=== PATIENT | male | born 1940 | race Caucasian/White ===

== ENCOUNTER 2021-06-12 11:58 | Emergency (ER) | payer MEDICARE, SELFPAY ==
--- NOTE | ~2021-06-12 | XR_ITS ---
EXAMINATION: XR chest 2V DATE: 06/12/2021 12:35 INDICATION: Cough and congestion TECHNIQUE: PA and lateral views of the chest are obtained. COMPARISON: None available FINDINGS: The lungs are free of acute opacities. There is no pleural effusion or pneumothorax. The ca rdiomediastinal silhouette is normal. There is mild thoracic spondylosis. IMPRESSION: 1. No acute cardiopulmonary abnormality. Reviewed, dictated and finalized at location A.
--- NOTE | 2021-06-12 12:07 | ED.URI ---
HPI - URI/Sore Throat General Chief Complaint: Upper Respiratory Infection Stated Complaint: Congestion, Coughing Time Seen by Provider: 06/12/21 12:20 Source: patient and RN notes reviewed Mode of arrival: ambulatory Limitations: no limitations History of Present Illness HPI Narrative: 80-year-old male presents with concern for cough, coughing fits, shortness of breath for approximately 1 week. He denies any nasal congestion, sore throat, body aches, chills, fever. Reports after a coughing fit he will sneeze and have rhinorrhea. He denies any [id number] intervention. Reports he has been vaccinated for Covid. MD elicited complaint: cough Related Data Home Medications Medication Instructions Recorded Confirmed amlodipine 5 mg PO DAILY 06/12/21 06/12/21 fluticasone propionate [Flonase 1 spray INTRANASAL DAILY 06/12/21 06/12/21 Allergy Relief] [id number]-[id number] 1 inh INHALATION DAILY 06/12/21 06/12/21 [Trelegy Ellipta] irbesartan-hydrochlorothiazide 1 tablet PO DAILY 06/12/21 06/12/21 Allergies Allergy/AdvReac Type Severity Reaction Status Date / Time pain medicine AdvReac Nausea and Uncoded 06/12/21 12:18 Vomiting Review of Systems Review of Systems: CONSTITUTIONAL: Denies malaise, chills, sweats, or fever. EYES: Denies visual changes, redness, or discharge. ENT: Reports rhinorrhea. Denies congestion, sinus pain, otalgia and sore throat. CARDIOVASCULAR: Denies chest pain, palpitations, or edema. RESPIRATORY: Reports cough, dyspnea. GASTROINTESTINAL: Denies abdominal pain, nausea, vomiting, diarrhea SKIN: Denies rash or itching. MUSCULOSKELETAL: Denies myalgia. NEUROLOGIC: Denies headache. All systems reviewed & are unremarkable except as noted in HPI and below PMFSH Comments At time of signature, agree with nursing past medical, surgical, social and family history. There is no relevant family history pertinent to the presenting complaint Exam Narrative: GENERAL: Well-appearing, well-nourished, and in no acute distress. HEAD: Normocephalic EYES: PERRLA, conjunctivae clear ENT: Nares clear. Mucous membranes moist. TM pearly negrete with dull light reflex bilaterally; no tragal tenderness. Oropharynx erythematous without lesions. Tonsils enlarged and without exudate, no drooling, no hoarseness, no trismus, uvula midline. NECK: Supple. No lymphadenopathy CHEST: Scattered inspiratory and expiratory wheeze, otherwise clear to auscultation, lower lobe slightly diminished otherwise breath sounds equal. No rhonchi, rales, or stridor. No respiratory distress, speaks in full sentences. HEART: Regular rate and rhythm. No murmur heard. SKIN: Warm, dry, no rash. NEURO: Alert and oriented x3. PSYCH: Normal mood and affect Course Course Emergency Course: Patient is aware of diagnosis, understands and agrees to treatment plan. Anticipatory guidance given. Patient agrees to follow-up as directed and is aware of reasons to seek care at the emergency department. Portions of this record may have been created with voice recognition software Vital Signs Vital signs: Reviewed. MDM - URI/Sore Throat MDM Narrative Medical decision making narrative: Differential diagnosis considered: [place] virus, strep pharyngitis, allergic rhinitis, upper respiratory tract infection, sinusitis, rhinosinusitis, nasopharyngitis. viral pharyngitis, otitis media, otitis externa, pneumonia, bronchitis, viral cough syndrome, viral syndrome, and influenza. Exam findings show no acute concerns or changes; patient is non-toxic appearing and is in no distress. Patient is appropriate for outpatient treatment and follow-up. Imaging Data My impression: Images reviewed, interpreted by radiologist, agree, see report. Radiologist's impression: EXAMINATION: XR chest 2V DATE: 06/12/2021 12:35 INDICATION: Cough and congestion TECHNIQUE: PA and lateral views of the chest are obtained. COMPARISON: None available FINDINGS: The lungs are f
[2021-06-12 12:08] VITALS: BP 106/81; PULSE 92; RESP 20; TEMP 37.3; O2SAT 100
== END 2021-06-12 13:02 | disposition home or self-care (01) ==
PROVIDERS: Emergency Provider Nurse Practitioner; PCP Internal Medicine
DX: J44.1 Chronic obstructive pulmonary disease with (acute) exacerbation (principal); E78.00 Pure hypercholesterolemia, unspecified; I10 Essential (primary) hypertension; Z85.46 Personal history of malignant neoplasm of prostate
CPT/HCPCS: 71046; 99203; G0463

== ENCOUNTER 2021-07-08 11:33 | Emergency (ER) | payer MEDICARE, SELFPAY ==
--- NOTE | ~2021-07-08 | XR_ITS ---
EXAMINATION: XR chest 2V EXAM DATE: 07/08/2021 12:06 INDICATION: Shortness of breath, frequent cough, symptoms 2 days. TECHNIQUE: Frontal and lateral projections of the chest obtained and reviewed. Comparison is made to prior examination from 06/12/2021. FINDINGS: Biapical capping. The lungs are hyperinflated which can be seen with chronic obstructive p ulmonary disease (a clinical diagnosis of functional impairment), but is not diagnostic of it. No con fluent consolidation, pneumothorax or pleural effusion suspected. There are mild bony degenerative ch anges. IMPRESSION: 1. No acute cardiopulmonary findings. Reviewed, dictated and finalized at location B.
[2021-07-08 11:40] VITALS: BP 144/77; PULSE 102; RESP 20; TEMP 36.8; O2SAT 96
--- NOTE | 2021-07-08 11:40 | ED.URI ---
HPI - URI/Sore Throat General Chief Complaint: Upper Respiratory Infection Stated Complaint: Shortness of breath, coughing Time Seen by Provider: 07/08/21 11:41 Source: patient and RN notes reviewed History of Present Illness HPI Narrative: Patient is a 80-year-old male who presents the urgent care with complaints of chronic cough and shortness of breath. Patient was seen on 12 June with a negative chest x-ray and given prednisone. Patient was then seen at his primary care office on 21 June and given prednisone and doxycycline. Patient states that his symptoms greatly improve with steroids however they have returned over the weekend. Patient states he is increased shortness of breath with exertion. States that he cannot sleep at night due to the persistent cough. Denies of any fevers. Denies of any contact or exposure with Covid. 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 No other acute complaints. No acute distress noted. Patient aware the plan of care. Some parts of this dictation were generated by voice recognition software and may contain typographical and/or grammatical inaccuracies. Related Data Home Medications Medication Instructions Recorded Confirmed amlodipine 5 mg PO DAILY 06/12/21 07/08/21 fluticasone propionate [Flonase 1 spray INTRANASAL DAILY 06/12/21 07/08/21 Allergy Relief] irbesartan-hydrochlorothiazide 1 tablet PO DAILY 06/12/21 07/08/21 budesonide-formoterol [Symbicort] See Rx Instructions .ROUTE .COMPLEX 07/08/21 07/08/21 [id number]-qknpxdprz-ahjmieyu See Rx Instructions .ROUTE .COMPLEX 07/08/21 07/08/21 [Trelegy Ellipta] montelukast 10 mg PO DAILY 07/08/21 07/08/21 simvastatin 40 mg PO DAILY 07/08/21 07/08/21 tamsulosin mg PO 07/08/21 Allergies Allergy/AdvReac Type Severity Reaction Status Date / Time pain medicine AdvReac Nausea and Uncoded 07/08/21 11:35 Vomiting Review of Systems Review of Systems: CONSTITUTIONAL: Denies fever, chills, or sweats. EYES: Denies visual changes, redness, or discharge. ENT: Denies rhinorrhea, congestion, sore throat, or otalgia. CARDIOVASCULAR: Denies chest pain, palpitations, or edema. RESPIRATORY: Reports of nonproductive cough and intermittent dyspnea GASTROINTESTINAL: Denies abdominal pain, nausea, vomiting, or diarrhea. GENITOURINARY: Denies dysuria or hematuria. SKIN: Denies rash or itching. MUSCULOSKELETAL: Denies back pain, joint pain, or myalgia. NEUROLOGIC: Denies headache, numbness, or weakness. All other systems reviewed are negative, except as documented in HPI. PMFSH Comments At the time of my signature, I reviewed and agree with the nursing past medical, surgical, social, and family history. There is no relevant family history pertinent to the patient complaint. Exam Narrative: GENERAL: This is a well-nourished, well-developed patient, in no apparent distress. HEAD: normocephalic, atraumatic. EYES: PERRL. Sclera clear/white. Vision is grossly intact. EARS: External ears normal NOSE: External nose normal with no obvious nasal discharge, nares without redness, no rhinorrhea. THROAT: Mucous membranes moist NECK: Neck supple CARDIOVASCULAR: Regular rate and rhythm without murmurs, gallops, or rubs. RESPIRATORY: Expiratory wheezes with crackles/coarseness throughout SKIN: warm, intact with no suspicious lesions or rash, good texture and turgor. NEURO: awake, alert, and oriented to person, place and time. There were no obvious focal neurologic abnormalities. EXTREMITIES: No clubbing, cyanosis, or edema. Course Vital Signs Vital signs: Vital Signs Temperature 98.3 F 07/08/21 11:40 Pulse Rate 102 H 07/08/21 11:40 Respiratory Rate 20 07/08/21 11:40 Blood Pressure 144/77 H 07/08/21 11:40 Pulse Oximetry 96 07/08/21 11:40 Temperature 98.3 F 07/08/21 11:56 Pulse Rate 102 H 07/08/21 11:56 Respiratory Ra
[2021-07-08 11:56] VITALS: BP 144/77; PULSE 102; RESP 20; TEMP 36.8; O2SAT 96
== END 2021-07-08 12:32 | disposition home or self-care (01) ==
PROVIDERS: Emergency Provider Nurse Practitioner Family; PCP Internal Medicine
DX: J44.9 Chronic obstructive pulmonary disease, unspecified (principal); E78.00 Pure hypercholesterolemia, unspecified; I10 Essential (primary) hypertension; Z85.46 Personal history of malignant neoplasm of prostate
CPT/HCPCS: 71046; 99213; G0463

== ENCOUNTER 2022-03-28 16:59 | Emergency (ER) | payer MEDICARE, SELFPAY ==
--- NOTE | ~2022-03-28 | XR_ITS ---
XR chest 2V 03/28/2022 17:20 Indication: Cough and congestion Procedure: 2 view chest Comparison: Comparison to multiple prior studies sequentially, with oldest reviewed study dated 02/2021. Findings: There is biapical pleural thickening/nodularity which is slightly more prominent than on pr ior studies. There is developing patchy bilateral airspace disease. No significant pleural effusion. The lungs are hyperinflated which is consistent with, but not diagnostic of chronic obstructive pulmo nary disease. Heart size is normal. There is atherosclerosis of the aorta. Impression: 1: Developing patchy bilateral airspace disease, compatible with pneumonia. 2: Progression of nodular pleural pleural thickening at the lung apices. Correlation with CT chest re commended for further assessment. Reviewed, dictated and finalized at location B. Impression: 1: Developing patchy bilateral airspace disease, compatible with pneumonia. 2: Progression of nodular pleural pleural thickening at the lung apices. Correl ation with CT chest recommended for further assessment.
--- NOTE | 2022-03-28 17:00 | ED.URI ---
HPI - URI/Sore Throat General Chief Complaint: Upper Respiratory Infection Stated Complaint: Chest congestion cough Time Seen by Provider: 03/28/22 17:00 Source: patient Mode of arrival: ambulatory Limitations: no limitations History of Present Illness HPI Narrative: Mr. Clarke is a an 81-year-old male patient presenting to the clinic today with complaints of cough and chest congestion x 1 week. Reports that he is having a productive cough with yellow phlegm. He denies any known fever. Reports that he is short of breath and rates his shortness of breath a 9 out of 10 currently. History of COPD MD elicited complaint: sore throat and nasal congestion Related Data Home Medications Medication Instructions Recorded Confirmed amlodipine 5 mg PO DAILY 06/12/21 03/28/22 fluticasone propionate [Flonase 1 spray INTRANASAL DAILY 06/12/21 03/28/22 Allergy Relief] irbesartan-hydrochlorothiazide 1 tablet PO DAILY 06/12/21 03/28/22 budesonide-formoterol [Symbicort] See Rx Instructions .ROUTE .COMPLEX 07/08/21 03/28/22 [id number]-[id number] See Rx Instructions .ROUTE .COMPLEX 07/08/21 03/28/22 [Trelegy Ellipta] montelukast 10 mg PO DAILY 07/08/21 03/28/22 simvastatin 40 mg PO DAILY 07/08/21 03/28/22 tamsulosin 0.4 mg PO DAILY 07/08/21 03/28/22 Allergies Allergy/AdvReac Type Severity Reaction Status Date / Time pain medicine AdvReac Nausea and Uncoded 03/28/22 17:03 Vomiting Review of Systems Review of Systems: Pertinent positives per HPI. Patient denies any fever, chills, rash, headache, visual changes, dizziness, cough, shortness of breath, chest pain, palpitations, nausea, vomiting, diarrhea, constipation, abdominal pain, or any urinary issues. PMFSH Comments At the time of my signature, I reviewed and agree with the nursing past medical, surgical, social, and family history. There is no relevant family history pertinent to the patient complaint. Exam Narrative: General: Well-developed, well nourished, in mild respiratory distress Head: Normocephalic, atraumatic Eyes: Pupils equally round and reactive to light bilaterally, EOM intact, sclera and conjunctive clear, no discharge, lids normal Ears: TMs intact and clear, ear canals clear, no drainage, grossly hearing normal. Nose: Nares patent, clear nasal discharge, clear nasal inflammation, no sinus tenderness. Mouth: Oral pharynx without lesions or masses, good dentition, MMM. Neck: Supple, trachea midline, no enlargement of anterior or posterior cervical nodes, no thyroid masses or goiter palpable. Cardio: Regular rate and rhythm, s1 and s2 normal, no murmur appreciated. Resp: Mild retractions, expiratory wheezing with rhonchi throughout, no rales or rubs Course Course Emergency Course: Portions of this record may have been created with voice recognition software. Level of Care: Express Care Visit Vital Signs Vital signs: Vital Signs Temperature 37.9 C H 03/28/22 17:05 Pulse Rate 107 H 03/28/22 17:05 Respiratory Rate 24 H 03/28/22 17:05 Blood Pressure 130/59 L 03/28/22 17:05 Pulse Oximetry 90 03/28/22 17:05 Temperature 37.9 C H 03/28/22 17:05 Pulse Rate 107 H 03/28/22 17:05 Respiratory Rate 24 H 03/28/22 17:05 Blood Pressure 130/59 L 03/28/22 17:05 Pulse Oximetry 90 03/28/22 17:05 Vital signs reviewed MDM - URI/Sore Throat MDM Narrative Medical decision making narrative: At the time of visit patient was resting comfortably on the exam table. X-ray shows probable pneumonia. Will treat with a course of azithromycin and Augmentin DuoNeb was given in the clinic and this improved his breathing. Discharge instructions were reviewed with the patient he voiced understanding Differential Diagnosis Differential diagnosis: Likely upper respiratory infection, sinusitis, viral infection, bronchitis, influenza and pharyngitis Lab Data Labs: Lab Results 03/28/22 Range/Units Unknown POC SARS CoV-2 Ag Negative (Ne
[2022-03-28 17:05] VITALS: BP 130/59; PULSE 107; RESP 24; TEMP 37.9; O2SAT 90
[2022-03-28] MEDS: IPRATROPIUM BR 0.02% INH SOLN 0.5 MG/2.5 ML VIAL INHALATION (17:40)
[2022-03-28] MEDS: ALBUTEROL SULFATE NEB 2.5 MG/3 ML INH INHALATION (17:40)
== END 2022-03-28 18:09 | disposition home or self-care (01) ==
LOC: EXPBETH 17:02
PROVIDERS: Emergency Provider Nurse Practitioner Family; PCP Internal Medicine
DX: J22 Unspecified acute lower respiratory infection (principal); Z20.822 Contact with and (suspected) exposure to COVID-19; J44.9 Chronic obstructive pulmonary disease, unspecified
CPT/HCPCS: 71046; 87426; 94640; 99213; C9803; G0463

== ENCOUNTER 2022-12-25 09:32 | Emergency (ER) | payer MEDICARE, SELFPAY ==
--- NOTE | ~2022-12-25 | XR_ITS ---
EXAMINATION: XR humerus RT DATE: 12/25/2022 10:51 INDICATION: Right upper arm injury. TECHNIQUE: 2 views of right humerus on 3 radiographs were obtained. COMPARISON: None. FINDINGS: Bone alignment is normal. No fracture. There is mild osteoarthritis of glenohumeral joint a nd severe osteoarthritis of acromioclavicular joint. IMPRESSION: 1. Polyarticular osteoarthritis. Reviewed, dictated and finalized at location A. ERS INSPECTOR
--- NOTE | ~2022-12-25 | XR_ITS ---
EXAMINATION: XR shoulder RT min 2V INDICATION: Right shoulder pain TECHNIQUE: Four views of the right shoulder are submitted. COMPARISON: None FINDINGS: Normal alignment. No fracture. There is advanced osteoarthritis at the acromioclavicular fernandez int and mild osteoarthritis of the glenohumeral joint. Soft tissues are unremarkable. IMPRESSION: 1. Osteoarthritis without acute osseous abnormality. Reviewed, dictated and finalized at location L. ING ROOM MACHINE OPERATOR
[2022-12-25 09:54] VITALS: BP 109/77; PULSE 84; RESP 20; TEMP 36.8; O2SAT 97
--- NOTE | 2022-12-25 10:26 | ED.EXTPRO ---
HPI - Extremity Problem General Chief complaint: Extremity Problem,Nontraumatic Stated complaint: Right shoulder injury Source: patient and RN notes reviewed History of Present Illness HPI Narrative: 82 yo M presents to urgent care with complaints of right upper arm pain. Pt states 3 weeks ago he was playing with his grandson when he attempted to catch his grandson running at him with his right arm. Patient states his right arm was taken back more than he was expecting and has been having pain ever since. Patient reports worsening pain when he attempts to lift his right arm. Denies any shoulder pain, numbness, tingling, neck pain, chest pain, shortness of breath. Patient has been taking Advil with moderate relief. Some parts of this dictation were generated by voice recognition software and may contain typographical and/or grammatical inaccuracies. Related Data Home Medications Medication Instructions Recorded Confirmed amlodipine 5 mg tablet 5 mg PO DAILY 06/12/21 03/28/22 fluticasone propionate 50 1 spray intranasal DAILY 06/12/21 03/28/22 mcg/actuation nasal spray,suspension (Flonase Allergy Relief) irbesartan 150 1 tablet PO DAILY 06/12/21 03/28/22 mg-hydrochlorothiazide 12.5 mg tablet budesonide-formoterol HFA 160 See Rx Instructions .Route .COMPLEX 07/08/21 03/28/22 mcg-4.5 mcg/actuation aerosol inhaler (Symbicort) fluticasone fur. 100 mcg-umeclid See Rx Instructions .Route .COMPLEX 07/08/21 03/28/22 62.5 mcg-vilant 25 mcg inhalat.powder (Trelegy Ellipta) simvastatin 40 mg tablet 40 mg PO DAILY 07/08/21 03/28/22 tamsulosin 0.4 mg capsule 0.4 mg PO DAILY 07/08/21 03/28/22 Allergies Allergy/AdvReac Type Severity Reaction Status Date / Time pain medicine AdvReac Nausea and Uncoded 03/28/22 17:03 Vomiting Review of Systems Review of Systems: CONSTITUTIONAL: Denies fever, chills, or sweats. EYES: Denies visual changes, redness, or discharge. ENT: Denies otalgia and sore throat CARDIOVASCULAR: Denies chest pain, palpitations, or edema. RESPIRATORY: Denies cough or dyspnea. GASTROINTESTINAL: Denies abdominal pain, nausea, vomiting, or diarrhea. GENITOURINARY: Denies dysuria or hematuria. SKIN: Denies rash or itching. MUSCULOSKELETAL: Right upper arm pain NEUROLOGIC: Denies headache, numbness, or weakness. PMFSH Comments At the time of my signature, I reviewed and agree with the nursing past medical, surgical, social, and family history. There is no relevant family history pertinent to the patient complaint. Exam Narrative: GENERAL: This is a well-nourished, well-developed patient, in no apparent distress. HEAD: normocephalic, atraumatic. EYES: Sclera clear/white. Vision is grossly intact. EARS: External ears normal NECK: Neck supple, non-tender without lymphadenopathy, masses or thyromegaly. CARDIOVASCULAR: Regular rate and rhythm without murmurs, gallops, or rubs. RESPIRATORY: Clear to auscultation. Breath sounds equal bilaterally. No wheezes, rales, or rhonchi. GASTROINTESTINAL: Abdomen soft, non-tender, nondistended. Bowel sounds are active. No hepato-splenomegaly, or palpable masses. No guarding. SKIN: warm, intact with no suspicious lesions or rash, good texture and turgor. NEURO: awake, alert, and oriented to person, place and time. There were no obvious focal neurologic abnormalities. EXTREMITIES: Tenderness to right mid humerus. Limited range of motion due to pain. Course Course Level of Care: Express Care Visit Vital Signs Vital signs: Vital Signs Temperature 98.2 F 12/25/22 09:54 Pulse Rate 84 12/25/22 09:54 Respiratory Rate 20 12/25/22 09:54 Blood Pressure 109/77 12/25/22 09:54 Pulse Oximetry 97 12/25/22 09:54 Oxygen Delivery Room Air 12/25/22 09:54 Temperature 98.2 F 12/25/22 09:54 Pulse Rate 84 12/25/22 09:54 Respiratory Rate 20 12/25/22 09:54 Blood Pressure 109/77 12/25/22 09:54 Pulse Oximetry 97 12/25/22 09:
== END 2022-12-25 11:22 | disposition home or self-care (01) ==
PROVIDERS: Emergency Provider Nurse Practitioner Family; PCP Internal Medicine
DX: S46.911A Strain of unspecified muscle, fascia and tendon at shoulder and upper arm level, right arm, initial encounter (principal); X50.0XXA Overexertion from strenuous movement or load, initial encounter; E78.00 Pure hypercholesterolemia, unspecified; I10 Essential (primary) hypertension; J44.9 Chronic obstructive pulmonary disease, unspecified; Z85.46 Personal history of malignant neoplasm of prostate
CPT/HCPCS: 73030; 73060; 99213; G0463

== ENCOUNTER 2023-01-10 08:51 | Emergency (ER) | payer MEDICARE, SELFPAY ==
--- NOTE | ~2023-01-10 | XR_ITS ---
EXAMINATION: XR chest 2V DATE: 01/10/2023 09:09 INDICATION: Cough and shortness of breath. Rhonchi. TECHNIQUE: Frontal and lateral views of the chest were obtained. COMPARISON: Chest 2 views 03/28/2022, 07/08/21 FINDINGS: There is chronic scarring at the lung apices. A 1.6 cm nodule overlies the heart on the lat eral view. No pleural effusion or pneumothorax. The heart size is normal. IMPRESSION: 1. 1.6 cm pulmonary nodule suspicious for infection or malignancy. Noncontrast chest CT is recommende d. 2. Stable scarring at the lung apices. Reviewed, dictated and finalized at location A. T PILE HAMMER OPERATOR IMPRESSION: 1. 1.6 cm pulmonary nodule suspicious for infection or malignancy. Noncontrast chest CT is recommended. 2. Stable scarring at the lung apices.
[2023-01-10 08:55] VITALS: BP 146/51; PULSE 92; RESP 26; TEMP 37.3; O2SAT 100
--- NOTE | 2023-01-10 08:59 | ED.SOB ---
HPI - SOB/Dyspnea General Chief Complaint: Upper Respiratory Infection Stated Complaint: Shortness Of Breath Source: patient and RN notes reviewed History of Present Illness HPI Narrative: 82-year-old male with history of COPD, presents to urgent care with complaints of shortness of breath. Patient states he has had intermittent shortness of breath for last 2 weeks but yesterday it got worse. Patient is unable to lay flat. Denies any chest pain or fevers. Does report some coughing. Patient states he took a COVID test at home which was negative. Patient states he has contacted his primary care physician and completed a course of steroids and antibiotics with no relief. Some parts of this dictation were generated by voice recognition software and may contain typographical and/or grammatical inaccuracies. Related Data Home Medications Medication Instructions Recorded Confirmed amlodipine 5 mg tablet 5 mg PO DAILY 06/12/21 03/28/22 fluticasone propionate 50 1 spray intranasal DAILY 06/12/21 03/28/22 mcg/actuation nasal spray,suspension (Flonase Allergy Relief) irbesartan 150 1 tablet PO DAILY 06/12/21 03/28/22 mg-hydrochlorothiazide 12.5 mg tablet budesonide-formoterol HFA 160 See Rx Instructions .Route .COMPLEX 07/08/21 03/28/22 mcg-4.5 mcg/actuation aerosol inhaler (Symbicort) fluticasone fur. 100 mcg-umeclid See Rx Instructions .Route .COMPLEX 07/08/21 03/28/22 62.5 mcg-vilant 25 mcg inhalat.powder (Trelegy Ellipta) simvastatin 40 mg tablet 40 mg PO DAILY 07/08/21 03/28/22 tamsulosin 0.4 mg capsule 0.4 mg PO DAILY 07/08/21 03/28/22 Allergies Allergy/AdvReac Type Severity Reaction Status Date / Time pain medicine AdvReac Nausea and Uncoded 01/10/23 09:25 Vomiting Review of Systems Review of Systems: CONSTITUTIONAL: Denies fever, chills, or sweats. EYES: Denies visual changes, redness, or discharge. ENT: Denies otalgia and sore throat CARDIOVASCULAR: Denies chest pain, palpitations, or edema. RESPIRATORY: Dyspnea and cough GASTROINTESTINAL: Denies abdominal pain, nausea, vomiting, or diarrhea. GENITOURINARY: Denies dysuria or hematuria. SKIN: Denies rash or itching. MUSCULOSKELETAL: Denies back pain, joint pain, or myalgia. NEUROLOGIC: Denies headache, numbness, or weakness. PMFSH Comments At the time of my signature, I reviewed and agree with the nursing past medical, surgical, social, and family history. There is no relevant family history pertinent to the patient complaint. Exam Narrative: GENERAL: This is a well-nourished, well-developed patient, in no apparent distress. HEAD: normocephalic, atraumatic. EYES: PERRL. Sclera clear/white. Vision is grossly intact. NECK: Neck supple, non-tender without lymphadenopathy, masses or thyromegaly. CARDIOVASCULAR: Regular rate and rhythm without murmurs, gallops, or rubs. RESPIRATORY: Rhonchi throughout on auscultation. Patient is speaking in full sentences, however, appears to be breathing heavily. GASTROINTESTINAL: Abdomen soft, non-tender, nondistended. Bowel sounds are active. No hepato-splenomegaly, or palpable masses. No guarding. SKIN: warm, intact with no suspicious lesions or rash, good texture and turgor. NEURO: awake, alert, and oriented to person, place and time. There were no obvious focal neurologic abnormalities. EXTREMITIES: No clubbing, cyanosis, or edema. No joint tenderness, effusion, or edema noted. BACK: Nontender without deformity or crepitance. No flank tenderness. Course Course Level of Care: Express Care Visit Vital Signs Vital signs: Vital Signs Temperature 99.2 F 01/10/23 08:55 Pulse Rate 92 01/10/23 08:55 Respiratory Rate 26 H 01/10/23 08:55 Blood Pressure 146/51 H 01/10/23 08:55 Pulse Oximetry 100 01/10/23 08:55 Oxygen Delivery Room Air 01/10/23 08:55 Temperature 99.2 F 01/10/23 08:55 Pulse Rate 92 01/10/23 08:55 Respiratory Rate 26 H 01/10/23 08:55 Blood Pressure 146
--- NOTE | 2023-01-10 09:13 | ECG_ITS ---
Measurements Intervals [place] Rate: 112 P: 70 DC: 155 QRS: -24 QRSD: 85 T: 77 QT: 299 QTc: 409 Interpretive Statements SINUS TACHYCARDIA VENTRICULAR PREMATURE COMPLEX DELAYED PRECORDIAL R/S TRANSITION BORDERLINE T WAVE ABNORMALITY- HIGH LATERAL LEADS BASELINE ARTIFACT- I, II, III, AVR, AVL, AVF, V4-V6 ABNORMAL ECG NO PREVIOUS ECG AVAILABLE FOR COMPARISON Electronically Signed On 01-10-2023 14:33:01 [employer] by Akbar Lisa D.O.
== END 2023-01-10 09:34 | disposition short-term general hospital (02) ==
PROVIDERS: Emergency Provider Nurse Practitioner Family
DX: R06.02 Shortness of breath (principal); R94.31 Abnormal electrocardiogram [ECG] [EKG]
CPT/HCPCS: 71046; 93005; 99215; G0463

== ENCOUNTER 2023-10-05 10:29 | Emergency (ER) | payer MEDICARE, SELFPAY ==
[2023-10-05 10:36] VITALS: BP 113/45; PULSE 77; RESP 20; TEMP 36.2; O2SAT 90
--- NOTE | 2023-10-05 10:39 | ED.URI ---
HPI - URI/Sore Throat General Chief Complaint: Upper Respiratory Infection Stated Complaint: Cough/Chest Congestion Time Seen by Provider: 10/05/23 10:42 Source: patient and RN notes reviewed Mode of arrival: ambulatory Limitations: no limitations History of Present Illness HPI Narrative: 82-year-old male presents with concern for one-week history of cough, chest congestion. He has history of COPD. Reports he was using leftover cough medicine but he is out. He reports at the beginning of his symptoms he had body aches which have resolved. He denies fever, chills, sweats. Denies known sick contacts. Reports he has not used his albuterol inhaler is he has not felt short of breath. MD elicited complaint: cough Related Data Home Medications Medication Instructions Recorded Confirmed amlodipine 5 mg tablet 5 mg PO DAILY 06/12/21 01/10/23 fluticasone propionate 50 1 spray intranasal DAILY 06/12/21 01/10/23 mcg/actuation nasal spray,suspension (Flonase Allergy Relief) irbesartan 150 1 tablet PO DAILY 06/12/21 01/10/23 mg-hydrochlorothiazide 12.5 mg tablet budesonide-formoterol HFA 160 See Rx Instructions .Route .COMPLEX 07/08/21 01/10/23 mcg-4.5 mcg/actuation aerosol inhaler (Symbicort) fluticasone fur. 100 mcg-umeclid See Rx Instructions .Route .COMPLEX 07/08/21 01/10/23 62.5 mcg-vilant 25 mcg inhalat.powder (Trelegy Ellipta) simvastatin 40 mg tablet 40 mg PO DAILY 07/08/21 01/10/23 tamsulosin 0.4 mg capsule 0.4 mg PO DAILY 07/08/21 01/10/23 Allergies Allergy/AdvReac Type Severity Reaction Status Date / Time pain medicine AdvReac Nausea and Uncoded 01/10/23 09:25 Vomiting Review of Systems Review of Systems: CONSTITUTIONAL: Denies malaise, chills, sweats, or fever. EYES: Denies visual changes, redness, or discharge. ENT: Denies rhinorrhea, congestion, sinus pain, otalgia and sore throat. CARDIOVASCULAR: Denies chest pain, palpitations, or edema. RESPIRATORY: Reports cough and chest congestion. Denies dyspnea. GASTROINTESTINAL: Denies abdominal pain, nausea, vomiting, diarrhea SKIN: Denies rash or itching. MUSCULOSKELETAL: Denies myalgia. NEUROLOGIC: Denies headache. All systems reviewed & are unremarkable except as noted in HPI and below PMFSH Comments At time of signature, agree with nursing past medical, surgical, social and family history. There is no relevant family history pertinent to the presenting complaint Exam Narrative: GENERAL: Well-appearing, well-nourished, and in no acute distress. HEAD: Normocephalic EYES: PERRLA, conjunctivae clear ENT: Nares clear. Mucous membranes moist. TM pearly negrete with dull light reflex bilaterally; no tragal tenderness. Oropharynx not erythematous without lesions. Tonsils not enlarged and without exudate, no drooling, no hoarseness, no trismus, uvula midline. NECK: Supple. No lymphadenopathy CHEST: Inspiratory and expiratory wheeze noted throughout, aeration fair. Breath sounds equal. No rales or stridor. No respiratory distress, speaks in full sentences. HEART: Regular rate and rhythm. No murmur heard. SKIN: Warm, dry, no rash. NEURO: Alert and oriented x3. PSYCH: Normal mood and affect Course Course Emergency Course: Patient is aware of diagnosis, understands and agrees to treatment plan. Anticipatory guidance given. Patient agrees to follow-up as directed and is aware of reasons to seek care at the emergency department. Portions of this record may have been created with voice recognition software Level of Care: Express Care Visit Reevaluation(s) Reevaluation #1: Aeration improved, wheezing improve. There is still some scattered wheeze. Patient reports improvement in symptoms. Date: 10/05/23 Time: 11:18 Vital Signs Vital signs: Reviewed. MDM - URI/Sore Throat MDM Narrative Medical decision making narrative: Differential diagnosis considered: [place] virus, strep pharyngitis, allergic rhinitis, upper respiratory
[2023-10-05] MEDS: IPRATROPIUM BR 0.02% INH SOLN 0.5 MG/2.5 ML VIAL INHALATION (10:54)
[2023-10-05] MEDS: ALBUTEROL SULFATE NEB 2.5 MG/3 ML INH INHALATION (10:54)
[2023-10-05 11:15] VITALS: PULSE 76; RESP 16; O2SAT 92
== END 2023-10-05 11:28 | disposition home or self-care (01) ==
PROVIDERS: Emergency Provider Nurse Practitioner; PCP Internal Medicine
DX: J44.1 Chronic obstructive pulmonary disease with (acute) exacerbation (principal)
CPT/HCPCS: 94640; 99213; G0463

== ENCOUNTER 2023-12-29 09:34 | Emergency (ER) | payer MEDICARE, SELFPAY ==
[2023-12-29 09:46] VITALS: BP 136/72; PULSE 99; RESP 20; TEMP 36.9; O2SAT 96
--- NOTE | 2023-12-29 10:03 | ED.URI ---
HPI - URI/Sore Throat General Chief Complaint: Upper Respiratory Infection Stated Complaint: cough Time Seen by Provider: 12/29/23 10:03 Source: patient, RN notes reviewed and old records reviewed Mode of arrival: ambulatory Limitations: no limitations History of Present Illness HPI Narrative: 83 year old male presents to the [facility] with complaints of cough for over 1 month duration and has seen his PCP and received medication with no resolutions in his symptoms.Patient does report that he has history of COPD and takes Trelegy inhaler daily and he has also been using nebulizer treatments.Patient was treated with Doxycycline on 12/03/2023 and Prednisone also at that time. Patient reports that cough is worse at night and he has not been resting well for several weeks. Patient reports that he has been taking OTC cough medication without relief. MD elicited complaint: cough Pertinent past history: pneumonia, COPD and other (a fib) Onset (ago): month(s) Consistency: constant Able to tolerate fluids by mouth: Yes Treatments prior to arrival: other (OTC cough medication, completed antibiotic and Prednisone) Related Data Home Medications Medication Instructions Recorded Confirmed amlodipine 5 mg tablet 5 mg PO DAILY 06/12/21 12/29/23 fluticasone propionate 50 1 spray intranasal DAILY 06/12/21 12/29/23 mcg/actuation nasal spray,suspension (Flonase Allergy Relief) irbesartan 150 1 tablet PO DAILY 06/12/21 12/29/23 mg-hydrochlorothiazide 12.5 mg tablet budesonide-formoterol HFA 160 See Rx Instructions .Route .COMPLEX 07/08/21 12/29/23 mcg-4.5 mcg/actuation aerosol inhaler (Symbicort) fluticasone fur. 100 mcg-umeclid See Rx Instructions .Route .COMPLEX 07/08/21 12/29/23 62.5 mcg-vilant 25 mcg inhalat.powder (Trelegy Ellipta) simvastatin 40 mg tablet 40 mg PO DAILY 07/08/21 12/29/23 tamsulosin 0.4 mg capsule 0.4 mg PO DAILY 07/08/21 12/29/23 Allergies Allergy/AdvReac Type Severity Reaction Status Date / Time No Known Allergies Allergy Verified 12/29/23 10:11 Review of Systems Review of Systems: CONSTITUTIONAL: Reports malaise,no chills, sweats, or fever. EYES: Denies visual changes, redness, or discharge. ENT: Reports rhinorrhea, congestion, no sinus pain, no otalgia and no sore throat. CARDIOVASCULAR: Denies chest pain, palpitations, or edema. RESPIRATORY: Reports cough.? Reports some dyspnea with exertion at times GASTROINTESTINAL: Denies abdominal pain, nausea, vomiting, diarrhea SKIN: Denies rash or itching. MUSCULOSKELETAL: Denies myalgia. NEUROLOGIC: Denies headache. All systems reviewed & are unremarkable except as noted in HPI and below PMFSH Past Medical History Medical History (Updated 12/30/23 @ 11:33 by Mallory Power NP) Atrial fibrillation Chronic obstructive pulmonary disease (COPD) Hyperlipidemia Hypertension Pneumonia Surgical History Surgical History (Updated 12/30/23 @ 11:36 by Mallory Power NP) H/O inguinal hernia repair History of lumbosacral spine surgery Social History Social History (Updated 12/30/23 @ 11:34 by Mallory Power NP) Smoking status: Former smoker Alcohol intake: current Alcohol use details: social Substance use type: does not use Living arrangements: with family Occupation/Education: retired Gender identity (if verbalized by the patient): Male Comments At time of signature, agree with nursing past medical, surgical, social and family history. There is no relevant family history pertinent to the presenting complaint Exam Narrative: GENERAL: Well-appearing, well-nourished, and in no acute distress. HEAD: Normocephalic EYES: PERRLA, conjunctivae clear ENT: Nares clear, turbinates edematous and erythematous, clear discharge. Mucous membranes moist. TM pearly negrete with dull light reflex bilaterally; no tragal tenderness. Oropharynx erythematous without lesions. Tonsils not enlarged and withou
== END 2023-12-29 10:30 | disposition home or self-care (01) ==
PROVIDERS: Emergency Provider Registered Nurse; PCP Internal Medicine
DX: R05.9 Cough, unspecified (principal); J40 Bronchitis, not specified as acute or chronic; Z87.891 Personal history of nicotine dependence; I48.91 Unspecified atrial fibrillation; J44.9 Chronic obstructive pulmonary disease, unspecified; E78.5 Hyperlipidemia, unspecified; I10 Essential (primary) hypertension
CPT/HCPCS: 99213; G0463

== ENCOUNTER 2024-01-19 11:02 | Emergency (ER) | payer MEDICARE, SELFPAY ==
[2024-01-19 11:07] VITALS: BP 132/84; PULSE 83; RESP 20; TEMP 36.1; O2SAT 95
--- NOTE | 2024-01-19 11:19 | ECG_ITS ---
Measurements Intervals [place] Rate: 76 P: 1 [place]: 154 QRS: -11 QRSD: 105 T: 77 QT: 362 QTc: 408 Interpretive Statements SINUS RHYTHM VENTRICULAR PREMATURE COMPLEX BORDERLINE ECG COMPARED TO ECG 01/10/2023 09:13:13 SINUS RHYTHM NOW PRESENT Electronically Signed On 01-19-2024 11:25:03 CDT by Akbar Lisa D.O.
--- NOTE | 2024-01-19 11:53 | ED.GENADULT ---
HPI - General Adult General Chief complaint: Syncope Stated complaint: Feeling of Passing Out Source: patient Mode of arrival: ambulatory Limitations: no limitations History of Present Illness HPI narrative: Patient presents for evaluation of near syncope. He indicates he has had ten episodes today where he felt like he was going to pass out. No history of similar symptoms in the past. Denies any chest pain or shortness of breath. He has experienced a cough for the past few weeks. He has an underlying history of COPD and continues to smoke. He indicates he has a newer diagnosis of atrial fibrillation is currently anticoagulated with Eliquis. He has a pulse oximeter at home and it sounds like his heart rate today has been alternating between the 70s and 110's. Related Data Home Medications Medication Instructions Recorded Confirmed amlodipine 5 mg tablet 5 mg PO DAILY 06/12/21 12/29/23 irbesartan 150 1 tablet PO DAILY 06/12/21 12/29/23 mg-hydrochlorothiazide 12.5 mg tablet budesonide-formoterol HFA 160 See Rx Instructions .Route .COMPLEX 07/08/21 12/29/23 mcg-4.5 mcg/actuation aerosol inhaler (Symbicort) fluticasone fur. 100 mcg-umeclid See Rx Instructions .Route .COMPLEX 07/08/21 12/29/23 62.5 mcg-vilant 25 mcg inhalat.powder (Trelegy Ellipta) simvastatin 40 mg tablet 40 mg PO DAILY 07/08/21 12/29/23 tamsulosin 0.4 mg capsule 0.4 mg PO DAILY 07/08/21 12/29/23 apixaban 5 mg tablet (Eliquis) mg 01/19/24 metoprolol tartrate 25 mg tablet mg 01/19/24 Allergies Allergy/AdvReac Type Severity Reaction Status Date / Time No Known Allergies Allergy Verified 12/29/23 10:11 Review of Systems Review of Systems: CONSTITUTIONAL: Denies fever, chills, or sweats. EYES: Denies visual changes, redness, or discharge. ENT: Denies rhinorrhea, congestion, sore throat, or otalgia. CARDIOVASCULAR: Denies chest pain, palpitations, or edema. RESPIRATORY: Reports cough. Denies shortness of breath. GASTROINTESTINAL: Denies abdominal pain, nausea, vomiting, or diarrhea. GENITOURINARY: Denies dysuria or hematuria. SKIN: Denies rash or itching. MUSCULOSKELETAL: Denies back pain, joint pain, or myalgia. NEUROLOGIC: Reports several episodes today where he felt like he was going to pass out. Denies headache or numbness PMFSH Past Medical History Medical History Atrial fibrillation Chronic obstructive pulmonary disease (COPD) Hyperlipidemia Hypertension Pneumonia Surgical History Surgical History H/O inguinal hernia repair History of lumbosacral spine surgery Family History Family History Mother Family history unknown Social History Social History (Updated 01/19/24 @ 11:57 by EMILIE Polo, ) Smoking status: Current some day smoker Tobacco type: cigarettes Alcohol intake: current Alcohol use details: social Substance use type: does not use Living arrangements: with family Occupation/Education: retired Gender identity (if verbalized by the patient): Male Sexual Orientation (if Verbalized by the Patient): Straight or Heterosexual Exam Narrative: GENERAL: Well-appearing, well-nourished, and in no acute distress. HEAD: Normocephalic, atraumatic. EYES: PERRLA and EOMI. ENT: Nares clear, no rhinorrhea or epistaxis. Mucous membranes moist. Oropharynx without tonsillar hypertrophy exudate or other lesions. Bilateral TMs pearly negrete nonbulging NECK: Supple. No adenopathy or masses. No carotid bruits or JVD CHEST: Wheezing and rales noted in bilateral lung carl anteriorly HEART: Regular rate and rhythm. No murmur heard. Normal peripheral pulses. ABDOMEN: Soft, nontender, nondistended, normal active bowel sounds. EXTREMITIES: Normal range of motion. No edema. SKIN: Warm, dry, no rash. NEURO: No
== END 2024-01-19 12:04 | disposition short-term general hospital (02) ==
PROVIDERS: Emergency Provider Nurse Practitioner; PCP Internal Medicine
DX: R55 Syncope and collapse (principal); I48.91 Unspecified atrial fibrillation; J44.9 Chronic obstructive pulmonary disease, unspecified; E78.5 Hyperlipidemia, unspecified; I10 Essential (primary) hypertension; F17.210 Nicotine dependence, cigarettes, uncomplicated; Z79.899 Other long term (current) drug therapy; Z79.01 Long term (current) use of anticoagulants
CPT/HCPCS: 93005; 99213; G0463

== ENCOUNTER 2024-04-11 09:14 | Outpatient (CLI) | payer MEDICARE, SELFPAY ==
--- NOTE | ~2024-04-11 | US_ITS ---
US retroperitoneal comp 04/11/2024 10:05 Procedure: Realtime transabdominal ultrasound of the kidneys and bladder. Indication: Renal mass Comparison: No prior studies for comparison. Findings: Renal echotexture is normal bilaterally without hydronephrosis, contour deforming mass or r enal calculus. There are multiple bilateral renal cysts, largest on the right measuring 1.[address] left renal cyst measures 5.1 cm. The right kidney measures 9.8 cm and left kidney measures 11.4 cm . Bladder within normal limits. Prostate gland is enlarged. Impression: 1: Bilateral renal cysts. 2: Enlarged prostate gland. Reviewed, dictated and finalized at location B. Impression: 1: Bilateral renal cysts. 2: Enlarged prostate gland.
== END 2024-04-11 09:15 | disposition home or self-care (01) ==
PROVIDERS: PCP Internal Medicine; Visit Provider Urology
DX: N28.89 Other specified disorders of kidney and ureter (principal); N28.1 Cyst of kidney, acquired; N40.0 Benign prostatic hyperplasia without lower urinary tract symptoms
CPT/HCPCS: 76770

== ENCOUNTER 2024-10-16 09:27 | Emergency (ER) | payer MEDICARE, SELFPAY ==
--- NOTE | ~2024-10-16 | XR_ITS ---
EXAMINATION: XR chest 2V DATE: 10/16/2024 10:15 INDICATION: Cough. TECHNIQUE: Frontal and lateral views of the chest were obtained. COMPARISON: Chest 2 views 01/10/2023 FINDINGS: There is scarring at the lung apices. There are reticulonodular opacities in the lower lung zones. No pleural effusion or pneumothorax. The heart size is normal. IMPRESSION: 1. Stable scarring at the lung apices. 2. Reticulonodular opacities in the lower lung zones, consistent with pulmonary edema versus pneumoni a versus atelectasis. Reviewed, dictated and finalized at location A. K BROKER SUPERVISOR IMPRESSION: 1. Stable scarring at the lung apices. 2. Reticulonodular opacities in the lower lung zones, consistent with pulmonary edema versus pneumonia versus atelectasis.
[2024-10-16 09:42] VITALS: BP 124/59; PULSE 91; RESP 20; TEMP 36.3; O2SAT 94
--- NOTE | 2024-10-16 10:06 | ED.GENADULT ---
HPI - General Adult General Chief complaint: Upper Respiratory Infection Stated complaint: Chest Congestion/Cough/Shortness of Breath Source: patient Mode of arrival: ambulatory Limitations: no limitations History of Present Illness HPI narrative: Patient presents for evaluation of respiratory symptoms for the last 2 days. Symptoms include hot flashes, chills, cough, shortness of breath, and pleuritic chest pain. No nausea, vomiting, diarrhea, sore throat. His great grandchild currently has a cough. Pt has an underlying history of COPD. He smokes about 5 cigarettes per week. Related Data Home Medications Medication Instructions Recorded Confirmed amlodipine 5 mg tablet 5 mg PO DAILY 06/12/21 10/16/24 irbesartan 150 1 tablet PO DAILY 06/12/21 10/16/24 mg-hydrochlorothiazide 12.5 mg tablet budesonide-formoterol HFA 160 See Rx Instructions .Route .COMPLEX 07/08/21 10/16/24 mcg-4.5 mcg/actuation aerosol inhaler (Symbicort) fluticasone fur. 100 mcg-umeclid See Rx Instructions .Route .COMPLEX 07/08/21 10/16/24 62.5 mcg-vilant 25 mcg inhalat.powder (Trelegy Ellipta) simvastatin 40 mg tablet 40 mg PO DAILY 07/08/21 10/16/24 tamsulosin 0.4 mg capsule 0.4 mg PO DAILY 07/08/21 10/16/24 apixaban 5 mg tablet (Eliquis) 5 mg PO DAILY 01/19/24 10/16/24 metoprolol tartrate 25 mg tablet 25 mg PO DAILY 01/19/24 10/16/24 Allergies Allergy/AdvReac Type Severity Reaction Status Date / Time No Known Allergies Allergy Verified 10/16/24 09:48 Review of Systems Review of Systems: CONSTITUTIONAL: reports hot flashes and chills. EYES: Denies visual changes, redness, or discharge. ENT: Denies rhinorrhea, congestion, sore throat, or otalgia. CARDIOVASCULAR: Denies palpitations, or edema. RESPIRATORY: Reports cough and shortness of breath GASTROINTESTINAL: Denies abdominal pain, nausea, vomiting, or diarrhea. GENITOURINARY: Denies dysuria or hematuria. SKIN: Denies rash or itching. MUSCULOSKELETAL: Denies back pain, joint pain, or myalgia. NEUROLOGIC: Denies headache, numbness, dizziness, or weakness. PSYCHIATRIC: Denies anxiety or depression. [facility] Past Medical History Medical History Atrial fibrillation Chronic obstructive pulmonary disease (COPD) Hyperlipidemia Hypertension Pneumonia Surgical History Surgical History H/O inguinal hernia repair History of lumbosacral spine surgery Family History Family History Mother Family history unknown Social History Social History Smoking status: Current some day smoker Tobacco type: cigarettes Alcohol intake: current Alcohol use details: social Substance use type: does not use Living arrangements: with family Occupation/Education: retired Gender identity (if verbalized by the patient): Male Sexual Orientation (if Verbalized by the Patient): Straight or Heterosexual Exam Narrative: GENERAL: Well-appearing, well-nourished, and in no acute distress. HEAD: Normocephalic, atraumatic. EYES: PERRLA and EOMI. ENT: Nares clear, no rhinorrhea or epistaxis. Mucous membranes moist. Oropharynx without tonsillar hypertrophy exudate or other lesions. Bilateral TMs pearly negrete nonbulging NECK: Supple. No adenopathy or masses. No carotid bruits or JVD CHEST: Wheezing and rales noted in bilateral lung carl HEART: Regular rate and rhythm. No murmur heard. Normal peripheral pulses. ABDOMEN: Soft, nontender, nondistended, normal active bowel sounds. EXTREMITIES: Normal range of motion. No edema. SKIN: Warm, dry, no rash. NEURO: No focal deficits. Alert and oriented x3. PSYCH: Normal mood and affect. Course Course Emergency Course: this is an 83-year-old male who presented for evaluation of respiratory symptoms. Chest x-ray consistent with pneumonia. He was given nebulizer treatment and steroids while here. He will be discharge with Augmentin, azithromycin, prednisone, albuterol. He is advised not to smoke. He should follow-up with his primary provider tomorrow and go to the ER for worsening symptoms. Saturations here are normal. Patient is in agreement with plan of care. Level of Care: Express Care Visit Vital Signs Vital signs: Vital Signs Temperature 36.3 C L 10/16/24 09:42 Pulse Rate 91 10/16/24 09:42 Respiratory Rate 20 10/16/24 09:42 Blood Pressure 124/59 L 10/16/24 09:42 Pulse Oximetry 94 10/16/24 09:42 Temperature 36.3 C L 10/16/24 09:42 Pulse Rate 91 10/16/24 09:42 Respiratory Rate 20 10/16/24 09:42 Blood Pressure 124/59 L 10/16/24 09:42 Pulse Oximetry 94 10/16/24 09:42 Medical Decision Making Vital Signs Vital Signs: Vital Signs Temperature 36.3 C L 10/16/24 09:42 Pulse Rate 91 10/16/24 09:42 Respiratory Rate 20 10/16/24 09:42 Blood Pressure 124/59 L 10/16/24 09:42 Pulse Oximetry 94 10/16/24 09:42 Temperature 36.3 C L 10/16/24 09:42 Pulse Rate 91 10/16/24 09:42 Respiratory Rate 20 10/16/24 09:42 Blood Pressure 124/59 L 10/16/24 09:42 Pulse Oximetry 94 10/16/24 09:42 Imaging Data Radiologist's impression: EXAMINATION: XR chest 2V DATE: 10/16/2024 10:15 INDICATION: Cough. TECHNIQUE: Frontal and lateral views of the chest were obtained. COMPARISON: Chest 2 views 01/10/2023 FINDINGS: There is scarring at the lung apices. There are reticulonodular opacities in the lower lung zones. No pleural effusion or pneumothorax. The heart size is normal. IMPRESSION: 1. Stable scarring at the lung apices. 2. Reticulonodular opacities in the lower lung zones, consistent with pulmonary edema versus pneumonia versus atelectasis. Discharge Plan Discharge Clinical Impression: Community acquired pneumonia, COPD exacerbation Patient Disposition: Home, Self-Care Condition: Stable Instructions: Antibiotic Form, How to Stop Smoking (ED), COPD (Chronic Obstructive Pulmonary Disease) (ED), Pneumonia (ED) Additional Instructions: PLEASE DO NOT SMOKE CALL YOUR PRIMARY PROVIDER TOMORROW FOR A FOLLOW UP APPOINTMENT FOR WORSENING SYMPTOMS, PLEASE GO TO THE ER Patient Language: [place] Prescriptions: New prednisone 50 mg tablet 50 mg PO DAILY Qty: 5 0RF azithromycin 250 mg tablet See Rx Instructions .ROUTE .COMPLEX Qty: 6 0RF Rx Instructions: For 250 mg dose pack: take 500 mg today (day 1), then 250 mg for 4 days (days 2-5) amoxicillin-pot clavulanate 875-125 mg tablet 1 tablet PO Q12H Qty: 20 0RF albuterol sulfate 90 mcg/actuation HFA aerosol inhaler 2 puff inhalation QID PRN (Reason: shortness of breath or wheezing) Qty: 8.5 0RF No Action irbesartan-hydrochlorothiazide 150-12.5 mg Tablet 1 tablet PO DAILY amlodipine 5 mg Tablet 5 mg PO DAILY albuterol sulfate 90 mcg/actuation HFA aerosol inhaler 2 puff INHALATION QID PRN (Reason: shortness of breath or wheezing) Qty: 8.5 0RF metoprolol tartrate 25 mg tablet 25 mg PO DAILY Eliquis 5 mg tablet 5 mg PO DAILY Trelegy Ellipta 100-62.5-25 mcg blister with device See Rx Instructions .ROUTE .COMPLEX Rx Instructions: as prescribed tamsulosin 0.4 mg capsule 0.4 mg PO DAILY budesonide-formoterol [Symbicort] 160-4.5 mcg/actuation HFA aerosol inhaler See Rx Instructions .ROUTE .COMPLEX Rx Instructions: as prescribed simvastatin 40 mg tablet 40 mg PO DAILY codeine-guaifenesin 10-100 mg/5 mL liquid 5 ml PO Q6H PRN (Reason: cough) Qty: 120 0RF Rx Instructions: take at night can not drive while taking this medication Follow-up/Referrals: Surya,Tanmay Bettencourt MD [Primary Care Provider] - Time of Disposition: 10:45
[2024-10-16] MEDS: methylPREDNISolone SOD SUCC 125 MG VIAL IM (10:17)
[2024-10-16] MEDS: IPRATROPIUM 0.5 MG/ALBUTEROL SULFATE 2.5 MG AMPUL.NEB 3 ML INHALATION (10:18)
== END 2024-10-16 10:50 | disposition home or self-care (01) ==
PROVIDERS: Emergency Provider Nurse Practitioner; PCP Internal Medicine
DX: J18.9 Pneumonia, unspecified organism (principal); J44.1 Chronic obstructive pulmonary disease with (acute) exacerbation; F17.210 Nicotine dependence, cigarettes, uncomplicated; I48.91 Unspecified atrial fibrillation; I10 Essential (primary) hypertension; E78.5 Hyperlipidemia, unspecified
CPT/HCPCS: 71046; 96372; 99213; G0463; J2919

== ENCOUNTER 2024-10-22 09:12 | Emergency (ER) | payer MEDICARE, SELFPAY ==
--- NOTE | ~2024-10-22 | XR_ITS ---
EXAMINATION: XR chest 2V DATE: 10/22/2024 09:39 INDICATION: Continued cough TECHNIQUE: frontal and lateral views of the chest were obtained. COMPARISON: Chest radiograph dated 10/16/2024 FINDINGS: Again seen is prominent pleural parenchymal scarring at the bilateral apices of lungs. Unchanged mild streaky atelectasis/scarring at the anterior lung bases. No pulmonary edema, pleural effusion or pne umothorax. The cardiomediastinal silhouette is normal. Mild to moderate thoracic spondylosis. IMPRESSION: 1. 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 Reviewed, dictated and finalized at location [facility]. [facility] IMPRESSION: 1. Chronic pleural parenchymal scarring at the apices and mild streaky bibasila r atelectasis.
[2024-10-22 09:22] VITALS: BP 150/84; PULSE 76; RESP 16; TEMP 36.1; O2SAT 97
--- NOTE | 2024-10-22 09:40 | ED_ITS ---
HPI - URI/Sore Throat General Chief Complaint: Upper Respiratory Infection Stated Complaint: Chest congestion/tight/headache History of Present Illness HPI Narrative: Patient complaining of continued cough and wheezing at times. No fever no body aches no shortness of breath no chest pain. Patient states he was here and treated for pneumonia but continues to have a cough. Patient has a home nebulizer but has not been using it but has been using home inhalers as prescribed. Patient denies any shortness of breath no chest pain. Related Data Home Medications ?Medication ?Instructions ?Recorded ?Confirmed ?Last Taken ?Type amlodipine 5 mg tablet 5 mg PO DAILY 06/12/21 10/22/24 Unknown History irbesartan 150 1 tablet PO DAILY 06/12/21 10/22/24 Unknown History mg-hydrochlorothiazide 12.5 mg tablet budesonide-formoterol HFA 160 See Rx Instructions .Route .COMPLEX 07/08/21 10/22/24 Unknown History mcg-4.5 mcg/actuation aerosol inhaler (Symbicort) fluticasone fur. 100 mcg-umeclid See Rx Instructions .Route .COMPLEX 07/08/21 10/22/24 Unknown History 62.5 mcg-vilant 25 mcg inhalat.powder (Trelegy Ellipta) simvastatin 40 mg tablet 40 mg PO DAILY 07/08/21 10/22/24 Unknown History tamsulosin 0.4 mg capsule 0.4 mg PO DAILY 07/08/21 10/22/24 Unknown History apixaban 5 mg tablet (Eliquis) 5 mg PO DAILY 01/19/24 10/22/24 Unknown History metoprolol tartrate 25 mg tablet 25 mg PO DAILY 01/19/24 10/22/24 Unknown History Allergies Allergy/AdvReac Type Severity Reaction Status Date / Time No Known Allergies Allergy Verified 10/16/24 09:48 Review of Systems Review of Systems: CONSTITUTIONAL: Denies chills, or sweats. Reports fever and generalized body aches EYES: Denies visual changes, redness, or discharge. ENT: Denies otalgia. Reports nasal congestion runny nose and sore throat CARDIOVASCULAR: Denies chest pain, palpitations, or edema. RESPIRATORY: Denies dyspnea. Reports occasional cough GASTROINTESTINAL: Denies abdominal pain, nausea, vomiting, or diarrhea. GENITOURINARY: Denies dysuria or hematuria. SKIN: Denies rash or itching. MUSCULOSKELETAL: Denies back pain, joint pain, or myalgia. Reports generalized body aches NEUROLOGIC: Denies headache, numbness, or weakness. PSYCHIATRIC: Denies anxiety or depression. [facility] Past Medical History Medical History Atrial fibrillation Chronic obstructive pulmonary disease (COPD) Hyperlipidemia Hypertension Pneumonia Surgical History Surgical History H/O inguinal hernia repair History of lumbosacral spine surgery Family History Family History Mother Family history unknown Social History Social History Smoking status: Current some day smoker Tobacco type: cigarettes Alcohol intake: current Alcohol use details: social Substance use type: does not use Living arrangements: with family Occupation/Education: retired Gender identity (if verbalized by the patient): Male Sexual Orientation (if Verbalized by the Patient): Straight or Heterosexual Comments At time of signature, agree with nursing past medical, surgical, social and family history. There is no relevant family history pertinent to the presenting complaint Exam Narrative: The patient is a well-developed, well-nourished in no acute distress. SKIN: Skin is warm and dry without erythema, swelling or exudate. There is good turgor. No tenting. HEAD: Atraumatic. Normocephalic. No temporal or scalp tenderness. EYES: Moist and bright. Sclera and conjunctivae normal. No discharge. PERRLA. Extraocular motions intact. Gross visual acuity intact. EARS: Pinna is normal shape and contour. Clear external auditory canals. TM pearly caruso with good cone of light, no erythema or suppuration. Bilateral ceru men noted no gross hearing deficit. NOSE: pink, moist mucosa with good air movement. Clear rhinorrhea without nasal flaring. Septum midline. Mouth: moist mucous membranes. THROAT; mild erythema noted to posterior oropharynx with moderate postnasal drainage. Without exudate or ulceration.. Uvula midline. Normal movement of soft palate. NECK: Supple and nontender with full range of motion without discomfort. No meningeal signs. LUNGS: Equal and bilateral breath sounds with wheezes, without rales or rhonchi. CHEST: The chest wall is without retractions or use of accessory muscles. HEART: Has a regular rate and rhythm without murmur, gallops, click or rub. ABDOMEN: Soft, nontender with positive active bowel sounds. No rebound tenderness. EXTREMITIES: Without cyanosis, clubbing or edema. Equal 2+ distal pulses and 2 second capillary refill noted. NEUROLOGIC: alert, active, . The patient moves all extremities with normal muscle strength. Normal muscle tone is noted. Normal coordination is noted. NO focal neurological findings noted. Course Course Level of Care: Express Care Visit Vital Signs Vital signs: Vital Signs Temperature 36.1 C L 10/22/24 09:22 Pulse Rate 76 10/22/24 09:22 Respiratory Rate 16 10/22/24 09:22 Blood Pressure 150/84 H 10/22/24 09:22 Pulse Oximetry 97 10/22/24 09:22 Oxygen Delivery Room Air 10/22/24 09:22 Temperature 36.1 C L 10/22/24 09:22 Pulse Rate 76 10/22/24 09:22 Respiratory Rate 16 10/22/24 09:22 Blood Pressure 150/84 H 10/22/24 09:22 Pulse Oximetry 97 10/22/24 09:22 Oxygen Delivery Room Air 10/22/24 09:22 Patient declines emergency room transfer states he would like to start back on his home nebulizer treatments since nebulizer treatments here in the Urgent Care improve his breathing immensely. Patient states he feels much bath after after nebulizer treatment and is ready go home. Patient does request a steroid injection states that help some as well. Discussed with patient need to follow up with primary care provider in 1-2 days to call Thursday for office appointment for follow-up. Patient does have a animal rehabilitator and has an appointment to follow up with him in the near future. Patient states he had a recent CT scan of his chest with and without contrast but does not aware of the results. Discussed pain with patient importance if any recurrence of symptoms or any worsening of present symptoms must go the emergency room for further evaluation treatment. Patient verbalized understanding of care. wheezes resolved after nebulizer treatment pulse ox 98% room air MDM - URI/Sore Throat Imaging Data Radiologist's impression: [facility] [address] [place] [address] XRay Report Signed Patient: Xavier Clarke : 1940 MR#: [id number] Age: 83 Acct:[id number] Loc: EXP ADM Date: 10/22/24Attending Dr: Ordering Physician: Rosario Escobar APRN Date of Service: 10/22/24 Procedure(s): XR chest 2V Accession Number(s): [id number] cc: Surya, Cassius Bettencourt MD; Rosario Escobar APRN~ EXAMINATION: XR chest 2V DATE: 10/22/2024 09:39 INDICATION: Continued cough TECHNIQUE: frontal and lateral views of the chest were obtained. COMPARISON: Chest radiograph dated 10/16/2024 FINDINGS: Again seen is prominent pleural parenchymal scarring at the bilateral apices of lungs. Unchanged mild streaky atelectasis/scarring at the anterior lung bases. No pulmonary edema, pleural effusion or pneumothorax. The cardiomediastinal silhouette is normal. Mild to moderate thoracic spondylosis. IMPRESSION: 1. 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 Discharge Plan Discharge Clinical Impression: COPD (chronic obstructive pulmonary disease), COPD exacerbation Patient Disposition: Home, Self-Care Condition: Stable Additional Instructions: Use home nebulizer machine 3 times a day as prescribed by primary care provider Finish all medications as prescribed from today's and previous visit. Follow-up with animal rehabilitator as planned Call primary care provider's office Thursday morning for follow-up appointment in 1-2 days If any new or worsening symptoms go the emergency room immediately further evaluation treatment Patient Language: Iranian Prescriptions: New albuterol sulfate 2.5 mg /3 mL (0.083 %) solution for nebulization 2.5 mg INHALATION Q4H PRN (Reason: shortness of breath or wheezing) 10 Days Qty: 250 0RF prednisone 20 mg tablet 40 mg PO DAILY 5 Days Qty: 10 0RF No Action irbesartan-hydrochlorothiazide 150-12.5 mg Tablet 1 tablet PO DAILY amlodipine 5 mg Tablet 5 mg PO DAILY albuterol sulfate 90 mcg/actuation HFA aerosol inhaler 2 puff INHALATION QID PRN (Reason: shortness of breath or wheezing) Qty: 8.5 0RF metoprolol tartrate 25 mg tablet 25 mg PO DAILY Eliquis 5 mg tablet 5 mg PO DAILY Trelegy Ellipta 100-62.5-25 mcg blister with device See Rx Instructions .ROUTE .COMPLEX Rx Instructions: as prescribed tamsulosin 0.4 mg capsule 0.4 mg PO DAILY budesonide-formoterol [Symbicort] 160-4.5 mcg/actuation HFA aerosol inhaler See Rx Instructions .ROUTE .COMPLEX Rx Instructions: as prescribed simvastatin 40 mg tablet 40 mg PO DAILY codeine-guaifenesin 10-100 mg/5 mL liquid 5 ml PO Q6H PRN (Reason: cough) Qty: 120 0RF Rx Instructions: take at night can not drive while taking this medication prednisone 50 mg tablet 50 mg PO DAILY Qty: 5 0RF azithromycin 250 mg tablet See Rx Instructions .ROUTE .COMPLEX Qty: 6 0RF Rx Instructions: For 250 mg dose pack: take 500 mg today (day 1), then 250 mg for 4 days (days 2-5) amoxicillin-pot clavulanate 875-125 mg tablet 1 tablet PO Q12H Qty: 20 0RF albuterol sulfate 90 mcg/actuation HFA aerosol inhaler 2 puff inhalation QID PRN (Reason: shortness of breath or wheezing) Qty: 8.5 0RF Follow-up/Referrals: Surya,Tanmay Bettencourt MD [Primary Care Provider] -
[2024-10-22] MEDS: ALBUTEROL SULFATE NEB 2.5 MG/3 ML INH INHALATION (09:57)
[2024-10-22] MEDS: IPRATROPIUM BR 0.02% INH SOLN 0.5 MG/2.5 ML VIAL INHALATION (09:57)
[2024-10-22] MEDS: methylPREDNISolone SOD SUCC 125 MG VIAL IM (10:31)
--- OUTSIDE RECORDS SUMMARY | 2024-10-26 01:14 | XMS_ITS ---
Laboratory report Created on: July 22, 2024 CLARITA JUAN : 1940 Sex: Male Author Name VAN WHITING [facility] Unknown PROBLEMS Problems List Code Description C61 RESULTS Laboratory Orders Date Order Code Test 2023-09-23 [id number] PROSTATE-SPECIFI C AG Laboratory Results Date LOINC Test Value Unit Reference Range Interpre tation 2023-09-23 2857-1 PROSTATE SPECIFIC AG 3.1 NG/ML 0.0-4.0
--- OUTSIDE RECORDS SUMMARY | 2024-10-26 01:14 | XMS_ITS | Encounter Summary ---
Author Organization [facility] Address [address] [place] [address] Phone Care Team Providers Care Business Quality Assurance Analyst Name Role Phone Cassius London MD Primary Care Provider [phone] [phone] Reason for Referral * Radiology Services (Urgent) - Closed Specialty Diagnoses / Procedures Referred By It[place] t Referred To Contact Radiology Diagnoses Lower abdominal pain Diarrhea, unspecified type Chronic kidney disease, stage II (mild) Procedures CT ABDOMEN PELVIS W/ CONTRAST Cassius London MD Phone: tel: fax: Referral ID Status Reason Start Date Expiration Date Visits Re quested Visits Authorized [id number] Closed 04/24/2020 1 2 Reason for Visit * Radiology Services (Urgent) - Closed Specialty Diagnoses / Procedures Referred By Contac t Referred To Contact Radiology Diagnoses Lower abdominal pain Diarrhea, unspecified type Chronic kidney disease, stage II (mild) Procedures CT ABDOMEN PELVIS W/ CONTRAST Cassius London MD Phone: tel: fax: Referral ID Status Reason Start Date Expiration Date Visits Re quested Visits Authorized [id number] Closed 04/24/2020 1 2 Encounter Details Date Type Department Care Team (Late st Contact Info) Description 04/25/2020 7:15 AM CDT - 04/25/2020 11:59 PM CDT Hospital Encounter [facility] CT [address] [place] [address] Cassius London MD 6 [facility] [address] [place] [address] Discharge Disposition: Discharged to home or Selfcare Social History Tobacco Use Types Packs/Day Years Used Date Smoking Tobacco: Never Assessed Sex and Gender Information Value Date Recorded Sex Assigned at Not on file Legal Sex Male 11:10 PM CDT Gender Identity Not on file Sexual Orientation Not on file COVID-19 Exposure Response Date Recorded In the last month, have you been in contact with someone who was confirmed or suspected to have Coronavirus / COVID-19? No / Unsure 04/25/2020 7:01 AM CDT documented as of this encounter Plan of Treatment Not on file documented as of this encounter Procedures Procedure Name Priority Date/Time Associated Diagnosis Comments CT ABDOMEN PELVIS W/ CONTRAST CARLOS 04/25/2020 8:19 AM CDT Lower abdominal pain Diarrhea, unspecified type Chronic kidney disease, stage II (mild) POCT CREATININE Routine 04/25/2020 8:06 AM CDT documented in this encounter Results * CT ABDOMEN PELVIS W/ CONTRAST (04/25/2020 8:19 AM CDT) Anatomical Region Laterality Modality Abdomen N/A Computed Tomogra phy 04/25/2020 9:42 AM CDT Addenda Addendum by Ko Zaldivar MD on 04/25/2020 2:07 PM CDT ADDENDUM: ??This addendum report supersedes the original report dated 04/25/2020 Findings were discussed with Arlette medical service technician at Dr. London's office on 04/25/2020 at 2:04 p.m. THIS IS AN ELECTRONICALLY VERIFIED FINAL REPORT 04/25/2020 2:04 PM - Electronically signed by Ko Zaldivar M.D. LEX: LEX D: ??04/25/2020 2:04 PM T: ??04/25/2020 2:04 PM Report ID: [id number] Reading Location: ??[id number] EXAM DESCRIPTION: ?? CT ABDOMEN PELVIS W/ CONTRAST REASON FOR STUDY: ?? Lower abdominal pain and diarrhea for 2 weeks. TECHNIQUE: ??CT scan of the abdomen and pelvis performed with intravenous and ??with oral contrast using helical scanning technique with dynamic intravenous contrast injection. Reconstructed coronal and sagittal MPR images reviewed. All images stored on PACS. Automated exposure control was used as a dose optimization technique for this examination. CONTRAST TYPE/DOSE: ?? 100 mL Isovue 370 injected via ??right antecubital COMPARISON: ?? None FINDINGS: ??LOWER CHEST: ??Subpleural right basilar infiltrate versus scarring and atelectasis. ??No pleural effusion. LIVER: ??Hypoattenuation along the falciform ligament as seen with a perfusional anomaly or focal fat GALLBLADDER: ??No stones identified. No wall thickening or inflammatory changes. BILE DUCTS: ??Minimal prominence of the central intrahepatic and extrahepatic biliary duct which is likely physiologic. SPLEEN: ??Calcified granulomas. PANCREAS: ??No peripancreatic fat stranding. ??No pancreatic ductal dilatation. ADRENALS: ??Normal. KIDNEYS/URINARY TRACT: ??There is an exophytic enhancing 2.0 x 1.7 x 1.7 cm renal mass arising off the posterolateral aspect of the left lower kidney. ??There is in 1.8 cm enhancing or high attenuation lesion along the upper pole of the left kidney on axial image 52. ?? There are bilateral low-attenuation lesions involving the kidneys which likely relate to cysts. ??There is a 5 cm lesion within the upper pole of the left kidney which measures above simple fluid attenuation on axial image 57. ??There is no renal collecting system dilatation. ??No urinary tract calculi. ??There is an exophytic lesion within the bladder along the base of the prostate gland on the sagittal image 64 measuring approximately 1.9 cm. GI: ??There is mild colonic wall thickening with hyperenhancement. ?? No evidence of small-bowel obstruction. ??Colonic diverticulosis. ?? The appendix is normal. PERITONEUM: ??No ascites or free air. RETROPERITONEUM: ??Prominent but nonenlarged retroperitoneal lymph nodes which are likely reactive. REPRODUCTIVE: ??Enlarged heterogeneous prostate gland. VASCULATURE: ??Severe atherosclerotic disease of the abdominal aorta. MUSCULOSKELETAL: ??No acute fracture or destructive osseous lesion. ?? Bilateral hip osteoarthritis. ??Advanced multilevel lumbar spondylosis. ??Small fat containing left inguinal hernia. IMPRESSION: ?? 1. ??Mild diffuse colonic wall thickening with mild hyperenhancement. Findings are suspicious for mild infectious or inflammatory colitis. 2. ??2 cm enhancing renal mass along the posterolateral aspect of the left kidney suspicious for renal cell carcinoma. ??Urology consultation is recommended. 3. ??1.8 cm enhancing or high attenuation lesion along the upper pole the left kidney is indeterminate. ??Bilateral renal cysts. ??5 cm lesion within the upper pole the left kidney which measures above simple fluid attenuation which is indeterminate. ??Recommend further evaluation with renal mass protocol MRI. 4. ??Enlarged heterogeneous prostate gland. ??A 1.9 cm exophytic lesion within the bladder along the base of the prostate gland may relate to prostate gland enlargement/BPH, however a bladder neoplasm is not entirely excluded. ??Recommend correlation with cystoscopy. 5. ??Right basilar subpleural infiltrate versus atelectasis or scarring. Findings were called to Dr. Cassius London's office at approximately 8:50 a.m. and 9:35 a.m. but the physician was unavailable, a voice mail was provided with a call-back number. ?? There was no call back after 1 hour so no verbal communication of results was provided to Dr. London. ??However, the report will be available electronically. THIS IS AN ELECTRONICALLY VERIFIED FINAL REPORT 04/25/2020 9:42 AM - Electronically signed by Ko Zaldivar M.D. LEX: LEX D: ??04/25/2020 9:42 AM T: ??04/25/2020 9:42 AM Report ID: [id number] Reading Location: ??[id number] Impressions 04/25/2020 9:45 AM CDT IMPRESSION: ?? 1. ??Mild diffuse colonic wall thickening with mild hyperenhancement. Findings are suspicious for mild infectious or inflammatory colitis. 2. ??2 cm enhancing renal mass along the posterolateral aspect of the left kidney suspicious for renal cell carcinoma. ??Urology consultation is recommended. 3. ??1.8 cm enhancing or high attenuation lesion along the upper pole the left kidney is indeterminate. ??Bilateral renal cysts. ??5 cm lesion within the upper pole the left kidney which measures above simple fluid attenuation which is indeterminate. ??Recommend further evaluation with renal mass protocol MRI. 4. ??Enlarged heterogeneous prostate gland. ??A 1.9 cm exophytic lesion within the bladder along the base of the prostate gland may relate to prostate gland enlargement/BPH, however a bladder neoplasm is not entirely excluded. ??Recommend correlation with cystoscopy. 5. ??Right basilar subpleural infiltrate versus atelectasis or scarring. Findings were called to Dr. Cassius London's office at approximately 8:50 a.m. and 9:35 a.m. but the physician was unavailable, a voice mail was provided with a call-back number. ?? There was no call back after 1 hour so no verbal communication of results was provided to Dr. London. ??However, the report will be available electronically. Narrative 04/25/2020 9:45 AM CDT EXAM DESCRIPTION: ?? CT ABDOMEN PELVIS W/ CONTRAST REASON FOR STUDY: ?? Lower abdominal pain and diarrhea for 2 weeks. TECHNIQUE: ??CT scan of the abdomen and pelvis performed with intravenous and ??with oral contrast using helical scanning technique with dynamic intravenous contrast injection. Reconstructed coronal and sagittal MPR images reviewed. All images stored on PACS. Automated exposure control was used as a dose optimization technique for this examination. CONTRAST TYPE/DOSE: ?? 100 mL Isovue 370 injected via ??right antecubital COMPARISON: ?? None FINDINGS: ??LOWER CHEST: ??Subpleural right basilar infiltrate versus scarring and atelectasis. ??No pleural effusion. LIVER: ??Hypoattenuation along the falciform ligament as seen with a perfusional anomaly or focal fat GALLBLADDER: ??No stones identified. No wall thickening or inflammatory changes. BILE DUCTS: ??Minimal prominence of the central intrahepatic and extrahepatic biliary duct which is likely physiologic. SPLEEN: ??Calcified granulomas. PANCREAS: ??No peripancreatic fat stranding. ??No pancreatic ductal dilatation. ADRENALS: ??Normal. KIDNEYS/URINARY TRACT: ??There is an exophytic enhancing 2.0 x 1.7 x 1.7 cm renal mass arising off the posterolateral aspect of the left lower kidney. ??There is in 1.8 cm enhancing or high attenuation lesion along the upper pole of the left kidney on axial image 52. ?? There are bilateral low-attenuation lesions involving the kidneys which likely relate to cysts. ??There is a 5 cm lesion within the upper pole of the left kidney which measures above simple fluid attenuation on axial image 57. ??There is no renal collecting system dilatation. ??No urinary tract calculi. ??There is an exophytic lesion within the bladder along the base of the prostate gland on the sagittal image 64 measuring approximately 1.9 cm. GI: ??There is mild colonic wall thickening with hyperenhancement. ?? No evidence of small-bowel obstruction. ??Colonic diverticulosis. ?? The appendix is normal. PERITONEUM: ??No ascites or free air. RETROPERITONEUM: ??Prominent but nonenlarged retroperitoneal lymph nodes which are likely reactive. REPRODUCTIVE: ??Enlarged heterogeneous prostate gland. VASCULATURE: ??Severe atherosclerotic disease of the abdominal aorta. MUSCULOSKELETAL: ??No acute fracture or destructive osseous lesion. ?? Bilateral hip osteoarthritis. ??Advanced multilevel lumbar spondylosis. ??Small fat containing left inguinal hernia. THIS IS AN ELECTRONICALLY VERIFIED FINAL REPORT 04/25/2020 9:42 AM - Electronically signed by Ko Zaldivar M.D. LEX: LEX D: ??04/25/2020 9:42 AM T: ??04/25/2020 9:42 AM Report ID: [id number] Reading Location: ??[id number] Procedure Note Ko Zaldivar MD - 04/25/2020 EXAM DESCRIPTION: CT ABDOMEN PELVIS W/ CONTRAST REASON FOR STUDY: Lower abdominal pain and diarrhea for 2 weeks. TECHNIQUE: CT scan of the abdomen and pelvis performed with intravenous and with oral contrast using helical scanning technique with dynamic intravenous contrast injection. Reconstructed coronal and sagittal MPR images reviewed. All images stored on PACS. Automated exposure control was used as a dose optimization technique for this examination. CONTRAST TYPE/DOSE: 100 mL Isovue 370 injected via right antecubital COMPARISON: None FINDINGS: LOWER CHEST: Subpleural right basilar infiltrate versus scarring and atelectasis. No pleural effusion. LIVER: Hypoattenuation along the falciform ligament as seen with a perfusional anomaly or focal fat GALLBLADDER: No stones identified. No wall thickening or inflammatory changes. BILE DUCTS: Minimal prominence of the central intrahepatic and extrahepatic biliary duct which is likely physiologic. SPLEEN: Calcified granulomas. PANCREAS: No peripancreatic fat stranding. No pancreatic ductal dilatation. ADRENALS: Normal. KIDNEYS/URINARY TRACT: There is an exophytic enhancing 2.0 x 1.7 x 1.7 cm renal mass arising off the posterolateral aspect of the left lower kidney. There is in 1.8 cm enhancing or high attenuation lesion along the upper pole of the left kidney on axial image 52. There are bilateral low-attenuation lesions involving the kidneys which likely relate to cysts. There is a 5 cm lesion within the upper pole of the left kidney which measures above simple fluid attenuation on axial image 57. There is no renal collecting system dilatation. No urinary tract calculi. There is an exophytic lesion within the bladder along the base of the prostate gland on the sagittal image 64 measuring approximately 1.9 cm. GI: There is mild colonic wall thickening with hyperenhancement. No evidence of small-bowel obstruction. Colonic diverticulosis. The appendix is normal. PERITONEUM: No ascites or free air. RETROPERITONEUM: Prominent but nonenlarged retroperitoneal lymph nodes which are likely reactive. REPRODUCTIVE: Enlarged heterogeneous prostate gland. VASCULATURE: Severe atherosclerotic disease of the abdominal aorta. MUSCULOSKELETAL: No acute fracture or destructive osseous lesion. Bilateral hip osteoarthritis. Advanced multilevel lumbar spondylosis. Small fat containing left inguinal hernia. THIS IS AN ELECTRONICALLY VERIFIED FINAL REPORT 04/25/2020 9:42 AM - Electronically signed by Ko Zaldivar M.D. LEX: LEX Report ID: [id number] Reading Location: [place] [address] IMPRESSION: 1. Mild diffuse colonic wall thickening with mild hyperenhancement. Findings are suspicious for mild infectious or inflammatory colitis. 2. 2 cm enhancing renal mass along the posterolateral aspect of the left kidney suspicious for renal cell carcinoma. Urology consultation is recommended. 3. 1.8 cm enhancing or high attenuation lesion along the upper pole the left kidney is indeterminate. Bilateral renal cysts. 5 cm lesion within the upper pole the left kidney which measures above simple fluid attenuation which is indeterminate. Recommend further evaluation with renal mass protocol MRI. 4. Enlarged heterogeneous prostate gland. A 1.9 cm exophytic lesion within the bladder along the base of the prostate gland may relate to prostate gland enlargement/BPH, however a bladder neoplasm is not entirely excluded. Recommend correlation with cystoscopy. 5. Right basilar subpleural infiltrate versus atelectasis or scarring. Findings were called to Dr. Cassius London's office at approximately 8:50 a.m. and 9:35 a.m. but the physician was unavailable, a voice mail was provided with a call-back number. There was no call back after 1 hour so no verbal communication of results was provided to Dr. London. However, the report will be available electronically. Cassius London MD IMG CT ORDERABLES Edited Result - Final * (ABNORMAL) POCT Creatinine (04/25/2020 8:06 AM CDT) CREATININE - POCT 1.4(H) 0.6 - 1.3 mg/dL 04/25/2020 8:08 AM CDT [facility] Blood 04/25/2020 8:06 AM CDT 04/25/2020 8:08 AM CDT Cassius London MD POINT OF CARE TESTING Fin al Result Performing Organization Address City/State/[facility] Co de Phone Number [facility] [address] [place] [address] documented in this encounter Visit Diagnoses Diagnosis Lower abdominal pain Abdominal pain, other specified site Diarrhea, unspecified type Chronic kidney disease, stage II (mild) Chronic kidney disease, Stage II (mild) documented in this encounter Administered Medications Inactive Administered Medications - up to 3 most recent administrations Medication Order MAR Action Action Date Dose Rate Site diatrizoate meglumine-sodium (GASTROGRAFIN) 66-10 % solution 15 mL 15 mL, Oral, ONCE, 1 dose, On Thu04/25/20 at 0800 Given 04/25/2020 7:27 AM CDT 15 mL iopamidol (ISOVUE-370) 76 % injection 100 mL 100 mL, Intravenous, ONCE, 1 dose, On Thu04/25/20 at 0800 Given 04/25/2020 8:18 AM CDT 100 mL documented in this encounter Care Teams Business Quality Assurance Analyst Relationship Specialty Start Date End Date Cassius London MD PCP - General Internal Medicine 04/24/20 03/17/23 documented as of this encounter
--- OUTSIDE RECORDS SUMMARY | 2024-10-26 01:14 | XMS_ITS | Encounter Summary ---
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) Procedures US DOPPLER ARTERIAL LOWER EXTREMITY US DUPLEX LOWER EXTREMITY ARTERIES BILATERAL Cassius London MD Phone: tel: fax: Referral ID Status Reason Start Date Expiration Date Visits Re quested Visits Authorized [id number] Closed 05/02/2020 06/03/2020 1 2 Encounter Details Date Type Department Care Team (Late st Contact Info) Description 04/26/2020 Transcribe Orders [facility] Central Scheduling [address] [place] [address] Cassius London MD [address] [place] [address] [address] 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 LEFT NOY: ??Normal. Narrative 05/04/2020 1:01 PM CDT EXAM DESCRIPTION: ?US DOPPLER ARTERIAL LOWER EXTREMITY REASON FOR STUDY: ?? Atherosclerosis of [place] arteries of extremities with intermittent claudication, bilateral legs TECHNIQUE: ??Brachial blood pressure obtained. Pressures obtained of the peripheral vessels at the level of the ankle. ??Ankle brachial indices calculated. COMPARISON: ?? None FINDINGS: ??Segmental pressures on the right are as follows: Brachial Artery: 133 mm Hg Thigh: 147 mm Hg Calf: 155 mm Hg Posterior Tibial Artery: 160 mm Hg Dorsal Pedal Artery: 149 mm Hg NOY is 1.14. Segmental pressures on the left are as follows: Brachial Artery: 140 mm Hg Thigh: 165 mm Hg Calf: 161 mm Hg Posterior Tibial Artery: 162 mm Hg Dorsal Pedal Artery: 151 mm Hg NOY is 1.16. Triphasic waveforms. THIS IS AN ELECTRONICALLY VERIFIED FINAL REPORT 05/04/2020 12:58 PM - Electronically signed by Andrey Ames M.D. CM: CM D: ??05/04/2020 12:58 PM T: ??05/04/2020 12:58 PM Report ID: [id number] Reading Location: ??[id number] Procedure Note Andrey Ames MD - 05/04/2020 EXAM DESCRIPTION: US DOPPLER ARTERIAL LOWER EXTREMITY REASON FOR STUDY: Atherosclerosis of [place] arteries of extremities with intermittent claudication, bilateral legs TECHNIQUE: Brachial blood pressure obtained. Pressures obtained of the peripheral vessels at the level of the ankle. Ankle brachial indices calculated. COMPARISON: None FINDINGS: Segmental pressures on the right are as follows: Brachial Artery: 133 mm Hg Thigh: 147 mm Hg Calf: 155 mm Hg Posterior Tibial Artery: 160 mm Hg Dorsal Pedal Artery: 149 mm Hg NOY is 1.14. Segmental pressures on the left are as follows: Brachial Artery: 140 mm Hg Thigh: 165 mm Hg Calf: 161 mm Hg Posterior Tibial Artery: 162 mm Hg Dorsal Pedal Artery: 151 mm Hg NOY is 1.16. Triphasic waveforms. THIS IS AN ELECTRONICALLY VERIFIED FINAL REPORT 05/04/2020 12:58 PM - Electronically signed by Andrey Ames M.D. CM: CM Report ID: [id number] Reading Location: [id number] IMPRESSION: RIGHT NOY: Normal. LEFT NOY: Normal. Cassius London MD 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
--- OUTSIDE RECORDS SUMMARY | 2024-10-26 01:14 | XMS_ITS ---
Laboratory report Created on: September 30, 2024 CLARITA JUAN : 1940 Sex: Male Author Name VAN WHITING [facility] Unknown PROBLEMS Problems List Code Description C61 RESULTS Laboratory Orders Date Order Code Test 2024-09-26 313404 PROSTATE-SPECIFI C AG Laboratory Results Date LOINC Test Value Unit Reference Range Interpre tation 2024-09-26 2857-1 PROSTATE SPECIFIC AG 2.5 NG/ML 0.0-4.0
--- OUTSIDE RECORDS SUMMARY | 2024-10-26 01:14 | XMS_ITS | Encounter Summary ---
Author Organization [employer] Care Team Providers Care On Site Wastewater Systems Technician Name Role Phone Cassius London MD Primary Care Provider [phone] [phone] Encounter Details Date Type Department Care Team (Latest Contact Info) Description 05/04/2020 Travel Social History Tobacco Use Types Packs/Day Years [...] have Coronavirus / COVID-19? No / Unsure 05/04/2020 7:35 AM CDT documented as of this encounter Plan of Treatment Not on file documented as of this encounter Visit Diagnoses Not on filedocumented in this encounter Care Teams On Site Wastewater Systems Technician Relationship Specialty Start Date End Date Cassius London MD PCP - General Internal Medicine 04/24/20 03/17/23 documented as of this encounter
--- OUTSIDE RECORDS SUMMARY | 2024-10-26 01:14 | XMS_ITS | Clinical Summary ---
Author Organization [facility] Address [address] [place] [address] Phone Care Team Providers Care Acting Instructor Name Role Phone Unavailable Primary Care Provider Unavailabl e Allergies No known active allergies Medications No known medications Social History Tobacco Use Types Packs/Day Years Used Date Smoking Tobacco: Never Assessed Sex and Gender Information Value Date Recorded Sex Assigned at Not on file Legal Sex Male 11:10 PM CDT Gender Identity Not on file Sexual Orientation Not on file Plan of Treatment Health Maintenance Due Date Last Done Comments Hepatitis C Virus (HCV) Screening 1940 TdaP Immunization 1940 Zoster Immunization (1 of 2) 1991 Pneumococcal Immunization (65+ years) (1 of 1 - PCV) 2006 Respiratory Syncytial Virus (RSV) Immunization (Adult) (1 - 1-dose 75+ series) 2016 Influenza Immunization (#1) 2024 08/27/2019 SARS-COV-2 Immunization ( season) 2024 02/13/2022, 09/11/2021, 02/06/2021, Additional history exists Hepatitis B Immunization Aged Out No longer eligible based on patient's age to complete this topic Meningococcal Immunization (ACWY) Aged Out No longer eligible based on patient's age to complete this topic Rotavirus Immunization Aged Out No lo nger eligible based on patient's age to complete this topic Insurance MEDICARE C [employer]
--- OUTSIDE RECORDS SUMMARY | 2024-10-26 01:14 | XMS_ITS | Encounter Summary ---
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) Procedures US DOPPLER ARTERIAL LOWER EXTREMITY US DUPLEX LOWER EXTREMITY ARTERIES BILATERAL Cassius London MD Phone: tel: fax: Referral ID Status Reason Start Date Expiration Date Visits Re quested Visits Authorized [id number] Closed 05/02/2020 06/03/2020 1 2 Reason for Visit * Radiology Services (Routine) - Closed Specialty Diagnoses / Procedures Referred By Contac t Referred To Contact Radiology Diagnoses 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) Procedures US DOPPLER ARTERIAL LOWER EXTREMITY US DUPLEX LOWER EXTREMITY ARTERIES BILATERAL Cassius London MD Phone: tel: fax: Referral ID Status Reason Start Date Expiration Date Visits Re quested Visits Authorized [id number] Closed 05/02/2020 06/03/2020 1 2 Encounter Details Date Type Department Care Team (Late st Contact Info) Description 05/04/2020 7:44 AM CDT - 05/04/2020 11:59 PM CDT Hospital En[facility] Ultrasound [address] [place] [address] Cassius London MD [address] [address] Discharge Disposition: Discharged to home or Selfcare [...] Procedure Name Priority Date/Time Associated Diagnosis Comments US DOPPLER ARTERIAL LOWER EXTREMITY Routine 05/04/2020 8:06 AM CDT 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 LEFT NOY: ??Normal. Narrative 05/04/2020 1:01 PM CDT EXAM DESCRIPTION: ?US DOPPLER ARTERIAL LOWER EXTREMITY REASON FOR STUDY: ?? Atherosclerosis of [place] arteries of extremities with intermittent claudication, bilateral [...] PM T: ??05/04/2020 12:58 PM Report ID: [id number] Reading Location: ??[id number] Procedure Note Andrey mAes MD - 05/04/2020 EXAM DESCRIPTION: US DOPPLER ARTERIAL LOWER EXTREMITY REASON FOR STUDY: Atherosclerosis of [place] arteries of extremities with intermittent claudication, bilateral [...] Andrey Ames M.D. CM: CM Report ID: [id number] Reading Location: [id number] IMPRESSION: RIGHT NOY: Normal. LEFT NOY: Normal. 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
--- OUTSIDE RECORDS SUMMARY | 2024-10-26 01:14 | XMS_ITS ---
Author Organization Unknown ALLERGIES AND ADVERSE REACTIONS No information ASSESSMENT No information CHIEF COMPLAINT No information Vital Signs Bpsitting Date Heartrate Weight Height Spo2 Bmi Time recorded 140/70 [id number] 88 189.4 5,8 94.0 28.78 1316 117/67 [id number] 69 189.4 5,8 93.0 28.78 1239 130/78 [id number] 99 189.4 5,8 91.0 28.78 1240 138/82 [id number] 87 189.4 5,8 91.0 28.78 1514 148/72 [id number] 75 189.4 5,8 95.0 28.78 1646 140/76 [id number] 189.4 5,8 null 28.78 1646 124/86 [id number] 67 189.4 5,8 97.0 28.78 1727 142/82 [id number] 72 189.4 5,8 97.0 28.78 2051 OBJECTIVE DATA No information PHYSICAL EXAMINATION No information TREATMENT PLAN No information PROBLEMS No information RESULTS No information REVIEW OF SYSTEMS No information SUBJECTIVE DATA No information MEDICATIONS No information
--- OUTSIDE RECORDS SUMMARY | 2024-10-26 01:14 | XMS_ITS | Encounter Summary ---
Author Organization [employer] Care Team Providers Care Career Based Intervention Coordinator Name Role Phone Cassius London MD Primary Care Provider [phone] [phone] Encounter Details Date Type Department Care Team (Latest Contact Info) Description 04/25/2020 Travel Social History Tobacco Use Types Packs/Day [...] on filedocumented in this encounter Care Teams Career Based Intervention Coordinator Relationship Specialty Start Date End Date Cassius London MD PCP - General Internal Medicine 04/24/20 03/17/23 documented as of this encounter
--- OUTSIDE RECORDS SUMMARY | 2024-10-26 01:14 | XMS_ITS | Encounter Summary ---
Author Organization [facility] Address [address] [facility] [place] [address] Phone Care Team Providers Care Hydrate Control Tender Name Role Phone Cassius London MD Primary Care Provider [phone] [phone] Reason for Referral * Radiology Services (Urgent) - Closed Specialty Diagnoses / Procedures Referred By Contac t Referred To Contact Radiology Diagnoses Lower abdominal pain Diarrhea, unspecified type Chronic kidney disease, stage II (mild) Procedures CT ABDOMEN PELVIS W/ CONTRAST Cassius London MD Phone: tel: fax: Referral ID Status Reason Start Date Expiration Date Visits Re quested Visits Authorized [id number] Closed 04/24/2020 1 2 Encounter Details Date Type Department Care Team (Late st Contact Info) Description 04/24/2020 Transcribe Orders [facility] Central Scheduling [address] [place] [address] Cassius London MD [address] [place] [address] [address] Lower abdominal pain (Primary Dx); Diarrhea, unspecified type; Chronic kidney disease, stage II (mild) Social History Tobacco Use Types Packs/Day Years Used Date Smoking Tobacco: Never Assessed Sex and Gender Information Value Date Recorded Sex Assigned at Not on file Legal Sex Male 11:10 PM CDT Gender Identity Not on file Sexual Orientation Not on file documented as of this encounter Plan of Treatment Not on file documented as of this encounter Results * CT ABDOMEN PELVIS W/ CONTRAST (04/25/2020 8:19 AM CDT) Anatomical Region Laterality Modality Abdomen N/A Computed Tomogra phy 04/25/2020 9:42 AM CDT Addenda Addendum by Ko Zaldivar MD on 04/25/2020 2:07 PM CDT ADDENDUM: ??This addendum report supersedes the original report dated 04/25/2020 Findings were discussed with Arlette medical office coordinator at Dr. London's office on 04/25/2020 at 2:04 p.m. THIS IS AN ELECTRONICALLY VERIFIED FINAL REPORT 04/25/2020 2:04 PM - Electronically signed by Ko Zaldivar M.D. LEX: LEX D: ??04/25/2020 2:04 PM T: ??04/25/2020 2:04 PM Report ID: [id number] Reading Location: ??[id number] EXAM DESCRIPTION: ?? CT ABDOMEN PELVIS W/ [...] AM T: ??04/25/2020 9:42 AM Report ID: [id number] Reading Location: ??[id number] Impressions 04/25/2020 9:45 AM CDT IMPRESSION: ?? [...] AM T: ??04/25/2020 9:42 AM Report ID: [id number] Reading Location: ??[id number] Procedure Note Ko Zaldivar MD - 04/25/2020 [...] Ko Zaldivar M.D. LEX: LEX Report ID: [id number] Reading Location: [id number] IMPRESSION: 1. Mild diffuse colonic wall thickening [...] IMG CT ORDERABLES Edited Result - Final documented in this encounter Visit Diagnoses Diagnosis Lower abdominal pain- Primary Abdominal pain, other specified site Diarrhea, unspecified type Chronic kidney disease, stage II (mild) Chronic kidney disease, Stage II (mild) Lower abdominal pain Abdominal pain, other specified site Diarrhea, unspecified type Chronic kidney disease, stage II (mild) Chronic kidney disease, Stage II (mild) documented in this encounter Care Teams Hydrate Control Tender Relationship Specialty Start Date End Date Cassius London MD PCP - General Internal Medicine 04/24/20 03/17/23 documented as of this encounter
--- OUTSIDE RECORDS SUMMARY | 2024-10-26 01:14 | XMS_ITS ---
Laboratory report Created on: July 22, 2024 CLARITA JUNA : 1940 Sex: Male Author Name [facility] Unknown PROBLEMS Problems List Code Description C61 RESULTS Laboratory Orders Date Order Code Test 2022-07-09 [id number] PROSTATE-SPECIFI C AG Laboratory Results Date LOINC Test Value Unit Reference Range Interpre tation 2022-07-09 2857-1 PROSTATE SPECIFIC AG 2.7 NG/ML 0.0-4.0
--- OUTSIDE RECORDS SUMMARY | 2024-10-26 01:15 | XMS_ITS | Encounter Summary ---
Author Organization [facility] Address [address] [place] [address] Care Team Providers Care Electronic Warfare Technical Name Role Phone Cassius London MD Primary Care Provider + Encounter Details Date Type Department Care Team (Late st Contact Info) Description 03/11/2024 7:55 AM CDT [address] [address] Social History Tobacco Use Types Packs/Day Years Used Date Smoking Tobacco: Former Cigarettes Q uit: 2012 Smokeless Tobacco: Never Alcohol Use Standard Drinks/Week Comments No 0 (1 standard drink = 0.6 oz pur e alcohol) [facility] Utilities Answer Date Recorded In the past 12 months has e electric, gas, oil, or water company threatened to shut off services in your home? No 01/20/2024 Social Connection and Isolat ion Panel [NHANES] Answer Date Recorded In a typical week, how many times do you talk on the phone with family, friends, or neighbors? More than three times a week 01/20/2024 How often do you get togethe r with friends or relatives? Three times a week 01/20/2024 How often do you attend chur ch or sabianism services? Never 01/20/2024 Do you belong to any clubs o r organizations such as yarsani groups, unions, fraternal or athletic groups, or school groups? No 01/20/2024 How often do you attend meet ings of the clubs or organizations you belong to? Never 01/20/2024 Are you , , di vorced, , never , or living with a partner? 01/20/2024 AUDIT-C Answer Date Recorded Q1: How often do you have a drink containing alc ohol? Monthly or less 01/20/2024 Q2: How many drinks containi ng alcohol do you have on a typical day when you are drinking? 1 or 2 01/20/2024 Q3: How often do you have si x or more drinks on one occasion? Never 01/20/2024 Overall Financial Resource Strain (CARDIA) Answe r Date Recorded How hard is it for you to pa y for the very basics like food, housing, medical care, and heating? Not very hard 01/20/2024 PHQ-2 Answer Date Recorded PHQ-2 Total Score (If total score is 3 or more points, staff should administer the PHQ-9) 0 01/21/2024 Hunger Vital Sign Answer Date Recorded Within the past 12 months, y ou worried that your food would run out before you got the money to buy more. Never true 01/20/20 24 Within the past 12 months, t he food you bought just didn't last and you didn't have money to get more. Never true 01/20/2024 PRAPARE - Transportation Answer Date Re corded In the past 12 months, has l ack of transportation kept you from medical appointments or from getting medications? No 01/07 In the past 12 months, has l ack of transportation kept you from meetings, work, or from getting things needed for daily living? No 01/20/2024 Housing Stability Vital Sign Answer Benjamin e Recorded In the last 12 months, was t here a time when you were not able to pay the mortgage or rent on time? No 01/20/2024 In the last 12 months, how many places have you lived? 1 01/20/2024 In the last 12 months, was t here a time when you did not have a steady place to sleep or slept in a half-way (including now)? No 01/20/2024 Personal Safety Answer Date Recorded Have you ever been in or are you currently in a harmful physical or emotional relationship or is someone making you feel afraid or unsafe? Denies 01/20/2024 Sex and Gender Information Value Date Recorded Sex Assigned at Not on file Legal Sex Male 1:17 PM FIELD SALES SPECIALIST Gender Identity Not on file Sexual Orientation Not on file documented as of this encounter Plan of Treatment Not on file documented as of this encounter Procedures Procedure Name Priority Date/Time Associated Diagnosis Comments CREATININE, WHOLE BLOOD STAT 03/11/2024 8:00 AM CDT documented in this encounter Results * (ABNORMAL) Creatinine, whole blood (03/11/2024 8:00 AM CDT) Creatinine, bld 1.86(H) 0.60 - 1.30 mg/dL Blood 03/11/2024 8:00 AM CDT 03/11/2024 8:07 AM CDT us Sourav Veronica MD LAB BLOOD ORDERABLES nal Result [facility] ([facility]) [facility] Department [place] [address] documented in this encounter Visit Diagnoses Not on filedocumented in this encounter Care Teams Electronic Warfare Technical Relationship Specialty Start Date End Date Cassius London MD [address] [place] [address] PCP - General 02/06/17 documented as of this encounter
--- OUTSIDE RECORDS SUMMARY | 2024-10-26 01:15 | XMS_ITS | Encounter Summary ---
Author Organization [facility] Address [address] [place] [address] Care Team Providers Care Child Care Team Lead Name Role Phone Cassius London MD Primary Care Provider + Encounter Details Date Type Department Care Team (Late st Contact Info) Description 10/12/2024 Telephone [facility] [address] [place] [id number] Roma Lewis Social History Tobacco Use Types Packs/Day Years Used Date Smoking Tobacco: Former Cigarettes Q uit: 2012 Smokeless Tobacco: Never Alcohol Use Standard Drinks/Week Comments No 0 (1 standard drink = 0.6 oz pur e alcohol) [facility] Utilities Answer Date Recorded In the [...] often do you attend chur ch or baptism services? Never 01/20/2024 Do you belong to any clubs o r organizations such as mosque groups, unions, fraternal or athletic groups, or [...] place to sleep or slept in a alf (including now)? No 01/20/2024 Personal Safety Answer Date Recorded Have you ever been in or are you currently in a harmful physical or emotional relationship or is someone making you feel afraid or unsafe? Denies 01/20/2024 Sex and Gender Information Value Date Recorded Sex Assigned at Not on file Legal Sex Male 1:17 PM IT FIELD TECHNICIAN Gender Identity Not on file Sexual Orientation Not on file documented as of this encounter Miscellaneous Notes * Telephone Encounter - Roma Lewis - 10/12/2024 11:27 AM CST LVM FOR PATIENT'S CT APPOINTMENT REMINDER. FIELD TECHNICIAN documented in this encounter Plan of Treatment Not on file documented as of this encounter Visit Diagnoses Not on filedocumented in this encounter Care Teams Child Care Team Lead Relationship Specialty Start Date End Date Cassius London MD [address] [place] [address] PCP - General 02/06/17 documented as of this encounter
--- OUTSIDE RECORDS SUMMARY | 2024-10-26 01:15 | XMS_ITS | Clinical Summary ---
Author Organization [facility] Address [address] [place] [id number] Care Team Providers Care Svp Business Development Name Role Phone Cassius London MD Primary Care Provider + Allergies Active Allergy Reactions Criticality Noted Date Comments Miguel A Inhibitors Cough Reaction: Cough, Acetaminophen Unknown 06/29/2020 Medications albuterol HFA (PROAIR HFA) 90 mcg/actuation inhaler inhale 2 puff by inhalation route every 4 - 6 hours as needed 1 Inhaler 1 09/25/20 15 Active hgllowvy-ffz-i olic-vit K-lycop (ONE-A-DAY MEN'S MULTIVITAMIN) 400-20-300 mcg tablet Take one by mouth one time per day 0 0 08/23/20 08 Active cholecalcifero l (VITAMIN D-3) 5,000 unit tablet Take 1 tablet (5,000 Units total) by mouth daily. 90 tablet 07/29/20 17 Active montelukast (SINGULAIR) 10 mg tablet Take 1 tablet (10 mg total) by mouth nightly 09/09/20 21 Active docusate sodium (Colace) 100 mg capsuleIndicat ions:constipat ion Take 1 capsule (100 mg total) by mouth 2 (two) times a day for 14 days 28 capsule 2 01/25/20 22 Active Additional Information Patient not taking.Reported on 02/26/2023 albuterol 2.5 mg /3 mL (0.083 %) nebulizer solution 06/04/20 23 Active Trelegy Ellipta 200-62.5-25 mcg inhaler 05/06/20 23 Active simvastatin (ZOCOR) 10 mg tablet Take 1 tablet (10 mg total) by mouth nightly Active calcium citrate-vitami n D3 200 mg-3.125 mcg (125 unit) tablet Take 1 tablet by mouth daily Active irbesartan-hyd roCHLOROthiazi de (AVALIDE) 300-12.5 mg per tabletIndicati ons:hypertensi on TAKE 1 TABLET BY MOUTH DAILY 90 tablet 3 03/21/20 24 025 Active metoprolol tartrate (LOPRESSOR) 50 mg immediate release tablet Take 1 tablet (50 mg total) by mouth 2 (two) times a day 60 tablet 11 04/08/20 24 025 Active Eliquis 5 mg tablet TAKE 1 TABLET(5 MG) BY MOUTH EVERY 12 HOURS 180 tablet 3 10/09/20 24 Active apixaban (Eliquis) 5 mg tablet Take 1 tablet (5 mg total) by mouth every 12 (twelve) hours 180 tablet 3 01/05/20 24 024 Discontinued Active Problems Problem Noted Date Diagnosed Date Near syncope 01/19/2024 Numbness and tingling of right hand 12/24/2023 Paroxysmal A-fib ([facility]) 05/26/2023 Congestive heart failure ([facility]) 05/26/2023 CKD (chronic kidney disease) stage 3, GFR 30-59 ml/min 02/26/2023 COPD exacerbation 01/10/2023 Inguinal hernia without obstruction or gangrene 12/19/2021 Assessment & Plan (02/06/2022 10:37 AM CDT): Continue light duty for another 2 weeks. Continue bowel regimen if needed to avoid straining. Diet as tolerates. Patient will call us back with any further questions or concerns. Assessment & Plan (12/19/2021 10:40 AM MARKETING PLANNING MANAGER): I will set the patient up for a robotic assisted left inguinal hernia repair. Risks and benefits have been discussed as well as postoperative restrictions. Preoperative testing will be sent in. Consent to be obtained. All questions answered. 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 Wound care instructions given both verbally and written for. Will return p.r.n. Sebaceous cyst 08/27/2017 Assessment & Plan (08/27/2017 3:09 PM CDT): Plan for excision of epidermoid cyst with local anesthesia by [facility] maintenance 08/12/2017 Medication management 08/12/2017 Diastasis of rectus abdominis 08/12/2017 Umbilical hernia without obstruction and without gangrene 08/12/2017 Former smoker, stopped smoking many years ago Chronic obstructive pulmonar y disease with acute exacerbation 06/05/2014 Overview (02/13/2017): Obstructive chronic bronchitis with exacerbation Elevated prostate specific antigen (PSA) 014 Overview (02/13/2017): Elevated PSA Hyperlipidemia 03/25/2014 Overview (02/12/2017): HYPERLIPIDEMIA NEC/NOS Hypersomnia 03/25/2014 Overview (02/12/2017): Hypersomnolence Vitamin D deficiency 03/25/2014 Overview (02/12/2017): VITAMIN D DEFICIENCY NOS Benign hypertension 03/25/2014 Overview (02/13/2017): BENIGN HYPERTENSION Resolved Problems Problem Noted Date Diagnosed Date Resolved Date Acute pain in right eye 04/29/2017 1002/2017 Assessment & Plan (04/29/2017 12:05 PM CDT): Small corneal abrasion noted to right eye. Recommend Polytrim ophthalmology drops. Recommend close follow-up with parks and recreation manager if he does not the rapid improvement within 1-2 days. He has an parks and recreation manager, Dr. Hernandez. He verbalized understanding and was in agreement with the plan of care. He offered no further complaints. 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/25/2014 08/12/2017 Overview (02/14/2017): TOBACCO USE DISORDER Encounters Date Type Department Care Team Description 10/13/2024 8:15 AM MARKETING PLANNING MANAGER Lab [address] [phone] 10/13/2024 8:10 AM MARKETING PLANNING MANAGER - 10/13/2024 11:59 PM MARKETING PLANNING MANAGER Hospital Encounter [facility] [address] [place] [phone] Cough, unspecified type Discharge Disposition: Discharge to home or self care 10/13/2024 8:10 AM MARKETING PLANNING MANAGER - 10/13/2024 11:59 PM MARKETING PLANNING MANAGER Hospital Encounter [facility] [address] [place] [phone] Abdominal aortic aneurysm (AAA) without rupture, unspecified part (HCC) Discharge Disposition: Discharge to home or self care 10/12/2024 Telephone [facility] [address] [place] [phone] Roma Lewis 09/27/2024 8:36 AM MARKETING PLANNING MANAGER - 09/27/2024 11:59 PM MARKETING PLANNING MANAGER Hospital Encounter [facility] [address] [place] [phone] Spinal stenosis, lumbar region with neurogenic claudication Discharge Disposition: Discharge to home or self care from Last 3 Months Immunizations Name Administration Dates Next Due Influenza, Split 08/09/2010,07/10/2009 Influenza, Trivalent, High D ose, Split, Preservative Free, Intramuscular 08/12/2017,08/06/2016,07/31/2015,09/04 Influenza, Trivalent, IM (MDV) 08/09/2011 Influenza, Unspecified 08/13/2023,08/21/2022 Pneumococcal Conjugate PCV 13 12/04/2014 Pneumococcal Polysaccharide PPV23 03/26/2009 Td, adsorbed 03/26/2009 Tdap 01/30/2017 ZOSTER LIVE 12/04/2014 Surgical History Surgery Date Site/Laterality Comments OTHER SURGICAL HISTORY s/p HNP L spine BACK SURGERY back surgery x 3 BREAST LUMPECTOMY Right Benign / done years ago / COLONOSCOPY 08/12/2016 HERNIA REPAIR Hernia repair HERNIA REPAIR 01/24/2022 Left Medical History Medical History Date Comments Hx Other Medical dyslipidemia Hx Other Medical PAD Hypertension Hypertension Hx Other Medical ED Hx Other Medical -pulmonolgist Asbestosis (CMS/HCC) (HCC) asbes tosis Hx Other Medical v. veins Hx Other Medical prostatism Hx Other Medical diastasis recti Polyp of colon colon polyps Hx Other Medical 2002 diverticular bl eed Hx Other Medical 2012 Prostate biopsy Mixed hyperlipidemia Obstructive chronic bronchit is without exacerbation (HCC) Cancer (CMS/HCC) (HCC) biopsy sh owed small area of prostate cancer Chronic diarrhea PONV (postoperative nausea and vomiting) COPD (chronic obstructive pu lmonary disease) (HCC) Family History Medical History Relation Name Comments Bone cancer Brother 1 Cancer Brother 1 Cancer -; Brain cancer Brother 2 Cancer -brain; Lung cancer Brother 3 Cancer -lung; Other Father hx not provided ; Cancer Mother cancer; Dementia Mother Dementia; Lung cancer Sister 1 Cancer, lung; Brain cancer Sister 2 Relation Name Status Comments Brother 1 Brother 2 Brother 3 Father Mother Sister 1 Alive Sister 2 Social History Tobacco Use Types Packs/Day Years Used Date Smoking Tobacco: Former Cigarettes Q uit: 2012 Smokeless Tobacco: Never Tobacco Cessation:Counseling Given: Not Answered Alcohol Use Standard Drinks/Week Comments No 0 (1 standard drink = 0.6 oz pur e alcohol) [facility] Utilities Answer Date Recorded In the past 12 months has e [employer], gas, oil, or water [employer] threatened to shut off services in your [...] often do you attend chur ch or protestant services? Never 01/20/2024 Do you belong to any clubs o r organizations such as denominational groups, unions, fraternal or athletic groups, or [...] place to sleep or slept in a mcc (including now)? No 01/20/2024 Personal Safety Answer Date Recorded Have you ever been in or are you currently in a harmful physical or emotional relationship or is someone making you feel afraid or unsafe? Denies 01/20/2024 Sex and Gender Information Value Date Recorded Sex Assigned at Not on file Legal Sex Male 1:17 PM MARKETING PLANNING MANAGER Gender Identity Not on file Sexual Orientation Not on file Obstetrics History Last Filed Vital Signs Vital Sign Reading Time Taken Comments Blood Pressure 139/75 01/22/2024 7:00 AM CDT Pulse 72 01/22/2024 7:00 AM CDT Temperature 36.4 ??C (97.6 ??F) 01/22/2024 7:00 AM CD T Respiratory Rate 18 01/22/2024 7:00 AM CDT Oxygen Saturation 97% 01/22/2024 10:35 AM CDT Inhaled Oxygen Concentration - - Weight 87.6 kg (193 lb 3.2 oz) 01/20/2024 1:04 A M CDT Height 170.2 cm (5' 7 ) 01/20/2024 1:04 AM CDT Body Mass Index 30.26 01/20/2024 1:04 AM CDT Plan of Treatment Health Maintenance Due Date Last Done Comments Hepatitis B Screening 1958 Zoster Vaccine (2 of 3) 01/29/2015 12/04/2014 Prostate Cancer Screening-PSA 07/24/2018 07/24/2017 Well Visit 65+ 08/12/2018 08/12/2017 Covid-19 Vaccine (4 - 2023-2 5 season) 2024 09/11/2021, 02/06/2021, 01/09/2021 Influenza Vaccine (#1) 2024 , 08/21/2022, 08/29/2021, Additional history exists Depression Screening 01/18/2025 01/19/2024, 08/12/2017, 04/29/2017 Fall Risk Assessment 01/21/2025 01/22/2024 DTaP/Tdap/Td Vaccine (2 - Td or Tdap) 01/30/2027 01/30/2017, 03/26/2009 Pneumococcal vaccine 65+ Completed 12/04/2014, 03/09 Abdominal Aortic Aneurysm (A AA) Screen Completed 10/13/2024, 10/13/2024, 10/13/2024, Additional history exists Medical Devices Implanted Type Area Repair Miller Device Identifier Shelf Expiration Date Model / Serial / Lot [employer] [id number] Progrip [id number] Self Fixate Flat Sheet Mesh [employer] Pet Latex Free - [id number] Implanted:Qty: 1 on 01/24/2022 by Willie Brown MD at [facility] Left: Abdomen [employer] 06/08/2024 [id number] / / [id number] Procedures Procedure Name Priority Date/Time Associated Diagnosis Comments CT CHEST W CONTRAST Schedule Routine, Read Routine (OP Routine) 10/13/2024 9:28 AM MARKETING PLANNING MANAGER Cough, unspecified type US ABDOMINAL AORTIC ANEURYSM SCREENING Schedule Routine, Read Routine (OP Routine) 10/13/2024 8:51 AM MARKETING PLANNING MANAGER Abdominal aortic aneurysm (AAA) without rupture, unspecified part (HCC) CREATININE, WHOLE BLOOD STAT 10/13/2024 8:17 AM MARKETING PLANNING MANAGER MRI LUMBAR SPINE WO CONTRAST Schedule Routine, Read Routine (OP Routine) 09/27/2024 9:04 AM MARKETING PLANNING MANAGER Spinal stenosis, lumbar region with neurogenic claudication PSA SCREEN Routine 07/24/2017 7:27 AM CDT Routine medical exam from Last 3 Months or Most Recently Relevant to Health Maintenance Results * CT Chest W Contrast (10/13/2024 9:28 AM MARKETING PLANNING MANAGER) Anatomical Region Laterality Modality Body N/A Computed Tomogra phy 10/17/2024 8:29 AM MARKETING PLANNING MANAGER Narrative 10/17/2024 8:45 AM MARKETING PLANNING MANAGER EXAM DESCRIPTION: CT CHEST W CONTRAST REASON FOR STUDY: COUGH, UNSPECIFIED ?? Evaluation for productive cough when lying down x 6 months. Patient denies chest pain or shortness of breath. Hx of COPD. Hx of prostate cancer. Hx of asbestos exposure. ? TECHNIQUE: CT scan of the chest performed with intravenous contrast using helical scanning technique with dynamic intravenous contrast injection. ?? Reconstructed coronal and sagittal MPR images reviewed. All images stored on PACS. ??Automated exposure control was used as a dose optimization technique for this examination. CONTRAST TYPE/DOSE: 75 ML of IOVERSOL 350 MG IODINE/ML INTRAVENOUS SYRINGE ?? injected via ??intravenous COMPARISON: 05/31/[address] FINDINGS: LUNGS: ??Central airways are patent. ??Extensive emphysematous changes redemonstrated. Biapical pleural thickening appears similar to previous and prior exam of 2021. Right upper lobe soft tissue density nodule adjacent to the medial posterior pleural surface on image 31 of series 5 measures 1.1 cm and is unchanged since 2021 suggesting benign process. Right lower lobe interstitial densities along the posterior pleural surface with slight nodularity measuring 0.9 cm on image 85 unchanged from 05/31/2024 but new from 01/16/2022. Left upper lobe pleural-based nodule image 28 measures 1.2 cm and is unchanged since 2021 suggesting benign process. Left upper lobe anterior linear densities extending to the anterior pleural surface suggest developing atelectasis or subtle interstitial inflammatory change. ??New from previous. Left lower lobe pleural-based densities with slight nodularity current image 73 through 78 new from previous likely represent inflammatory change. PLEURA: ??No effusion. No pneumothorax. MEDIASTINUM/KRISTYN: ?? Nonenlarged lymph nodes retrocaval pretracheal space, AP window, subcarinal space and hilar regions with granulomatous calcifications generally similar to previous. Small hiatal hernia. HEART: ??Mildly enlarged. ??Minimal pericardial effusion similar to previous. ?? Coronary arterial calcifications. VASCULATURE: ??No thoracic aortic aneurysm. AXILLA: ??No adenopathy. CHEST WALL: ??No masses. ??No subcutaneous air. HARDWARE/LINES/TUBES: ?? None. UPPER ABDOMEN: ??Partial visualization left renal cortical intermediate density lesion measures 4.6 cm. ??Generally similar to partial visualization 2021 suggesting proteinaceous cyst, likely benign. MUSCULOSKELETAL: ??No significant abnormality. OTHER: ??No other significant abnormality. IMPRESSION: Extensive emphysematous changes of the lungs with biapical pleural thickening similar to prior exam of 2021. Bilateral lung nodules are unchanged since 2021 suggesting benign process. Left upper lobe and left lower lobe pleural-based densities with slight nodularity are new from previous and likely represent inflammatory changes. Partial visualization left renal cortical intermediate density lesion measuring up to 4.6 cm is grossly similar to partial visualization of 202 suggesting a proteinaceous cyst, likely benign. Small hiatal hernia. Nonenlarged mediastinal lymph nodes with granulomatous calcifications generally similar to previous. Consider follow-up CT scan in 3 months to evaluate for change in the lung nodules and pleural-based densities as discussed above. THIS IS AN ELECTRONICALLY VERIFIED FINAL REPORT 10/17/2024 8:45 AM - Electronically signed by ??Eder Bartlett M.D. RB: MCKENZIE D: ??10/17/2024 8:45 AM T: ??10/17/2024 8:45 AM Report ID: [id number] Reading Location: ??[id number] Procedure Note Eder Bartlett MD - 10/17/2024 EXAM DESCRIPTION: CT CHEST W CONTRAST REASON FOR STUDY: COUGH, UNSPECIFIED Evaluation for productive cough when lying down x 6 months. Patient denies chest pain or shortness of breath. Hx of COPD. Hx of prostate cancer. Hxof asbestos exposure. TECHNIQUE: CT scan of the chest performed with intravenous contrast using helical scanning technique with dynamic intravenous contrast injection. Reconstructed coronal and sagittal MPR images reviewed. All images storedon PACS. Automated exposure control was used as a dose optimizationtechnique for this examination. CONTRAST TYPE/DOSE: 75 ML of IOVERSOL 350 MG IODINE/ML INTRAVENOUS SYRINGE injected via intravenous COMPARISON: 05/31/[address] FINDINGS: LUNGS: Central airways are patent. Extensive emphysematous changes redemonstrated. Biapical pleural thickening appears similar to previous and prior exam [id number]. Right upper lobe soft tissue density nodule adjacent to the medialposterior pleural surface on image 31 of series 5 measures 1.1 cm and is unchangedsince 2021 suggesting benign process. Right lower lobe interstitial densities along the posterior pleuralsurface with slight nodularity measuring 0.9 cm on image 85 unchanged from05/31/2024 but new from 01/16/2022. Left upper lobe pleural-based nodule image 28 measures 1.2 cm and isunchanged since 2021 suggesting benign process. Left upper lobe anterior linear densities extending to the anteriorpleural surface suggest developing atelectasis or subtle interstitial inflammatory change. New from previous. Left lower lobe pleural-based densities with slight nodularity currentimage 73 through 78 new from previous likely represent inflammatory change. PLEURA: No effusion. No pneumothorax. MEDIASTINUM/KRISTYN: Nonenlarged lymph nodes retrocaval pretracheal space,AP window, subcarinal space and hilar regions with granulomatouscalcifications generally similar to previous. Small hiatal hernia. HEART: Mildly enlarged. Minimal pericardial effusion similar toprevious. Coronary arterial calcifications. VASCULATURE: No thoracic aortic aneurysm. AXILLA: No adenopathy. CHEST WALL: No masses. No subcutaneous air. HARDWARE/LINES/TUBES: None. UPPER ABDOMEN: Partial visualization left renal cortical intermediatedensity lesion measures 4.6 cm. Generally similar to partial visualization 202 suggesting proteinaceous cyst, likely benign. MUSCULOSKELETAL: No significant abnormality. OTHER: No other significant abnormality. IMPRESSION: Extensive emphysematous changes of the lungs with biapical pleuralthickening similar to prior exam of 2021. Bilateral lung nodules are unchanged since 202 suggesting benignprocess. Left upper lobe and left lower lobe pleural-based densities with slight nodularity are new from previous and likely represent inflammatorychanges. Partial visualization left renal cortical intermediate density lesion measuring up to 4.6 cm is grossly similar to partial visualization of 2022 suggesting a proteinaceous cyst, likely benign. Small hiatal hernia. Nonenlarged mediastinal lymph nodes with granulomatous calcifications generally similar to previous. Consider follow-up CT scan in 3 months to evaluate for change in the lung nodules and pleural-based densities as discussed above. THIS IS AN ELECTRONICALLY VERIFIED FINAL REPORT 10/17/2024 8:45 AM - Electronically signed by Eder Bartlett M.D. RB: MCKENZIE Report ID: [id number] Reading Location: [id number] Cassius London MD IMG CT PROCEDURES Final Result * US Abdominal Aortic Aneurysm Screening (10/13/2024 8:51 AM MARKETING PLANNING MANAGER) Anatomical Region Laterality Modality Abdomen Ultrasound 10/17/2024 8:45 AM MARKETING PLANNING MANAGER Narrative 10/17/2024 8:48 AM MARKETING PLANNING MANAGER EXAM DESCRIPTION: ?? US ABDOMINAL AORTIC ANEURYSM SCREENING REASON FOR STUDY: ?? Abdominal aortic aneurysm, without rupture, unspecified ?? TECHNIQUE: Grayscale images acquired of the aorta and stored on PACS. Selected color Doppler and spectral images recorded. COMPARISON: ?? 06/17/2021 CT FINDINGS: AORTIC CALIBER MAXIMAL PROXIMAL: ??3.2 x 3.1 ??cm. MID: ??3.2 x 3.0 ??cm. DISTAL: ??2.0 x 1.7 ??cm. ILIAC DIAMETER RIGHT: ??Not well visualized ??cm. LEFT: ??1.2 x 1.0 ??cm. OTHER: ??No other significant finding. IMPRESSION: No abdominal aortic aneurysm. Iliac vasculature not well visualized. REFERENCE: Please see below follow up recommendations for abdominal aortic aneurysm surveillance per Society for Vascular Surgery Guidelines: < 2.5 cm No follow up or future screenings necessary 2.52.9 cm Recommended ultrasound follow up every 10 years 3.0-3.9 cm Recommended ultrasound follow up every 3 years 4.0-4.9 cm Recommended ultrasound follow up every 12 months, vascular surgery consult 5.0-5.4 cm Recommended ultrasound follow up every 6 months, vascular surgery consult >= 5.5 cm Referral to vascular surgeon Based upon Society for Vascular Surgery Guidelines: J Vasc Surgery 2008 50: [id number]; updated Nov 2017 J Vasc Surgery 67:277 THIS IS AN ELECTRONICALLY VERIFIED FINAL REPORT 10/17/2024 8:48 AM - Electronically signed by ??Eder Bartlett M.D. RB: MCKENZIE D: ??10/17/2024 8:48 AM T: ??10/17/2024 8:48 AM Report ID: [id number] Reading Location: ??[id number] Procedure Note Eder Bartlett MD - 10/17/2024 EXAM DESCRIPTION: US ABDOMINAL AORTIC ANEURYSM SCREENING REASON FOR STUDY: Abdominal aortic aneurysm, without rupture,unspecified TECHNIQUE: Grayscale images acquired of the aorta and stored on PACS.Selected color Doppler and spectral images recorded. COMPARISON: 06/17/2021 CT FINDINGS: AORTIC CALIBER MAXIMAL PROXIMAL: 3.2 x 3.1 cm. MID: 3.2 x 3.0 cm. DISTAL: 2.0 x 1.7 cm. ILIAC DIAMETER RIGHT: Not well visualized cm. LEFT: 1.2 x 1.0 cm. OTHER: No other significant finding. IMPRESSION: No abdominal aortic aneurysm. Iliac vasculature not well visualized. REFERENCE: Please see below follow up recommendations for abdominal aortic aneurysm surveillance per Society for Vascular Surgery Guidelines: < 2.5 cm No follow up or future screenings necessary 2.52.9 cm Recommended ultrasound follow up every 10 years 3.0-3.9 cm Recommended ultrasound follow up every 3 years 4.0-4.9 cm Recommended ultrasound follow up every 12 months, vascularsurgery consult 5.0-5.4 cm Recommended ultrasound follow up every 6 months, vascularsurgery consult >= 5.5 cm Referral to vascular surgeon Based upon Society for Vascular Surgery Guidelines: J Vasc Surgery 2009Oct 50: [id number]; updated Nov 2017 J Vasc Surgery 67:277 THIS IS AN ELECTRONICALLY VERIFIED FINAL REPORT 10/17/2024 8:48 AM - Electronically signed by Eder Bartlett M.D. RB: MCKENZIE Report ID: [id number] Reading Location: [place] [address] us Cassius London MD IMG US PROCEDURES Final Result * (ABNORMAL) Creatinine, whole blood (10/13/2024 8:17 AM MARKETING PLANNING MANAGER) Creatinine, bld 1.66(H) 0.60 - 1.30 mg/dL Blood 10/13/2024 8:17 AM MARKETING PLANNING MANAGER 10/13/2024 8:26 AM MARKETING PLANNING MANAGER us Cassius London MD LAB BLOOD ORDERABLES Fin al Result [facility] [place] [address] * MRI Lumbar Spine WO Contrast (09/27/2024 9:04 AM MARKETING PLANNING MANAGER) Anatomical Region Laterality Modality Spine N/A Magnetic Resonan ce 09/27/2024 10:2 8 AM MARKETING PLANNING MANAGER Narrative 09/27/2024 10:36 AM MARKETING PLANNING MANAGER EXAM DESCRIPTION: ?? MRI LUMBAR SPINE WO CONTRAST REASON FOR STUDY: Chronic nontraumatic low back pain with bilateral legs numbness. ??No provided history of inciting and/or aggravating events. ??No provided past medical history. ??History of 3 unspecified back surgeries. TECHNIQUE: ??Sagittal and axial imaging of the lumbar spine includes T1, T2, STIR sequences. ?? Images saved to PACS. COMPARISON: ?? MRI lumbar spine without contrast 05/22/2023. FINDINGS: SEGMENTATION: ?? No transitional anatomy. The lowest well-developed disc space is labeled L5-S1. ALIGNMENT: ?? Normal. VERTEBRAE: ?? No MR evidence of acute-subacute fracture. ??Vertebral body heights unchanged. ??Spondylosis. ??Scattered hemangiomas, most prominent T12 vertebral body, and patchy fatty marrow replacement about the osseous architecture. DISC HEIGHT: ?? Multilevel variable intervertebral disc desiccation and loss of intervertebral disc height. HARDWARE: ?? None in the lumbar spine, noting postsurgical changes pursuant to variable laminectomies at L3 through L5. ??Correlate with operative details. CORD/CAUDA: ?? Normal in size and signal intensity with conus medullaris termination at the superior aspect of L1. LOWER THORACIC: ?? Incompletely imaged. ??No stenosis demonstrated. INDIVIDUAL DISC LEVELS: L1-2: ?? Annular disc bulge. ??Bilateral hypertrophic facet arthropathy. ??No spinal canal stenosis. ??No neural foraminal stenosis. L2-3: ?? Mild posterior osteophytosis eccentric to the left with annular disc bulge. ??Bilateral hypertrophic facet arthropathy. ??Ligamentum flavum thickening. ??No spinal canal stenosis. ??Mild inferior left neural foraminal stenosis. L3-4: ?? Annular disc bulge with right subarticular-foraminal junctional disc protrusion. ??Bilateral hypertrophic facet arthropathy. ??Compromise of the right lateral recesses, noting combination of disc and arthropathic facet contact with descending right L4 nerve root. ??No spinal canal stenosis. ?? Moderate-severe proximal right neural foraminal stenosis, noting combination of inferior pedicular surface and disc slight contact with the exiting right L3 nerve root. L4-5: ?? Posterior osteophytosis eccentric to the right with mild annular disc bulge. ??Bilateral hypertrophic facet arthropathy. ??Compromise of the right and slight compromise of the left lateral recesses, noting combination of osteophytosis/disc and arthropathic facet slight contact with descending right and slight arthropathic facet abutment of the descending left L5 nerve roots. ?? No spinal canal stenosis. ??Moderate-severe proximal right neural foraminal stenosis, noting combination of inferior pedicular surface and disc slight contact with exiting right slight disc contact with exiting left L4 nerve roots. L5-S1: ?? Posterior osteophytosis eccentric to the right with mild annular disc bulge. ??Bilateral hypertrophic facet arthropathy. ??Compromise of the left lateral recess, noting combination of osteophytosis/disc and arthropathic facet slight contact with descending left S1 nerve root. ?? No spinal canal stenosis. ??No significant neural foraminal stenosis. SACRUM: ?? Visualized upper sacrum intact. VISUALIZED UPPER ABDOMEN: ?? Poor limited visualization of aneurysmal appearance of the distal descending abdominal aorta. ??Poor partial limited visualization of left renal cystic lesions. OTHER: ?? Sarcopenia manifested as variably robust fatty atrophy of the visualized musculature. IMPRESSION: ?? 1. ?? 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 2. ?? Poor limited visualization of aneurysmal appearance of the distal descending abdominal aorta. ??Ultrasound of the aorta recommended for further evaluation. 3. ?? Poor partial limited visualization of left renal cystic lesions. ?? Correlate with prior renal imaging. ??Otherwise, renal ultrasound can be performed for initial further evaluation. 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 No provided history of inciting and/or aggravating events. No provided past medical history. History of 3 unspecified back surgeries. TECHNIQUE: Sagittal and axial imaging of the lumbar spine includes T1,T2, STIR sequences. Images saved to PACS. COMPARISON: MRI lumbar spine without contrast 05/22/2023. FINDINGS: SEGMENTATION: No transitional anatomy. The lowest well-developed discspace is labeled L5-S1. ALIGNMENT: Normal. VERTEBRAE: No MR evidence of acute-subacute fracture. Vertebral body heights unchanged. Spondylosis. Scattered hemangiomas, most [id number] vertebral body, and patchy fatty marrow replacement about the osseous architecture. DISC HEIGHT: Multilevel variable intervertebral disc desiccation andloss of intervertebral disc height. HARDWARE: None in the lumbar spine, noting postsurgical changes pursuantto variable laminectomies at L3 through L5. Correlate with operativedetails. CORD/CAUDA: Normal in size and signal intensity with conus medullaris termination at the superior aspect of L1. LOWER THORACIC: Incompletely imaged. No stenosis demonstrated. INDIVIDUAL DISC LEVELS: L1-2: Annular disc bulge. Bilateral hypertrophic facet arthropathy. No spinal canal stenosis. No neural foraminal stenosis. L2-3: Mild posterior osteophytosis eccentric to the left with annulardisc bulge. Bilateral hypertrophic facet arthropathy. Ligamentum flavum thickening. No spinal canal stenosis. Mild inferior left neuralforaminal stenosis. L3-4: Annular disc bulge with right subarticular-foraminal junctionaldisc protrusion. Bilateral hypertrophic facet arthropathy. Compromise of the right lateral recesses, noting combination of disc and arthropathic facet contact with descending right L4 nerve root. No spinal canal stenosis. Moderate-severe proximal right neural foraminal stenosis, notingcombination of inferior pedicular surface and disc slight contact with the exitingright L3 nerve root. L4-5: Posterior osteophytosis eccentric to the right with mild annulardisc bulge. Bilateral hypertrophic facet arthropathy. Compromise of the rightand slight compromise of the left lateral recesses, noting combination of osteophytosis/disc and arthropathic facet slight contact with descendingright and slight arthropathic facet abutment of the descending left L5 nerveroots. No spinal canal stenosis. Moderate-severe proximal right neural foraminal stenosis, noting combination of inferior pedicular surface and disc slight contact with exiting right slight disc contact with exiting left L4 nerve roots. L5-S1: Posterior osteophytosis eccentric to the right with mild annulardisc bulge. Bilateral hypertrophic facet arthropathy. Compromise of the left lateral recess, noting combination of osteophytosis/disc and arthropathic facet slight contact with descending left S1 nerve root. No spinal canal stenosis. No significant neural foraminal stenosis. SACRUM: Visualized upper sacrum intact. VISUALIZED UPPER ABDOMEN: Poor limited visualization of aneurysmal appearance of the distal descending abdominal aorta. Poor partial limited visualization of left renal cystic lesions. OTHER: Sarcopenia manifested as variably robust fatty atrophy of the visualized musculature. IMPRESSION: 1. 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 2. Poor limited visualization of aneurysmal appearance of the distal descending abdominal aorta. Ultrasound of the aorta recommended forfurther evaluation. 3. Poor partial limited visualization of left renal cystic lesions. Correlate with prior renal imaging. Otherwise, renal ultrasound can be performed for initial further evaluation. THIS IS AN ELECTRONICALLY VERIFIED FINAL REPORT 09/27/2024 10:36 AM - Electronically signed by Lino Garcia M.D. DIXON: DIXON Report ID: [id number] Reading Location: [place] [address] Cassius London MD IMG MRI PROCEDURES Final Result * PSA screen (07/24/2017 7:27 AM CDT) PSA-Total 2.61 0.10 - 4.00 ng/mL NNEKA CARDENAS Blood specimen (specimen) 07/24/2017 7:27 AM CDT 07/24/2017 5:25 PM CDT Cassius London MD LAB BLOOD ORDERABLES Fin al Result NNEKA CARDENAS [id number] [place] [address] from Last 3 Months or Most Recently Relevant to Health Maintenance Insurance [employer] MEDICARE HMO HU[employer] MEDICARE HMO HU[employer] MEDICARE HMO Advance Directives For more information, please contact: [phone] * Full Code (Latest Code Status on File) Date Activated Date Inactivated Comments 01/20/2024 1:30 AM 01/22/2024 7:13 PM * Full Code Date Activated Date Inactivated Comments 01/11/2023 4:09 AM 01/15/2023 4:08 PM * Full Code Date Activated Date Inactivated Comments 05/29/2020 6:57 AM 05/29/2020 12:54 PM * Full Code Date Activated Date Inactivated Comments 05/29/2020 6:57 AM 05/29/2020 6:57 AM Care Teams [employer]vp Business [employer] Relationship Specialty Start Date End Date Cassius London MD [address] [place] [address] PCP - General 02/06/17
--- OUTSIDE RECORDS SUMMARY | 2024-10-26 01:15 | XMS_ITS | Encounter Summary ---
Author Organization [facility] Healthcare Address [address] [place] [address] Care Team Providers Care Photography Instructor Name Role Phone Cassius London MD Primary Care Provider + Reason for Referral * MRI/CAT/PET Scan (Routine) - Closed Specialty Diagnoses / Procedures Referred By Alejandroac t Referred To Contact Radiology Diagnoses Cough, unspecified type Procedures CT Chest W Contrast Cassius London MD [address] [place] [address] [place] [address] Phone: tel: fax: [address] [phone] Referral ID Status Reason Start Date Expiration Date Visits Re quested Visits Authorized [id number] Closed 10/13/2024 12/12/2024 1 1 [employer] Reason for Visit * MRI/CAT/PET Scan (Routine) - Closed Specialty Diagnoses / Procedures Referred By Contac t Referred To Contact Radiology Diagnoses Cough, unspecified type Procedures CT Chest W Contrast Cassius London MD [address] [place] [address] [place] [address] Phone: tel: fax: [address] [phone] Referral ID Status Reason Start Date Expiration Date Visits Re quested Visits Authorized [id number] Closed 10/13/2024 12/12/2024 1 1 Encounter Details Date Type Department Care Team (Latest Contact Info) Description 10/13/2024 8:10 AM [employer] - 10/13/2024 11:59 PM [employer] Hospital Encounter [facility] [address] [place] [address] Cough, unspecified type Discharge Disposition: Discharge to home or self care Social History Tobacco Use Types Packs/Day Years Used Date Smoking Tobacco: Former Cigarettes Q uit: 2011 Smokeless Tobacco: Never Alcohol Use Standard Drinks/Week Comments No 0 (1 standard drink = 0.6 oz pur e alcohol) [facility] Utilities Answer Date Recorded In the past 12 months has th e [employer], gas, oil, or water [employer] threatened to shut off services in your [...] week 01/20/2024 How often do you attend [facility] or shinto services? Never 01/20/2024 Do you belong to any clubs o r organizations such as mandaeism groups, unions, fraternal or athletic groups, or [...] place to sleep or slept in a assisted (including now)? No 01/20/2024 Personal Safety Answer Date Recorded Have you ever been in or are you currently in a harmful physical or emotional relationship or is someone making you feel afraid or unsafe? Denies 01/20/2024 Sex and Gender Information Value Date Recorded Sex Assigned at Not on file Legal Sex Male 1:17 PM [employer] Gender Identity Not on file Sexual Orientation Not on file documented as of this encounter Medications at Time of Discharge albuterol 2.5 mg /3 mL (0.083 %) nebulizer solution 06/04/2023 albuterol HFA (PROAIR HFA) 90 mcg/actuation inhaler inhale 2 puff by inhalation route every 4 - 6 hours as needed 1 Inhaler 1 09/25/2015 calcium citrate-vitamin D3 200 mg-3.125 mcg (125 unit) tablet Take 1 tablet by mouth daily cholecalciferol (VITAMIN D-3) 5,000 unit tablet Take 1 tablet (5,000 Units total) by mouth daily. 90 tablet 07/29/2017 Eliquis 5 mg tablet TAKE 1 TABLET(5 MG) BY MOUTH EVERY 12 HOURS 180 tablet 3 10/09/2024 irbesartan-hydro CHLOROthiazide (AVALIDE) 300-12.5 mg per tabletIndication s:hypertension TAKE 1 TABLET BY MOUTH DAILY 90 tablet 3 03/21/2024 metoprolol tartrate (LOPRESSOR) 50 mg immediate release tablet Take 1 tablet (50 mg total) by mouth 2 (two) times a day 60 tablet 11 04/08/2024 montelukast (SINGULAIR) 10 mg tablet Take 1 tablet (10 mg total) by mouth nightly 09/09/2021 mzhatqdx-kdz-rdd ic-vit K-lycop (ONE-A-DAY MEN'S MULTIVITAMIN) 400-20-300 mcg tablet Take one by mouth one time per day 0 0 08/23/2008 simvastatin (ZOCOR) 10 mg tablet Take 1 tablet (10 mg total) by mouth nightly Trelegy Ellipta 200-62.5-25 mcg inhaler 05/06/2023 documented as of this encounter Discharge Disposition Disposition Code Departure Means Destination Discharge to home or self care documented in this encounter Plan of Treatment Not on file documented as of this encounter Procedures Procedure Name Priority Date/Time Associated Diagnosis Comments CT CHEST W CONTRAST Schedule Routine, Read Routine (OP Routine) 10/13/2024 9:28 AM [employer] Cough, unspecified type documented in this encounter Results * CT Chest W Contrast (10/13/2024 9:28 AM [employer]) Anatomical Region Laterality Modality Body N/A Computed Tomogra phy 10/17/2024 8:29 AM [employer] Narrative 10/17/2024 8:45 AM [employer] EXAM DESCRIPTION: CT CHEST W CONTRAST REASON [...] measures 1.1 cm and is unchanged since 202 suggesting benign process. Right lower lobe interstitial [...] 4.6 cm. ??Generally similar to partial visualization 2022 suggesting proteinaceous cyst, likely benign. MUSCULOSKELETAL: ??No [...] AM T: ??10/17/2024 8:45 AM Report ID: [id number] Reading Location: ??[id number] Procedure Note Eedr Bartlett MD - 10/17/2024 EXAM DESCRIPTION: CT [...] appears similar to previous and prior exam [id number]. Right upper lobe soft tissue density nodule [...] 4.6 cm. Generally similar to partial visualization 2021 suggesting proteinaceous cyst, likely benign. MUSCULOSKELETAL: No significant abnormality. OTHER: No other significant abnormality. IMPRESSION: Extensive emphysematous changes of the lungs with biapical pleuralthickening similar to prior exam of 2021. Bilateral lung nodules are unchanged since 2021 suggesting benignprocess. Left upper lobe and left [...] Eder Bartlett M.D. RB: MCKENZIE Report ID: [id number] Reading Location: [place] [address] Cassius London MD [facility] [place] PROCEDURES Final Result documented in this encounter Visit Diagnoses Diagnosis Cough, unspecified type documented in this encounter Administered Medications Inactive Administered Medications - up to 3 most recent administrations Medication Order MAR Action Action Date Dose Rate Site ioversoL (OPTIRAY 350) syringe 75 mL 75 mL, intravenous, Once in imaging, contrast, Starting on Liv 10/13/24 at 0922, For 1 dose Contrast Given 10/13/2024 9:23 AM [employer] 75 mL documented in this encounter Orders Medications Ordered That Clint ht Not Have Been Administered Count Last Ordered Date First Ordered Date ioversoL (OPTIRAY 350) syringe 75 mL 1 03/2024 documented in this encounter Care Teams Photography Instructor Relationship Specialty Start Date End Date Cassius London MD [address] [place] [address] PCP - General 02/06/17 documented as of this encounter
--- OUTSIDE RECORDS SUMMARY | 2024-10-26 01:15 | XMS_ITS | Encounter Summary ---
Author Organization [facility] Healthcare Address [address] [place] [address] Care Team Providers Care Aluminum Siding Mechanic Name Role Phone Cassius [place] MD Primary Care Provider + Reason for Referral * Neurology (Routine) - Pending Review Specialty Diagnoses / Procedures Referred By Contac t Referred To Contact Diagnoses Palmar fascial fibromatosis Procedures EMG/NCV - Cassius [place] MD [address] [place] [address] [place] [address] Phone: tel: fax: [address] [phone] Referral ID Status Reason Start Date Expiration Date V isits Requested Visits Authorized [id number] Pending Review 11/10/2023 12/09/2024 1 1 OM SAW OPERATOR Reason for Visit * Neurology (Routine) - Pending Review Specialty Diagnoses / Procedures Referred By Contac t Referred To Contact Diagnoses Palmar fascial fibromatosis Procedures EMG/NCV - Cassius [place] MD [address] [place] [address] [place] [address] Phone: tel: fax: [address] [phone] Referral ID Status Reason Start Date Expiration Date V isits Requested Visits Authorized [id number] Pending Review 11/10/2023 12/09/2024 1 1 Encounter Details Date Type Department Care Team (Latest Contact Info) Description 12/24/2023 10:17 AM BOTTOM SAW OPERATOR - 12/24/2023 11:59 PM BOTTOM SAW OPERATOR Hospital Encounter [facility] Neurological Disorders Testing [address] [id number] Numbness and tingling of right hand [R20.0, R20.2] (Primary Dx); Palmar fascial fibromatosis Discharge Disposition: Discharge to home or self care Social History Tobacco Use Types Packs/Day Years Used Date Smoking Tobacco: Former Cigarettes Q uit: 2012 Smokeless Tobacco: Never Alcohol Use Standard Drinks/Week Comments No 0 (1 standard drink = 0.6 oz pur e alcohol) Social Connection and Isolat ion Panel [NHANES] Answer Date Recorded In a typical week, how many times do you talk on the phone with family, friends, or neighbors? More than three times a week 01/12/2023 How often do you get togethe r with friends or relatives? Three times a week 01/12/2023 How often do you attend chur or mosque services? Never 01/12/2023 Do you belong to any clubs o r organizations such as oriental orthodox groups, unions, fraternal or athletic groups, or school groups? No 01/12/2023 How often do you attend meet ings of the clubs or organizations you belong to? Never 01/12/2023 Are you , , di vorced, , never , or living with a partner? 01/12/2023 AUDIT-C Answer Date Recorded Q1: How often do you have a drink containing alc ohol? Never 01/24/2022 Average Number of Drinks Not on file 022 Frequency of Binge Drinking Not on file 01/07 Overall Financial Resource Strain (CARDIA) Answe r Date Recorded How hard is it for you to pa y for the very basics like food, housing, medical care, and heating? Not very hard 01/12/2023 Hunger Vital Sign Answer Date Recorded Within the past 12 months, y ou worried that your food would run out before you got the money to buy more. Never true 01/13/20 23 Within the past 12 months, t he food you bought just didn't last and you didn't have money to get more. Never true 01/12/2023 PRAPARE - Transportation Answer Date Re corded In the past 12 months, has l ack of transportation kept you from medical appointments or from getting medications? No 04/2023 In the past 12 months, has l ack of transportation kept you from meetings, work, or from getting things needed for daily living? No 01/12/2023 Housing Stability Vital Sign Answer Benjamin e Recorded In the last 12 months, was t here a time when you were not able to pay the mortgage or rent on time? No 01/12/2023 In the last 12 months, how many places have you lived? 1 01/12/2023 In the last 12 months, was t here a time when you did not have a steady place to sleep or slept in a senior living (including now)? No 01/12/2023 Personal Safety Answer Date Recorded Getting School Help Needed Denies 11/10 Sex and Gender Information Value Date Recorded Sex Assigned at Not on file Legal Sex Male 1:17 PM BOTTOM SAW OPERATOR Gender Identity Not on file Sexual Orientation [...] total) by mouth daily. 90 tablet 07/29/2017 montelukast (SINGULAIR) 10 mg tablet Take 1 tablet (10 mg total) by mouth nightly 09/09/2021 dhprmmcu-lvt-topco -vit K-lycop (ONE-A-DAY MEN'S MULTIVITAMIN) 400-20-300 mcg tablet Take one by mouth one time per day 0 0 08/23/2008 simvastatin (ZOCOR) 10 mg tablet Take 1 tablet (10 mg total) by mouth nightly Trelegy Ellipta 200-62.5-25 mcg inhaler 05/06/2023 amLODIPine (NORVASC) 5 mg tablet 06/08/2023 4 apixaban (ELIQUIS) 5 mg tabletIndications: atrial fibrillation Take 1 tablet (5 mg total) by mouth every 12 (twelve) hours 180 tablet 3 05/28/2023 4 aspirin 81 mg enteric coated tablet Take 1 tablet (81 mg total) by mouth daily 4 fluticasone propionate (FLONASE) 50 mcg/actuation nasal spray Administer 50 sprays into each nostril 2 (two) times a day as needed 02/05/2022 4 irbesartan-hydroCH LOROthiazide (AVALIDE) 300-12.5 mg per tabletIndications: hypertension Take 1 tablet by mouth daily 90 tablet 3 02/26/2023 4 meclizine (ANTIVERT) 12.5 mg tablet Take 1 tablet (12.5 mg total) by mouth 3 (three) times a day as needed for dizziness 30 tablet 01/18/2022 4 metoprolol tartrate (LOPRESSOR) 25 mg immediate release tablet Take 1 tablet (25 mg total) by mouth 2 (two) times a day 60 tablet 11 01/15/2023 4 ondansetron (ZOFRAN) 4 mg tablet Take 1 tablet (4 mg total) by mouth every 6 (six) hours 12 tablet 01/18/2022 4 tamsulosin (FLOMAX) 0.4 mg capsule,extended release 24hr take 1 capsule by oral route every day 1/2 hour following the same meal each day 0 0 08/06/2016 4 traMADoL (ULTRAM) 50 mg tablet Take 0.5 tablets (25 mg total) by mouth every 6 (six) hours as needed for pain 25 tablet 01/24/2022 4 documented as of this encounter Discharge Disposition Disposition Code Departure Means Destination Discharge to home or self care documented in this encounter Procedure Notes * Hector Sorensen MD - 12/24/2023 10:30 AM CST Procedures History: This is a 83 years old patient with history of tingling and numbness of right hand. Nerve conduction studies: Right median motor nerve conduction study showed slightly prolonged DML, normal CMAP amplitude, normal motor nerve conduction velocity and normal F wave latency. Right ulnar motor nerve conduction study showed normal DML, normal CMAP amplitude, normal motor nerve conduction velocity and normal F wave latency. Right radial antidromic sensory nerve conduction study showed normal SNAP peak latency, normal amplitude and normal sensory nerve conduction velocity. Right median orthodromic sensory nerve conduction study showed slightly prolonged SNAP peak latency, normal amplitude and slow sensory nerve conduction velocity. Right ulnar orthodromic sensory nerve conduction study showed normal SNAP peak latency, normal amplitude and normal sensory nerve conduction velocity. Right median and right radial SNAP peak latency comparison study using ring electrodes showed SNAP peak latency 2.0 ms for right radial nerve and 4.5 ms for right median nerve. EMG studies: The concentric needle electrode examination was performed on right FDI, APB, flexor carpi radialis,biceps and deltoid. There was no evidence of acute or chronic denervation or reinnervation. The interference pattern is full in all muscle tested. Impression: This is an abnormal study. There was electrophysiologic evidence suggestive of: 1. 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 The needle EMG study of right upper extremity did not show any ongoing denervation. The clinical correlation is recommended. OM SAW OPERATOR documented in this encounter Plan of Treatment Not on file documented as of this encounter Procedures Procedure Name Priority Date/Time Associated Diagnosis Comments EMG/NCV Routine 12/24/2023 11:27 AM BOTTOM SAW OPERATOR Palmar fascial fibromatosis documented in this encounter Results * EMG/NCV - (12/24/2023 11:27 AM BOTTOM SAW OPERATOR) Anatomical Region Laterality Modality EMG, EMG Impressions 12/24/2023 11:27 AM BOTTOM SAW OPERATOR History: This is a 83 years old patient with history of tingling and numbness of right hand. Nerve conduction studies: Right median motor nerve conduction study showed slightly prolonged DML, normal CMAP amplitude, normal motor nerve conduction velocity and normal F wave latency. ??Right ulnar motor nerve conduction study showed normal DML, normal CMAP amplitude, normal motor nerve conduction velocity and normal F wave latency. ??Right radial antidromic sensory nerve conduction study showed normal SNAP peak latency, normal amplitude and normal sensory nerve conduction velocity. ??Right median orthodromic sensory nerve conduction study showed slightly prolonged SNAP peak latency, normal amplitude and slow sensory nerve conduction velocity. ??Right ulnar orthodromic sensory nerve conduction study showed normal SNAP peak latency, normal amplitude and normal sensory nerve conduction velocity. ??Right median and right radial SNAP peak latency comparison study using ring electrodes showed SNAP peak latency 2.0 ms for right radial nerve and 4.5 ms for right median nerve. EMG studies: The concentric needle electrode examination was performed on right FDI, APB, flexor carpi radialis, biceps and deltoid. ??There was no evidence of acute or chronic denervation or reinnervation. ??The interference pattern is full in all muscle tested. Impression: This is an abnormal study. ??There was electrophysiologic evidence suggestive of: 1. 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 The needle EMG study of right upper extremity did not show any ongoing denervation. The clinical correlation is recommended. 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
--- OUTSIDE RECORDS SUMMARY | 2024-10-26 01:15 | XMS_ITS | Encounter Summary ---
Author Organization [facility] Healthcare Address [address] [place] [address] Care Team Providers Care Custom Decorating Consultant Name Role Phone Cassius [place] MD Primary Care Provider + Encounter Details Date Type Department Care Team (Late st Contact Info) Description 03/22/2024 Telephone [facility] at [address] [place] [phone] Evelyn Briceno MA Social History Tobacco Use Types Packs/Day Years Used Date Smoking Tobacco: Former Cigarettes Q uit: 2012 Smokeless Tobacco: Never Alcohol Use Standard Drinks/Week Comments No 0 (1 standard drink = 0.6 oz pur e alcohol) [facility] Utilities Answer Date Recorded In the past 12 months has [employer], gas, oil, or water company threatened [...] often do you attend chur ch or gnosticism services? Never 01/20/2024 Do you belong to any clubs o r organizations such as spiritism groups, unions, fraternal or athletic groups, or [...] place to sleep or slept in a correction (including now)? No 01/20/2024 Personal Safety Answer Date Recorded Have you ever been in or are you currently in a harmful physical or emotional relationship or is someone making you feel afraid or unsafe? Denies 01/20/2024 Sex and Gender Information Value Date Recorded Sex Assigned at Not on file Legal Sex Male 1:17 PM LAW PROFESSOR Gender Identity Not on file Sexual Orientation Not on file documented as of this encounter Miscellaneous Notes * Telephone Encounter - Evelyn Briceno MA - 03/23/2024 11:03 AM CDT Relayed message to patient. * Telephone Encounter - Evelyn Briceno MA - 03/22/2024 1:03 PM CDT Patient had a finished his Event Monitor on 02/01/24 and has not been informed of any results as of yet. He usually sees Bg Miller, but since he is on vacation I am sending to you. Please advise documented in this encounter Plan of Treatment Not on file documented as of this encounter Visit Diagnoses Not on filedocumented in this encounter Care Teams Custom Decorating Consultant Relationship Specialty Start Date End Date Cassius [place] MD [address] [address] PCP - General 02/06/17 documented as of this encounter
--- OUTSIDE RECORDS SUMMARY | 2024-10-26 01:15 | XMS_ITS | Encounter Summary ---
Author Organization [facility] Address [address] [place] [address] Care Team Providers Care Project Development Director Name Role Phone Cassius [place] MD Primary Care Provider + Reason for Referral * Cardiology (Routine) - Closed Specialty Diagnoses / Procedures Referred By Contac t Referred To Contact Diagnoses Near syncope Procedures MCT Mobile Cardiac Telemetry Event Monitor Event Monitor Kesha Roque NP [address] [place] [address] Phone: tel: [address] [phone] Referral ID Status Reason Start Date Expiration Date Visits Re quested Visits Authorized [id number] Closed 02/01/2024 03/03/2024 1 1 Reason for Visit * Cardiology (Routine) - Closed Specialty Diagnoses / Procedures Referred By Contac t Referred To Contact Diagnoses Near syncope Procedures MCT Mobile Cardiac Telemetry Event Monitor Event Monitor Kesha Roque, RUSSEL [address] [place] [address] Phone: tel: [address] [phone] Referral ID Status Reason Start Date Expiration Date Visits Re quested Visits Authorized [id number] Closed 02/01/2024 03/03/2024 1 1 Encounter Details Date Type Department Care Team (Latest Contact Info) Description 02/01/2024 2:15 PM CDT - 02/01/2024 11:59 PM CDT Hospital Encounter [facility] Cardiology [address] [place] [id number] Near syncope Discharge Disposition: Discharge to home or self care Social History Tobacco Use Types Packs/Day Years Used Date Smoking Tobacco: Former Cigarettes Q uit: 2011 Smokeless Tobacco: Never Alcohol Use Standard Drinks/Week Comments No 0 (1 standard drink = 0.6 oz pur e alcohol) [facility] Utilities Answer Date Recorded In the [...] often do you attend chur ch or druze services? Never 01/20/2024 Do you belong to any clubs o r organizations such as latter day groups, unions, fraternal or athletic groups, or [...] place to sleep or slept in a [place] (including now)? No 01/20/2024 Personal Safety Answer Date Recorded Have you ever been in or are you currently in a harmful physical or emotional relationship or is someone making you feel afraid or unsafe? Denies 01/20/2024 Sex and Gender Information Value Date Recorded Sex Assigned at Not on file Legal Sex Male 1:17 PM HOSPITALIST Gender Identity Not on file Sexual Orientation [...] (10 mg total) by mouth nightly 09/09/2021 gsebatty-jsh-wmd ic-vit K-lycop (ONE-A-DAY MEN'S MULTIVITAMIN) 400-20-300 mcg tablet Take one by mouth one time per day 0 0 08/23/2008 simvastatin (ZOCOR) 10 mg tablet Take 1 tablet (10 mg total) by mouth nightly Trelegy Ellipta 200-62.5-25 mcg inhaler 05/06/2023 apixaban (Eliquis) 5 mg tablet Take 1 tablet (5 mg total) by mouth every 12 (twelve) hours 180 tablet 3 01/05/2024 4 irbesartan-hydro CHLOROthiazide (AVALIDE) 300-12.5 mg per tabletIndication s:hypertension Take 1 tablet by mouth daily 90 tablet 3 02/26/2023 4 metoprolol tartrate (LOPRESSOR) 50 mg immediate release tablet Take 1 tablet (50 mg total) by mouth 2 (two) times a day 60 tablet 1 01/22/2024 4 documented as of this encounter Discharge Disposition Disposition Code Departure Means Destination Discharge to home or self care documented in this encounter Plan of Treatment Not on file documented as of this encounter Procedures Procedure Name Priority Date/Time Associated Diagnosis Comments MCT - MOBILE CARDIAC TELEMETRY EVENT MONITOR Routine 02/01/2024 2:28 PM CDT Near syncope documented in this encounter Results * MCT Mobile Cardiac Telemetry Event Monitor (02/01/2024 2:28 PM CDT) Anatomical Region Laterality Modality Electrocardiogra phy 02/01/2024 2:30 PM CDT Narrative 03/09/2024 3:35 PM CDT [address] [address] EVENT MONITOR Patient Name: CLARITA JUAN L : 1940 Study Date: 02/01/2024 2:30:00 PM Gender: M Tech: ??Ref Provider: KESHA ROQUE Height(Cm): ??BSA: Weight(Kg): ? Order Provider: KESHA ROQUE - PROCEDURES: Event Report: Event Monitor Report. INDICATIONS: Palpitations R00.2. FINDINGS: CONCLUSIONS: 1. Patient had event monitor for 28 days and 1 hours Baseline rhythm was sinus rhythm and average heart rate 76 bpm Minimum hear rate 51 bpm and maximum heart rate 139 bpm There were ventricular ectopic beast (1%) and supraventricular ectopic beats (1%) There were no pauses more than 3 seconds and no episodes of atrial fibrillation there was 1 episode of nonsustained ventricular tachycardia for 8 beats. There were 0 patient triggered events. Electronically Signed By: Raffy Oneil 2024-03-09 15:35:13 CDT Procedure Note Raffy Oneil MD - 03/09/2024 [address] [place] [address] EVENT MONITOR Patient Name: CLARITA JUAN L : 1940 Study Date: 02/01/2024 2:30:00 PM Gender: M Tech: Ref Provider: KESHA ROQUE Height(Cm): BSA: Weight(Kg): Order Provider: KESHA ROQUE - PROCEDURES: Event Report: Event Monitor Report. INDICATIONS: Palpitations R00.2. FINDINGS: CONCLUSIONS: 1. Patient had event monitor for 28 days and 1 hours Baseline rhythm was sinus rhythm and average heart rate 76 bpm Minimum hear rate 51 bpm and maximum heart rate 139 bpm There were ventricular ectopic beast (1%) and supraventricular ectopicbeats (1%) There were no pauses more than 3 seconds and no episodes of atrialfibrillation there was 1 episode of nonsustained ventricular tachycardia for 8 beats. There were 0 patient triggered events. Electronically Signed By: Raffy Oneil 2024-03-09 15:35:13 CDT us Kesha Roque KITCHEN AND COUNTER WORKER CV CARDIAC SERVICES PROCEDUR ES Final Result documented in this encounter Visit Diagnoses Diagnosis Near syncope documented in this encounter Care Teams Project Development Director Relationship Specialty Start Date End Date Cassius [place] MD [address] [place] [address] PCP - General 02/06/17 documented as of this encounter
--- OUTSIDE RECORDS SUMMARY | 2024-10-26 01:15 | XMS_ITS | Encounter Summary ---
Author Organization [facility] Healthcare Address [address] [place] [address] Care Team Providers Care Button Puncher Name Role Phone Cassius London MD Primary Care Provider + Reason for Visit * Reason Comments Atrial Fibrillation Encounter Details Date Type Department Care Team ([facility] st Contact Info) Description 2023 10:45 AM FRAME CHANGER Office Visit Garber Classification Officer at [address] [phone] Bg Miller NP [address] [place] [address] [address] [place] [address] Paroxysmal A-fib (CMS/HCC) (HCC) (Primary Dx); Mixed hyperlipidemia; Congestive heart failure, unspecified HF chronicity, unspecified heart failure type (HCC); Stage 3a chronic kidney disease (HCC) Social History Tobacco Use Types Packs/Day Years [...] week 01/12/2023 How often do you attend [facility] or mu-ism services? Never 01/12/2023 Do you belong to any clubs o r organizations such as yazidi groups, unions, fraternal or athletic groups, or [...] [place] [facility] (including now)? No 01/12/2023 Personal Safety Answer Date Recorded Getting School Help Needed Denies 11/10 Sex and Gender Information Value Date Recorded Sex Assigned at Not on file Legal Sex Male 1:17 PM FRAME CHANGER Gender Identity Not on file Sexual Orientation Not on file documented as of this encounter Last Filed Vital Signs Vital Sign Reading Time Taken Comments Blood Pressure 135/81 2023 10:41 AM FRAME CHANGER Pulse 66 2023 10:41 AM FRAME CHANGER Temperature - - Respiratory Rate 18 2023 10:41 AM FRAME CHANGER Oxygen Saturation - - Inhaled Oxygen Concentration - - Weight 89.4 kg (197 lb) 2023 10:41 AM FRAME CHANGER Height 172.7 cm (5' 8 ) 2023 10:41 AM FRAME CHANGER Body Mass Index 29.95 2023 10:41 AM FRAME CHANGER documented in this encounter Progress Notes * Bg Miller NP - 2023 10:45 AM CST Cardiology note Reason for Office Visit: F/u visit for AFib History of Present Illness: This is an 82-year-old male with PMH of COPD, basal cell carcinoma right cheek s/p wide excision, HTN presented with complaints of 2 day history of worsening dyspnea. Pt reports that he has been sick with cough and body ache for past 2 weeks. Patient states that he was more short of breath last night, and was unable to lie flat to sleep. He presented to an urgent care and was noted to have oxygen saturation 88 %. EMS was contacted and supplemental oxygen was started. Pt received neb treatment en route. When he was seen in the ER he was noted to be in AFib. He spontaneously converted to normal sinus rhythm on his own. He was also treated with IV Lasix for heart failure seen in the hospital. Since discharge he states that he has been doing better. Denies chest pain, sob, palpitations, syncope, or edema. All questions were answered verbalized understanding of plan of care listed below. 05/28/23 Seen in office for follow up. Denies chest pain, sob, palpitations, syncope, or edema. All questions were answered verbalized understanding of plan of care listed below. He states he is unsure if he will continue taking Eliquis due to the cost. I discussed with patient the need for anticoagulation to prevent stroke. He did not want to switch to warfarin. He verbalized understanding of risks and benefits. A prescription was called and Eliquis to his pharmacy, but unsure if he will take it. 12/17/23 Pt returns to the office today for follow up. Seen in office for follow up. Denies chest pain, sob,palpitations, syncope, or edema. All questions were answered verbalized understanding of plan of care listed below. He still refuses anticoagulation and amulet at this time. He understands his risk of stroke. Today is his birthday. We wished him a happy birthday. Weight up 6 lb Past Medical History: Diagnosis Date Asbestosis (CMS/HCC) (HCC) asbestosis Cancer (CMS/HCC) (HCC) biopsy showed small area of prostate cancer Chronic diarrhea COPD (chronic obstructive pulmonary disease) (HCC) HX OTHER MEDICAL dyslipidemia HX OTHER MEDICAL PAD HX OTHER MEDICAL ED HX OTHER MEDICAL 01-pulmonolgist HX OTHER MEDICAL v. veins HX OTHER MEDICAL prostatism HX OTHER MEDICAL diastasis recti HX OTHER MEDICAL 2002 diverticular bleed HX OTHER MEDICAL 2013 Prostate biopsy Hypertension Hypertension Mixed hyperlipidemia Obstructive chronic bronchitis without exacerbation Polyp of colon colon polyps PONV (postoperative nausea and vomiting) Review of systems: Review of Systems Constitutional: Negative. HENT: Negative. Eyes: Negative. Cardiovascular: Negative. Respiratory: Negative for cough, hemoptysis, shortness of breath, sleep disturbances due to breathing and snoring. Endocrine: Negative. Skin: Negative. Musculoskeletal: Negative. Gastrointestinal: Negative. Genitourinary: Negative. Neurological: Negative. Psychiatric/Behavioral: Negative. Family and Social history Family History Problem Relation Age of Onset Dementia Mother 87 Dementia; Cancer Mother 87 cancer; Other Father hx not provided; Cancer Brother 60 Cancer -; Bone cancer Brother Brain cancer Brother 62 Cancer -brain; Lung cancer Brother 62 Cancer -lung; Lung cancer Sister Cancer, lung; Brain cancer Sister Social History Tobacco Use Smoking status: Former Types: Cigarettes Quit date: 2011 Years since quittin.1 Smokeless tobacco: Never Substance and Sexual Activity Drug use: Yes Sexual activity: Defer Partners: Female Alcohol Use: Not At Risk (01/24/2022) AUDIT-C Frequency of Alcohol Consumption: Never Average Number of Drinks: Not on file Frequency of Binge Drinking: Not on file Allergies Allergen Reactions Miguel A Inhibitors Cough Reaction: Cough, Acetaminophen Unknown Medications: Current Outpatient Medications Medication Sig Dispense Refill albuterol HFA (PROAIR HFA) 90 mcg/actuation inhaler inhale 2 puff by inhalation route every 4 - 6 hours as needed 1 Inhaler 1 amlodipine-atorvastatin (CADUET) 5-10 mg per tablet Take 1 tablet by mouth daily apixaban (ELIQUIS) 5 mg tablet Take 1 tablet (5 mg total) by mouth every 12 (twelve) hours 30 tablet 2 calcium carbonate (OS-PINEDA) 1,500 mg (600 mg of elemental calcium) tablet Take 1 tablet (1,500 mg total) by mouth daily. 30 tablet 0 cholecalciferol (VITAMIN D-3) 5,000 unit tablet Take 1 tablet (5,000 Units total) by mouth daily. 90 tablet 0 docusate sodium (Colace) 100 mg capsule Take 1 capsule (100 mg total) by mouth 2 (two) times a day for 14 days 28 capsule 2 fluticasone propionate (FLONASE) 50 mcg/actuation nasal spray Administer 50 sprays into each nostril 2 (two) times a day as needed irbesartan-hydrochlorothiazide (AVALIDE) 150-12.5 mg per tablet meclizine (ANTIVERT) 12.5 mg tablet Take 1 tablet (12.5 mg total) by mouth 3 (three) times a day asneeded for dizziness 30 tablet 0 metoprolol tartrate (LOPRESSOR) 25 mg immediate release tablet Take 1 tablet (25 mg total) by mouth2 (two) times a day 60 tablet 11 montelukast (SINGULAIR) 10 mg tablet Take 10 mg by mouth nightly umkzuggg-ldr-ieiwg-vit K-lycop (ONE-A-DAY MEN'S MULTIVITAMIN) 400-20-300 mcg tablet Take one by mouth one time per day 0 0 ondansetron (ZOFRAN) 4 mg tablet Take 1 tablet (4 mg total) by mouth every 6 (six) hours (Patient not taking: Reported on 02/06/2022) 12 tablet 0 tamsulosin (FLOMAX) 0.4 mg capsule,extended release 24hr take 1 capsule by oral route every day 1/2hour following the same meal each day 0 0 traMADoL (ULTRAM) 50 mg tablet Take 0.5 tablets (25 mg total) by mouth every 6 (six) hours as needed for pain 25 tablet 0 Trelegy Ellipta 100-62.5-25 mcg inhaler TAKE 1 INHALATION BY MOUTH DAILY No current facility-administered medications for this visit. Vital Signs: Vitals BP 135/81 (BP Location: Right arm, Patient Position: Sitting) Pulse 66 Resp 18 Ht 172.7 cm (5' 8 ) Wt 89.4 kg (197 lb) BMI 29.95 kg/m?? Vitals: 12/17/23 1041 BP: 135/81 Pulse: 66 Resp: 18 Wt Readings from Last 3 Encounters: 12/17/23 89.4 kg (197 lb) 05/28/23 86.6 kg (191 lb) 02/26/23 88 kg (194 lb) Physical Exam: Physical Exam Constitutional: Appearance: Normal appearance. HENT: Head: Normocephalic. Nose: Nose normal. Eyes: Pupils: Pupils are equal, round, and reactive to light. Cardiovascular: Rate and Rhythm: Normal rate and regular rhythm. Pulmonary: Effort: Pulmonary effort is normal. Breath sounds: Normal breath sounds. No rales. Chest: Chest wall: No tenderness. Abdominal: General: Abdomen is flat. Bowel sounds are normal. Palpations: Abdomen is soft. Musculoskeletal: General: Normal range of motion. Cervical back: Normal range of motion. Right lower leg: No edema. Left lower leg: No edema. Skin: General: Skin is warm. Capillary Refill: Capillary refill takes less than 2 seconds. Neurological: General: No focal deficit present. Mental Status: He is alert and oriented to person, place, and time. Mental status is at baseline. Psychiatric: Mood and Affect: Mood normal. Behavior: Behavior normal. Labs: No lab exists for component: KPLASMA No lab exists for component: LABALBU Lab Results Component Value Date CHOL 137 06/05/2023 TRIG 97 06/05/2023 HDL 37 (L) 06/05/2023 LDL 72 01/21/2017 Lab Results Component Value Date TSH 1.56 03/04/2023 FREET4 1.10 07/24/2017 Testing: No results found. No results found for this or any previous visit.] CARDIOGRAPHICS: Echo 01/29 Conclusions: Normal left ventricular systolic function with no focal wall motion abnormalities. Normal left ventricular size. Normal left ventricular wall thickness. Mild enlargement of left ventricle cavity. Diastolic dysfunction is present. Ejection fraction is measured at 63 %. There is mild enlargement of left atrium. Ekg 01/13/23 Afib rvr Vent Rate: 133 bpm RR Interval: 449 msec WV Interval: 0 msec QRS Duration: 99 msec QT Interval: 282 msec QTC Interval: 360 msec Stress 05/01 Conclusions: 1. Myocardial Perfusion: Normal rest and stress images. 2. Left ventricle: Normal size and systolic function (EF >50%) Monitor 03/31 Conclusions: Sinus rhythm with heart rates 52-119 beats per minute No atrial fibrillation, no pauses No triggered events Impression and Plan: Paroxysmal atrial fibrillation with RVR chronic systolic CHF Obesity Hyperlipidemia Hypertension COPD Plan Discussed with patient anticoagulation or amulet, for which he refuses Reviewed stress day and monitor Monitor BP/heart rate closely Blood pressure better controlled Monitor weights daily and for signs of worsening heart failure Follow-up 1 year or sooner pending patient condition Diagnoses and all orders for this visit: Paroxysmal A-fib (CMS/HCC) (HCC) (Primary) Mixed hyperlipidemia Congestive heart failure, unspecified HF chronicity, unspecified heart failure type (HCC) Stage 3a chronic kidney disease (HCC) Bg Miller NP 2023 11:11 AM Cc:Cassius London MD E CHANGER documented in this encounter Plan of Treatment Not on file documented as of this encounter Visit Diagnoses Diagnosis Paroxysmal A-fib (CMS/HCC) (HCC)- Primary Mixed hyperlipidemia Congestive heart failure, unspecified HF chronicity, unspecified heart failure type (HCC) Stage 3a chronic kidney disease (HCC) documented in this encounter Care Teams Button Puncher Relationship Specialty Start Date End Date Cassius London MD [address] [place] [address] PCP - General 02/06/17 documented as of this encounter
--- OUTSIDE RECORDS SUMMARY | 2024-10-26 01:15 | XMS_ITS | Encounter Summary ---
Author Organization [facility] Healthcare Address [address] [place] [address] Care Team Providers Care Medication Care Manager Name Role Phone Cassius London MD Primary Care Provider + Reason for Visit * Diagnostic Imaging (Routine) - Pending Review Specialty Diagnoses / Procedures Referred By Contac t Referred To Contact Diagnoses Abdominal aortic aneurysm (AAA) without rupture, unspecified part (HCC) Procedures US Abdominal Aortic Aneurysm Screening US Abdominal Aorta Cassius London MD [address] [place] [address] Phone: tel: fax: [address] [phone] Referral ID Status Reason Start Date Expiration Date V isits Requested Visits Authorized [id number] Pending Review 09/06/2024 10/06/2025 1 1 Encounter Details Date Type Department Care Team (Latest Contact Info) Description 10/13/2024 8:10 AM SOCIAL SCIENCES CHAIR - 10/13/2024 11:59 PM SOCIAL SCIENCES CHAIR Hospital Encounter [facility] [address] [place] [id number] Abdominal aortic aneurysm (AAA) without rupture, unspecified part (HCC) Discharge Disposition: Discharge to home or self care Social History Tobacco Use Types Packs/Day Years Used Date Smoking Tobacco: Former Cigarettes Q uit: 2012 Smokeless Tobacco: Never Alcohol Use Standard Drinks/Week Comments No 0 (1 standard drink = 0.6 oz pur e alcohol) [facility] Utilities Answer Date Recorded In the past 12 months has [employer], gas, oil, or water [employer] threatened to shut off services in your [...] often do you attend chur ch or synagogue services? Never 01/20/2024 Do you belong to any clubs o r organizations such as jewish groups, unions, fraternal or athletic groups, or [...] place to sleep or slept in a longterm (including now)? No 01/20/2024 Personal Safety Answer Date Recorded Have you ever been in or are you currently in a harmful physical or emotional relationship or is someone making you feel afraid or unsafe? Denies 01/20/2024 Sex and Gender Information Value Date Recorded Sex Assigned at Not on file Legal Sex Male 1:17 PM SOCIAL SCIENCES CHAIR Gender Identity Not on file Sexual Orientation [...] BY MOUTH DAILY 90 tablet 3 03/21/2024 5 metoprolol tartrate (LOPRESSOR) 50 mg immediate release tablet Take 1 tablet (50 mg total) by mouth 2 (two) times a day 60 tablet 11 04/08/2024 5 montelukast (SINGULAIR) 10 mg tablet Take 1 tablet (10 mg total) by mouth nightly 09/09/2021 odubynhi-qsm-nyt ic-vit K-lycop (ONE-A-DAY MEN'S MULTIVITAMIN) 400-20-300 mcg tablet Take one by mouth one time per day 0 0 08/23/2008 simvastatin (ZOCOR) 10 mg tablet Take 1 tablet (10 mg total) by mouth nightly Gideon Truongta 200-62.5-25 mcg inhaler 05/06/2023 documented as of this encounter Discharge Disposition Disposition Code Departure Means Destination Discharge to home or self care documented in this encounter Plan of Treatment Not on file documented as of this encounter Procedures Procedure Name Priority Date/Time Associated Diagnosis Comments US ABDOMINAL AORTIC ANEURYSM SCREENING Schedule Routine, Read Routine (OP Routine) 10/13/2024 8:51 AM SOCIAL SCIENCES CHAIR Abdominal aortic aneurysm (AAA) without rupture, unspecified part (HCC) documented in this encounter Results * US Abdominal Aortic Aneurysm Screening (10/13/2024 8:51 AM SOCIAL SCIENCES CHAIR) Anatomical Region Laterality Modality Abdomen Ultrasound 10/17/2024 8:45 AM SOCIAL SCIENCES CHAIR Narrative 10/17/2024 8:48 AM SOCIAL SCIENCES CHAIR EXAM DESCRIPTION: ?? US ABDOMINAL AORTIC ANEURYSM [...] for Vascular Surgery Guidelines: J Vasc Surgery 2009 Oct 50: [id number]; updated Nov 2017 J Vasc Surgery 67:277 THIS IS AN ELECTRONICALLY VERIFIED FINAL REPORT 10/17/2024 8:48 AM - Electronically signed by ??Eder Bartlett M.D. RB: MCKENZIE D: ??10/17/2024 8:48 AM T: ??10/17/2024 8:48 AM Report ID: [id number] Reading Location: ??[id number] Procedure Note Eder Bartlett MD - 10/17/2024 [...] Eder Bartlett M.D. RB: MCKENZIE Report ID: [id number] Reading Location: [place] [address] us Cassius London MD [facility] PROCEDURES Final Result documented in this encounter Visit Diagnoses Diagnosis Abdominal aortic aneurysm (AAA) without rupture, unspecified part (HCC) documented in this encounter Care Teams Medication Care Manager Relationship Specialty Start Date End Date Cassius London MD [address] [place] [address] PCP - General 02/06/17 documented as of this encounter
--- OUTSIDE RECORDS SUMMARY | 2024-10-26 01:15 | XMS_ITS | Encounter Summary ---
Author Organization [facility] Address [address] [place] [address] Care Team Providers Care Repairer Auto Clocks Name Role Phone Cassius London MD Primary Care Provider + Reason for Referral * MRI/CAT/PET Scan (Routine) - Closed Specialty Diagnoses / Procedures Referred By Contac t Referred To Contact Radiology Diagnoses Spinal stenosis, lumbar region with neurogenic claudication Procedures MRI Lumbar Spine WO Contrast Cassius London MD [address] [place] [address] [place] [address] Phone: tel: fax: [address] [phone] Referral ID Status Reason Start Date Expiration Date Visits Re quested Visits Authorized [id number] Closed 09/06/2024 10/06/2025 1 1 ET [facility]OR [facility] Reason for Visit * MRI/CAT/PET Scan (Routine) - Closed Specialty Diagnoses / Procedures Referred By Contac t Referred To Contact Radiology Diagnoses Spinal stenosis, lumbar region with neurogenic claudication Procedures MRI Lumbar Spine WO Contrast Cassius London MD [address] [place] [address] [place] [address] Phone: tel: fax: [address] [phone] Referral ID Status Reason Start Date Expiration Date Visits Re quested Visits Authorized [id number] Closed 09/06/2024 10/06/2025 1 1 Encounter Details Date Type Department Care Team (Latest Contact Info) Description 09/27/2024 8:36 AM PICKET LABOR [facility] - 09/27/2024 11:59 PM PICKET LABOR [facility] Hospital Encounter [facility] [address] [place] [address] Spinal stenosis, lumbar region with neurogenic claudication Discharge Disposition: Discharge to home or self care Social History Tobacco Use Types Packs/Day Years Used Date Smoking Tobacco: Former Cigarettes Q uit: 2011 Smokeless Tobacco: Never Alcohol Use Standard Drinks/Week Comments No 0 (1 standard drink = 0.6 oz pur e alcohol) [facility] Utilities Answer Date Recorded In the past 12 months has th e electric, gas, oil, or water company [...] often do you attend chur ch or yazdanism services? Never 01/20/2024 Do you belong to any clubs o r organizations such as anglican groups, unions, fraternal or athletic groups, or [...] place to sleep or slept in a long-term (including now)? No 01/20/2024 Personal Safety Answer Date Recorded Have you ever been in or are you currently in a harmful physical or emotional relationship or is someone making you feel afraid or unsafe? Denies 01/20/2024 Sex and Gender Information Value Date Recorded Sex Assigned at Not on file Legal Sex Male 1:17 PM PICKET LABOR [facility] Gender Identity Not on file Sexual Orientation [...] total) by mouth daily. 90 tablet 07/29/2017 irbesartan-hydro CHLOROthiazide (AVALIDE) 300-12.5 mg per tabletIndication s:hypertension TAKE 1 TABLET BY MOUTH DAILY 90 tablet 3 03/21/2024 5 metoprolol tartrate (LOPRESSOR) 50 mg immediate release tablet Take 1 tablet (50 mg total) by mouth 2 (two) times a day 60 tablet 11 04/08/2024 5 montelukast (SINGULAIR) 10 mg tablet Take 1 tablet (10 mg total) by mouth nightly 09/09/2021 vfyxpybs-deo-ioz ic-vit K-lycop (ONE-A-DAY MEN'S MULTIVITAMIN) 400-20-300 mcg tablet Take one by mouth one time per day 0 0 08/23/2008 simvastatin (ZOCOR) 10 mg tablet Take 1 tablet (10 mg total) by mouth nightly Trelegy Ellipta 200-62.5-25 mcg inhaler 05/06/2023 apixaban (Eliquis) 5 mg tablet Take 1 tablet (5 mg total) by mouth every 12 (twelve) hours 180 tablet 3 01/05/2024 4 documented as of this encounter Discharge Disposition Disposition Code Departure Means Destination Discharge to home or self care documented in this encounter Plan of Treatment Not on file documented as of this encounter Procedures Procedure Name Priority Date/Time Associated Diagnosis Comments MRI LUMBAR SPINE WO CONTRAST Schedule Routine, Read Routine (OP Routine) 09/27/2024 9:04 AM PICKET LABOR [facility] Spinal stenosis, lumbar region with neurogenic claudication documented in this encounter Results * MRI Lumbar Spine WO Contrast (09/27/2024 9:04 AM PICKET LABOR [facility]) Anatomical Region Laterality Modality Spine N/A Magnetic Resonan ce 09/27/2024 10:2 8 AM PICKET LABOR [facility] Narrative 09/27/2024 10:36 AM PICKET LABOR [facility] EXAM DESCRIPTION: ?? MRI LUMBAR SPINE WO [...] 10:36 AM - Electronically signed by ??Lino Garcia M.D. DIXON: DIXON D: ??09/27/2024 10:36 AM T: ??09/27/2024 10:36 AM Report ID: [id number] Reading Location: ??[id number] Procedure Note Lino Garcia MD - 09/27/2024 [...] body heights unchanged. Spondylosis. Scattered hemangiomas, most [id number] vertebral body, and patchy fatty marrow replacement [...] Lino Garcia M.D. DIXON: DIXON Report ID: [id number] Reading Location: [place] [address] Cassius London MD IMG MRI PROCEDURES Final Result documented in this encounter Visit Diagnoses Diagnosis Spinal stenosis, lumbar region with neurogenic claudication documented in this encounter Care Teams Repairer Auto Clocks Relationship Specialty Start Date End Date Cassius London MD [address] [address] PCP - General 02/06/17 documented as of this encounter
--- OUTSIDE RECORDS SUMMARY | 2024-10-26 01:15 | XMS_ITS | Encounter Summary ---
Author Organization [facility] Healthcare Address [address] [place] [address] Care Team Providers Care Division Field Inspector Name Role Phone Cassius London MD Primary Care Provider + Reason for Referral * MRI/CAT/PET Scan (Routine) - Closed Specialty Diagnoses / Procedures Referred By Italia valles Referred To Contact Radiology Diagnoses Solitary pulmonary nodule Procedures CT [place] [address] [place] [address] Phone: tel: fax: [address] [phone] Referral ID Status Reason Start Date Expiration Date Visits Re quested Visits Authorized [id number] Closed 05/31/2024 07/30/2024 1 1 Reason for Visit * MRI/CAT/PET Scan (Routine) - Closed Specialty Diagnoses / Procedures Referred By Italia valles Referred To Contact Radiology Diagnoses Solitary pulmonary nodule Procedures [place] [address] [address] [place] [id number] Phone: tel: fax: [address] [phone] Referral ID Status Reason Start Date Expiration Date Visits Re quested Visits Authorized [id number] Closed 05/31/2024 07/30/2024 1 1 Encounter Details Date Type Department Care Team (Latest Contact Info) Description 05/31/2024 9:30 AM CDT - 05/31/2024 11:59 PM CDT Hospital Encounter [facility] [address] [place] [address] Solitary pulmonary nodule Discharge Disposition: Discharge to home or self care Social History Tobacco Use Types Packs/Day Years Used Date Smoking Tobacco: Former Cigarettes Q uit: 2012 Smokeless Tobacco: Never Alcohol Use Standard Drinks/Week Comments No 0 (1 standard drink = 0.6 oz pur e alcohol) [facility] Utilities Answer Date Recorded In the past [...] often do you attend chur ch or restorationist services? 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 Gender Identity Not on file Sexual [...] (10 mg total) by mouth nightly 09/09/2021 mjgpuppd-qap-dar ic-vit K-lycop (ONE-A-DAY MEN'S MULTIVITAMIN) 400-20-300 mcg [...] Priority Date/Time Associated Diagnosis Comments CT CHEST WO CONTRAST Schedule Routine, Read Routine (OP Routine) 05/31/2024 10:10 AM CDT Solitary pulmonary nodule documented in this encounter Results * CT Chest WO Contrast (05/31/2024 10:10 AM CDT) Anatomical Region Laterality Modality Body N/A Computed Tomogra phy 06/01/2024 7:47 AM CDT Narrative 06/01/2024 8:00 AM CDT EXAM DESCRIPTION: CT CHEST WO CONTRAST REASON FOR STUDY: R91.1 ?? F/u to abnormal chest ct done 05/18/23 ?? TECHNIQUE: Multiplanar computed tomographic imaging of the thorax. Automated exposure control was used as a dose optimization technique for this study. COMPARISON: May 18, 2023. FINDINGS: Trachea is midline. ??Central airways are patent. ??Pulmonary emphysema. ?? Evidence of prior granulomatous infection. ??Apical nodularity is felt to represent scarring. ??Nodular opacity medially right upper lobe axial image 30 is unchanged in size and appearance. ??Nodular opacity laterally left upper lobe axial image 28 is unchanged in size and appearance. ??Scattered areas of atelectasis. Thoracic aorta is atherosclerotic but normal in caliber. ??Multiple small nonspecific mediastinal lymph nodes. ??Normal heart size. ??Coronary artery calcification. ??Trace pericardial effusion. IMPRESSION: No acute intrathoracic abnormality. ??No significant change. THIS IS AN ELECTRONICALLY VERIFIED FINAL REPORT 06/01/2024 8:00 AM - Electronically signed by ??Reji Alexander M.D. SN: SN D: ??06/01/2024 8:00 AM T: ??06/01/2024 8:00 AM Report ID: [id number] Reading Location: ??[id number] Procedure Note Reji Alexander MD - 06/01/2024 EXAM DESCRIPTION: CT CHEST WO CONTRAST REASON FOR STUDY: R91.1 F/u to abnormal chest ct done 05/18/23 TECHNIQUE: Multiplanar computed tomographic imaging of the thorax. Automated exposure control was used as a dose optimization technique forthis study. COMPARISON: May 18, 2023. FINDINGS: Trachea is midline. Central airways are patent. Pulmonary emphysema. Evidence of prior granulomatous infection. Apical nodularity is felt to represent scarring. Nodular opacity medially right upper lobe axial image30 is unchanged in size and appearance. Nodular opacity laterally left upper lobe axial image 28 is unchanged in size and appearance. Scattered areasof atelectasis. Thoracic aorta is atherosclerotic but normal in caliber. Multiple small nonspecific mediastinal lymph nodes. Normal heart size. Coronary artery calcification. Trace pericardial effusion. IMPRESSION: No acute intrathoracic abnormality. No significant change. THIS IS AN ELECTRONICALLY VERIFIED FINAL REPORT 06/01/2024 8:00 AM - Electronically signed by Reji Alexander M.D. SN: SN Report ID: [id number] Reading Location: [place] [address] Andrey Uribe MD IMG CT PROCEDURES Marah l Result documented in this encounter Visit Diagnoses Diagnosis Solitary pulmonary nodule documented in this encounter Care Teams Division Field Inspector Relationship Specialty Start Date End Date Cassius London MD [address] [place] [address] PCP - General 02/06/17 documented as of this encounter
--- OUTSIDE RECORDS SUMMARY | 2024-10-26 01:15 | XMS_ITS | Encounter Summary ---
Author Organization [facility] Healthcare Address [address] [place] [address] Care Team Providers Care Inspector Heating And Refrigeration Name Role Phone Cassius London MD Primary Care Provider + Encounter Details Date Type Department Care Team (Late st Contact Info) Description 04/08/2024 Orders Only [facility] at [address] [place] [address] Bg Miller NP [address] [place] [address] [address] [place] [address] Social History Tobacco Use Types Packs/Day Years Used Date Smoking Tobacco: Former Cigarettes Q uit: 2012 Smokeless Tobacco: Never Alcohol Use Standard Drinks/Week Comments No 0 (1 standard drink = 0.6 oz pur e alcohol) [facility] Utilities Answer Date Recorded In the past 12 months has [employer], gas, oil, or water [employer] threatened to shut off services in your [...] 01/20/2024 How often do you attend chur or tenriism services? Never 01/20/2024 Do you belong to any clubs o r organizations such as jew groups, unions, fraternal or athletic groups, or [...] No 01/20/2024 Housing Stability Vital Sign Answer Bejnamin e Recorded In the last 12 months, [...] place to sleep or slept in a long term (including now)? No 01/20/2024 Personal Safety Answer Date Recorded Have you ever been in or are you currently in a harmful physical or emotional relationship or is someone making you feel afraid or unsafe? 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 Gender Identity Not on file Sexual Orientation Not on file documented as of this encounter Ordered Prescriptions Prescription Sig Dispense Quantity Refills Last Filled Start Date End Date metoprolol tartrate (LOPRESSOR) 50 mg immediate release tablet Take 1 tablet (50 mg total) by mouth 2 (two) times a day 60 tablet 11 04/08/2024 04/08/2025 documented in this encounter Plan of Treatment Not on file documented as of this encounter Visit Diagnoses Not on filedocumented in this encounter Discontinued Medications Medication Sig Discontinue Reason Start Date End Da te metoprolol tartrate (LOPRESSOR) 50 mg immediate release tablet Take 1 tablet (50 mg total) by mouth 2 (two) times a day Reorder 01/22/2024 04/08/2024 documented as of this encounter Care Teams Inspector Heating And Refrigeration Relationship Specialty Start Date End Date Cassius London MD [address] [address] PCP - General 02/06/17 documented as of this encounter
--- OUTSIDE RECORDS SUMMARY | 2024-10-26 01:15 | XMS_ITS | Referral Summary ---
Author Organization [facility] Address [address] [place] [phone] Care Team Providers Care Supervising Floorperson Name Role Phone Cassius Londno MD Primary Care Provider + Encounters Date Type Department Care Team Description 10/13/2024 8:15 AM ALGOLOGY TEACHER Lab [address] [phone] 10/13/2024 8:10 AM ALGOLOGY TEACHER - 10/13/2024 11:59 PM ALGOLOGY TEACHER Hospital Encounter [facility] [address] [place] [id number] Cough, unspecified type Discharge Disposition: Discharge to home or self care 10/13/2024 8:10 AM ALGOLOGY TEACHER - 10/13/2024 11:59 PM ALGOLOGY TEACHER Hospital Encounter [facility] [address] [place] [id number] Abdominal aortic aneurysm (AAA) without rupture, unspecified part (HCC) Discharge Disposition: Discharge to home or self care 10/12/[address] [address] Roma Lewis 09/27/2024 8:36 AM ALGOLOGY TEACHER - 09/27/2024 11:59 PM ALGOLOGY TEACHER Hospital Encounter [address] [address] Spinal stenosis, lumbar region with neurogenic claudication Discharge Disposition: Discharge to home or self care from Last 3 Months Allergies Active Allergy Reactions Criticality Noted Date Comments Miguel A Inhibitors Cough Reaction: Cough, Acetaminophen Unknown 06/29/2020 Medications albuterol HFA (PROAIR HFA) 90 mcg/actuation inhaler inhale 2 puff by inhalation route every 4 - 6 hours as needed 1 Inhaler 1 09/25/20 15 Active llbyaabh-okt-p olic-vit K-lycop (ONE-A-DAY MEN'S MULTIVITAMIN) 400-20-300 mcg [...] tingling of right hand 12/24/2023 Paroxysmal A-fib ([facility]) 05/26/2023 Congestive heart failure ([facility]) 05/26/2023 CKD (chronic kidney disease) stage 3, GFR 30-59 ml/min 02/26/2023 COPD exacerbation 01/10/2023 Inguinal hernia without obstruction or gangrene 12/19/2021 Assessment & Plan (02/06/2022 10:37 AM CDT): Continue light duty for another 2 weeks. Continue bowel regimen if needed to avoid straining. Diet as tolerates. Patient will call us back with any further questions or concerns. Assessment & Plan (12/19/2021 10:40 AM ALGOLOGY TEACHER): I will set the patient up for a robotic assisted left inguinal hernia repair. Risks and benefits have been discussed as well as postoperative restrictions. Preoperative testing will be sent in. Consent to be obtained. All questions answered. 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 Recommend close follow-up with chemistry technical officer if he does not the rapid improvement within 1-2 days. He has an chemistry technical officer, Dr. Hernandez. He verbalized understanding and was in agreement with the plan of care. He offered no further complaints. 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/25/2014 08/12/2017 Overview (02/14/2017): TOBACCO USE DISORDER Immunizations Name Administration Dates Next Due Influenza, Split 08/09/2010,07/10/2009 Influenza, Trivalent, High D ose, Split, Preservative Free, Intramuscular 08/12/2017,08/06/2016,07/31/2015,09/04 Influenza, Trivalent, IM (MDV) 08/09/2011 Influenza, Unspecified 08/13/2023,08/21/2022 Pneumococcal Conjugate PCV 13 12/04/2014 Pneumococcal Polysaccharide PPV23 03/26/2009 Td, adsorbed 03/26/2009 Tdap 01/30/2017 ZOSTER LIVE 12/04/2014 Social History Tobacco Use Types Packs/Day Years Used Date Smoking Tobacco: Former Cigarettes Q uit: 2011 Smokeless Tobacco: Never Tobacco Cessation:Counseling Given: Not Answered Alcohol Use Standard Drinks/Week Comments No 0 (1 standard drink = 0.6 oz pur e alcohol) [facility] Utilities Answer Date Recorded In the past 12 months has e [employer], gas, oil, or water company threatened to [...] often do you attend chur ch or pentecostalism services? Never 01/20/2024 Do you belong to any clubs o r organizations such as buddhist groups, unions, fraternal or athletic groups, or [...] place to sleep or slept in a detention (including now)? No 01/20/2024 Personal Safety Answer Date Recorded Have you ever been in or are you currently in a harmful physical or emotional relationship or is someone making you feel afraid or unsafe? Denies 01/20/2024 Sex and Gender Information Value Date Recorded Sex Assigned at Not on file Legal Sex Male 1:17 PM ALGOLOGY TEACHER Gender Identity Not on file Sexual Orientation Not on file Last Filed Vital Signs Vital Sign Reading [...] 01/20/2024 1:04 AM CDT Plan of Treatment Not on file Medical Devices Implanted Type Area Musical Engineer Device Identifier Shelf Expiration Date Model / Serial / Lot [employer] [id number] Progrip [id number] Self Fixate Flat Sheet Mesh Surgical Jose Antonio Pet Latex Free - [id number] Implanted:Qty: 1 on 01/24/2022 by Willie Brown MD at [facility] Left: Abdomen [employer] 06/08/2024 [id number] / / [id number] Procedures Procedure Name Priority Date/Time Associated Diagnosis Comments CT CHEST W CONTRAST Schedule Routine, Read Routine (OP Routine) 10/13/2024 9:28 AM ALGOLOGY TEACHER Cough, unspecified type US ABDOMINAL AORTIC ANEURYSM SCREENING Schedule Routine, Read Routine (OP Routine) 10/13/2024 8:51 AM ALGOLOGY TEACHER Abdominal aortic aneurysm (AAA) without rupture, unspecified part (HCC) CREATININE, WHOLE BLOOD STAT 10/13/2024 8:17 AM ALGOLOGY TEACHER MRI LUMBAR SPINE WO CONTRAST Schedule Routine, Read Routine (OP Routine) 09/27/2024 9:04 AM ALGOLOGY TEACHER Spinal stenosis, lumbar region with neurogenic claudication PSA SCREEN Routine 07/24/2017 7:27 AM CDT Routine medical exam from Last 3 Months or Most Recently Relevant to Health Maintenance Results * CT Chest W Contrast (10/13/2024 9:28 AM ALGOLOGY TEACHER) Anatomical Region Laterality Modality Body N/A Computed Tomogra phy 10/17/2024 8:29 AM ALGOLOGY TEACHER Narrative 10/17/2024 8:45 AM ALGOLOGY TEACHER EXAM DESCRIPTION: CT CHEST W CONTRAST REASON [...] AM T: ??10/17/2024 8:45 AM Report ID: [id number] Reading Location: ??[id number] Procedure Note Eder Bartlett MD - 10/17/2024 [...] appears similar to previous and prior exam [id number]. Right upper lobe soft tissue density nodule [...] Eder Bartlett M.D. RB: MCKENZIE Report ID: [id number] Reading Location: [place] [address] us Cassius London MD IM CT PROCEDURES Final Result * US Abdominal Aortic Aneurysm Screening (10/13/2024 8:51 AM ALGOLOGY TEACHER) Anatomical Region Laterality Modality Abdomen Ultrasound 10/17/2024 8:45 AM ALGOLOGY TEACHER Narrative 10/17/2024 8:48 AM ALGOLOGY TEACHER EXAM DESCRIPTION: ?? US ABDOMINAL AORTIC ANEURYSM [...] AM T: ??10/17/2024 8:48 AM Report ID: [id number] Reading Location: ??[id number] Procedure Note Eder Bartlett MD - 10/17/2024 [...] Eder Bartlett M.D. RB: MCKENZIE Report ID: [id number] Reading Location: [place] [address] us Cassius London MD IMG US PROCEDURES Final Result * (ABNORMAL) Creatinine, whole blood (10/13/2024 8:17 AM ALGOLOGY TEACHER) Creatinine, bld 1.66(H) 0.60 - 1.30 mg/dL Blood 10/13/2024 8:17 AM ALGOLOGY TEACHER 10/13/2024 8:26 AM ALGOLOGY TEACHER us Cassius London MD LAB BLOOD ORDERABLES Fin al Result NNEKA RDQ ([place] [address] [facility] Department [place] [address] * MRI Lumbar Spine WO Contrast (09/27/2024 9:04 AM ALGOLOGY TEACHER) Anatomical Region Laterality Modality Spine N/A Magnetic Resonan ce 09/27/2024 10:2 8 AM ALGOLOGY TEACHER Narrative 09/27/2024 10:36 AM ALGOLOGY TEACHER EXAM DESCRIPTION: ?? MRI LUMBAR SPINE WO [...] AM T: ??09/27/2024 10:36 AM Report ID: [id number] Reading Location: ??[id number] Procedure Note Lino Garcia MD - 09/27/2024 [...] body heights unchanged. Spondylosis. Scattered hemangiomas, most [id number] vertebral body, and patchy fatty marrow replacement [...] Lino Garcia M.D. DIXON: DIXON Report ID: [id number] Reading Location: [place] [address] Cassius London MD IMG MRI PROCEDURES Final Result * PSA screen (07/24/2017 7:27 AM CDT) PSA-Total 2.61 0.10 - 4.00 ng/mL NNEKA CARDENAS Blood specimen (specimen) 07/24/2017 7:27 AM CDT 07/24/2017 5:25 PM CDT Cassius London MD LAB BLOOD ORDERABLES Fin al Result NNEKA CARDENAS [address] [address] Department of [place] [address] from Last 3 Months or Most Recently Relevant to Health Maintenance Insurance [employer] MEDICARE HMO HU[employer]NA MEDICARE HMO HU[employer]NA MEDICARE HMO Advance Directives For more information, please contact: [phone] * Full Code (Latest Code Status on File) Date Activated Date Inactivated Comments 01/20/2024 1:30 AM 01/22/2024 7:13 PM * Full Code Date Activated Date Inactivated Comments 01/11/2023 4:09 AM 01/15/2023 4:08 PM * Full Code Date Activated Date Inactivated Comments 05/29/2020 6:57 AM 05/29/2020 12:54 PM * Full Code Date Activated Date Inactivated Comments 05/29/2020 6:57 AM 05/29/2020 6:57 AM Care Teams Supervising Floorperson Relationship Specialty Start Date End Date Cassius London MD [address] [place] [address] PCP - General 02/06/17
--- OUTSIDE RECORDS SUMMARY | 2024-10-26 01:15 | XMS_ITS | Encounter Summary ---
Author Organization [facility] Healthcare Address [address] [place] [address] Care Team Providers Care Pe Teacher Name Role Phone Cassius London MD Primary Care Provider + Encounter Details Date Type Department Care Team (Late st Contact Info) Description 03/17/2024 Telephone [facility] [address] [place] [address] Blessing Addison Social History Tobacco Use Types Packs/Day Years Used Date Smoking Tobacco: Former Cigarettes Q uit: 2012 Smokeless Tobacco: Never Alcohol Use Standard Drinks/Week Comments No 0 (1 standard drink = 0.6 oz pur e alcohol) [facility] Utilities Answer Date Recorded In [...] often do you attend chur ch or oriental orthodox services? Never 01/20/2024 Do you belong to any clubs o r organizations such as rastafari groups, unions, fraternal or athletic groups, or [...] place to sleep or slept in a nursing home (including now)? No 01/20/2024 Personal Safety Answer Date Recorded Have you ever been in or are you currently in a harmful physical or emotional relationship or is someone making you feel afraid or unsafe? Denies 01/20/2024 Sex and Gender Information Value Date Recorded Sex Assigned at Not on file Legal Sex Male 1:17 PM OPTICS MANUFACTURING TECHNICIAN Gender Identity Not on file Sexual Orientation Not on file documented as of this encounter Miscellaneous Notes * Telephone Encounter - Blessing Addison - 03/17/2024 1:51 PM CDT CONFIRMED PATIENT'S CT SCAN APPT OF 03/18/24 @ 9:30 AM WITH PATIENT. TD documented in this encounter Plan of Treatment Not on file documented as of this encounter Visit Diagnoses Not on filedocumented in this encounter Care Teams Pe Teacher Relationship Specialty Start Date End Date Cassius London MD [address] [place] [address] PCP - General 02/06/17 documented as of this encounter
--- OUTSIDE RECORDS SUMMARY | 2024-10-26 01:15 | XMS_ITS | Encounter Summary ---
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, bilateral legs (HCC) Procedures US Arterial Doppler Lower Extremity Bilateral Cassius London MD [address] [place] [address] [place] [address] Phone: tel: fax: [address] [phone] Referral ID Status Reason Start Date Expiration Date Visits Re quested Visits Authorized [id number] Closed 05/08/2023 06/06/2024 1 1 Reason for Visit * Diagnostic Imaging (Routine) - Closed Specialty Diagnoses / Procedures Referred By Contac t Referred To Contact Diagnoses 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, bilateral legs (HCC) Procedures US Arterial Doppler Lower Extremity Bilateral Cassius London MD [address] [place] [address] [place] [address] Phone: tel: fax: [address] [phone] Referral ID Status Reason Start Date Expiration Date Visits Re quested Visits Authorized [id number] Closed 05/08/2023 06/06/2024 1 1 Encounter Details Date Type Department Care Team (Latest Contact Info) Description 06/25/2023 11:55 AM CDT - 06/25/2023 11:59 PM CDT Hospital Encounter [facility] [address] [place] [address] 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 Never 01/12/2023 Do you belong to any clubs o r organizations such as temple groups, unions, fraternal or athletic groups, or [...] place to sleep or slept in a residential (including now)? No 01/12/2023 Sex and Gender Information Value Date Recorded Sex Assigned at Not on file Legal Sex Male 1:17 PM [employer] Gender Identity Not on file Sexual Orientation [...] (10 mg total) by mouth nightly 09/09/2021 erlvmkcf-bbw-dhgio -vit K-lycop (ONE-A-DAY MEN'S MULTIVITAMIN) 400-20-300 mcg tablet Take one by mouth one time per day 0 0 08/23/2008 simvastatin (ZOCOR) 10 mg tablet Take 1 tablet (10 mg total) by mouth nightly Trelegy Ellipta 200-62.5-25 mcg inhaler 05/06/2023 amLODIPine (NORVASC) 5 mg tablet 06/08/2023 03/15/202 4 apixaban (ELIQUIS) 5 mg tabletIndications: atrial [...] Name Priority Date/Time Associated Diagnosis Comments US ARTERIAL DOPPLER LOWER EXTREMITY BILATERAL Schedule Routine, Read Routine (OP Routine) 06/25/2023 12:23 PM CDT 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 US ARTERIAL DOPPLER LOWER EXTREMITY BILATERAL REASON FOR STUDY: ?? ASTHEROSCLEROSIS OF [place] ARTERIES OF EXTREMITIES WITH INTERMITTENT CLAUDICATION BILATERAL LEGS ?? TECHNIQUE: Spectral analysis of the lower extremity arteries. ??ABIs recorded. COMPARISON: ?? None FINDINGS: Segmental pressures on the right are as follows: Brachial Artery: 139 mm Hg. Common Femoral Artery: 206 mm Hg. No submitted waveform. Superficial Femoral Artery: ??211 mm Hg. No submitted waveform. Popliteal Artery: 190 mm Hg. No submitted waveform. Posterior Tibial Artery: 172 mm Hg. Biphasic waveform. Dorsalis Pedis Artery: 161 mm Hg. Biphasic waveform. NOY is 1.24. Segmental pressures on the left are as follows: Brachial Artery: 138 mm Hg. Common Femoral Artery: 185 mm Hg. No submitted waveform. Superficial Femoral Artery: ??203 mm Hg. No submitted waveform. Popliteal Artery: 161 mm Hg. No submitted waveform. Posterior Tibial Artery: 165 mm Hg. Biphasic to triphasic waveform. Dorsalis Pedis artery: 155 mm Hg. Biphasic to triphasic waveform. NOY is 1.19. IMPRESSION: 1. ?? ABIs are within normal limits. ??No evidence of high-grade stenosis. THIS IS AN ELECTRONICALLY VERIFIED FINAL REPORT 06/25/2023 12:48 PM - Electronically signed by ??Braydon Roy M.D. AG: DION D: ??06/25/2023 12:48 PM T: ??06/25/2023 12:48 PM Report ID: [id number] Reading Location: ??[id number] Procedure Note Braydon Roy MD - 06/25/2023 EXAM DESCRIPTION: US ARTERIAL DOPPLER LOWER EXTREMITY BILATERAL REASON FOR STUDY: ASTHEROSCLEROSIS OF [place] ARTERIES OF EXTREMITIESWITH INTERMITTENT CLAUDICATION BILATERAL LEGS TECHNIQUE: Spectral analysis of the lower extremity arteries. ABIsrecorded. COMPARISON: None FINDINGS: Segmental pressures on the right are as follows: Brachial Artery: 139 mm Hg. Common Femoral Artery: 206 mm Hg. No submitted waveform. Superficial Femoral Artery: 211 mm Hg. No submitted waveform. Popliteal Artery: 190 mm Hg. No submitted waveform. Posterior Tibial Artery: 172 mm Hg. Biphasic waveform. Dorsalis Pedis Artery: 161 mm Hg. Biphasic waveform. NOY is 1.24. Segmental pressures on the left are as follows: Brachial Artery: 138 mm Hg. Common Femoral Artery: 185 mm Hg. No submitted waveform. Superficial Femoral Artery: 203 mm Hg. No submitted waveform. Popliteal Artery: 161 mm Hg. No submitted waveform. Posterior Tibial Artery: 165 mm Hg. Biphasic to triphasic waveform. Dorsalis Pedis artery: 155 mm Hg. Biphasic to triphasic waveform. NOY is 1.19. IMPRESSION: 1. ABIs are within normal limits. No evidence of high-grade stenosis. THIS IS AN ELECTRONICALLY VERIFIED FINAL REPORT 06/25/2023 12:48 PM - Electronically signed by Braydon Roy M.D. 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
--- OUTSIDE RECORDS SUMMARY | 2024-10-26 01:15 | XMS_ITS | Encounter Summary ---
Author Organization [facility] Healthcare Address [address] [place] [address] Care Team Providers Care Trash Man Name Role Phone Cassius London MD Primary Care Provider + Encounter Details Date Type Department Care Team (Late st Contact Info) Description 03/10/2024 Telephone [facility] [address] [place] [address] Blessing Addison Social History Tobacco Use Types Packs/Day Years Used Date Smoking Tobacco: Former Cigarettes Q uit: 2012 Smokeless Tobacco: Never Alcohol Use Standard Drinks/Week Comments No 0 (1 standard drink = 0.6 oz pur e alcohol) [facility] Utilities Answer Date Recorded In the [...] often do you attend chur ch or sikh services? Never 01/20/2024 Do you belong to any clubs o r organizations such as druze groups, unions, fraternal or athletic groups, or [...] place to sleep or slept in a jail (including now)? No 01/20/2024 Personal Safety Answer Date Recorded Have you ever been in or are you currently in a harmful physical or emotional relationship or is someone making you feel afraid or unsafe? 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 TD documented in this encounter Plan of Treatment Not on file documented as of this encounter Visit Diagnoses Not on filedocumented in this encounter Care Teams Trash Man Relationship Specialty Start Date End Date Cassius London MD [address] [facility] [place] [address] PCP - General 02/06/17 documented as of this encounter
--- OUTSIDE RECORDS SUMMARY | 2024-10-26 01:15 | XMS_ITS | Encounter Summary ---
Author Organization [facility] Address [address] [facility] [address] [place] [address] Care Team Providers Care Manager Spa Name Role Phone Cassius London MD Primary Care Provider + Reason for Visit * Reason Onset Date Comments Test Results 06/08/2023 Bg Miller HARDBOARD PANEL PRINTER P [facility] Clinical PoolMuch improved. Cont current plan of care Encounter Details Date Type Department Care Team (Late st Contact Info) Description 06/08/2023 Telephone [employer] Analyst [id number] [facility] [address] [place] [address] Joya Stubbs MA Test Results (Bg Miller HARDBOARD PANEL PRINTER P [facility] Clinical Pool/Much improved. Cont current plan of care/) Social History Tobacco Use Types Packs/Day Years [...] How often do you attend chur or anabaptist services? Never 01/12/2023 Do you belong to [...] slept in a half-way (including now)? 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 * Telephone Encounter - Joya Stubbs MA - 06/08/2023 10:40 AM CDT ----- Message from Bg Miller NP sent at 06/08/2023 10:31 AM CDT ----- Much improved. Cont current plan of care documented in this encounter Plan of Treatment Not on file documented as of this encounter Visit Diagnoses Not on filedocumented in this encounter Care Teams Manager Spa Relationship Specialty Start Date End Date Cassius London MD [address] [facility] [place] [address] PCP - General 02/06/17 documented as of this encounter
--- OUTSIDE RECORDS SUMMARY | 2024-10-26 01:15 | XMS_ITS | Encounter Summary ---
Author Organization [facility] Address [address] [place] [address] Phone Care Team Providers Care Supervisory Training Specialist Name Role Phone Cassius London MD Primary Care Provider + Encounter Details Date Type Department Care Team (Late st Contact Info) Description 06/18/2023 Orders Only [facility] [address] [place] [address] Brooke Haines NP 2 [facility] [address] [address] Skin neoplasm Social History Tobacco Use Types Packs/Day Years [...] often do you attend chur ch or mu-ism services? Never 01/12/2023 Do you [...] to sleep or slept in a senior care (including now)? 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 - 06/18/2023 4:58 PM CDT EPIC results best viewed via link to PDF [facility] [address] [place] [address] Bree., ??[address] [facility], [place] [address] ? [email or web address] Note to Patients: ??This report may contain a detailed description of human tissue sent by a health care provider to the laboratory for pathologic evaluation. ??The content of this report is essential for diagnosis and may provide important critical findings. ??This information may be unfamiliar to patients to review without a medical professional present. ?? It is advised that the patient review this report in the presence of a health care provider who can answer questions and explain the details. FINAL REPORT Patient Information: PATIENT NAME: ??CLARITA JUAN ? SEX: ??M ? : ??1940 (Age: 82) ? Specimen Information: COLLECTED: ??06/17/2023 ? RECEIVED: ??06/18/2023 ? REPORTED: ??06/18/2023 ? Submitting Physician Information: Brooke Haines, [address], Medical Office Building A, [address] ??[address], ? DERMATOPATHOLOGY REPORT RESULTS ?? DIAGNOSIS: SKIN, LEFT LOWER LATERAL LEG, SHAVE BIOPSY: ? BLUE NEVUS djd/lac By this signature, I attest that the above diagnosis is based upon my personal examination of the slides(and/or other material indicated in the diagnosis). Sara Gambino M.D. ?? Report Electronically Reviewed and Signed Out By ??Sara Gambino M.D. 06/18/2023 16:58:33 CLINICAL INFORMATION CHANGE IN LESION; BLACK; R/O AK, BCC, DN, SCC, SK. SPECIMEN DATA MICROSCOPIC DESCRIPTION: There is a proliferation of pigmented, dendritic melanocytes between collagen bundles within the dermis. (D22.9) GROSS DESCRIPTION: Received in a formalin-containing bottle is a superficial fragment of pale mg, finely scaling, and slightly wrinkled skin measuring 1.0 by 0.4 by 0.1 cm. The surgical margin is inked blue.The specimen bears a centrally located, brown, slightly raised area measuring 0.4 by 0.3 cm. The specimen is sectioned into 2 pieces and submitted entirely in a single cassette.Due to shrinkage, measurements may be different than those at the time of procedure. jn/mxf ICD-9 A; ZSD.281 ? Clerical Data A; 12289 The Characteristics of some immunohistochemical and immunofluorescence stains as well as in-situ hybridization tests were determined by the [facility] in ongoing manufacturing quality engineer and in compliance with regulations drawn from the Clinical Laboratory Improvement Act of 1988 (CLIA '88). These tests may rely on the use of analyte specific reagents that are subject to specific labeling requirements by the [place] FDA, and may only be performed in a facility that is certified by the [facility] as a high-complexity laboratory under CLIA '88. ??These tests are used for clinical purposes and are not investigational. ??For lab developed tests, the validation has been reviewed; the performance is considered acceptable for patient testing. 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
--- OUTSIDE RECORDS SUMMARY | 2024-10-26 01:15 | XMS_ITS | Encounter Summary ---
Author Organization [facility] Healthcare Address [address] [place] [address] Care Team Providers Care Cereal Popper Name Role Phone Cassius London MD Primary Care Provider + Encounter Details Date Type Department Care Team (Late st Contact Info) Description 10/13/2024 8:15 AM WARNING ANALYST [address] [address] Social History Tobacco Use Types Packs/Day Years Used Date Smoking Tobacco: Former Cigarettes Q uit: 2012 Smokeless Tobacco: Never Alcohol Use Standard Drinks/Week Comments No 0 (1 standard drink = 0.6 oz pur e alcohol) [facility] Utilities Answer Date Recorded In the past 12 months has [employer] electric, gas, oil, or water company threatened [...] often do you attend chur ch or caodaism services? Never 01/20/2024 Do you belong to any clubs o r organizations such as protestant groups, unions, fraternal or athletic groups, or [...] place to sleep or slept in a custodial (including now)? No 01/20/2024 Personal Safety Answer Date Recorded Have you ever been in or are you currently in a harmful physical or emotional relationship or is someone making you feel afraid or unsafe? Denies 01/20/2024 Sex and Gender Information Value Date Recorded Sex Assigned at Not on file Legal Sex Male 1:17 PM WARNING ANALYST Gender Identity Not on file Sexual Orientation Not on file documented as of this encounter Plan of Treatment Not on file documented as of this encounter Procedures Procedure Name Priority Date/Time Associated Diagnosis Comments CREATININE, WHOLE BLOOD STAT 10/13/2024 8:17 AM WARNING ANALYST documented in this encounter Results * (ABNORMAL) Creatinine, whole blood (10/13/2024 8:17 AM WARNING ANALYST) Creatinine, bld 1.66(H) 0.60 - 1.30 mg/dL Blood 10/13/2024 8:17 AM WARNING ANALYST 10/13/2024 8:26 AM WARNING ANALYST us Cassius London MD LAB BLOOD ORDERABLES Fin al Result [facility] [address] [facility] [place] [address] documented in this encounter Visit Diagnoses Not on filedocumented in this encounter Care Teams Cereal Popper Relationship Specialty Start Date End Date Cassius London MD [address] [facility] [place] [address] PCP - General 02/06/17 documented as of this encounter
--- OUTSIDE RECORDS SUMMARY | 2024-10-26 01:15 | XMS_ITS | Encounter Summary ---
Author Organization [facility] Healthcare Address [address] [place] [address] Care Team Providers Care Rangeland Management Specialist Name Role Phone Cassius London MD Primary Care Provider + Encounter Details Date Type Department Care Team (Late st Contact Info) Description 05/30/2024 Telephone [facility] [address] [place] [id number] Kortney Gonzáles Social History Tobacco Use Types Packs/Day Years Used Date Smoking Tobacco: Former Cigarettes Q uit: 2012 Smokeless Tobacco: Never Alcohol Use Standard Drinks/Week Comments No 0 (1 standard drink = 0.6 oz pur e alcohol) [facility] Utilities Answer Date Recorded In [...] often do you attend chur ch or bahai services? Never 01/20/2024 Do you belong to any clubs o r organizations such as latter-day groups, unions, fraternal or athletic groups, or [...] place to sleep or slept in a care home (including now)? No 01/20/2024 Personal Safety Answer Date Recorded Have you ever been in or are you currently in a harmful physical or emotional relationship or is someone making you feel afraid or unsafe? 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
--- OUTSIDE RECORDS SUMMARY | 2024-10-26 01:15 | XMS_ITS | Encounter Summary ---
Author Organization [facility] Address [address] [facility] [address] [place] [address] Phone Care Team Providers Care Heating Element Winder Name Role Phone Cassius London MD Primary Care Provider + Reason for Visit * Reason Comments Suspicious Skin Lesion * Consultation (Routine) - Closed Specialty Diagnoses / Procedures Referred By Italia valles Referred To Contact Plastic Surgery Diagnoses Skin lesion Cassius London MD [address] [facility] [facility] [place] [address] Phone: tel: fax: Patricia Donato MD [address] [facility] [place] [phone] [place] [address] Phone: tel: fax: Referral ID Status Reason Start Date Expiration Date V isits Requested Visits Authorized [id number] Closed Specialty Services Required 05/25/2023 06/23/2024 1 1 Encounter Details Date Type Department Care Team (Late st Contact Info) Description 06/17/2023 10:00 AM CDT Office Visit [facility] Surgery [address] [place] [address] Brooke Haines NP [address] [facility] [address] [place] [address] Skin neoplasm (Primary Dx) Social History Tobacco Use Types [...] often do you attend chur ch or christian services? Never 01/12/2023 Do you belong to [...] place to sleep or slept in a fci (including now)? 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 Either myself or our staff will call you in 7-10 days to review the results and discuss if additional treatment is needed. If you have bleeding from your biopsy site, hold firm pressure to the area for 15 min without release. This should stop bleeding, if not please contact our office. If it is after hours there area instructions on our voicemail how to reach the conveyor man provider. If significant bleeding persist or youhave immediate concerns, please precede to [facility] Emergency Department or your local Emergency Department. Please leave dressing over biopsy site on for 24 hours, then remove the dressing and clean the sites with gentle soap. You will want to apply Vaseline to open areas to keeping them moist until it hasfully healed. You can apply antibiotic ointment to the treated area for 5 days or until the scab falls off. Try to avoid allowing a dry scab from forming. It is important not to expose these areas tothe sun as it can cause scarring, hyper or hypopigmentation. It is important to wear sunscreen at all times even in the winter. Sun exposure is the leading cause of skin cancers. It is recommended that you wear minimum of a SPF of 30 but I recommend at using an SPF of 50. Make sure your sunscreen has UVA and UVB coverage. Sunscreens with zinc oxide are preferred. Be sure to cover all areas exposed to the sun including ears, upper eye lids, neck and chest as well as arms and hands. It is recommended that you reapply sunscreen every 80 minutes, after swimming or heavy exercising causing sweating. A product that I use and recommend is MAGNO SOSA sunscreen. It can easily be purchased from [employer], other online stores and most stores that sell skin care products. It comes in a varieties of forms including original, clear and tinted. The tinted sunscreen can be used by both men and woman, especially to the face without the appearance of a white layer. For woman, first use sunscreen then apply foundation over sunscreen. Additional applications can be applied over makeup. If you have sensitive skin, please try a test spot prior to using. If you have any questions or concerns do not hesitate to contact our office at [phone], through my chart or via my e-mail [email or web address] documented in this encounter Progress Notes * Brooke Haines, RUSSEL - 06/17/2023 10:00 AM CDT Images from the original note were not included. A remember to have consent signedPatient Name: Xavier Juan Medical Record Number (MRN): [id number] Date of (): 1940 Encounter Date: 06/16/2023 Prior hx of skin cancer: BCC and SCC HPI Xavier Juan is known to our clinic and last seen in January of 2022 post op excision BCC of his right cheek. He presents today as recommended by his primary care provider for further evaluation of dark lesionto his left lower lateral leg. He believes this lesion has been present for 20+ years and does not believe that has been change. 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 Current Functional Status This is a pleasant useful 82-year-old gentleman no functional deficits. Physical Exam: Focused skin exam: Left lower 3/3 rd of lateral leg flat black hyperpigmented lesion with irregular borders and asymmetry. Lesion measures 0.3 x 0.4 cm Assessment/Plan No diagnosis found. Plan Today I sent 1 shave biopsies for pathology. He will be called with results and aware that it will take 7-10 days for final pathology to be reported. We discussed the 3 most common types of skin cancer, BCC, SCC and melanoma. If biopsy is proven to be skin cancer, he will return for further treatment planning. He was instructed verbally and in writing to leave the bandages over biopsy sites for 1days at which time he can remove the bandage and clean the site with gentle soap. He was instructedto apply Vaseline or like ointment to the biopsy sites to keep them moist and avoid scabbing. He instructed to avoid sun exposure to the sites as it can cause hyper hypopigmentation. We also discussed the importance of sun protection and he was given some protection recommendations according to hisskin type. All of his questions were answered and he was instructed to contact the office if he has additionalquestions. I spent 20 minutes on this patient encounter which included review of medical records. Over half the time was spent with the patient face to face discussing the treatment plan, counseling and coordinating care. This document was transcribed using voice recognition software without a human customs collector. Itmay contain typographical, grammatical, and/or syntax errors. documented in this encounter Procedure Notes * Brooke Haines NP - 06/17/2023 10:00 AM CDT Procedures PROCEDURE: Shave Biopsy DIAGNOSIS: Neoplasm of uncertain behavior LOCATION: left lower leg DESCRIPTION OF PROCEDURE: Informed consent was obtained, including discussion of risks including bleeding, scarring, infection, and recurrence/persistence. [place] Protocol Time-Out performed. The lesional area was prepped with alcohol prior to infiltration with 1% lidocaine with epinephrine, 1:100,000 x 0.5 ml. The lesion was biopsied with an 11 blade scalpel, and a tangential specimen was obtained, taking approximately 1 mm of tissue beyond the visible border of the lesion. Hemostasis wasobtained with pressure. The specimen was placed in formalin and sent for routine histopathological evaluation. There were no complications. The wound was then dressed with sterile petrolatum and a guerrero rile dressing. Wound care instructions were provided in verbal and written form including a 24-hourcontact number in case of emergency. The patient will be notified by one of the clinical staff (upon return to clinic or by phone) regarding the biopsy results and the need for further treatment. documented in this encounter Plan of Treatment Not on file documented as of this encounter Results * Surgical pathology (06/17/2023 12:00 AM CDT) Tissue (Skin, shave biopsy) 06/17/2023 06/18/2023 6:39 AM CDT [facility] - 06/18/2023 4:58 PM CDT EPIC results best viewed via link to PDF [facility] [address], [place] [address] ? [email or web address] Note to Patients: ??This report [...] details. FINAL REPORT Patient Information: PATIENT NAME: ??XAVIER JUAN ? SEX: ??M ? : ??1940 (Age: 82) ? Specimen Information: COLLECTED: ??06/17/2023 ? RECEIVED: ??06/18/2023 ? REPORTED: ??06/18/2023 ? Submitting Physician Information: Brooke Haines, [facility] [address] [facility], [address], [address] [place] [address] ??[id number], ? DERMATOPATHOLOGY REPORT RESULTS ?? DIAGNOSIS: SKIN, [...] ICD-9 A; ZSD.281 ? Clerical Data A; 79061 The Characteristics of some immunohistochemical and immunofluorescence stains as well as in-situ hybridization tests were determined by the [facility] in ongoing quality audit representative and in compliance with regulations drawn from the Clinical Laboratory Improvement Act of 1988 (CLIA '88). These tests may rely on the use of analyte specific reagents that are subject to specific labeling requirements by the [place] FDA, and may only be performed in a facility that is certified by the [facility] as a high-complexity laboratory under CLIA '88. ??These tests are used for clinical purposes and are not investigational. ??For lab developed tests, the validation has been reviewed; the performance is considered acceptable for patient testing. Brooke Haines NP LAB PATHOLOGY ORD ERABLES Final Result [facility] [address] [place] [id number] documented in this encounter Visit Diagnoses Diagnosis Skin neoplasm- Primary Neoplasm of unspecified nature of bone, soft tissue, and skin Skin neoplasm Neoplasm of unspecified nature of bone, soft tissue, and skin documented in this encounter Administered Medications Inactive Administered Medications - up to 3 most recent administrations Medication Order MAR Action Action Date Dose Rate Site lidocaine-EPINEPHrine (XYLOCAINE with EPI) 2 %-1:100,000 injection 0.97 mL 0.97 mL, infiltration, Once, On Thu06/17/23 at 1100, For 1 dose, Indications: Administration of Local AnesthesiaIndications:Admi nistration of Local Anesthesia Given 06/17/2023 11:15 AM CDT 0.97 mL sodium bicarbonate 8.4 % (1 mEq/mL) injection 0.03 mEq 0.03 mEq, subcutaneous, Administer over 5 Minutes, Once, On Thu06/17/23 at 1100, For 1 doseIndications:Skin neoplasm Given 06/17/2023 11:15 AM CDT 0.03 mEq Other (Comment) documented in this encounter Discontinued Medications Medication Sig Discontinue Reason Start Date End Da te calcium carbonate (OS-PINEDA) 1,500 mg (600 mg of elemental calcium) tablet Take 1 tablet (1,500 mg total) by mouth daily. 07/29/2017 06/17/2023 amlodipine-atorvastati n (CADUET) 5-10 mg per tablet Take 1 tablet by mouth daily 06/17/2023 Trelegy Ellipta 100-62.5-25 mcg inhaler TAKE 1 INHALATION BY MOUTH DAILY 08/28/2021 06/17/2023 documented as of this encounter Historical Medications * This list may reflect changes made after this encounter. calcium citrate-vitamin D3 200 mg-3.125 mcg (125 unit) tablet Take 1 tablet by mouth daily simvastatin (ZOCOR) 10 mg tablet Take 1 tablet (10 mg total) by mouth nightly Trelegy Ellipta 200-62.5-25 mcg inhaler 05/06/2023 albuterol 2.5 mg /3 mL (0.083 %) nebulizer solution 06/04/2023 aspirin 81 mg enteric coated tablet Take 1 tablet (81 mg total) by mouth daily 01/20/2024 amLODIPine (NORVASC) 5 mg tablet 06/08/2023 01/22/2024 added in this encounter Care Teams Heating Element Winder Relationship Specialty Start Date End Date Cassius London MD [address] [place] [address] PCP - General 02/06/17 documented as of this encounter
--- OUTSIDE RECORDS SUMMARY | 2024-10-26 01:15 | XMS_ITS | Encounter Summary ---
Author Organization [facility] Healthcare Address [address] [place] [address] Care Team Providers Care [employer] Administrator Name Role Phone Cassius London MD Primary Care Provider + Reason for Referral * Cardiology (Routine) - Closed Specialty Diagnoses / Procedures Referred By Contac t Referred To Contact Diagnoses Near syncope Procedures MCT Mobile Cardiac Telemetry Event Monitor Event Monitor Sophia Leahy NP 1 [place] [address] Phone: tel: [address] [phone] Referral ID Status Reason Start Date Expiration Date Visits Re quested Visits Authorized [id number] Closed 02/01/2024 03/03/2024 1 1 Reason for Visit * Reason Comments Dizziness * Auth/Cert (Routine) Specialty Diagnoses / Procedures Referred By Contac t Referred To Contact Diagnoses COPD exacerbation (HCC) Near syncope Procedures na Referral ID Status Reason Start Date Expiration Date Visits Re quested Visits Authorized [id number] 1 1 Encounter Details Date Type Department Care Team (Latest Contact Info) Description 01/19/2024 8:49 PM CDT - 01/22/2024 3:13 PM CDT Hospital Encounter [facility] [address] [place] [id number] Jina Be MD 1 [place] [address] Sweetie Castillo MD [address] [facility] [place] [address] Near syncope (Primary Dx); COPD exacerbation (HCC) Discharge Disposition: Discharge to home or self care Social History Tobacco Use Types Packs/Day Years Used Date Smoking Tobacco: Former Cigarettes Q uit: 2011 Smokeless Tobacco: Never Alcohol Use Standard Drinks/Week Comments No 0 (1 standard drink = 0.6 oz pur e alcohol) [facility] Utilities Answer Date Recorded In the past 12 months has th e [employer], gas, oil, or water [employer] threatened to shut off services in your [...] week 01/20/2024 How often do you attend [facility] or yazidi services? Never 01/20/2024 Do you belong to any clubs o r organizations such as baptism groups, unions, fraternal or athletic groups, or [...] on file Legal Sex Male 1:17 PM [employer] Gender Identity Not on file Sexual Orientation [...] Mass Index 30.26 01/20/2024 1:04 AM CDT documented in this encounter Discharge Summaries * Sophia Leahy NP - 01/22/2024 11:54 AM CDT Inpatient Discharge Summary Patient Name - Clarita Juan Patient Age - 83 yrs Patient - [id number] [facility] - [id number] Document Creation Date: 01/22/2024 Admitting Provider, MD: Jina Be MD Discharge Provider, : Sweetie Castillo MD Primary Care Physician at Discharge: Cassius London MD [phone] Admission Date: 01/19/2024 Discharge Date/time: 01/22/2024 Admission Location: [facility] LOS - LOS: 3 days DETAILS OF HOSPITAL STAY Hospital Problems/Diagnoses Principal Problem: Near syncope Reason for Hospitalization: Near syncope Hospital Course: 83 yo male with history of COPD, afib, CKD presenting with complaint of having 5 near fainting spells while driving. He felt lightheaded and that he was going to pass out. He did not lose consciousness. O2 was 89% and heart rate was in the 110s. He mentions that he has a chronic cough and is occasionally wheezing. He uses his breathing treatments sporadically and does not smoke. He denies having chest pain, palpitations, headache, extremity numbness or weakness, or slurred speech. Discharge Details Physical Exam at Discharge: Discharge Condition: good Pulse: 72 Resp: 18 BP: 139/75 Temp: 36.4 ??C (97.6 ??F) Weight: 87.6 kg (193 lb 3.2 oz) GENERAL APPEARANCE: The patient is alert, cooperative and in no acute distress. HEENT: Head is normocephalic, atraumatic. Pupils are equal and reactive. The nares are patent. Oropharynx is clear without lesions. NECK: Supple with midline trachea HEART: Regular rate and rhythm LUNGS: diminished to auscultation bilaterally. No crackles or wheezes are heard. ABDOMEN: Soft, nontender, nondistended. No masses appreciated. EXTREMITIES: Without cyanosis, clubbing or edema. Pulses equal bilaterally. NEUROLOGICAL: Oriented x4. No focal deficits appreciated. SKIN: Warm and dry without any rashes/lesions Discharge Disposition: Discharge to home or self care Code Status at Discharge: Full Code Active Issues & Recommended Plan for Follow-up: Near syncope - Patient reports episodes of near syncope, mostly while driving in past few weeks - EKG on admission without acute changes to explain dizziness - US carotids negative - CT head negative - TTE: grade I diastolic dysfunction, LVEF 59% - BLED negative - Cardiology consulted - PT/OT cleared for home independently - Event monitor ordered at discharge - Follow up with Cardiology scheduled Acute hypoxic respiratory failure, improved COPD with exacerbation - Noted congestion with wheezing and coarse lung sounds on admission - CXR negative for infiltrate - Ceftriaxone (01/18 - ) - Prednisone (01/18 - ) - Aggressive pulmonary hygiene - 01/20: Weaned to room air. Lung sounds improved but still with frequent congested, minimally productive cough. Added mucinex BID Paroxysmal atrial fibrillation Tachyarrhythmias Hypertension/hyperlipidemia - Continue - Cardiology consulted for possible atrial tachycardia - Discontinue home amlodipine - Increased metoprolol to 50mg BID - Significant decrease in caffeine intake (patient and drink 2 pots coffee daily) - DC on 30 day event monitor - Follow up with cardiology 3-4 weeks ELI on CKD stage IIIa - Cr baseline 1.3-1.5 - Cr on admission 1.44 - Trend Cr: 1.44, 1.54, 1.86 - NS bolus over 4 hours today - Repeat Cr 1.6 - Avoid nephrotoxic medications Allergies: Miguel A inhibitors and Acetaminophen Discharge Medications: Your medication list START taking these medications Instructions Last Dose Given Next Dose Due predniSONE 20 mg tablet Commonly known as: DELTASONE Start taking on: January 23, 2024 40 mg, oral, Daily CHANGE how you take these medications Instructions Last Dose Given Next Dose Due metoprolol tartrate 50 mg immediate release tablet Commonly known as: LOPRESSOR What changed: medication strength how much to take Another medication with the same name was removed. Continue taking this medication, and follow the directions you see here. 50 mg, oral, 2 times daily CONTINUE taking these medications Instructions Last Dose Given Next Dose Due apixaban 5 mg tablet Commonly known as: Eliquis 5 mg, oral, Every 12 hours calcium citrate-vitamin D3 200 mg-3.125 mcg (125 unit) tablet 1 tablet, oral, Daily cholecalciferol 5,000 unit tablet Commonly known as: VITAMIN D-3 5,000 Units, oral, Daily docusate sodium 100 mg capsule Commonly known as: Colace 100 mg, oral, 2 times daily irbesartan-hydroCHLOROthiazide 300-12.5 mg per tablet Commonly known as: AVALIDE 1 tablet, oral, Daily montelukast 10 mg tablet Commonly known as: SINGULAIR 10 mg, oral, Nightly One-A-Day Men's Multivitamin 400-20-300 mcg tablet Doctor's comments: Generic drug: bnvldhiv-jfi-fbtnd-vit K-lycop Take one by mouth one time per day ProAir HFA 90 mcg/actuation inhaler Doctor's comments: Generic drug: albuterol HFA 90 mcg albuterol 2.5 mg /3 mL (0.083 %) nebulizer solution simvastatin 10 mg tablet Commonly known as: ZOCOR 1 tablet, oral, Nightly Trelegy Ellipta 200-62.5-25 mcg inhaler Generic drug: aljvxszcfhz-ybvxqxlrm-cvezeems STOP taking these medications amLODIPine 5 mg tablet Commonly known as: NORVASC Where to Get Your Medications These medications were sent to [id number] - [place], [place] - [address] [facility] [address], [facility] [id number] metoprolol tartrate 50 mg immediate release tablet predniSONE 20 mg tablet Time Spent in Discharge Process: I have spent 50 minutes on discharge planning activities. Time spent was on Coordination of care, Follow up , Counselling with patient/family, discharge exam, and parent/patient education Test Results Pending at Discharge (If Blank, None Found): Operative Procedures Performed (If Blank, None Found): Outpatient Follow-Up: Future Appointments Date Time Provider Department Center 05/31/2024 10:[address] 12/22/2024 9:30 AM Bg Miller NP [facility] [address] PSA Contact Information for Follow-ups Cassius London MD Specialty: Internal Medicine Relationship: PCP - General [address] [place] [address] [place] [address] Next Steps: Follow up on 01/28/2024 Instructions: 11:15 AM with Mirian Curran NP Please schedule an appointment with the following provider(s): Cassius London MD [address] [place] [address] [place] [address] Follow up on 01/28/2024 11:15 AM with Mirian Curran NP ANCILLARY INFORMATION Other Procedures & Diagnostic Tests: Transthoracic Echo (TTE) Complete W Doppler/CF Result Date: 01/20/[address] [place] [address] Echocardiogram Report Patient Name: CLARITA JUAN : 1940 Study Date: 01/20/2024 10:38:07 AM Gender: M Tech: RUSSEL Location: [id number] Ref Provider: JOEY PARSON Height(Cm): 170 BSA: 2.05 Weight(Kg): 88.9 Quality: Definity contrast agent used to enhance endocardial border definition Order Provider: JOEY PARSON PROCEDURES: Echocardiographic Report: Transthoracicechocardiogram with complete 2D, M-Mode, color Doppler examination and contrast. INDICATIONS: Syncope. Measurements: 2D/M Mode Doppler Measurement Value Normal Range Measurement Value Normal Range EF Teich MM 59.0 [ 52.0 - 72.0 ] percent JURGEN Vmax 3.14 cm2 LVIDd MM 5.80 [ 4.20 - 5.80 ] cm AV Mean PG 6 mmHg LVIDs MM 4.00 [ 2.50 - 4.00 ] cm AV Peak Emmanuel 1.21 [ 1.00 - 1.70 ] m/s LVPWd MM 0.90 [ 0.60- 1.00 ] cm AV VTI 24.66 cm IVSd MM 1.00 [ 0.60 - 1.00 ] cm LVOT Diam 2.29 cm LA Dimension MM 2.88 [ 3.00 - 4.00 ] cm LVOT Peak Emmanuel 0.92 [ 0.70 - 1.10 ] m/s AoR Diam MM 3.25 [ 3.10 - 3.70 ] cm LVOT VTI 18.92 cm ACS MM 1.27 [ 1.50 - 2.60 ] cm MV E Peak Emmanuel 0.58 [ 0.60 - 1.30 ] m/s MV A Peak Emmanuel 0.92[ 1.00 - 1.20 ] m/s MV Mean PG 2 mmHg MV PHT 42 [ 20 - 100 ] msec MVA 5.30 MV Decel Time 167 [ 104 - 258 ] msec PV Peak Emmanuel 0.81 [ 0.40 - 0.80 ] m/s TR Peak Emmanuel 2.41 [ 1.00 - 2.80 ] m/s TR Peak PG 23mmHg RVSP 28.00 [ 10.00 - 36.00 ] mmHg E` 0.07 m/s E/E` 8.88 [ <= 10.00 ] PA Pressure 28.00 [ 10 .00 - 36.00 ] mmHg Measurement Value Normal Range Measurement Value Normal Range 2D/M Mode Doppler- FINDINGS: Atrial Septum: The atrial septum is not well visualized. Left Ventricle: Normal left ventricular systolic function with no focal wall motion abnormalities. Normal left ventricular size. Normal left ventricular wall thickness. Impaired diastolic relaxation Grade I. Ejection fraction is measured at 59 %. Left Atrium: The left atrium is normal in size. Right Ventricle: Normal right ventricular size. Normal right ventricular systolic function. Right Atrium: The right atrium is normal insize. Aortic Valve: Normal structure of the aortic valve. Mitral Valve: Normal structure of the mitral valve. Pulmonic Valve: Pulmonic valve not well visualized. Tricuspid Valve: Normal structure of the tricuspid valve. Right Ventricular Systolic Pressure could not be estimated due to inadequate visualization of TR jet. Pericardium: Normal pericardium with no significant pericardial effusion. Aorta: Normal aortic root. IVC: Normal size and normal respiratory collapse consistent with normal right atrial pressure (<5 mmHg). CONCLUSIONS: Normal left ventricular systolic function with no focalwall motion abnormalities. Normal left ventricular size. Normal left ventricular wall thickness. Impaired diastolic relaxation Grade I. Ejection fraction is measured at 59 %. Electronically Signed By: Raffy Oneil 2024-01-20 12:59:03 CDT US Carotids Duplex Bilateral Result Date: 01/20/2024 EXAM DESCRIPTION: US CAROTIDS DUPLEX BILATERAL REASON FOR STUDY: recurrent near syncope TECHNIQUE: Horowitz scale, color Doppler and spectral Doppler imaging were performed. Velocity criteria are extrapolated from diameter as defined by the Society of Radiologists in Ultrasound Consensus Conference. All velocity measurements are in cm/sec. COMPARISON: None available. FINDINGS: Right: Atherosclerotic plaque at the carotid bifurcation and proximal cervical internal carotid artery. Distal CCA Peak Systolic Velocity: 87.4 Distal CCA End Diastolic Velocity: 14.4 Peak ICA Systolic Velocity: 76.6 ICA End Diastolic Velocity: 16.5 Peak ICA/CCA Systolic Ratio: 0.88 Right Vertebral Artery: Antegrade direction of flow. Left: Atherosclerotic plaque at the carotid bifurcation and proximal cervical internalcarotid artery. Distal CCA Peak Systolic Velocity: 99.2 Distal CCA End Diastolic Velocity: 23 Peak ICA Systolic Velocity: 81.4 ICA End Diastolic Velocity: 19.2 Peak ICA/CCA Systolic Ratio: 0.82 Left Vertebral Artery: Antegrade direction of flow. IMPRESSION: Velocities correspond to a less than 50 percent diameter stenosis of the right ICA. Velocities correspond to a less than 50 percent diameter stenosis of the left ICA. Antegrade direction of flow of the bilateral vertebral arteries. REFERENCE: Consensus Panel Horowitz-Scale and Doppler US Criteria for Diagnosis of ICA Stenosis. No stenosis: ICAPSV <125*, 0 percent plaque, ICA/CCA PSV Ratio <2.0, ICA EDV <40*. <50 percent stenosis: ICA PSV <125*, <50 percent plaque, ICA/CCA PSV Ratio <2.0, ICA EDV <40*. 50-69 percentstenosis: ICA PSV 125-230*, >=50 percent plaque, ICA/CCA PSV Ratio 2.0-4.0, ICA EDV 40-100*. >=70 percent but less than near occlusion >230, >=50 percent plaque, ICA/CAA PSV Ratio >4.0, ICA EDV >100*. *cm/sec Plaque estimate (diameter reduction) with horowitz-scale and color Doppler US. RSNA 2002 THIS IS AN ELECTRONICALLY VERIFIED FINAL REPORT 01/20/2024 12:48 PM - Electronically signed by Jhonny Brizuela D.O. AP: [email or web address] Report ID: [id number] Reading Location: [id number] CT Head WO Contrast Result Date: 01/19/2024 EXAM DESCRIPTION: CT HEAD WO CONTRAST REASON FOR STUDY: Dizziness, persistent/recurrent, cardiac orvascular cause suspected Pt to ED for feeling like he was going to pass out multiple times today.No hx of fx No surgery or stroke No hx of cancer TECHNIQUE: Axial images acquired through the brainwithout intravenous contrast. Images stored on PACS. Automated exposure control was used as a dose optimization technique for this examination. COMPARISON: None. FINDINGS: BRAIN: Ventricles, cisternsand sulci are symmetric and mildly prominent, commensurate with age. Horowitz-white matter differentiation appears preserved. No intracranial hemorrhage is evident. EXTRA-AXIAL SPACES: No fluid collections. No mass effect. CALVARIUM: Appears intact. SINUSES/MASTOIDS: No fluid or mucosal thickening. ORBITS: Status post lens extractions. OTHER: No other significant abnormality. IMPRESSION: No acute intracranial findings. THIS IS AN ELECTRONICALLY VERIFIED FINAL REPORT 01/19/2024 10:06 PM - Electronically signed by Lane Flores M.D..OCompa Ayala M.D., Lane.O. MW: JÚNIOR Report ID: [id number] Reading Location: [id number] XR Chest 1 Vw Portable Result Date: 01/19/2024 EXAM DESCRIPTION: XR CHEST 1 VIEW REASON FOR STUDY: dizziness feeling like he was going to pass out multiple times today. TECHNIQUE: 1 radiographic view(s) of the chest. COMPARISON: 05/18/2023 01/10/2023 FINDINGS: Streaky opacities in the right base favors atelectasis. No new focal consolidation,pneumothorax, pulmonary edema, or pleural effusion. Mediastinal contours are stable. IMPRESSION: Streaky opacities in the right base favors atelectasis. THIS IS AN ELECTRONICALLY VERIFIED FINAL REPORT 01/19/2024 9:50 PM - Electronically signed by Thea Ramirez M.D. QX: QX T: 01/19/2024 9:50 PM Report ID: [id number] Reading Location: [id number] ECG 12 lead Result Date: 01/19/2024 Vent Rate: 74 bpm RR Interval: 810 msec UT Interval: 141 msec QRS Duration: 105 msec QT Interval: 359 msec QTC Interval: 386 msec P-R-T Al[place]: 10 - -5 - 77 degrees IMPRESSION: SINUS RHYTHM WITH OCCASIONAL VENTRICULAR PREMATURE COMPLEXES NONSPECIFIC T-WAVE ABNORMALITY BORDERLINE ECG Compared to priorEKG, heart rate has decreased Sinus rhythm replaced atrial fibrillation PVCs are new ElectronicallySigned By: Reji Maloney MD Recent Labs: Recent Labs Lab Units 01/22/24 0519 01/21/24 0523 01/20/24 0824 WBC K/cumm 16.8* 21.3* 11.8* HEMOGLOBIN g/dL 12.0* 12.8* 13.4 HEMATOCRIT % 36.6* 38.2* 40.3 PLATELETS K/cumm 282 316 305 Recent Labs Lab Units 01/22/2451801/21/2452201/20/2482301/19/24 2125 WBC K/cumm 16.8* 21.3* 11.8* 10.3* HEMOGLOBIN g/dL 12.0* 12.8* 13.4 13.6 HEMATOCRIT % 36.6* 38.2* 40.3 41.1 PLATELETS K/cumm 282 316 305 306 NEUTROS PCT % -- -- -- 68.1 LYMPHS PCT % -- -- -- 21.7 MONOS PCT % -- -- -- 5.9 EOS PCT % -- -- -- 3.4 Recent Labs Lab Units 01/22/2451801/21/2452201/20/2482301/19/24 1403 SODIUM mmol/L 138 136 137 136 POTASSIUM PLASMA mmol/L 3.9 4.1 3.8 4.9 CHLORIDE mmol/L 102 96* 99 99 CO2 mmol/L 24 25 BUN SERUM mg/dL 45* 48* 28* 27* CREATININE mg/dL 1.60* 1.86* 1.54* 1.44* [id number] mL/min/1.73 m2 43 36 45 49 GLUCOSE mg/dL 102 128 187 109 CALCIUM mg/dL 8.8 9.7 9.9 9.9 ALBUMIN g/dL -- -- 3.7 3.5 PHOSPHORUS PLASMA mg/dL 3.4 3.3 3.0 -- Recent Labs Lab Units 01/22/2451801/21/2452201/20/2482301/19/24 1403 SODIUM mmol/L 138 136 137 136 POTASSIUM PLASMA mmol/L 3.9 4.1 3.8 4.9 CHLORIDE mmol/L 102 96* 99 99 CO2 mmol/L 25 ANIONGAP mmol/L 12 13 15 12 GLUCOSE mg/dL 102 128 187 109 BUN SERUM mg/dL 45* 48* 28* 27* CREATININE mg/dL 1.60* 1.86* 1.54* 1.44* CALCIUM mg/dL 8.8 9.7 9.9 9.9 ALBUMIN g/dL -- -- 3.7 3.5 ALK PHOS Units/L -- -- 109 108 ALT Units/L -- -- 14 15 AST Units/L -- -- 14 27 BILIRUBIN TOTAL mg/dL -- -- 0.3 0.4 Recent Labs Lab Units 01/20/24 0824 01/19/24 1403 ALK PHOS Units/L 109 108 BILIRUBIN TOTAL mg/dL 0.3 0.4 BILIRUBIN DIRECT mg/dL <0.2 -- TOTAL PROTEIN g/dL 7.3 7.3 ALT Units/L 14 15 AST Units/L 14 27 Recent Labs Lab Units 01/22/24 0519 01/21/24 0523 01/20/24 0824 MAGNESIUM mg/dL 2.2 2.4 1.8 Lab Results Component Value Date GLUCOSE 102 01/22/2024 GLUCOSE 128 01/21/2024 GLUCOSE 187 01/20/2024 Implant: Implants Type Not Specified [employer] [id number] Progrip [id number] Self Fixate Flat Sheet Mesh Surgical Jose Antonio Pet Latex Free - [id number] - Implanted (Left) Abdomen Inventory item: [employer] Progrip [id number] Self Fixate Flat Sheet Mesh Surgical Jose Antonio Pet Latex Free [id number] Model/Cat number: [id number] 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 Question Answer Comment ([facility]) Diet Type Restricted Fat / Sodium Restriction: Low Fat, Low Chol, Low Na Fat / Sodium Restriction: 2 GM Sodium 01/20/24 0826 Anticoagulation Indication: INR: No results found for requested labs within last 30 days. Warfarin Administrations (last 168 hours) None Oxygen Status: O2 Therapy for the past 12 hrs: O2 Therapy O2 Flow Rate (L/min) 01/22/24 1035 None (Room air) -- 01/22/24 0748 Supplemental oxygen 3 L/min 01/22/24 0700 Supplemental oxygen 3 L/min 01/22/24 0600 Supplemental oxygen 3 L/min Wound Care Instructions Other Instructions Call provider for: Temperature -Temperature greater than 101 degrees F Call provider for: difficulty breathing or chest pain Call provider for: extreme fatigue Call provider for: hives Call provider for: persistent dizziness or light-headedness Call provider for: persistent nausea or vomiting Call provider for: redness, tenderness, or signs of infection (pain, swelling, redness, odor or green/yellow discharge around incision site) Call provider for: severe uncontrolled pain Call provider for: headache, visual disturbances, weakness and speech changes Event Monitor Choose duration of testin Days Please select the performing department: [facility] Active LDAs (If Blank, None Found): Peripheral IV 01/19/24 20 G Distal;Posterior;Right Forearm (Active) Placement Date/Time: 01/19/242245 Type: Angiocath Size (Gauge): 20 G Location Orientation: Distal;Posterior;Right Location: Forearm Site Prep: Chlorhexidine Technique: Anatomical landmarks Insertedby: KB Insertion attempts: 1 Patient Aye... Patient Emergency Contact: Primary Emergency Contact: Mel Juan Immunization Status at Discharge Immunization History Administered Date(s) Administered Influenza, Split 07/10/2009, 08/09/2010 Influenza, Trivalent, High Dose, Split, Preservative Free, Intramuscular 09/04/2014, 07/31/2015, 08/06/2016, 08/12/2017 Influenza, Trivalent, Intramuscular 08/09/2011 Influenza, Unspecified 08/21/2022, 08/13/2023 Pfizer SARS-CoV-2 Monovalent Vaccination (12+ Yrs) PURPLE 01/09/2021, 02/06/2021, 09/11/2021 Pneumococcal Conjugate PCV 13 12/04/2014 Pneumococcal Polysaccharide PPV23 03/26/2009 Td, adsorbed 03/26/2009 Tdap 01/30/2017 ZOSTER LIVE 12/04/2014 Sophia Leahy NP Cosigned by Sweetie Castillo MD at 01/22/2024 5:30 PM CDT documented in this encounter Discharge Instructions * Attachments The following attachments cannot be sent through Care Everywhere. * Prednisone (By mouth) (Turkish) documented in this encounter Medications at Time of Discharge [...] (10 mg total) by mouth nightly 09/09/2021 beyrszdq-igd-neiey- vit K-lycop (ONE-A-DAY MEN'S MULTIVITAMIN) 400-20-300 mcg tablet Take one by mouth one time per day 0 0 08/23/2008 simvastatin (ZOCOR) 10 mg tablet Take 1 tablet (10 mg total) by mouth nightly Trelegy Ellipta 200-62.5-25 mcg inhaler 05/06/2023 predniSONE (DELTASONE) 20 mg tabletIndications:A cutely Deteriorating COPD Take 2 tablets (40 mg) by mouth daily for 2 days 4 tablet 01/23/2024 4 apixaban (Eliquis) 5 mg tablet Take 1 tablet (5 mg total) by mouth every 12 (twelve) hours 180 tablet 3 01/05/2024 4 irbesartan-hydroCHL OROthiazide (AVALIDE) 300-12.5 mg per tabletIndications:h ypertension Take 1 tablet by mouth daily 90 tablet 3 02/26/2023 4 metoprolol tartrate (LOPRESSOR) 50 mg immediate release tablet Take 1 tablet (50 mg total) by mouth 2 (two) times a day 60 tablet 1 01/22/2024 4 documented as of this encounter Ordered Prescriptions Prescription Sig Dispense Quantity Refills Last Filled Start Date End Date predniSONE (DELTASONE) 20 mg tabletIndications:A cutely Deteriorating COPD Take 2 tablets (40 mg) by mouth daily for 2 days 4 tablet 01/23/2024 4 metoprolol tartrate (LOPRESSOR) 50 mg immediate release tablet Take 1 tablet (50 mg total) by mouth 2 (two) times a day 60 tablet 1 01/22/2024 4 documented in this encounter Discharge Disposition Disposition Code Departure Means Destination Comment s Discharge to home or self care documented in this encounter Progress Notes * Joey Parson, MANAGER [facility]AN[employer] - 01/21/2024 2:15 PM CDT General Medicine Daily Progress [facility] SUBJECTIVE Chief complaint of dizziness. 83 yo male with history of COPD, afib, CKD presenting with complaint of having 5 near fainting spells while driving. He felt lightheaded and that he was going to pass out. He did not lose consciousness. O2 was 89% and heart rate was in the 110s. He mentions that he has a chronic cough and is occasionally wheezing. He uses his breathing treatments sporadically and does not smoke. He denies having chest pain, palpitations, headache, extremity numbness or weakness, or slurred speech. Interval History: No acute events overnight. Weaned to room air and saturating well currently. Still with congested cough, mucinex added to assist with expectoration. Cleared PT/OT for home. Still with occasional tachyarrhythmias, BLED obtained - negative. WBC today 21(11) - likely secondary to steroid administration but will trend in AM. Will discharge with 30 day monitor, hopeful for tomorrow. OBJECTIVE Vitals: 24hr Min/Max: Temp Min: 36.1 ??C (96.9 ??F) Max: 36.9 ??C (98.4 ??F) Pulse Min: 60 Max: 104 BP Min: 118/56 Max: 133/76 Resp Min: 18 Max: 18 SpO2 Min: 87 % Max: 97 % Most Recent : Vitals: 01/21/24 1129 BP: 123/64 Pulse: 60 Resp: 18 Temp: 36.9 ??C (98.4 ??F) SpO2: 93% I/O last 2 completed shifts: In: 840 [P.O.:840] Out: 500 [Urine:500] I/O this shift: In: 200 [P.O.:200] Out: - Physical Exam: GENERAL APPEARANCE: The patient is alert, cooperative and in no acute distress. HEENT: Head is normocephalic, atraumatic. Pupils are equal and reactive. The nares are patent. Oropharynx is clear without lesions. NECK: Supple with midline trachea HEART: Regular rate and rhythm LUNGS: diminished to auscultation bilaterally. No crackles or wheezes are heard. ABDOMEN: Soft, nontender, nondistended. No masses appreciated. EXTREMITIES: Without cyanosis, clubbing or edema. Pulses equal bilaterally. NEUROLOGICAL: Oriented x4. No focal deficits appreciated. SKIN: Warm and dry without any rashes/lesions Lab/Current Medication Review: Recent Results (from the past 24 hour(s)) CBC without differential Collection Time: 01/21/24 5:23 AM Result Value Ref Range WBC 21.3 (H) 3.8 - 9.9 K/cumm Hgb 12.8 (L) 13.0 - 17.5 g/dL Hct 38.2 (L) 38.9 - 50.3 % Plt 316 150 - 400 K/cumm MPV 9.2 9.1 - 12.3 fL RBC 4.00 (L) 4.30 - 5.80 M/cumm MCV 95.5 81.3 - 96.4 fL MCH 32.0 27.1 - 33.3 pg MCHC 33.5 32.3 - 35.7 g/dL RDW CV 13.6 11.1 - 14.9 % RDW SD 47.8 35.7 - 48.1 fL NRBC abs 0.00 0.00 - 0.01 K/cumm Basic metabolic panel Collection Time: 01/21/24 5:23 AM Result Value Ref Range Sodium 136 135 - 145 mmol/L Potassium, pl 4.1 3.3 - 4.9 mmol/L Chloride 96 (L) 97 - 110 mmol/L CO2 27 22 - 32 mmol/L Anion gap 13 2 - 15 mmol/L BUN 48 (H) 6 - 25 mg/dL Creatinine 1.86 (H) 0.80 - 1.30 mg/dL Glucose 128 70 - 199 mg/dL Calcium 9.7 8.5 - 10.3 mg/dL Magnesium Collection Time: 01/21/24 5:23 AM Result Value Ref Range Magnesium 2.4 1.4 - 2.5 mg/dL Phosphorus Collection Time: 01/21/24 5:23 AM Result Value Ref Range Phosphorus, pl 3.3 2.3 - 4.5 mg/dL eGFR Collection Time: 01/21/24 5:23 AM Result Value Ref Range eGFR 36 mL/min/1.73 m2 US Vein Duplex Lower Extremity Bilateral Complete Result Date: 01/21/2024 Narrative: EXAM DESCRIPTION: US VEIN DUPLEX LOWER EXTREMITY BILATERAL COMPLETE REASON FOR STUDY: leukocytosis, tachycardia, leg swelling TECHNIQUE: Grayscale, color and spectral Doppler imaging of the deep venous system of the bilateral lower extremities was performed. Images stored on PACS. COMPARISON: None available FINDINGS: The bilateral common femoral, visualized profunda femoral, superficial femoral, and popliteal veins are readily compressible bilaterally with no intraluminal thrombus ongray scale images. There is normal color and spectral Doppler signal, including augmentation. Visualized calf veins are patent. Greater saphenous vein appears patent. IMPRESSION: No lower extremity de ep venous thrombosis. THIS IS AN ELECTRONICALLY VERIFIED FINAL REPORT 01/21/2024 9:30 AM - Electronically signed by Mitchel Allen M.D. AG: [facility] ID: [id number] Reading Location: [id number] Transthoracic Echo (TTE) Complete W Doppler/CF Result Date: 01/20/2024 Narrative: [place] [address] Echocardiogram Report Patient Name: CLARITA JUAN : 1940 Study Date: 01/20/2024 10:38:07 AM Gender: M Tech: MANAGER BANQUET Location: [id number] Ref Provider: JOEY PARSON Height(Cm): 170 BSA: 2.05 Weight(Kg): 88.9 Quality: Definity contrast agent used to enhance endocardial border definition Order Provider: JOEY PARSON PROCEDURES: Echocardiographic Report: Transthoracic echocardiogram with complete 2D, M-Mode, color Doppler examination and contrast. INDICATIONS: Syncope. Measurements: 2D/M Mode Doppler Measurement Value Normal Range Measurement Value Normal Range EF Teich MM 59.0 [ 52.0 - 72.0 ] percent JURGEN Vmax 3.14 cm2 LVIDd MM 5.80 [ 4.20 - 5.80 ] cm AV Mean PG 6 mmHg LVIDs MM 4.00 [ 2.50 - 4.00 ] cm AV Peak Emmanuel 1.21 [ 1.00 - 1.70 ] m/s LVPWd MM0.90 [ 0.60 - 1.00 ] cm AV VTI 24.66 cm IVSd MM 1.00 [ 0.60 - 1.00 ] cm LVOT Diam 2.29 cm LA Dimension MM 2.88 [ 3.00 - 4.00 ] cm LVOT Peak Emmanuel 0.92 [ 0.70 - 1.10 ] m/s AoR Diam MM 3.25 [ 3.10 - 3.70 ] cm LVOT VTI 18.92 cm ACS MM 1.27 [ 1.50 - 2.60 ] cm MV E Peak Emmanuel 0.58 [ 0.60 - 1.30 ] m/s MV A Peak Emmanuel 0.92 [ 1.00 - 1.20 ] m/s MV Mean PG 2 mmHg MV PHT 42 [ 20 - 100 ] msec MVA 5.30 MV Decel Time 167 [ 104 - 258 ] msec PV Peak Emmanuel 0.81 [ 0.40 - 0.80 ] m/s TR Peak Emmanuel 2.41 [ 1.00 - 2.80 ] m/s TR Peak PG 23 mmHg RVSP 28.00 [ 10.00 - 36.00 ] mmHg E` 0.07 m/s E/E` 8.88 [ <= 10.00 ] PA Pressure 28.00 [ 10.00 - 36.00 ] mmHg Measurement Value Normal Range Measurement Value Normal Range 2D/M Mode Doppler - FINDINGS: Atrial Septum: The atrial septum is not well visualized. Left Ventricle: Normal left ventricular systolic function with no focal wall motion abnormalities. Normal left ventri cular size. Normal left ventricular wall thickness. Impaired diastolic relaxation Grade I. Ejectionfraction is measured at 59 %. Left Atrium: The left atrium is normal in size. Right Ventricle: Normal right ventricular size. Normal right ventricular systolic function. Right Atrium: The right atrium is normal in size. Aortic Valve: Normal structure of the aortic valve. Mitral Valve: Normal structure of the mitral valve. Pulmonic Valve: Pulmonic valve not well visualized. Tricuspid Valve: Normalstructure of the tricuspid valve. Right Ventricular Systolic Pressure could not be estimated due toinadequate visualization of TR jet. Pericardium: Normal pericardium with no significant pericardialeffusion. Aorta: Normal aortic root. IVC: Normal size and normal respiratory collapse consistent with normal right atrial pressure (<5 mmHg). CONCLUSIONS: Normal left ventricular systolic functionwith no focal wall motion abnormalities. Normal left ventricular size. Normal left ventricular wall thickness. Impaired diastolic relaxation Grade I. Ejection fraction is measured at 59 %. Electronically Signed By: Raffy Jolleym 2024-01-20 12:59:03 CDT US Carotids Duplex Bilateral Result Date: 01/20/2024 Narrative: EXAM DESCRIPTION: US CAROTIDS DUPLEX BILATERAL REASON FOR STUDY: recurrent near syncope TECHNIQUE: Horowitz scale, color Doppler and spectral Doppler imaging were performed. Velocity criteria are extrapolated from diameter as defined by the Society of Radiologists in Ultrasound Consensus Conference. All velocity measurements are in cm/sec. COMPARISON: None available. FINDINGS: Right: Atherosclerotic plaque at the carotid bifurcation and proximal cervical internal carotid artery. Distal CCA Peak Systolic Velocity: 87.4 Distal CCA End Diastolic Velocity: 14.4 Peak ICA Systolic Velocity: 76.6 ICA End Diastolic Velocity: 16.5 Peak ICA/CCA Systolic Ratio: 0.88 Right Vertebral Artery: Anteg rade direction of flow. Left: Atherosclerotic plaque at the carotid bifurcation and proximal cervical internal carotid artery. Distal CCA Peak Systolic Velocity: 99.2 Distal CCA End Diastolic Velocity: 23 Peak ICA Systolic Velocity: 81.4 ICA End Diastolic Velocity: 19.2 Peak ICA/CCA Systolic Ratio:0.82 Left Vertebral Artery: Antegrade direction of flow. IMPRESSION: Velocities correspond to a less than 50 percent diameter stenosis of the right ICA. Velocities correspond to a less than 50 percent diameter stenosis of the left ICA. Antegrade direction of flow of the bilateral vertebral arteries. REFERENCE: Consensus Panel Horowitz-Scale and Doppler US Criteria for Diagnosis of ICA Stenosis. No stenosis: ICA PSV <125*, 0 percent plaque, ICA/CCA PSV Ratio <2.0, ICA EDV <40*. <50 percent stenosis: ICA PSV <125*, <50 percent plaque, ICA/CCA PSV Ratio <2.0, ICA EDV <40*. 50-69 percent stenosis: ICA PSV 125-230*, >=50 percent plaque, ICA/CCA PSV Ratio 2.0-4.0, ICA EDV 40-100*. >=70 percent but less than near occlusion >230, >=50 percent plaque, ICA/CAA PSV Ratio >4.0, ICA EDV >100*. *cm/sec Plaque estimate (diameter reduction) with horowitz-scale and color Doppler US. RSNA 2003 THIS IS AN ELECTRONICALLY VERIFIED FINAL REPORT 01/20/2024 12:48 PM - Electronically signed by Jhonny Brizuela D.O. AP: YEVGENIY Report ID: [id number] Reading Location: [id number] CT Head WO Contrast Result Date: 01/19/2024 Narrative: EXAM DESCRIPTION: CT HEAD WO CONTRAST REASON FOR STUDY: Dizziness, persistent/recurrent,cardiac or vascular cause suspected Pt to ED for feeling like he was going to pass out multiple times today. No hx of fx No surgery or stroke No hx of cancer TECHNIQUE: Axial images acquired through the brain without intravenous contrast. Images stored on PACS. Automated exposure control was usedas a dose optimization technique for this examination. COMPARISON: None. FINDINGS: BRAIN: Ventricles, cisterns and sulci are symmetric and mildly prominent, commensurate with age. Horowitz-white matter differentiation appears preserved. No intracranial hemorrhage is evident. EXTRA-AXIAL SPACES: No fluid collections. No mass effect. CALVARIUM: Appears intact. SINUSES/MASTOIDS: No fluid or mucosal thickening. ORBITS: Status post lens extractions. OTHER: No other significant abnormality. IMPRESSION: No acute intracranial findings. THIS IS AN ELECTRONICALLY VERIFIED FINAL REPORT 01/19/2024 10:06 PM - Electronically signed by Lane Flores M.D..OMeme Chaves M.D.O. MW: JÚNIOR Report ID: [id number] Reading Location: [id number] XR Chest 1 Vw Portable Result Date: 01/19/2024 Narrative: EXAM DESCRIPTION: XR CHEST 1 VIEW REASON FOR STUDY: dizziness feeling like he was goingto pass out multiple times today. TECHNIQUE: 1 radiographic view(s) of the chest. COMPARISON: 05/18/2023 01/10/2023 FINDINGS: Streaky opacities in the right base favors atelectasis. No new focal consolidation, pneumothorax, pulmonary edema, or pleural effusion. Mediastinal contours are stable. IMPRESSION: Streaky opacities in the right base favors atelectasis. THIS IS AN ELECTRONICALLY VERIFIEDFINAL REPORT 01/19/2024 9:50 PM - Electronically signed by Thea Ramirez M.D. QX: QX Report ID: [id number] Reading Location: [id number] ECG 12 lead Result Date: 01/19/2024 Narrative: Vent Rate: 74 bpm RR Interval: 810 msec UT Interval: 141 msec QRS Duration: 105 msec QT Interval: 359 msec QTC Interval: 386 msec P-R-T [place]: 10 - -5 - 77 degrees IMPRESSION: SINUS RHYTHM WITH OCCASIONAL VENTRICULAR PREMATURE COMPLEXES NONSPECIFIC T-WAVE ABNORMALITY BORDERLINE ECG Compared to prior EKG, heart rate has decreased Sinus rhythm replaced atrial fibrillation PVCs are new Electronically Signed By: Reji Maloney MD EMG/NCV - Impression: History: This is a 83 years old [...] peak latency comparison study using ring electrodes showedSNAP peak latency 2.0 ms for right radial nerve and 4.5 ms for right median nerve. EMG studies: The concentric needle electrode examination was performed on right FDI, APB, flexor carpi radialis, biceps and deltoid. There was no evidence of acute or chronic denervation or reinnervation. The interference pattern is full in all muscle tested. Impression: This is an abnormal study. There was electrophysiologic evidence suggestive of: 1. 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 The needle EMG study of right upper extremity didnot show any ongoing denervation. The clinical correlation is recommended. Current Facility-Administered Medications Medication Dose Route Frequency Provider Last Rate Last Admin albuterol 2.5 mg /3 mL (0.083 %) nebulizer solution 2.5 mg 2.5 mg nebulization Q4H PRN (RT) Jina Be MD apixaban (ELIQUIS) tablet 2.5 mg 2.5 mg oral Q12H [facility] Sweetie Castillo MD 2.5 mg at 01/21/24 0819 bisacodyl EC (DULCOLAX EC) tablet 10 mg 10 mg oral Daily PRN Jina Be MD dextromethorphan-guaiFENesin (ROBITUSSIN-DM) 2-20 mg/mL syrup 10 mL 10 mL oral Q4H PRN Jina Be MD guaiFENesin ER (MUCINEX) extended release tablet 600 mg 600 mg oral BID GayleJoey buchanan,MANAGER BANQUET 600 mg at 01/21/24 1201 ipratropium-albuteroL (DUO-NEB) 0.5-2.5 mg/3 mL nebulizer solution 3 mL 3 mL nebulization Q6H [facility] (RT) Jina Be MD 3 mL at 01/21/24 0743 irbesartan (AVAPRO) tablet 300 mg 300 mg oral Daily Jina Be MD 300 mg at 01/21/24 0819 magnesium hydroxide (MILK OF MAGNESIA) 80 mg/mL (33.3 mg/mL as elemental magnesium) oral [id number] mL 30 mL oral Daily PRN Jina Be MD 30 mL at 01/21/24 0021 metoprolol tartrate (LOPRESSOR) immediate release tablet 50 mg 50 mg oral BID Eder Mendoza MD 50 mg at 01/21/24 0818 mineral oil (FLEET MINERAL OIL) enema 133 mL 1 enema rectal Daily PRN Jina Be MD montelukast (SINGULAIR) tablet 10 mg 10 mg oral Nightly Jina Be MD 10 mg at 050 ondansetron ODT (ZOFRAN-ODT) disintegrating tablet 4 mg 4 mg oral Q6H PRN [place] PA Or ondansetron (ZOFRAN) injection 4 mg 4 mg intravenous Q6H PRN [place], [place] predniSONE (DELTASONE) tablet 40 mg 40 mg oral Daily Jina Be MD 40 mg at 01/21/24 0818 rosuvastatin (CRESTOR) tablet 5 mg 5 mg oral Nightly Jina Be MD 5 mg at 01/20/242049 sodium chloride 0.9% flush 0.5-20 mL 0.5-20 mL intra-catheter Q8H Jina Be MD 10 mL at 01/21/24 06 sodium chloride 0.9% flush 0.5-20 mL 0.5-20 mL intra-catheter PRN Jina Be MD A/P: Near syncope - Patient reports episodes of near syncope, mostly while driving in past few weeks - EKG on admission without acute changes to explain dizziness - US carotids negative - CT head negative - TTE: grade I diastolic dysfunction, LVEF 59% - BLED negative - Cardiology consulted - Plan for 30 day event monitor on discharge - PT/OT cleared for home independently Acute hypoxic respiratory failure, improved COPD with exacerbation - Noted congestion with wheezing and coarse lung sounds on admission - CXR negative for infiltrate - Ceftriaxone (01/18 - ) - Prednisone (01/18 - ) - Aggressive pulmonary hygiene - 01/20: Weaned to room air. Lung sounds improved but still with frequent congested, minimally productive cough. Added mucinex BID - Repeat CXR as indicated Paroxysmal atrial fibrillation Tachyarrhythmias Hypertension/hyperlipidemia - Continue - Cardiology consulted for possible atrial tachycardia - Discontinue home amlodipine - Increased metoprolol to 50mg BID - Significant decrease in caffeine intake (patient and drink 2 pots coffee daily) - DC on 30 day event monitor - Follow up with cardiology 3-4 weeks ELI on CKD stage IIIa - Cr baseline 1.3-1.5 - Cr on admission 1.44 - Trend Cr: 1.44, 1.54, 1.86 - NS bolus over 4 hours today - Repeat Cr in AM - Avoid nephrotoxic medications DVT ppx: eliquis Dispo: pending These fluid and electrolyte abnormalities are being treated, evaluated or monitored: Dehydration-- IVF's and repeat electrolytes My total encounter time on 01/21/2024 was 48 minutes which was spent in the activities documented inthe note. This includes time spent prior to the visit and after the visit in direct care of the patient. This time does not include time spent in any separately reportable services. Principal Problem: Near syncope Resolved Problems: No resolved hospital problems. Joey Parson NP 01/21/2024 2:16 PM * Concetta Corey [facility] - 01/20/2024 3:54 PM CDT Decreased apixaban dose from 5 mg PO BID to Apixaban 2.5 mg po BID is appropriate for age> 80, wt>60kg, Scr > 1.5 and indication of Afib. 83 y.o. Wt Readings from Last 1 Encounters: 01/20/24 : 87.6 kg (193 lb 3.2 oz) * Brady Mason OT - 01/20/2024 1:53 PM CDT Occupational Therapy Initial Evaluation and Discharge Past Medical History: Diagnosis Date Asbestosis (CMS/HCC) [...] MEDICAL 2002 diverticular bleed HX OTHER MEDICAL 2012 Prostate biopsy Hypertension Hypertension Mixed hyperlipidemia Obstructive chronic bronchitis without exacerbation Polyp of colon colon polyps PONV (postoperative nausea and vomiting) 01/20/24 1137 General Chart Reviewed Yes Session Type Evaluation OT Received On 01/20/24 Safe Environment Arm band checked;Gait belt utilized for all out of bed mobility Subjective Agreeable to Therapy Additional Pertinent History near syncope, COPD exacerbatoin, hypoxemic resp failure history of COPD, afib, CKD Family/Caregiver Present No Occupational Therapy-Patient Goal return home with at PLOF Precautions Precautions Fall risk Home Living Type of Home House Home Layout One level;Basement Home Access Stairs to enter without rails Entrance Stairs-Rails None Entrance Stairs-Number of Steps 2+2 Bathroom Shower/Tub Tub/shower unit Bathroom Toilet Standard Bathroom Equipment Grab bars in shower/tub Home Mobility Equipment-Available Wheeled walker;Single point cane Home Mobility Equipment-Currently Using None Prior Function Level of [place] Independent with ADLs;Independent functional transfers;Independent with ambulation;Independent with homemaking with ambulation Lives With Spouse Receives Help From Spouse/Significant other Driving Yes Fall within the last 6 months No ADL ADLS (WDL) X ADL Comments pt politely declined all ADLs at this time but reports independence with LB dressing, toileting and grooming tasks this AM. Pain Assessment Pain Assessment No/denies pain Cognition Overall Cognitive Status WFL Orientation Oriented X4 (person, place, time, situation) Compliance/Behavior Easy to engage Transfer 1 Transfer From 1 Bed Transfer Type 1 To and from Transfer to 1 Stand Technique 1 Stand to sit;Sit to stand;Ambulation Transfer Device 1 No device Transfer Level of Assistance 1 Independent RUE Assessment RUE Assessment WFL LUE Assessment LUE Assessment WFL Safe Environment End of Therapy Session Safe Environment End of Therapy Session Patient left sitting at edge of bed Assessment Prognosis Excellent Plan Plan If this is the last note, consider this the discharge summary;Discharge Recommendation/Plan OT Recommendation Home independently (D/C OT as pt states I really do not need therapy right now ) OT Frequency during current admission One-time visit (Discharge from this service) Treatment/Interventions during current admission ADL/IADL retraining OT Evaluation Complete Yes * Francisco Ramirez, PT - 01/20/2024 10:27 AM CDT Physical Therapy 01/20/24 1008 General Chart Reviewed Yes Session Type Evaluation PT Received On 01/20/24 Safe Environment Arm band checked;Patient found in supine;Session completed bedside;Gait belt utilized for all out of bed mobility Subjective Agreeable to Therapy Family/Caregiver Present No Physical Therapy-Patient Goal return home Precautions Precautions Fall risk Home Living Type of Home House Home Layout One level;Basement Home Access Stairs to enter without rails Entrance Stairs-Rails None Entrance Stairs-Number of Steps 2+2 Home Mobility Equipment-Available Single point cane;Wheeled walker Home Mobility Equipment-Currently Using None Prior Function Level of [place] Independent with ADLs;Independent functional transfers;Independent with ambulation Lives With Spouse Receives Help From Spouse/Significant other Driving Yes Fall within the last 6 months No Pain Assessment Pain Assessment No/denies pain Cognition Overall Cognitive Status WFL Orientation Oriented X4 (person, place, time, situation) Compliance/Behavior Easy to engage Balance Balance Yes (static sit/stand indep) Bed Mobility 1 Bed Mobility From 1 Supine Bed Mobility Type 1 To Bed Mobility to 1 Edge of bed Level of Assistance 1 Independent Transfer 1 Transfer From 1 Bed;Sit Transfer Type 1 To and from Transfer to 1 Stand Technique 1 Sit to stand;Stand to sit Transfer Device 1 No device Transfer Level of Assistance 1 Independent Ambulation 1 Distance (ft) 1 200 Surface 1 Level tile Device 1 No device Assistance 1 Independent Quality of Gait 1 wnl, slight wheezing and sob noted throughout gt Ambulation Comments 1 (S) RA rest 93%, hr 80, w gt 89%, hr 86, recovered 93%, hr 82, pt does have COPD Stairs Stairs Yes Stairs Number of Stairs 1 4 Rails 1 None (Comment) Device 1 No device Assistance 1 Independent Stairs: Requires assist with 1 (alternating up, step to down) RLE Assessment RLE Assessment WFL LLE Assessment LLE Assessment WFL Assessment Prognosis Good Barriers to Discharge None Plan Plan Discharge Recommendation/Plan PT Recommendation/Plan Home independently PT Recommendation/Plan Comments f/u per recommendations PT Frequency during current admission One time visit (Discharge from this service) PT Evaluation Complete Yes documented in this encounter H&P Notes * Jina Be MD - 01/20/2024 4:32 AM CDT History and Physical CHIEF COMPLAINT Chief Complaint Patient presents with Dizziness HPI: 83 yo male with history of COPD, afib, CKD presenting with complaint of having 5 near fainting spells while driving. He felt lightheaded and that he was going to pass out. He did not lose consciousness. O2 was 89% and heart rate was in the 110s. He mentions that he has a chronic cough and is occasionally wheezing. He uses his breathing treatments sporadically and does not smoke. He denies having chest pain, palpitations, headache, extremity numbness or weakness, or slurred speech. Past Medical History: Diagnosis Date Asbestosis (CMS/HCC) [...] MEDICAL 2002 diverticular bleed HX OTHER MEDICAL 2012 Prostate biopsy Hypertension Hypertension Mixed hyperlipidemia Obstructive chronic bronchitis without exacerbation Polyp of colon colon polyps PONV (postoperative nausea and vomiting) Past Surgical History: Procedure Laterality Date BACK SURGERY back surgery x 3 BREAST LUMPECTOMY Right Benign / done years ago / COLONOSCOPY 08/12/2016 HERNIA REPAIR Hernia repair HERNIA REPAIR Left 01/24/2022 OTHER SURGICAL HISTORY s/p HNP L spine Medications Prior to Admission Medication Sig Dispense Refill Last Dose albuterol 2.5 mg /3 mL (0.083 %) nebulizer solution 01/19/2024 albuterol HFA (PROAIR HFA) 90 mcg/actuation inhaler inhale 2 puff by inhalation route every 4 - 6 hours as needed 1 Inhaler 1 01/19/2024 amLODIPine (NORVASC) 5 mg tablet 01/19/2024 apixaban (Eliquis) 5 mg tablet Take 1 tablet (5 mg total) by mouth every 12 (twelve) hours 180 tablet 3 01/19/2024 calcium citrate-vitamin D3 200 mg-3.125 mcg (125 unit) tablet Take 1 tablet by mouth daily 01/19/2024 cholecalciferol (VITAMIN D-3) 5,000 unit tablet Take 1 tablet (5,000 Units total) by mouth daily. 90 tablet 0 01/19/2024 metoprolol tartrate (LOPRESSOR) 25 mg immediate release tablet Take 1 tablet (25 mg total) by mouth2 (two) times a day 01/19/2024 montelukast (SINGULAIR) 10 mg tablet Take 1 tablet (10 mg total) by mouth nightly 01/19/2024 jasadtjx-zfs-[id number]-vit K-lycop (ONE-A-DAY MEN'S MULTIVITAMIN) 400-20-300 mcg tablet Take one by mouth one time per day 0 0 01/19/2024 simvastatin (ZOCOR) 10 mg tablet Take 1 tablet (10 mg total) by mouth nightly 01/19/2024 Trelegy Ellipta 200-62.5-25 mcg inhaler 01/19/2024 docusate sodium (Colace) 100 mg capsule Take 1 capsule (100 mg total) by mouth 2 (two) times a day for 14 days (Patient not taking: Reported on 02/26/2023) 28 capsule 2 irbesartan-hydroCHLOROthiazide (AVALIDE) 300-12.5 mg per tablet Take 1 tablet by mouth daily 90 tablet 3 Unknown metoprolol tartrate (LOPRESSOR) 25 mg immediate release tablet Take 1 tablet (25 mg total) by mouth2 (two) times a day (Patient not taking: Reported on 01/20/2024) 60 tablet 11 Not Taking Allergies Allergen Reactions Miguel A Inhibitors Cough Reaction: Cough, Acetaminophen Unknown Current Facility-Administered Medications Medication Dose Route Frequency Provider Last Rate Last Admin albuterol 2.5 mg /3 mL (0.083 %) nebulizer solution 2.5 mg 2.5 mg nebulization Q4H PRN (RT) Jina Be MD amLODIPine (NORVASC) tablet 5 mg 5 mg oral Daily Jina Be MD apixaban (ELIQUIS) tablet 5 mg 5 mg oral Q12H [facility] Jina Be MD azithromycin (ZITHROMAX) tablet 500 mg 500 mg oral Daily Jina Be MD 500 mg at 01/20/24 0403 bisacodyl EC (DULCOLAX EC) tablet 10 mg 10 mg oral Daily PRN Jina Be MD dextromethorphan-guaiFENesin (ROBITUSSIN-DM) 2-20 mg/mL syrup 10 mL 10 mL oral Q4H PRN Jina Be MD ipratropium-albuteroL (DUO-NEB) 0.5-2.5 mg/3 mL nebulizer solution 3 mL 3 mL nebulization Q6H [facility] (RT) Jina Be MD irbesartan (AVAPRO) tablet 300 mg 300 mg oral Daily Jina Be MD magnesium hydroxide (MILK OF MAGNESIA) 80 mg/mL (33.3 mg/mL as elemental magnesium) oral [id number] mL 30 mL oral Daily PRN Jina Be MD metoprolol tartrate (LOPRESSOR) immediate release tablet 25 mg 25 mg oral BID Jina Be MD mineral oil (FLEET MINERAL OIL) enema 133 mL 1 enema rectal Daily PRN Jina Be MD montelukast (SINGULAIR) tablet 10 mg 10 mg oral Nightly Jina Be MD ondansetron ODT (ZOFRAN-ODT) disintegrating tablet 4 mg 4 mg oral Q6H PRN [place] PA Or ondansetron (ZOFRAN) injection 4 mg 4 mg intravenous Q6H PRN She Camp PA predniSONE (DELTASONE) tablet 40 mg 40 mg oral Daily Jina Be MD rosuvastatin (CRESTOR) tablet 5 mg 5 mg oral Nightly Jina Be MD sodium chloride 0.9% flush 0.5-20 mL 0.5-20 mL intra-catheter Q8H Jina Be MD sodium chloride 0.9% flush 0.5-20 mL 0.5-20 mL intra-catheter PRN Jina Be MD Social History Tobacco Use Smoking status: Former Current packs/day: 0.00 Types: Cigarettes Quit date: 2011 Years since quittin.2 Smokeless tobacco: Never Substance and Sexual Activity Drug use: Yes Sexual activity: Defer Partners: Female Alcohol Use: Not At Risk (01/20/2024) AUDIT-C Frequency of Alcohol Consumption: Monthly or less Average Number of Drinks: 1 or 2 Frequency of Binge Drinking: Never Family History Problem Relation Age of Onset Dementia Mother 87 Dementia; Cancer Mother 87 cancer; Other Father hx not provided; Cancer Brother 60 Cancer -; Bone cancer Brother Brain cancer Brother 62 Cancer -brain; Lung cancer Brother 62 Cancer -lung; Lung cancer Sister Cancer, lung; Brain cancer Sister Review of Systems: 1. Constitutional Denies: weight loss, weight gain, fever, chills, night sweats, fatigue 2. Eyes Denies: change in vision, double vision, eye pain, eye discharge, icterus 3. ENT Denies: change in hearing, ear pain, ear discharge, nose bleed, nasal congestion, sore throat 4. Respiratory Denies: SOB, wheezing, sputum, hemoptysis 5. CV Denies: chest pain, palpitations, syncope, edema, dyspnea 6. GI Denies: abdominal pain, decreased appetite, nausea, vomiting, change in bowel habitus, diarrhea, constipation, melena, BRBPR 7. Denies: dysuria, frequency, hematuria, nocturia, urgency 8. Metabolic Denies: cold intolerance, heat intolerance, polyphagia, polydipsia 9. Neurologic Denies: headache, seizure, change in mental status, focal weakness, focal numbness 10. Musculoskeletal Denies: myalgia, joint pain, joint redness, joint swelling, extremity pain 11. Hematologic Denies: bleeding, bruising, hematoma, lymphadenopathy, icterus OBJECTIVE Vitals: Arrival Vitals Temp 01/19/24 1345 36.4 ??C (97.5 ??F) Pulse 01/19/24 1345 77 Resp 01/19/24 1345 16 BP 01/19/24 1345 145/71 SpO2 01/19/24 1345 95 % Temp src 01/19/24 1345 Temporal Heart Rate Source 01/20/24 0104 Pulse Oximetry Patient Position 01/20/24 0104 Lying BP Location 01/20/24 0104 Right arm FiO2 (%) -- 24hr Min/Max: Temp Min: 36.3 ??C (97.4 ??F) Max: 37 ??C (98.6 ??F) Pulse Min: 77 Max: 118 BP Min: 85/41 Max: 149/88 Resp Min: 16 Max: 26 SpO2 Min: 87 % Max: 99 % Most Recent : Vitals: 01/20/24 0319 BP: 104/53 Pulse: 104 Resp: 22 Temp: 36.3 ??C (97.4 ??F) SpO2: 96% No intake or output data in the 24 hours ending 01/20/24 0527 Physical exam: General: awake, alert, oriented to person, place, and time. No acute distress Eyes: no scleral icterus, extraocular motion is intact, pupils are equal Neck: supple Pharynx: No gross oral lesion, tongue midline, mucosa moist Lungs: diffusely coarse breath sounds with expiratory wheezes Heart: normal rate, normal rhythm, normal s1 and s2, no murmur noted Abd: present bowel sounds, Non Tender, Non distended Extremities: No gross edema, strength exam is 5/5 and symmetric Neuro: CN 2-12 is grossly intact, has no focal weakness Musculoskeletal: no gross joint erythema, edema, tenderness Psychiatric: normal affect and mood Lab/Radiology/Diagnostic Review: Recent Results (from the past 24 hour(s)) Comprehensive metabolic panel Collection Time: 01/19/24 2:03 PM Result Value Ref Range Sodium 136 135 - 145 mmol/L Potassium, pl 4.9 3.3 - 4.9 mmol/L Chloride 99 97 - 110 mmol/L CO2 25 22 - 32 mmol/L Anion gap 12 2 - 15 mmol/L BUN 27 (H) 6 - 25 mg/dL Creatinine 1.44 (H) 0.80 - 1.30 mg/dL Glucose 109 70 - 199 mg/dL Calcium 9.9 8.5 - 10.3 mg/dL Bilirubin, total 0.4 0.1 - 1.2 mg/dL Protein, pl 7.3 6.5 - 8.5 g/dL Albumin 3.5 3.5 - 5.0 g/dL Alk phos 108 40 - 130 Units/L ALT 15 7 - 55 Units/L AST 27 10 - 50 Units/L eGFR Collection Time: 01/19/24 2:03 PM Result Value Ref Range eGFR 49 mL/min/1.73 m2 Urinalysis reflex to microscopic and culture Urine Collection Time: 01/19/24 2:53 PM Specimen: Urine Result Value Ref Range Color, ur Yellow Yellow Clarity, ur Clear Clear Specific gravity, ur 1.014 1.003 - 1.030 pH, urine 6.5 Protein, ur ql Trace Negative Glucose, ur ql Negative Negative Ketones, ur Negative Negative Bilirubin, ur Negative Negative Blood, ur Negative Negative Urobilinogen, ur <2.0 <2.0 mg/dL Nitrite, ur Negative Negative Leukocyte esterase, ur Negative Negative UA reflex comment Reflex conditions for microscopic UA and culture not met. CBC with auto differential Collection Time: 01/19/24 9:25 PM Result Value Ref Range WBC 10.3 (H) 3.8 - 9.9 K/cumm Hgb 13.6 13.0 - 17.5 g/dL Hct 41.1 38.9 - 50.3 % Plt 306 150 - 400 K/cumm MPV 9.0 (L) 9.1 - 12.3 fL RBC 4.29 (L) 4.30 - 5.80 M/cumm MCV 95.8 81.3 - 96.4 fL MCH 31.7 27.1 - 33.3 pg MCHC 33.1 32.3 - 35.7 g/dL RDW CV 13.3 11.1 - 14.9 % RDW SD 47.1 35.7 - 48.1 fL NRBC abs 0.00 0.00 - 0.01 K/cumm Troponin T high-sensitivity series (baseline, 2hr, 4hr, 6hr) Collection Time: 01/19/24 9:25 PM Result Value Ref Range Trop T hs 21 <=22 ng/L Differential, auto Collection Time: 01/19/24 9:25 PM Result Value Ref Range Neutrophil abs 7.0 (H) 1.5 - 6.5 K/cumm Imm gran abs 0.0 0.0 - 0.1 K/cumm Lymphocyte abs 2.2 0.8 - 3.3 K/cumm Monocyte abs 0.6 0.2 - 0.8 K/cumm Eosinophil abs 0.4 0.0 - 0.5 K/cumm Basophil abs 0.1 0.0 - 0.1 K/cumm Neutrophil pct 68.1 % Imm gran pct 0.2 % Lymphocyte pct 21.7 % Monocyte pct 5.9 % Eosinophil pct 3.4 % Basophil pct 0.7 % Pro B-type natriuretic peptide Collection Time: 01/19/24 9:35 PM Result Value Ref Range NT-proBNP 439 <=450 pg/mL D-dimer, quantitative Collection Time: 01/19/24 9:35 PM Result Value Ref Range D-Dimer 580 (H) <=499 ng/mL FEU Influenza A/B, RSV, and COVID-19 PCR Nasopharyngeal Collection Time: 01/19/24 9:35 PM Specimen: Nasopharyngeal Result Value Ref Range COVID-19 RNA Negative Negative Influenza A RNA Negative Negative Influenza B RNA Negative Negative RSV RNA Negative Negative Troponin T high-sensitivity 2-hour Collection Time: 01/20/24 12:02 AM Result Value Ref Range Trop T hs 19 <=22 ng/L Trop T hs delta -2 ng/L Trop T hs interp Insignificant CT Head WO Contrast Result Date: 01/19/2024 Narrative: EXAM DESCRIPTION: CT HEAD WO CONTRAST REASON FOR STUDY: Dizziness, persistent/recurrent,cardiac or vascular cause suspected Pt to ED for feeling like he was going to pass out multiple times today. No hx of fx No surgery or stroke No hx of cancer TECHNIQUE: Axial images acquired through the brain without intravenous contrast. Images stored on PACS. Automated exposure control was usedas a dose optimization technique for this examination. COMPARISON: None. FINDINGS: BRAIN: Ventricles, cisterns and sulci are symmetric and mildly prominent, commensurate with age. Horowitz-white matter differentiation appears preserved. No intracranial hemorrhage is evident. EXTRA-AXIAL SPACES: No fluid collections. No mass effect. CALVARIUM: Appears intact. SINUSES/MASTOIDS: No fluid or mucosal thickening. ORBITS: Status post lens extractions. OTHER: No other significant abnormality. IMPRESSION: No acute intracranial findings. THIS IS AN ELECTRONICALLY VERIFIED FINAL REPORT 01/19/2024 10:06 PM - Electronically signed by Hector Ayala M.D., D.O. Hector Ayala M.D., D.O. MW: [id number] Report ID: [id number] Reading Location: [id number] XR Chest 1 Vw Portable Result Date: 01/19/2024 Narrative: EXAM DESCRIPTION: XR CHEST 1 VIEW REASON FOR STUDY: dizziness feeling like he was goingto pass out multiple times today. TECHNIQUE: 1 radiographic view(s) of the chest. COMPARISON: 05/18/2023 01/10/2023 FINDINGS: Streaky opacities in the right base favors atelectasis. No new focal consolidation, pneumothorax, pulmonary edema, or pleural effusion. Mediastinal contours are stable. IMPRESSION: Streaky opacities in the right base favors atelectasis. THIS IS AN ELECTRONICALLY VERIFIED FINAL REPORT 01/19/2024 9:50 PM - Electronically signed by Thea Ramirez M.D. QX: QX Report ID: [id number] Reading Location: [id number] ECG 12 lead Result Date: 01/19/2024 Narrative: Vent Rate: 74 bpm RR Interval: 810 msec UT Interval: 141 msec QRS Duration: 105 msec QT Interval: 359 msec QTC Interval: 386 msec P-R-T [place]: 10 - -5 - 77 degrees IMPRESSION: SINUS RHYTHM WITH OCCASIONAL VENTRICULAR PREMATURE COMPLEXES NONSPECIFIC T-WAVE ABNORMALITY BORDERLINE ECG Compared to prior EKG, heart rate has decreased Sinus rhythm replaced atrial fibrillation PVCs are new Electronically Signed By: Reji Maloney MD EMG/NCV - Impression: History: This is a 83 years old [...] peak latency comparison study using ring electrodes showedSNAP peak latency 2.0 ms for right radial nerve and 4.5 ms for right median nerve. EMG studies: The concentric needle electrode examination was performed on right FDI, APB, flexor carpi radialis, biceps and deltoid. There was no evidence of acute or chronic denervation or reinnervation. The interference pattern is full in all muscle tested. Impression: This is an abnormal study. There was electrophysiologic evidence suggestive of: 1. 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 The needle EMG study of right upper extremity didnot show any ongoing denervation. The clinical correlation is recommended. A/P Near syncope COPD exacerbation Acute hypoxemic respiratory failure Paroxysmal afib HTN CKD 3a Ct head shows no acute finding. Near syncope is possibly due to hypoxemia. Has normal age-adjusted d-dimer. On duoneb q6h and prednisone daily. On 2L and will need home o2 evaluation prior to discharge. Resume eliquis and lopressor bid. BP is stable also on avapro and norvasc. Hold hctz due to near syncope event. Monitor on telemetry. Had a run of narrow complex tachycardia on tele strip possibly atrial tach. Will consult cardiology. Code status: Full Anticipated length of stay is greater than 2 midnights My total encounter time was 75 minutes which was spent in the activities documented in the note. This includes time spent prior to the visit and after the visit in direct care of the patient. This time does not include time spent in any separately reportable services. Voice recognition software [employer] was used dictate and transcribe this document. Advertiser variances may occur. Despite proofreading, typographical errors may occur. Jina Be MD documented in this encounter Consult Notes * Eder Mendoza MD - 01/20/2024 10:17 AM CDTAssociated Order(s): IP CONSULT TO CARDIOLOGY Images from the original note were not included. Cardiology Consultation note Admit date: 01/19/2024 Chief Complaint: Near syncope History of Present Illness: Clarita Juan is a 83 y.o. male with a PMHx of PAF on Eliquis, HFpEF, COPD, basal cell carcinoma, CKD, and HTN who presented to the ED yesterday afternoon with several episodes of near syncope. Episodes occurred while he was driving where he felt very lightheaded. Did not feel any palpitations during those episodes. Never actually lost consciousness. When he got home he used a pulse ox which showed an elevated HR and an 02 sat of 89%. He went to a local [facility] care which directed him to be seen in the ED. In the ED he was noted to have SVT on the monitor. BUN/Creatinine 27 and 1.44. CXR consistent with atelectasis. CT of the head with no acute intracranial findings. Patient was admittedfor further work-up. Overnight, there was a brief episode of SVT at around 220 beats per minute. Patient remembers the nurses coming in but he again felt nothing. Did not feel dizzy with that episode. No true syncopal episodes. Did have atrial fibrillation in January 2023 and again he did not feel any palpitations at that time. Was supposed to be on Lipitor but it was too expensive. Finally started the Lipitor again about a week ago. Past Medical History: Diagnosis Date Asbestosis (CMS/HCC) [...] MEDICAL 2002 diverticular bleed HX OTHER MEDICAL 2012 Prostate biopsy Hypertension Hypertension Mixed hyperlipidemia Obstructive chronic bronchitis without exacerbation Polyp of colon colon polyps PONV (postoperative nausea and vomiting) Past Surgical History: Procedure Laterality Date BACK SURGERY back surgery x 3 BREAST LUMPECTOMY Right Benign / done years ago / COLONOSCOPY 08/12/2016 HERNIA REPAIR Hernia repair HERNIA REPAIR Left 01/24/2022 OTHER SURGICAL HISTORY s/p HNP L spine Allergies Allergen Reactions Miguel A Inhibitors Cough Reaction: Cough, Acetaminophen Unknown Patient Vitals for the past 24 hrs: BP Temp Temp src Pulse Resp SpO2 Height Weight 01/20/24 0807 -- -- -- -- -- 93 % -- -- 01/20/24 0726 125/74 36.4 ??C (97.6 ??F) Temporal 107 20 94 % -- -- 01/20/24 0600 -- -- -- 98 -- 91 % -- -- 01/20/24 0400 -- -- -- 102 -- 91 % -- -- 01/20/24 0319 104/53 36.3 ??C (97.4 ??F) Temporal 104 22 96 % -- -- 01/20/24 0200 -- -- -- 107 -- 92 % -- -- 01/20/24 0123 -- -- -- -- -- 98 % -- -- 01/20/24 0106 -- -- -- 108 -- 91 % -- -- 01/20/24 0104 130/59 37 ??C (98.6 ??F) Temporal 107 20 99 % 170.2 cm (5' 7 ) 87.6 kg (193 lb 3.2 oz) 01/20/24 0045 101/60 -- -- 106 18 (!) 87 % -- -- 01/20/24 0025 109/56 -- -- 112 21 (!) 89 % -- -- 01/20/24 0018 92/53 -- -- 118 26 90 % -- -- 01/20/24 0015 (!) 85/41 -- -- 118 16 (!) 87 % -- -- 01/19/24 2330 119/82 -- -- 114 19 98 % -- -- 01/19/24 2300 138/82 -- -- 91 20 99 % -- -- 01/19/24 2200 149/88 -- -- 83 22 91 % -- -- 01/19/24 1345 145/71 36.4 ??C (97.5 ??F) Temporal 77 16 95 % 170.2 cm (5' 7 ) 88.9 kg (196 lb) Intake/Output Summary (Last 24 hours) at 01/20/2024 1017 Last data filed at 01/20/2024 0940 Gross per 24 hour Intake 360 ml Output 300 ml Net 60 ml Wt Readings from Last 3 Encounters: 01/20/24 87.6 kg (193 lb 3.2 oz) 12/17/23 89.4 kg (197 lb) 05/28/23 86.6 kg (191 lb) Cardiac Rhythm: Sinus tachycardia (01/20/24 0800) Physical Exam: General: Elderly male who was sitting on side of bed. He looked quite comfortable on 3 L O2 saturating 95%. Skin: Warm and dry Head: Normocephalic, oral mucosa and conjunctivae normal Neck: No thyromegaly or bruits. Carotid pulses 2+ Lungs: Clear to auscultation. Cardiac: Regular rate and rhythm without any murmurs gallops or rubs. Abd: Soft, nontender, BS active, no hepatosplenomegaly or masses, no abdominal bruit or enlarged aortic pulsation Extremities: No clubbing, cyanosis. No edema. Femoral pulses 2+. Pedal pulses 2+ Musculoskeletal: Muscle strength normal. No scoliosis. Neurologic: Oriented to person, place, and time. Mood not depressed. Family History Problem Relation Age of Onset Dementia Mother 87 Dementia; Cancer Mother 87 cancer; Other Father hx not provided; Cancer Brother 60 Cancer -; Bone cancer Brother Brain cancer Brother 62 Cancer -brain; Lung cancer Brother 62 Cancer -lung; Lung cancer Sister Cancer, lung; Brain cancer Sister Social History Tobacco Use Smoking status: Former Current packs/day: 0.00 Types: Cigarettes Quit date: 2011 Years since quittin.2 Smokeless tobacco: Never Substance and Sexual Activity Drug use: Yes Sexual activity: Defer Partners: Female Alcohol Use: Not At Risk (01/20/2024) AUDIT-C Frequency of Alcohol Consumption: Monthly or less Average Number of Drinks: 1 or 2 Frequency of Binge Drinking: Never Prior to Admission medications Medication Sig Start Date End Date Taking? Authorizing Provider albuterol 2.5 mg /3 mL (0.083 %) nebulizer solution 06/04/23 Yes Shilo Bertrand MD albuterol HFA (PROAIR HFA) 90 mcg/actuation inhaler inhale 2 puff by inhalation route every 4 - 6 hours as needed 09/25/15 Yes Cassius London MD amLODIPine (NORVASC) 5 mg tablet 06/08/23 Yes Shilo Bertrand MD apixaban (Eliquis) 5 mg tablet Take 1 tablet (5 mg total) by mouth every 12 (twelve) hours 01/05/24 01/04/25 Yes Edgardo Parish MD calcium citrate-vitamin D3 200 mg-3.125 mcg (125 unit) tablet Take 1 tablet by mouth daily Yes Shilo Bertrand MD cholecalciferol (VITAMIN D-3) 5,000 unit tablet Take 1 tablet (5,000 Units total) by mouth daily. 07/29/17 Yes Cassius London MD metoprolol tartrate (LOPRESSOR) 25 mg immediate release tablet Take 1 tablet (25 mg total) by mouth2 (two) times a day Yes Shilo Bertrand MD montelukast (SINGULAIR) 10 mg tablet Take 1 tablet (10 mg total) by mouth nightly 09/09/21 Yes Shilo Bertrand MD ofkhyrie-uel-rxbjc-vit K-lycop (ONE-A-DAY MEN'S MULTIVITAMIN) 400-20-300 mcg tablet Take one by mouth one time per day 08/23/08 Yes Jamar Juan PA simvastatin (ZOCOR) 10 mg tablet Take 1 tablet (10 mg total) by mouth nightly Yes Shilo Bertrand MD Trelegy Ellipta 200-62.5-25 mcg inhaler 05/06/23 Yes Shilo Bertrand MD docusate sodium (Colace) 100 mg capsule Take 1 capsule (100 mg total) by mouth 2 (two) times a day for 14 days Patient not taking: Reported on 02/26/2023 01/24/22 02/07/22 Willie Brown MD irbesartan-hydroCHLOROthiazide (AVALIDE) 300-12.5 mg per tablet Take 1 tablet by mouth daily 02/26/23 02/26/24 Bg Miller NP metoprolol tartrate (LOPRESSOR) 25 mg immediate release tablet Take 1 tablet (25 mg total) by mouth2 (two) times a day Patient not taking: Reported on 01/20/2024 01/15/23 01/15/24 Donna Raygoza MD aspirin 81 mg enteric coated tablet Take 1 tablet (81 mg total) by mouth daily 01/20/24 Shilo Bertrand MD fluticasone propionate (FLONASE) 50 mcg/actuation nasal spray Administer 50 sprays into each nostril 2 (two) times a day as needed Patient not taking: Reported on 06/17/2023 02/05/22 01/20/24 Shilo Bertrand MD meclizine (ANTIVERT) 12.5 mg tablet Take 1 tablet (12.5 mg total) by mouth 3 (three) times a day asneeded for dizziness Patient not taking: Reported on 06/17/2023 01/18/2201/19/24 Luis E Chin MD ondansetron (ZOFRAN) 4 mg tablet Take 1 tablet (4 mg total) by mouth every 6 (six) hours Patient not taking: Reported on 06/17/2023 01/18/22 01/20/24 Luis E Chin MD tamsulosin (FLOMAX) 0.4 mg capsule,extended release 24hr take 1 capsule by oral route every day 1/2hour following the same meal each day 08/06/16 01/20/24 Cassius London MD traMADoL (ULTRAM) 50 mg tablet Take 0.5 tablets (25 mg total) by mouth every 6 (six) hours as needed for pain Patient not taking: Reported on 06/17/2023 01/24/22 01/20/24 Willie Brown MD Recent Labs Lab Units 01/20/24 0824 01/19/24 1403 SODIUM mmol/L 137 136 POTASSIUM PLASMA mmol/L 3.8 4.9 CHLORIDE mmol/L 99 99 CO2 mmol/L 24 25 BUN SERUM mg/dL 28* 27* CREATININE mg/dL 1.54* 1.44* [id number] mL/min/1.73 m2 45 49 GLUCOSE mg/dL 187 109 CALCIUM mg/dL 9.9 9.9 ALBUMIN g/dL 3.7 3.5 PHOSPHORUS PLASMA mg/dL 3.0 -- Recent Labs Lab Units 01/20/24 0824 01/19/24 1403 ALK PHOS Units/L 109 108 BILIRUBIN TOTAL mg/dL 0.3 0.4 BILIRUBIN DIRECT mg/dL <0.2 -- TOTAL PROTEIN g/dL 7.3 7.3 ALT Units/L 14 15 AST Units/L 14 27 Recent Labs Lab Units 01/20/24 0824 01/19/24 2125 WBC K/cumm 11.8* 10.3* HEMOGLOBIN g/dL 13.4 13.6 HEMATOCRIT % 40.3 41.1 PLATELETS K/cumm 305 306 Lab Results Component Value Date TSH 1.56 03/04/2023 FREET4 1.10 07/24/2017 Lab Results Component Value Date CHOL 137 06/05/2023 TRIG 97 06/05/2023 HDL 37 (L) 06/05/2023 LDLCALC 81 06/05/2023 Telemetry: Cardiac Rhythm: Sinus tachycardia (01/20/24 0800) Cardiology Testing: EK01/19/2024 Stress Test for Myocardial Perfusion: 04/14/2024 Conclusions: 1. Negative Lexiscan pharmacologic stress test for chest pain or EKG changes. 2. Nuclear images are pending and they will be reported separately. NM MPI Spect (Rest and/or Stress) Multiple studies: 04/14/2024 Conclusions: 1. Myocardial Perfusion: Normal rest and stress images. 2. Left ventricle: Normal size and systolic function (EF >50%) 14 Day Event Monitor: 03/17/2023 Conclusions: Sinus rhythm with heart rates 52-119 beats per minute No atrial fibrillation, no pauses No triggered events Echocardiogram: 01/14/2023 Conclusions: Normal left ventricular systolic function with no focal wall motion abnormalities. Normal left ventricular size. Normal left ventricular wall thickness. Mild enlargement of left ventricle cavity. Diastolic dysfunction is present. Ejection fraction is measured at 63 %. There is mild enlargement of left atrium. Impression: Dizziness of unknown etiology, possibly due to rapid SVT. Interestingly, the only episode that was caught here was not felt by the patient. I will increase the metoprolol to 50 mg p.o. b.i.d. and discontinue the amlodipine. He will likely need another personnel monitor on discharge. Paroxysmal atrial fibrillation 1st diagnosed in January 2023. Was on Eliquis briefly but then not on it for a long time because of cost. Restarted Eliquis a week ago. Dyslipidemia on Zocor 10 mg p.o. q.p.m.. LDL 81 mg/dL on 05 June 2023. At goal less than 100 mg/dL. Persistent sinus tachycardia, likely due to his coffee consumption. He drinks at least 4 cups of coffee a day. Plan: court recording monitor for 30 days on discharge. Discontinue amlodipine. Increase metoprolol tartrate to 50 mg p.o. b.i.d.. Wean off oxygen as long as O2 sats over 90%. Patient advised to cut back significantly on his caffeine intake. Follow-up with Bg, our nurse practitioner, 3-4 weeks after discharge. CC: Cassius London MD Sinha, Chandni, MD documented in this encounter Nursing Notes * Reta Dennis RN - 01/22/2024 2:55 PM CDT Discharged in stable condition per wheelchair with discharge instruction,to home with , denied any questions at this time. Encouraged to keep all follow up appointments. Patient verbalized understanding * Reta Dennis RN - 01/22/2024 10:39 AM CDT Tele removed as ordered. Supplemental oxygen stopped, room air sat 97% documented in this encounter ED Notes * She Camp PA - 01/19/2024 9:13 PM CDT CHIEF COMPLAINT: Chief Complaint Patient presents with ??? Dizziness HPI 10:57 PM Clarita Juan is a 83 y.o. male with a history of COPD, paroxysmal atrial fibrillation, hypertension, chronic kidney disease, and congestive heart failure presenting to the ED c/o near syncope. The patient's says he was driving around this morning and had about 5 episodes where he began tofeel lightheaded like he was going to pass out. He never actually lost consciousness, fell, or was injured. When he got home his had him check his heart rate and pulse oximetry. He says initially his heart rate of 111 the jumped to 119, and his oxygen was hovering around 89%. At this point thepatient went to an urgent care, was seen, they recommended that he come to the ER for further evaluation. The patient says he has never had similar episodes of lightheadedness. He denies current chest pain, shortness of breath, nausea, vomiting, or diarrhea. He also denies recent illness, fever, chills, diaphoresis, He has a periodic wheezy cough that is nonproductive, which she says is fairly regularly for him. The patient is currently on a personnel monitor which shows normal sinus rhythm. The p atient denies dysphagia, dysarthria, focal weakness, vision changes, hearing changes, tinnitus, newnumbness or tingling. Patient states he was recently treated for a COPD exacerbation by his primarycare physician with an unknown antibiotic and steroids completed 1 week ago. Patient reports no improvement in his symptoms. History provided by the patient PCP: Cassius London MD PAST MEDICAL HISTORY Past Medical History: Diagnosis Date ??? Asbestosis (CMS/HCC) (HCC) asbestosis ??? Cancer (CMS/HCC) (HCC) biopsy showed small area of prostate cancer ??? Chronic diarrhea ??? COPD (chronic obstructive pulmonary disease) (HCC) ??? HX OTHER MEDICAL dyslipidemia ??? HX OTHER MEDICAL PAD ??? HX OTHER MEDICAL ED ??? HX OTHER MEDICAL 01-pulmonolgist ??? HX OTHER MEDICAL v. veins ??? HX OTHER MEDICAL prostatism ??? HX OTHER MEDICAL diastasis recti ??? HX OTHER MEDICAL 2002 diverticular bleed ??? HX OTHER MEDICAL 2012 Prostate biopsy ??? Hypertension Hypertension ??? Mixed hyperlipidemia ??? Obstructive chronic bronchitis without exacerbation ??? Polyp of colon colon polyps ??? PONV (postoperative nausea and vomiting) PAST SURGICAL HISTORY Past Surgical History: Procedure Laterality Date ??? BACK SURGERY back surgery x 3 ??? BREAST LUMPECTOMY Right Benign / done years ago / ??? COLONOSCOPY 08/12/2016 ??? HERNIA REPAIR Hernia repair ??? HERNIA REPAIR Left 01/24/2022 ??? OTHER SURGICAL HISTORY s/p HNP L spine FAMILY HISTORY Family History Problem Relation Age of Onset ??? Dementia Mother 87 Dementia; ??? Cancer Mother 87 cancer; ??? Other Father hx not provided; ??? Cancer Brother 60 Cancer -; ??? Bone cancer Brother ??? Brain cancer Brother 62 Cancer -brain; ??? Lung cancer Brother 62 Cancer -lung; ??? Lung cancer Sister Cancer, lung; ??? Brain cancer Sister MEDICATIONS GIVEN IN THE ED Medications ondansetron ODT (ZOFRAN-ODT) disintegrating tablet 4 mg (has no administration in time range) Or ondansetron (ZOFRAN) injection 4 mg (has no administration in time range) albuterol 2.5 mg /3 mL (0.083 %) nebulizer solution 2.5 mg (has no administration in time range) dexAMETHasone (DECADRON) injection solution 10 mg (10 mg intravenous Given 01/19/242245) albuterol 2.5 mg/0.5 mL nebulizer solution 10 mg (10 mg nebulization Given 01/19/241) CURRENT HOME MEDICATIONS Current Facility-Administered Medications: ??? albuterol 2.5 mg /3 mL (0.083 %) nebulizer solution 2.5 mg, 2.5 mg, nebulization, Q4H KAYE (RT),She Camp PA ??? ondansetron ODT (ZOFRAN-ODT) disintegrating tablet 4 mg, 4 mg, oral, Q6H PRN OR ondansetron(ZOFRAN) injection 4 mg, 4 mg, intravenous, Q6H PRN, She Camp, KRISSY Current Outpatient Medications: ??? albuterol 2.5 mg /3 mL (0.083 %) nebulizer solution, USE 1 VIAL VIA NEBULIZER EVERY 4 TO 6 HOURS NEEDED (Patient not taking: Reported on 06/17/2023), Disp: , Rfl: ??? albuterol HFA (PROAIR HFA) 90 mcg/actuation inhaler, inhale 2 puff by inhalation route every 4 - 6 hours as needed (Patient not taking: Reported on 06/17/2023), Disp: 1 Inhaler, Rfl: 1 ??? amLODIPine (NORVASC) 5 mg tablet, , Disp: , Rfl: ??? apixaban (Eliquis) 5 mg tablet, Take 1 tablet (5 mg total) by mouth every 12 (twelve) hours, Disp: 180 tablet, Rfl: 3 ??? aspirin 81 mg enteric coated tablet, Take 1 tablet (81 mg total) by mouth daily, Disp: , Rfl: ??? calcium citrate-vitamin D3 200 mg-3.125 mcg (125 unit) tablet, Take 1 tablet by mouth daily, Disp: , Rfl: ??? cholecalciferol (VITAMIN D-3) 5,000 unit tablet, Take 1 tablet (5,000 Units total) by mouth daily. (Patient not taking: Reported on 2023), Disp: 90 tablet, Rfl: 0 ??? docusate sodium (Colace) 100 mg capsule, Take 1 capsule (100 mg total) by mouth 2 (two) times aday for 14 days (Patient not taking: Reported on 02/26/2023), Disp: 28 capsule, Rfl: 2 ??? fluticasone propionate (FLONASE) 50 mcg/actuation nasal spray, Administer 50 sprays into each nostril 2 (two) times a day as needed (Patient not taking: Reported on 06/17/2023), Disp: , Rfl: ??? irbesartan-hydroCHLOROthiazide (AVALIDE) 300-12.5 mg per tablet, Take 1 tablet by mouth daily, Disp: 90 tablet, Rfl: 3 ??? meclizine (ANTIVERT) 12.5 mg tablet, Take 1 tablet (12.5 mg total) by mouth 3 (three) times a day as needed for dizziness (Patient not taking: Reported on 06/17/2023), Disp: 30 tablet, Rfl: 0 ??? metoprolol tartrate (LOPRESSOR) 25 mg immediate release tablet, Take 1 tablet (25 mg total) by mouth 2 (two) times a day, Disp: 60 tablet, Rfl: 11 ??? montelukast (SINGULAIR) 10 mg tablet, Take 1 tablet (10 mg total) by mouth nightly, Disp: , Rfl: ??? mjgnqqaw-wbr-iumdt-vit K-lycop (ONE-A-DAY MEN'S MULTIVITAMIN) 400-20-300 mcg tablet, Take one by mouth one time per day, Disp: 0, Rfl: 0 ??? ondansetron (ZOFRAN) 4 mg tablet, Take 1 tablet (4 mg total) by mouth every 6 (six) hours (Patient not taking: Reported on 06/17/2023), Disp: 12 tablet, Rfl: 0 ??? simvastatin (ZOCOR) 10 mg tablet, Take 1 tablet (10 mg total) by mouth nightly, Disp: , Rfl: ??? tamsulosin (FLOMAX) 0.4 mg capsule,extended release 24hr, take 1 capsule by oral route every day 1/2 hour following the same meal each day, Disp: 0, Rfl: 0 ??? traMADoL (ULTRAM) 50 mg tablet, Take 0.5 tablets (25 mg total) by mouth every 6 (six) hours as needed for pain (Patient not taking: Reported on 06/17/2023), Disp: 25 tablet, Rfl: 0 ??? Gideon Truongta 200-62.5-25 mcg inhaler, , Disp: , Rfl: ALLERGIES Allergies Allergen Reactions ??? Miguel A Inhibitors Cough Reaction: Cough, ??? Acetaminophen Unknown SOCIAL HISTORY Social History Tobacco Use ??? Smoking status: Former Current packs/day: 0.00 Types: Cigarettes Quit date: 2011 Years since quittin.2 ??? Smokeless tobacco: Never Substance and Sexual Activity ??? Drug use: Yes ??? Sexual activity: Defer Partners: Female Alcohol Use: Not At Risk (01/24/2022) AUDIT-C ??? Frequency of Alcohol Consumption: Never ??? Average Number of Drinks: Not on file ??? Frequency of Binge Drinking: Not on file PHYSICAL EXAM TRIAGE VITAL SIGNS: ED Triage Vitals [01/19/24 1345] Temp Pulse Resp BP SpO2 36.4 ??C (97.5 ??F) 77 16 145/71 95 % Temp src Heart Rate Source Patient Position BP Location FiO2 (%) Temporal -- -- -- -- Height Height Method Weight Weight Method 1.702 m (5' 7 ) Stated 88.9 kg (196 lb) Stated Physical Exam Constitutional: General: He is awake. He is not in acute distress. Appearance: Normal appearance. He is well-developed and overweight. He is not ill-appearing, toxic-appearing or diaphoretic. HENT: Head: Normocephalic and atraumatic. Jaw: There is normal jaw occlusion. Right Ear: Hearing and external ear normal. Left Ear: Hearing and external ear normal. Nose: Nose normal. Mouth/Throat: Mouth: Mucous membranes are moist. Cardiovascular: Rate and Rhythm: Normal rate and regular rhythm. Pulses: Normal pulses. Heart sounds: Normal heart sounds, S1 normal and S2 normal. No murmur heard. No friction rub. No gallop. No S3 or S4 sounds. Pulmonary: Effort: Pulmonary effort is normal. Breath sounds: Examination of the left-lower field reveals wheezing. Wheezing present. Musculoskeletal: Cervical back: Full passive range of motion without pain, normal range of motion and neck supple. Right lower le+ Pitting Edema present. Left lower le+ Pitting Edema present. Neurological: General: No focal deficit present. Mental Status: He is alert, oriented to person, place, and time and easily aroused. Cranial Nerves: Cranial nerves 2-12 are intact. Sensory: Sensation is intact. Motor: Motor function is intact. Coordination: Coordination is intact. Gait: Gait is intact. Psychiatric: Behavior: Behavior is cooperative. LABS Labs Reviewed CBC WITH AUTO DIFFERENTIAL - Abnormal Result Value WBC 10.3 (*) Hgb 13.6 Hct 41.1 Plt 306 MPV 9.0 (*) RBC 4.29 (*) MCV 95.8 MCH 31.7 MCHC 33.1 RDW CV 13.3 RDW SD 47.1 NRBC abs 0.00 COMPREHENSIVE METABOLIC PANEL - Abnormal Sodium 136 Potassium, pl 4.9 Chloride 99 CO2 25 Anion gap 12 BUN 27 (*) Creatinine 1.44 (*) Glucose 109 Calcium 9.9 Bilirubin, total 0.4 Protein, pl 7.3 Albumin 3.5 Alk phos 108 ALT 15 AST 27 DIFFERENTIAL AUTO - Abnormal Neutrophil abs 7.0 (*) Imm gran abs 0.0 Lymphocyte abs 2.2 Monocyte abs 0.6 Eosinophil abs 0.4 Basophil abs 0.1 Neutrophil pct 68.1 Imm gran pct 0.2 Lymphocyte pct 21.7 Monocyte pct 5.9 Eosinophil pct 3.4 Basophil pct 0.7 D-DIMER, QUANTITATIVE - Abnormal D-Dimer 580 (*) URINALYSIS AND REFLEX TO MICROSCOPIC AND CULTURE Color, ur Yellow Clarity, ur Clear Specific gravity, ur 1.014 pH, urine 6.5 Protein, ur ql Trace Glucose, ur ql Negative Ketones, ur Negative Bilirubin, ur Negative Blood, ur Negative Urobilinogen, ur <2.0 Nitrite, ur Negative Leukocyte esterase, ur Negative UA reflex comment Value: Reflex conditions for microscopic UA and culture not met. INFLUENZA A/B, RSV, AND COVID-19 PCR COVID-19 RNA Negative Influenza A RNA Negative Influenza B RNA Negative RSV RNA Negative Narrative: Is the Patient experiencing symptoms consistent with COVID?->Yes EGFR eGFR 49 TROPONIN T HIGH-SENSITIVITY SERIES (BASELINE, 2HR, 4HR, 6HR) Trop T hs 21 PRO B-TYPE NATRIURETIC PEPTIDE NT-proBNP 439 TROPONIN T HIGH-SENSITIVITY 2-HOUR TROPONIN T HIGH-SENSITIVITY 4-HR TROPONIN T HIGH-SENSITIVITY 6-HOUR RADIOLOGY ECG 12 lead Result Date: 01/19/2024 Narrative: Vent Rate: 74 bpm RR Interval: 810 msec UT Interval: 141 msec QRS Duration: 105 msec QT Interval: 359 msec QTC Interval: 386 msec P-R-T [place]: 10 - -5 - 77 degrees IMPRESSION: SINUS RHYTHM WITH OCCASIONAL VENTRICULAR PREMATURE COMPLEXES NONSPECIFIC T-WAVE ABNORMALITY BORDERLINE ECG Compared to prior EKG, heart rate has decreased Sinus rhythm replaced atrial fibrillation PVCs are new Electronically Signed By: Reji Maloney MD EMG/NCV - Impression: History: This is a 83 years old [...] peak latency comparison study using ring electrodes showedSNAP peak latency 2.0 ms for right radial nerve and 4.5 ms for right median nerve. EMG studies: The concentric needle electrode examination was performed on right FDI, APB, flexor carpi radialis, biceps and deltoid. There was no evidence of acute or chronic denervation or reinnervation. The interference pattern is full in all muscle tested. Impression: This is an abnormal study. There was electrophysiologic evidence suggestive of: 1. 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 The needle EMG study of right upper extremity didnot show any ongoing denervation. The clinical correlation is recommended. EKG EKG: IMPRESSION: SINUS RHYTHM WITH OCCASIONAL VENTRICULAR PREMATURE COMPLEXES NONSPECIFIC T-WAVE ABNORMALITY BORDERLINE ECG Compared to prior EKG, heart rate has decreased Sinus rhythm replaced atrial fibrillation PVCs are new ED COURSE/MEDICAL DECISION MAKING Differential diagnosis included but not limited to pulmonary embolism, arrhythmia, hypoxia, COPD exacerbation, pneumonia, viral illness I discussed all diagnostic test results and need for admission with patient. Patient is agreeable with admission plans. All questions answered. Anticipate admission greater than 2 midnights. Patient's medical records were reviewed. ED Course as of 01/19/246 Time: 01/18 2101 Value: Creatinine(!): 1.44 Comment: Stable By: She Camp PA Time: 01/18 2155 Value: D-Dimer(!): 580 Comment: Normal age adjusted ddimer By: She Camp PA Time: 01/19 2156 Value: XR Chest 1 Vw Portable Comment: IMPRESSION: Streaky opacities in the right base favors atelectasis. By: She Camp PA Time: 01/18 2230 Value: CT Head WO Contrast Comment: IMPRESSION: No acute intracranial findings. By: She Camp PA Time: 01/18 2253 Comment: Case discussed with the hospitalist who accepted patient for admission. By: She Camp PA Time: 01/18 1349 Comment: Patient does had a few seconds of what looks like SVT on the monitor. It was printed out and a sticker was placed in his scanned into the chart. By: Ana Bee MD Procedures FINAL IMPRESSION Near syncope COPD exacerbation (HCC) DISPOSITION: Admit This examination was transcribed using the [employer] voice recognition system without human executive sous chef. In an effort to expedite patient care, this report has not been adjusted for typographical, grammatical, and syntax by a trained biomedical engineering technician. She Camp PA 01/19/24 9167 Cosigned by Ana Bee MD at 01/20/2024 8:01 AM CDT * Krys Baker RN - 01/19/2024 1:44 PM CDT Pt to ED for feeling like he was going to pass out multiple times today. documented in this encounter Miscellaneous Notes * Plan of Care - Reta Dennis RN - 01/22/2024 2:53 PM CDT Problem: Discharge Planning Goal: Understanding discharge needs will improve Outcome: Adequate for Discharge Problem: Respiratory Goal: Ability to maintain a clear airway will improve Outcome: Adequate for Discharge Problem: Cardiovascular Goal: Maintains optimal cardiac output and hemodynamic stability Outcome: Adequate for Discharge Goal: Absence of cardiac dysrhythmias or at baseline Outcome: Adequate for Discharge Goal: Cardiovascular status will improve Outcome: Adequate for Discharge Goals: Clinical Goals for the Shift: vss, pt will be free of falls or injurys [facility] Patient Centered Goal for Treatment: pt to remain hemodynamically stable. Summary: discharged in stable condition per wheelchair to wifes car with discharge instructions. * Plan of Care - Ju Abreu RN - 01/22/2024 3:35 AM CDT Goals: Clinical Goals for the Shift: vss, pt will be free of falls or injurys [facility] Patient Centered Goal for Treatment: pt to remain hemodynamically stable. Summary: Patients vitals have remained within normal limits and has been free of falls this shift. * Plan of Care - Jillian Richard RN - 01/21/2024 6:08 PM CDT Problem: Discharge Planning Goal: Understanding discharge needs will improve Outcome: Ongoing Flowsheets (Taken 01/21/2024816) Understanding of discharge needs will improve: Discuss information regarding discharge instructions Problem: Respiratory Goal: Ability to maintain a clear airway will improve Outcome: Ongoing Flowsheets (Taken 01/21/2024816) Ability to maintain a clear airway will improve: Evaluate breath sounds Problem: Cardiovascular Goal: Maintains optimal cardiac output and hemodynamic stability Outcome: Ongoing Flowsheets (Taken 01/21/2024816) Maintain optimal cardiac output and hemodynamic Stability: Monitor vital signs, rhythm, and trends Goal: Absence of cardiac dysrhythmias or at baseline Outcome: Ongoing Flowsheets (Taken 01/21/2024816) Absence of cardiac dysrhythmias or at baseline: Administer antiarrhythmic and heart rate control medications as ordered Goal: Cardiovascular status will improve Outcome: Ongoing Flowsheets (Taken 01/21/2024816) Cardiovascular status will improve: Monitor for signs and symptoms of chest pain Goals: Clinical Goals for the Shift: Patient will tolerate food and fluids well and will have testing doneas ordered Summary: Patient has been down for testing this day and continues to follow treatment regime. Patient Had altered labs this day with MD wanting to continue to monitor for at least another day. Patient is up and about in his room without difficulty * Plan of Care - Leoncio Albert RN - 01/21/2024 3:18 AM CDT Problem: Discharge Planning Goal: Understanding discharge needs will improve Outcome: Progressing Problem: Respiratory Goal: Ability to maintain a clear airway will improve Outcome: Progressing Problem: Cardiovascular Goal: Maintains optimal cardiac output and hemodynamic stability Outcome: Progressing Goal: Absence of cardiac dysrhythmias or at baseline Outcome: Progressing Goal: Cardiovascular status will improve Outcome: Progressing Goals: Clinical Goals for the Shift: Stable VS, maintain comfort and safety. Summary: Patient has been hemodynamically stable and free from harm. He had a short run of SVT prior to receiving evening dose of metoprolol. No ectopy following that dose. He has been able to remainoff oxygen overnight. * Plan of Care - Jillian Richard RN - 01/20/2024 5:53 PM CDT Problem: Discharge Planning Goal: Understanding discharge needs will improve Outcome: Ongoing Flowsheets Taken 01/20/2024 1752 Understanding of discharge needs will improve: Identify discharge learning needs (meds, wound care,etc.) Taken 01/20/2024 0800 Understanding of discharge needs will improve: Discuss information regarding discharge instructions Note: New medication regime instruction with patient Problem: Respiratory Goal: Ability to maintain a clear airway will improve Outcome: Ongoing Flowsheets (Taken 01/20/2024 0800) Ability to maintain a clear airway will improve: Implement actions to maintain a patent airway Problem: Cardiovascular Goal: Maintains optimal cardiac output and hemodynamic stability Outcome: Ongoing Flowsheets (Taken 01/20/2024 0800) Maintain optimal cardiac output and hemodynamic Stability: Monitor vital signs, rhythm, and trends Goal: Absence of cardiac dysrhythmias or at baseline Outcome: Ongoing Flowsheets (Taken 01/20/2024 0800) Absence of cardiac dysrhythmias or at baseline: Administer antiarrhythmic and heart rate control medications as ordered Goal: Cardiovascular status will improve Outcome: Ongoing Flowsheets (Taken 01/20/2024 0800) Cardiovascular status will improve: Instruct immediate reporting of any chest discomfort or pain Goals: Clinical Goals for the Shift: Patient will tolerate food and fluids well and will have testing doneas ordered Summary: Patient having tolerated food and fluids well this day. Patient having improved vital signs and no longer requires O2 and his Spo2 levels have been within normal limits. Patient has walked the halls with family and has had multiple family members in to see him today. Patient cheerful and happy. Patient instructed to lower his caffeine intake to assist with heart rate. He states he will * Initial Assessments - Vidhya Cotter RN - 01/20/2024 3:04 PM CDT STACIE Initial Assessment Interview Note Information Obtained From: Patient (01/20/24 150) Admission Source: home Impression: near syncope Plan Includes: evaluation Primary Source of Transportation: Does the patient need discharge transport arranged?: No (01/20/24 1502) Health Insurance Coverage: [employer] Medicare Prescription Coverage: yes Pharmacy: [id number] [place], [place] - [address] [facility] [phone] [facility] - [facility] [address] [facility] [address] [facility] [address] Primary Care Provider: Cassius London MD Prior to Admission: Functional Status: Independent with ADLs Primary Caregiver: Self Support System: Spouse/Significant Other, Children, Family members Home Care Services: No Outpatient Services: No Durable Medical Equipment: Nebulizer Living Arrangements: Spouse/significant other Type of Residence: Private residence Does patient wish to return to care facility?: Yes, wishes to return Will the care facility allow the patient to return?: Yes, patient can return Steps in home?: Yes, Inside home, Yes, Outside of home Number of steps inside: 10 steps Number of steps outside: 4 steps Medication management: Independent (01/20/24 0104) SDOH: Transportation: In the past 12 months, has lack of transportation kept you from medical appointments or from getting medications?: No In the past 12 months, has lack of transportation kept you from meetings, work, or from getting things needed for daily living?: No (01/20/241501) Financial Resource: How hard is it for you to pay for the very basics like food, housing, medical care, and heating?: Not very hard (01/20/241501) Housing: In the last 12 months, was there a time when you were not able to pay the mortgage or rent on time?: No In the last 12 months, how many places have you lived?: 1 In the last 12 months, was there a time when you did not have a steady place to sleep or slept in ashelter (including now)?: No (01/20/241501) Utilities: No, (01/20/241501) Social Connections: In a typical week, how many times do you talk on the phone with family, friends, or neighbors?: More than three times a week How often do you get together with friends or relatives?: Three times a week How often do you attend baptism or yazidi services?: Never Do you belong to any clubs or organizations such as baptism groups, unions, fraternal or athletic groups, or school groups?: No How often do you attend meetings of the clubs or organizations you belong to?: Never Are you , , , , never , or living with a partner?: (01/20/241501) Food Insecurity: Within the past 12 months, you worried that your food would run out before you got the money to buymore.: Never true Within the past 12 months, the food you bought just didn't last and you didn't have money to get more.: Never true (01/20/241501) Patient expects to be Discharged to: Private residence, (01/20/241501) Additional Information: Patient lives at home with his . He is independent with mobility and adls. No mobility devices used. He has a nebulizer. He doesn't have any o2 at home. Patient is able todrive. They have children and grandchildren for support. Discharge plan is to return to home and his will provide transportation. Will continue to follow. Patient's Identified Problem/Goal Problem: Ensure acute medical needs are met and that patient has a safe discharge plan. Goal: Secure a discharge plan that patient/family are agreeable with and ensure patient has continuum of care. Case management will follow for discharge planning and send referrals as needed. Vidhya Cotter RN * Plan of Care - Mar Roche RN - 01/20/2024 3:38 AM CDT Goals: Clinical Goals for the Shift: Pt is a new admission. Pt will remain hemodynamically stable. VSS. Ptwill remain free of injuries. Pt will maintain O2 sats >92% Summary: Pt remains hemodynamically stable. VSS. Pt states that pain is controlled. Pt remains freefrom injuries. Pt maintaining O2 sats >92% on 3L per NC O2. Call light within reach. Pt calling out appropriately. Will report changes in condition to MD. documented in this encounter Plan of Treatment Not on file documented as of this encounter Procedures Procedure Name Priority Date/Time Associated Diagnosis Comments EGFR Routine 01/22/2024 5:19 AM CDT CBC WITHOUT DIFFERENTIAL Routine 01/22/2024 5:19 AM CDT PHOSPHORUS Routine 01/22/2024 5:19 AM CDT MAGNESIUM Routine 01/22/2024 5:19 AM CDT BASIC METABOLIC PANEL Routine 01/22/2024 5:19 AM CDT US VEIN DUPLEX LOWER EXTREMITY BILATERAL COMPLETE ED Urgent/IP Urgent 01/21/2024 9:06 AM CDT EGFR Routine 01/21/2024 5:23 AM CDT CBC WITHOUT DIFFERENTIAL Routine 01/21/2024 5:23 AM CDT PHOSPHORUS Routine 01/21/2024 5:23 AM CDT MAGNESIUM Routine 01/21/2024 5:23 AM CDT BASIC METABOLIC PANEL Routine 01/21/2024 5:23 AM CDT US CAROTIDS DUPLEX BILATERAL ED Urgent/IP Urgent 01/20/2024 12:33 PM CDT TRANSTHORACIC ECHO (TTE) COMPLETE W DOPPLER/CF W CONTRAST Routine 01/20/2024 11:17 AM CDT EGFR STAT 01/20/2024 8:24 AM CDT CBC WITHOUT DIFFERENTIAL STAT 01/20/2024 8:24 AM CDT PHOSPHORUS STAT 01/20/2024 8:24 AM CDT MAGNESIUM STAT 01/20/2024 8:24 AM CDT HEPATIC FUNCTION PANEL STAT 01/20/2024 8:24 AM CDT BASIC METABOLIC PANEL STAT 01/20/2024 8:24 AM CDT TROPONIN T HIGH-SENSITIVITY 4-HR Timed 01/20/2024 5:17 AM CDT TROPONIN T HIGH-SENSITIVITY 2-HOUR Timed 01/20/2024 12:[address] HEAD WO CONTRAST ED 01/19/2024 9 :49 PM CDT INFLUENZA A/B, RSV, AND COVID-19 PCR Routine 01/19/2024 9:35 PM CDT PRO B-TYPE NATRIURETIC PEPTIDE STAT 01/19/2024 9:35 PM CDT D-DIMER, QUANTITATIVE STAT 01/19/2024 9:35 PM CDT TROPONIN T HIGH-SENSITIVITY SERIES (BASELINE, 2HR, 4HR, 6HR) Add-On 01/19/2024 9:25 PM CDT DIFFERENTIAL AUTO STAT 01/19/2024 9:2 5 PM CDT CBC WITH AUTO DIFFERENTIAL STAT 01/19/2024 9:25 PM CDT XR CHEST 1 VIEW ED 01/19/2024 9:14 PM CDT URINALYSIS AND REFLEX TO MICROSCOPIC AND CULTURE STAT 01/19/2024 2:53 PM CDT EGFR STAT 01/19/2024 2:03 PM CDT COMPREHENSIVE METABOLIC PANEL STAT 01/19/2024 2:03 PM CDT ECG 12-LEAD STAT 01/19/2024 1:50 PM CDT documented in this encounter Results * MCT Mobile Cardiac Telemetry Event Monitor (02/01/2024 2:28 PM CDT) Anatomical Region Laterality Modality Electrocardiogra phy 02/01/2024 2:30 PM CDT Narrative 03/09/2024 3:35 PM CDT [address] [address] EVENT MONITOR Patient Name: CLARITA JUAN L : 1940 Study Date: 02/01/2024 2:30:00 PM Gender: M Tech: ??Ref Provider: SOPHIA LEAHY Height(Cm): ??BSA: Weight(Kg): ? Order Provider: SOPHIA LEAHY - PROCEDURES: Event Report: Event Monitor Report. [...] Procedure Note Raffy Oneil MD - 03/09/[address] [address] EVENT MONITOR Patient Name: CLARITA JUAN L : 1940 Study Date: 02/01/2024 2:30:00 PM Gender: M Tech: Ref Provider: SOPHIA LEAHY Height(Cm): BSA: Weight(Kg): Order Provider: SOPHIA LEAHY - PROCEDURES: Event Report: Event Monitor Report. [...] By: Raffy Oneil 2024-03-09 15:35:13 CDT us Sophia Leahy NP [facility] CARDIAC SERVICES PROCEDUR ES Final Result * eGFR (01/22/2024 5:19 AM CDT) eGFR 43 mL/min/1. 73 m2 Comment: Interpretive Data Reference Interval Normal ?>/= 90 mL/min/1.73m2 Mildly decreased* ? 60 - 89 mL/min/1.73m2 Mildly to moderately decreased ?45 - 59 mL/min/1.73m2 Moderately to severely decreased ??30 - 44 mL/min/1.73m2 Severely decreased ?15 - 29 mL/min/1.73m2 Kidney Failure ?< 15 ??mL/min/1.73m2 *Relative to young adult level Estimated glomerular filtration rate is determined by the 2020 CKD-EPI equation recommended by the National Kid[employer] (A Unifying Approach to GFR Estimation: Recommendations of the NKF-ASK Task Force on Reassessing the Inclusion of Race in Diagnosing Kidney Disease, JASN 2020). The CKD-EPI equation should not be used for patients with unstable renal function and has not been validated in children and those over 70. Current interpretive data was last reviewed 2021. Blood 01/22/2024 5:19 AM CDT 01/22/2024 5:43 AM CDT Joey Parson NP LAB BLOOD ORDERABLE S Final Result [facility] ([place] 1 [facility] [address] * Phosphorus (01/22/2024 5:19 AM CDT) Phosphorus, pl 3.4 2.3 - 4.5 mg/dL Blood 01/22/2024 5:19 AM CDT 01/22/2024 5:43 AM CDT Joey Parson NP LAB BLOOD ORDERABLE S Final Result Performing Organization Address City/[facility]/ZIP Co de Phone Number [facility] ([place]) 1 [facility] [place] [address] * Magnesium (01/22/2024 5:19 AM CDT) Magnesium 2.2 1.4 - 2.5 mg/dL Blood 01/22/2024 5:19 AM CDT 01/22/2024 5:43 AM CDT Joeyfritz Olivabuck Parson MANAGER BAN[facility]ET LAB BLOOD ORDERABLE S Final Result [facility] ([place]) 1 [facility] [place] [address] * (ABNORMAL) Basic metabolic panel (01/22/2024 5:19 AM CDT) Sodium 138 135 - 145 mmol/L Potassium, pl 3.9 3.3 - 4.9 mmol/L [facility] ([place]) Chloride 102 97 - 110 mmol/L [facility] ([place]) CO2 25 22 - 32 mmol/L [facility] ([place]) Anion gap 12 2 - 15 mmol/L [facility] ([place]) BUN 45(H) 6 - 25 mg/dL [facility] ([place]) Creatinine 1.60(H) 0.80 - 1.30 mg/dL [facility] ([place]) Glucose 102 70 - 199 mg/dL [facility] ([place]) Comment: Interpretive Data Fasting glucose >/= 126 mg/dl is diagnostic for diabetes. ?? Fasting is defined as no caloric intake for at least 8 hours. Fasting glucose between 100 mg/dl to 125 mg/dl is diagnostic of prediabetes. In a patient with classic symptoms of hyperglycemia or hyperglycemic crisis, a random glucose >/= 200 mg/dl is diagnostic for diabetes. In the absence of unequivocal hyperglycemia, results should be confirmed by repeat testing. The classification and Diagnosis of Diabetes Diabetes Care 2021; 46: S19-S40. Current interpretive data was last revised 2022. Calcium 8.8 8.5 - 10.3 mg/dL [facility] ([place]) Blood 01/22/2024 5:19 AM CDT 01/22/2024 5:43 AM CDT us Joey Parson MANAGER [facility] LAB BLOOD ORDERABLE S Final Result [facility] ([place]) 1 [facility] [employer] [place] [address] * (ABNORMAL) CBC without differential (01/22/2024 5:19 AM CDT) WBC 16.8(H) 3.8 - 9.9 K/cumm Hgb 12.0(L) 13.0 - 17.5 g/dL [facility] ([place]) Hct 36.6(L) 38.9 - 50.3 % [facility] ([place]) Plt 282 150 - 400 K/cumm [facility] ([place]) MPV 9.4 9.1 - 12.3 fL [facility] ([place]) RBC 3.70(L) 4.30 - 5.80 M/cumm [facility] ([place]) MCV 98.9(H) 81.3 - 96.4 fL [facility] ([place]) MCH 32.4 27.1 - 33.3 pg [facility] ([place]) MCHC 32.8 32.3 - 35.7 g/dL [facility] ([place]) RDW CV 13.9 11.1 - 14.9 % [facility] ([place]) RDW SD 50.4(H) 35.7 - 48.1 fL [facility] ([place]) NRBC abs 0.00 0.00 - 0.01 K/cumm [facility] ([place]) Blood 01/22/2024 5:19 AM CDT 01/22/2024 5:43 AM CDT Joey Parson MANAGER [facility] LAB BLOOD ORDERABLE S Final Result [facility] ([place]) 1 [facility] [employer] [place] [address] * US Vein Duplex Lower Extremity Bilateral Complete (01/21/2024 9:06 AM CDT) Anatomical Region Laterality Modality Vascular Bilateral Ultrasound 01/21/2024 9:09 AM CDT Narrative 01/21/2024 9:30 AM CDT EXAM DESCRIPTION: ?? US VEIN DUPLEX LOWER EXTREMITY BILATERAL COMPLETE REASON FOR STUDY: ?? leukocytosis, tachycardia, leg swelling ?? TECHNIQUE: Grayscale, color and spectral Doppler imaging of the deep venous system of the bilateral lower extremities was performed. Images stored on PACS. COMPARISON: ?? None available FINDINGS: The bilateral common femoral, visualized profunda femoral, superficial femoral, and popliteal veins are readily compressible bilaterally with no intraluminal thrombus on horowitz scale images. There is normal color and spectral Doppler signal, including augmentation. Visualized calf veins are patent. ?? Greater saphenous vein appears patent. IMPRESSION: No lower extremity deep venous thrombosis. THIS IS AN ELECTRONICALLY VERIFIED FINAL REPORT 01/21/2024 9:30 AM - Electronically signed by ??Mitchel Allen M.D. AG: DION D: ??01/21/2024 9:30 AM T: ??01/21/2024 9:30 AM Report ID: [id number] Reading Location: ??[id number] Procedure Note Mitchel Allen MD - 01/21/2024 EXAM DESCRIPTION: US VEIN DUPLEX LOWER EXTREMITY BILATERAL COMPLETE REASON FOR STUDY: leukocytosis, tachycardia, leg swelling TECHNIQUE: Grayscale, color and spectral Doppler imaging of the deepvenous system of the bilateral lower extremities was performed. Images stored onPACS. COMPARISON: None available FINDINGS: The bilateral common femoral, visualized profunda femoral, superficial femoral, and popliteal veins are readily compressible bilaterally with no intraluminal thrombus on horowitz scale images. There is normal color andspectral Doppler signal, including augmentation. Visualized calf veins are patent. Greater saphenous vein appears patent. IMPRESSION: No lower extremity deep venous thrombosis. THIS IS AN ELECTRONICALLY VERIFIED FINAL REPORT 01/21/2024 9:30 AM - Electronically signed by Mitchel Allen M.D. AG: DION Report ID: [id number] Reading Location: [id number] Joey Parson MANAGER BAN[facility] IMG US PROCEDURES F inal Result * eGFR (01/21/2024 5:23 AM CDT) eGFR 36 mL/min/1. 73 m2 Comment: Interpretive Data Reference Interval Normal ?>/= 90 mL/min/1.73m2 Mildly decreased* ? 60 - 89 mL/min/1.73m2 Mildly to moderately decreased ?45 - 59 mL/min/1.73m2 Moderately to severely decreased ??30 - 44 mL/min/1.73m2 Severely decreased ?15 - 29 mL/min/1.73m2 Kidney Failure ?< 15 ??mL/min/1.73m2 *Relative to young adult level Estimated glomerular filtration rate is determined by the 2020 CKD-EPI equation recommended by the National Kidney Foundation (A Unifying Approach to GFR Estimation: Recommendations of the NKF-ASK Task Force on Reassessing the Inclusion of Race in Diagnosing Kidney Disease, JASN 2020). The CKD-EPI equation should not be used for patients with unstable renal function and has not been validated in children and those over 70. Current interpretive data was last reviewed 2021. Blood 01/21/2024 5:23 AM CDT 01/21/2024 5:31 AM CDT us Joey Parson NP LAB BLOOD ORDERABLE S Final Result [facility] ([place]) 1 [facility] [place] [address] * Phosphorus (01/21/2024 5:23 AM CDT) Phosphorus, pl 3.3 2.3 - 4.5 mg/dL Blood 01/21/2024 5:23 AM CDT 01/21/2024 5:31 AM CDT Joey Parson MANAGER B[facility]ET LAB BLOOD ORDERABLE S Final Result [facility] ([place]) 1 [facility] [place] [address] * Magnesium (01/21/2024 5:23 AM CDT) Pathologist [facility] Magnesium 2.4 1.4 - 2.5 mg/dL Blood 01/21/2024 5:23 AM CDT 01/21/2024 5:31 AM CDT Joey Erica Parson MANAGER B[facility]ET LAB BLOOD ORDERABLE S Final Result Performing Organization Address City/[facility] Co de Phone Number [facility] ([place]) 1 [facility] [place] [address] * (ABNORMAL) Basic metabolic panel (01/21/2024 5:23 AM CDT) Pathologist [facility] Sodium 136 135 - 145 mmol/L Potassium, pl 4.1 3.3 - 4.9 mmol/L [facility] ([place]) Chloride 96(L) 97 - 110 mmol/L [facility] ([place]) CO2 27 22 - 32 mmol/L [facility] ([place] Anion gap 13 2 - 15 mmol/L [facility] ([place]) BUN 48(H) 6 - 25 mg/dL [facility] ([place]) Creatinine 1.86(H) 0.80 - 1.30 mg/dL [facility] ([place]) Glucose 128 70 - 199 mg/dL [facility] ([place]) Comment: Interpretive Data Fasting glucose >/= 126 mg/dl is diagnostic for diabetes. ?? Fasting is defined as no caloric intake for at least 8 hours. Fasting glucose between 100 mg/dl to 125 mg/dl is diagnostic of prediabetes. In a patient with classic symptoms of hyperglycemia or hyperglycemic crisis, a random glucose >/= 200 mg/dl is diagnostic for diabetes. In the absence of unequivocal hyperglycemia, results should be confirmed by repeat testing. The classification and Diagnosis of Diabetes Diabetes Care 2021; 46: S19-S40. Current interpretive data was last revised 2022. Calcium 9.7 8.5 - 10.3 mg/dL [facility] ([place]) Blood 01/21/2024 5:23 AM CDT 01/21/2024 5:31 AM CDT Joey Parson MANAGER [facility]AN[employer]ET LAB BLOOD ORDERABLE S Final Result [facility] ([place]) 1 [facility] [place] [address] * (ABNORMAL) CBC without differential (01/21/2024 5:23 AM CDT) WBC 21.3(H) 3.8 - 9.9 K/cumm Hgb 12.8(L) 13.0 - 17.5 g/dL [facility] ([place]) Hct 38.2(L) 38.9 - 50.3 % [facility] ([place]) Plt 316 150 - 400 K/cumm [facility] ([place]) MPV 9.2 9.1 - 12.3 fL [facility] ([place]) RBC 4.00(L) 4.30 - 5.80 M/cumm [facility] ([place]) MCV 95.5 81.3 - 96.4 fL [facility] ([place]) MCH 32.0 27.1 - 33.3 pg [facility] ([place]) MCHC 33.5 32.3 - 35.7 g/dL [facility] ([place]) RDW CV 13.6 11.1 - 14.9 % [facility] ([place]) RDW SD 47.8 35.7 - 48.1 fL [facility] ([place]) NRBC abs 0.00 0.00 - 0.01 K/cumm [facility] ([place]) Blood 01/21/2024 5:23 AM CDT 01/21/2024 5:31 AM CDT us Joey Olivalle Gayle MANAGER [facility] LAB BLOOD ORDERABLE S Final Result [facility] ([place]) 1 [facility] [place] [address] * US Carotids Duplex Bilateral (01/20/2024 12:33 PM CDT) Anatomical Region Laterality Modality Vascular Bilateral Ultrasound 01/20/2024 12:4 3 PM CDT Narrative 01/20/2024 12:48 PM CDT EXAM DESCRIPTION: ?? US CAROTIDS DUPLEX BILATERAL REASON FOR STUDY: ?? recurrent near syncope ?? TECHNIQUE: Horowitz scale, color Doppler and spectral Doppler imaging were performed. ??Velocity criteria are extrapolated from diameter as defined by the Society of Radiologists in Ultrasound Consensus Conference. All velocity measurements are in cm/sec. COMPARISON: ?? None available. FINDINGS: Right: ??Atherosclerotic plaque at the carotid bifurcation and proximal cervical internal carotid artery. Distal CCA Peak Systolic Velocity: 87.4 Distal CCA End Diastolic Velocity: 14.4 Peak ICA Systolic Velocity: 76.6 ICA End Diastolic Velocity: 16.5 Peak ICA/CCA Systolic Ratio: 0.88 Right Vertebral Artery: ??Antegrade direction of flow. Left: ??Atherosclerotic plaque at the carotid bifurcation and proximal cervical internal carotid artery. Distal CCA Peak Systolic Velocity: 99.2 Distal CCA End Diastolic Velocity: 23 Peak ICA Systolic Velocity: 81.4 ICA End Diastolic Velocity: 19.2 Peak ICA/CCA Systolic Ratio: 0.82 Left Vertebral Artery: ??Antegrade direction of flow. IMPRESSION: Velocities correspond to a ??less than 50 ??percent ??diameter stenosis of the right ICA. Velocities correspond to a ??less than 50 ??percent ??diameter stenosis of the left ICA. Antegrade direction of flow of the bilateral vertebral arteries. REFERENCE: Consensus Panel Horowitz-Scale and Doppler US Criteria for Diagnosis of ICA Stenosis. No stenosis: ICA PSV <125*, 0 percent plaque, ICA/CCA PSV Ratio <2.0, ICA EDV <40*. <50 percent stenosis: ICA PSV <125*, <50 percent plaque, ICA/CCA PSV Ratio <2.0, ICA EDV <40*. 50-69 percent stenosis: ICA PSV 125-230*, >=50 percent plaque, ICA/CCA PSV Ratio 2.0-4.0, ICA EDV 40-100*. >=70 percent but less than near occlusion >230, >=50 percent plaque, ICA/CAA PSV Ratio >4.0, ICA EDV >100*. *cm/sec Plaque estimate (diameter reduction) with horowitz-scale and color Doppler US. RSNA 2002 THIS IS AN ELECTRONICALLY VERIFIED FINAL REPORT 01/20/2024 12:48 PM - Electronically signed by ??Jhonny Brizuela D.O. AP: YEVGENIY D: ??01/20/2024 12:48 PM T: ??01/20/2024 12:48 PM Report ID: [id number] Reading Location: ??[id number] Procedure Note Jhonny Brizuela, DO - 01/20/2024 EXAM DESCRIPTION: US CAROTIDS DUPLEX BILATERAL REASON FOR STUDY: recurrent near syncope TECHNIQUE: Horowitz scale, color Doppler and spectral Doppler imaging were performed. Velocity criteria are extrapolated from diameter as defined bythe Society of Radiologists in Ultrasound Consensus Conference. All velocity measurements are in cm/sec. COMPARISON: None available. FINDINGS: Right: Atherosclerotic plaque at the carotid bifurcation and proximal cervical internal carotid artery. Distal CCA Peak Systolic Velocity: 87.4 Distal CCA End Diastolic Velocity: 14.4 Peak ICA Systolic Velocity: 76.6 ICA End Diastolic Velocity: 16.5 Peak ICA/CCA Systolic Ratio: 0.88 Right Vertebral Artery: Antegrade direction of flow. Left: Atherosclerotic plaque at the carotid bifurcation and proximalcervical internal carotid artery. Distal CCA Peak Systolic Velocity: 99.2 Distal CCA End Diastolic Velocity: 23 Peak ICA Systolic Velocity: 81.4 ICA End Diastolic Velocity: 19.2 Peak ICA/CCA Systolic Ratio: 0.82 Left Vertebral Artery: Antegrade direction of flow. IMPRESSION: Velocities correspond to a less than 50 percent diameter stenosis ofthe right ICA. Velocities correspond to a less than 50 percent diameter stenosis ofthe left ICA. Antegrade direction of flow of the bilateral vertebral arteries. REFERENCE: Consensus Panel Horowitz-Scale and Doppler US Criteria forDiagnosis of ICA Stenosis. No stenosis: ICA PSV <125*, 0 percent plaque, ICA/CCA PSV Ratio <2.0, ICAEDV <40*. <50 percent stenosis: ICA PSV <125*, <50 percent plaque, ICA/CCA PSV Ratio <2.0, ICA EDV <40*. 50-69 percent stenosis: ICA PSV 125-230*, >=50 percent plaque, ICA/CCA PSV Ratio 2.0-4.0, ICA EDV 40-100*. >=70 percent but less than near occlusion >230, >=50 percent plaque,ICA/CAA PSV Ratio >4.0, ICA EDV >100*. *cm/sec Plaque estimate (diameter reduction) with horowitz-scale and color DopplerUS. RSNA 2002 THIS IS AN ELECTRONICALLY VERIFIED FINAL REPORT 01/20/2024 12:48 PM - Electronically signed by Jhonny Brizuela D.O. AP: AP Report ID: [id number] Reading Location: [place] [address] us Joey Parson NP IMG US PROCEDURES F inal Result * TRANSTHORACIC ECHO (TTE) COMPLETE W DOPPLER/CF W CONTRAST (01/20/2024 11:17 AM CDT) Anatomical Region Laterality Modality Ultrasound 01/20/2024 10:3 8 AM CDT Narrative 01/20/2024 12:59 PM CDT [address] [address] Echocardiogram Report Patient Name: CLARITA JUAN : 1940 Study Date: 01/20/2024 10:38:07 AM Gender: M Tech: MANAGER BANQUET Location: [id number] Ref Provider: JOEY PARSON ?Height(Cm): 170 BSA: 2.05 Weight(Kg): 88.9 Quality: Definity contrast agent used to enhance endocardial border definition Order Provider: JOEY PARSON PROCEDURES: Echocardiographic Report: Transthoracic echocardiogram with complete 2D, M-Mode, color Doppler examination and contrast. INDICATIONS: Syncope. Measurements: 2D/M Mode ?Doppler Measurement ?Value ?Normal Range ? Measurement ? Value ?Normal Range EF Teich MM ?59.0 ? [ 52.0 - 72.0 ] percent ?JURGEN Vmax ?3.14 ? cm2 LVIDd MM ? 5.80 ? [ 4.20 - 5.80 ] cm ? AV Mean PG ?6 ?mmHg LVIDs MM ? 4.00 ? [ 2.50 - 4.00 ] cm ? AV Peak Emmanuel ? 1.21 ? [ 1.00 - 1.70 ] m/s LVPWd MM ? 0.90 ? [ 0.60 - 1.00 ] cm ? AV VTI ?24.66 ?cm IVSd MM ?1.00 ? [ 0.60 - 1.00 ] cm ? LVOT Diam ? 2.29 ? cm LA Dimension MM ?2.88 ? [ 3.00 - 4.00 ] cm ? LVOT Peak Emmanuel ? 0.92 ? [ 0.70 - 1.10 ] m/s AoR Diam MM ?3.25 ? [ 3.10 - 3.70 ] cm ? LVOT VTI ?18.92 ?cm ACS MM ? 1.27 ? [ 1.50 - 2.60 ] cm ? MV E Peak Emmanuel ? 0.58 ? [ 0.60 - 1.30 ] m/s MV A Peak Emmanuel ?0.92 ? [ 1.00 - 1.20 ] m/s MV Mean PG ? 2 ?mmHg MV PHT ? 42 ? [ 20 - 100 ] msec MVA ?5.30 MV Decel Time ?167 ?[ 104 - 258 ] msec PV Peak Emmanuel ?0.81 ? [ 0.40 - 0.80 ] m/s TR Peak Emmanuel ?2.41 ? [ 1.00 - 2.80 ] m/s TR Peak PG ? 23 ? mmHg RVSP ? 28.00 ?[ 10.00 - 36.00 ] mmHg E` ? 0.07 ? m/s E/E` ? 8.88 ? [ <= 10.00 ] PA Pressure ?28.00 ?[ 10.00 - 36.00 ] mmHg Measurement ?Value ?Normal Range ? Measurement ? Value ?Normal Range 2D/M Mode ?Doppler - FINDINGS: Atrial Septum: The atrial septum is not well visualized. Left Ventricle: Normal left ventricular systolic function with no focal wall motion abnormalities. Normal left ventricular size. Normal left ventricular wall thickness. Impaired diastolic relaxation Grade I. Ejection fraction is measured at 59 %. Left Atrium: The left atrium is normal in size. Right Ventricle: Normal right ventricular size. Normal right ventricular systolic function. Right Atrium: The right atrium is normal in size. Aortic Valve: Normal structure of the aortic valve. Mitral Valve: Normal structure of the mitral valve. Pulmonic Valve: Pulmonic valve not well visualized. Tricuspid Valve: Normal structure of the tricuspid valve. Right Ventricular Systolic Pressure could not be estimated due to inadequate visualization of TR jet. Pericardium: Normal pericardium with no significant pericardial effusion. Aorta: Normal aortic root. IVC: Normal size and normal respiratory collapse consistent with normal right atrial pressure (<5 mmHg). CONCLUSIONS: Normal left ventricular systolic function with no focal wall motion abnormalities. Normal left ventricular size. Normal left ventricular wall thickness. Impaired diastolic relaxation Grade I. Ejection fraction is measured at 59 %. Electronically Signed By: Raffy Oneil 2024-01-20 12:59:03 CDT Procedure Note Raffy Oneil MD - 01/20/[address] [address] Echocardiogram Report Patient Name: CLARITA JUAN : 1940 Study Date: 01/20/2024 10:38:07 AM Gender: M Tech: MANAGER BANQUET Location: [place] [address] Ref Provider: JOEY PARSON Height(Cm): 170 BSA: 2.05 Weight(Kg): 88.9 Quality: Definity contrast agent used to enhance endocardial borderdefinition Order Provider: JOEY PARSON PROCEDURES: Echocardiographic Report: Transthoracic echocardiogram with complete 2D, M-Mode, color Dopplerexamination and contrast. INDICATIONS: Syncope. Measurements: 2D/M ModeDoppler Measurement Value Normal Range MeasurementValue Normal Range EF Teich MM 59.0 [ 52.0 - 72.0 ] percent JURGEN Vmax3.14 cm2 LVIDd MM 5.80 [ 4.20 - 5.80 ] cm AV Mean PG6 mmHg LVIDs MM 4.00 [ 2.50 - 4.00 ] cm AV Peak Vel1.21 [ 1.00 - 1.70 ] m/s LVPWd MM 0.90 [ 0.60 - 1.00 ] cm AV VTI24.66 cm IVSd MM 1.00 [ 0.60 - 1.00 ] cm LVOT Diam2.29 cm LA Dimension MM 2.88 [ 3.00 - 4.00 ] cm LVOT PeakVel 0.92 [ 0.70 - 1.10 ] m/s AoR Diam MM 3.25 [ 3.10 - 3.70 ] cm LVOT VTI18.92 cm ACS MM 1.27 [ 1.50 - 2.60 ] cm MV E PeakVel 0.58 [ 0.60 - 1.30 ] m/s MV A Peak Emmanuel 0.92 [ 1.00 - 1.20 ] m/s MV Mean PG 2 mmHg MV PHT 42 [ 20 - 100 ] msec MVA 5.30 MV Decel Time 167 [ 104 - 258 ] msec PV Peak Emmanuel 0.81 [ 0.40 - 0.80 ] m/s TR Peak Emmanuel 2.41 [ 1.00 - 2.80 ] m/s TR Peak PG 23 mmHg RVSP 28.00 [ 10.00 - 36.00 ] mmHg E` 0.07 m/s E/E` 8.88 [ <= 10.00 ] PA Pressure 28.00 [ 10.00 - 36.00 ] mmHg Measurement Value Normal Range MeasurementValue Normal Range 2D/M ModeDoppler - FINDINGS: Atrial Septum: The atrial septum is not well visualized. Left Ventricle: Normal left ventricular systolic function with no focal wall motionabnormalities. Normal left ventricular size. Normal left ventricular wall thickness. Impaireddiastolic relaxation Grade I. Ejection fraction is measured at 59 %. Left Atrium: The left atrium is normal in size. Right Ventricle: Normal right ventricular size. Normal right ventricular systolicfunction. Right Atrium: The right atrium is normal in size. Aortic Valve: Normal structure of the aortic valve. Mitral Valve: Normal structure of the mitral valve. Pulmonic Valve: Pulmonic valve not well visualized. Tricuspid Valve: Normal structure of the tricuspid valve. Right Ventricular SystolicPressure could not be estimated due to inadequate visualization of TR jet. Pericardium: Normal pericardium with no significant pericardial effusion. Aorta: Normal aortic root. IVC: Normal size and normal respiratory collapse consistent with normal rightatrial pressure (<5 mmHg). CONCLUSIONS: Normal left ventricular systolic function with no focal wall motionabnormalities. Normal left ventricular size. Normal left ventricular wall thickness. Impaireddiastolic relaxation Grade I. Ejection fraction is measured at 59 %. Electronically Signed By: Raffy Oneil 2024-01-20 12:59:03 CDT Joey Parson NP CV ECHO PROCEDURES Final Result * eGFR (01/20/2024 8:24 AM CDT) eGFR 45 mL/min/1. 73 m2 Comment: Interpretive Data Reference Interval Normal ?>/= 90 mL/min/1.73m2 Mildly decreased* ? 60 - 89 mL/min/1.73m2 Mildly to moderately decreased ?45 - 59 mL/min/1.73m2 Moderately to severely decreased ??30 - 44 mL/min/1.73m2 Severely decreased ?15 - 29 mL/min/1.73m2 Kidney Failure ?< 15 ??mL/min/1.73m2 *Relative to young adult level Estimated glomerular filtration rate is determined by the 2020 CKD-EPI equation recommended by the National Kidney Foundation (A Unifying Approach to GFR Estimation: Recommendations of the NKF-ASK Task Force on Reassessing the Inclusion of Race in Diagnosing Kidney Disease, JASN 2020). The CKD-EPI equation should not be used for patients with unstable renal function and has not been validated in children and those over 70. Current interpretive data was last reviewed 2021. Blood 01/20/2024 8:24 AM CDT 01/20/2024 8:27 AM CDT Joey Parson NP LAB BLOOD ORDERABLE S Final Result [facility] ([place]) 1 [employer] [facility] Department of Laboratories [place], [place] [id number] * (ABNORMAL) CBC without differential (01/20/2024 8:24 AM CDT) WBC 11.8(H) 3.8 - 9.9 K/cumm Hgb 13.4 13.0 - 17.5 g/dL [facility] ([place]) Hct 40.3 38.9 - 50.3 % [facility] ([place]) Plt 305 150 - 400 K/cumm [facility] ([place]) MPV 9.1 9.1 - 12.3 fL [facility] ([place]) RBC 4.21(L) 4.30 - 5.80 M/cumm [facility] ([place]) MCV 95.7 81.3 - 96.4 fL [facility] ([place]) MCH 31.8 27.1 - 33.3 pg [facility] ([place]) MCHC 33.3 32.3 - 35.7 g/dL [facility] ([place]) RDW CV 13.4 11.1 - 14.9 % [facility] ([place]) RDW SD 47.4 35.7 - 48.1 fL [facility] ([place]) NRBC abs 0.00 0.00 - 0.01 K/cumm [facility] ([place]) Blood 01/20/2024 8:24 AM CDT 01/20/2024 8:27 AM CDT us Joey Parson MANAGER BANQUET LAB BLOOD ORDERABLE S Final Result [facility] 1 [facility] Department [place] [address] * (ABNORMAL) Basic metabolic panel (01/20/2024 8:24 AM CDT) Sodium 137 135 - 145 mmol/L Potassium, pl 3.8 3.3 - 4.9 mmol/L [facility] ([place]) Chloride 99 97 - 110 mmol/L [facility] ([place]) CO2 24 22 - 32 mmol/L [facility] ([place]) Anion gap 15 2 - 15 mmol/L [facility] ([place]) BUN 28(H) 6 - 25 mg/dL [facility] ([place]) Creatinine 1.54(H) 0.80 - 1.30 mg/dL [facility] ([place]) Glucose 187 70 - 199 mg/dL [facility] ([place]) Comment: Interpretive Data Fasting glucose >/= 126 mg/dl is diagnostic for diabetes. ?? Fasting is defined as no caloric intake for at least 8 hours. Fasting glucose between 100 mg/dl to 125 mg/dl is diagnostic of prediabetes. In a patient with classic symptoms of hyperglycemia or hyperglycemic crisis, a random glucose >/= 200 mg/dl is diagnostic for diabetes. In the absence of unequivocal hyperglycemia, results should be confirmed by repeat testing. The classification and Diagnosis of Diabetes Diabetes Care 2021; 46: S19-S40. Current interpretive data was last revised 2022. Calcium 9.9 8.5 - 10.3 mg/dL [facility] ([place]) Blood 01/20/2024 8:24 AM CDT 01/20/2024 8:27 AM CDT Joey Parson MANAGER [facility]ET LAB BLOOD ORDERABLE S Final Result [facility] ([place]) 1 [facility] [place] [address] * Magnesium (01/20/2024 8:24 AM CDT) Magnesium 1.8 1.4 - 2.5 mg/dL Blood 01/20/2024 8:24 AM CDT 01/20/2024 8:27 AM CDT Joey Erica Parson MANAGER [facility] LAB BLOOD ORDERABLE S Final Result [facility] ([place]) 1 [facility] [place] [address] * Phosphorus (01/20/2024 8:24 AM CDT) Phosphorus, pl 3.0 2.3 - 4.5 mg/dL Blood 01/20/2024 8:24 AM CDT 01/20/2024 8:27 AM CDT Joey Parson MANAGER BAN[facility]ET LAB BLOOD ORDERABLE S Final Result [facility] ([place]) 1 [facility] [place] [address] * Hepatic function panel (01/20/2024 8:24 AM CDT) Bilirubin, total 0.3 0.1 - 1.2 mg/dL Bilirubin, direct <0.2 0.1 - 0.3 mg/dL [facility] ([place]) Protein, pl 7.3 6.5 - 8.5 g/dL [facility] ([place]) Albumin 3.7 3.5 - 5.0 g/dL [facility] ([place]) Alk phos 109 40 - 130 Units/L [facility] ([place]) ALT 14 7 - 55 Units/L [facility] ([place]) AST 14 10 - 50 Units/L [facility] ([place] Blood 01/20/2024 8:24 AM CDT 01/20/2024 8:27 AM CDT Joey Parson MANAGER [facility] LAB BLOOD ORDERABLE S Final Result Performing Organization Address City/[facility]/ZIP Co de Phone Number NNEKA PICHARDO ([place]) [address] [place] [address] [place] [address] * (ABNORMAL) Troponin T high-sensitivity 4-hour (01/20/2024 5:17 AM CDT) Trop T hs 27(H) <=22 ng/L Comment: Interpretive Data For further hscTnT resources including the diagnostic algorithm and an aid in interpretation, copy and paste this link: https://nrl.testcatalog.org/show/hsTrop Current Interpretive Data last revised 2020. Trop T hs delta See Comment ng/L [facility] ([place]) Comment:Inappropriate collec tion time to report a delta. Trop T hs pct delta See Comment % [facility] ([place]) Comment:Inappropriate collec tion time to report a delta. Trop T hs interp See Comment C [facility] ([place]) Comment:Inappropriate collec tion time to report a delta. Blood 01/20/2024 5:17 AM CDT 01/20/2024 5:51 AM CDT She RE[facility] LAB BLOOD ORDERABLES Marah l Result Performing Organization Address [facility] Co de Phone Number NNEKA PICHARDO ([place]) [address] [place] [address] * Troponin T high-sensitivity 2-hour (01/20/2024 12:02 AM CDT) Trop T hs 19 <=22 ng/L Comment: Interpretive Data For further hscTnT resources including the diagnostic algorithm and an aid in interpretation, copy and paste this link: https://nrl.testcatalog.org/show/hsTrop Current Interpretive Data last revised 2020. Trop T hs delta -2 ng/L [facility] ([place]) Trop T hs interp Insignificant [facility] ([place]) Blood 01/20/2024 12:0 2 AM CDT 01/20/2024 12:08 AM CDT She RE[facility] LAB BLOOD ORDERABLES Marah l Result Performing Organization Address [facility] Co de Phone Number NNEKA PICHARDO ([place]) [address] [facility] [place] [address] * CT Head WO Contrast (01/19/2024 9:49 PM CDT) Anatomical Region Laterality Modality Head and Neck N/A Computed Tomogra phy 01/19/2024 10:0 2 PM CDT Narrative 01/19/2024 10:06 PM CDT EXAM DESCRIPTION: CT HEAD WO CONTRAST REASON FOR STUDY: Dizziness, persistent/recurrent, cardiac or vascular cause suspected ?? Pt to ED for feeling like he was going to pass out multiple times today. ?? No hx of fx ??No surgery or stroke ??No hx of cancer ?? TECHNIQUE: Axial images acquired through the brain without intravenous contrast. ??Images stored on PACS. ?? Automated exposure control was used as a dose optimization technique for this examination. COMPARISON: None. FINDINGS: BRAIN: ?? Ventricles, cisterns and sulci are symmetric and mildly prominent, commensurate with age. ?Horowitz-white matter differentiation appears preserved. ?? No intracranial hemorrhage is evident. EXTRA-AXIAL SPACES: ?? No fluid collections. No mass effect. CALVARIUM: ?? Appears intact. SINUSES/MASTOIDS: ?? No fluid or mucosal thickening. ORBITS: ?? Status post lens extractions. OTHER: ?? No other significant abnormality. IMPRESSION: No acute intracranial findings. THIS IS AN ELECTRONICALLY VERIFIED FINAL REPORT 01/19/2024 10:06 PM - Electronically signed by ??Hector Ayala M.D., D.O. Hector Ayala M.D., D.O. MW: [email or web address] D: ??01/19/2024 10:06 PM T: ??01/19/2024 10:06 PM Report ID: [id number] Reading Location: ??[id number] Procedure Note Hector Ayala MD - 01/19/2024 EXAM DESCRIPTION: CT HEAD WO CONTRAST REASON FOR STUDY: Dizziness, persistent/recurrent, cardiac or vascularcause suspected Pt to ED for feeling like he was going to pass out multiple times today. No hx of fx No surgery or stroke No hx of cancer TECHNIQUE: Axial images acquired through the brain without intravenous contrast. Images stored on PACS. Automated exposure control was used asa dose optimization technique for this examination. COMPARISON: None. FINDINGS: BRAIN: Ventricles, cisterns and sulci are symmetric and mildlyprominent, commensurate with age. Horowitz-white matter differentiation appearspreserved. No intracranial hemorrhage is evident. EXTRA-AXIAL SPACES: No fluid collections. No mass effect. CALVARIUM: Appears intact. SINUSES/MASTOIDS: No fluid or mucosal thickening. ORBITS: Status post lens extractions. OTHER: No other significant abnormality. IMPRESSION: No acute intracranial findings. THIS IS AN ELECTRONICALLY VERIFIED FINAL REPORT 01/19/2024 10:06 PM - Electronically signed by Hector Ayala M.D., Lane.O. Hector Ayala M.D., D.O. MW: JÚNIOR Report ID: [id number] Reading Location: [place] [address] PROCEDURES Final R esult * Influenza A/B, RSV, and COVID-19 PCR Nasopharyngeal (01/19/2024 9:35 PM CDT) [facility] COVID-19 RNA Negative Negative Influenza A RNA Negative Negative [facility] ([place]) Influenza B RNA Negative Negative [facility] ([place]) RSV RNA Negative Negative [facility] ([place]) Comment: Interpretive data: Testing performed by [facility]. This test is performed using the Brisk[employer] Xpert Xpress CoV-2/Flu/RSV plus assay. This is a multiplex, real- time reverse transcriptase PCR assay intended for the qualitative detection of nucleic acid from SARS-CoV-2, influenza A, influenza B, and respiratory syncytial virus. This assay has been cleared by the [place] Food and Drug administration. The performance characteristics have been verified by the [facility]. ?? Results must be considered in the clinical context, and a negative result does not rule out infection. Interpretive Data last revised 2023 Nasopharyngeal 01/19/2024 9: 35 PM CDT 01/19/2024 9:37 PM CDT Narrative [facility] - 01/19/2024 10:15 PM CDT Is the Patient experiencing symptoms consistent with COVID?->Yes She REY LAB MICROBIOLOGY - GENERA L ORDERABLES Final Result NNEKA [facility] ([place]) [address] [facility] [place] [address] * (ABNORMAL) D-dimer, quantitative (01/19/2024 9:35 PM CDT) [facility] D-Dimer 580(H) <=499 ng/mL FEU Comment: Interpretive data FDA approved the D-dimer, in conjunction with a low or moderate pretest probability score, to exclude venous thromboembolic events (VTE) (PE and DVT) in outpatients when the D-dimer result is < 500 ng/ml FEU. ?? Evidence supports using an age-adjusted D-dimer cut-off for outpatients older than 50 (age x 10) to improve specificity without sacrificing sensitivity. Example: age 68, VTE cut-off 680 ng/ml FEU. References; Abdirizak HT et al. Brit Med J. 2013;346:f2492. Rogerio et al. Annals Int Med. 2015;163:701-11. Current interpretive data was last revised on 2019. Blood 01/19/2024 9:35 PM CDT 01/19/2024 9:37 PM CDT us She REY LAB BLOOD ORDERABLES Marah christianson Result [facility] ([place]) [address] [facility] [place] [address] * Pro B-type natriuretic peptide (01/19/2024 9:35 PM CDT) Pathologist [facility] NT-proBNP 439 <=450 pg/mL Comment: Interpretive Comments: A. Dyspnea in Acute Care Setting All Ages: ?< 300 pg/ml, acute heart failure unlikely. < 50 yrs: ?300 - 450 pg/ml, further investigation warranted. ? > 450 pg/ml, acute heart failure likely. 50 - 74 yrs: ? 300 - 900 pg/ml, further investigation warranted. ? > 900 pg/ml, acute heart failure likely . > or = 75 yrs: ? 450 - 1800 pg/ml, further investigation warranted. ? > 1800 pg/ml, acute heart failure likely. B. Non-acute Setting < 75 yrs ? < 125 pg/ml, rules out heart failure. ? > or = 125 pg/ml, further investigation warranted. > or = 75 yrs ?< 450 pg/ml, rules out heart failure. ? > or = 450 pg/ml, further investigation warranted. - Knowledge of each individual patient's NT-proBNP range may be more useful than using similar cut-points for every patient. Please note that marked elevations in NT-proBNP levels may be observed in state other than Left Ventricular Congestive Failure, including: acute coronary syndromes, right heart strain/failure (including pulmonary embolism and cor pulmonale), critical illness, renal failure, as well as advanced age. - References: 1. Amina VASQUEZ et.al. Eur Heart J. 2006:27:330-337. 2. Ashlee RW, Sophia SINGLETON. J. AM Luis Alberto Cardiol: Cardiovasc Imag. 2009;2: 216- 225. Interpretive Data Last Revised Date: 2018. Blood 01/19/2024 9:35 PM CDT 01/19/2024 9:38 PM CDT She RE[facility] LAB BLOOD ORDERABLES Marah christianson Result Performing Organization Address City/State/[facility] Co de Phone Number [facility] ([place]) [address] [facility] [place] [address] * (ABNORMAL) Differential, auto (01/19/2024 9:25 PM CDT) Neutrophil abs 7.0(H) 1.5 - 6.5 K/cumm Imm gran abs 0.0 0.0 - 0.1 K/cumm [facility] ([place]) Lymphocyte abs 2.2 0.8 - 3.3 K/cumm [facility] ([place]) Monocyte abs 0.6 0.2 - 0.8 K/cumm [facility] ([place]) Eosinophil abs 0.4 0.0 - 0.5 K/cumm [facility] ([place]) Basophil abs 0.1 0.0 - 0.1 K/cumm [facility] ([place]) Neutrophil pct 68.1 % [facility] ([place]) Comment: Interpretive Data Percent cell count reference ranges are not reported, since discordance with absolute values may lead to misinterpretation of CBC data. Current Interpretive Data was last revised on 2018. Imm gran pct 0.2 % [facility] ([place]) Comment: Interpretive Data Percent cell count reference ranges are not reported, since discordance with absolute values may lead to misinterpretation of CBC data. Current Interpretive Data was last revised on 2018. Lymphocyte pct 21.7 % [facility] ([place]) Comment: Interpretive Data Percent cell count reference ranges are not reported, since discordance with absolute values may lead to misinterpretation of CBC data. Current Interpretive Data was last revised on 2018. Monocyte pct 5.9 % [facility] ([place]) Comment: Interpretive Data Percent cell count reference ranges are not reported, since discordance with absolute values may lead to misinterpretation of CBC data. Current Interpretive Data was last revised on 2018. Eosinophil pct 3.4 % [facility] ([place]) Comment: Interpretive Data Percent cell count reference ranges are not reported, since discordance with absolute values may lead to misinterpretation of CBC data. Current Interpretive Data was last revised on 2018. Basophil pct 0.7 % [facility] ([place]) Comment: Interpretive Data Percent cell count reference ranges are not reported, since discordance with absolute values may lead to misinterpretation of CBC data. Current Interpretive Data was last revised on 2018. Blood 01/19/2024 9:25 PM CDT 01/19/2024 9:27 PM CDT us Tosin Harrington MD LAB BLOOD ORDERABLES Marah christianson Result NNEKA MARINO ([place]) [address] [facility] [place] [address] * Troponin T high-sensitivity series (baseline, 2hr, 4hr, 6hr) (01/19/2024 9:25 PM CDT) Pathologist [facility] Trop T hs 21 <=22 ng/L Comment: Interpretive Data For further hscTnT resources including the diagnostic algorithm and an aid in interpretation, copy and paste this link: https://nrl.testcatalog.org/show/hsTrop Current Interpretive Data last revised 2020. Blood 01/19/2024 9:25 PM CDT 01/19/2024 9:27 PM CDT us She REY LAB BLOOD ORDERABLES Marah christianson Result [facility] ([place]) [address] [facility] [place] [address] * (ABNORMAL) CBC with auto differential (01/19/2024 9:25 PM CDT) Pathologist [facility] WBC 10.3(H) 3.8 - 9.9 K/cumm Hgb 13.6 13.0 - 17.5 g/dL [facility] ([place]) Hct 41.1 38.9 - 50.3 % [facility] ([place]) Plt 306 150 - 400 K/cumm [facility] ([place]) MPV 9.0(L) 9.1 - 12.3 fL [facility] ([place]) RBC 4.29(L) 4.30 - 5.80 M/cumm [facility] ([place]) MCV 95.8 81.3 - 96.4 fL [facility] ([place]) MCH 31.7 27.1 - 33.3 pg [facility] ([place]) MCHC 33.1 32.3 - 35.7 g/dL [facility] ([place]) RDW CV 13.3 11.1 - 14.9 % [facility] ([place]) RDW SD 47.1 35.7 - 48.1 fL [facility] ([place]) NRBC abs 0.00 0.00 - 0.01 K/cumm [facility] ([place]) Blood 01/19/2024 9:25 PM CDT 01/19/2024 9:27 PM CDT Tosin Harrington MD LAB BLOOD ORDERABLES Marah christianson Result NNEKA PICHARDO ([place]) [address] [facility] [place] [address] * XR Chest 1 Vw Portable (01/19/2024 9:14 PM CDT) Anatomical Region Laterality Modality Body, Chest N/A Computed Radiogr aphy 01/19/2024 9:41 PM CDT Narrative 01/19/2024 9:50 PM CDT EXAM DESCRIPTION: XR CHEST 1 VIEW REASON FOR STUDY: dizziness ?? feeling like he was going to pass out multiple times today. ? TECHNIQUE: 1 ??radiographic view(s) of the chest. COMPARISON: 05/18/2023 01/10/2023 FINDINGS: Streaky opacities in the right base favors atelectasis. ??No new focal consolidation, pneumothorax, pulmonary edema, or pleural effusion. ?? Mediastinal contours are stable. IMPRESSION: Streaky opacities in the right base favors atelectasis. THIS IS AN ELECTRONICALLY VERIFIED FINAL REPORT 01/19/2024 9:50 PM - Electronically signed by ??Thea Ramirez M.D. QX: QX D: ??01/19/2024 9:50 PM T: ??01/19/2024 9:50 PM Report ID: [id number] Reading Location: ??[id number] Procedure Note Thea Ramirez MD - 01/19/2024 EXAM DESCRIPTION: XR CHEST 1 VIEW REASON FOR STUDY: dizziness feeling like he was going to pass out multiple times today. TECHNIQUE: 1 radiographic view(s) of the chest. COMPARISON: 05/18/2023 01/10/2023 FINDINGS: Streaky opacities in the right base favors atelectasis. No new focal consolidation, pneumothorax, pulmonary edema, or pleural effusion. Mediastinal contours are stable. IMPRESSION: Streaky opacities in the right base favors atelectasis. THIS IS AN ELECTRONICALLY VERIFIED FINAL REPORT 01/19/2024 9:50 PM - Electronically signed by Thea Ramirez M.D. QX: QX Report ID: [id number] Reading Location: [place] [address] us [place] IMG XR PROCEDURES Final R esult * Urinalysis reflex to microscopic and culture Urine (01/19/2024 2:53 PM CDT) Color, ur Yellow Yellow Clarity, ur Clear Clear [facility] ([place]) Specific gravity, ur 1.014 1.003 - 1.030 [facility] ([place]) pH, urine 6.5 [facility] ([place]) Comment: Interpretive Data ? Urine pH is affected by diet, medications, systemic acid-base disturbances, and renal tubular function. ??pH may affect urinary stone formation. ??For example, urine pH below 6.0 may help reduce the tendency for calcium phosphate stones and pH greater than 6.0 may reduce the tendency for uric acid stone formation. Source: [place] [employer] Current Interpretive Data was last revised on 2017 Protein, ur ql Trace Negative [facility] ([place]) Glucose, ur ql Negative Negative [facility] ([place]) Ketones, ur Negative Negative [facility] ([place]) Bilirubin, ur Negative Negative [facility] ([place]) Blood, ur Negative Negative [facility] ([place]) Urobilinogen, ur <2.0 <2.0 mg/dL [facility] ([place]) Nitrite, ur Negative Negative [facility] ([place]) Leukocyte esterase, ur Negative Negative [facility] ([place]) UA reflex comment Reflex conditions for microscopic UA and culture not met. [facility] ([place]) Urine 01/19/2024 2:53 PM CDT 01/19/2024 2:59 PM CDT Tosin Harrington MD LAB MICROBIOLOGY - GENERA L ORDERABLES Final Result [facility] ([place]) 1 [facility] [place] [address] * eGFR (01/19/2024 2:03 PM CDT) Pathologist [facility] eGFR 49 mL/min/1. 73 m2 Comment: Interpretive Data Reference Interval Normal ?>/= 90 mL/min/1.73m2 Mildly decreased* ? 60 - 89 mL/min/1.73m2 Mildly to moderately decreased ?45 - 59 mL/min/1.73m2 Moderately to severely decreased ??30 - 44 mL/min/1.73m2 Severely decreased ?15 - 29 mL/min/1.73m2 Kidney Failure ?< 15 ??mL/min/1.73m2 *Relative to young adult level Estimated glomerular filtration rate is determined by the 2020 CKD-EPI equation recommended by the National Kidney Foundation (A Unifying Approach to GFR Estimation: Recommendations of the NKF-ASK Task Force on Reassessing the Inclusion of Race in Diagnosing Kidney Disease, JASN 2020). The CKD-EPI equation should not be used for patients with unstable renal function and has not been validated in children and those over 70. Current interpretive data was last reviewed 2021. Blood 01/19/2024 2:03 PM CDT 01/19/2024 2:05 PM CDT us Tosin Harrington MD LAB BLOOD ORDERABLES Marah l Result NNEKA PICHARDO ([place]) [address] [facility] [place] [address] * (ABNORMAL) Comprehensive metabolic panel (01/19/2024 2:03 PM CDT) [facility] Sodium 136 135 - 145 mmol/L Potassium, pl 4.9 3.3 - 4.9 mmol/L [facility] ([place]) Comment:Moderately Hemolyzed Specimen. Results may be affected. Chloride 99 97 - 110 mmol/L [facility] ([place]) CO2 25 22 - 32 mmol/L [facility] ([place]) Anion gap 12 2 - 15 mmol/L [facility] ([place]) BUN 27(H) 6 - 25 mg/dL [facility] ([place]) Creatinine 1.44(H) 0.80 - 1.30 mg/dL [facility] ([place]) Glucose 109 70 - 199 mg/dL [facility] ([place]) Comment: Interpretive Data Fasting glucose >/= 126 mg/dl is diagnostic for diabetes. ?? Fasting is defined as no caloric intake for at least 8 hours. Fasting glucose between 100 mg/dl to 125 mg/dl is diagnostic of prediabetes. In a patient with classic symptoms of hyperglycemia or hyperglycemic crisis, a random glucose >/= 200 mg/dl is diagnostic for diabetes. In the absence of unequivocal hyperglycemia, results should be confirmed by repeat testing. The classification and Diagnosis of Diabetes Diabetes Care 2021; 46: S19-S40. Current interpretive data was last revised 2022. Calcium 9.9 8.5 - 10.3 mg/dL [facility] Bilirubin, total 0.4 0.1 - 1.2 mg/dL [facility] ([place]) Protein, pl 7.3 6.5 - 8.5 g/dL [facility] ([place]) Albumin 3.5 3.5 - 5.0 g/dL [facility] ([place]) Alk phos 108 40 - 130 Units/L [facility] ([place]) ALT 15 7 - 55 Units/L [facility] ([place]) Comment: Hemolysis present. ??Results may be affected. Moderately Hemolyzed Specimen AST 27 10 - 50 Units/L [facility] ([place]) Comment: Hemolysis present. ??Results may be affected. Moderately Hemolyzed Specimen Blood 01/19/2024 2:03 PM CDT 01/19/2024 2:05 PM CDT Tosin Harrington MD LAB BLOOD ORDERABLES Marah l Result Performing Organization Address City/State/[facility] Co de Phone Number NNEKA PICHARDO ([place]) [address] [facility] [place] [address] * ECG 12 lead (01/19/2024 1:50 PM CDT) 01/19/2024 1:50 PM CDT Narrative [facility] - 01/19/2024 2:22 PM CDT Vent Rate: 74 bpm RR Interval: 810 msec UT Interval: 141 msec QRS Duration: 105 msec QT Interval: 359 msec QTC Interval: 386 msec P-R-T [place]: 10 - -5 - 77 degrees IMPRESSION: SINUS RHYTHM WITH OCCASIONAL VENTRICULAR PREMATURE COMPLEXES NONSPECIFIC T-WAVE ABNORMALITY BORDERLINE ECG Compared to prior EKG, heart rate has decreased Sinus rhythm replaced atrial fibrillation PVCs are new Electronically Signed By: Reji Maloney MD us Tosin Harrington MD ECG ORDERABLES Final Res ult Performing Organization Address [facility] Co de Phone Number [facility] [employer] [facility] documented in this encounter Visit Diagnoses Diagnosis Near syncope- Primary Near syncope COPD exacerbation (HCC) Obstructive chronic bronchitis with exacerbation Near syncope documented in this encounter Admitting Diagnoses Diagnosis Near syncope documented in this encounter Administered Medications Inactive Administered Medications - up to 3 most recent administrations Medication Order MAR Action Action Date Dose Rate Site albuterol 2.5 mg /3 mL (0.083 %) nebulizer solution 2.5 mg 2.5 mg, nebulization, Every 6 hours (geriatric 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 therapist), First dose (after last modification) on Thu01/20/24 at 0300 Given 01/20/2024 1:23 AM CDT 2.5 mg albuterol 2.5 mg /3 mL (0.083 %) nebulizer solution 2.5 mg 2.5 mg, nebulization, Every 4 hours PRN (geriatric physical therapist), wheezing, shortness of breath, Starting on Thu01/20/24 at 0300 albuterol 2.5 mg/0.5 mL nebulizer solution 10 mg 10 mg, nebulization, Once (geriatric physical therapist), On Tu01/19/24 at 2231, For 1 dose Given 01/19/2024 10:45 PM CDT 10 mg apixaban (ELIQUIS) tablet 2.5 mg 2.5 mg, oral, Every 12 hours scheduled, First dose (after last modification) on Thu01/20/24 at 2100, Decreased apixaban dose from 5 mg PO BID to Apixaban 2.5 mg po BID is appropriate for age> 80, wt>60kg, Scr > 1.5 and indication of Afib. 83 y.o. Wt Readings from Last 1 Encounters: 01/20/24 : 87.6 kg (193 lb 3.2 oz) , Indications: atrial fibrillationIndications:atrial fibrillation Given 01/22/2024 9:08 AM CDT 2.5 mg Given 01/21/2024 8:16 PM CDT 2.5 mg Given 01/21/2024 8:19 AM CDT 2.5 mg apixaban (ELIQUIS) tablet 5 mg 5 mg, oral, Every 12 hours scheduled, First dose on Thu01/20/24 at 0900, Indications: atrial fibrillationIndications:atrial fibrillation Given 01/20/2024 8:27 AM CDT 5 mg azithromycin (ZITHROMAX) tablet 500 mg 500 mg, oral, Daily, First dose on Thu01/20/24 at 0230, For 3 days, Indications: Acutely Deteriorating COPDIndications:Acutely Deteriorating COPD Given 01/21/2024 8:19 AM CDT 500 mg Given 01/20/2024 8:27 AM CDT 500 mg Given 01/20/2024 4:03 AM CDT 500 mg bisacodyl EC (DULCOLAX EC) tablet 10 mg 10 mg, oral, Daily PRN, constipation, If no results 24 hours after milk of magnesia, Starting on Thu01/20/24 at 0131, Do not crush, chew, cut, dissolve, open or otherwise manipulate tablet/capsule. dexAMETHasone (DECADRON) injection solution 10 mg 10 mg, intravenous, Administer over 2 Minutes, Once, On Thu01/19/24 at 2231, For 1 dose Given 01/19/2024 10:46 PM CDT 10 mg dextromethorphan-guaiFENesin (ROBITUSSIN-DM) 2-20 mg/mL syrup 10 mL 10 mL, oral, Every 4 hours PRN, cough, Starting on Thu01/20/24 at 0153, Indications: CoughIndications:Cough Given 01/22/2024 12:56 AM CDT 10 mL guaiFENesin ER (MUCINEX) extended release tablet 600 mg 600 mg, oral, 2 times daily, First dose on Thu01/21/24 at 1200, Do not crush, chew, cut, dissolve, open or otherwise manipulate tablet/capsule. Given 01/22/2024 9:08 AM CDT 600 mg Given 01/21/2024 8:16 PM CDT 600 mg Given 01/21/2024 12:01 PM CDT 600 mg ipratropium-albuteroL (DUO-NEB) 0.5-2.5 mg/3 mL nebulizer solution 3 mL 3 mL, nebulization, Every 6 hours (geriatric physical therapist), First dose on Thu01/20/24 at 0300, Indications: COPD ExacerbationIndications:COPD Exacerbation Given 01/22/2024 7: 48 AM CDT 3 mL Given 01/21/2024 7:28 PM CDT 3 mL Given 01/21/2024 4:03 PM CDT 3 mL irbesartan (AVAPRO) tablet 300 mg 300 mg, oral, Daily, First dose on Thu01/20/24 at 0900 Given 01/22/2024 9:08 AM CDT 300 mg Given 01/21/2024 8:19 AM CDT 300 mg Given 01/20/2024 8:27 AM CDT 300 mg magnesium hydroxide (MILK OF MAGNESIA) 80 mg/mL (33.3 mg/mL as elemental magnesium) oral suspension 30 mL 30 mL, oral, Daily PRN, constipation, Starting on Thu01/20/24 at 0131 Given 01/21/2024 12:21 AM CDT 30 mL metoprolol tartrate (LOPRESSOR) immediate release tablet 50 mg 50 mg, oral, 2 times daily, First dose (after last modification) on Thu01/20/24 at 0900 Given 01/22/2024 9:08 AM CDT 50 mg Given 01/21/2024 8:16 PM CDT 50 mg Given 01/21/2024 8:18 AM CDT 50 mg mineral oil (FLEET MINERAL OIL) enema 133 mL 133 mL (1 enema), rectal, Daily PRN, constipation, if no results 24 hours after bisacodyl, Starting on Thu01/20/24 at 0131, Indications: constipationIndications:constipation montelukast (SINGULAIR) tablet 10 mg 10 mg, oral, Nightly, First dose on Thu01/20/24 at 2100 Given 01/21/2024 8:16 PM CDT 10 mg Given 01/20/2024 8:50 PM CDT 10 mg ondansetron (ZOFRAN) injection 4 mg 4 mg, intravenous, Administer over 2 Minutes, Every 6 hours PRN, nausea, vomiting, if not tolerating PO, Starting on Thu01/19/24 at 2255, Indications: Nausea and VomitingIndications:Nausea and Vomiting ondansetron ODT (ZOFRAN-ODT) disintegrating tablet 4 mg 4 mg, oral, Every 6 hours PRN, nausea, vomiting, Starting on Thu01/19/24 at 2255, Indications: Nausea and VomitingIndications:Nausea and Vomiting perflutren protein-a (OPTISON) 3 mL in sodium chloride 0.9% 8 mL syringe 1-8 mL, intravenous, Once in imaging, contrast, Starting on Thu01/20/24 at 1135, For 1 dose, Intra-Procedure (CV) Contrast Given 01/20/2024 11:36 AM CDT 4 mL predniSONE (DELTASONE) tablet 40 mg 40 mg, oral, Daily, First dose on Thu01/20/24 at 0900, Indications: Acutely Deteriorating COPDIndications:Acutely Deteriorating COPD Given 01/22/2024 9:08 AM CDT 40 mg Given 01/21/2024 8:18 AM CDT 40 mg Given 01/20/2024 8:27 AM CDT 40 mg rosuvastatin (CRESTOR) tablet 5 mg 5 mg, oral, Nightly, First dose on Thu01/20/24 at 2100 Given 01/21/2024 8:17 PM CDT 5 mg Given 01/20/2024 8:50 PM CDT 5 mg sodium chloride 0.9% bolus 1,000 mL 1,000 mL, intravenous, at 500 mL/hr, Administer over 2 Hours, Once, On Thu01/21/24 at 0845, For 1 dose New Bag 01/21/2024 8:18 AM CDT 1,000 mL 500 mL/hr sodium chloride 0.9% flush 0.5-20 mL 0.5-20 mL, intra-catheter, Every 8 hours, First dose on Thu01/20/24 at 0600, Flush volume based on line type and size. Given 01/22/2024 5:19 AM CDT 10 mL Given 01/21/2024 8:20 PM CDT 10 mL Given 01/21/2024 5:06 PM CDT 10 mL sodium chloride 0.9% flush 0.5-20 mL 0.5-20 mL, intra-catheter, As needed, line care, Starting on Thu01/20/24 at 0131, Flush volume based on line type and size. Flush before and after each use. documented in this encounter Discontinued Medications Medication Sig Discontinue Reason Start Date End Da te aspirin 81 mg enteric coated tablet Take 1 tablet (81 mg total) by mouth daily Therapy completed 01/20/2024 fluticasone propionate (FLONASE) 50 mcg/actuation nasal spray Administer 50 sprays into each nostril 2 (two) times a day as needed Therapy completed 02/05/2022 01/20/2024 meclizine (ANTIVERT) 12.5 mg tablet Take 1 tablet (12.5 mg total) by mouth 3 (three) times a day as needed for dizziness Therapy completed 01/18/2022 01/20/2024 traMADoL (ULTRAM) 50 mg tablet Take 0.5 tablets (25 mg total) by mouth every 6 (six) hours as needed for pain Therapy completed 01/24/2022 01/20/2024 tamsulosin (FLOMAX) 0.4 mg capsule,extended release 24hr take 1 capsule by oral route every day 1/2 hour following the same meal each day Therapy completed 08/06/2016 01/20/2024 ondansetron (ZOFRAN) 4 mg tablet Take 1 tablet (4 mg total) by mouth every 6 (six) hours Therapy completed 01/18/2022 01/20/2024 metoprolol tartrate (LOPRESSOR) 25 mg immediate release tablet Take 1 tablet (25 mg total) by mouth 2 (two) times a day Stop Taking at Discharge 01/15/2023 01/22/2024 amLODIPine (NORVASC) 5 mg tablet Stop Taking at Discharge 06/08/2023 01/22/2024 metoprolol tartrate (LOPRESSOR) 25 mg immediate release tablet Take 1 tablet (25 mg total) by mouth 2 (two) times a day Stop Taking at Discharge 01/22/2024 documented as of this encounter Historical Medications * This list may reflect changes made after this encounter. metoprolol tartrate (LOPRESSOR) 25 mg immediate release tablet Take 1 tablet (25 mg total) by mouth 2 (two) times a day 01/22/2024 added in this encounter Active and Recently Administered Medications Times are shown in CDT. Scheduled Medication Order 01/20/2024 01/21/2024 01/22/2024 albuterol 2.5 mg /3 mL (0.083 %) nebulizer solution 2.5 mg (CANCELED) 2.5 mg, nebulization, Every 6 hours (geriatric physical therapist), First dose (after last modification) on Thu01/20/24 at 0300 0123 (Given - Provider: Prema Duran, RIVER RAFTING GUIDE) apixaban (ELIQUIS) tablet 2.5 mg 2.5 mg, oral, Every 12 hours scheduled, First dose (after last modification) on Thu01/20/24 at 2100, Decreased apixaban dose from 5 mg PO BID to Apixaban 2.5 mg po BID is appropriate for age> 80, wt>60kg, Scr > 1.5 and indication of Afib. 83 y.o. Wt Readings from Last 1 Encounters: 01/20/24 : 87.6 kg (193 lb 3.2 oz) , Indications: atrial fibrillation 2049 (Given - Provider: Leoncio Albert RN) 08 (Given - Provider: Jillian Richard, TAVARES)2015 (Given - Provider: Ju Abreu RN) 09 (Given - Provider: Reta Dennis, TAVARES) apixaban (ELIQUIS) tablet 5 mg (CANCELED) 5 mg, oral, Every 12 hours scheduled, First dose on Thu01/20/24 at 0900, Indications: atrial fibrillation 0827 (Given - Provider: Jillian Richard, TAVARES) azithromycin (ZITHROMAX) tablet 500 mg (COMPLETED) 500 mg, oral, Daily, First dose on Thu01/20/24 at 0230, For 3 days, Indications: Acutely Deteriorating COPD 0403 (Given - Provider: Mar Roche RN)0827 (Given - Provider: Jillian Richard, TAVARES) 0819 (Given - Provider: Jillian Richard, TAVARES) guaiFENesin ER (MUCINEX) extended release tablet 600 mg 600 mg, oral, 2 times daily, First dose on Thu01/21/24 at 1200, Do not crush, chew, cut, dissolve, open or otherwise manipulate tablet/capsule. 1201 (Given - Provider: Jillian Richard RN)2015 (Given - Provider: Ju Abreu RN) 09 (Given - Provider: Reta Dennis, TAVARES) ipratropium-albuteroL (DUO-NEB) 0.5-2.5 mg/3 mL nebulizer solution 3 mL 3 mL, nebulization, Every 6 hours (geriatric physical therapist), First dose on Thu01/20/24 at 0300, Indications: COPD Exacerbation 0155 (Not Given - Provider: Prema Duran, LUIS - Reason: Other - Comment: just given)0807 (Given - Provider: Marlon Justin, LUIS)1449 (Given - Provider: Marlon Justin RRT)1910 (Given - Provider: Emily Bailon RRT - Comment: clinical decision) 0105 (Given - Provider: Emily Bailon RRT - Comment: clinical decision)0743 (Given - Provider: Marlon Justin, LUIS)1603 (Given - Provider: Marlon Justin RRT)1928 (Given - Provider: Emily Bailon RRT - Comment: clinical decision) 0109 (Not Given - Provider: Emily Bailon RRT - Reason: Other - Comment: patient wanted to sleep)0748 (Given - Provider: Ruby Garay RRT)1500 (Due) irbesartan (AVAPRO) tablet 300 mg 300 mg, oral, Daily, First dose on Thu01/20/24 at 0900 08 (Given - Provider: Jillian Richard RN) 08 (Given - Provider: Jillian Richard RN) 09 (Given - Provider: Reta Dennis, TAVARES) metoprolol tartrate (LOPRESSOR) immediate release tablet 50 mg 50 mg, oral, 2 times daily, First dose (after last modification) on Thu01/20/24 at 0900 0827 (Given - Provider: Jillian Richard RN)2050 (Given - Provider: Leoncio Albert RN) 08 (Given - Provider: Jillian Richard RN)2015 (Given - Provider: Ju Abreu RN) 0908 (Given - Provider: Reta Dennis, TAVARES) montelukast (SINGULAIR) tablet 10 mg 10 mg, oral, Nightly, First dose on Thu01/20/24 at 2100 2049 (Given - Provider: Leoncio Albert RN) 2015 (Given - Provider: Ju Abreu RN) predniSONE (DELTASONE) tablet 40 mg 40 mg, oral, Daily, First dose on Thu01/20/24 at 0900, Indications: Acutely Deteriorating COPD 0827 (Given - Provider: Jillian Richard RN) 08 (Given - Provider: Jillian Richard RN) 09 (Given - Provider: Reta Dennis RN) rosuvastatin (CRESTOR) tablet 5 mg 5 mg, oral, Nightly, First dose on Thu01/20/24 at 2099 2049 (Given - Provider: Leoncio Albert RN) 2016 (Given - Provider: Ju Abreu RN) sodium chloride 0.9% bolus 1,000 mL (COMPLETED) 1,000 mL, intravenous, at 500 mL/hr, Administer over 2 Hours, Once, On Liv 01/21/24 at 0845, For 1 dose 08 (New Bag - Provider: Jillian Richard RN) sodium chloride 0.9% flush 0.5-20 mL 0.5-20 mL, intra-catheter, Every 8 hours, First dose on Thu01/20/24 at 0600, Flush volume based on line type and size. 0505 (Not Given - Provider: Mar Roche RN - Reason: Other)1726 (Given - Provider: Jillian Richard RN)2223 (Given - Provider: Leoncio Albert RN) 0606 (Given - Provider: Leoncio Albert RN)170 (Given - Provider: Jillian Richard RN)2019 (Given - Provider: Ju Abreu RN) 0519 (Given - Provider: Ju Abreu RN)1400 (Due) PRN Medication Order 01/20/2024 01/21/2024 01/22/2024 albuterol 2.5 mg /3 mL (0.083 %) nebulizer solution 2.5 mg 2.5 mg, nebulization, Every 4 hours PRN (geriatric physical therapist), wheezing, shortness of breath, Starting on Thu01/20/24 at 0300 bisacodyl EC (DULCOLAX EC) tablet 10 mg 10 mg, oral, Daily PRN, constipation, If no results 24 hours after milk of magnesia, Starting on Thu01/20/24 at 0131, Do not crush, chew, cut, dissolve, open or otherwise manipulate tablet/capsule. dextromethorphan-guaiFENe sin (ROBITUSSIN-DM) 2-20 mg/mL syrup 10 mL 10 mL, oral, Every 4 hours PRN, cough, Starting on Thu01/20/24 at 0153, Indications: Cough 0056 (Given - Provider: Ju Abreu RN) magnesium hydroxide (MILK OF MAGNESIA) 80 mg/mL (33.3 mg/mL as elemental magnesium) oral suspension 30 mL 30 mL, oral, Daily PRN, constipation, Starting on Thu01/20/24 at 0131 0021 (Given - Provider: Leoncio Albert RN) mineral oil (FLEET MINERAL OIL) enema 133 mL 133 mL (1 enema), rectal, Daily PRN, constipation, if no results 24 hours after bisacodyl, Starting on Thu01/20/24 at 0131, Indications: constipation ondansetron (ZOFRAN) injection 4 mg(Linked Group 1) 4 mg, intravenous, Administer over 2 Minutes, Every 6 hours PRN, nausea, vomiting, if not tolerating PO, Starting on Thu01/19/24 at 2255, Indications: Nausea and Vomiting ondansetron ODT (ZOFRAN-ODT) disintegrating tablet 4 mg(Linked Group 1) 4 mg, oral, Every 6 hours PRN, nausea, vomiting, Starting on Thu01/19/24 at 2255, Indications: Nausea and Vomiting perflutren protein-a (OPTISON) 3 mL in sodium chloride 0.9% 8 mL syringe (COMPLETED) 1-8 mL, intravenous, Once in imaging, contrast, Starting on Thu01/20/24 at 1135, For 1 dose, Intra-Procedure (CV) 1136 (Contrast Given - Provider: Ailyn Don, [facility]) sodium chloride 0.9% flush 0.5-20 mL 0.5-20 mL, intra-catheter, As needed, line care, Starting on Thu01/20/24 at 0131, Flush volume based on line type and size. Flush before and after each use. Linked Groups Order Group 1: ondansetron ODT (ZOFRAN-ODT) disintegrating tablet 4 mgJump to med 4 mg, oral, Every 6 hours PRN, nausea, vomiting, Starting on Thu01/19/24 at 2255, Indications: Nausea and Vomiting Or ondansetron (ZOFRAN) injection 4 mgJump to med 4 mg, intravenous, Administer over 2 Minutes, Every 6 hours PRN, nausea, vomiting, if not tolerating PO, Starting on Thu01/19/24 at 2255, Indications: Nausea and Vomiting documented in this encounter Orders Medications Ordered That Clint ht Not Have Been Administered Count Last Ordered Date First Ordered Date albuterol 2.5 mg /3 mL (0.08 3 %) nebulizer solution 2.5 mg 3 01/20/2024 01/19/2024 amLODIPine (NORVASC) tablet 5 mg 1 01/20/20 24 bisacodyl EC (DULCOLAX EC) tablet 10 mg 1 0 01/20/2024 metoprolol tartrate (LOPRESS OR) immediate release tablet 25 mg 1 01/20/2024 mineral oil (FLEET MINERAL O IL) enema 133 mL 1 01/20/2024 sodium chloride 0.9% flush 0.5-20 mL 1 01/07 ondansetron (ZOFRAN) injection 4 mg 1 01/18 ondansetron ODT (ZOFRAN-ODT) disintegrating tablet 4 mg 1 01/19/2024 Diet Count Last Ordered Date First Orde red Date ADULT DISCHARGE DIET 1 01/22/2024 Nursing Count Last Ordered Date First Orde red Date DISCHARGE ACTIVITY 3 01/22/2024 DISCHARGE CALL PROVIDER 8 01/22/2024 DISCHARGE INSTRUCTIONS 1 01/22/2024 ACTIVITY 1 01/19/2024 CONTINUOUS PULSE OXIMETRY 1 01/19/2024 NOTIFY PROVIDER (SPECIFY) 1 01/19/2024 TELEMETRY MONITORING 1 01/19/2024 Consult Count Last Ordered Date First Orde red Date IP CONSULT TO CARDIOLOGY 1 01/20/2024 IV Count Last Ordered Date First Orde red Date SALINE LOCK IV 1 01/19/2024 Admission Count Last Ordered Date First Orde red Date ADMIT TO INPATIENT 2 01/19/2024 Discharge Count Last Ordered Date First Orde red Date DISCHARGE PATIENT 1 01/22/2024 CORE MEASURES Count Last Ordered Date First Ord ered Date REASON FOR NO VTE PROPHYLAXIS AT ADMISSION 1 01/19/2024 documented in this encounter Additional Health Concerns Infection Onset Date Last Indicated Resolved Time COVID: Suspected 01/19/2024 01/19/2024 01/19/2024 10:16 PM CDT documented as of this encounter Care Teams Real Estate Services Administrator Relationship Specialty Start Date End Date Cassius London MD [address] [place] [address] PCP - General 02/06/17 documented as of this encounter
--- OUTSIDE RECORDS SUMMARY | 2024-10-26 01:15 | XMS_ITS | Encounter Summary ---
Author Organization [facility] Address [address] [place] [address] Phone Care Team Providers Care Computer Teacher Name Role Phone Cassius London MD Primary Care Provider + Encounter Details Date Type Department Care Team (Late st Contact Info) Description 06/22/2023 Telephone [facility] Surgery 2 [facility] [address] [place] [id number] Brooke Haines, RUSSEL [address] [place] [address] Social History Tobacco Use Types Packs/Day Years [...] often do you attend chur ch or restorationism services? 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 All questions were answered. documented in this encounter Plan of Treatment Not on file documented as of this encounter Visit Diagnoses Not on filedocumented in this encounter Care Teams Computer Teacher Relationship Specialty Start Date End Date Cassius London MD [address] [place] [address] PCP - General 02/06/17 documented as of this encounter
--- OUTSIDE RECORDS SUMMARY | 2024-10-26 01:15 | XMS_ITS | Encounter Summary ---
Author Organization [facility] Address [address] [place] [address] Care Team Providers Care News Analyst Name Role Phone Cassius London MD Primary Care Provider + Encounter Details Date Type Department Care Team (Late st Contact Info) Description 03/18/2024 9:05 AM CDT [address] [phone] Social History Tobacco Use Types Packs/Day Years Used Date Smoking Tobacco: Former Cigarettes Q uit: 2012 Smokeless Tobacco: Never Alcohol Use Standard Drinks/Week Comments No 0 (1 standard drink = 0.6 oz pur e alcohol) [facility] Utilities Answer Date Recorded In the past [...] often do you attend chur ch or zoroastrian services? Never 01/20/2024 Do you belong to any clubs o r organizations such as quaker groups, unions, fraternal or athletic groups, or [...] place to sleep or slept in a skilled nursing (including now)? No 01/20/2024 Personal Safety Answer Date Recorded Have you ever been in or are you currently in a harmful physical or emotional relationship or is someone making you feel afraid or unsafe? 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 Gender Identity Not on file Sexual Orientation Not on file documented as of this encounter Plan of Treatment Not on file documented as of this encounter Procedures Procedure Name Priority Date/Time Associated Diagnosis Comments CREATININE, WHOLE BLOOD STAT 03/18/2024 9:05 AM CDT documented in this encounter Results * (ABNORMAL) Creatinine, whole blood (03/18/2024 9:05 AM CDT) Creatinine, bld 1.89(H) 0.60 - 1.30 mg/dL Blood 03/18/2024 9:05 AM CDT 03/18/2024 9:10 AM CDT us Sourav Veronica MD LAB BLOOD ORDERABLES Fi nal Result [facility] ([facility]) [facility] Department [place] [address] documented in this encounter Visit Diagnoses Not on filedocumented in this encounter Care Teams News Analyst Relationship Specialty Start Date End Date Cassius London MD [address] [place] [address] PCP - General 02/06/17 documented as of this encounter
--- OUTSIDE RECORDS SUMMARY | 2024-10-26 01:16 | XMS_ITS | Encounter Summary ---
Author Organization [facility] Address [address] [place] [address] Care Team Providers Care Wood Chopper Name Role Phone Cassius London MD Primary Care Provider + Reason for Visit * Diagnostic Imaging (Routine) - Closed Specialty Diagnoses / Procedures Referred By Contac t Referred To Contact Diagnoses Congestive heart failure, unspecified HF chronicity, unspecified heart failure type (HCC) Procedures NM MPI SPECT (Rest and/or Stress) Multiple Studies Joleen Neal NP Phone: tel: fax: [address] [phone] Referral ID Status Reason Start Date Expiration Date Visits Re quested Visits Authorized [id number] Closed 02/26/2023 03/27/2024 1 1 Encounter Details Date Type Department Care Team (Latest Contact Info) Description 04/14/2023 6:41 AM CDT - 04/14/2023 11:59 PM CDT Hospital Encounter [facility] [address] [place] [id number] Discharge Disposition: Discharge to home or self [...] often do you attend chur ch or yarsani services? Never 01/12/2023 Do you belong to any clubs o r organizations such as religion groups, unions, fraternal or athletic groups, or [...] slept in a custodial (including now)? 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 90 tablet 07/29/2017 montelukast (SINGULAIR) 10 mg tablet Take 1 tablet (10 mg total) by mouth nightly 09/09/2021 jbrtiolk-oif-kwrri -vit K-lycop (ONE-A-DAY MEN'S MULTIVITAMIN) 400-20-300 mcg tablet Take one by mouth one time per day 0 0 08/23/2008 amlodipine-atorvas tatin (CADUET) 5-10 mg per tablet Take 1 tablet by mouth daily 3 apixaban (ELIQUIS) 5 mg tabletIndications: atrial fibrillation Take 1 tablet (5 mg total) by mouth every 12 (twelve) hours 30 tablet 2 01/15/2023 3 calcium carbonate (OS-PINEDA) 1,500 mg (600 mg of elemental calcium) tablet Take 1 tablet (1,500 mg total) by mouth daily. 30 tablet 07/29/2017 3 fluticasone propionate (FLONASE) 50 mcg/actuation nasal spray [...] needed for pain 25 tablet 01/24/2022 4 Trelegy Ellipta 100-62.5-25 mcg inhaler TAKE 1 INHALATION BY MOUTH DAILY 08/28/2021 3 documented as of this encounter Discharge Disposition Disposition Code Departure Means Destination Discharge to home or self care documented in this encounter Plan of Treatment Not on file documented as of this encounter Procedures Procedure Name Priority Date/Time Associated Diagnosis Comments STRESS TEST FOR DUAL READ Schedule Routine, Read Routine (OP Routine) 04/14/2023 8:49 AM CDT Congestive heart failure, unspecified HF chronicity, unspecified heart failure type (HCC) NM MPI SPECT (REST AND/OR STRESS) MULTIPLE STUDIES Schedule Routine, Read Routine (OP Routine) 04/14/2023 8:49 AM CDT Congestive heart failure, unspecified HF chronicity, unspecified heart failure type (HCC) documented in this encounter Results * Stress Test for Myocardial Perfusion (04/14/2023 8:49 AM CDT) Anatomical Region Laterality Modality Nuclear Medicine 04/14/2023 7:00 AM CDT Narrative 04/14/2023 11:26 AM CDT [address] [place] [address] [employer]iscan Report Patient Name: CLARITA JUAN L : 1940 Study Date: 04/14/2023 7:00:00 AM Gender: M Tech: Ref.Provider: JOLEEN NEAL Height(Cm): BSA: Weight(Kg): Order Provider: JOLEEN NEAL - Procedures: Pharmacologic SPECT Report.: Myocardial perfusion imaging with Sestamibi SPECT at rest and post regadenoson (Lexiscan) infusion. Indications: Congestive Heart Failure. Findings: Procedure Data: Resting HR 63 bpm. Peak HR: 102 bpm. Predicted Maximal HR 139 bpm. Target HR: 0 bpm. Percent Max Predicted HR Achieved: 73.38 %. Baseline BP: 137/73 mmHg. Peak BP: 130/64 mmHg. Exercise Time: 00:15. Medications: Free Text. Performed By: Supervising Physician: The Supervising Physician is megan vazquez. Reason for Termination: Lexiscan protocol complete. Resting ECG: Normal sinus rhythm. Post Pharm ECG: No diagnostic ST changes. Arrhythmia: Rare APCs. Conclusions: 1. Negative Lexiscan pharmacologic stress test for chest pain or EKG changes. 2. Nuclear images are pending and they will be reported separately. Electronically Signed By: Britt Mares MD 2023-04-14 11:26:54 CDT CC: CC: Procedure Note Britt Mares MD - 04/14/[address] [address] First Coverage Report Patient Name: CLARITA JUAN LPatient ID: [id number] : [id number] Date: 04/14/2023 7:00:00 AM Gender: MAccession #: [id number] Tech: Ref.Provider: JOLEEN NEAL Height(Cm): BSA: Weight(Kg): Order Provider: JOLEEN NEAL - Procedures: Pharmacologic SPECT Report.: Myocardial perfusion imaging with Sestamibi SPECT at rest and postregadenoson (Lexiscan) infusion. Indications: Congestive Heart Failure. Findings: Procedure Data: Resting HR 63 bpm. Peak HR: 102 bpm. Predicted Maximal HR 139 bpm. TargetHR: 0 bpm. Percent Max Predicted HR Achieved: 73.38 %. Baseline BP: 137/73 mmHg. PeakBP: 130/64 mmHg. Exercise Time: 00:15. Medications: Free Text. Performed By: Supervising Physician: The Supervising Physician is megan vazquez. Reason for Termination: Lexiscan protocol complete. Resting ECG: Normal sinus rhythm. Post Pharm ECG: No diagnostic ST changes. Arrhythmia: Rare APCs. Conclusions: 1. Negative Lexiscan pharmacologic stress test for chest pain or EKGchanges. 2. Nuclear images are pending and they will be reported separately. Electronically Signed By: Britt Mares MD 2023-04-14 11:26:54 CDT CC: CC: us Joleen Neal NP CV STRESS PROCEDURES Final R esult * NM MPI SPECT (Rest and/or Stress) Multiple Studies (04/14/2023 8:49 AM CDT) Anatomical Region Laterality Modality Body N/A Nuclear Medicine 04/14/2023 7:14 AM CDT Narrative 04/14/2023 12:19 PM CDT [address] [address] [employer] Report Patient Name: CLARITA JUAN L : 1940 Study Date: 04/14/2023 7:14:27 AM Gender: M Tech: Ref.Provider: JOLEEN NEAL Height(Cm): BSA: Weight(Kg): Order Provider: JOLEEN NEAL - Procedures: Pharmacologic SPECT Report.: Myocardial perfusion imaging with Sestamibi SPECT at rest and post regadenoson (Lexiscan) infusion. Indications: Congestive Heart Failure. Findings: Procedure Data: Sestamibi injected at rest was 10.5 millicuries. Sestamibi injected at peak exercise was 30.8 millicuries. Predicted Maximal HR 139 bpm. Perfusion: Normal perfusion imaging. LV Function: Left ventricular ejection fraction is 59 %. Conclusions: 1. Myocardial Perfusion: Normal rest and stress images. 2. Left ventricle: Normal size and systolic function (EF >50%). Electronically Signed By: Britt Mares MD 2023-04-14 12:19:18 CDT CC: CC: Procedure Note Britt Mares MD - 04/14/[address] [place] [address] Lexiscan Report Patient Name: CLARITA JUAN LPatient ID: [id number] : [id number] Date: 04/14/2023 7:14:27 AM Gender: MAccession #: [id number] Tech: Ref.Provider: JOLEEN NEAL Height(Cm): BSA: Weight(Kg): Order Provider: JOLEEN NEAL - Procedures: Pharmacologic SPECT Report.: Myocardial perfusion imaging with Sestamibi SPECT at rest and postregadenoson (Lexiscan) infusion. Indications: Congestive Heart Failure. Findings: Procedure Data: Sestamibi injected at rest was 10.5 millicuries. Sestamibi injected atpeak exercise was 30.8 millicuries. Predicted Maximal HR 139 bpm. Perfusion: Normal perfusion imaging. LV Function: Left ventricular ejection fraction is 59 %. Conclusions: 1. Myocardial Perfusion: Normal rest and stress images. 2. Left ventricle: Normal size and systolic function (EF >50%). Electronically Signed By: Britt Mares MD 2023-04-14 12:19:18 CDT CC: CC: Joleen Neal DESIGNER/WRITER IMG NM PROCEDURES Final Resu lt documented in this encounter Visit Diagnoses Not on filedocumented in this encounter Care Teams Wood Chopper Relationship Specialty Start Date End Date Cassius London MD [address] [place] [address] PCP - General 02/06/17 documented as of this encounter
--- OUTSIDE RECORDS SUMMARY | 2024-10-26 01:16 | XMS_ITS | Encounter Summary ---
Author Organization [facility] Medical Group Address [address] [address] [place] [address] Care Team Providers Care Aircraft Engine Specialist Name Role Phone Cassius London MD Primary Care Provider + Encounter Details Date Type Department Care Team (Late st Contact Info) Description 03/23/2023 Orders Only [place] Illusionist [address] [place] [address] [address] [place] [address] Maya Lynch Social History Tobacco Use Types Packs/Day Years [...] often do you attend chur ch or jehovah's witness services? Never 01/12/2023 Do you belong to [...] place to sleep or slept in a intermediate (including now)? 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
--- OUTSIDE RECORDS SUMMARY | 2024-10-26 01:16 | XMS_ITS | Encounter Summary ---
Author Organization [facility] Healthcare Address [address] [place] [address] Care Team Providers Care Night Shift Name Role Phone Cassius London MD Primary Care Provider + Reason for Visit * Diagnostic Imaging (Routine) - Closed Specialty Diagnoses / Procedures Referred By Contac t Referred To Contact Diagnoses Congestive heart failure, unspecified HF chronicity, unspecified heart failure type (HCC) Procedures NM MPI SPECT (Rest and/or Stress) Multiple Studies Joleen Neal NP Phone: tel: fax: [address] [phone] Referral ID Status Reason Start Date Expiration Date Visits Re quested Visits Authorized [id number] Closed 02/26/2023 03/27/2024 1 1 Encounter Details Date Type Department Care Team (Latest Contact Info) Description 04/14/2023 6:41 AM CDT - 04/14/2023 11:59 PM CDT Hospital Encounter [facility] [address] [place] [address] Discharge Disposition: Discharge to home or self [...] often do you attend chur ch or anabaptist services? Never 01/12/2023 Do you belong to any clubs o r organizations such as evangelical groups, unions, fraternal or athletic groups, or [...] place to sleep or slept in a fdc (including now)? 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 Gender Identity Not on file Sexual Orientation [...] (10 mg total) by mouth nightly 09/09/2021 [id number] -vit K-lycop (ONE-A-DAY MEN'S MULTIVITAMIN) 400-20-300 mcg [...] AM CDT Narrative 04/14/2023 11:26 AM CDT [address] [place] [address] Lexiscan Report Patient Name: CLARITA JUAN Vahe : 1940 Study Date: 04/14/2023 7:00:00 AM [...] Procedure Note Britt Mares MD - 04/14/[address] [address] [employer] Report Patient Name: CLARITA JUAN LPatient ID: [id number] : [id number] Date: 04/14/2023 7:00:00 AM Gender: MAccession #: [id number] Tech: Ref.Provider: JOLEEN NEAL Height(Cm): BSA: Weight(Kg): [...] 2023-04-14 11:26:54 CDT CC: CC: us Joleen Hector Neal PREPARATION SUPERVISOR CANNING CV STRESS PROCEDURES Final R esult documented in this encounter Visit Diagnoses Not on filedocumented in this encounter Orders Medications Ordered That Clint ht Not Have Been Administered Count Last Ordered Date First Ordered Date regadenoson (LEXISCAN) 0.4 m g/5 mL injection 0.4 mg 1 04/14/2023 documented in this encounter Care Teams Night Shift Relationship Specialty Start Date End Date Cassius London MD [address] [place] [address] PCP - General 02/06/17 documented as of this encounter
--- OUTSIDE RECORDS SUMMARY | 2024-10-26 01:16 | XMS_ITS | Encounter Summary ---
Author Organization [facility] Healthcare Address [address] [place] [address] Care Team Providers Care Resort Host Name Role Phone Cassius London MD Primary Care Provider + Reason for Visit * Diagnostic Imaging (Routine) - Closed Specialty Diagnoses / Procedures Referred By Contac t Referred To Contact Diagnoses Congestive heart failure, unspecified HF chronicity, unspecified heart failure type (HCC) Procedures NM MPI SPECT (Rest and/or Stress) Multiple Studies Bg Miller NP Phone: tel: fax: [address] [phone] Referral ID Status Reason Start Date Expiration Date Visits Re quested Visits Authorized [id number] Closed 02/26/2023 03/27/2024 1 1 Encounter Details Date Type Department Care Team (Latest Contact Info) Description 04/14/2023 6:42 AM CDT - 04/14/2023 11:59 PM CDT Hospital Encounter [facility] [address] [place] [id number] Discharge Disposition: Discharge to home or self [...] often do you attend chur ch or church services? Never 01/12/2023 Do you belong to any clubs o r organizations such as restorationism groups, unions, fraternal or athletic groups, or [...] slept in a assisted (including now)? 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 Gender Identity Not on file Sexual [...] (10 mg total) by mouth nightly 09/09/2021 tjiduypx-awo-wdfiw -vit K-lycop (ONE-A-DAY MEN'S MULTIVITAMIN) 400-20-300 mcg [...] failure type (HCC) documented in this encounter Visit Diagnoses Not on filedocumented in this encounter Administered Medications Inactive Administered Medications - up to 3 most recent administrations Medication Order MAR Action Action Date Dose Rate Site tc-99m tetrofosmin (MYOVIEW) injection 30.8 millicurie 30.8 millicurie, intravenous, Once in imaging, radiopharmaceutical, Starting on Thu04/14/23 at 0846, For 1 dose, Indications: Diagnostic RadiographyIndications:Guerita gnostic Radiography Given 04/14/2023 8:15 AM CDT 30.8 millicuries documented in this encounter Care Teams Resort Host Relationship Specialty Start Date End Date Cassius London MD [address] [place], [place] [address] PCP - General 02/06/17 documented as of this encounter
--- OUTSIDE RECORDS SUMMARY | 2024-10-26 01:16 | XMS_ITS | Encounter Summary ---
Author Organization [facility] Healthcare Address [address] [place] [address] Care Team Providers Care Abnormal Psychology Teacher Name Role Phone Cassius London MD Primary Care Provider + Encounter Details Date Type Department Care Team (Late st Contact Info) Description 01/22/2023 10:30 AM CDT [address] [phone] Acute kidney injury (CMS/HCC) (HCC); Leukocytosis, unspecified type Social History Tobacco Use Types Packs/Day Years [...] often do you attend chur ch or islam services? Never 01/12/2023 Do you belong to [...] in a care home (including now)? 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 73 m2 [facility] ([place]) Comment: Interpretive Data Reference Interval Normal ?>/= [...] of Race in Diagnosing Kidney Disease, JASN 202). The CKD-EPI equation should not be used for patients with unstable renal function and has not been validated in children and those over 70. Current interpretive data was last reviewed 2021. Blood 01/22/2023 10:5 9 AM CDT 01/22/2023 12:33 PM CDT us Donna Raygoza MD LAB BLOOD ORDERABLES Final Res ult [facility]KA [facility] ([place]) [address] [facility] Department of Laboratories [place], [place] [id number] * (ABNORMAL) CBC without differential (01/22/2023 10:59 AM CDT) WBC 11.8(H) 3.8 - 9.9 K/cumm [facility] ([place]) Hgb 13.1 13.0 - 17.5 g/dL [facility] ([place]) Hct 40.1 38.9 - 50.3 % [facility] ([place]) Plt 283 150 - 400 K/cumm [facility] ([place]) MPV 9.6 9.1 - 12.3 fL [facility] ([place]) RBC 4.01(L) 4.30 - 5.80 M/cumm [facility] ([place]) MCV 100.0(H) 81.3 - 96.4 fL [facility] ([place]) MCH 32.7 27.1 - 33.3 pg [facility] ([place]) MCHC 32.7 32.3 - 35.7 g/dL [facility] ([place]) RDW CV 13.7 11.1 - 14.9 % [facility] ([place]) RDW SD 49.7(H) 35.7 - 48.1 fL [facility] ([place]) NRBC abs 0.00 0.00 - 0.01 K/cumm [facility] ([place]) Blood (Blood, Venous) 01/22/2023 10:59 AM CDT 01/22/2023 12:33 PM CDT us Donna Raygoza MD LAB BLOOD ORDERABLES Final Res ult [facility] ([place]) [address] [facility] Department of Laboratories [place], [place] [id number] * (ABNORMAL) Basic metabolic panel (01/22/2023 10:59 AM CDT) Sodium 136 135 - 145 mmol/L [facility] ([place]) Potassium, pl 4.9 3.3 - 4.9 mmol/L [facility] ([place]) Chloride 99 97 - 110 mmol/L [facility] ([place]) CO2 30 22 - 32 mmol/L [facility] ([place]) Anion gap 7 2 - 15 mmol/L [facility] ([place]) BUN 28(H) 8 - 25 mg/dL [facility] ([place]) Creatinine 1.38(H) 0.80 - 1.30 mg/dL [facility] ([place]) Glucose 92 70 - 199 mg/dL [facility] ([place]) Comment: Interpretive Data Fasting glucose >/= [...] classification and Diagnosis of Diabetes Diabetes Care 202; 46: S19-S40. Current interpretive data was last revised 2022. Calcium 9.0 8.5 - 10.3 mg/dL [facility] ([place]) Blood 01/22/2023 10:5 9 AM CDT 01/22/2023 12:33 PM CDT us Donna Raygoza MD LAB BLOOD ORDERABLES Final Res ult [facility] ([place]) [address] [facility] Department [place] [address] documented in this encounter Visit Diagnoses Diagnosis Acute kidney injury (HCC) Leukocytosis, unspecified type documented in this encounter Care Teams Abnormal Psychology Teacher Relationship Specialty Start Date End Date Cassius London MD [address] [place] [place] [address] PCP - General 02/06/17 documented as of this encounter
--- OUTSIDE RECORDS SUMMARY | 2024-10-26 01:16 | XMS_ITS | Encounter Summary ---
Author Organization [facility] Medical Group Address [address] [address] [place] [address] Care Team Providers Care Dean Of Women Name Role Phone Cassius London MD Primary Care Provider + Reason for Referral * Diagnostic Imaging (Routine) - Closed Specialty Diagnoses / Procedures Referred By Contac t Referred To Contact Diagnoses Congestive heart failure, unspecified HF chronicity, unspecified heart failure type (HCC) Procedures NM MPI SPECT (Rest and/or Stress) Multiple Studies Joleen Neal NP Phone: tel: fax: [address] [phone] Referral ID Status Reason Start Date Expiration Date Visits Re quested Visits Authorized [id number] Closed 02/26/2023 03/27/2024 1 1 Reason for Visit * Reason Comments Atrial Fibrillation Encounter Details Date Type Department Care Team (Late st Contact Info) Description 02/26/2023 10:30 AM CDT Office Visit [facility] at [address] [address] Joleen Neal NP [address] [place] [address] Paroxysmal A-fib (CMS/HCC) (HCC) (Primary Dx); [...] often do you attend chur ch or confucianism services? Never 01/12/2023 Do you belong to any clubs o r organizations such as yazidism groups, unions, fraternal or athletic groups, or [...] slept in a alf (including now)? 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 Gender Identity Not on file Sexual Orientation Not on file documented as of this encounter Last Filed Vital Signs Vital Sign Reading Time Taken Comments Blood Pressure 173/75 02/26/2023 10:37 AM CDT Pulse 77 02/26/2023 10:37 AM CDT Temperature - - Respiratory Rate 18 02/26/2023 10:37 AM CDT Oxygen Saturation - - Inhaled Oxygen Concentration - - Weight 88 kg (194 lb) 02/26/2023 10:37 AM CDT Height 172.7 cm (5' 8 ) 02/26/2023 10:37 AM CDT Body Mass Index 29.5 02/26/2023 10:37 AM CDT documented in this encounter Ordered Prescriptions Prescription Sig Dispense Quantity Refills Last Filled Start Date End Date irbesartan-hydroCH LOROthiazide (AVALIDE) 300-12.5 mg per tabletIndications: hypertension Take 1 tablet by mouth daily 90 tablet 3 02/26/2023 03/21/2024 documented in this encounter Progress Notes * Joleen Neal NP - 02/26/2023 10:30 AM CDT Cardiology note Reason for Office Visit: New patient office visit for AFib History of Present Illness: [...] understanding of plan of care listed below. Weight down 5 lbs Past Medical History: Diagnosis Date Asbestosis (CMS/HCC) (HCC) asbestosis Cancer (CMS/HCC) (HCC) biopsy showed small area of prostate cancer Chronic diarrhea COPD (chronic obstructive pulmonary disease) (HCC) HX OTHER MEDICAL dyslipidemia HX OTHER MEDICAL PAD HX OTHER MEDICAL ED HX OTHER MEDICAL 01-pulmonolgist HX OTHER MEDICAL v. 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 Vital Signs: Vitals BP (!) 173/75 (BP Location: Left arm, Patient Position: Sitting) Pulse 77 Resp 18 Ht 172.7 cm (5' 8 ) Wt 88 kg (194 lb) BMI 29.50 kg/m?? Vitals: 02/26/23 1037 BP: (!) 173/75 Pulse: 77 Resp: 18 Wt Readings from Last 3 Encounters: 02/26/23 88 kg (194 lb) 01/15/23 90.5 kg (199 lb 8.3 oz) 02/06/22 85.3 kg (188 lb) Physical Exam: Physical Exam Constitutional: Appearance: Normal appearance. HENT: Nose: Nose normal. Eyes: Pupils: Pupils are [...] [facility]AL[facility] Lab Results Component Value Date CHOL 146 12/01/2017 TRIG 122.0 12/01/2017 HDL 51 12/01/2017 LDL 72 01/21/2017 Lab Results Component Value Date TSH 0.96 07/24/2017 FREET4 1.10 07/24/2017 Testing: No results found. [...] Rate: 133 bpm RR Interval: 449 msec W[place] Interval: 0 msec QRS Duration: 99 msec QT Interval: 282 msec QTC Interval: 360 msec Impression and Plan: Paroxysmal atrial fibrillation with RVR chronic systolic CHF Obesity Hyperlipidemia Hypertension COPD Plan Continue Eliquis for anticoagulation Check Lexiscan Monitor BP/heart rate closely Check 14 day monitor The patient is asked to make an attempt to improve diet and exercise patterns to aid in medical management of this problem Increase avalide to 300-12.5mg Monitor weights daily and for signs of worsening heart failure Follow-up 3 months or sooner pending testing Diagnoses and all orders for this visit: Paroxysmal A-fib (CMS/HCC) (HCC) (Primary) Mixed hyperlipidemia Congestive heart failure, unspecified HF chronicity, unspecified heart failure type (HCC) - NM MPI SPECT (Rest and/or Stress) Multiple Studies; Future - Basic metabolic panel; Future - Lipid panel; Future - Iron profile w/ IBC; Future - TSH reflex to free T4; Future Stage 3a chronic kidney disease (HCC) Other orders - irbesartan-hydroCHLOROthiazide (AVALIDE) 300-12.5 mg per tablet; Take 1 tablet by mouth daily Joleen Neal NP 02/26/2023 11:16 AM Cc:Cassius London MD documented in this encounter Miscellaneous Notes * Addendum Note - Reina Sierra - 02/26/2023 10:30 AM CDTAddended by: REINA SIERRA on: 03/04/2023 09:14 AM Modules accepted: Orders documented in this encounter Plan of Treatment Not on file documented as of this encounter Results * NM MPI SPECT (Rest and/or Stress) Multiple Studies (04/14/2023 8:49 AM CDT) Anatomical Region Laterality Modality Body N/A Nuclear Medicine 04/14/2023 7:14 AM CDT Narrative 04/14/2023 12:19 PM CDT [address] [place] [address] [employer] Report Patient Name: CLARITA JAUNVahe : 1940 Study Date: 04/14/2023 7:14:27 AM [...] Procedure Note Britt Mares MD - 04/14/2023 [place] [address] [facility] Report Patient Name: CLARITA JUAN LPatient ID: [id number] : [id number] Date: 04/14/2023 7:14:27 AM Gender: MAccession #: [id number] Tech: Ref.Provider: JOLEEN NEAL Height(Cm): BSA: Weight(Kg): [...] 2023-04-14 12:19:18 CDT CC: CC: Joleen Neal LETTER OF CREDIT CLERK IMG NM PROCEDURES Final Resu lt * (ABNORMAL) Basic metabolic panel (03/04/2023 9:20 AM CDT) Sodium 139 135 - 145 mmol/L [facility] ([place]) Potassium, pl 4.1 3.3 - 4.9 mmol/L [facility] ([place]) Chloride 101 97 - 110 mmol/L [facility] ([place]) CO2 28 22 - 32 mmol/L [facility] ([place]) Anion gap 9 2 - 15 mmol/L [facility] ([place]) BUN 22 8 - 25 mg/dL [facility] ([place]) Creatinine 1.39(H) 0.80 - 1.30 mg/dL [facility] ([place]) Glucose 119 70 - 199 mg/dL [facility] ([place]) [...] interpretive data was last revised 2022. Calcium 8.9 8.5 - 10.3 mg/dL [facility] ([place]) Blood 03/04/2023 9:20 AM CDT 03/04/2023 11:02 AM CDT Joleen Neal NP LAB BLOOD ORDERABLES Final R esult NNEKA PICHARDO ([place]) 1 [facility] [place] [address] * (ABNORMAL) Lipid panel (03/04/2023 9:20 AM CDT) Cholesterol 178 30 - 199 mg/dL [facility] ([place]) Comment: Interpretive Data Ages < or = 19 years ??Acceptable: ? <170 mg/dL ??Borderline high: ??170-199 mg/dL ??High: ? >or= 200 mg/dL Ages > or = 20 years ??Desirable: ?<200 mg/dL ??Borderline high: ??200-239 mg/dL ??High: ? >or= 240 mg/dL Literature References: 1. Expert Panel on Integrated Guidelines for Cardiovascular Health and Risk Reduction in Children and Adolescents. Pediatrics 2011;128:S213 2. NCEP Expert Panel. Circulation 2004;110:227 Current Interpretive Data was last revised on 2018. Triglycerides 184(H) <=149 mg/dL [facility] PICH[facility] ([place]) Comment: Interpretive Data Ages < or = 9 years ??Acceptable: ? <75 mg/dL ??Borderline high: ??75-99 mg/dL ??High: ? >or= 100 mg/dL Ages 10 to 20 years ??Acceptable: ? <90 mg/dL ??Borderline high: ??90-129 mg/dL ??High: ? >or= 130 mg/dL Ages > or = 20 years ??Desirable: ?<150 mg/dL ??Borderline high: ??150-199 mg/dL ??High: ? 200-499 mg/dL ?Very high: ?? >or= 499 mg/dL Literature References: 1. Expert Panel on Integrated Guidelines for Cardiovascular Health and Risk Reduction in Children and Adolescents. Pediatrics 2011;128:S213 2. NCEP Expert Panel. Circulation 2004;110:227 Current Interpretive Data was last revised on 2018. HDL 44 >=40 mg/dL [facility] ([place]) Comment: Interpretive Data Ages < or = 19 years ??Acceptable: ? >45 mg/dL ??Borderline low: ?? 40-45 mg/dL ??Low: ? <40 mg/dL Ages > or = 20 years ??Desirable: ?>or= 60 mg/dL ??Low: ? <40 mg/dL Literature References: 1. Expert Panel on Integrated Guidelines for Cardiovascular Health and Risk Reduction in Children and Adolescents. Pediatrics 2011;128:S213 2. NCEP Expert Panel. Circulation 2004;110:227 Current Interpretive Data was last revised on 2018. LDL, calculated 97 <=129 mg/dL [facility]EN[facility] PICHARDO ([place]) Comment: Interpretive Data Ages < or = 19 years ??Acceptable: ? <110 mg/dL ??Borderline high: ??110-129 mg/dL ??High: ?>or= 130 mg/dL Ages > or = 20 years ??Optimal: ? <100 mg/dL ??Near optimal: ?100-129 mg/dL ??Borderline high: ?? 130-159 mg/dL ??High: ?>160 mg/dL Literature References: 1. Expert Panel on Integrated Guidelines for Cardiovascular Health and Risk Reduction in Children and Adolescents. Pediatrics 2011;128:S213 2. NCEP Expert Panel. Circulation 2004;110:227 Current Interpretive Data was last revised on 2018. Non-HDL Cholesterol 134 mg/dL [facility] PICHARDO ([place]) Comment: Interpretive Data Ages < or = 19 years ??Acceptable: ?<120 mg/dL ??Borderline high: ??120-144 mg/dL ??High: ?>145 mg/dL Ages > or = 20 years ??When triglycerides are >200 mg/dL, Non-HDL cholesterol is a secondary target of ? therapy with treatment goals that are 30 mg/dL greater than the LDL cholesterol target. ? Literature References: 1. Expert Panel on Integrated Guidelines for Cardiovascular Health and Risk Reduction in Children and Adolescents. Pediatrics 2011;128:S213 2. NCEP Expert Panel. Circulation 2004;110:227 Current Interpretive Data was last revised on 2018. Chol/HDL ratio 4 [facility] ([place]) Blood 03/04/2023 9:20 AM CDT 03/04/2023 11:02 AM CDT Joleen Neal LETTER OF CREDIT CLERK LAB BLOOD ORDERABLES Final R esult [facility]KA PICHARDO ([place]) 1 [facility] [place] [address] * Iron profile w/ IBC (03/04/2023 9:20 AM CDT) Iron 86 50 - 150 mcg/dL [facility] ([place]) TIBC 256 250 - 400 mcg/dL [facility] ([place]) Transferrin saturation 34 20 - 50 % [facility]NEKA PICHARDO ([place]) Blood 03/04/2023 9:20 AM CDT 03/04/2023 11:02 AM CDT Joleen Neal LETTER OF CREDIT CLERK LAB BLOOD ORDERABLES Final R esult NNEKA PICHARDO ([place]) 1 [facility] [place] [address] * TSH reflex to free T4 (03/04/2023 9:20 AM CDT) TSH 1.56 0.30 - 4.20 mcIUnit/mL [facility] ([place]) Blood 03/04/2023 9:20 AM CDT 03/04/2023 11:02 AM CDT Joleen Neal NP LAB BLOOD ORDERABLES Final R esult [facility]KA PICHARDO ([place]) 1 [facility] [place] [address] documented in this encounter Visit Diagnoses Diagnosis Paroxysmal A-fib (CMS/HCC) (HCC)- Primary Mixed hyperlipidemia Congestive heart failure, unspecified HF chronicity, unspecified heart failure type (HCC) Stage 3a chronic kidney disease (HCC) Congestive heart failure, unspecified HF chronicity, unspecified heart failure type (HCC) documented in this encounter Discontinued Medications Medication Sig Discontinue Reason Start Date End Da te irbesartan-hydrochlorothiazide (AVALIDE) 150-12.5 mg per tablet 07/16/2021 3 documented as of this encounter Care Teams Dean Of Women Relationship Specialty Start Date End Date Cassius London MD [address] [address] PCP - General 02/06/17 documented as of this encounter
--- OUTSIDE RECORDS SUMMARY | 2024-10-26 01:16 | XMS_ITS | Encounter Summary ---
Author Organization [facility] Address [address] [place] [address] Care Team Providers Care Icd 9 Coder Name Role Phone Cassius London MD Primary Care Provider + Reason for Referral * Diagnostic Imaging (Routine) - Closed Specialty Diagnoses / Procedures Referred By Contac t Referred To Contact Diagnoses Congestive heart failure, unspecified HF chronicity, unspecified heart failure type (HCC) Procedures NM MPI SPECT (Rest and/or Stress) Multiple Studies Joleen Neal NP Phone: tel: fax: [address] [phone] Referral ID Status Reason Start Date Expiration Date Visits Re quested Visits Authorized [id number] Closed 02/26/2023 03/27/2024 1 1 Reason for Visit * Diagnostic Imaging (Routine) - Closed Specialty Diagnoses / Procedures Referred By Contac t Referred To Contact Diagnoses Congestive heart failure, unspecified HF chronicity, unspecified heart failure type (HCC) Procedures NM MPI SPECT (Rest and/or Stress) Multiple Studies Joleen Neal NP Phone: tel: fax: [address] [phone] Referral ID Status Reason Start Date Expiration Date Visits Re quested Visits Authorized [id number] Closed 02/26/2023 03/27/2024 1 1 Encounter Details Date Type Department Care Team (Latest Contact Info) Description 04/14/2023 6:40 AM CDT - 04/14/2023 11:59 PM CDT Hospital Encounter [facility] [address] [place] [id number] Congestive heart failure, unspecified HF chronicity, unspecified heart failure type (HCC) Discharge Disposition: Discharge to home or [...] attend chur ch or yazdanism services? Never 01/12/2023 Do you belong to any clubs o r organizations such as jain groups, unions, fraternal or athletic groups, or [...] in a skilled nursing (including now)? 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 Gender Identity Not on file Sexual [...] (10 mg total) by mouth nightly 09/09/2021 [id number] -vit K-lycop (ONE-A-DAY MEN'S MULTIVITAMIN) 400-20-300 mcg [...] Procedure Name Priority Date/Time Associated Diagnosis Comments NM MPI SPECT (REST AND/OR STRESS) MULTIPLE STUDIES Schedule Routine, Read Routine (OP Routine) 04/14/2023 8:49 AM CDT Congestive heart failure, unspecified HF chronicity, unspecified heart failure type (HCC) STRESS TEST FOR DUAL READ Schedule Routine, Read Routine (OP Routine) 04/14/2023 8:49 AM CDT Congestive heart failure, unspecified HF chronicity, unspecified heart failure type (HCC) documented in this encounter Results * Stress Test for Myocardial Perfusion (04/14/2023 8:49 AM CDT) Anatomical Region Laterality Modality Nuclear Medicine 04/14/2023 7:00 AM CDT Narrative 04/14/2023 11:26 AM CDT [address] [place] [address] [facility] [employer] Report Patient Name: CANDELARIO JUANVahe Nair : 1940 Study Date: 04/14/2023 7:00:00 AM [...] Procedure Note Britt Mares MD - 04/14/[address] [place] [address] [employer] Report Patient Name: CLARITA JUAN LPatient ID: [id number] : [id number] Date: 04/14/2023 7:00:00 AM Gender: MAccession #: [id number] Tech: Ref.Provider: JOLEEN NEAL Height(Cm): BSA: Weight(Kg): [...] AM CDT Narrative 04/14/2023 12:19 PM CDT [address] [place] [address] [employer] Report Patient Name: CLARITA JUAN L [...] Procedure Note Britt Mares MD - 04/14/[address] [address] [employer] [facility] Report Patient Name: CLARITA JUAN LPatient ID: [id number] : [id number] Date: 04/14/2023 7:14:27 AM Gender: MAccession #: [id number] Tech: Ref.Provider: JOLEEN NEAL Height(Cm): BSA: Weight(Kg): [...] Mares MD 2023-04-14 12:19:18 CDT CC: CC: us Joleen Neal NP IMG NM PROCEDURES Final Resu lt documented in this encounter Visit Diagnoses Diagnosis Congestive heart failure, unspecified HF chronicity, unspecified heart failure type (HCC) documented in this encounter Administered Medications Inactive Administered Medications - up to 3 most recent administrations Medication Order MAR Action Action Date Dose Rate Site regadenoson (LEXISCAN) 0.4 mg/5 mL injection 0.4 mg 0.4 mg, intravenous, Once, On Thu04/14/23 at 0730, For 1 dose, Intra-Procedure (CV), Administer IV push over 10 seconds., Indications: Myocardial Perfusion Imaging AdjunctIndications:Myocard ial Perfusion Imaging Adjunct Given 04/14/2023 7:47 AM CDT 0.4 mg tc-99m tetrofosmin (MYOVIEW) injection 10.5 millicurie 10.5 millicurie, intravenous, Once in imaging, radiopharmaceutical, Starting on Thu04/14/23 at 0712, For 1 dose, Indications: Diagnostic RadiographyIndications:Guerita gnostic Radiography Given 04/14/2023 7:12 AM CDT 10.5 millicuries documented in this encounter Care Teams Icd 9 Coder Relationship Specialty Start Date End Date Cassius London MD [address] [place] [address] PCP - General 02/06/17 documented as of this encounter
--- OUTSIDE RECORDS SUMMARY | 2024-10-26 01:16 | XMS_ITS | Encounter Summary ---
Author Organization [facility] Address [address] [id number] Care Team Providers Care Cycle Liaison Name Role Phone Cassius London MD Primary Care Provider + Reason for Referral * MRI/CAT/PET Scan (Routine) - Closed Specialty Diagnoses / Procedures Referred By Italia valles Referred To Contact Radiology Diagnoses Solitary pulmonary nodule Procedures [place] [address] [place] [address] Phone: tel: fax: [address] [phone] Referral ID Status Reason Start Date Expiration Date Visits Re quested Visits Authorized [id number] Closed 05/18/2023 06/17/2023 1 1 Reason for Visit * MRI/CAT/PET Scan (Routine) - Closed Specialty Diagnoses / Procedures Referred By Contswapna valles Referred To Contact Radiology Diagnoses Solitary pulmonary nodule Procedures [place] [address] [address] Phone: tel: fax: [address] [phone] Referral ID Status Reason Start Date Expiration Date Visits Re quested Visits Authorized [id number] Closed 05/18/2023 06/17/2023 1 1 Encounter Details Date Type Department Care Team (Latest Contact Info) Description 05/18/2023 8:46 AM CDT - 05/18/2023 11:59 PM CDT Hospital Encounter [facility] [address] [place] [address] Solitary pulmonary nodule Discharge Disposition: Discharge to [...] often do you attend chur ch or advent services? 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 Gender Identity Not on file Sexual Orientation [...] (10 mg total) by mouth nightly 09/09/2021 [id number]-[id number] -vit K-lycop (ONE-A-DAY MEN'S MULTIVITAMIN) 400-20-300 mcg tablet Take one by mouth one time per day 0 0 08/23/2008 Trelecatherine Ellipta 200-62.5-25 mcg inhaler 05/06/2023 amlodipine-atorvas tatin (CADUET) 5-10 mg per tablet [...] CONTRAST Schedule Routine, Read Routine (OP Routine) 05/18/2023 9:03 AM CDT Solitary pulmonary nodule documented in this encounter Results * CT Chest WO Contrast (05/18/2023 9:03 AM CDT) Anatomical Region Laterality Modality Body N/A Computed Tomogra phy 05/20/2023 8:12 AM CDT Narrative 05/20/2023 8:53 AM CDT EXAM DESCRIPTION: ?? CT CHEST WO CONTRAST REASON FOR STUDY: ?? R91.1 ?? Follow up chest ct for 01/11/23, COPD, former smoker ? TECHNIQUE: CT scan of the chest performed without intravenous contrast using helical scanning technique. Reconstructed coronal and sagittal MPR images reviewed. ??All images stored on PACS. ??Automated exposure control was used as a dose optimization technique for this examination. COMPARISON: ?? January 11, 2023 and June 28, 2020 REFERENCE: Per ACR white paper recommendations, unless otherwise specified no follow-up imaging is recommended for incidental renal and adrenal lesions per consensus recommendations based on imaging criteria. Further lab evaluation could be pursued based on clinical findings. FINDINGS: The sensitivity for detection of solid visceral lesions is diminished without the use of intravenous contrast. LUNGS: ?? Moderate emphysematous changes. ??Faint bilateral reticular opacities, especially in the peripheral lung zones, are thought to be chronic and fibrotic in origin. ??Bilateral apical opacities are unchanged and thought to represent scarring. ??Unchanged 11 x 6 mm pleural based posterolateral left upper lobe nodule (transverse image 29) and 10 x 6 mm posteromedial right upper lobe nodule (transverse image 31) are unchanged. ??There is evidence of old granulomatous disease. ??No definite new nodules. ??Bilateral multifocal poorly defined ground-glass opacities seen on the prior study have resolved. ?? Minimal lingular opacity remains, probably scarring. ??No new infiltrates. PLEURA: ?? No effusion. No pneumothorax. MEDIASTINUM/KRISTYN: ?? Calcified lymph nodes in keeping with old granulomatous disease. ??A few small scattered noncalcified mediastinal lymph nodes are unchanged. HEART: ?? Heart size is normal with no pericardial effusion. CORONARY ARTERY CALCIFICATION: ??Fairly extensive three-vessel coronary artery calcifications. VASCULATURE: ?? Moderate atherosclerotic changes but no thoracic aortic aneurysm. AXILLA: ?? No adenopathy. CHEST WALL: ?? Bilateral gynecomastia, unchanged. ??Otherwise, no masses. ??No subcutaneous air. HARDWARE/LINES/TUBES: ?? None. UPPER ABDOMEN: ?? Incompletely visualized indeterminate anterior left upper renal mass. ??Malignancy is not excluded. ??Renal mass protocol MRI is recommended. ?? Moderately large colonic fecal burden. MUSCULOSKELETAL: ?? Moderate multilevel thoracic spondylosis. ??No acute abnormality. OTHER: ?? No other significant abnormality. IMPRESSION: Moderate emphysematous changes in the lungs with faint bilateral reticular opacities, especially in the peripheral lung zones, are thought to be chronic and fibrotic in origin. Bilateral apical opacities are unchanged and thought to represent scarring. Unchanged 11 x 6 mm pleural based posterolateral left upper lobe nodule and 10 x 6 mm posteromedial right upper lobe nodule are unchanged. ??No definite new pulmonary nodules. ??Given long-term stability, no follow-up is required in this regard. Bilateral multifocal poorly defined ground-glass opacities seen on the prior study have resolved. Minimal lingular opacity remains, probably scarring. No new infiltrates or effusions. No adenopathy. Fairly extensive three-vessel coronary artery calcifications. Bilateral gynecomastia, unchanged. Incompletely visualized indeterminate anterior left upper renal mass. Malignancy is not excluded. Renal mass protocol MRI is recommended. THIS IS AN ELECTRONICALLY VERIFIED FINAL REPORT 05/20/2023 8:53 AM - Electronically signed by ??Yordan Ansari M.D. RB: MCKENZIE D: ??05/20/2023 8:53 AM T: ??05/20/2023 8:53 AM Report ID: [id number] Reading Location: ??[id number] Procedure Note Yordan Ansari MD - 05/20/2023 EXAM DESCRIPTION: CT CHEST WO CONTRAST REASON FOR STUDY: R91.[address] for 01/11/23, COPD, former smoker TECHNIQUE: CT scan of the chest performed without intravenous contrastusing helical scanning technique. Reconstructed coronal and sagittal MPR images reviewed. All images stored on PACS. Automated exposure control was usedas a dose optimization technique for this examination. COMPARISON: January 11, 2023 and June 28, 2020 REFERENCE: Per ACR white paper recommendations, unless otherwise specifiedno follow-up imaging is recommended for incidental renal and adrenal lesionsper consensus recommendations based on imaging criteria. Further labevaluation could be pursued based on clinical findings. FINDINGS: The sensitivity for detection of solid visceral lesions is diminishedwithout the use of intravenous contrast. LUNGS: Moderate emphysematous changes. Faint bilateral reticularopacities, especially in the peripheral lung zones, are thought to be chronic and fibrotic in origin. Bilateral apical opacities are unchanged and thoughtto represent scarring. Unchanged 11 x 6 mm pleural based posterolateral left upper lobe nodule (transverse image 29) and 10 x 6 mm posteromedial right upper lobe nodule (transverse image 31) are unchanged. There is evidenceof old granulomatous disease. No definite new nodules. Bilateral multifocal poorly defined ground-glass opacities seen on the prior study haveresolved. Minimal lingular opacity remains, probably scarring. No new infiltrates. PLEURA: No effusion. No pneumothorax. MEDIASTINUM/KRISTYN: Calcified lymph nodes in keeping with oldgranulomatous disease. A few small scattered noncalcified mediastinal lymph nodes are unchanged. HEART: Heart size is normal with no pericardial effusion. CORONARY ARTERY CALCIFICATION: Fairly extensive three-vessel coronaryartery calcifications. VASCULATURE: Moderate atherosclerotic changes but no thoracic aortic aneurysm. AXILLA: No adenopathy. CHEST WALL: Bilateral gynecomastia, unchanged. Otherwise, no masses.No subcutaneous air. HARDWARE/LINES/TUBES: None. UPPER ABDOMEN: Incompletely visualized indeterminate anterior left upper renal mass. Malignancy is not excluded. Renal mass protocol MRI is recommended. Moderately large colonic fecal burden. MUSCULOSKELETAL: Moderate multilevel thoracic spondylosis. No acute abnormality. OTHER: No other significant abnormality. IMPRESSION: Moderate emphysematous changes in the lungs with faint bilateralreticular opacities, especially in the peripheral lung zones, are thought to bechronic and fibrotic in origin. Bilateral apical opacities are unchanged and thought to representscarring. Unchanged 11 x 6 mm pleural based posterolateral left upper lobe noduleand 10 x 6 mm posteromedial right upper lobe nodule are unchanged. Nodefinite new pulmonary nodules. Given long-term stability, no follow-up isrequired in this regard. Bilateral multifocal poorly defined ground-glass opacities seen on theprior study have resolved. Minimal lingular opacity remains, probablyscarring. No new infiltrates or effusions. No adenopathy. Fairly extensive three-vessel coronary artery calcifications. Bilateral gynecomastia, unchanged. Incompletely visualized indeterminate anterior left upper renal mass. Malignancy is not excluded. Renal mass protocol MRI is recommended. THIS IS AN ELECTRONICALLY VERIFIED FINAL REPORT 05/20/2023 8:53 AM - Electronically signed by Yordan Ansari M.D. RB: MCKENZIE Report ID: [id number] Reading Location: [id number] Andrey Uribe MD IMG CT PROCEDURES Marah l Result documented in this encounter Visit Diagnoses Diagnosis Solitary pulmonary nodule documented in this encounter Care Teams Cycle Liaison Relationship Specialty Start Date End Date Cassius London MD [address] [place] [address] PCP - General 02/06/17 documented as of this encounter
--- OUTSIDE RECORDS SUMMARY | 2024-10-26 01:16 | XMS_ITS | Encounter Summary ---
Author Organization [facility] Address [address] [place] [address] Care Team Providers Care Patient Access Manager Name Role Phone Cassius London MD Primary Care Provider + Reason for Visit * Reason Comments Atrial Fibrillation Encounter Details Date Type Department Care Team ([facility] Contact Info) Description 05/28/2023 9:15 AM CDT Office Visit [place] [facility] Operations Leader at [address] [place] [address] Bg Miller NP [address] [place] [address] [address] [place] [address] Paroxysmal A-fib (CMS/HCC) (HCC) (Primary [...] week 01/12/2023 How often do you attend [facility] or yarsanism services? 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 Gender Identity Not on file Sexual Orientation Not on file documented as of this encounter Last Filed Vital Signs Vital Sign Reading Time Taken Comments Blood Pressure 146/82 05/28/2023 9:10 AM CDT Pulse 69 05/28/2023 9:10 AM CDT Temperature - - Respiratory Rate 18 05/28/2023 9:10 AM CDT Oxygen Saturation - - Inhaled Oxygen Concentration - - Weight 86.6 kg (191 lb) 05/28/2023 9:10 AM CDT Height 172.7 cm (5' 8 ) 05/28/2023 9:10 AM CDT Body Mass Index 29.04 05/28/2023 9:10 AM CDT documented in this encounter Ordered Prescriptions Prescription Sig Dispense Quantity Refills Last Filled Start Date End Date apixaban (ELIQUIS) 5 mg tabletIndications: atrial fibrillation Take 1 tablet (5 mg total) by mouth every 12 (twelve) hours 180 tablet 3 05/28/2023 01/05/2024 documented in this encounter Progress Notes * Bg Miller NP - 05/28/2023 9:15 AM CDT Cardiology note Reason for Office Visit: F/u [...] and benefits. A prescription was called and [place] to his pharmacy, but unsure if he will take it. Weight down 3 lbs Past Medical History: Diagnosis Date Asbestosis [...] Types: Cigarettes Quit date: 2011 Years since quittin.5 Smokeless tobacco: Never Substance and Sexual Activity [...] tablet Take 10 mg by mouth nightly peotxgbs-kym-pioqx-vit K-lycop (ONE-A-DAY MEN'S MULTIVITAMIN) 400-20-300 mcg tablet [...] for this visit. Vital Signs: Vitals BP 146/82 (BP Location: Right arm, Patient Position: Sitting) Pulse 69 Resp 18 Ht 172.7 cm (5' 8 ) Wt 86.6 kg (191 lb) BMI 29.04 kg/m?? Vitals: 07/20/23 0910 BP: 146/82 Pulse: 69 Resp: 18 Wt Readings from Last 3 Encounters: 05/28/23 86.6 kg (191 lb) 02/26/23 88 kg (194 lb) 01/15/23 90.5 kg (199 lb 8.3 oz) Physical Exam: Physical Exam Constitutional: Appearance: Normal [...] LABALBU Lab Results Component Value Date CHOL 178 03/04/2023 TRIG 184 (H) 03/04/2023 HDL 44 03/04/2023 LDL 72 01/21/2017 Lab Results Component Value [...] Rate: 133 bpm RR Interval: 449 msec WA Interval: 0 msec QRS Duration: 99 msec [...] Hypertension COPD Plan Continue Eliquis for anticoagulation Reviewed stress day and monitor Monitor BP/heart rate closely The patient is asked to make an attempt to improve diet and exercise patterns to aid in medical management of this problem cont avalide 300-12.5mg- has not taken blood pressure medication this morning. -Recommend keeping BP log and letting us know if blood pressure is well controlled at home. If not would adjust medications Monitor weights daily and for signs of worsening heart failure Follow-up 3 months or sooner pending testing Diagnoses and all orders for this visit: Paroxysmal A-fib (CMS/HCC) (HCC) (Primary) Mixed hyperlipidemia - Lipid panel; Future Congestive heart failure, unspecified HF chronicity, unspecified heart failure type (HCC) Stage 3a chronic kidney disease (HCC) Other orders - apixaban (ELIQUIS) 5 mg tablet; Take 1 tablet (5 mg total) by mouth every 12 (twelve) hours Bg Miller NP 05/28/2023 9:38 AM Cc:Cassius London MD documented in this encounter Plan of Treatment Not on file documented as of this encounter Results * (ABNORMAL) Lipid panel (06/05/2023 12:37 PM CDT) [facility] Cholesterol 137 30 - 199 mg/dL NNEKA PICHARDO ([place]) Comment: [...] Data was last revised on 2018. Triglycerides 97 <=149 mg/dL NNEKA PICHARDO ([place]) Comment: Interpretive [...] Data was last revised on 2018. HDL 37(L) >=40 mg/dL NNEKA García ([place]) Comment: Interpretive Data Ages < or [...] was last revised on 2018. LDL, calculated 81 <=129 mg/dL NNEKA PICHARDO ([place]) Comment: Interpretive Data Ages < or = [...] was last revised on 2018. Non-HDL Cholesterol 100 mg/dL NNEKA PICHARDO ([place]) Comment: Interpretive Data Ages < or = [...] last revised on 2018. Chol/HDL ratio 4 XAVIER PICHARDO ([place]) Blood 06/05/2023 12:3 7 PM CDT 06/05/2023 1:25 PM CDT us Bg Hector Miller NP LAB BLOOD ORDERABLES Final R esult NNEKA PICHARDO ([place]) [address] [facility] [place] [address] documented in this encounter Visit Diagnoses Diagnosis Paroxysmal A-fib (CMS/HCC) (HCC)- Primary Mixed hyperlipidemia Congestive heart failure, unspecified HF chronicity, unspecified heart failure type (HCC) Stage 3a chronic kidney disease (HCC) documented in this encounter Discontinued Medications Medication Sig Discontinue Reason Start Date End Da te apixaban (ELIQUIS) 5 mg tabletIndications:atrial fibrillation Take 1 tablet (5 mg total) by mouth every 12 (twelve) hours Reorder 01/15/2023 05/28/2023 documented as of this encounter Care Teams Patient Access Manager Relationship Specialty Start Date End Date Cassius London MD [address] [place] [address] PCP - General 02/06/17 documented as of this encounter
--- OUTSIDE RECORDS SUMMARY | 2024-10-26 01:16 | XMS_ITS | Encounter Summary ---
Author Organization [facility] Address [address] [place] [address] Care Team Providers Care Integrated Circuit Ic Layout Designer Name Role Phone Cassius London MD Primary Care Provider + Encounter Details Date Type Department Care Team (Late st Contact Info) Description 02/19/2023 Telephone [place] [facility] at [address] [place] [address] Bg Miller NP [address] [place] [address] [address] [place] [address] Social History Tobacco Use Types [...] often do you attend chur ch or jew services? 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 Per Geovanna I, yes, insurance referrals are required to a specialist. Call reference# [id number]. documented in this encounter Plan of Treatment Not on file documented as of this encounter Visit Diagnoses Not on filedocumented in this encounter Care Teams Integrated Circuit Ic Layout Designer Relationship Specialty Start Date End Date Cassius London MD [address] [address] PCP - General 02/06/17 documented as of this encounter
--- OUTSIDE RECORDS SUMMARY | 2024-10-26 01:16 | XMS_ITS | Encounter Summary ---
Author Organization [facility] Healthcare Address [address] [place] [address] Care Team Providers Care Sales Administration Manager Name Role Phone Cassius London MD Primary Care Provider + Encounter Details Date Type Department Care Team (Late st Contact Info) Description 06/05/2023 12:25 PM CDT Lab [address] [address] Mixed hyperlipidemia Social History Tobacco Use Types Packs/Day Years [...] How often do you attend chur or baptist services? Never 01/12/2023 Do you belong to any clubs o r organizations such as pentecostalism groups, unions, fraternal or athletic groups, or [...] in a long term (including now)? 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 Triglycerides 97 <=149 mg/dL NNEKA AHUMADA) Comment: Interpretive Data Ages < or = [...] on 2018. HDL 37(L) >=40 mg/dL NNEKA AHUMADA) Comment: Interpretive Data Ages < or = [...] LDL, calculated 81 <=129 mg/dL NNEKA PICHARDO (ALBERTO) Comment: Interpretive Data [...] 2018. Non-HDL Cholesterol 100 mg/dL NNEKA PICHARDO ([place]BERTO) Comment: Interpretive Data [...] 1:25 PM CDT us Bg Hector Miller DENTAL CREAM MAKER LAB BLOOD ORDERABLES Final R esult NNEKA PICHARDO ([place]) 1 [facility] Department [place] [address] documented in this encounter Visit Diagnoses Diagnosis Mixed hyperlipidemia documented in this encounter Care Teams Sales Administration Manager Relationship Specialty Start Date End Date Cassius London MD [address] [facility] [place] [address] PCP - General 02/06/17 documented as of this encounter
--- OUTSIDE RECORDS SUMMARY | 2024-10-26 01:16 | XMS_ITS | Encounter Summary ---
Author Organization 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 Gender Identity Not on file Sexual Orientation Not on file documented as of this encounter Plan of Treatment Not on file documented as of this encounter Procedures Procedure Name Priority Date/Time Associated Diagnosis Comments EGFR Routine 03/04/2023 9:20 AM CDT Congestive heart failure, unspecified HF chronicity, unspecified heart failure type (HCC) THYROID FUNCTION CASCADE Routine 03/04/2023 9:20 AM CDT Congestive heart failure, unspecified HF chronicity, unspecified heart failure type (HCC) IRON PROFILE W/ IBC Routine 03/04/2023 9 :20 AM CDT Congestive heart failure, unspecified HF chronicity, unspecified heart failure type (HCC) LIPID PANEL Routine 03/04/2023 9:20 AM CDT Congestive heart failure, unspecified HF chronicity, unspecified heart failure type (HCC) BASIC METABOLIC PANEL Routine 03/04/2023 9:20 AM CDT Congestive heart failure, unspecified HF chronicity, unspecified heart failure type (HCC) documented in this encounter Results * eGFR (03/04/2023 9:20 AM CDT) [facility] eGFR 51 mL/min/1. 73 m2 NNEKA PICHARDO ([place]) Comment: Interpretive Data Reference Interval Normal ?>/= [...] interpretive data was last reviewed 2021. Blood 03/04/2023 9:20 AM CDT 03/04/2023 11:02 AM CDT Bg Miller BATTERY SERVICE TECHNICIAN LAB BLOOD ORDERABLES Final R esult NNEKA PICHARDO ([place]) 1 [facility] [place] [address] * TSH reflex to free T4 (03/04/2023 9:20 AM CDT) TSH 1.56 0.30 - 4.20 mcIUnit/mL NNEKA PICHARDO ([place]) Blood 03/04/2023 9:20 AM CDT 03/04/2023 11:02 AM CDT Bg Miller BATTERY SERVICE TECHNICIAN LAB BLOOD ORDERABLES Final R esult Performing Organization Address City/[facility]/ZIP Co de Phone Number NNEKA PICHARDO ([place]) 1 [facility] [place] [address] * Iron profile w/ IBC (03/04/2023 9:20 AM CDT) Iron 86 50 - 150 mcg/dL NNEKA PICHARDO ([place]) TIBC 256 250 - 400 mcg/dL N[facility]KA [facility] ([place]) Transferrin saturation 34 20 - 50 % NNEKA PICHARDO ([place]) Blood 03/04/2023 9:20 AM CDT 03/04/2023 11:02 AM CDT Bg Miller BATTERY SERVICE TECHNICIAN LAB BLOOD ORDERABLES Final R esult NNEKA PICHARDO ([place]) 1 [facility] [place] [address] * (ABNORMAL) Lipid panel (03/04/2023 9:20 AM CDT) Cholesterol 178 30 - 199 mg/dL NNEKA [facility] ([place]) Comment: Interpretive Data [...] on 2018. Triglycerides 184(H) <=149 mg/dL NNEKA [facility] ([place]) Comment: Interpretive Data [...] on 2018. LDL, calculated 97 <=129 mg/dL NNEKA PICHARDO ([place]) Comment: Interpretive [...] Chol/HDL ratio 4 XAVIER PICHARDO ([place]) Blood 03/04/2023 9:20 AM CDT 03/04/2023 11:02 AM CDT us Bg Miller BATTERY SERVICE TECHNICIAN LAB BLOOD ORDERABLES Final R esult NNEKA PICHARDO ([place]) 1 [facility] [place] [address] * (ABNORMAL) Basic metabolic panel (03/04/2023 9:20 [...] (ALBERTO) Glucose 119 70 - 199 mg/dL [facility] ([place]ERTO) Comment: Interpretive Data Fasting glucose [...] 2022. Calcium 8.9 8.5 - 10.3 mg/dL [facility] (AL[place]ERTO) Blood 03/04/2023 9:20 AM CDT 03/04/2023 11:02 AM CDT us Bg Miller BATTERY SERVICE TECHNICIAN LAB BLOOD ORDERABLES Final R esult NNEKA PICHARDO ([place]) 1 [facility] Department [place] [address] documented in this encounter Visit Diagnoses Diagnosis Congestive heart failure, unspecified HF chronicity, unspecified heart failure type (HCC) documented in this encounter Care Teams Criminal Justice Lawyer Relationship Specialty Start Date End Date Cassius London MD [address] [facility] [place] [address] PCP - General 02/06/17 documented as of this encounter
--- OUTSIDE RECORDS SUMMARY | 2024-10-26 01:16 | XMS_ITS | Encounter Summary ---
Author Organization [facility] Address [address] [facility] [address] [place] [address] Care Team Providers Care Wool Sorter Name Role Phone Cassius London MD Primary Care Provider + Reason for Visit * Cardiology (Routine) - Closed Specialty Diagnoses / Procedures Referred By Contac t Referred To Contact Diagnoses Paroxysmal A-fib ([facility]) ([facility]) Procedures Event Monitor, 30 Day Event Bg Miller NP Phone: tel: fax: [facility] Referral ID Status Reason Start Date Expiration Date Visits Re quested Visits Authorized [id number] Closed 03/04/2023 04/21/2024 1 1 Encounter Details Date Type Department Care Team (Latest Contact Info) Description 03/04/2023 9:15 AM CDT Ancillary Procedure [place] Field Seismologist [address] [address] Paroxysmal A-fib ([facility]) ([facility]) Social History Tobacco Use Types Packs/Day Years [...] often do you attend chur ch or congregational services? Never 01/12/2023 Do you belong to any clubs o r organizations such as adventist groups, unions, fraternal or athletic groups, or [...] place to sleep or slept in a mcfp (including now)? No 01/12/2023 Sex and Gender Information Value Date Recorded Sex Assigned at Not on file Legal Sex Male 1:17 PM CPC Gender Identity Not on file Sexual Orientation Not on file documented as of this encounter Plan of Treatment Not on file documented as of this encounter Procedures Procedure Name Priority Date/Time Associated Diagnosis Comments EVENT MONITOR Routine 03/17/2023 10:00 AM CDT Paroxysmal A-fib (CMS/HCC) (HCC) documented in this encounter Results * Event Monitor, 30 Day Event (03/17/2023 10:00 AM CDT) Anatomical Region Laterality Modality Other Narrative 03/24/2023 5:00 PM CDT AMBULATORY CARDIAC EVENT MONITOR REPORT Patient Name: Xavier Clarke Date of : 1940 ?? Requesting Physician: Dr.Lalithkumar Parish Date of interpretation: 03/23/23 Type of monitor : 14 Day Zoll Event Reorder Date of the study/Enrollment period: 03/04/2023 to 03/17/2023 Indication: I48.0- Paroxysmal Atrial Fibrillation Quality of the study: good ??time monitored 7 days, 12 hours, 54 minutes Interpretation: Conclusions: Sinus rhythm with heart rates 52-119 beats per minute No atrial fibrillation, no pauses No triggered events Voice recognition software was used to complete this document, therefore, copier field service technician variances may occur. us Bg Hector Miller STRATEGIC DEBRIEFING SPECIALIST CV CARDIAC SERVICES PROCEDUR ES Final Result documented in this encounter Visit Diagnoses Diagnosis Paroxysmal A-fib (CMS/HCC) (HCC) documented in this encounter Care Teams Wool Sorter Relationship Specialty Start Date End Date Cassius London MD [address] [facility] [place] [address] PCP - General 02/06/17 documented as of this encounter
--- OUTSIDE RECORDS SUMMARY | 2024-10-26 01:16 | XMS_ITS | Encounter Summary ---
Author Organization [facility] Address [address] [place] [address] Care Team Providers Care Orthotic Assistant Name Role Phone Cassius London MD Primary Care Provider + Reason for Referral * MRI/CAT/PET Scan (Routine) - Closed Specialty Diagnoses / Procedures Referred By Contac t Referred To Contact Radiology Diagnoses Spinal stenosis of lumbar region with neurogenic claudication Procedures MRI Lumbar Spine WO Contrast Cassius London MD [address] [place] [address] [place] [address] Phone: tel: fax: [address] [phone] Referral ID Status Reason Start Date Expiration Date Visits Re quested Visits Authorized [id number] Closed 05/22/2023 06/21/2023 1 1 Reason for Visit * MRI/CAT/PET Scan (Routine) - Closed Specialty Diagnoses / Procedures Referred By Contac t Referred To Contact Radiology Diagnoses Spinal stenosis of lumbar region with neurogenic claudication Procedures MRI Lumbar Spine WO Contrast Cassius London MD [address] [place] [address] [place] [address] Phone: tel: fax: [address] [phone] Referral ID Status Reason Start Date Expiration Date Visits Re quested Visits Authorized [id number] Closed 05/22/2023 06/21/2023 1 1 Encounter Details Date Type Department Care Team (Latest Contact Info) Description 05/22/2023 4:02 PM CDT - 05/22/2023 11:59 PM CDT Hospital Encounter [facility] [address] [place] [address] Spinal stenosis of lumbar region with neurogenic claudication Discharge Disposition: [...] often do you attend chur ch or yazidi services? Never 01/12/2023 Do you belong to any clubs o r organizations such as voodoo groups, unions, fraternal or athletic groups, or [...] slept in a correction (including now)? 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 Gender Identity Not on file Sexual Orientation [...] (10 mg total) by mouth nightly 09/09/2021 [id number] -vit K-lycop (ONE-A-DAY MEN'S MULTIVITAMIN) 400-20-300 mcg tablet Take one by mouth one time per day 0 0 08/23/2008 [place] Ellipta 200-62.5-25 mcg inhaler 05/06/2023 amlodipine-atorvas tatin [...] CONTRAST Schedule Routine, Read Routine (OP Routine) 05/22/2023 4:39 PM CDT Spinal stenosis of lumbar region with neurogenic claudication documented in this encounter Results * MRI Lumbar Spine WO Contrast (05/22/2023 4:39 PM CDT) Anatomical Region Laterality Modality Spine N/A Magnetic Resonan ce 05/24/2023 9:48 AM CDT Narrative 05/24/2023 9:59 AM CDT EXAM DESCRIPTION: ?? MRI LUMBAR SPINE WO CONTRAST REASON FOR STUDY: ?? SPINAL STENOSIS, LUMBAR REGION W/NEUROGENIC CLAUDICATION ?? Dx: Spinal stenosis of lumbar region with neurogenic claudication ?? 6 months bilateral leg weakness ?? 3 previous surgery's ? TECHNIQUE: ??Sagittal and Axial imaging includes T1, T2, STIR sequences. ? COMPARISON: ?? Comparison CT abdomen pelvis sagittal bone images 2019. FINDINGS: SEGMENTATION: ?? No transitional anatomy. The lowest well-developed disc space is labeled L5-S1. ALIGNMENT: ?? Normal. VERTEBRAE: ?? Vertebral body height is maintained. ??Posterior laminectomy L3-4, L4-5 and L5-S1. DISC HEIGHT: ?? Disc space narrowing L4-5 and L5-S1. ??Mild disc degeneration at other levels. ??See detail below. HARDWARE: ?? None in the spine. CORD/CAUDA: ?? Normal in size and signal intensity. Conus at the appropriate level. LOWER THORACIC: ?? Incompletely imaged. No stenosis seen. INDIVIDUAL DISC LEVELS: L1-2: ?? Minimal bulge. ??No significant central canal stenosis or foraminal stenosis. L2-3: ?? Mild diffuse annular bulge with hypertrophic endplate spurring and thickening of posterior ligaments. ??There is mild left foraminal narrowing. ?? No significant central canal stenosis. L3-4: ?? Previous right hemilaminotomy. ??Bulky posterior endplate osteophytes and chronic disc changes. ??There is moderate to severe right foraminal narrowing and severe right subarticular narrowing. No significant left foraminal stenosis. ??No central canal stenosis. L4-5: ?? Posterior laminectomy. ??Hypertrophic endplate spurs laterally. ??There is severe right foraminal narrowing. ??No central canal stenosis or left foraminal narrowing. L5-S1: ?? Previous right hemilaminotomy. ??Possible defect in the left lamina as well. ??Broad-based posterior disc osteophytic changes contact left S1 nerve root sleeve. ??No central canal stenosis. SACRUM: ?? Visualized upper sacrum intact. VISUALIZED UPPER ABDOMEN: ?? Stable ectasia of the abdominal aorta.. OTHER: ?? No other significant findings. IMPRESSION: Postoperative changes of laminectomy L3-4, L4-5 and L5-S1. Asymmetric disc degeneration and endplate spurring at these levels result in right foraminal narrowing at L3-4 and L4-5 and left foraminal narrowing at L5-S1. No significant central canal stenosis at any level. ??Definite interval change when compared to CT abdomen pelvis from 10/12/2020 allowing for difference in modality. Stable ectasia of the abdominal aorta. THIS IS AN ELECTRONICALLY VERIFIED FINAL REPORT 05/24/2023 9:59 AM - Electronically signed by ??Ofelia Bañuelos M.D. LC: AMADO D: ??05/24/2023 9:59 AM T: ??05/24/2023 9:59 AM Report ID: [id number] Reading Location: ??[id number] Procedure Note Kala Bañuelos MD - 05/24/2023 EXAM DESCRIPTION: MRI LUMBAR SPINE WO CONTRAST REASON FOR STUDY: SPINAL STENOSIS, LUMBAR REGION W/NEUROGENICCLAUDICATION Dx: Spinal stenosis of lumbar region with neurogenic claudication 6months bilateral leg weakness 3 previous surgery's TECHNIQUE: Sagittal and Axial imaging includes T1, T2, STIR sequences. COMPARISON: Comparison CT abdomen pelvis sagittal bone images 2019. FINDINGS: SEGMENTATION: No transitional anatomy. The lowest well-developed discspace is labeled L5-S1. ALIGNMENT: Normal. VERTEBRAE: Vertebral body height is maintained. Posterior laminectomyL3-4, L4-5 and L5-S1. DISC HEIGHT: Disc space narrowing L4-5 and L5-S1. Mild discdegeneration at other levels. See detail below. HARDWARE: None in the spine. CORD/CAUDA: Normal in size and signal intensity. Conus at theappropriate level. LOWER THORACIC: Incompletely imaged. No stenosis seen. INDIVIDUAL DISC LEVELS: L1-2: Minimal bulge. No significant central canal stenosis or foraminal stenosis. L2-3: Mild diffuse annular bulge with hypertrophic endplate spurring and thickening of posterior ligaments. There is mild left foraminalnarrowing. No significant central canal stenosis. L3-4: Previous right hemilaminotomy. Bulky posterior endplateosteophytes and chronic disc changes. There is moderate to severe right foraminal narrowing and severe right subarticular narrowing. No significant left foraminal stenosis. No central canal stenosis. L4-5: Posterior laminectomy. Hypertrophic endplate spurs laterally.There is severe right foraminal narrowing. No central canal stenosis or left foraminal narrowing. L5-S1: Previous right hemilaminotomy. Possible defect in the leftlamina as well. Broad-based posterior disc osteophytic changes contact left Y1whclu root sleeve. No central canal stenosis. SACRUM: Visualized upper sacrum intact. VISUALIZED UPPER ABDOMEN: Stable ectasia of the abdominal aorta.. OTHER: No other significant findings. IMPRESSION: Postoperative changes of laminectomy L3-4, L4-5 and L5-S1. Asymmetricdisc degeneration and endplate spurring at these levels result in rightforaminal narrowing at L3-4 and L4-5 and left foraminal narrowing at L5-S1. No significant central canal stenosis at any level. Definite interval change when compared to CT abdomen pelvis from 10/12/2020 allowing for differencein modality. Stable ectasia of the abdominal aorta. THIS IS AN ELECTRONICALLY VERIFIED FINAL REPORT 05/24/2023 9:59 AM - Electronically signed by Ofelia Bañuelos M.D. LC: AMADO Report ID: [id number] Reading Location: [place] [address] Cassius London MD IM MRI PROCEDURES Final Result documented in this encounter Visit Diagnoses Diagnosis Spinal stenosis of lumbar region with neurogenic claudication documented in this encounter Care Teams Orthotic Assistant Relationship Specialty Start Date End Date Cassius London MD [address] [place] [address] PCP - General 02/06/17 documented as of this encounter
--- OUTSIDE RECORDS SUMMARY | 2024-10-26 01:16 | XMS_ITS | Encounter Summary ---
Author Organization [facility] Address [address] [place] [address] Phone Care Team Providers Care Packaging Designer Name Role Phone Cassius London MD Primary Care Provider + Encounter Details Date Type Department Care Team (Late st Contact Info) Description 05/20/2023 Telephone [facility] Surgery [address] [place] [address] [address] [place] [phone] Rain Quinn BS Social History Tobacco Use Types Packs/Day Years [...] often do you attend chur ch or restoration services? 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 Cassius London's office for pt to be seen for a nevus of the left ankle. Called and left message on pt's answering machine for him to call back to schedule an appt. documented in this encounter Plan of Treatment Not on file documented as of this encounter Visit Diagnoses Not on filedocumented in this encounter Care Teams Packaging Designer Relationship Specialty Start Date End Date Cassius London MD [address] [facility] [place] [address] PCP - General 02/06/17 documented as of this encounter
--- OUTSIDE RECORDS SUMMARY | 2024-10-26 01:17 | XMS_ITS | Encounter Summary ---
Author Organization [facility] Address [address] [facility] [address] [place] [address] Phone Care Team Providers Care Business Manager College Or [employer] Name Role Phone Cassius London MD Primary Care Provider + Reason for Visit * Reason Comments Return Patient RETURN PATIENT; NEW BX PROVEN LESION * Consultation (Routine) - Closed Specialty Diagnoses / Procedures Referred By Contac t Referred To Contact Plastic Surgery Diagnoses SCC (squamous cell carcinoma), ear, right Cassius London MD [address] [facility] [place] [address] Phone: tel: fax: [facility] (All Locations) Referral ID Status Reason Start Date Expiration Date V isits Requested Visits Authorized [id number] Closed Specialty Services Required 12/06/2020 12/01/2021 12 12 Encounter Details Date Type Department Care Team (Late st Contact Info) Description 12/14/2020 11:15 AM SENIOR QUALITATIVE RESEARCHER Office Visit [facility] Physicians [facility] Surgery [address] [place] [address] [address] [place] [phone] Francisco Bolton III, MD [address] [facility] [phone] [place] [address] 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) Social History Tobacco Use Types Packs/Day Years Used Date Smoking Tobacco: Former Cigarettes Q uit: 2012 Smokeless Tobacco: Never Alcohol Use Standard Drinks/Week Comments No 0 (1 standard drink = 0.6 oz pur e alcohol) Sex and Gender Information Value Date Recorded Sex Assigned at Not on file Legal Sex Male 1:17 PM SENIOR QUALITATIVE RESEARCHER Gender Identity Not on file Sexual Orientation Not on file documented as of this encounter Ordered Prescriptions Prescription Sig Dispense Quantity Refills Last Filled Start Date End Date fluorouraciL (EFUDEX) 5 % cream Apply topically 2 (two) times a day For 6 weeks 40 g 1 12/14/2020 2 documented in this encounter Progress Notes * Francisco Bolton III, MD - 12/14/2020 11:15 AM CST Xavier returns to the office today after 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 On exam today, there is little evidence remaining of the squamous cell in situ lesion. The biopsy site is healed. There is a tiny amount of flaky skin, but nothing that qualifies as tumor. No cervical lymphadenopathy. I reviewed the pathology report that does show squamous cell in situ, extending with a minute focus to 1 peripheral margin. I have recommended that we treat with Efudex and then monitor for recurrence. He is on board with this plan. I did tell him that if he does notice recurrence of the tumor, he should contact us quickly, as squamous cell of the ear has a rather high risk for spread. He understands, and will proceed as planned. He will follow up with us p.r.n.. I spent 10 minutes on this patient encounter, over half of which was pwna-ih-bajn time spent counseling and coordinating care. 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
--- OUTSIDE RECORDS SUMMARY | 2024-10-26 01:17 | XMS_ITS | Encounter Summary ---
Author Organization [facility] Healthcare Address [address] [place] [address] Care Team Providers Care Automatic Winder Operator Name Role Phone Cassius London MD Primary Care Provider + Encounter Details Date Type Department Care Team (Late st Contact Info) Description 10/12/2020 8:30 AM SLAT GRADER Lab [address] [phone] Social History Tobacco Use Types Packs/Day Years Used Date Smoking Tobacco: Former Cigarettes Q uit: 2012 Smokeless Tobacco: Never Alcohol Use Standard Drinks/Week Comments No 0 (1 standard drink = 0.6 oz pur e alcohol) Sex and Gender Information Value Date Recorded Sex Assigned at Not on file Legal Sex Male 1:17 PM SLAT GRADER Gender Identity Not on file Sexual Orientation Not on file documented as of this encounter Plan of Treatment Not on file documented as of this encounter Visit Diagnoses Not on filedocumented in this encounter Care Teams Automatic Winder Operator Relationship Specialty Start Date End Date Cassius London MD [address] [place] [address] PCP - General 02/06/17 documented as of this encounter
--- OUTSIDE RECORDS SUMMARY | 2024-10-26 01:17 | XMS_ITS | Encounter Summary ---
Author Organization [facility] Address [address] [place] [address] Care Team Providers Care Developmental Writing Instructor Name Role Phone Cassius London MD Primary Care Provider + Encounter Details Date Type Department Care Team (Late st Contact Info) Description 05/29/2020 7:32 AM CDT Anesthesia Event [address] [address] Jesus Bates MD PhD [address] [place] [id number] Mitchel Bernal, [facility] [address] [place] [id number] Anesthesia Record Procedure Summary Procedure Name Responsible Anesthesiologist Anesthesia Start Time Anesthesia Stop Time COLON BIOPSY (Colon) Jesus Bates MD PhD 05/29/20 0732 05/29/20 0757 Events Date Time Event Comment 05/29/2020 0732 An Start 0732 An Start Data 0734 0734 Start Supplemental O2 0734 In Room 0735 Patient Positioned Laterally 0735 An Induction The patient was reevaluated immediately before moderate or deep sedation use and before anesthesia induction. 0736 Anesthesia Ready 0736 Proc Start 0755 Proc Fin 0755 Out of Room 0756 an stop data 0757 Handoff to RN I completed my handoff to the receiving nurse during which we: 1. Patient identified 2. Responsible provider identified 3. Pertinent medical history reviewed 4. Procedure type and surgical course discussed 5. Intraoperative anesthetic management and any significant issues discussed 6. Expectations and concerns for postop period discussed 7. Questions solicited from receiving nurse 8. Patient disposition at the time of handoff: PACU 075 An Stop Meds Name Total lidocaine 2 % PF 100 mg propofol 220 mg sodium chloride 0.9% infusion 400 mL * Agents Name O2 * Blood No blood administrations on file. Lines, Drains, and Airways Type Details Placement Removal Peripheral IV Placement Date: 05/10 11/28; Placement Time: 725; Catheter Size: 20 G; Orientation: Right; Location: Hand; Site Prep: Chlorhexidine; Technique: Anatomical landmarks; Inserted by: Brittny Caban; Insertion Attempts: 1; Patient Tolerance: Tolerated well; Removal Date: 05/29/20; Removal Time: 845; Removal Reason: Therapy completed 05/29/20725 by Brittny Caban RN 05/29/20845 by Brittny Caban RN documented in this encounter Social History Tobacco Use Types Packs/Day Years Used Date Smoking Tobacco: Former Cigarettes Q uit: 2011 Smokeless Tobacco: Never Alcohol Use Standard Drinks/Week Comments No 0 (1 standard drink = 0.6 oz pur e alcohol) Sex and Gender Information Value Date Recorded Sex Assigned at Not on file 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 Gender Identity Not on file Sexual Orientation Not on file documented as of this encounter OR Notes * Anesthesia Postprocedure Evaluation - Jesus Bates MD PhD - 05/29/2020 11:07 AM CDT Patient: Xavier Clarke Procedure Summary Date: 05/29/20 Room / Location: [facility] ROOM 2 / [facility] Anesthesia Start: 731 Anesthesia Stop: 756 Procedure: COLONOSCOPY (N/A Colon) Diagnosis: Diarrhea, unspecified type Personal history of colonic polyps (Diarrhea, unspecified type [R19.7]) (Personal history of colonic polyps [Z86.010]) Provider: Jay Jay Flor MD Responsible Provider: Jesus Bates MD PhD Anesthesia Type: general/TIVA ASA Status: 3 Anesthesia Type: general/TIVA Last vitals BP 133/70 (BP Location: Left arm, Patient Position: Sitting) Pulse 65 Temp 36.8 ??C (98.3 ??F) (Temporal) Resp 18 SpO2 99% Anesthesia Post Evaluation Patient location during evaluation: PACU Patient participation: complete - patient participated Level of consciousness: fully awake Pain score: 0 Pain management: adequate Airway patency: adequate Anesthetic complications: no Cardiovascular status: acceptable Respiratory status: acceptable Hydration status: acceptable Pt is: normothermic Nausea/Vomiting status: none * Anesthesia Preprocedure Evaluation - Jesus Bates MD PhD - 05/29/2020 7:04 AM CDT Images from the original note were not included. Anesthesia Evaluation Xavier Clarke is a 79 y.o. male Procedure(s): COLONOSCOPY Pre-Op Diagnosis Codes: * Diarrhea, unspecified type [R19.7] * Personal history of colonic polyps [Z86.010] HISTORY Past Medical History Information obtained from: patient and chart. Neurological Neuro/Psych system: negative Cardiovascular + Hypertension + Hyperlipidemia Respiratory + COPD Comments: asbestosis Hepatic / Heme Hepatic/Heme system: negative Gastrointestinal GI system: negative Renal / Renal/ system: negative Endocrine / Other + Cancer history- skin cancer only. Patient Active Problem List Diagnosis ??? Hyperlipidemia ??? Hypersomnia ??? Vitamin D deficiency ??? Chronic obstructive pulmonary disease with acute exacerbation (CMS/HCC) ??? Elevated prostate specific antigen (PSA) ??? Benign hypertension ??? Healthcare maintenance ??? Medication management ??? Diastasis of rectus abdominis ??? Umbilical hernia without obstruction and without gangrene ??? Former smoker, stopped smoking many years ago ??? Sebaceous cyst ??? Basal cell carcinoma of lower leg, right ??? Diarrhea ??? Personal history of colonic polyps Past Medical History: Diagnosis Date ??? Asbestosis (CMS/HCC) asbestosis ??? Cancer (CMS/HCC) biopsy showed small area of prostate cancer ??? Chronic diarrhea ??? HX OTHER MEDICAL dyslipidemia ??? HX OTHER MEDICAL PAD ??? HX OTHER MEDICAL ED ??? HX OTHER MEDICAL 01-pulmonolgist ??? HX OTHER MEDICAL v. veins ??? HX OTHER MEDICAL prostatism ??? HX OTHER MEDICAL diastasis recti ??? HX OTHER MEDICAL 2002 diverticular bleed ??? HX OTHER MEDICAL 2013 Prostate biopsy ??? Hypertension Hypertension ??? Mixed hyperlipidemia ??? 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 Polyp of colon colon polyps Past Surgical History: Procedure Laterality Date ??? BACK SURGERY back surgery x 3 ??? BREAST LUMPECTOMY Right Benign / done years ago / ??? COLONOSCOPY 08/12/2016 ??? HERNIA REPAIR Hernia repair ??? OTHER SURGICAL HISTORY s/p HNP L spine Allergies Allergen Reactions ??? Miguel A Inhibitors Cough Reaction: Cough, ? ? Vicodin [Hydrocodone-Acetaminophen] Nausea & Vomiting Med List Status: Nurse Complete Set By: Emily Simmons RN at 05/28/2020 1:12 PM Taking? Last Dose Start Date End Date Provider albuterol HFA (PROAIR HFA) 90 mcg/actuation inhaler More than a month 09/25/15 -- Cassius London MD inhale 2 puff by inhalation route every 4 - 6 hours as needed lgVUSUWmhk-sfotkjxgj-vvldddjxo (EXFORGE HCT) 5-160-12.5 mg tablet 05/28/2020 08/12/17 -- ChristopherR. Surya MD Take 1 tablet by mouth daily Notes: taking as directed aspirin 81 mg chewable tablet Past Week 12/17/15 -- Cassius London MD chew 1 tablet by oral route every day calcium carbonate (OS-PINEDA) 1,500 mg (600 mg of elemental calcium) tablet Past Week 07/29/17 -- Cassius London MD Take 1 tablet (1,500 mg total) by mouth daily. cholecalciferol (VITAMIN D-3) 5,000 unit tablet Past Week 07/29/17 -- Cassius London MD Take 1 tablet (5,000 Units total) by mouth daily. kibyknpe-etb-kfrmv-vit K-lycop (ONE-A-DAY MEN'S MULTIVITAMIN) 400-20-300 mcg tablet Past Week 08/23/08 -- KRISSY Hendricks Take one by mouth one time per day simvastatin (ZOCOR) 40 mg tablet Not Taking 08/28/08 -- Cassius London MD TAKE ONE TABLET BY MOUTH ONCE DAILY IN THE EVENING Patient not taking: Reported on 05/28/2020 tamsulosin (FLOMAX) 0.4 mg capsule,extended release 24hr 05/28/2020 08/06/16 -- Cassius London MD take 1 capsule by oral route every day 1/2 hour following the same meal each day Current Facility-Administered Medications: ??? ondansetron (ZOFRAN) injection 4 mg, 4 mg, intravenous, Q30 Min PRN ??? sodium chloride 0.9% flush 0.5-20 mL, 0.5-20 mL, intra-catheter, Q8H KAYE ??? sodium chloride 0.9% flush 0.5-20 mL, 0.5-20 mL, intra-catheter, PRN ??? sodium chloride 0.9% infusion, 30 mL/hr, intravenous, Continuous ??? sodium chloride 0.9% infusion, 125 mL/hr, intravenous, Continuous Social History Tobacco Use Smoking Status Former Smoker ??? Last attempt to quit: 2011 ??? Years since quittin.5 Smokeless Tobacco Never Used Substance and Sexual Activity Alcohol Use No Substance and Sexual Activity Drug Use No Family History Problem Relation Age of Onset ??? Dementia Mother 87 Dementia; ??? Cancer Mother 87 cancer; ??? Other Father hx not provided; ??? Cancer Brother 60 Cancer -; ??? Bone cancer Brother ??? Brain cancer Brother 62 Cancer -brain; ??? Lung cancer Brother 62 Cancer -lung; ??? Lung cancer Sister Cancer, lung; ??? Brain cancer Sister There were no vitals filed for this visit. PT: No results found for requested labs within last 720 hours. INR: No results found for requested labs within last 720 hours. APTT: No results found for requested labs within last 720 hours. Hgb A1C: No results found for requested labs within last 720 hours. CBC RBC: No results found for requested labs within last 720 hours. RDW: No results found for requested labs within last 720 hours. MCHC: No results found for requested labs within last 720 hours. MCH: No results found for requested labs within last 720 hours. MCV: No results found for requested labs within last 720 hours. Hct: No results found for requested labs within last 720 hours. Hgb: No results found for requested labs within last 720 hours. WBC: No results found for requested labs within last 720 hours. MPV: No results found for requested labs within last 720 hours. Platelets: No results found for requested labs within last 720 hours. RDW CV: No results found for requested labs within last 720 hours. RDW Sd: No results found for requested labs within last 720 hours. BMP Glucose: No results found for requested labs within last 720 hours. Calcium: No results found for requested labs within last 720 hours. Sodium: No results found for requested labs within last 720 hours. Potassium: No results found for requested labs within last 720 hours. CO2: No results found for requested labs within last 720 hours. Chloride: No results found for requested labs within last 720 hours. BUN: No results found for requested labs within last 720 hours. Creatinine: No results found for requested labs within last 720 hours. STOP-Bang Total Score: 3 DOS Physical Exam Medical history, medications, and allergies reviewed. Attestation: I endorse the findings of the anesthesia pre-evaluation assessment dated: 05/29/2020. Airway Exam: Mallampati: II Cervical ROM: FROM TM distance: normal Jaw ROM: full Cardiovascular Exam: Rate: regular Rhythm: regular Pulmonary Exam: LCTA, bilat EENT Exam: trachea midline Current state: Patient's current state is cooperative and interactive. Anesthesia Plan ASA 3 Planned anesthesia: General/TIVA Induction: Induction: intravenous. Postoperative Plan: No plan for postoperative opioid use. No postoperative mechanical ventilation intended. Patient's planned disposition post procedure is Outpatient. Informed Consent: Discussed plan with PACKING ATTENDANT and attending. Anesthesia plan and risks discussed with patient. Consent and Attending signature: I and/or my designee have discussed the anesthesia plan, benefits, possible alternatives, parental presence at time of induction (if indicated), and clinically relevant risks that may include dental injury, unintentional awareness, and/or other complications. The patient and/or parent/legal guardian understand, and agree to proceed. All questions answered. documented in this encounter Plan of Treatment Not on file documented as of this encounter Visit Diagnoses Not on filedocumented in this encounter Administered Medications Inactive Administered Medications - up to 3 most recent administrations Medication Order MAR Action Action Date Dose Rate Site lidocaine (XYLOCAINE) 20 mg/mL (2 %) preservative free injection As needed, Starting on Thu05/29/20 at 0734, Anesthesia Intra-op Given 05/29/2020 7:34 AM CDT 100 mg propofoL (DIPRIVAN) IV As needed, Starting on Thu05/29/20 at 0735, Anesthesia Intra-op Given 05/29/2020 7:52 AM CDT 20 mg Given 05/29/2020 7:46 AM CDT 10 mg Given 05/29/2020 7:45 AM CDT 20 mg sodium chloride 0.9% infusion 125 mL/hr, intravenous, Continuous, Starting on Thu05/29/20 at 0730, Recovery (GI) New Bag 05/29/2020 7:32 AM CDT documented in this encounter Care Teams Developmental Writing Instructor Relationship Specialty Start Date End Date Cassius London MD [address] [place] [address] PCP - General 02/06/17 documented as of this encounter
--- OUTSIDE RECORDS SUMMARY | 2024-10-26 01:17 | XMS_ITS | Encounter Summary ---
Author Organization [facility] Address [address] [place] [address] Phone Care Team Providers Care Horticulture Supervisor Name Role Phone Cassius London MD Primary Care Provider + Encounter Details Date Type Department Care Team (Late st Contact Info) Description 08/07/2021 Nurse Triage [facility] Surgery [address] [place] [address] [address] [place] [address] Kong Arevalo Social History Tobacco Use Types Packs/Day Years Used Date Smoking Tobacco: Former Cigarettes Q uit: 2012 Smokeless Tobacco: Never Alcohol Use Standard Drinks/Week Comments No 0 (1 standard drink = 0.6 oz pur e alcohol) Sex and Gender Information Value Date Recorded Sex Assigned at Not on file 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 Donato documented in this encounter Plan of Treatment Not on file documented as of this encounter Visit Diagnoses Not on filedocumented in this encounter Care Teams Horticulture Supervisor Relationship Specialty Start Date End Date Cassius London MD [address] [place] [address] PCP - General 02/06/17 documented as of this encounter
--- OUTSIDE RECORDS SUMMARY | 2024-10-26 01:17 | XMS_ITS | Encounter Summary ---
Author Organization [facility] Healthcare Address [address] [place] [address] Care Team Providers Care Primary Health Care Nurse Name Role Phone Cassius London MD Primary Care Provider + Encounter Details Date Type Department Care Team (Latest Contact Info) Description 05/29/2020 6:48 AM CDT - 05/29/2020 8:47 AM CDT Hospital Encounter [facility] [address] [place] [address] Jay Jay Flor MD [address] [place] [address] [address] [place] [address] Diarrhea, unspecified type; Personal history of colonic polyps Discharge Disposition: Discharge to home or self care Social History Tobacco Use Types Packs/Day Years Used Date Smoking Tobacco: Former Cigarettes Q uit: 2011 Smokeless Tobacco: Never Alcohol Use Standard Drinks/Week Comments No 0 (1 standard drink = 0.6 oz pur e alcohol) Sex and Gender Information Value Date Recorded Sex Assigned at Not on file 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 Gender Identity Not on file Sexual Orientation Not on file documented as of this encounter Last Filed Vital Signs Vital Sign Reading Time Taken Comments Blood Pressure 133/70 05/29/2020 8:35 AM CDT Pulse 65 05/29/2020 8:35 AM CDT Temperature 36.8 ??C (98.3 ??F) 05/29/2020 8:35 AM CD T Respiratory Rate 18 05/29/2020 8:35 AM CDT Oxygen Saturation 99% 05/29/2020 8:35 AM CDT Inhaled Oxygen Concentration - - Weight 86.2 kg (190 lb) 05/29/2020 7:03 AM CDT Height 172.7 cm (5' 8 ) 05/29/2020 7:03 AM CDT Body Mass Index 28.89 05/29/2020 7:03 AM CDT documented in this encounter Discharge Diagnoses Diagnosis Noninfective gastroenteritis and colitis, unspecified - NONINFECTIVE GASTROENTERITIS AND COLITIS, UNSPECIFIED Unspecified hemorrhoids - UNSPECIFIED HEMORRHOIDS Essential (primary) hypertension - ESSENTIAL (PRIMARY) HYPERTENSION Unspecified essential hypertension Chronic obstructive pulmonary disease with (acute) exacerbation (HCC) - CHRONIC OBSTRUCTIVE PULMONARY DISEASE WITH (ACUTE) EXACERBATION Diverticulosis of large intestine without perforation or abscess without bleeding - DIVERTICULOSIS OF LARGE INTESTINE WITHOUT PERFORATION OR ABSCESS WITHOUT BLEEDING Benign prostatic hyperplasia without lower urinary tract symptoms - BENIGN PROSTATIC HYPERPLASIA WITHOUT LOWER URINARY TRACT SYMPTOMS 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 90 tablet 07/29/2017 khrsuanh-awb-blu ic-vit K-lycop (ONE-A-DAY MEN'S MULTIVITAMIN) 400-20-300 mcg tablet Take one by mouth one time per day 0 0 08/23/2008 amLODIPine-valsa rtan-hcthiazid (EXFORGE HCT) 5-160-12.5 mg tablet Take 1 tablet by mouth daily 90 tablet 3 08/12/2017 1 aspirin 81 mg chewable tablet chew 1 tablet by oral route every day 0 0 2015 3 calcium carbonate (OS-PINEDA) 1,500 mg (600 mg of elemental calcium) tablet Take 1 tablet (1,500 mg total) by mouth daily. 30 tablet 07/29/2017 3 simvastatin (ZOCOR) 40 mg tablet TAKE ONE TABLET BY MOUTH ONCE DAILY IN THE EVENING 90 5 08/28/2008 2 tamsulosin (FLOMAX) 0.4 mg capsule,extended release 24hr take 1 capsule by oral route every day 1/2 hour following the same meal each day 0 0 08/06/2016 4 documented as of this encounter Discharge Disposition Disposition Code Departure Means Destination Discharge to home or self care documented in this encounter H&P Notes * Jay Jay Flor MD - 05/29/2020 7:32 AM CDT Plan of Care : Based on the above findings, I consider Xavier Juan to be an acceptable risk for :Procedure(s): COLONOSCOPY Source Note - Jesus Bates MD PhD - 05/29/2020 7:04 AM CDT Images from the original note were not included. Anesthesia Evaluation Xavier Juan is a 79 y.o. male Procedure(s): COLONOSCOPY [...] every 4 - 6 hours as needed pvYUSNXapb-jeezhgbrc-rqdmzhstk (EXFORGE HCT) 5-160-12.5 mg tablet 05/28/2020 08/12/17 -- ChristopherR. Surya MD Take 1 tablet by mouth daily Notes: taking as directed aspirin 81 mg chewable tablet Past Week 12/17/15 -- Cassius London MD chew 1 tablet by oral route every day calcium carbonate (OS-PINEDA) 1,500 mg (600 mg of elemental calcium) tablet Past Week 07/29/17 -- Cassius Lonodn MD Take 1 tablet (1,500 mg total) by mouth daily. cholecalciferol (VITAMIN D-3) 5,000 unit tablet Past Week 07/29/17 -- Cassius London MD Take 1 tablet (5,000 Units total) by mouth daily. jjevliky-fcv-ptlnm-vit K-lycop (ONE-A-DAY MEN'S MULTIVITAMIN) 400-20-300 mcg tablet [...] flush 0.5-20 mL, 0.5-20 mL, intra-catheter, Q8H AKYE ??? sodium chloride 0.9% flush 0.5-20 mL, [...] is Outpatient. Informed Consent: Discussed plan with ORTHO/PROSTHETIC AIDE and attending. Anesthesia plan and risks discussed [...] All questions answered. documented in this encounter Procedure Notes * Jay Jay Flor MD - 05/29/2020 7:25 AM CDTAssociated Order(s): COLONOSCOPY [facility] Patient Name: Xavier Juan Procedure Date: 05/29/2020 7:25 AM Date of : 1940 Admit Type: Outpatient Age: 79 Gender: Male Attending MD: Jay Jay Flor M.D. Room: [facility] ENDOSCOPY ROOM 2 Note Status: Finalized Patient Profile: Refer to note in patient chart for documentation of history and physical. Procedure: Colonoscopy Indications: Last colonoscopy: August 2016 Referring MD: Cassius London M.D. Providers: Jay Jay Flor M.D. Impression: - Hemorrhoids found on perianal exam. - Diverticulosis in the sigmoid colon and in the descending colon. - No specimens collected. Recommendation: - Discharge patient to home. - Resume previous diet. - Continue present medications. - Await pathology results. - Repeat colonoscopy in 5 years for surveillance. - Return to primary care physician as previously scheduled. Medicines: Propofol per Anesthesia Complications: No immediate complications. Estimated Blood Loss: Estimated blood loss: none. Procedure: Pre-Anesthesia Assessment: - This assessment was completed [Time of Assessment] prior to the administration of sedation. The benefits, risks and alternatives of the procedure and sedation were discussed and informed consent was obtained. All questions were answered. Please refer to the signed informed consent document in the medical record. The bowel preparation used was Miralax. The bowel preparation used was bisacodyl tablets. Bowel prep was administered using a single dose. The scope was passed under direct vision. The Colonoscope [id number] was introduced through the anus and advanced to the the cecum, identified by appendiceal orifice and ileocecal valve. The colonoscopy was performed without difficulty. The patient tolerated the procedure well. The quality of the bowel preparation was excellent. Findings: Hemorrhoids were found on perianal exam. Multiple small and large-mouthed diverticula were found in the sigmoid colon and descending colon. The exam was otherwise normal throughout the examined colon. Normal mucosa was found [Site]. Biopsies for histology were taken with a cold forceps from the ascending colon for evaluation of microscopic colitis. Verification of patient identification for the specimen was done by the physician and nurse using the patient's name and date. Electronically signed by Jay Jay Flor M.D. Jay Jay Flor M.D. 05/29/2020 8:03:27 AM Number of Addenda: 0 Note Initiated On: 05/29/2020 7:25 AM Procedure Code(s): --- Professional --- 34330, Colonoscopy, flexible; with biopsy, single or multiple Diagnosis Code(s): --- Professional --- K57.30, Diverticulosis of large intestine without perforation or abscess without bleeding K64.9, Unspecified hemorrhoids CPT copyright 2017 [employer]. All rights reserved. The codes documented in this report are preliminary and upon intermediate project manager review may be revised to meet current compliance requirements. Recognized by the [employer] for promoting quality in endoscopy documented in this encounter Miscellaneous Notes * Perioperative Nursing Note - Brittny Caban RN - 05/29/2020 8:[address] Flor discharged patient and will call about biopsy report. documented in this encounter Plan of Treatment Not on file documented as of this encounter Procedures Procedure Name Priority Date/Time Associated Diagnosis Comments SURGICAL PATHOLOGY STAT 05/29/2020 12 :20 PM CDT Diarrhea, unspecified type Personal history of colonic polyps COLON BIOPSY 05/29/2020 7:29 AM CDT Diarrhea, unspecified type Personal history of colonic polyps COLONOSCOPY 05/29/2020 7:25 AM CDT documented in this encounter Results * Surgical pathology (05/29/2020 12:20 PM CDT) Tissue (Colon, Biopsy) 05/29/2020 7:57 AM CDT Narrative PATHOLOGY [facility] - 05/30/2020 1:53 PM CDT [facility] results best viewed via link to PDF [facility] Department of Pathology [address] [place] [address] Final Report Patient Name: ??XAVIER JUAN Triston Address: ??[address] [place] [address], ??[place], [place] [address] Gender: ??M : ??1940 (Age: 79) Service: ??Gastro Location: ??[facility] #: ??[id number] Patient Type: ??[facility] Accession # ?[id number] Taken: ??05/29/2020 Received: ??05/29/2020 Accessioned: ??05/29/2020 Reported: ??05/30/2020 Physician(s):Dr. Jay Jay Flor M.D. Diagnosis: Colon, descending, biopsies: ? -Mild chronic inflammation. -Negative for dysplasia or malignancy. Herbert Lei M.D. Report Electronically Reviewed and Signed Out By ??Dee Clark.D. ??05/30/2020 13:53:12 Specimen(s) Received: A: Ascending biopsies Microscopic Description: Microscopic examination of the random colon biopsies, examined multiple levels show fragments of minimally edematous colonic mucosa with a mild nonspecific, predominantly chronic inflammatory infiltrate within the lamina propria. ??Only scattered neutrophils are noted. ??There is no evidence of acute cryptitis, crypt abscesses, granulomas or other infiltrative processes, although a rare benign lymphoid aggregate is noted. ??There is no evidence of dysplasia or malignancy. Clinical History: Diarrhea. ??Personal history of colonic polyps. ??Colonoscopy. Gross Description: The specimen is submitted in a single container labeled Xavier L. Juan and ascending . ??It is six mg tissue fragment measuring 1-2 mm. ??All in one cassette. ??Herbert Lei M.D./Estefanía Sparks REPORT IMAGES AND SCANNED DOCUMENTS, IF INCLUDED, ONLY VIEWABLE IN PDF VERSION OF REPORT The performance characteristics of some immunohistochemical stains, fluorescence in-situ hybridization tests and immunophenotyping by flow cytometry cited in this report (if any) were determined by the Surgical Pathology Department at [facility] as part of an ongoing director supplier quality program and in compliance with federally mandated regulations drawn from the Clinical Laboratory Improvement Act of 1988 (CLIA '88). ??Some of these tests rely on the use of analyte specific reagents and are subject to specific labeling requirements by the US Food and Drug Administration. ??Such diagnostic tests may only be performed in a facility that is certified by the Department of Health and Human Services as a high complexity laboratory under CLIA '88. The FDA has determined that such clearance or approval is not necessary. ??This test is used for clinical purposes. ??It should not be regarded as investigational or for research. ??Nevertheless, federal rules concerning the medical use of analyte specific reagents require that the following disclaimer be attached to the report: This test was developed and its performance characteristics determined by the Surgical Pathology Department [facility]. ??It has not been cleared or approved by the U. S. Food and Drug Administration. Jay Jay Flor MD LAB PATHOLOGY ORDERABLES Marah christianson Result PATHOLOGY [facility] [address] [place] [address] * COLONOSCOPY (05/29/2020 7:25 AM CDT) Anatomical Region Laterality Modality Other Narrative Procedure Note Jay Jay Flor MD - 05/29/2020 7:[address] [facility] Patient Name: Xavier Juan Procedure Date: 05/29/2020 7:25 AM Date of : 1940 Admit Type: Outpatient Age: 79 Gender: Male Attending MD: Jay Jay Flor M.D. Room: [facility]COPY ROOM 2 Note Status: Finalized Patient Profile: Refer to note in patient chart for documentation of history and physical. Procedure: Colonoscopy Indications: Last colonoscopy: August 2016 Referring MD: Cassius London M.D. Providers: Jay Jay Flor M.D. Impression: - Hemorrhoids found on perianal exam. - Diverticulosis in the sigmoid colon and in the descending colon. - No specimens collected. Recommendation: - Discharge patient to home. - Resume previous diet. - Continue present medications. - Await pathology results. - Repeat colonoscopy in 5 years for surveillance. - Return to primary care physician as previously scheduled. Medicines: Propofol per Anesthesia Complications: No immediate complications. Estimated Blood Loss: Estimated blood loss: none. Procedure: Pre-Anesthesia Assessment: - This assessment was completed [Time of Assessment] prior to the administration of sedation. The benefits, risks and alternatives of theprocedure and sedation were discussed and informed consent was obtained. All questions were answered. Please referto the signed informed consent document in the medical record. The bowel preparation used was Miralax. The bowel preparation used was bisacodyl tablets. Bowel prep was administered using a single dose. The scope was passed under direct vision. The Colonoscope [id number] was introduced through the anusand advanced to the the cecum, identified by appendiceal orifice and ileocecal valve. The colonoscopy was performed without difficulty. The patient toleratedthe procedure well. The quality of the bowel preparation was excellent. Findings: Hemorrhoids were found on perianal exam. Multiple small and large-mouthed diverticula were found in thesigmoid colon and descending colon. The exam was otherwise normal throughout the examined colon. Normal mucosa was found [Site]. Biopsies for histology were takenwith a cold forceps from the ascending colon for evaluation of microscopic colitis. Verification of patient identification for the specimen was done by the physician and nurse using the patient's name and birthdate. Electronically signed by Jay Jay Flor M.D. Jay Jay Flor M.D. 05/29/2020 8:03:27 AM Number of Addenda: 0 Note Initiated On: 05/29/2020 7:25 AM Procedure Code(s): --- Professional --- 24765, Colonoscopy, flexible; with biopsy, single or multiple Diagnosis Code(s): --- Professional --- K57.30, Diverticulosis of large intestine without perforation orabscess without bleeding K64.9, Unspecified hemorrhoids CPT copyright 2017 [employer]. All rights reserved. The codes documented in this report are preliminary and upon intermediate project manager reviewmay be revised to meet current compliance requirements. Recognized by the [employer] for promoting quality in endoscopy Jay Jay Flor MD ENDOSCOPY PROCEDURES Final Re sult documented in this encounter Visit Diagnoses Diagnosis Diarrhea, unspecified type Personal history of colonic polyps documented in this encounter Admitting Diagnoses Diagnosis Diarrhea Personal history of colonic polyps documented in this encounter Administered Medications Inactive Administered Medications - up to 3 most recent administrations Medication Order MAR Action Action Date Dose Rate Site ondansetron (ZOFRAN) injection 4 mg 4 mg, intravenous, Administer over 2 Minutes, Every 30 min PRN, nausea, vomiting, Starting on Thu05/29/20 at 0656, For 2 doses, Recovery (GI), Indications: Nausea and VomitingIndications:Nausea and Vomiting sodium chloride 0.9% flush 0.5-20 mL 0.5-20 mL, intra-catheter, Every 8 hours scheduled, First dose on Thu05/29/20 at 0730, Pre-Procedure (GI), Flush volume based on line type and size. sodium chloride 0.9% flush 0.5-20 mL 0.5-20 mL, intra-catheter, As needed, line care, Starting on Thu05/29/20 at 0657, Pre-Procedure (GI), Flush volume based on line type and size. Flush before and after each use. sodium chloride 0.9% infusion 30 mL/hr, intravenous, Continuous, Starting on Thu05/29/20 at 0730, Pre-Procedure (GI) New Bag 05/29/2020 7:32 AM CDT 30 mL/hr 30 mL/hr sodium chloride 0.9% infusion 125 mL/hr, intravenous, Continuous, Starting on Thu05/29/20 at 0730, Recovery (GI) New Bag 05/29/2020 7:32 AM CDT documented in this encounter Active and Recently Administered Medications Times are shown in CDT. Scheduled Medication Order 05/27/2020 05/28/2020 05/29/2020 sodium chloride 0.9% flush 0.5-20 mL 0.5-20 mL, intra-catheter, Every 8 hours scheduled, First dose on Thu05/29/20 at 0730, Pre-Procedure (GI), Flush volume based on line type and size. 0730 (Due) Continuous Medication Order 05/27/2020 05/28/2020 05/29/2020 sodium chloride 0.9% infusion 30 mL/hr, intravenous, Continuous, Starting on Thu05/29/20 at 0730, Pre-Procedure (GI) 0732 (New Bag - Prov ider: Brittny Caban RN) sodium chloride 0.9% infusion 125 mL/hr, intravenous, Continuous, Starting on Thu05/29/20 at 0730, Recovery (GI) 0732 (New Bag - Prov ider: Mitchel Bernal CRNA)0746 (Anesthesia Volume Adjustment - Provider: Mitchel Bernal CRNA) PRN Medication Order 05/27/2020 05/28/2020 05/29/2020 ondansetron (ZOFRAN) injection 4 mg 4 mg, intravenous, Administer over 2 Minutes, Every 30 min PRN, nausea, vomiting, Starting on Thu05/29/20 at 0656, For 2 doses, Recovery (GI), Indications: Nausea and Vomiting sodium chloride 0.9% flush 0.5-20 mL 0.5-20 mL, intra-catheter, As needed, line care, Starting on Thu05/29/20 at 0657, Pre-Procedure (GI), Flush volume based on line type and size. Flush before and after each use. documented in this encounter Orders Medications Ordered That Clint ht Not Have Been Administered Count Last Ordered Date First Ordered Date ondansetron (ZOFRAN) injection 4 mg 1 05/29 sodium chloride 0.9% flush 0.5-20 mL 2 05/10 sodium chloride 0.9% infusion 1 05/29/2020 documented in this encounter Care Teams Primary Health Care Nurse Relationship Specialty Start Date End Date Cassius London MD [id number] [facility] [place] [id number] PCP - General 02/06/17 documented as of this encounter
--- OUTSIDE RECORDS SUMMARY | 2024-10-26 01:17 | XMS_ITS | Encounter Summary ---
Author Organization [facility] Healthcare Address [address] [place] [address] Care Team Providers Care Tnt Powder Worker Name Role Phone Cassius London MD Primary Care Provider + Encounter Details Date Type Department Care Team (Late st Contact Info) Description 05/29/2020 7:30 AM CDT - 05/29/2020 8:00 AM CDT Surgery [facility] Digestive [facility] [address] [place] [address] Jay Jay Flor MD [address] [place] [address] [address] [place] [address] COLON BIOPSY Surgery Details Date/Time Status Location OR Service Patient Class Case Class Case Type Trauma Case? 05/29/2020 7:30 AM Posted [facility] ENDOSCOPY GI 02 Gastroenterology Outpatient Elective Panel 1 Procedure LRB Anes Op Region Wound Class Comments COLON BIOPSY N/A Monitor Anesthes ia Care Colon Class II - Clean Contaminated Surgeon Surgeon Role Service Panel Jay Jay Flor MD Primary Gastroenterology 1 documented in this encounter Social History Tobacco Use Types Packs/Day Years Used Date Smoking Tobacco: Former Cigarettes Q uit: 2011 Smokeless Tobacco: Never Alcohol Use Standard Drinks/Week Comments No 0 (1 standard drink = 0.6 oz pur e alcohol) Sex and Gender Information Value Date Recorded Sex Assigned at Not on file Legal Sex Male 1:17 PM ASSISTANT 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 DIRECTOR Gender Identity Not on file Sexual Orientation Not on file documented as of this encounter Last Filed Vital Signs Vital Sign Reading Time Taken Comments Blood Pressure 132/71 05/29/2020 7:03 AM CDT Pulse 73 05/29/2020 7:03 AM CDT Temperature 36.6 ??C (97.8 ??F) 05/29/2020 7:03 AM CD T Respiratory Rate 18 05/29/2020 7:03 AM CDT Oxygen Saturation 96% 05/29/2020 7:03 AM CDT Inhaled Oxygen Concentration - - Weight 86.2 kg (190 lb) 05/29/2020 7:03 AM CDT Height 172.7 cm (5' 8 ) 05/29/2020 7:03 AM CDT Body Mass Index 28.89 05/29/2020 7:03 AM CDT documented in this encounter Medications at Time of Discharge albuterol HFA (PROAIR HFA) 90 mcg/actuation inhaler inhale 2 puff by inhalation route every 4 - 6 hours as needed 1 Inhaler 1 09/25/2015 cholecalciferol (VITAMIN D-3) 5,000 unit tablet Take 1 tablet (5,000 Units total) by mouth daily. 90 tablet 07/29/2017 loyumqbg-qhc-lrf ic-vit K-lycop (ONE-A-DAY MEN'S MULTIVITAMIN) 400-20-300 mcg [...] every 4 - 6 hours as needed xqQLHWRmsa-hxytrffsv-lvuystrog (EXFORGE HCT) 5-160-12.5 mg tablet 05/28/2020 08/12/17 -- Cassius London MD Take 1 tablet by mouth daily [...] tablet (5,000 Units total) by mouth daily. kmcrmjdq-aek-ahlzs-vit K-lycop (ONE-A-DAY MEN'S MULTIVITAMIN) 400-20-300 mcg tablet [...] is Outpatient. Informed Consent: Discussed plan with DONKEY RIDE OPERATOR and attending. Anesthesia plan and risks discussed [...] - 05/29/2020 7:25 AM CDTAssociated Order(s): COLONOSCOPY [facility] Patient Name: Xavier Juan Procedure Date: 05/29/2020 7:25 AM Date of : 1940 Admit Type: Outpatient Age: 79 Gender: Male Attending MD: Jay Jay Flor M.D. Room: [facility] ENDOSCOPY ROOM 2 Note Status: Finalized Patient [...] was passed under direct vision. The Colonoscope [id number] was introduced through the anus and advanced [...] 7:25 AM Procedure Code(s): --- Professional --- 39621, Colonoscopy, flexible; with biopsy, single or multiple Diagnosis Code(s): --- Professional --- K57.30, Diverticulosis of large intestine without perforation or abscess without bleeding K64.9, Unspecified hemorrhoids CPT copyright 2017 [employer]. All rights reserved. The codes documented in this report are preliminary and upon hims coder review may be revised to meet current compliance requirements. Recognized by the [employer] [employer] for promoting quality [...] Biopsy) 05/29/2020 7:57 AM CDT Narrative PATHOLOGY [facility] - 05/30/2020 1:53 PM CDT [facility] results best viewed via link to PDF [facility] Department of Pathology [address] [place] [address] Final Report Patient Name: ??XAVIER JUAN Address: ??[address] [place] [address], ??[place], [place] ??[facility] Gender: ??M : ??1940 (Age: 79) Service: ??Gastro Location: ??[facility] Hospital #: ??[id number] Patient Type: ??[facility] Accession # ?[id number] Taken: ??05/29/2020 Received: ??05/29/2020 Accessioned: ??05/29/2020 Reported: ??05/30/2020 Physician(s):Dr. Jay Jay Flor M.D. Diagnosis: Colon, descending, biopsies: ? -Mild chronic inflammation. -Negative for dysplasia or malignancy. Herbert Lei M.D. Report Electronically Reviewed and Signed Out By ??Herbert Izaguirre M.D. ??05/30/2020 13:53:12 Specimen(s) Received: A: Ascending biopsies [...] submitted in a single container labeled Xavier LCompa Juan and ascending . ??It is six [...] determined by the Surgical Pathology Department at [facility] as part of an ongoing coding quality analyst program and in compliance with federally mandated [...] characteristics determined by the Surgical Pathology Department [facility]. ??It has not been cleared or approved by the U. S. Food and Drug Administration. Jay Jay Flor MD LAB PATHOLOGY ORDERABLES Marah christianson Result PATHOLOGY [facility] [place]) [address] [place] [address] * COLONOSCOPY (05/29/2020 7:25 AM CDT) Anatomical Region Laterality Modality Other Narrative Procedure Note Jay Jay Flor MD - 05/29/2020 7:25 AM CDT [facility] Patient Name: Xavier Juan Procedure Date: 05/29/2020 7:25 AM Date of : 1940 Admit Type: Outpatient Age: 79 Gender: Male Attending MD: Jay Jay Flor M.D. Room: [facility] ENDOSCOPY ROOM 2 Note Status: Finalized Patient Profile: Refer to note in patient chart for documentation of history and physical. Procedure: Colonoscopy Indications: Last colonoscopy: August 2016 Referring MD: Cassius London M.D. Providers: Jay Jya Flor M.D. Impression: - Hemorrhoids found on [...] was passed under direct vision. The Colonoscope [id number] was introduced through the anusand advanced to [...] 7:25 AM Procedure Code(s): --- Professional --- 52615, Colonoscopy, flexible; with biopsy, single or multiple Diagnosis Code(s): --- Professional --- K57.30, Diverticulosis of large intestine without perforation orabscess without bleeding K64.9, Unspecified hemorrhoids CPT copyright 2017 [employer]. All rights reserved. The codes documented in this report are preliminary and upon hims coder reviewmay be revised to meet current compliance requirements. Recognized by the [place] [employer] for promoting quality in endoscopy Jay Jay Flor MD ENDOSCOPY PROCEDURES Final Re sult documented in this encounter Visit Diagnoses Diagnosis Diarrhea, unspecified type Personal history of colonic polyps Diarrhea, unspecified type Personal history of colonic [...] 05/29/2020 documented in this encounter Care Teams Tnt Powder Worker Relationship Specialty Start Date End Date Cassius London MD [address] [facility] [place] [address] PCP - General 02/06/17 documented as of this encounter
--- OUTSIDE RECORDS SUMMARY | 2024-10-26 01:17 | XMS_ITS | Encounter Summary ---
Author Organization [facility] Healthcare Address [address] [place] [address] Care Team Providers Care Oenologist Name Role Phone Cassius London MD Primary Care Provider + Reason for Referral * Diagnostic Imaging (Routine) - Closed Specialty Diagnoses / Procedures Referred By Italia valles Referred To Contact Radiology Diagnoses Solitary pulmonary nodule Procedures CT Chest [place] [address] [place] [address] Phone: tel: fax: [address] [phone] Referral ID Status Reason Start Date Expiration Date Visits Re quested Visits Authorized [id number] Closed 01/07/2021 02/06/2021 1 1 ER DEVELOPMENT MANAGER Reason for Visit * Diagnostic Imaging (Routine) - Closed Specialty Diagnoses / Procedures Referred By Italia valles Referred To Contact Radiology Diagnoses Solitary pulmonary nodule Procedures CT Chest [place] [address] [address] Phone: tel: fax: [address] [phone] Referral ID Status Reason Start Date Expiration Date Visits Re quested Visits Authorized [id number] Closed 01/07/2021 02/06/2021 1 1 Encounter Details Date Type Department Care Team (Latest Contact Info) Description 01/07/2021 10:51 AM DEALER DEVELOPMENT MANAGER - 01/07/2021 11:59 PM DEALER DEVELOPMENT MANAGER Hospital Encounter [facility] Imaging Center [address] [place] [address] [place] [address] [address] Solitary pulmonary nodule Discharge Disposition: Discharge to [...] on file Legal Sex Male 1:17 PM DEALER DEVELOPMENT MANAGER Gender Identity Not on file Sexual Orientation Not on file documented as of this encounter Medications at Time of Discharge albuterol HFA (PROAIR HFA) 90 mcg/actuation inhaler inhale 2 puff by inhalation route every 4 - 6 hours as needed 1 Inhaler 1 09/25/2015 cholecalciferol (VITAMIN D-3) 5,000 unit tablet Take 1 tablet (5,000 Units total) by mouth daily. 90 tablet 07/29/2017 ppagsogv-nnc-ezu ic-vit K-lycop (ONE-A-DAY MEN'S MULTIVITAMIN) 400-20-300 mcg [...] by mouth daily. 30 tablet 07/29/2017 3 fluorouraciL (EFUDEX) 5 % cream Apply topically 2 (two) times a day For 6 weeks 40 g 1 12/14/2020 2 simvastatin (ZOCOR) 40 mg tablet TAKE ONE [...] CONTRAST Schedule Routine, Read Routine (OP Routine) 01/07/2021 11:17 AM DEALER DEVELOPMENT MANAGER Solitary pulmonary nodule documented in this encounter Results * CT Chest WO Contrast (01/07/2021 11:17 AM DEALER DEVELOPMENT MANAGER) Anatomical Region Laterality Modality Body N/A Computed Tomogra phy 01/07/2021 11:1 2 AM DEALER DEVELOPMENT MANAGER Narrative 01/08/2021 5:54 PM DEALER DEVELOPMENT MANAGER [facility] Imaging Center ?Imaging Result Name: CLARITA JUAN ? [facility] Age[facility] 80 ?Date of : 1940 ? Accession Number: [id number] Date of Service: 01/07/2021 ??Gender: M EXAM DESCRIPTION: ?? CT CHEST WO CONTRAST REASON FOR STUDY: ?? Right breast lumpectomy, beginnings of COPD, and productive cough for the last few months.Duration: 3-4 months TECHNIQUE: ??CT scan of the chest performed without intravenous contrast using helical scanning technique. Reconstructed coronal and sagittal MPR images reviewed. ??All images stored on PACS. ??Automated exposure control was used as a dose optimization technique for this examination. COMPARISON: ?? CT chest 01/05/2020. ??06/28/2020. ??The sensitivity for detection of solid visceral lesions is diminished without the use of intravenous contrast. LUNGS: ??There is moderate biapical pleuroparenchymal scarring. ??Moderate mixed centrilobular and paraseptal pulmonary emphysema. ??There are a couple of new clustered pulmonary nodules in the base of the left lower lobe the largest of which measures 8 mm on image 91. ??Interval development of these findings from CT abdomen pelvis 10/12/2020 favors inflammatory nodularity possibly related to bronchiolitis. ??There is central peribronchial thickening and layering mucus in the right mainstem bronchus in keeping with chronic bronchitis. There is also mucous plugging in the posterior basilar segment of the right lower lobe. ??Trace atelectasis in the dependent lung bases. ??There is an 8 mm nodule in the medial right upper lobe image 30 without significant change in size dating back to 01/05/2020. ??Unchanged couple 2 mm nodules anterior right apex image 21. ??Stable 4 mm nodule right apex image 20. ??Stable 3 mm subpleural nodule left upper lobe image 33. PLEURA: ??No pleural effusion or pneumothorax. MEDIASTINUM/KRISTYN: ??Lack of IV contrast limits assessment for mediastinal and hilar lymphadenopathy. ??No enlarged mediastinal or hilar lymph nodes identified. ??There are calcified bilateral hilar lymph nodes in keeping with old granulomatous disease. HEART: ??Normal heart size. ??Trace pericardial effusion, unchanged. VASCULATURE: ??There is extensive coronary artery calcification. ??There is moderate calcified atherosclerosis of the thoracic aorta. ??No thoracic aortic aneurysm. ??The descending thoracic aorta is mildly ectatic measuring approximately up to 3.4 cm. AXILLA: ??No enlarged axillary lymph nodes. CHEST WALL: ??There is bilateral gynecomastia. HARDWARE/LINES/TUBES: ??None. UPPER ABDOMEN: ??No acute abnormality identified the imaged portions of the upper abdomen. ??There is nonspecific bilateral partly visualized perinephric stranding. ??Adrenal glands are unremarkable. ??There is diverticulosis of the imaged portions of the colon without evidence of diverticulitis within the imaged abdomen. MUSCULOSKELETAL: ??No acute fracture. ??No suspicious osseous lesion on bone windows. OTHER: ??No other significant abnormality. IMPRESSION: 1. ??Moderate biapical pleuroparenchymal scarring with moderate pulmonary emphysema which is upper lobe predominant. 2. ??A few new pulmonary nodules are seen within the base of the left lower lobe. ??Clustered appearance would favor inflammatory nodules. ??Given the patient's history of enhancing left renal mass and pulmonary emphysema, a short interval follow-up chest CT in 3 months is recommended. ??At that time attention to an 8 mm pulmonary nodule in the medial right upper lobe without substantial interval change in size. 3. ??Coronary artery calcification. 4. ??Findings consistent with chronic bronchitis with central bronchial wall thickening and areas of mild mucous plugging. THIS IS AN ELECTRONICALLY VERIFIED FINAL REPORT 01/08/2021 5:50 PM - Electronically signed by Rob Saucedo : D: ??01/08/2021 5:50 PM T: ??01/08/2021 5:50 PM Report ID: [id number] Reading Location: ??[id number] Procedure Note Rob Saucedo MD - 01/08/2021 [facility] Imaging Result Name: CLARITA JUAN Ordering Phys: ROYAL GRANT Age: 80 Date of : 1940 Accession Number: [id number] Date of Service: 01/07/2021 Gender: M EXAM DESCRIPTION: CT CHEST WO CONTRAST REASON FOR STUDY: Right breast lumpectomy, beginnings of COPD, and productive cough for the last few months.Duration: 3-4 months TECHNIQUE: CT scan of the chest performed without intravenous contrastusing helical scanning technique. Reconstructed coronal and sagittal MPRimages reviewed. All images stored on PACS. Automated exposure control was usedas a dose optimization technique for this examination. COMPARISON: CT chest 01/05/2020. 06/28/2020. The sensitivity for detection of solid visceral lesions is diminished without the use of intravenous contrast. LUNGS: There is moderate biapical pleuroparenchymal scarring. Moderatemixed centrilobular and paraseptal pulmonary emphysema. There are a couple ofnew clustered pulmonary nodules in the base of the left lower lobe the largestof which measures 8 mm on image 91. Interval development of these findingsfrom CT abdomen pelvis 10/12/2020 favors inflammatory nodularity possiblyrelated to bronchiolitis. There is central peribronchial thickening andlayering mucus in the right mainstem bronchus in keeping with chronic bronchitis. There is also mucous plugging in the posterior basilar segment of theright lower lobe. Trace atelectasis in the dependent lung bases. There is an 8mm nodule in the medial right upper lobe image 30 without significant changein size dating back to 01/05/2020. Unchanged couple 2 mm nodules anteriorright apex image 21. Stable 4 mm nodule right apex image 20. Stable 3 mm subpleural nodule left upper lobe image 33. PLEURA: No pleural effusion or pneumothorax. MEDIASTINUM/KRISTYN: Lack of IV contrast limits assessment for mediastinaland hilar lymphadenopathy. No enlarged mediastinal or hilar lymph nodes identified. There are calcified bilateral hilar lymph nodes in keepingwith old granulomatous disease. HEART: Normal heart size. Trace pericardial effusion, unchanged. VASCULATURE: There is extensive coronary artery calcification. Thereis moderate calcified atherosclerosis of the thoracic aorta. No thoracicaortic aneurysm. The descending thoracic aorta is mildly ectatic measuring approximately up to 3.4 cm. AXILLA: No enlarged axillary lymph nodes. CHEST WALL: There is bilateral gynecomastia. HARDWARE/LINES/TUBES: None. UPPER ABDOMEN: No acute abnormality identified the imaged portions ofthe upper abdomen. There is nonspecific bilateral partly visualizedperinephric stranding. Adrenal glands are unremarkable. There is diverticulosis ofthe imaged portions of the colon without evidence of diverticulitis withinthe imaged abdomen. MUSCULOSKELETAL: No acute fracture. No suspicious osseous lesion onbone windows. OTHER: No other significant abnormality. IMPRESSION: 1. Moderate biapical pleuroparenchymal scarring with moderate pulmonary emphysema which is upper lobe predominant. 2. A few new pulmonary nodules are seen within the base of the leftlower lobe. Clustered appearance would favor inflammatory nodules. Given the patient's history of enhancing left renal mass and pulmonary emphysema,a short interval follow-up chest CT in 3 months is recommended. At thattime attention to an 8 mm pulmonary nodule in the medial right upper lobewithout substantial interval change in size. 3. Coronary artery calcification. 4. Findings consistent with chronic bronchitis with central bronchialwall thickening and areas of mild mucous plugging. THIS IS AN ELECTRONICALLY VERIFIED FINAL REPORT 01/08/2021 5:50 PM - Electronically signed by Rob Saucedo : Report ID: [id number] Reading Location: [id number] Royal Lia Grant MD IMG CT PROCEDURES Final Result documented in this encounter Visit Diagnoses Diagnosis Solitary pulmonary nodule documented in this encounter Care Teams Oenologist Relationship Specialty Start Date End Date Cassius London MD [address] [place] [address] PCP - General 02/06/17 documented as of this encounter
--- OUTSIDE RECORDS SUMMARY | 2024-10-26 01:17 | XMS_ITS | Encounter Summary ---
Author Organization [facility] Address [address] [place] [address] Care Team Providers Care Financial Management Name Role Phone Cassius London MD Primary Care Provider + Reason for Referral * Diagnostic Imaging (Routine) - Closed Specialty Diagnoses / Procedures Referred By Italia t Referred To Contact Radiology Diagnoses Solitary pulmonary nodule Procedures CT Chest WO Contrast Andrey Uribe MD Phone: tel: fax: [address] [phone] Referral ID Status Reason Start Date Expiration Date Visits Re quested Visits Authorized [id number] Closed 03/03/2019 09/11/2020 1 1 E PLANNER Reason for Visit * Diagnostic Imaging (Routine) - Closed Specialty Diagnoses / Procedures Referred By Contswapna valles Referred To Contact Radiology Diagnoses Solitary pulmonary nodule Procedures CT Chest WO Contrast Andrey Uribe MD Phone: tel: fax: [address] [phone] Referral ID Status Reason Start Date Expiration Date Visits Re quested Visits Authorized [id number] Closed 03/03/2019 09/11/2020 1 1 Encounter Details Date Type Department Care Team (Latest Contact Info) Description 01/05/2020 8:05 AM STORE PLANNER - 01/05/2020 11:59 PM STORE PLANNER Hospital Encounter [facility] Imaging and Radiology [address] [place], [place] [id number] [place] [address] [facility] [address] [place], [place] [id number] Solitary pulmonary nodule Discharge Disposition: Discharge to [...] on file Legal Sex Male 1:17 PM STORE PLANNER Gender Identity Not on file Sexual Orientation Not on file documented as of this encounter Medications at Time of Discharge albuterol HFA (PROAIR HFA) 90 mcg/actuation inhaler inhale 2 puff by inhalation route every 4 - 6 hours as needed 1 Inhaler 1 09/25/2015 cholecalciferol (VITAMIN D-3) 5,000 unit tablet Take 1 tablet (5,000 Units total) by mouth daily. 90 tablet 07/29/2017 [id number] ic-vit K-lycop (ONE-A-DAY MEN'S MULTIVITAMIN) 400-20-300 mcg [...] CONTRAST Schedule Routine, Read Routine (OP Routine) 01/05/2020 8:32 AM STORE PLANNER Solitary pulmonary nodule documented in this encounter Results * CT Chest WO Contrast (01/05/2020 8:32 AM STORE PLANNER) Anatomical Region Laterality Modality Body N/A Computed Tomogra phy 01/05/2020 10:2 2 AM STORE PLANNER Impressions 01/05/2020 11:00 AM STORE PLANNER STABLE APPEARANCE WITH SEVERE COPD, SMALL PULMONARY AND PLEURAL-BASED DENSITIES UNCHANGED. ??CONTINUED 12 MONTH FOLLOW-UP. Electronically signed by: Alhaji Holm M.D. Narrative 01/05/2020 11:00 AM STORE PLANNER EXAMINATION: CT CHEST WO CONTRAST ORDER DATE: 01/05/2020 9:00 AM HISTORY: 79-year-old man history of a pulmonary nodule for follow-up. ??History of a skin basal cell carcinoma, hypertension, COPD. ??Former smoker. Hyperlipidemia. TECHNIQUE: Spiral noncontrast CT with multiplanar reconstructions FINDINGS: Comparison with multiple priors most recently dated 03/03/2019. Traveling Construction Superintendent radiograph once again demonstrates COPD. ??Biapical fibrosis suggested. ??Transaxial images reviewed at lung windows demonstrates extensive interstitial lung disease fibrosis scarring and opacification of the lung apices similar to previous. ??Pleural-based densities stable. ??Centrilobular and paraseptal emphysema are seen. There is a stable pleural plaque in the mid axillary line in the left upper lung image #23 with the base measurement of 11.9 mm and a height of 6.7 mm the previously described nodule in the right upper lung posterior medially appears to be stable seen on current examination image #27 measures long axis IX mm, short axis VII mm. Pleural-based nodule in the left upper lung anterolaterally image #33 is stable at 3 mm. ??No new pulmonary nodules are seen. ??Small groundglass infiltrate persists at the right lung base posteriorly. Mediastinal windows demonstrate no adenopathy. ??Small lymph nodes in the aortic pulmonic window stable since previous. ??Mild aortic atherosclerosis. ??Old granulomatous disease. ??Coronary artery calcifications. ??Normal heart size. ??Normal adrenal glands. Degeneration thoracic spine Procedure Note Alhaji Holm MD - 01/05/2020 EXAMINATION: CT CHEST WO CONTRAST ORDER DATE: 01/05/2020 9:00 AM HISTORY: 79-year-old man history of a pulmonary nodule for follow-up. History of a skin basal cell carcinoma, hypertension, COPD. Former smoker. Hyperlipidemia. TECHNIQUE: Spiral noncontrast CT with multiplanar reconstructions FINDINGS: Comparison with multiple priors most recently dated 03/03/2019. Traveling Construction Superintendent radiograph once again demonstrates COPD. Biapical fibrosis suggested. Transaxial images reviewed at lung windows demonstrates extensive interstitial lung disease fibrosis scarring and opacification of the lung apices similar to previous. Pleural-based densities stable. Centrilobular and paraseptal emphysema are seen. There is a stable pleural plaque in the mid axillary line in the left upper lung image #23 with the base measurement of 11.9 mm and a height of 6.7 mm the previously described nodule in the right upper lung posterior medially appears to be stable seen on current examination image #27 measures long axis IX mm, short axis VII mm. Pleural-based nodule in the left upper lung anterolaterally image #33 is stable at 3 mm. No new pulmonary nodules are seen. Small groundglass infiltrate persists at the right lung base posteriorly. Mediastinal windows demonstrate no adenopathy. Small lymph nodes in the aortic pulmonic window stable since previous. Mild aortic atherosclerosis. Old granulomatous disease. Coronary artery calcifications. Normal heart size. Normal adrenal glands. Degeneration thoracic spine IMPRESSION: STABLE APPEARANCE WITH SEVERE COPD, SMALL PULMONARY AND PLEURAL-BASED DENSITIES UNCHANGED. CONTINUED 12 MONTH FOLLOW-UP. Electronically signed by: Alhaji Holm M.D. Andrey Uribe MD IM CT PROCEDURES Marah l Result documented in this encounter Visit Diagnoses Diagnosis Solitary pulmonary nodule documented in this encounter Care Teams Financial Management Relationship Specialty Start Date End Date Cassius London MD [address] [place] [address] PCP - General 02/06/17 documented as of this encounter
--- OUTSIDE RECORDS SUMMARY | 2024-10-26 01:17 | XMS_ITS | Encounter Summary ---
Author Organization [facility] Address [address] [place] [address] Care Team Providers Care Lead Manufacturing Engineering Tech Name Role Phone Cassius London MD Primary Care Provider + Reason for Referral * MRI/CAT/PET Scan (Routine) - Closed Specialty Diagnoses / Procedures Referred By Contac t Referred To Contact Radiology Diagnoses Other specified disorders of kidney and ureter Procedures CT Abdomen W WO Contrast Sourav Veronica MD [address] [place] [id number] Phone: tel: fax: [address] [phone] Referral ID Status Reason Start Date Expiration Date Visits Re quested Visits Authorized [id number] Closed 05/29/2021 06/28/2022 1 1 Reason for Visit * MRI/CAT/PET Scan (Routine) - Closed Specialty Diagnoses / Procedures Referred By Contac t Referred To Contact Radiology Diagnoses Other specified disorders of kidney and ureter Procedures CT Abdomen W WO Contrast Sourav Veronica MD [address] [place] [address] Phone: tel: fax: [address] [phone] Referral ID Status Reason Start Date Expiration Date Visits Re quested Visits Authorized [id number] Closed 05/29/2021 06/28/2022 1 1 Encounter Details Date Type Department Care Team (Late st Contact Info) Description 06/17/2021 8:30 AM CDT - 06/17/2021 11:59 PM CDT Hospital Encounter [facility] [address] [place] [address] Sourav Veronica MD [address] [place] [id number] Other specified disorders of kidney and ureter Discharge Disposition: Discharge to home or self care Social History Tobacco Use Types Packs/Day Years Used Date Smoking Tobacco: Former Cigarettes Q uit: 2011 Smokeless Tobacco: Never Alcohol Use Standard Drinks/Week Comments No 0 (1 standard drink = 0.6 oz pur e alcohol) Sex and Gender Information Value Date Recorded Sex Assigned at Not on file 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 90 tablet 07/29/2017 [id number] ic-vit K-lycop (ONE-A-DAY MEN'S MULTIVITAMIN) 400-20-300 mcg [...] Priority Date/Time Associated Diagnosis Comments CT ABDOMEN W WO CONTRAST Schedule Routine, Read Routine (OP Routine) 06/17/2021 9:16 AM CDT Other specified disorders of kidney and ureter CREATININE, WHOLE BLOOD STAT 06/17/2021 6:28 AM CDT documented in this encounter Results * CT Abdomen W WO Contrast (06/17/2021 9:16 AM CDT) Anatomical Region Laterality Modality Body N/A Computed Tomogra phy 06/17/2021 10:1 1 AM CDT Narrative 06/17/2021 10:22 AM CDT EXAM DESCRIPTION: ?? CT ABDOMEN W WO CONTRAST REASON FOR STUDY: ?? F/u to abnormal findings on CT done 10/28. ??100ml of Optiray 320, 20g iv lt acDuration: 10/28 TECHNIQUE: ??CT scan of the abdomen performed without and with intravenous and ?? without oral contrast using helical scanning technique with dynamic intravenous contrast injection. Reconstructed coronal and sagittal MPR images reviewed. All images stored on PACS. Automated exposure control was used as a dose optimization technique for this examination. CONTRAST TYPE/DOSE: ?? 100 of optiray 320 injected via ??lt ac COMPARISON: ?? 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 LIVER: ??Normal size. ??No identified cystic or solid masses. GALLBLADDER: ??Normal. BILE DUCTS: ??No intrahepatic or extrahepatic ductal dilatation. SPLEEN: ??Otherwise normal. PANCREAS: ??No identified cystic or solid masses. No significant calcifications. No adjacent inflammation or peripancreatic fluid collections. Pancreatic duct not dilated. ADRENALS: ??Normal. KIDNEYS/URINARY TRACT: ??Again there is a enhancing nodule in the upper pole of the left kidney which measures 18 by 17 mm, previously 17 x 19 mm, similar to prior given differences in technique. ??It is predominantly endophytic and seen on series 3, image 38. A predominantly exophytic enhancing lesion arising from the lower pole of the left kidney measures 20 by 19 mm, previously 19 by 19 mm, within differences in technique. Several other cysts are seen within both kidneys without enhancement. ?? A tiny lesion measuring 7 mm in the interpolar region of the right kidney seen on image 48 series 3 has some subtle internal enhancement of a thin septation. GI: ??There is diverticulosis, moderate in severity. ??No evidence of obstruction. ??No bowel wall thickening. PERITONEUM: ??No ascites or free air. RETROPERITONEUM: ??No adenopathy. VASCULATURE: ??Atherosclerosis is seen in the great vessels, ??moderate in severity. MUSCULOSKELETAL: ??The change from posterior decompression of the lower lumbar spine. ??There is spondylosis in the visualized spine, moderate in severity. OTHER: ??No other significant abnormality. IMPRESSION: ?? 1. ??No change in 2 enhancing lesions in the left kidney very suspicious for renal cell carcinoma. 2. ??Tiny 7 mm cyst within the interpolar region of the right kidney is indeterminate with a subtle enhancing thin septation. ??Bosniak 2 Fahrenheit. ?? Recommend continued attention on follow-up. THIS IS AN ELECTRONICALLY VERIFIED FINAL REPORT 06/17/2021 10:22 AM - Electronically signed by Gold Hernandez M.D. KN: [email or web address] D: ??06/17/2021 10:22 AM T: ??06/17/2021 10:22 AM Report ID: [id number] Reading Location: ??[id number] Procedure Note Gold Hernandez MD - 06/17/2021 EXAM DESCRIPTION: CT ABDOMEN W WO CONTRAST REASON FOR STUDY: F/u to abnormal findings on CT done 10/28. 100ml of Optiray 320, 20g iv lt acDuration: 10/28 TECHNIQUE: CT scan of the abdomen performed without and with intravenousand without oral contrast using helical scanning technique with dynamic intravenous contrast injection. Reconstructed coronal and sagittal MPRimages reviewed. All images stored on PACS. Automated exposure control was usedas a dose optimization technique for this examination. 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 LIVER: Normal size. No identified cystic or solid masses. GALLBLADDER: Normal. BILE DUCTS: No intrahepatic or extrahepatic ductal dilatation. SPLEEN: Otherwise normal. PANCREAS: No identified cystic or solid masses. No significant calcifications. No adjacent inflammation or peripancreatic fluidcollections. Pancreatic duct not dilated. ADRENALS: Normal. KIDNEYS/URINARY TRACT: Again there is a enhancing nodule in the upperpole of the left kidney which measures 18 by 17 mm, previously 17 x 19 mm, similarto prior given differences in technique. It is predominantly endophytic andseen on series 3, image 38. A predominantly exophytic enhancing lesion arising from the lower pole ofthe left kidney measures 20 by 19 mm, previously 19 by 19 mm, withindifferences in technique. Several other cysts are seen within both kidneys without enhancement. A tiny lesion measuring 7 mm in the interpolar region of the right kidneyseen on image 48 series 3 has some subtle internal enhancement of a thinseptation. GI: There is diverticulosis, moderate in severity. No evidence of obstruction. No bowel wall thickening. PERITONEUM: No ascites or free air. RETROPERITONEUM: No adenopathy. VASCULATURE: Atherosclerosis is seen in the great vessels, moderate in severity. MUSCULOSKELETAL: The change from posterior decompression of the lowerlumbar spine. There is spondylosis in the visualized spine, moderate inseverity. OTHER: No other significant abnormality. IMPRESSION: 1. No change in 2 enhancing lesions in the left kidney very suspiciousfor renal cell carcinoma. 2. Tiny 7 mm cyst within the interpolar region of the right kidney is indeterminate with a subtle enhancing thin septation. Lilliana 2Fahrenheit. Recommend continued attention on follow-up. THIS IS AN ELECTRONICALLY VERIFIED FINAL REPORT 06/17/2021 10:22 AM - Electronically signed by Gold Hernandez M.D. KN: [email or web address] Report ID: [id number] Reading Location: [id number] Sourav Veronica MD IMG CT PROCEDURES Final Result * (ABNORMAL) Creatinine, whole blood (06/17/2021 6:28 AM CDT) Creatinine, bld 1.44(H) 0.60 - 1.30 mg/dL NNEKA PICHARDO (JARALES) Blood specimen (specimen) 06/17/2021 6:28 AM CDT 06/17/2021 8:00 AM CDT Sourav Veronica MD LAB BLOOD ORDERABLES Fi nal Result NNEKA PICHARDO (JARALES) [address] [facility] [place] [address] documented in this encounter Visit Diagnoses Diagnosis Other specified disorders of kidney and ureter documented in this encounter Administered Medications Inactive Administered Medications - up to 3 most recent administrations Medication Order MAR Action Action Date Dose Rate Site ioversoL (OPTIRAY 320) injection 100 mL 100 mL, intravenous, Once in imaging, contrast, Starting on 06/17/21 at 0843, For 1 dose Contrast Given 06/17/2021 9:01 AM CDT 100 mL documented in this encounter Care Teams Lead Manufacturing Engineering Tech Relationship Specialty Start Date End Date Cassius London MD [address] [place] [address] PCP - General 02/06/17 documented as of this encounter
--- OUTSIDE RECORDS SUMMARY | 2024-10-26 01:17 | XMS_ITS | Encounter Summary ---
Author Organization [facility] Healthcare Address [address] [place] [address] Care Team Providers Care Director Of Parks And Recreation Name Role Phone Cassius London MD Primary Care Provider + Reason for Visit * Reason Comments Dizziness Encounter Details Date Type Department Care Team (Late st Contact Info) Description 01/18/2022 5:40 PM SAMPLE [facility]WYER - 01/18/2022 7:38 PM SAMPLE [facility] Emergency [facility] Emergency Department [address] [place] [address] Luis E Chin MD [address] [address] Vertigo (Primary Dx) Discharge Disposition: Discharge to home or self care Social History Tobacco Use Types Packs/Day Years Used Date Smoking Tobacco: Former Cigarettes Q uit: 2011 Smokeless Tobacco: Never Alcohol Use Standard Drinks/Week Comments No 0 (1 standard drink = 0.6 oz pur e alcohol) Sex and Gender Information Value Date Recorded Sex Assigned at Not on file Legal Sex Male 1:17 PM S[facility] Gender Identity Not on file Sexual Orientation Not on file documented as of this encounter Last Filed Vital Signs Vital Sign Reading Time Taken Comments Blood Pressure 139/79 01/18/2022 7:15 PM S[facility]ER Pulse 87 01/18/2022 7:15 PM [facility] Temperature 36.2 ??C (97.2 ??F) 01/18/2022 5:37 PM CS T Respiratory Rate 20 01/18/2022 7:15 PM SAMPLE [facility]WYER Oxygen Saturation 93% 01/18/2022 7:15 PM SAMPLE [facility] Inhaled Oxygen Concentration - - Weight 86.2 kg (190 lb) 01/18/2022 5:37 PM SAMPLE [facility]ER Height 170.2 cm (5' 7 ) 01/18/2022 5:37 PM SAMPLE [facility] Body Mass Index 29.76 01/18/2022 5:37 PM SAMPLE [facility] documented in this encounter Discharge Diagnoses Diagnosis Dizziness and giddiness - DIZZINESS AND GIDDINESS Essential (primary) hypertension - ESSENTIAL (PRIMARY) HYPERTENSION Unspecified essential hypertension Mixed hyperlipidemia - MIXED HYPERLIPIDEMIA Personal history of nicotine dependence - PERSONAL HISTORY OF NICOTINE DEPENDENCE Personal history of malignant neoplasm of prostate - PERSONAL HISTORY OF MALIGNANT NEOPLASM OF PROSTATE documented in this encounter Discharge Instructions * Discharge Instructions* Luis E Chin MD - 01/18/2022 7:17 PM S[facility] Take medications as prescribed , fall precautions, follow with our doctot . LE SAWYER * Attachments The following attachments cannot be sent through Care Everywhere. * Vertigo (Tube Rebuilder) (Emirati) documented in this encounter Medications at Time of Discharge albuterol HFA (PROAIR HFA) 90 mcg/actuation inhaler inhale 2 puff by inhalation route every 4 - 6 hours as needed 1 Inhaler 1 09/25/2015 cholecalciferol (VITAMIN D-3) 5,000 unit tablet Take 1 tablet (5,000 Units total) by mouth daily. 90 tablet 07/29/2017 docusate sodium (Colace) 100 mg capsuleIndicatio ns:constipation Take 1 capsule (100 mg total) by mouth 2 (two) times a day for 14 days 28 capsule 2 01/24/2022 montelukast (SINGULAIR) 10 mg tablet Take 1 tablet (10 mg total) by mouth nightly 09/09/2021 [id number] ic-vit K-lycop (ONE-A-DAY MEN'S MULTIVITAMIN) 400-20-300 mcg tablet Take one by mouth one time per day 0 0 08/23/2008 ondansetron (ZOFRAN) 4 mg tablet Take 1 tablet (4 mg total) by mouth every 6 (six) hours as needed for nausea or vomiting for up to 14 days 30 tablet 01/24/2022 2 aspirin 81 mg chewable tablet chew 1 tablet by oral route every day 0 0 2015 3 calcium carbonate (OS-PINEDA) 1,500 mg (600 mg of elemental calcium) tablet Take 1 tablet (1,500 mg total) by mouth daily. 30 tablet 07/29/2017 3 fluorouraciL (EFUDEX) 5 % cream Apply topically 2 (two) times a day For 6 weeks 40 g 1 12/14/2020 2 irbesartan-hydro chlorothiazide (AVALIDE) 150-12.5 mg per tablet 07/16/2021 3 meclizine (ANTIVERT) 12.5 mg tablet Take 1 tablet (12.5 mg total) by mouth 3 (three) times a day as needed for dizziness 30 tablet 01/18/2022 4 ondansetron (ZOFRAN) 4 mg tablet Take 1 tablet (4 mg total) by mouth every 6 (six) hours 12 tablet 01/18/2022 4 simvastatin (ZOCOR) 40 mg tablet TAKE ONE [...] needed for pain 25 tablet 01/24/2022 4 Trelecatherine Ellipta 100-62.5-25 mcg inhaler TAKE 1 INHALATION BY MOUTH DAILY 08/28/2021 3 documented as of this encounter Ordered Prescriptions Prescription Sig Dispense Quantity Refills Last Filled Start Date End Date ondansetron (ZOFRAN) 4 mg tablet Take 1 tablet (4 mg total) by mouth every 6 (six) hours 12 tablet 01/18/2022 4 meclizine (ANTIVERT) 12.5 mg tablet Take 1 tablet (12.5 mg total) by mouth 3 (three) times a day as needed for dizziness 30 tablet 01/18/2022 4 documented in this encounter Discharge Disposition Disposition Code Departure Means Destination Comment s Discharge to home or self care Pt left the ED in stable condition with documented in this encounter ED Notes * Luis E Chin MD - 01/18/2022 7:22 PM CST HPI Chief Complaint Patient presents with ??? Dizziness 81-year-old with a history of hypertension, hyperlipidemia here with the complaints of sudden onsetof dizziness associated with nausea and vomiting. Patient states that he was off balance. He deniedany chest pain, abdominal pain. States that every time he turns his head he gets dizzy Patient History: Patient Active Problem List Diagnosis Date Noted ??? Inguinal hernia without obstruction or gangrene 12/19/2021 ??? 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 Diarrhea 05/16/2020 ??? Personal history of colonic polyps 05/16/2020 ??? Basal cell carcinoma of lower leg, right 05/01/2019 ??? Sebaceous cyst 08/27/2017 ??? Healthcare maintenance 08/12/2017 ??? Medication management 08/12/2017 ??? Diastasis of rectus abdominis 08/12/2017 ??? Umbilical hernia without obstruction and without gangrene 08/12/2017 ??? Former smoker, stopped smoking many years ago 08/12/2017 ??? Chronic obstructive pulmonary disease with acute exacerbation (CMS/HCC) (HCC) 06/05/2014 ??? Elevated prostate specific antigen (PSA) 06/05/2014 ??? Hyperlipidemia 03/25/2014 ??? Hypersomnia 03/25/2014 ??? Vitamin D deficiency 03/25/2014 ??? Benign hypertension 03/25/2014 Past Medical History: Diagnosis Date ??? Asbestosis [...] MEDICAL diastasis recti ??? HX OTHER MEDICAL 2003 diverticular bleed ??? HX OTHER MEDICAL 2012 Prostate biopsy ??? Hypertension Hypertension ??? Mixed hyperlipidemia ??? 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 Polyp of colon colon polyps Past Surgical History: Procedure Laterality Date ??? BACK SURGERY back surgery x 3 ??? BREAST LUMPECTOMY Right Benign / done years ago / ??? COLONOSCOPY 08/12/2016 ??? HERNIA REPAIR Hernia repair ??? OTHER SURGICAL HISTORY s/p HNP L spine Family History Problem Relation Age of Onset ??? Dementia Mother 87 Dementia; ??? Cancer Mother 87 cancer; ??? Other Father hx not provided; ??? Cancer Brother 60 Cancer -; ??? Bone cancer Brother ??? Brain cancer Brother 62 Cancer -brain; ??? Lung cancer Brother 62 Cancer -lung; ??? Lung cancer Sister Cancer, lung; ??? Brain cancer Sister Social History Tobacco Use ??? Smoking status: Former Smoker Quit date: 2011 Years since quittin.2 ??? Smokeless tobacco: Never Used Substance Use Topics ??? Alcohol use: No ??? Drug use: No Social History Social History Narrative ??? Not on file Review of Systems Review of Systems Constitutional: Negative. HENT: Negative. Respiratory: Negative. Cardiovascular: Negative. Gastrointestinal: Positive for nausea and vomiting. Endocrine: Negative. Genitourinary: Negative. Musculoskeletal: Negative. Neurological: Positive for dizziness. Hematological: Negative. Psychiatric/Behavioral: Negative. Physical Exam ED Triage Vitals Temp Pulse Resp BP SpO2 01/18/22 1737 01/18/22 1737 01/18/22 1737 01/18/22 1738 01/18/22 1737 36.2 ??C (97.2 ??F) 80 16 155/78 95 % Temp src Heart Rate Source Patient Position BP Location FiO2 (%) -- -- -- -- -- Physical Exam Vitals and nursing note reviewed. Constitutional: Appearance: Normal appearance. HENT: Head: Normocephalic and atraumatic. Nose: Nose normal. Cardiovascular: Rate and Rhythm: Normal rate and regular rhythm. Pulmonary: Effort: Pulmonary effort is normal. Breath sounds: Normal breath sounds. Abdominal: Palpations: Abdomen is soft. Musculoskeletal: General: Normal range of motion. Cervical back: Normal range of motion. Skin: General: Skin is warm. Neurological: General: No focal deficit present. Mental Status: He is alert and oriented to person, place, and time. Psychiatric: Mood and Affect: Mood normal. Results for orders placed or performed during the hospital encounter of 01/18/22 CBC with auto differential Result Value Ref Range WBC 9.9 3.8 - 9.9 K/cumm Hgb 15.0 13.0 - 17.5 g/dL Hct 44.0 38.9 - 50.3 % Plt 258 150 - 400 K/cumm MPV 9.4 9.1 - 12.3 fL RBC 4.67 4.30 - 5.80 M/cumm MCV 94.2 81.3 - 96.4 fL MCH 32.1 27.1 - 33.3 pg MCHC 34.1 32.3 - 35.7 g/dL RDW CV 13.0 11.1 - 14.9 % RDW SD 44.8 35.7 - 48.1 fL NRBC abs 0.00 0.00 - 0.01 K/cumm Comprehensive metabolic panel Result Value Ref Range Sodium 136 135 - 145 mmol/L Potassium, pl 4.0 3.3 - 4.9 mmol/L Chloride 97 97 - 110 mmol/L CO2 29 22 - 32 mmol/L Anion gap 10 2 - 15 mmol/L BUN 25 8 - 25 mg/dL Creatinine 1.19 0.80 - 1.30 mg/dL Glucose 113 70 - 199 mg/dL Calcium 9.4 8.5 - 10.3 mg/dL Bilirubin, total 0.3 0.1 - 1.2 mg/dL Protein, pl 6.9 6.5 - 8.5 g/dL Albumin 4.0 3.5 - 5.0 g/dL Alk phos 88 40 - 130 Units/L ALT 12 7 - 55 Units/L AST 18 10 - 50 Units/L Troponin T high-sensitivity series (baseline, 2hr, 4hr, 6hr) Result Value Ref Range Trop T hs 13 <=22 ng/L Differential, auto Result Value Ref Range Neutrophil abs 6.2 1.7 - 6.5 K/cumm Imm gran abs 0.0 0.0 - 0.1 K/cumm Lymphocyte abs 2.8 0.8 - 3.3 K/cumm Monocyte abs 0.6 0.2 - 0.8 K/cumm Eosinophil abs 0.2 0.0 - 0.5 K/cumm Basophil abs 0.0 0.0 - 0.1 K/cumm Neutrophil pct 62.8 % Imm gran pct 0.3 % Lymphocyte pct 28.3 % Monocyte pct 6.3 % Eosinophil pct 1.9 % Basophil pct 0.4 % eGFR Result Value Ref Range eGFR 62 mL/min/1.73 m2 MDM MDM 81-year-old with a history of hypertension, hyperlipidemia with sudden onset of dizziness associated with nausea and vomiting suspect more benign positional vertigo his EKG was unremarkable had no neurological deficit. Will give him IV fluids , meclizine and IV Reglan. ED Course as of 01/18/221924 Time: 01/18 1909 Comment: Pt feeling much better , informed about his lab work , EKG , he was able to ambulate in the ER without dizziness , feels comfortable going home. By: Luis E Chin MD Final diagnoses: Vertigo Luis E Chin MD 01/18/221924 LE [facility]ER * Camille Cross RN - 01/18/2022 5:36 PM CST Pt presents to ER with c/o dizziness x 1.5 hours. Pt reports nausea. Pt almost fell earlier due to the dizziness. LE [facility]ER documented in this encounter Miscellaneous Notes * ED Procedure Note - Luis E Chin MD - 01/18/2022 6:05 PM CSTAssociated Order(s): ECG 12 lead Procedure ECG 12 lead Date/Time: 01/18/2022 6:05 PM Performed by: Luis E Chin MD Authorized by: Luis E Chin MD Rate: ECG rate: 78 ECG rate assessment: normal Rhythm: Rhythm: sinus rhythm Ectopy: Ectopy: none QRS: QRS axis: Normal QRS intervals: Normal Conduction: Conduction: normal ST segments: ST segments: Normal T waves: T waves: normal Interpretation: Interpretation: normal Luis E Chin MD 01/18/221805 LE [facility]ER documented in this encounter Plan of Treatment Not on file documented as of this encounter Procedures Procedure Name Priority Date/Time Associated Diagnosis Comments ECG 12-LEAD STAT 01/18/2022 5:56 PM [facility] TROPONIN T HIGH-SENSITIVITY SERIES (BASELINE, 2HR, 4HR, 6HR) STAT 01/18/2022 5:52 PM [facility] EGFR STAT 01/18/2022 5:52 PM [facility] DIFFERENTIAL AUTO STAT 01/18/2022 5:5 2 PM [facility] CBC WITH AUTO DIFFERENTIAL STAT 01/18/2022 5:52 PM [facility] COMPREHENSIVE METABOLIC PANEL STAT 01/18/2022 5:52 PM S[facility] documented in this encounter Results * ECG 12 lead (01/18/2022 5:56 PM SAMPLE SAWYER) 01/18/2022 5:56 PM [facility] Narrative [facility] - 01/20/2022 10:05 AM CDT Vent Rate: 78 bpm RR Interval: 768 msec FL Interval: 136 msec QRS Duration: 110 msec QT Interval: 352 msec QTC Interval: 385 msec P-R-T [place]: 27 - -19 - 77 degrees SINUS RHYTHM with PVCs NORMAL ECG Electronically Signed By: Reji Maloney MD us Luis E Chin MD ECG ORDERABLES Final Result [facility] * eGFR (01/18/2022 5:52 PM SAMPLE [facility]WYER) eGFR 62 mL/min/1. 73 m2 [facility] ([place]) Comment: Interpretive Data Reference Interval Normal ?>/= [...] interpretive data was last reviewed 2021. Blood 01/18/2022 5:52 PM [facility] 01/18/2022 5:56 PM SAMPLE [facility]ER us Luis E Chin MD LAB BLOOD ORDERABLES Final Res ult [facility] ([place]) 1 [facility] [place] [address] * Differential, auto (01/18/2022 5:52 PM SAMPLE SAWYER) [facility] Neutrophil abs 6.2 1.7 - 6.5 K/cumm [facility] ([place]) Imm gran abs 0.0 0.0 - 0.1 K/cumm [facility] ([place]) Lymphocyte abs 2.8 0.8 - 3.3 K/cumm [facility] ([place]) Monocyte abs 0.6 0.2 - 0.8 K/cumm [facility] ([place]) Eosinophil abs 0.2 0.0 - 0.5 K/cumm [facility] ([place]) Basophil abs 0.0 0.0 - 0.1 K/cumm [facility] ([place]) Neutrophil pct 62.8 % [facility] ([place]) Comment: Interpretive Data Percent cell count reference ranges are not reported, since discordance with absolute values may lead to misinterpretation of CBC data. Current Interpretive Data was last revised on 2018. Imm gran pct 0.3 % [facility] ([place]) Comment: Interpretive Data Percent cell count reference ranges are not reported, since discordance with absolute values may lead to misinterpretation of CBC data. Current Interpretive Data was last revised on 2018. Lymphocyte pct 28.3 % [facility] ([place]) Comment: Interpretive Data Percent cell count reference ranges are not reported, since discordance with absolute values may lead to misinterpretation of CBC data. Current Interpretive Data was last revised on 2018. Monocyte pct 6.3 % [facility] ([place]) Comment: Interpretive Data Percent cell count reference ranges are not reported, since discordance with absolute values may lead to misinterpretation of CBC data. Current Interpretive Data was last revised on 2018. Eosinophil pct 1.9 % [facility] ([place]) Comment: Interpretive Data Percent cell count reference ranges are not reported, since discordance with absolute values may lead to misinterpretation of CBC data. Current Interpretive Data was last revised on 2018. Basophil pct 0.4 % [facility] ([place]) Comment: Interpretive Data Percent cell count reference ranges are not reported, since discordance with absolute values may lead to misinterpretation of CBC data. Current Interpretive Data was last revised on 2018. Blood 01/18/2022 5:52 PM [facility] 01/18/2022 5:56 PM [facility] us Luis E Chin MD LAB BLOOD ORDERABLES Final Res ult [facility] ([place]) [address] [facility] Department of [employer] [place] [address] * Troponin T high-sensitivity series (baseline, 2hr, 4hr, 6hr) (01/18/2022 5:52 PM [facility]) Trop T hs 13 <=22 ng/L [facility] ([place]) Comment: Interpretive Data For further hscTnT resources including the diagnostic algorithm and an aid in interpretation, copy and paste this link: https://nrl.testcatalog.org/show/hsTrop Current Interpretive Data last revised 2020. Blood 01/18/2022 5:52 PM [facility] 01/18/2022 5:56 PM SAMPLE [facility]ER us Luis E Chin MD LAB BLOOD ORDERABLES Final Res ult [facility] ([place]) [address] [facility] [place] [address] * Comprehensive metabolic panel (01/18/2022 5:52 PM SAMPLE SAWYER) Pathologist [facility] Sodium 136 135 - 145 mmol/L [facility] ([place]) Potassium, pl 4.0 3.3 - 4.9 mmol/L [facility] ([place]) Chloride 97 97 - 110 mmol/L [facility] ([place] CO2 29 22 - 32 mmol/L [facility]) Anion gap 10 2 - 15 mmol/L [facility] ([place]) BUN 25 8 - 25 mg/dL [facility] ([place]) Creatinine 1.19 0.80 - 1.30 mg/dL [facility] ([place]) Glucose 113 70 - 199 mg/dL [facility] ([place]) Comment: Interpretive Data Fasting glucose [...] classification and Diagnosis of Diabetes Diabetes Care 2017;40 (Suppl. 1):S11. Current interpretive data was last revised 2017. Calcium 9.4 8.5 - 10.3 mg/dL [facility] ([place]) Bilirubin, total 0.3 0.1 - 1.2 mg/dL [facility] ([place]) Protein, pl 6.9 6.5 - 8.5 g/dL [facility] ([place]) Albumin 4.0 3.5 - 5.0 g/dL [facility] ([place]) Alk phos 88 40 - 130 Units/L [facility] ([place]) ALT 12 7 - 55 Units/L [facility] ([place]) AST 18 10 - 50 Units/L [facility] ([place]) Comment: Hemolysis present. ??Results may be affected. Slightly Hemolyzed Specimen Blood 01/18/2022 5:52 PM SAMPLE [facility]ER 01/18/2022 5:56 PM S[facility] us Luis E Chin MD LAB BLOOD ORDERABLES Final Res ult [facility] ([place]) [address] [facility] [place] [address] * CBC with auto differential (01/18/2022 5:52 PM SAMPLE [facility]ER) WBC 9.9 3.8 - 9.9 K/cumm [facility] ([place]) Hgb 15.0 13.0 - 17.5 g/dL [facility] ([place]) Hct 44.0 38.9 - 50.3 % [facility] ([place]) Plt 258 150 - 400 K/cumm [facility] ([place]) MPV 9.4 9.1 - 12.3 fL [facility] ([place]) RBC 4.67 4.30 - 5.80 M/cumm [facility] ([place]) MCV 94.2 81.3 - 96.4 fL [facility] ([place]) MCH 32.1 27.1 - 33.3 pg [facility] ([place]) MCHC 34.1 32.3 - 35.7 g/dL [facility] ([place]) RDW CV 13.0 11.1 - 14.9 % [facility] ([place]) RDW SD 44.8 35.7 - 48.1 fL [facility] ([place]) NRBC abs 0.00 0.00 - 0.01 K/cumm [facility] ([place]) Blood 01/18/2022 5:52 PM SAMPLE [facility]ER 01/18/2022 5:56 PM SAMPLE [facility]ER us Luis E Chin MD LAB BLOOD ORDERABLES Final Res ult [facility] ([place]) 1 [facility] [place] [address] documented in this encounter Visit Diagnoses Diagnosis Vertigo- Primary Dizziness and giddiness documented in this encounter Administered Medications Inactive Administered Medications - up to 3 most recent administrations Medication Order MAR Action Action Date Dose Rate Site meclizine (ANTIVERT) tablet 25 mg 25 mg, oral, Once, On 01/18/22 at 1817, For 1 dose Given 01/18/2022 6:23 PM [facility]ER 25 mg metoclopramide (REGLAN) injection 5 mg 5 mg, intravenous, Administer over 1 Minutes, Once, On 01/18/22 at 1817, For 1 dose Given 01/18/2022 6:22 PM [facility]AMPLE [facility]ER 5 mg sodium chloride 0.9% infusion 125 mL/hr, intravenous, Continuous, Starting on 01/18/22 at 1817 New Bag 01/18/2022 6:22 PM SAMPLE [facility]WYER 125 mL/hr 125 mL/hr documented in this encounter Active and Recently Administered Medications Times are shown in SAMPLE [facility]. Scheduled Medication Order 01/16/2022 01/17/2022 01/18/2022 meclizine (ANTIVERT) tablet 25 mg (COMPLETED) 25 mg, oral, Once, On 01/18/22 at 1817, For 1 dose 1822 (Given - Provid er: Gail Escalera RN) metoclopramide (REGLAN) injection 5 mg (COMPLETED) 5 mg, intravenous, Administer over 1 Minutes, Once, On 01/18/22 at 1817, For 1 dose 1821 (Given - Provid er: Gail Escalera RN) Continuous Medication Order 01/16/2022 01/17/2022 01/18/2022 sodium chloride 0.9% infusion 125 mL/hr, intravenous, Continuous, Starting on 01/18/22 at 1817 1822 (New Bag - Prov ider: Gail Escalera RN)1949 (Stopped - Provider: Alexander Hobson RN) documented in this encounter Care Teams Director Of Parks And Recreation Relationship Specialty Start Date End Date Cassius London MD [address] [place] [address] PCP - General 02/06/17 documented as of this encounter
--- OUTSIDE RECORDS SUMMARY | 2024-10-26 01:17 | XMS_ITS | Encounter Summary ---
Author Organization 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 - 01/15/2023 12:03 PM [employer]ER Hospital Encounter [facility] [address] [place] [address] Vanesa Daniels MD [address] [place] [address] Sweetie Castillo MD [address] [place] [address] [place] [address] Diomedes Cortez MD [address] [place] [address] [place] [address] Donna Escoto MD [address] [place] [address] [place] [address] COPD exacerbation (CMS/HCC) (HCC) (Primary Dx); Hypoxemia; Acute kidney injury (CMS/HCC) (HCC); Leukocytosis, unspecified type Discharge Disposition: Discharge to home [...] chur ch or oriental orthodox services? Never 01/12/2023 Do you belong to any clubs o r organizations such as advent groups, unions, fraternal or athletic groups, or [...] place to sleep or slept in a fpc (including now)? No 01/12/2023 Sex and Gender Information Value Date Recorded Sex Assigned at Not on file Legal Sex Male 1:17 PM [employer] Gender Identity Not on file Sexual Orientation Not on file documented as of this encounter Last Filed Vital Signs Vital Sign Reading Time Taken Comments Blood Pressure 142/77 01/15/2023 11:16 AM [employer] Pulse 64 01/15/2023 11:16 AM [employer] Temperature 36.2 ??C (97.2 ??F) 01/15/2023 11:[address] Respiratory Rate 18 01/15/2023 11:16 AM [employer]ER Oxygen Saturation 95% 01/15/2023 11:16 AM [employer] SERVER Inhaled Oxygen Concentration - - Weight 90.5 kg (199 lb 8.3 oz) 01/15/2023 3:39 A M [employer] Height 172.7 cm (5' 8 ) 01/10/2023 4:06 PM [employer] SERVER Body Mass Index 30.34 01/10/2023 4:06 PM REST[employer] SERVER documented in this encounter Discharge Summaries * Donna Escoto MD - 01/15/2023 12:03 PM CST Inpatient Discharge Summary Patient Name - Xavier Juan Patient Age - 82 yrs Patient - [id number] [facility] - [id number] Document Creation Date: 01/15/2023 Admitting Provider, : Sweetie Castillo MD Discharge Provider, MD: No att. providers found Primary Care Physician at Discharge: Cassius London MD [phone] Admission Date: 01/10/2023 Discharge Date/time: Admission Location: [facility] LOS - LOS: 3 days DETAILS OF HOSPITAL STAY Hospital Problems/Diagnoses Principal Problem: COPD exacerbation (CMS/HCC) (HCC) Active Problems: Benign hypertension Basal cell carcinoma of lower leg, right Reason for Hospitalization: This is an 82-year-old male with PMH [...] started. Pt received neb treatment en route. Upon arrival to the ED reports slight improvement in his symptoms. Labs in the ED remarkable of leukocytosis wbc 21.2. Troponin negative. Chest X ray personally reviewed negative for consolidation or any acute cardiopulmonary process. Pt received Solu-Medrol and duo neb treatment, started on Rocephin and Azithromycin for pneumonia coverage and was referred for admission for further management Hospital Course: A fib with RVR Chronic diastolic heart failure Pt converted to A fib with RVR overnight. Heart rate 150. Converted back to sinus rhythm this morning 10 am. Echo obtained today showed preserved ef, DD present. Cardiology consulted, started on metoprolol 25 mg bid for rate control, lasix 40 mg po daily added.Started on Eliquis for anticoagulation. Will continue to monitor. Chronic obstructive pulmonary disease with acute exacerbation, possible superimposed bacterial infections/community acquired pneumonia Acute hypoxic respiratory failure Pt presented with worsening dyspnea. Afebrile, on admission, wbc elevated but now down trending, possible related to steroids. Chest X ray negative for consolidation CT chest wo contrast on 01/11 showed signs consistent with atypical pneumonia, possibly viral in nature continue 40 mg PO Prednisone Duo nebulizer scheduled q6h Procalcitonin, mycoplasma serology, and legionella urine Ag pending. ID following, s/p Rocephin andAzithromycin x 3 days, switched to po cefdinir for another 4 days, day 2/4. Nonoliguric ELI vs worsening CKD Pt with elevated BUN and Cr of 34/1.42. Previous baseline of 1.19 from one year prior. Bladder scannegative for urinary retention. Creatinine remain stable 1.3 today, likely progression of CKD vs mild ELI. S/p IV fluids. Nephrology following, appreciate recs. Mixed hyperlipidemia Continue atorvastatin 10 mg Benign hypertension Currently normotensive Continue amlodipine 5 mg and Avapro 140 mg daily Right shoulder pain -Patient has 2 month history of right shoulder pain after his shoulder was injured while playing with his grandchild. -MRI reviewed showed partial-thickness bursal surface tear of a supraspinatus tendon. Possible full-thickness component. Infraspinatus and subscapularis tendinosis. Subacromial-subdeltoid bursitis. Evidence of glenoid labral tear. -pain control Tramadol 25 mg q6h prn -PT/OT Today: Pt is feeling good today. Remains on room air. Denies chest pain or shortness of breath. Heart rateis well controlled. Creatinine increased likely 2/2 lasix, will discontinue. Pt is medically clear for discharge. Pt will continue complete additional 3 days Cefdinir on discharge. Pt will continue with metoprolol for rate control and Eliquis for anticoagulation, he has follow upapt with cardiology in a couple of weeks. Recommended close follow up with PCP. Pt has been advised to present in 1 week for bmp /cbc check to assure creatinine and cbc stability. If cbc persistently elevated recommended Hem/onc consult. Discharge plan discussed with the patient who verbalized understanding. Discharge Details Physical Exam at Discharge: Discharge Condition: Pulse: 64 Resp: 18 BP: 142/77 Temp: 36.2 ??C (97.2 ??F) Weight: 90.5 kg (199 lb 8.3 oz) Pertinent Exam Findings at Discharge: Eyes: EOMI, KLAUDIA, sclare non icteric Neck: supple, no nuchal ridigity, no gross carotid bruits appreciated Pharynx: No gross oral lesion, tongue midline, mucosa moist Lungs CTA Heart: [id number], no significant murmur or gallop Abd: +BS, Non Tender, Non distended, No gross hepatomegaly Lower Ext: No gross edema, pedal artery pulses are palpable bilaterally Neuro: No new deficits appreciated Musculoskeletal: no gross joint erythema, edema, tenderness Skin: No new change Discharge Disposition: Discharge to home or self care Code Status at Discharge: Prior Active Issues & Recommended Plan for Follow-up: Allergies: Miguel A inhibitors and Acetaminophen Discharge Medications: Your medication list START taking these medications Instructions Last Dose Given Next Dose Due apixaban 5 mg tablet Commonly known as: ELIQUIS Take 1 tablet (5 mg total) by mouth every 12 (twelve) hours cefdinir 300 mg capsule Commonly known as: OMNICEF Notes to patient: antibiotic Take 1 capsule (300 mg total) by mouth 2 (two) times a day for 3 doses metoprolol tartrate 25 mg immediate release tablet Commonly known as: LOPRESSOR Notes to patient: Blood pressure Take 1 tablet (25 mg total) by mouth 2 (two) times a day CONTINUE taking these medications Instructions Last Dose Given Next Dose Due amlodipine-atorvastatin 5-10 mg per tablet Commonly known as: CADUET Notes to patient: Blood pressure Take 1 tablet by mouth daily calcium carbonate 1,500 mg (600 mg elemental) tablet Commonly known as: OS-PINEDA Notes to patient: supplement Take 1 tablet (1,500 mg total) by mouth daily. cholecalciferol 5,000 unit tablet Commonly known as: VITAMIN D-3 Notes to patient: supplement Take 1 tablet (5,000 Units total) by mouth daily. docusate sodium 100 mg capsule Commonly known as: Colace Notes to patient: Stool softener Take 1 capsule (100 mg total) by mouth 2 (two) times a day for 14 days fluticasone propionate 50 mcg/actuation nasal spray Commonly known as: FLONASE Notes to patient: allergies Administer 50 sprays into each nostril 2 (two) times a day as needed irbesartan-hydrochlorothiazide 150-12.5 mg per tablet Commonly known as: AVALIDE Notes to patient: High blood pressure meclizine 12.5 mg tablet Commonly known as: ANTIVERT Take 1 tablet (12.5 mg total) by mouth 3 (three) times a day as needed for dizziness montelukast 10 mg tablet Commonly known as: SINGULAIR Notes to patient: allergies Take 10 mg by mouth nightly One-A-Day Men's Multivitamin 400-20-300 mcg tablet Doctor's comments: Generic drug: ieiqjiue-ssc-gjpea-vit K-lycop Notes to patient: supplement Take one by mouth one time per day ProAir HFA 90 mcg/actuation inhaler Doctor's comments: Generic drug: albuterol HFA Notes to patient: Prevent bronchospasm inhale 2 puff by inhalation route every 4 - 6 hours as needed tamsulosin 0.4 mg extended release capsule Doctor's comments: Commonly known as: FLOMAX Notes to patient: Bladder relaxant take 1 capsule by oral route every day 1/2 hour following the same meal each day traMADoL 50 mg tablet Commonly known as: ULTRAM Take 0.5 tablets (25 mg total) by mouth every 6 (six) hours as needed for pain Trelegy Ellipta 100-62.5-25 mcg inhaler Generic drug: odwxapkcnkj-nmawqxzez-ujrfrsby Notes to patient: COPD TAKE 1 INHALATION BY MOUTH DAILY STOP taking these medications aspirin 81 mg chewable tablet simvastatin 10 mg tablet Commonly known as: ZOCOR ASK your doctor about these medications Instructions Last Dose Given Next Dose Due ondansetron 4 mg tablet Commonly known as: ZOFRAN Notes to patient: nausea Take 1 tablet (4 mg total) by mouth every 6 (six) hours Where to Get Your Medications These medications were sent to [id number] - [place], [place] - [address] [facility] [address], [facility] [id number] apixaban 5 mg tablet cefdinir 300 mg capsule metoprolol tartrate 25 mg immediate release tablet Time Spent in Discharge Process: I have spent 35 minutes on discharge planning activities. Test Results Pending at Discharge (If Blank, None Found): Operative Procedures Performed (If Blank, None Found): Outpatient Follow-Up: Future Appointments Date Time Provider Department Center 02/19/2023 1:30 PM Bg Miller NP [facility] PSA Contact Information for Follow-ups Cassius London MD Specialty: Internal Medicine Relationship: PCP - General [address] [place] [address] [place] [address] Next Steps: Follow up in 2 week(s) Please schedule an appointment with the following provider(s): Cassius London MD [address] [place] [address] [place] [address] Follow up in 2 week(s) ANCILLARY INFORMATION Other Procedures & Diagnostic Tests: ECG 12 lead Result Date: 01/10/2023 Vent Rate: 112 bpm RR Interval: 533 msec NV Interval: 145 msec QRS Duration: 103 msec QT Interval: 305 msec QTC Interval: 371 msec P-R-T Georgiana: 59 - -35 - 78 degrees SINUS TACHYCARDIA WITH OCCASIONAL SUPRAVENTRICULAR PREMATURE COMPLEXES LEFT AXIS DEVIATION [QRS AXIS < -30] ABNORMAL ECG Compared to prior EKG, heart rate has increased PVCs are no longer present Electronically Signed By: Reji Maloney MD CT Chest WO Contrast Result Date: 01/11/2023 EXAM DESCRIPTION: CT CHEST WO CONTRAST REASON FOR STUDY: Dyspnea, chronic, unclear etiology Sob yesterday, elevated WBC TECHNIQUE: CT scan of the chest performed without intravenous contrast using helical scanning technique. Reconstructed coronal and sagittal MPR images reviewed. All images stored on PACS. Automated exposure control was used as a dose optimization technique for this examination. COMPARISON: 01/16/2022 REFERENCE: Per ACR white paper recommendations, unless otherwise specified nofollow-up imaging is recommended for incidental renal and adrenal lesions per consensus recommendations based on imaging criteria. Further lab evaluation could be pursued based on clinical findings. FINDINGS: The sensitivity for detection of solid visceral lesions is diminished without the use of intravenous contrast. LUNGS: Moderate upper lobe predominant centrilobular and paraseptal emphysema. Grossly stable posterior biapical pleuroparenchymal consolidations as evidence for scarring. New mild patchy multifocal ground-glass opacities are noted within the lungs bilaterally. This is favored to represent atypical pneumonia. No new consolidation. No pulmonary edema is seen. PLEURA: No effusion. No pneumothorax. MEDIASTINUM/KRISTYN: Prominent mediastinal lymph nodes are grossly stable likely reactive. No hilar lymphadenopathy. HEART: The heart is normal in size. Small pericardial effusion is chronic. CORONARY ARTERY CALCIFICATION: Moderate coronary artery calcification. VASCULATURE: Aorta is normal in caliber. AXILLA: No adenopathy. CHEST WALL: Gynecomastia HARDWARE/LINES/TUBES: None. UPPER ABDOMEN: Calcified granulomas within the spleen. Partially imaged mild perinephric stranding. Part ially imaged 1.6 cm right renal cyst better evaluated on previous ultrasound dated 01/30/2022. Please refer to that report for further findings and follow-up recommendations. MUSCULOSKELETAL: No significant abnormality. OTHER: No other significant abnormality. IMPRESSION: 1. New mild multifocal ground-glass opacities compared to 01/16/2022. This likely represents atypical pneumonia. Recommend follow-up CT in 2 months to document improvement. THIS IS AN ELECTRONICALLY VERIFIED FINAL REPORT 01/11/2023 11:57 AM - Electronically signed by Braydon Roy M.D. AG: DION Report ID: [id number] Reading Location: [id number] XR Chest 1 Vw Portable Result Date: 01/10/2023 EXAM DESCRIPTION: XR CHEST 1 VIEW REASON FOR STUDY: dyspnea EMS has o2 sats of 88% on room air. Placed on 2L Increase in sats to 90s. Nev treatment given enroute. States he has been sick with cough and body aches for two weeks. Negative covid test this morning. TECHNIQUE: Single radiographic view of the chest acquired. COMPARISON: Chest CT performed 01/16/2022 FINDINGS: LUNGS/PLEURA: No focal consolidation or pneumothorax. No pleural effusion. HEART/MEDIASTINUM: Heart size is normal. Normal mediastinal and hilar contours. HARDWARE/LINES/TUBES: None. BONES: No acute findings. OTHER: No other s ignificant finding. IMPRESSION: No acute cardiopulmonary abnormality. THIS IS AN ELECTRONICALLY VERIFIED FINAL REPORT 01/10/2023 10:35 AM - Electronically signed by Nahid Zavala M.D. LL: LL Report ID: [id number] Reading Location: [id number] Recent Labs: Recent Labs Lab Units 01/15/23 0801/14/23 0744 01/13/23 0444 WBC K/cumm 17.3* 16.4* 24.8* HEMOGLOBIN g/dL 13.0 13.1 11.9* HEMATOCRIT % 39.4 39.7 36.8* PLATELETS K/cumm 366 351 360 Recent Labs Lab Units 01/15/23 0801/14/23 0744 01/13/23 0444 WBC K/cumm 17.3* 16.4* 24.8* HEMOGLOBIN g/dL 13.0 13.1 11.9* HEMATOCRIT % 39.4 39.7 36.8* PLATELETS K/cumm 366 351 360 NEUTROS PCT % 71.0 73.7 88.5 LYMPHS PCT % 21.9 19.4 7.1 MONOS PCT % 5.6 6.2 3.6 EOS PCT % 0.6 0.1 0.0 Recent Labs Lab Units 01/15/23 0820 01/14/23 0744 01/13/23 0444 SODIUM mmol/L 139 138 139 POTASSIUM PLASMA mmol/L 4.9 4.7 4.5 CHLORIDE mmol/L 100 103 103 CO2 mmol/L 32 27 26 BUN SERUM mg/dL 39* 34* 40* CREATININE mg/dL 1.60* 1.34* 1.51* TEI-ROR-RGRHDIC mL/min/1.73 m2 43 53 46 GLUCOSE mg/dL 89 81 112 CALCIUM mg/dL 9.4 8.9 8.8 ALBUMIN g/dL 3.4* 3.0* -- PHOSPHORUS PLASMA mg/dL 3.4 2.7 -- Recent Labs Lab Units 01/15/23 0820 01/14/23 0744 01/13/23 0444 SODIUM mmol/L 139 138 139 POTASSIUM PLASMA mmol/L 4.9 4.7 4.5 CHLORIDE mmol/L 100 103 103 CO2 mmol/L 32 27 26 ANIONGAP mmol/L 7 8 10 GLUCOSE mg/dL 89 81 112 BUN SERUM mg/dL 39* 34* 40* CREATININE mg/dL 1.60* 1.34* 1.51* CALCIUM mg/dL 9.4 8.9 8.8 ALBUMIN g/dL 3.4* 3.0* -- No lab exists for component: LABALBU Recent Labs Lab Units 01/14/23 0744 MAGNESIUM mg/dL 1.8 Recent Labs Lab Units 01/13/23 2315 PROTIME (PT) sec 10.7 INR 1.0 APTT sec 28 Lab Results Component Value Date GLUCOSE 89 01/15/2023 GLUCOSE 81 01/14/2023 GLUCOSE 112 01/13/2023 Implant: Implants Type Not Specified [employer] [id number] Progrip [id number] Self Fixate Flat Sheet Mesh Surgical Jose Antonio Pet Latex Free - [id number] - Implanted (Left) Abdomen Inventory item: [employer] Progrip [id number] Self Fixate Flat Sheet Mesh Surgical Jose Antonio Pet Latex Free [id number] Model/Cat number: [id number] 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: [employer] Lot number: [id number] Size: 15 x 10 As of 01/24/2022 Status: Implanted General Precautions (If Blank, None Found): Isolation Status: No active isolations Nutritional Status and in-house recommendations: Anticoagulation Indication: INR: 01/13/2023: 1.0 Warfarin Administrations (last 168 hours) None Oxygen Status: O2 Therapy for the past 12 hrs: O2 Therapy 01/15/23 1116 None (Room air) 01/15/23 0825 None (Room air) 01/15/23 0816 None (Room air) Wound Care Instructions Other Instructions Call provider [...] headache, visual disturbances, weakness and speech changes Active LDAs (If Blank, None Found): Patient Emergency Contact: Primary Emergency Contact: Mel Juan Immunization Status at Discharge Immunization History Administered Date(s) Administered Influenza, Split 07/10/2009, 08/09/2010 Influenza, Trivalent, High Dose, Split, Preservative Free, Intramuscular 09/04/2014, 07/31/2015, 08/06/2016, 08/12/2017 Influenza, Trivalent, Intramuscular 08/09/2011 Influenza, Unspecified 08/21/2022 Pfizer SARS-CoV-2 Vaccination (12+ yrs) PURPLE 01/09/2021, 02/06/2021, 09/11/2021 Pneumococcal Conjugate PCV 13 12/04/2014 Pneumococcal Polysaccharide PPV23 03/26/2009 Td, adsorbed 03/26/2009 Tdap 01/30/2017 ZOSTER LIVE 12/04/2014 Donna Escoto MD A[employer] LINE SERVER documented in this encounter Discharge Instructions * Discharge Instructions* Krys Salazar RN - 01/15/2023 11:25 AM RESTAURANT LINE SERVER If you have any questions or concerns after discharge, please call [facility] at [phone]. [employer] LINE SERVER * Appointments* Cait Reich RN - 01/14/2023 12:43 PM RESTAURANT LINE SERVER You have a new patient appointment in the [facility] office with Bre Carrion February 19, 2023 @ 1:30 p.m. The office is located directly across from the hospital in Medical office [address], [address]. AURANT LINE SERVER * Attachments The following attachments cannot be sent through Care Everywhere. * Apixaban (By mouth) (Tuvaluan) * Cefdinir (By mouth) (Tuvaluan) * Metoprolol (By mouth) (Tuvaluan) documented in this encounter Medications at Time [...] (10 mg total) by mouth nightly 09/09/2021 mdlliato-voq-xawzd -vit K-lycop (ONE-A-DAY MEN'S MULTIVITAMIN) 400-20-300 mcg tablet Take one by mouth one time per day 0 0 08/23/2008 cefdinir (OMNICEF) 300 mg capsuleIndications :Pneumonia, Community Acquired Take 1 capsule (300 mg total) by mouth 2 (two) times a day for 3 doses 3 capsule 01/15/2023 3 amlodipine-atorvas tatin (CADUET) 5-10 mg per tablet [...] times a day as needed 02/05/2022 4 irbesartan-hydroch lorothiazide (AVALIDE) 150-12.5 mg per tablet 07/16/2021 3 [...] Start Date End Date metoprolol tartrate (LOPRESSOR) 25 mg immediate release tablet Take 1 tablet (25 mg total) by mouth 2 (two) times a day 60 tablet 11 01/15/2023 4 cefdinir (OMNICEF) 300 mg capsuleIndications :Pneumonia, Community Acquired Take 1 capsule (300 mg total) by mouth 2 (two) times a day for 3 doses 3 capsule 01/15/2023 3 apixaban (ELIQUIS) 5 mg tabletIndications: atrial fibrillation Take 1 tablet (5 mg total) by mouth every 12 (twelve) hours 30 tablet 2 01/15/2023 3 documented in this encounter Discharge Disposition Disposition Code Departure Means Destination Comment s Discharge to home or self care documented in this encounter Progress Notes * Donna Escoto MD - 01/14/2023 4:41 PM CST General Medicine Daily Progress SUBJECTIVE Chief complaint of pneumonia, A fib. Interval History: Pt converted to A fib with RVR overnight. Heart rate 150. Converted back to sinus rhythm this morning 10 am. Echo obtained today showed preserved ef, DD present. Cardiology consulted, started on metoprolol 25 mg bid for rate control, lasix 40 mg po daily added.Will continue to monitor. Procal returned negative. Pt remains afebrile. Plan to complete 2 additional days Abx per ID. OBJECTIVE Vitals: 24hr Min/Max: Temp Min: 35.9 ??C (96.6 ??F) Max: 36.7 ??C (98 ??F) Pulse Min: 59 Max: 145 BP Min: 110/68 Max: 145/76 Resp Min: 16 Max: 28 SpO2 Min: 86 % Max: 98 % Most Recent : Vitals: 01/14/23 1431 BP: 128/66 Pulse: 62 Resp: 28 Temp: 36.4 ??C (97.5 ??F) SpO2: 94% I/O last 2 completed shifts: In: 2863 [P.O.:1220; I.V.:1643] Out: 2325 [Urine:2325] I/O this shift: In: 1424 [P.O.:1200; I.V.:224] Out: 100 [Urine:100] Physical Exam: Eyes: EOMI, KLAUDIA, sclare non icteric Neck: supple, no nuchal ridigity, no gross carotid bruits appreciated Pharynx: No gross oral lesion, tongue midline, mucosa moist Lungs CTA Heart: [id number], no significant murmur or gallop Abd: +BS, Non Tender, Non distended, No gross hepatomegaly Lower Ext: No gross edema, pedal artery pulses are palpable bilaterally Neuro: No new deficits appreciated Musculoskeletal: no gross joint erythema, edema, tenderness Skin: No new change Lab/Current Medication Review: Recent Results (from the past 24 hour(s)) Protime-INR Collection Time: 01/13/23 11:15 PM Result Value Ref Range PT 10.7 9.2 - 13.5 sec INR 1.0 0.9 - 1.2 aPTT Collection Time: 01/13/23 11:15 PM Result Value Ref Range aPTT 28 27 - 37 sec CBC with auto differential Collection Time: 01/14/23 7:44 AM Result Value Ref Range WBC 16.4 (H) 3.8 - 9.9 K/cumm Hgb 13.1 13.0 - 17.5 g/dL Hct 39.7 38.9 - 50.3 % Plt 351 150 - 400 K/cumm MPV 8.8 (L) 9.1 - 12.3 fL RBC 4.04 (L) 4.30 - 5.80 M/cumm MCV 98.3 (H) 81.3 - 96.4 fL MCH 32.4 27.1 - 33.3 pg MCHC 33.0 32.3 - 35.7 g/dL RDW CV 13.4 11.1 - 14.9 % RDW SD 48.5 (H) 35.7 - 48.1 fL NRBC abs 0.00 0.00 - 0.01 K/cumm Renal function panel Collection Time: 01/14/23 7:44 AM Result Value Ref Range Sodium 138 135 - 145 mmol/L Potassium, pl 4.7 3.3 - 4.9 mmol/L Chloride 103 97 - 110 mmol/L CO2 27 22 - 32 mmol/L Anion gap 8 2 - 15 mmol/L BUN 34 (H) 8 - 25 mg/dL Creatinine 1.34 (H) 0.80 - 1.30 mg/dL Glucose 81 70 - 199 mg/dL Calcium 8.9 8.5 - 10.3 mg/dL Phosphorus, pl 2.7 2.3 - 4.5 mg/dL Albumin 3.0 (L) 3.5 - 5.0 g/dL Pro B-type natriuretic peptide Collection Time: 01/14/23 7:44 AM Result Value Ref Range NT-proBNP 3,863 (H) <=450 pg/mL Magnesium Collection Time: 01/14/23 7:44 AM Result Value Ref Range Magnesium 1.8 1.4 - 2.5 mg/dL Differential, auto Collection Time: 01/14/23 7:44 AM Result Value Ref Range Neutrophil abs 12.0 (H) 1.7 - 6.5 K/cumm Imm gran abs 0.1 0.0 - 0.1 K/cumm Lymphocyte abs 3.2 0.8 - 3.3 K/cumm Monocyte abs 1.0 (H) 0.2 - 0.8 K/cumm Eosinophil abs 0.0 0.0 - 0.5 K/cumm Basophil abs 0.0 0.0 - 0.1 K/cumm Neutrophil pct 73.7 % Imm gran pct 0.5 % Lymphocyte pct 19.4 % Monocyte pct 6.2 % Eosinophil pct 0.1 % Basophil pct 0.1 % eGFR Collection Time: 01/14/23 7:44 AM Result Value Ref Range eGFR 53 mL/min/1.73 m2 ECG 12 lead Result Date: 01/14/2023 Narrative: Vent Rate: 133 bpm RR Interval: 449 msec NV Interval: 0 msec QRS Duration: 99 msec QT Interval: 282 msec QTC Interval: 360 msec P-R-T Georg[place]: 0 - - 9 - 89 degrees ATRIAL FIBRILLATION WITH RAPID VENTRICULAR RESPONSE LOW QRS VOLTAGE IN EXTREMITY LEADS [QRS DEFLECTION < 0.5 mV IN LIMB LEADS] ABNORMAL RHYTHM ECG Compared to prior EKG, atrial fibrillation has replaced sinus rhythm Electronically Signed By: Reji Maloney MD ECG 12 lead Result Date: 01/10/2023 Narrative: Vent Rate: 112 bpm RR Interval: 533 msec NV Interval: 145 msec QRS Duration: 103 msec QTInterval: 305 msec QTC Interval: 371 msec P-R-T Georg[place]: 59 - -35 - 78 degrees SINUS TACHYCARDIA WITH OCCASIONAL SUPRAVENTRICULAR PREMATURE COMPLEXES LEFT AXIS DEVIATION [QRS AXIS < -30] ABNORMAL ECGCompared to prior EKG, heart rate has increased PVCs are no longer present Electronically Signed By: Reji Maloney MD CT Chest WO Contrast Result Date: 01/11/2023 Narrative: EXAM DESCRIPTION: CT CHEST WO CONTRAST REASON FOR STUDY: Dyspnea, chronic, unclear etiology Sob yesterday, elevated WBC TECHNIQUE: CT scan of the chest performed without intravenous contrast using helical scanning technique. Reconstructed coronal and sagittal MPR images reviewed. All images stored on PACS. Automated exposure control was used as a dose optimization technique for this examination. COMPARISON: 01/16/2022 REFERENCE: Per ACR white paper recommendations, unless otherwise specified no follow-up imaging is recommended for incidental renal and adrenal lesions per consensus recommendations based on imaging criteria. Further lab evaluation could be pursued based on clinical findings. FINDINGS: The sensitivity for detection of solid visceral lesions is diminished without the use of intravenous contrast. LUNGS: Moderate upper lobe predominant centrilobular and paraseptal emphysema. Grossly stable posterior biapical pleuroparenchymal consolidations as evidence for scarring. New mild patchy multifocal ground-glass opacities are noted within the lungs bilaterally. This is favored to represent atypical pneumonia. No new consolidation. No pulmonary edema is seen. PLEURA:No effusion. No pneumothorax. MEDIASTINUM/KRISTYN: Prominent mediastinal lymph nodes are grossly stable likely reactive. No hilar lymphadenopathy. HEART: The heart is normal in size. Small pericardial effusion is chronic. CORONARY ARTERY CALCIFICATION: Moderate coronary artery calcification. VASCULATURE: Aorta is normal in caliber. AXILLA: No adenopathy. CHEST WALL: Gynecomastia HARDWARE/LINES/TUBES: None. UPPER ABDOMEN: Calcified granulomas within the spleen. Partially imaged mild perinephric stranding. Partially imaged 1.6 cm right renal cyst better evaluated on previous ultrasound dated 01/30/2022. Please refer to that report for further findings and follow-up recommendations. MUSCULOSKELETAL: No significant abnormality. OTHER: No other significant abnormality. IMPRESSION: 1. New mild multifocal ground-glass opacities compared to 01/16/2022. This likely represents atypical pneumonia. Re commend follow-up CT in 2 months to document improvement. THIS IS AN ELECTRONICALLY VERIFIED FINAL REPORT 01/11/2023 11:57 AM - Electronically signed by Braydon Roy M.D. AG: DION Report ID: [id number] Reading Location: [id number] XR Chest 1 Vw Portable Result Date: 01/10/2023 Narrative: EXAM DESCRIPTION: XR CHEST 1 VIEW REASON FOR STUDY: dyspnea EMS has o2 sats of 88% on room air. Placed on 2L Increase in sats to 90s. Nev treatment given enroute. States he has been sick with cough and body aches for two weeks. Negative covid test this morning. TECHNIQUE: Single radiographic view of the chest acquired. COMPARISON: Chest CT performed 01/16/2022 FINDINGS: LUNGS/PLEURA: No focal consolidation or pneumothorax. No pleural effusion. HEART/MEDIASTINUM: Heart size is normal.Normal mediastinal and hilar contours. HARDWARE/LINES/TUBES: None. BONES: No acute findings. OTHER:No other significant finding. IMPRESSION: No acute cardiopulmonary abnormality. THIS IS AN ELECTRONI GUSTAVO VERIFIED FINAL REPORT 01/10/2023 10:35 AM - Electronically signed by Nahid Zavala M.D. 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 Indications: Atrial Fibrillation. Measurements: 2D/M Mode Doppler Measurement Va lue Normal Range Measurement Value Normal Range EF Teich MM 63.0 [ 55.0 - 70.0 ] percent JURGEN Vmax 2.42 [ 2.00 - 4.00 ] cm2 LVIDd MM 6.20 [ 4.20 - 5.90 ] cm AV Mean PG 9 [ 2 - 4 ] mmHg LVIDs MM 4.10[ 2.30 - 3.90 ] cm AV Peak Emmanuel 1.50 [ 1.00 - 1.70 ] m/s LVPWd MM 1.10 [ 0.60 - 1.00 ] cm AV VTI 36.07 cm IVSd MM 0.80 [ 0.60 - 0.90 ] cm LVOT Diam 2.31 [ 1.70 - 2.10 ] cm LA Dimension MM 4.28 [ 3.00- 4.00 ] cm LVOT Peak Emmanuel 0.87 [ 0.70 - 1.10 ] m/s AoR Diam MM 3.34 [ 2.60 - 3.70 ] cm LVOT VTI 18.38 [ 20.00 - 30.00 ] cm ACS MM 1.75 [ 1.50 - 2.60 ] cm MV E Peak Emmanuel 1.63 [ 0.60 - 1.30 ] m/s MV A Peak Emmanuel 1.20 [ 1.00 - 1.20 ] m/s MV Mean PG 3 [ <= 5 ] mmHg MV PHT 61 [ 20 - 100 ] msec MVA 3.60 MV Decel Time 211 [ 104 - 258 ] msec PV Peak Emmanuel 0.90 [ 0.40 - 0.80 ] m/s TR Peak Emmanuel 2.19 [ 1.00- 2.80 ] m/s TR Peak PG 19 mmHg RVSP 24.00 [ 10.00 - 36.00 ] mmHg E` 0.06 cm/sec E/E` 26.30 [ <= 10.00 ] PA Pressure 10.00 [ 10.00 - 36.00 ] mmHg - Findings: Atrial Septum: The atrial septum isnot well visualized. Left Ventricle: Normal left ventricular systolic function with no focal wall motion abnormalities. Normal left ventricular size. Normal left ventricular wall thickness. Mild enlar gement of left ventricle cavity. Diastolic dysfunction is present. Ejection fraction is measured at63 %. Left Atrium: There is mild enlargement of left atrium. Right Ventricle: Normal right ventricular size. Normal right ventricular systolic function. Right Atrium: The right atrium is normal in size. Aortic Valve: Normal structure of the aortic valve. Mitral Valve: Normal structure of the mitralvalve. Pulmonic Valve: Pulmonic valve not well visualized. Tricuspid Valve: Right Ventricular Systolic Pressure could not be estimated due to inadequate visualization of TR jet. Pericardium: Normal pericardium with no significant pericardial effusion. Aorta: Aortic root not well visualized. IVC: Normal size and normal respiratory collapse consistent with normal right atrial pressure (<5 mmHg).Conclusions: Normal left ventricular systolic function with no focal wall motion abnormalities. Normal left ventricular size. Normal left ventricular wall thickness. Mild enlargement of left ventricle cavity. Diastolic dysfunction is present. Ejection fraction is measured at 63 %. There is mild enlargement of left atrium. Electronically Signed By: Raffy Oneil 2023-01-14 16:19:14 [employer] SERVER CC: CC: MRI Shoulder Right WO Contrast Result Date: 01/08/2023 Narrative: EXAM DESCRIPTION: MRI SHOULDER RIGHT WO CONTRAST REASON FOR STUDY: Pain in right shoulder 5 weeks ago pt injured RT shoulder while playing with great grandson. Pain upper humerus and anterior aspect of joint. Sharp stabbing pain when driving. Loss in ROM. Difficulty lifting RT arm up. Pthas COPD, difficulty holding still due to coughing. Tried to repeat for motion. TECHNIQUE: Multiplanar, multisequence MRI of the right shoulder was performed. COMPARISON: None available FINDINGS: Motion artifact compromises evaluation. Bones and Joint: There is moderate to severe acromioclavicular osteophyte with inferiorly projecting osteophytes. Type 2 acromion. No acute fracture. No effusion. Mild glenohumeral osteoarthritis. Rotator Cuff: Supraspinatus, anterior infraspinatus and superior subscapularis tendinosis. There is at least high-grade partial- thickness bursal surface tear of the anterior distal supraspinatus tendon at the footprint measuring 16 x 15 mm, although small full-thickness component is possible. Small partial-thickness articular surface subscapularis tendon tear. Biceps Tendon: The long head of the biceps tendon is located in the bicipital groove and appears intact. There is tendinosis of the intra-articular portion of the tendon. Labrum: Inadequately evaluated without intraarticular contrast administration. Given this limitation, there is abnormal signal in the superior glenoid labrum as evidence of labral tear. Bursa: Subacromial-subdeltoid bursitis. Other:The suprascapular notch and quadrilateral space appear normal. Normal rotator cuff musculature volume. IMPRESSION: 1. High-grade partial- thickness bursal surface tear of a tendinopathic supraspinatustendon. Possible full-thickness component. 2. Infraspinatus and subscapularis tendinosis. 3. Subacromial-subdeltoid bursitis. 4. Evidence of glenoid labral tear. THIS IS AN ELECTRONICALLY VERIFIED FINAL REPORT 01/08/2023 2:02 PM - Electronically signed by Sam Salazar M.D. JR: Report ID: [id number] Reading Location: [id number] Current Facility-Administered Medications Medication Dose Route Frequency Provider Last Rate Last Admin amLODIPine (NORVASC) tablet 5 mg 5 mg oral Daily Donna Escoto MD 5 mg at 01/14/23 0906 And atorvastatin (LIPITOR) tablet 10 mg 10 mg oral Daily Donna Escoto MD 10 mg at 01/14/23 0905 apixaban (ELIQUIS) tablet 5 mg 5 mg oral Q12H [facility] Raffy Oneil MD budesonide-formoteroL (SYMBICORT) 160-4.5 mcg/actuation inhaler 2 puff 2 puff inhalation BID (RT) Donna Escoto MD 2 puff at 01/14/23 0801 cefdinir (OMNICEF) capsule 300 mg 300 mg oral BID Tawnya Alcocer NP 300 mg at 01/14/23 0906 cholecalciferol (VITAMIN D-3) tablet 2,000 Units 2,000 Units oral Daily Donna Escoto MD 2,000 Units at 01/14/23 0905 furosemide (LASIX) tablet 40 mg 40 mg oral Daily Raffy Oneil MD 40 mg at 01/14/23 1208 ipratropium-albuteroL (DUO-NEB) 0.5-2.5 mg/3 mL nebulizer solution 3 mL 3 mL nebulization Q6H PRN (RT) Diomedes Cortez MD irbesartan (AVAPRO) tablet 150 mg 150 mg oral Daily Donna Escoto MD 150 mg at 01/14/23 0905 metoprolol tartrate (LOPRESSOR) immediate release tablet 25 mg 25 mg oral BID Jina Be MD 25 mg at 01/14/23 09 montelukast (SINGULAIR) tablet 10 mg 10 mg oral Nightly Donna Escoto MD 10 mg at 01/13/232128 nicotine (NICODERM CQ) 21 mg patch 24 hour 1 patch 1 patch transdermal Daily Vanesa Daniels MD predniSONE (DELTASONE) tablet 40 mg 40 mg oral Daily Diomedes Cortez MD 40 mg at 01/14/23 0905 tamsulosin (FLOMAX) extended release capsule 0.4 mg 0.4 mg oral Daily with dinner Donna Escoto MD 0.4 mg at 01/13/23 1659 traMADoL (ULTRAM) tablet 25 mg 25 mg oral Q6H PRN Donna Escoto MD A/P: A fib with RVR Chronic diastolic heart failure Pt converted to A fib with RVR overnight. Heart rate 150. Converted back to sinus rhythm this morning 10 am. Echo obtained today showed preserved ef, DD present. Cardiology consulted, started on metoprolol 25 mg bid for rate control, lasix 40 mg po daily added.Started on Eliquis for anticoagulation. Will continue to monitor. Chronic obstructive pulmonary disease with acute exacerbation, possible superimposed bacterial infections/community acquired pneumonia Acute hypoxic respiratory failure Pt presented with worsening dyspnea. Afebrile, on admission, wbc elevated but now down trending, possible related to steroids. Chest X ray negative for consolidation CT chest wo contrast on 01/11 showed signs consistent with atypical pneumonia, possibly viral in nature continue 40 mg PO Prednisone Duo nebulizer scheduled q6h Procalcitonin, mycoplasma serology, and legionella urine Ag pending. ID following, s/p Rocephin andAzithromycin x 3 days, switched to po cefdinir for another 4 days, day 2/4. Nonoliguric ELI vs worsening CKD Pt with elevated BUN and Cr of 34/1.42. Previous baseline of 1.19 from one year prior. Bladder scannegative for urinary retention. Creatinine remain stable 1.3 today, likely progression of CKD vs mild ELI. S/p IV fluids. Nephrology following, appreciate recs. Mixed hyperlipidemia Continue atorvastatin 10 mg Benign hypertension Currently normotensive Continue amlodipine 5 mg and Avapro 140 mg daily Right shoulder pain -Patient has 2 month history of right shoulder pain after his shoulder was injured while playing with his grandchild. -MRI reviewed showed partial-thickness bursal surface tear of a supraspinatus tendon. Possible full-thickness component. Infraspinatus and subscapularis tendinosis. Subacromial-subdeltoid bursitis. Evidence of glenoid labral tear. -pain control Tramadol 25 mg q6h prn -PT/OT MDM Moderate complexity Principal Problem: COPD exacerbation (CMS/HCC) (HCC) Active Problems: Benign hypertension Basal cell carcinoma of lower leg, right Resolved Problems: No resolved hospital problems. Voice recognition software [employer] Direct was used dictate and transcribe this document. Office Equipment Technician variances may occur. Despite proofreading, typographical errors may occur. Donna Escoto MD 01/14/2023 4:41 PM [employer]URANT LINE SERVER A[employer] SERVER * Tawnya Alcocer NP - 01/14/2023 10:23 AM CST Progress Note Infectious Diseases Chief complaint: Pneumonia Subjective Patient developed new onset atrial fibrillation, cardiology eval pending. Patient denies chest pain, palpitations. Chronic cough and SOB, still slightly more than baseline. He is afebrile. Leukocytosis improving. Procal was normal. Objective Vitals: 01/14/23800 BP: Pulse: Resp: Temp: SpO2: 96% Constitutional: Alert, oriented x3. In no acute distress Eyes: Sclerae anicteric, no conjunctival erythema Lungs: Respirations unlabored. Coarse breath sounds with bilateral wheezes Heart: Irregular, irregular rate and rhythm, no murmurs Abdomen: Bowel sounds present, soft, nontender Skin: Warm and dry, No rashes Extremities: BLE edema 1+ Neuro: No motor deficit Psych: No anxiety Current Medications: Current Facility-Administered Medications Medication Dose Route Frequency Provider Last Rate Last Admin amLODIPine (NORVASC) tablet 5 mg 5 mg oral Daily Donna Escoto MD 5 mg at 01/14/23905 And atorvastatin (LIPITOR) tablet 10 mg 10 mg oral Daily Donna Escoto MD 10 mg at 01/14/23904 aspirin chewable tablet 81 mg 81 mg oral Daily Donna Escoto MD 81 mg at 01/14/23904 budesonide-formoteroL (SYMBICORT) 160-4.5 mcg/actuation inhaler 2 puff 2 puff inhalation BID (RT) Donna Escoto MD 2 puff at 01/14/23800 cefdinir (OMNICEF) capsule 300 mg 300 mg oral BID Tawnya Alcocer NP 300 mg at 01/14/23905 cholecalciferol (VITAMIN D-3) tablet 2,000 Units 2,000 Units oral Daily Donna Escoto MD 2,000 Units at 01/14/23904 enoxaparin (LOVENOX) syringe 80 mg 1 mg/kg subcutaneous Q12H Jina Manuel MD ipratropium-albuteroL (DUO-NEB) 0.5-2.5 mg/3 mL nebulizer solution 3 mL 3 mL nebulization Q6H PRN (RT) Diomedes Cortez MD irbesartan (AVAPRO) tablet 150 mg 150 mg oral Daily Donna Escoto MD 150 mg at 01/14/23 0905 metoprolol tartrate (LOPRESSOR) immediate release tablet 25 mg 25 mg oral BID Jina Be MD 25 mg at 01/14/23 0906 montelukast (SINGULAIR) tablet 10 mg 10 mg oral Nightly Donna Escoto MD 10 mg at 01/13/232128 nicotine (NICODERM CQ) 21 mg patch 24 hour 1 patch 1 patch transdermal Daily Vanesa Daniels MD predniSONE (DELTASONE) tablet 40 mg 40 mg oral Daily Diomedes Cortez MD 40 mg at 01/14/23 09 tamsulosin (FLOMAX) extended release capsule 0.4 mg 0.4 mg oral Daily with dinner Donna Escoto MD 0.4 mg at 01/13/23 1659 traMADoL (ULTRAM) tablet 25 mg 25 mg oral Q6H PRN Donna Escoto MD Allergies: Allergies Allergen Reactions Miguel A Inhibitors Cough Reaction: Cough, Acetaminophen Unknown Social History Social History Tobacco Use Smoking status: Former Types: Cigarettes Quit date: 2011 Years since quittin. Smokeless tobacco: Never Substance and Sexual Activity Drug use: Yes Sexual activity: Defer Partners: Female Alcohol Use: Not At Risk Frequency of Alcohol Consumption: Never Average Number of Drinks: Not on file Frequency of Binge Drinking: Not on file Family Medical History Family History Problem Relation Age of Onset Dementia Mother 87 Dementia; Cancer Mother 87 cancer; Other Father hx not provided; Cancer Brother 60 Cancer -; Bone cancer Brother Brain cancer Brother 62 Cancer -brain; Lung cancer Brother 62 Cancer -lung; Lung cancer Sister Cancer, lung; Brain cancer Sister Imaging No results found. Labs Recent Results (from the past 24 hour(s)) Legionella antigen Urine Collection Time: 01/13/23 4:14 PM Specimen: Urine Result Value Ref Range Legionella Ag Negative Negative Sodium, urine, random Collection Time: 01/13/23 4:14 PM Result Value Ref Range Sodium, ur 76 mmol/L Protime-INR Collection Time: 01/13/23 11:15 PM Result Value Ref Range PT 10.7 9.2 - 13.5 sec INR 1.0 0.9 - 1.2 aPTT Collection Time: 01/13/23 11:15 PM Result Value Ref Range aPTT 28 27 - 37 sec CBC with auto differential Collection Time: 01/14/23 7:44 AM Result Value Ref Range WBC 16.4 (H) 3.8 - 9.9 K/cumm Hgb 13.1 13.0 - 17.5 g/dL Hct 39.7 38.9 - 50.3 % Plt 351 150 - 400 K/cumm MPV 8.8 (L) 9.1 - 12.3 fL RBC 4.04 (L) 4.30 - 5.80 M/cumm MCV 98.3 (H) 81.3 - 96.4 fL MCH 32.4 27.1 - 33.3 pg MCHC 33.0 32.3 - 35.7 g/dL RDW CV 13.4 11.1 - 14.9 % RDW SD 48.5 (H) 35.7 - 48.1 fL NRBC abs 0.00 0.00 - 0.01 K/cumm Renal function panel Collection Time: 01/14/23 7:44 AM Result Value Ref Range Sodium 138 135 - 145 mmol/L Potassium, pl 4.7 3.3 - 4.9 mmol/L Chloride 103 97 - 110 mmol/L CO2 27 22 - 32 mmol/L Anion gap 8 2 - 15 mmol/L BUN 34 (H) 8 - 25 mg/dL Creatinine 1.34 (H) 0.80 - 1.30 mg/dL Glucose 81 70 - 199 mg/dL Calcium 8.9 8.5 - 10.3 mg/dL Phosphorus, pl 2.7 2.3 - 4.5 mg/dL Albumin 3.0 (L) 3.5 - 5.0 g/dL Pro B-type natriuretic peptide Collection Time: 01/14/23 7:44 AM Result Value Ref Range NT-proBNP 3,863 (H) <=450 pg/mL Magnesium Collection Time: 01/14/23 7:44 AM Result Value Ref Range Magnesium 1.8 1.4 - 2.5 mg/dL Differential, auto Collection Time: 01/14/23 7:44 AM Result Value Ref Range Neutrophil abs 12.0 (H) 1.7 - 6.5 K/cumm Imm gran abs 0.1 0.0 - 0.1 K/cumm Lymphocyte abs 3.2 0.8 - 3.3 K/cumm Monocyte abs 1.0 (H) 0.2 - 0.8 K/cumm Eosinophil abs 0.0 0.0 - 0.5 K/cumm Basophil abs 0.0 0.0 - 0.1 K/cumm Neutrophil pct 73.7 % Imm gran pct 0.5 % Lymphocyte pct 19.4 % Monocyte pct 6.2 % Eosinophil pct 0.1 % Basophil pct 0.1 % eGFR Collection Time: 01/14/23 7:44 AM Result Value Ref Range eGFR 53 mL/min/1.73 m2 Assessment/Plan Principal Problem: COPD exacerbation (CMS/HCC) ([facility]) Active Problems: Benign hypertension Basal cell carcinoma of lower leg, right Xavier Juan is an 82-year old male with history of COPD, smoker, HTN, and skin cancer admitted withnew onset shortness of breath, cough, hypoxemia secondary to community-acquired pneumonia +/- COPD exacerbation. Chest CT showed mild multifocal ground-glass opacities suggesting atypical pneumonia, possibly viral. Flu/COVID19/RSV PCR neg. Legionella neg. Mycoplasma pending. He completed 3 days of IV azithromycin plus ceftriaxone, deescalated to cefdinir yesterday. Clinically improved. Plans for another 2 days cefdinir. No further interventions from ID perspective. Tawnya Alcocer NP [facility] Office [phone] A[employer] SERVER * Glenn Cabrera MD - 01/14/2023 9:21 AM CST Improving renal function and UOP, but now with tachyarrhythmias, absent electrolyte disturbances. Consult cardiology. A[employer] LINE SERVER * Donna Escoto MD - 01/13/2023 5:01 PM CST General Medicine Daily Progress SUBJECTIVE Chief complaint of shortness of breath . Interval History: Patient is feeling good today. He is maintaining good saturation on room air. Afebrile. WBC trending down. Procalcitonin, mycoplasma serology, and legionella urine Ag pending. ID following, s/p Rocephin andAzithromycin x 3 days, switched to po cefdinir for another 4 days. Will monitor overnight, dc possible tomorrow. OBJECTIVE Vitals: 24hr Min/Max: Temp Min: 36.4 ??C (97.5 ??F) Max: 36.7 ??C (98.1 ??F) Pulse Min: 57 Max: 86 BP Min: 115/71 Max: 141/75 Resp Min: 16 Max: 24 SpO2 Min: 91 % Max: 99 % Most Recent : Vitals: 01/13/23 1516 BP: 141/75 Pulse: 70 Resp: 24 Temp: 36.4 ??C (97.6 ??F) SpO2: 97% I/O last 2 completed shifts: In: 970 [P.O.:960; IV Piggyback:10] Out: 600 [Urine:600] I/O this shift: In: 480 [P.O.:480] Out: 400 [Urine:400] Physical Exam: Eyes: EOMI, KLAUDIA, sclare non icteric Neck: supple, no nuchal ridigity, no gross carotid bruits appreciated Pharynx: No gross oral lesion, tongue midline, mucosa moist Lungs CTA Heart: [id number], no significant murmur or gallop Abd: +BS, Non Tender, Non distended, No gross hepatomegaly Lower Ext: No gross edema, pedal artery pulses are palpable bilaterally Neuro: No new deficits appreciated Musculoskeletal: no gross joint erythema, edema, tenderness Skin: No new change Lab/Current Medication Review: Recent Results (from the past 24 hour(s)) CBC with auto differential Collection Time: 01/13/23 4:44 AM Result Value Ref Range WBC 24.8 (H) 3.8 - 9.9 K/cumm Hgb 11.9 (L) 13.0 - 17.5 g/dL Hct 36.8 (L) 38.9 - 50.3 % Plt 360 150 - 400 K/cumm MPV 9.4 9.1 - 12.3 fL RBC 3.73 (L) 4.30 - 5.80 M/cumm MCV 98.7 (H) 81.3 - 96.4 fL MCH 31.9 27.1 - 33.3 pg MCHC 32.3 32.3 - 35.7 g/dL RDW CV 13.6 11.1 - 14.9 % RDW SD 49.1 (H) 35.7 - 48.1 fL NRBC abs 0.00 0.00 - 0.01 K/cumm Basic metabolic panel Collection Time: 01/13/23 4:44 AM Result Value Ref Range Sodium 139 135 - 145 mmol/L Potassium, pl 4.5 3.3 - 4.9 mmol/L Chloride 103 97 - 110 mmol/L CO2 26 22 - 32 mmol/L Anion gap 10 2 - 15 mmol/L BUN 40 (H) 8 - 25 mg/dL Creatinine 1.51 (H) 0.80 - 1.30 mg/dL Glucose 112 70 - 199 mg/dL Calcium 8.8 8.5 - 10.3 mg/dL Differential, auto Collection Time: 01/13/23 4:44 AM Result Value Ref Range Neutrophil abs 22.0 (H) 1.7 - 6.5 K/cumm Imm gran abs 0.2 (H) 0.0 - 0.1 K/cumm Lymphocyte abs 1.8 0.8 - 3.3 K/cumm Monocyte abs 0.9 (H) 0.2 - 0.8 K/cumm Eosinophil abs 0.0 0.0 - 0.5 K/cumm Basophil abs 0.0 0.0 - 0.1 K/cumm Neutrophil pct 88.5 % Imm gran pct 0.6 % Lymphocyte pct 7.1 % Monocyte pct 3.6 % Eosinophil pct 0.0 % Basophil pct 0.2 % eGFR Collection Time: 01/13/23 4:44 AM Result Value Ref Range eGFR 46 mL/min/1.73 m2 Sodium, urine, random Collection Time: 01/13/23 4:14 PM Result Value Ref Range Sodium, ur 76 mmol/L ECG 12 lead Result Date: 01/10/2023 Narrative: Vent Rate: 112 bpm RR Interval: 533 msec NV Interval: 145 msec QRS Duration: 103 msec QTInterval: 305 msec QTC Interval: 371 msec P-R-T [place]: 59 - -35 - 78 degrees SINUS TACHYCARDIA WITH OCCASIONAL SUPRAVENTRICULAR PREMATURE COMPLEXES LEFT AXIS DEVIATION [QRS AXIS < -30] ABNORMAL ECGCompared to prior EKG, heart rate has increased PVCs are no longer present Electronically Signed By: Reji Maloney MD CT Chest WO Contrast Result Date: 01/11/2023 Narrative: EXAM DESCRIPTION: CT CHEST WO CONTRAST REASON FOR STUDY: Dyspnea, chronic, unclear etiology Sob yesterday, elevated WBC TECHNIQUE: CT scan of the chest performed without intravenous contrast using helical scanning technique. Reconstructed coronal and sagittal MPR images reviewed. All images stored on PACS. Automated exposure control was used as a dose optimization technique for this examination. COMPARISON: 01/16/2022 REFERENCE: Per ACR white paper recommendations, unless otherwise specified no follow-up imaging is recommended for incidental renal and adrenal lesions per consensus recommendations based on imaging criteria. Further lab evaluation could be pursued based on clinical findings. FINDINGS: The sensitivity for detection of solid visceral lesions is diminished without the use of intravenous contrast. LUNGS: Moderate upper lobe predominant centrilobular and paraseptal emphysema. Grossly stable posterior biapical pleuroparenchymal consolidations as evidence for scarring. New mild patchy multifocal ground-glass opacities are noted within the lungs bilaterally. This is favored to represent atypical pneumonia. No new consolidation. No pulmonary edema is seen. PLEURA:No effusion. No pneumothorax. MEDIASTINUM/KRISTYN: Prominent mediastinal lymph nodes are grossly stable likely reactive. No hilar lymphadenopathy. HEART: The heart is normal in size. Small pericardial effusion is chronic. CORONARY ARTERY CALCIFICATION: Moderate coronary artery calcification. VASCULATURE: Aorta is normal in caliber. AXILLA: No adenopathy. CHEST WALL: Gynecomastia HARDWARE/LINES/TUBES: None. UPPER ABDOMEN: Calcified granulomas within the spleen. Partially imaged mild perinephric stranding. Partially imaged 1.6 cm right renal cyst better evaluated on previous ultrasound dated 01/30/2022. Please refer to that report for further findings and follow-up recommendations. MUSCULOSKELETAL: No significant abnormality. OTHER: No other significant abnormality. IMPRESSION: 1. New mild multifocal ground-glass opacities compared to 01/16/2022. This likely represents atypical pneumonia. Rec ommend follow-up CT in 2 months to document improvement. THIS IS AN ELECTRONICALLY VERIFIED FINAL REPORT 01/11/2023 11:57 AM - Electronically signed by Braydon Roy M.D. AG: AG Report ID: [id number] Reading Location: [id number] XR Chest 1 Vw Portable Result Date: 01/10/2023 Narrative: EXAM DESCRIPTION: XR CHEST 1 VIEW REASON FOR STUDY: dyspnea EMS has o2 sats of 88% on room air. Placed on 2L Increase in sats to 90s. Nev treatment given enroute. States he has been sick with cough and body aches for two weeks. Negative covid test this morning. TECHNIQUE: Single radiographic view of the chest acquired. COMPARISON: Chest CT performed 01/16/2022 FINDINGS: LUNGS/PLEURA: No focal consolidation or pneumothorax. No pleural effusion. HEART/MEDIASTINUM: Heart size is normal.Normal mediastinal and hilar contours. HARDWARE/LINES/TUBES: None. BONES: No acute findings. OTHER:No other significant finding. IMPRESSION: No acute cardiopulmonary abnormality. THIS IS AN ELECTRONI GUSTAVO VERIFIED FINAL REPORT 01/10/2023 10:35 AM - Electronically signed by Nahid Zavala M.D. LL: LL Report ID: [id number] Reading Location: [id number] MRI Shoulder Right WO Contrast Result Date: 01/08/2023 Narrative: EXAM DESCRIPTION: MRI SHOULDER RIGHT WO CONTRAST REASON FOR STUDY: Pain in right shoulder 5 weeks ago pt injured RT shoulder while playing with great grandson. Pain upper humerus and anterior aspect of joint. Sharp stabbing pain when driving. Loss in ROM. Difficulty lifting RT arm up. Pthas COPD, difficulty holding still due to coughing. Tried to repeat for motion. TECHNIQUE: Multiplanar, multisequence MRI of the right shoulder was performed. COMPARISON: None available FINDINGS: Motion artifact compromises evaluation. Bones and Joint: There is moderate to severe acromioclavicular osteophyte with inferiorly projecting osteophytes. Type 2 acromion. No acute fracture. No effusion. Mild glenohumeral osteoarthritis. Rotator Cuff: Supraspinatus, anterior infraspinatus and superior subscapularis tendinosis. There is at least high-grade partial- thickness bursal surface tear of the anterior distal supraspinatus tendon at the footprint measuring 16 x 15 mm, although small full-thickness component is possible. Small partial-thickness articular surface subscapularis tendon tear. Biceps Tendon: The long head of the biceps tendon is located in the bicipital groove and appears intact. There is tendinosis of the intra-articular portion of the tendon. Labrum: Inadequately evaluated without intraarticular contrast administration. Given this limitation, there is abnormal signal in the superior glenoid labrum as evidence of labral tear. Bursa: Subacromial-subdeltoid bursitis. Other:The suprascapular notch and quadrilateral space appear normal. Normal rotator cuff musculature volume. IMPRESSION: 1. High-grade partial- thickness bursal surface tear of a tendinopathic supraspinatustendon. Possible full-thickness component. 2. Infraspinatus and subscapularis tendinosis. 3. Subacromial-subdeltoid bursitis. 4. Evidence of glenoid labral tear. THIS IS AN ELECTRONICALLY VERIFIED FINAL REPORT 01/08/2023 2:02 PM - Electronically signed by Sam Salazar M.D. JR: Report ID: [id number] Reading Location: [place] [address] Current Facility-Administered Medications Medication Dose Route Frequency Provider Last Rate Last Admin amLODIPine (NORVASC) tablet 5 mg 5 mg oral Daily Donna Escoto MD 5 mg at 01/13/23 0841 And atorvastatin (LIPITOR) tablet 10 mg 10 mg oral Daily Donna Escoto MD 10 mg at 01/13/23 0841 aspirin chewable tablet 81 mg 81 mg oral Daily Donna Escoto MD 81 mg at 01/13/23 0842 budesonide-formoteroL (SYMBICORT) 160-4.5 mcg/actuation inhaler 2 puff 2 puff inhalation BID (RT) Donna Escoto MD 2 puff at 01/13/23 0849 cefdinir (OMNICEF) capsule 300 mg 300 mg oral BID Tawnya Alcocer NP 300 mg at 01/13/23 1129 cholecalciferol (VITAMIN D-3) tablet 2,000 Units 2,000 Units oral Daily Donna Escoto MD 2,000 Units at 01/13/23 0842 enoxaparin (LOVENOX) syringe 40 mg 40 mg subcutaneous Daily-2100 Donna Escoto MD 40 mg at 01/12/232003 irbesartan (AVAPRO) tablet 150 mg 150 mg oral Daily Donna Escoto MD 150 mg at 01/13/23 0841 And hydroCHLOROthiazide (HYDRODIURIL) tablet 12.5 mg 12.5 mg oral Daily Donna Escoto MD 12.5 mg at 01/13/23 0842 ipratropium-albuteroL (DUO-NEB) 0.5-2.5 mg/3 mL nebulizer solution 3 mL 3 mL nebulization Q6H PRN (RT) Diomedes Cortez MD montelukast (SINGULAIR) tablet 10 mg 10 mg oral Nightly Donna Escoto MD 10 mg at 01/11/232014 nicotine (NICODERM CQ) 21 mg patch 24 hour 1 patch 1 patch transdermal Daily Vanesa Daniels MD predniSONE (DELTASONE) tablet 40 mg 40 mg oral Daily Diomedes Cortez MD 40 mg at 01/13/23 0841 sodium chloride 0.9% infusion 75 mL/hr intravenous Continuous Diomedes Cortez MD 75 mL/hr at 01/12/232003 75 mL/hr at 01/12/232003 tamsulosin (FLOMAX) extended release capsule 0.4 mg 0.4 mg oral Daily with dinner Donna Escoto MD 0.4 mg at 01/13/23 1659 traMADoL (ULTRAM) tablet 25 mg 25 mg oral Q6H PRN Donna Escoto MD A/P: 1.Chronic obstructive pulmonary disease with acute exacerbation, possible superimposed bacterial infections/community acquired pneumonia Acute hypoxic respiratory failure Pt presented with worsening dyspnea. Afebrile, on admission, wbc elevated but now down trending, possible related to steroids. Chest X ray negative for consolidation CT chest wo contrast on 01/11 showed signs consistent with atypical pneumonia, possibly viral in nature continue 40 mg PO Prednisone Duo nebulizer scheduled q6h Procalcitonin, mycoplasma serology, and legionella urine Ag pending. ID following, s/p Rocephin andAzithromycin x 3 days, switched to po cefdinir for another 4 days. Plan to dc antibiotics if procalcitonin negative. Pulmonary hygiene, early mobility, PT, IS 2. Nonoliguric ELI vs worsening CKD Pt with elevated BUN and Cr of 34/1.42. Previous baseline of 1.19 from one year prior. Bladder scannegative for urinary retention. Creatinine remain stable at 1.5, possible related to progression of CKD vs mild ELI. S/p IV fluids.Nephrology consulted, appreciate recs. 3.Mixed hyperlipidemia Continue atorvastatin 10 mg 4.Benign hypertension Currently normotensive Continue amlodipine 5 mg 5.Right shoulder pain -Patient has 2 month history of right shoulder pain after his shoulder was injured while playing with his grandchild. -MRI reviewed showed partial-thickness bursal surface tear of a supraspinatus tendon. Possible full-thickness component. Infraspinatus and subscapularis tendinosis. Subacromial-subdeltoid bursitis. Evidence of glenoid labral tear. -pain control Tramadol 25 mg q6h prn -PT/OT MDM Moderate complexity Principal Problem: COPD exacerbation (CMS/HCC) ([facility]) Active Problems: Benign hypertension Basal cell carcinoma of lower leg, right Resolved Problems: No resolved hospital problems. Voice recognition software [employer] was used dictate and transcribe this document. Office Equipment Technician variances may occur. Despite proofreading, typographical errors may occur. Donna Escoto MD 01/13/2023 5:01 PM [employer] * Tawnya Alcocer NP - 01/13/2023 9:46 AM CST Progress Note Infectious Diseases Chief complaint: Possible atypical pneumonia Subjective Patient states that he is feeling better today. He remains afebrile. WBCs down to 24.8 from 32.7. Blood cultures remain negative. Objective Vitals: 01/13/23 0855 BP: Pulse: Resp: Temp: SpO2: 98% Constitutional: Alert, oriented x3. In no acute distress Eyes: Sclerae anicteric, no conjunctival erythema Lungs: Respirations unlabored. Coarse breath sounds with bilateral wheezes Heart: Regular rate and rhythm, no murmurs Abdomen: Bowel sounds present, soft, nontender Skin: Warm and dry, No rashes Extremities: BLE edema 1+ Neuro: No motor deficit Psych: No anxiety Current Medications: Current Facility-Administered Medications Medication Dose Route Frequency Provider Last Rate Last Admin amLODIPine (NORVASC) tablet 5 mg 5 mg oral Daily Donna Escoto MD 5 mg at 01/13/23 0841 And atorvastatin (LIPITOR) tablet 10 mg 10 mg oral Daily Donna Escoto MD 10 mg at 01/13/23 0841 aspirin chewable tablet 81 mg 81 mg oral Daily Donna Escoto MD 81 mg at 01/13/23 0842 budesonide-formoteroL (SYMBICORT) 160-4.5 mcg/actuation inhaler 2 puff 2 puff inhalation BID (RT) Donna Escoto MD 2 puff at 01/13/23 0849 cefTRIAXone (ROCEPHIN) 1,000 mg/10 mL in sterile water (premix) 1,000 mg 1,000 mg intravenous Q24H KAYE Vanesa Daniels MD 1,000 mg at 01/13/23 0851 cholecalciferol (VITAMIN D-3) tablet 2,000 Units 2,000 Units oral Daily Donna Escoto MD 2,000 Units at 01/13/23 0842 enoxaparin (LOVENOX) syringe 40 mg 40 mg subcutaneous Daily-2100 Donna Escoto MD 40 mg at 01/12/232003 irbesartan (AVAPRO) tablet 150 mg 150 mg oral Daily Donna Escoto MD 150 mg at 01/13/23 0841 And hydroCHLOROthiazide (HYDRODIURIL) tablet 12.5 mg 12.5 mg oral Daily Donna Escoto MD 12.5 mg at 01/13/23 0842 ipratropium-albuteroL (DUO-NEB) 0.5-2.5 mg/3 mL nebulizer solution 3 mL 3 mL nebulization Q6H PRN (RT) Diomedes Cortez MD montelukast (SINGULAIR) tablet 10 mg 10 mg oral Nightly Donna Escoto MD 10 mg at 01/11/232014 nicotine (NICODERM CQ) 21 mg patch 24 hour 1 patch 1 patch transdermal Daily Vanesa Daniels MD predniSONE (DELTASONE) tablet 40 mg 40 mg oral Daily Diomedes Cortez MD 40 mg at 01/13/23 0841 sodium chloride 0.9% infusion 75 mL/hr intravenous Continuous Diomedes Cortez MD 75 mL/hr at 01/12/232003 75 mL/hr at 01/12/232003 tamsulosin (FLOMAX) extended release capsule 0.4 mg 0.4 mg oral Daily with dinner Donna Escoto MD 0.4 mg at 01/12/23 1741 traMADoL (ULTRAM) tablet 25 mg 25 mg oral Q6H PRN Donna Escoto MD Allergies: Allergies Allergen Reactions Miguel A Inhibitors Cough Reaction: Cough, Acetaminophen Unknown Social History Social History Tobacco Use Smoking status: Former Types: Cigarettes Quit date: 2011 Years since quittin. Smokeless tobacco: Never Substance and Sexual Activity Drug use: Yes Sexual activity: Defer Partners: Female Alcohol Use: Not At Risk Frequency of Alcohol Consumption: Never Average Number of Drinks: Not on file Frequency of Binge Drinking: Not on file Family Medical History Family History Problem Relation Age of Onset Dementia Mother 87 Dementia; Cancer Mother 87 cancer; Other Father hx not provided; Cancer Brother 60 Cancer -; Bone cancer Brother Brain cancer Brother 62 Cancer -brain; Lung cancer Brother 62 Cancer -lung; Lung cancer Sister Cancer, lung; Brain cancer Sister Imaging No results found. Labs Recent Results (from the past 24 hour(s)) CBC with auto differential Collection Time: 01/13/23 4:44 AM Result Value Ref Range WBC 24.8 (H) 3.8 - 9.9 K/cumm Hgb 11.9 (L) 13.0 - 17.5 g/dL Hct 36.8 (L) 38.9 - 50.3 % Plt 360 150 - 400 K/cumm MPV 9.4 9.1 - 12.3 fL RBC 3.73 (L) 4.30 - 5.80 M/cumm MCV 98.7 (H) 81.3 - 96.4 fL MCH 31.9 27.1 - 33.3 pg MCHC 32.3 32.3 - 35.7 g/dL RDW CV 13.6 11.1 - 14.9 % RDW SD 49.1 (H) 35.7 - 48.1 fL NRBC abs 0.00 0.00 - 0.01 K/cumm Basic metabolic panel Collection Time: 01/13/23 4:44 AM Result Value Ref Range Sodium 139 135 - 145 mmol/L Potassium, pl 4.5 3.3 - 4.9 mmol/L Chloride 103 97 - 110 mmol/L CO2 26 22 - 32 mmol/L Anion gap 10 2 - 15 mmol/L BUN 40 (H) 8 - 25 mg/dL Creatinine 1.51 (H) 0.80 - 1.30 mg/dL Glucose 112 70 - 199 mg/dL Calcium 8.8 8.5 - 10.3 mg/dL Differential, auto Collection Time: 01/13/23 4:44 AM Result Value Ref Range Neutrophil abs 22.0 (H) 1.7 - 6.5 K/cumm Imm gran abs 0.2 (H) 0.0 - 0.1 K/cumm Lymphocyte abs 1.8 0.8 - 3.3 K/cumm Monocyte abs 0.9 (H) 0.2 - 0.8 K/cumm Eosinophil abs 0.0 0.0 - 0.5 K/cumm Basophil abs 0.0 0.0 - 0.1 K/cumm Neutrophil pct 88.5 % Imm gran pct 0.6 % Lymphocyte pct 7.1 % Monocyte pct 3.6 % Eosinophil pct 0.0 % Basophil pct 0.2 % eGFR Collection Time: 01/13/23 4:44 AM Result Value Ref Range eGFR 46 mL/min/1.73 m2 Assessment/Plan Principal Problem: COPD exacerbation (CMS/HCC) ([facility]) Active Problems: Benign hypertension Basal cell carcinoma of lower leg, right Xavier Juan is an 82-year old male with history of COPD, smoker, HTN, and skin cancer admitted withnew onset shortness of breath, cough, hypoxemia secondary to community-acquired pneumonia +/- COPD exacerbation. Chest CT showed mild multifocal ground-glass opacities suggesting atypical pneumonia, possibly viral. Flu/COVID19/RSV PCR neg. He completed 3 days of IV azithromycin plus ceftriaxone, clinically improved. WBCs remain elevated but improving, most likely steroid-induced. Procalcitonin, mycoplasma serology, and legionella urine Ag pending. Will deescalate to po cefdinir for another 4 days. If procal normal, will stop antibiotics. Recommend monitoring overnight before discharging. Tawnya Alcocer NP [facility] [phone] [employer] * Diomedes Cortez MD - 01/12/2023 7:41 AM CST General Medicine Daily Progress SUBJECTIVE Chief complaint of shortness of breath. Interval History: Pt reports he feels fine . WBC noted to continue to uptrend along with BUn and Cr. Pt had been started on IV fluids on 01/11 but no improvement. He denies any chest pain, n/V, fevers/chills, SOB, or cough. OBJECTIVE Vitals: 24hr Min/Max: Temp Min: 36.4 ??C (97.5 ??F) Max: 36.9 ??C (98.4 ??F) Pulse Min: 66 Max: 91 BP Min: 102/45 Max: 117/62 Resp Min: 15 Max: 20 SpO2 Min: 92 % Max: 99 % Most Recent : Vitals: 01/12/23 1055 BP: 109/65 Pulse: 70 Resp: 20 Temp: 36.4 ??C (97.5 ??F) SpO2: 98% I/O last 2 completed shifts: In: 1943.8 [P.O.:1080; I.V.:863.8] Out: 1050 [Urine:1050] I/O this shift: In: 250 [P.O.:240; IV Piggyback:10] Out: - Physical Exam: General: AAO x3 , not in acute distress Eyes: EOMI, KLAUDIA, sclare non icteric Neck: supple, no nuchal ridigity, no gross carotid bruits appreciated ENT: No gross oral lesion, tongue midline, mucosa moist Respiratory: mild expiratory wheezing b/l upper and lower lobes Cardiovascular: Heart sounds- [id number], no significant murmur or gallop GI: Abdomen-+BS, Non Tender, Non distended, No gross hepatomegaly Lower Ext: No gross edema, pedal artery pulses present bilaterally Neuro: Muscular Strength upper and lower extremities 5/5 bilaterally,e, sensory intact, cranial nerves 2-12 within normal limits, good coordination, normal speech Musculoskeletal: no gross joint erythema, edema, tenderness Genitourinary: No New change Skin: No new change Psychiatric: Normal affect, good judgment Lab/Current Medication Review: Recent Results (from the past 24 hour(s)) CBC with auto differential Collection Time: 01/12/23 4:46 AM Result Value Ref Range WBC 32.7 (H) 3.8 - 9.9 K/cumm Hgb 12.1 (L) 13.0 - 17.5 g/dL Hct 36.7 (L) 38.9 - 50.3 % Plt 330 150 - 400 K/cumm MPV 9.2 9.1 - 12.3 fL RBC 3.73 (L) 4.30 - 5.80 M/cumm MCV 98.4 (H) 81.3 - 96.4 fL MCH 32.4 27.1 - 33.3 pg MCHC 33.0 32.3 - 35.7 g/dL RDW CV 13.4 11.1 - 14.9 % RDW SD 47.7 35.7 - 48.1 fL NRBC abs 0.00 0.00 - 0.01 K/cumm Basic metabolic panel Collection Time: 01/12/23 4:46 AM Result Value Ref Range Sodium 134 (L) 135 - 145 mmol/L Potassium, pl 4.4 3.3 - 4.9 mmol/L Chloride 98 97 - 110 mmol/L CO2 24 22 - 32 mmol/L Anion gap 12 2 - 15 mmol/L BUN 53 (H) 8 - 25 mg/dL Creatinine 1.57 (H) 0.80 - 1.30 mg/dL Glucose 174 70 - 199 mg/dL Calcium 8.4 (L) 8.5 - 10.3 mg/dL Differential, auto Collection Time: 01/12/23 4:46 AM Result Value Ref Range Neutrophil abs 30.8 (H) 1.7 - 6.5 K/cumm Imm gran abs 0.4 (H) 0.0 - 0.1 K/cumm Lymphocyte abs 0.9 0.8 - 3.3 K/cumm Monocyte abs 0.6 0.2 - 0.8 K/cumm Eosinophil abs 0.0 0.0 - 0.5 K/cumm Basophil abs 0.0 0.0 - 0.1 K/cumm Neutrophil pct 94.1 % Imm gran pct 1.3 % Lymphocyte pct 2.8 % Monocyte pct 1.7 % Eosinophil pct 0.0 % Basophil pct 0.1 % eGFR Collection Time: 01/12/23 4:46 AM Result Value Ref Range eGFR 44 mL/min/1.73 m2 ECG 12 lead Result Date: 01/10/2023 Narrative: Vent Rate: 112 bpm RR Interval: 533 msec NV Interval: 145 msec QRS Duration: 103 msec QTInterval: 305 msec QTC Interval: 371 msec P-R-T [place]: 59 - -35 - 78 degrees SINUS TACHYCARDIA WITH OCCASIONAL SUPRAVENTRICULAR PREMATURE COMPLEXES LEFT AXIS DEVIATION [QRS AXIS < -30] ABNORMAL ECGCompared to prior EKG, heart rate has increased PVCs are no longer present Electronically Signed By: Reji Maloney MD XR Chest 1 Vw Portable Result Date: 01/10/2023 Narrative: EXAM DESCRIPTION: XR CHEST 1 VIEW REASON FOR STUDY: dyspnea EMS has o2 sats of 88% on room air. Placed on 2L Increase in sats to 90s. Nev treatment given enroute. States he has been sick with cough and body aches for two weeks. Negative covid test this morning. TECHNIQUE: Single radiographic view of the chest acquired. COMPARISON: Chest CT performed 01/16/2022 FINDINGS: LUNGS/PLEURA: No focal consolidation or pneumothorax. No pleural effusion. HEART/MEDIASTINUM: Heart size is normal.Normal mediastinal and hilar contours. HARDWARE/LINES/TUBES: None. BONES: No acute findings. OTHER:No other significant finding. IMPRESSION: No acute cardiopulmonary abnormality. THIS IS AN ELECTRONI GUSTAVO VERIFIED FINAL REPORT 01/10/2023 10:35 AM - Electronically signed by Nahid Zavala M.D. LL: NAOMI Report ID: [id number] Reading Location: [id number] MRI Shoulder Right WO Contrast Result Date: 01/08/2023 Narrative: EXAM DESCRIPTION: MRI SHOULDER RIGHT WO CONTRAST REASON FOR STUDY: Pain in right shoulder 5 weeks ago pt injured RT shoulder while playing with great grandson. Pain upper humerus and anterior aspect of joint. Sharp stabbing pain when driving. Loss in ROM. Difficulty lifting RT arm up. Pthas COPD, difficulty holding still due to coughing. Tried to repeat for motion. TECHNIQUE: Multiplanar, multisequence MRI of the right shoulder was performed. COMPARISON: None available FINDINGS: Motion artifact compromises evaluation. Bones and Joint: There is moderate to severe acromioclavicular osteophyte with inferiorly projecting osteophytes. Type 2 acromion. No acute fracture. No effusion. Mild glenohumeral osteoarthritis. Rotator Cuff: Supraspinatus, anterior infraspinatus and superior subscapularis tendinosis. There is at least high-grade partial- thickness bursal surface tear of the anterior distal supraspinatus tendon at the footprint measuring 16 x 15 mm, although small full-thickness component is possible. Small partial-thickness articular surface subscapularis tendon tear. Biceps Tendon: The long head of the biceps tendon is located in the bicipital groove and appears intact. There is tendinosis of the intra-articular portion of the tendon. Labrum: Inadequately evaluated without intraarticular contrast administration. Given this limitation, there is abnormal signal in the superior glenoid labrum as evidence of labral tear. Bursa: Subacromial-subdeltoid bursitis. Other:The suprascapular notch and quadrilateral space appear normal. Normal rotator cuff musculature volume. IMPRESSION: 1. High-grade partial- thickness bursal surface tear of a tendinopathic supraspinatustendon. Possible full-thickness component. 2. Infraspinatus and subscapularis tendinosis. 3. Subacromial-subdeltoid bursitis. 4. Evidence of glenoid labral tear. THIS IS AN ELECTRONICALLY VERIFIED FINAL REPORT 01/08/2023 2:02 PM - Electronically signed by Sam Salazar M.D. JR: Report ID: [id number] Reading Location: [place] [address] Current Facility-Administered Medications Medication Dose Route Frequency Provider Last Rate Last Admin amLODIPine (NORVASC) tablet 5 mg 5 mg oral Daily Donna Escoto MD 5 mg at 01/12/23 0850 And atorvastatin (LIPITOR) tablet 10 mg 10 mg oral Daily Donna Escoto MD 10 mg at 01/12/23 0850 aspirin chewable tablet 81 mg 81 mg oral Daily Donna Escoto MD 81 mg at 01/12/23 0850 budesonide-formoteroL (SYMBICORT) 160-4.5 mcg/actuation inhaler 2 puff 2 puff inhalation BID (RT) Donna Escoto MD 2 puff at 01/12/23 0824 cefTRIAXone (ROCEPHIN) 1,000 mg/10 mL in sterile water (premix) 1,000 mg 1,000 mg intravenous Q24H KAYE Vanesa Daniels MD 1,000 mg at 01/12/23 0850 cholecalciferol (VITAMIN D-3) tablet 2,000 Units 2,000 Units oral Daily Donna Escoto MD 2,000 Units at 01/12/23 0850 enoxaparin (LOVENOX) syringe 40 mg 40 mg subcutaneous Daily-2100 Donna Escoto MD 40 mg at 01/11/232014 irbesartan (AVAPRO) tablet 150 mg 150 mg oral Daily Donna Escoto MD 150 mg at 01/12/23 0850 And [Held by Provider] hydroCHLOROthiazide (HYDRODIURIL) tablet 12.5 mg 12.5 mg oral Daily Donna Escoto MD 12.5 mg at 01/12/23 0850 ipratropium-albuteroL (DUO-NEB) 0.5-2.5 mg/3 mL nebulizer solution 3 mL 3 mL nebulization Q6H PRN (RT) Diomedes Cortez MD montelukast (SINGULAIR) tablet 10 mg 10 mg oral Nightly Donna Escoto MD 10 mg at 01/11/232014 nicotine (NICODERM CQ) 21 mg patch 24 hour 1 patch 1 patch transdermal Daily Vanesa Daniels MD [START ON 01/13/2023] predniSONE (DELTASONE) tablet 40 mg 40 mg oral Daily Diomedes Cortez MD sodium chloride 0.9% infusion 75 mL/hr intravenous Continuous Diomedes Cortez MD 75 mL/hr at 01/11/239 75 mL/hr at 01/11/231718 tamsulosin (FLOMAX) extended release capsule 0.4 mg 0.4 mg oral Daily with dinner Donna Escoto MD 0.4 mg at 01/11/231718 traMADoL (ULTRAM) tablet 25 mg 25 mg oral Q6H PRN Donna Escoto MD A/P: 1.Chronic obstructive pulmonary disease with acute exacerbation, possible superimposed bacterial infections/community acquired pneumonia Acute hypoxic respiratory failure Pt presented with worsening dyspnea. Afebrile, on admission, wbc elevated 21.2, and uptrending, now at 32k. Chest X ray negative for consolidation Will de-escalate steroids to 40 mg PO Prednisone given pts improvement CT chest wo contrast on 01/11 showed signs consistent with atypical pneumonia, possibly viral in nature Duo nebulizer scheduled q6h Continue with Rocephin and Azithromycin D3 for empiric pneumonia coverage Check procalcitonin and mycoplasma serology, currently pending Pt weaned down to room air ID consulted, appreciate recs, felt pts leukocytosis 2/2 steroids Pulmonary hygiene, early mobility, PT, IS 2. Nonoliguric ELI Pt with elevated BUN and Cr of 34/1.42. Previous baseline of 1.19 from one year prior. IVF NS had been started on 01/11 but BUN and Cr worsened. Bladder scan negative for urinary retention. Nephrology consulted, appreciate recs. 3.Mixed hyperlipidemia Continue atorvastatin 10 mg 4.Benign hypertension Currently normotensive Continue amlodipine 5 mg 5.Right shoulder pain -Patient has 2 month history of right shoulder pain after his shoulder was injured while playing with his grandchild. -MRI reviewed showed partial-thickness bursal surface tear of a supraspinatus tendon. Possible full-thickness component. Infraspinatus and subscapularis tendinosis. Subacromial-subdeltoid bursitis. Evidence of glenoid labral tear. -pain control Tramadol 25 mg q6h prn -PT/OT MDM Moderate complexity Principal Problem: COPD exacerbation (CMS/HCC) (HCC) Active Problems: Benign hypertension Basal cell carcinoma of lower leg, right Resolved Problems: No resolved hospital problems. Diomedes Cortez MD 01/12/2023 11:47 AM [employer] * Mar Mendiola, PT - 01/11/2023 7:49 AM CST Physical Therapy 01/11/23 0720 General Chart Reviewed Yes Session Type Evaluation PT Received On 01/11/23 Safe Environment Arm Band Checked;Call Light within Reach;Notified RN;Overbed Table within Reach (Pt found sitting EOB) Subjective Agreeable to Therapy Subjective Comment I'm going home today, I feel great Additional Pertinent History COPD exacerbation, basal cell carcinoma R cheek Family/Caregiver Present No Physical Therapy-Patient Goal return home with Precautions Precautions (Pt is on 3L O2) Home Living Type of Home House Home Layout One level;Basement Home Access Stairs to enter with rails Entrance Stairs-Rails Right Entrance Stairs-Number of Steps 2 in the back and 4 in the front, both have R handrail Home Mobility Equipment Single point cane (states he does not use any AD at home but his had had previous surgeries and has a cane) Prior Function Level of Brutus Independent with ADLs;Independent functional transfers;Independent with ambulation;Independent with homemaking with ambulation Lives With Spouse Receives Help From Spouse/Significant other;Family Driving Yes Mode of Transportation Car Fall within the last 6 months No Pain Assessment Pain Assessment 0-10 Pain Score 0 - No pain Cognition Overall Cognitive Status WFL Arousal/Alertness Alert Attention Span Appears intact;Age appropriate Memory Appears intact Current communication Appears Intact Orientation Oriented X4 (person, place, time, situation) Following Commands Follows all commands and directions without difficulty Safety Judgment Good awareness of safety precautions Problem Solving Able to problem solve independently Compliance/Behavior Easy to engage Balance Balance Yes Static Sitting Balance Static Sitting-Balance Support No upper extremity supported;Feet supported Static Sitting-Sitting Surface Bed Static Sitting-Level of Assistance Independent Static Standing Balance Static Standing-Balance Support No upper extremity supported Static Standing-Standing Surface Floor Static Standing-Level of Assistance Independent Bed Mobility 1 Bed Mobility From 1 Supine Bed Mobility Type 1 To Bed Mobility to 1 Edge of bed Level of Assistance 1 Independent Transfer 1 Transfer From 1 Sit;Bed Transfer Type 1 To and from Transfer to 1 Stand Technique 1 Sit to stand;Stand to sit Transfer Device 1 No device Transfer Level of Assistance 1 Independent Ambulation 1 Distance (ft) 1 300ft Surface 1 Level tile Device 1 No device Assistance 1 Independent Quality of Gait 1 WFL Ambulation Comments 1 pt on 3L O2, SpO2 during ambulation 94-95% Stairs Stairs Yes Stairs Number of Stairs 1 2 Rails 1 Right Device 1 No device Assistance 1 Independent RLE Assessment RLE Assessment WFL LLE Assessment LLE Assessment WFL Basic Mobility - 6 Click How much difficulty does the patient have: Turning over in bed 4 How much difficulty does the patient currently have: Sitting down and standing up from a chair witharms? 4 How much difficulty does the patient have: Moving from lying on back to sitting on the side of the bed? 4 How much difficulty does the patient have: Moving to and from a bed to a chair including wheelchair? 4 How much help does the patient currently need: Walk in hospital room? 4 How much help from another person does the patient currently need: Climbing 3-5 steps with a railing? 4 Total 6 Click Score (range 6-24) 24 Score Interpretation 57.68 Assessment Prognosis Excellent Problem List Other (comments) (no mobility limitations observed at this time) Barriers to Discharge None Plan Plan Discharge Recommendation/Plan PT Recommendation/Plan Home with family PT Recommendation/Plan Comments discharge PT Frequency during current admission Discharge from this Service PT Equipment Recommended None PT Evaluation Complete Yes [employer] * Diomedes Cortez MD - 01/11/2023 7:37 AM CST General Medicine Daily Progress SUBJECTIVE Chief complaint of shortness of breath. Interval History: Pt reports he feels better and ready to go home . Noted to remain on 3L O2 NC (baseline is none). He reported he worked well with PT. Discussed pts uptrending WBC, and necessity to obtain additionalimaging, including CT chest and pt and family understood. No acute events noted. OBJECTIVE Vitals: 24hr Min/Max: Temp Min: 36.2 ??C (97.1 ??F) Max: 36.4 ??C (97.6 ??F) Pulse Min: 70 Max: 88 BP Min: 101/55 Max: 119/56 Resp Min: 16 Max: 22 SpO2 Min: 90 % Max: 98 % Most Recent : Vitals: 01/11/23 1107 BP: 109/58 Pulse: 70 Resp: 16 Temp: 36.3 ??C (97.4 ??F) SpO2: 93% I/O last 2 completed shifts: In: 120 [P.O.:120] Out: 850 [Urine:850] I/O this shift: In: 360 [P.O.:360] Out: - Physical Exam: General: AAO x3 , not in acute distress Eyes: EOMI, KLAUDIA, sclare non icteric Neck: supple, no nuchal ridigity, no gross carotid bruits appreciated ENT: No gross oral lesion, tongue midline, mucosa moist Respiratory: diffuse wheezing b/l upper and lower lobes Cardiovascular: Heart sounds- [id number], no significant murmur or gallop GI: Abdomen-+BS, Non Tender, Non distended, No gross hepatomegaly Lower Ext: No gross edema, pedal artery pulses present bilaterally Neuro: Muscular Strength upper and lower extremities 5/5 bilaterally,e, sensory intact, cranial nerves 2-12 within normal limits, good coordination, normal speech Musculoskeletal: no gross joint erythema, edema, tenderness Genitourinary: No New change Skin: No new change Psychiatric: Normal affect, good judgment Lab/Current Medication Review: Recent Results (from the past 24 hour(s)) Influenza A/B, RSV, and COVID-19 PCR Nasopharyngeal Collection Time: 01/10/23 12:29 PM Specimen: Nasopharyngeal Result Value Ref Range COVID-19 RNA Negative Negative Influenza A RNA Negative Negative Influenza B RNA Negative Negative RSV RNA Negative Negative Blood gas, venous Collection Time: 01/10/23 12:42 PM Result Value Ref Range pH, Venous 7.43 7.32 - 7.43 PCO2, Venous 42 40 - 50 mmHg PO2, Venous 84 mmHg HCO3 Venous, Calculated 27 20 - 30 mmol/L BE, venous 3 mmol/L Troponin T high-sensitivity 2-hour Collection Time: 01/10/23 12:44 PM Result Value Ref Range Trop T hs 18 <=22 ng/L Trop T hs delta 0 ng/L Trop T hs interp Insignificant Urinalysis reflex to microscopic and culture Urine Collection Time: 01/10/23 1:16 PM Specimen: Urine Result Value Ref Range Color, ur Yellow Yellow Clarity, ur Clear Clear Specific gravity, ur 1.023 1.003 - 1.030 pH, urine 7.0 Protein, ur ql 1+ (A) Negative Glucose, ur ql Negative Negative Ketones, ur Negative Negative Bilirubin, ur Negative Negative Blood, ur Negative Negative Urobilinogen, ur 2.0 (A) <2.0 mg/dL Nitrite, ur Negative Negative Leukocyte esterase, ur Negative Negative UA reflex comment Reflex to microscopic UA will be performed. Urinalysis, microscopic only Collection Time: 01/10/23 1:16 PM Result Value Ref Range WBC, ur 0-5 0 - 5 /HPF RBC, ur 11-20 (A) 0 - 2 /HPF Epithelial cells, squamous, ur 1-5 0 - 5 /HPF Mucous, ur Present (A) Hyaline casts, ur 1-5 0 - 10 /LPF Culture Reflex Comment Reflex conditions for urine culture (WBC >10) not met. Troponin T high-sensitivity 4-hour Collection Time: 01/10/23 2:52 PM Result Value Ref Range Trop T hs 16 <=22 ng/L Trop T hs delta -2 ng/L Trop T hs interp Insignificant Troponin T high-sensitivity 6-hour Collection Time: 01/10/23 5:04 PM Result Value Ref Range Trop T hs 15 <=22 ng/L Trop T hs delta -3 ng/L Trop T hs interp Insignificant CBC with auto differential Collection Time: 01/11/23 7:06 AM Result Value Ref Range WBC 27.0 (H) 3.8 - 9.9 K/cumm Hgb 12.9 (L) 13.0 - 17.5 g/dL Hct 38.5 (L) 38.9 - 50.3 % Plt 316 150 - 400 K/cumm MPV 10.1 9.1 - 12.3 fL RBC 3.95 (L) 4.30 - 5.80 M/cumm MCV 97.5 (H) 81.3 - 96.4 fL MCH 32.7 27.1 - 33.3 pg MCHC 33.5 32.3 - 35.7 g/dL RDW CV 13.4 11.1 - 14.9 % RDW SD 47.8 35.7 - 48.1 fL NRBC abs 0.00 0.00 - 0.01 K/cumm Basic metabolic panel Collection Time: 01/11/23 7:06 AM Result Value Ref Range Sodium 135 135 - 145 mmol/L Potassium, pl 4.5 3.3 - 4.9 mmol/L Chloride 96 (L) 97 - 110 mmol/L CO2 24 22 - 32 mmol/L Anion gap 14 2 - 15 mmol/L BUN 34 (H) 8 - 25 mg/dL Creatinine 1.42 (H) 0.80 - 1.30 mg/dL Glucose 164 70 - 199 mg/dL Calcium 9.5 8.5 - 10.3 mg/dL Differential, auto Collection Time: 01/11/23 7:06 AM Result Value Ref Range Neutrophil abs 25.3 (H) 1.7 - 6.5 K/cumm Imm gran abs 0.3 (H) 0.0 - 0.1 K/cumm Lymphocyte abs 1.1 0.8 - 3.3 K/cumm Monocyte abs 0.3 0.2 - 0.8 K/cumm Eosinophil abs 0.0 0.0 - 0.5 K/cumm Basophil abs 0.0 0.0 - 0.1 K/cumm Neutrophil pct 93.8 % Imm gran pct 1.2 % Lymphocyte pct 3.9 % Monocyte pct 1.0 % Eosinophil pct 0.0 % Basophil pct 0.1 % eGFR Collection Time: 01/11/23 7:06 AM Result Value Ref Range eGFR 50 mL/min/1.73 m2 ECG 12 lead Result Date: 01/10/2023 Narrative: Vent Rate: 112 bpm RR Interval: 533 msec NV Interval: 145 msec QRS Duration: 103 msec QTInterval: 305 msec QTC Interval: 371 msec P-R-T [place]: 59 - -35 - 78 degrees SINUS TACHYCARDIA WITH OCCASIONAL SUPRAVENTRICULAR PREMATURE COMPLEXES LEFT AXIS DEVIATION [QRS AXIS < -30] ABNORMAL ECGCompared to prior EKG, heart rate has increased PVCs are no longer present Electronically Signed By: Reji Maloney MD XR Chest 1 Vw Portable Result Date: 01/10/2023 Narrative: EXAM DESCRIPTION: XR CHEST 1 VIEW REASON FOR STUDY: dyspnea EMS has o2 sats of 88% on room air. Placed on 2L Increase in sats to 90s. Nev treatment given enroute. States he has been sick with cough and body aches for two weeks. Negative covid test this morning. TECHNIQUE: Single radiographic view of the chest acquired. COMPARISON: Chest CT performed 01/16/2022 FINDINGS: LUNGS/PLEURA: No focal consolidation or pneumothorax. No pleural effusion. HEART/MEDIASTINUM: Heart size is normal.Normal mediastinal and hilar contours. HARDWARE/LINES/TUBES: None. BONES: No acute findings. OTHER:No other significant finding. IMPRESSION: No acute cardiopulmonary abnormality. THIS IS AN ELECTRONI GUSTAVO VERIFIED FINAL REPORT 01/10/2023 10:35 AM - Electronically signed by Nahid Zavala M.D. LL: NAOMI Report ID: [id number] Reading Location: [id number] MRI Shoulder Right WO Contrast Result Date: 01/08/2023 Narrative: EXAM DESCRIPTION: MRI SHOULDER RIGHT WO CONTRAST REASON FOR STUDY: Pain in right shoulder 5 weeks ago pt injured RT shoulder while playing with great grandson. Pain upper humerus and anterior aspect of joint. Sharp stabbing pain when driving. Loss in ROM. Difficulty lifting RT arm up. Pthas COPD, difficulty holding still due to coughing. Tried to repeat for motion. TECHNIQUE: Multiplanar, multisequence MRI of the right shoulder was performed. COMPARISON: None available FINDINGS: Motion artifact compromises evaluation. Bones and Joint: There is moderate to severe acromioclavicularosteophyte with inferiorly projecting osteophytes. Type 2 acromion. No acute fracture. No effusion.Mild glenohumeral osteoarthritis. Rotator Cuff: Supraspinatus, anterior infraspinatus and superior subscapularis tendinosis. There is at least high-grade partial- thickness bursal surface tear of theanterior distal supraspinatus tendon at the footprint measuring 16 x 15 mm, although small full-thickness component is possible. Small partial-thickness articular surface subscapularis tendon tear. Biceps Tendon: The long head of the biceps tendon is located in the bicipital groove and appears intact. There is tendinosis of the intra-articular portion of the tendon. Labrum: Inadequately evaluatedwithout intraarticular contrast administration. Given this limitation, there is abnormal signal in the superior glenoid labrum as evidence of labral tear. Bursa: Subacromial-subdeltoid bursitis. Other: The suprascapular notch and quadrilateral space appear normal. Normal rotator cuff musculature volume. IMPRESSION: 1. High-grade partial- thickness bursal surface tear of a tendinopathic supraspinatus tendon. Possible full-thickness component. 2. Infraspinatus and subscapularis tendinosis. 3. Suba cromial-subdeltoid bursitis. 4. Evidence of glenoid labral tear. THIS IS AN ELECTRONICALLY VERIFIEDFINAL REPORT 01/08/2023 2:02 PM - Electronically signed by Sam Salazar M.D. JR: Report ID: [id number] Reading Location: [place] [id number] Current Facility-Administered Medications Medication Dose Route Frequency Provider Last Rate Last Admin amLODIPine (NORVASC) tablet 5 mg 5 mg oral Daily Donna Escoto MD 5 mg at 01/11/23 0825 And atorvastatin (LIPITOR) tablet 10 mg 10 mg oral Daily Donna Escoto MD 10 mg at 01/11/23 0826 aspirin chewable tablet 81 mg 81 mg oral Daily Donna Escoto MD 81 mg at 01/11/23 0825 azithromycin (ZITHROMAX) tablet 500 mg 500 mg oral Daily Sweetie Castillo MD 500 mg at 01/11/23 0825 budesonide-formoteroL (SYMBICORT) 160-4.5 mcg/actuation inhaler 2 puff 2 puff inhalation BID (RT) Donna Escoto MD 2 puff at 01/11/23 0848 cefTRIAXone (ROCEPHIN) 1,000 mg/10 mL in sterile water (premix) 1,000 mg 1,000 mg intravenous Q24H [facility] Vanesa Daniels MD 1,000 mg at 01/11/23 0834 cholecalciferol (VITAMIN D-3) tablet 2,000 Units 2,000 Units oral Daily Donna Escoto MD 2,000 Units at 01/11/23 0825 enoxaparin (LOVENOX) syringe 40 mg 40 mg subcutaneous Daily-2100 Donna Escoto MD irbesartan (AVAPRO) tablet 150 mg 150 mg oral Daily Donna Escoto MD 150 mg at 01/11/23 0825 And hydroCHLOROthiazide (HYDRODIURIL) tablet 12.5 mg 12.5 mg oral Daily Donna Escoto MD 12.5 mg at 01/11/23 0825 ipratropium-albuteroL (DUO-NEB) 0.5-2.5 mg/3 mL nebulizer solution 3 mL 3 mL nebulization Q6H KAYE (RT) Renee Varela MD 3 mL at 01/11/23 0848 methylPREDNISolone sodium succinate (SOLU-medrol) preservative free injection 40 mg 40 mg intravenous Q6H [facility] Donna Escoto MD 40 mg at 01/11/23 0514 montelukast (SINGULAIR) tablet 10 mg 10 mg oral Nightly Donna Escoto MD 10 mg at 01/10/232046 nicotine (NICODERM CQ) 21 mg patch 24 hour 1 patch 1 patch transdermal Daily Vanesa Daniels MD sodium chloride 0.9% infusion 75 mL/hr intravenous Continuous Diomedes Cortez MD tamsulosin (FLOMAX) extended release capsule 0.4 mg 0.4 mg oral Daily with dinner Donna Escoto MD 0.4 mg at 01/10/232046 traMADoL (ULTRAM) tablet 25 mg 25 mg oral Q6H PRN Donna Escoto MD A/P: 1.Chronic obstructive pulmonary disease with acute exacerbation, possible superimposed bacterial infections/community acquired pneumonia Acute hypoxic respiratory failure Pt presented with worsening dyspnea. Afebrile, wbc elevated 21.2, and uptrended to 27k on 01/11. Chest X ray negative for consolidation Will c/w Solu-Medrol [address] chest wo contrast ordered for further visualization of possible lung etiology Duo nebulizer scheduled q6h Will substitute Trelegy Ellipta with Symbicort while in hospital Continue with Rocephin and Azithromycin D2 for empiric pneumonia coverage, check procalcitonin and mycoplasma serology, currently pending Continue supplemental oxygen, wean down as tolerated, currently on 3 liters NC (baseline is none) Pulmonary hygiene, early mobility, PT, IS 2. Nonoliguric ELI, likely prerenal in nature Pt with elevated BUN and Cr of 34/1.42. Previous baseline of 1.19 from one year prior. Will start IVF NS at 75 cc/hr, BMP in AM . 3.Mixed hyperlipidemia Continue atorvastatin 10 mg 4.Benign hypertension Currently normotensive Continue amlodipine 5 mg 5.Right shoulder pain -Patient has 2 month history of right shoulder pain after his shoulder was injured while playing with his grandchild. -MRI reviewed showed partial-thickness bursal surface tear of a supraspinatus tendon. Possible full-thickness component. Infraspinatus and subscapularis tendinosis. Subacromial-subdeltoid bursitis. Evidence of glenoid labral tear. -pain control Tramadol 25 mg q6h prn -PT MDM Moderate complexity Principal Problem: COPD exacerbation (CMS/HCC) (HCC) Active Problems: Benign hypertension Basal cell carcinoma of lower leg, right Resolved Problems: No resolved hospital problems. Diomedes Cortez MD 01/11/2023 11:57 AM [employer] * Hector Lee RPh - 01/10/2023 2:08 PM CST Antimicrobial Stewardship Team Note This patient has been assessed by the Antimicrobial Stewardship Team and meets approved criteria for discontinuation of azithromycin for community acquired pneumonia after 3 days of therapy. Studies have shown that a 3 day duration is as effective as longer durations. Discontinuing azithromycin decreases the incidence of side effects, and will continue to work for an extended period of time afterdiscontinuation (Azithromycin concentrations in the lung remain above the ANGEL of important respiratory pathogens for up to 4 days after administration of a 500 mg dose). Azithromycin will be discontinued after 3 days of therapy per pharmacy protocol. Inclusion criteria: Azithromycin 500 mg daily x 3 days duration Azithromycin cumulative dose of 1500 mg Exclusions: Mycobacterial lung infections Legionella spp. lung infections Concurrent infection or prophylaxis warranting continued azithromycin use Documentation of: Pleural infections or empyema, lung abscess, necrotizing pneumonia, bronchiectasis, serious extra-pulmonary infection (endocarditis, meningitis, aureus bacteremia), bacteremia or other concurrent infection Severe Immunosuppression Transplant recipients, HIV infection, acquired or congenital immunodeficiency, and/or an absolute neutrophil count < 500 cell/mm3 upon admission For questions please contact: Hector Lee RPh [facility] Pharmacy department [phone] [employer] documented in this encounter H&P Notes * Donna Escoto MD - 01/10/2023 6:43 PM CST History and Physical Hospitalists services Date of service: 01/10/2023 Primary care provider: Donna Escoto MD HPI: This is an 82-year-old male with PMH [...] started. Pt received neb treatment en route. Upon arrival to the ED reports slight improvement in his symptoms. Denies fever, chills, leg swelling/pain, hx of recent travel/immobilization, chest pain, abdominal pair or any other active complaints. Labs in the ED remarkable of leukocytosis wbc 21.2. Troponin negative. Chest X ray personally reviewed negative for consolidation or any acute cardiopulmonary process. Pt received Solu-Medrol and duo neb treatment, started on Rocephin and Azithromycin for pneumonia coverage and was referred for admission for further management. Past Medical History: Diagnosis Date Asbestosis (CMS/HCC) (HCC) asbestosis Cancer (CMS/HCC) (HCC) biopsy showed small area of prostate cancer Chronic diarrhea COPD (chronic obstructive pulmonary disease) (CMS/HCC) (HCC) HX OTHER MEDICAL dyslipidemia HX OTHER MEDICAL PAD HX OTHER MEDICAL ED HX OTHER MEDICAL 01-pulmonolgist HX OTHER MEDICAL v. veins HX OTHER MEDICAL prostatism HX OTHER MEDICAL diastasis recti HX OTHER MEDICAL 2002 diverticular bleed HX OTHER MEDICAL 2012 Prostate biopsy Hypertension Hypertension Mixed hyperlipidemia Obstructive chronic bronchitis without exacerbation (CMS/HCC) (HCC) Polyp of colon colon polyps PONV (postoperative nausea and vomiting) Past Surgical History: Procedure Laterality Date BACK SURGERY back surgery x 3 BREAST LUMPECTOMY Right Benign / done years ago / COLONOSCOPY 08/12/2016 HERNIA REPAIR Hernia repair HERNIA REPAIR Left 01/24/2022 OTHER SURGICAL HISTORY s/p HNP L spine Medications Prior to Admission Medication Sig Dispense Refill Last Dose albuterol HFA (PROAIR HFA) 90 mcg/actuation inhaler inhale 2 puff by inhalation route every 4 - 6 hours as needed 1 Inhaler 1 01/10/2023 amlodipine-atorvastatin (CADUET) 5-10 mg per tablet Take 1 tablet by mouth daily 01/09/2023 aspirin 81 mg chewable tablet chew 1 tablet by oral route every day 0 0 01/09/2023 calcium carbonate (OS-PINEDA) 1,500 mg (600 mg of elemental calcium) tablet Take 1 tablet (1,500 mg total) by mouth daily. 30 tablet 0 01/09/2023 cholecalciferol (VITAMIN D-3) 5,000 unit tablet Take 1 tablet (5,000 Units total) by mouth daily. 90 tablet 0 01/09/2023 docusate sodium (Colace) 100 mg capsule Take 1 capsule (100 mg total) by mouth 2 (two) times a day for 14 days 28 capsule 2 fluticasone propionate (FLONASE) 50 mcg/actuation nasal spray Administer 50 sprays into each nostril 2 (two) times a day as needed Past Week irbesartan-hydrochlorothiazide (AVALIDE) 150-12.5 mg per tablet 01/09/2023 meclizine (ANTIVERT) 12.5 mg tablet Take 1 tablet (12.5 mg total) by mouth 3 (three) times a day asneeded for dizziness 30 tablet 0 Unknown montelukast (SINGULAIR) 10 mg tablet Take 10 mg by mouth nightly [id number] K-lycop (ONE-A-DAY MEN'S MULTIVITAMIN) 400-20-300 mcg tablet Take one by mouth one time per day 0 0 Unknown ondansetron (ZOFRAN) 4 mg tablet Take 1 tablet (4 mg total) by mouth every 6 (six) hours (Patient not taking: Reported on 02/06/2022) 12 tablet 0 Unknown simvastatin (ZOCOR) 10 mg tablet Take 1 tablet by mouth daily 01/09/2023 tamsulosin (FLOMAX) 0.4 mg capsule,extended release 24hr take 1 capsule by oral route every day 1/2hour following the same meal each day 0 0 01/09/2023 traMADoL (ULTRAM) 50 mg tablet Take 0.5 tablets (25 mg total) by mouth every 6 (six) hours as needed for pain 25 tablet 0 Unknown Trelegy Ellipta 100-62.5-25 mcg inhaler TAKE 1 INHALATION BY MOUTH DAILY 01/09/2023 Allergies Allergen Reactions Miguel A Inhibitors Cough Reaction: Cough, Acetaminophen Unknown Social History Tobacco Use Smoking status: Former Types: Cigarettes Quit date: 2011 Years since quittin.1 Smokeless tobacco: Never Substance and Sexual Activity Drug use: Yes Sexual activity: Defer Partners: Female Alcohol Use: Not At Risk Frequency of Alcohol Consumption: Never Average Number of Drinks: Not on file Frequency of Binge Drinking: Not on file Family History Problem Relation Age of Onset Dementia Mother 87 Dementia; Cancer Mother 87 cancer; Other Father hx not provided; Cancer Brother 60 Cancer -; Bone cancer Brother Brain cancer Brother 62 Cancer -brain; Lung cancer Brother 62 Cancer -lung; Lung cancer Sister Cancer, lung; Brain cancer Sister Review of Systems: 1. Constitutional Positive for fatigue Denies: weight loss, weight gain, fever, chills, night sweats 2. Eyes Denies: change in vision, double vision, eye pain, eye discharge, icterus 3. ENT Denies: change in hearing, ear pain, ear discharge, nose bleed, nasal congestion, sore throat 4. Respiratory Positive for cough and shortness of breath Denies: wheezing, sputum, hemoptysis 5. CV Denies: chest pain, palpitations, syncope, edema 6. GI Denies: abdominal pain, decreased appetite, nausea, vomiting, change in bowel habitus, diarrhea, constipation, melena, BRBPR 7. Denies: dysuria, frequency, hematuria, nocturia, urgency 8. Metabolic Denies: cold intolerance, heat intolerance, polyphagia, polydipsia 9. Neurologic Denies: headache, dizziness, seizure, change in mental status, focal weakness, focal numbness 10. Musculoskeletal Positive for myalgia Denies: joint pain, joint redness, joint swelling, extremity pain 11. Hematologic Denies: bleeding, bruising, hematoma, lymphadenopathy, icterus 12. Skin Denies open wounds, redness, new pigmentation, new change of color OBJECTIVE Vitals: Arrival Vitals Temp 01/10/23 1000 37.1 ??C (98.7 ??F) Pulse 01/10/23 1000 118 Resp 01/10/23 1000 28 BP 01/10/23 1000 148/65 SpO2 01/10/23 1000 91 % Temp src 01/10/23 1000 Oral Heart Rate Source 01/10/23 1606 Monitor Patient Position 01/10/23 1007 Sitting BP Location 01/10/23 1007 Left arm FiO2 (%) -- 24hr Min/Max: Temp Min: 36.4 ??C (97.6 ??F) Max: 37.1 ??C (98.7 ??F) Pulse Min: 88 Max: 118 BP Min: 112/54 Max: 148/65 Resp Min: 22 Max: 30 SpO2 Min: 91 % Max: 98 % Most Recent : Vitals: 01/10/23 1606 BP: 112/54 Pulse: 88 Resp: 22 Temp: 36.4 ??C (97.6 ??F) SpO2: 94% Intake/Output Summary (Last 24 hours) at 01/10/20231906 Last data filed at 01/10/2023 1831 Gross per 24 hour Intake 120 ml Output -- Net 120 ml Physical exam: General: AAO x3 , not in acute distress Eyes: EOMI, KLAUDIA, sclare non icteric Neck: supple, no nuchal ridigity, no gross carotid bruits appreciated ENT: No gross oral lesion, tongue midline, mucosa moist Respiratory: diffuse wheezing b/l upper and lower lobes Cardiovascular: Heart sounds- [id number], no significant murmur or gallop GI: Abdomen-+BS, Non Tender, Non distended, No gross hepatomegaly Lower Ext: No gross edema, pedal artery pulses present bilaterally Neuro: Muscular Strength upper and lower extremities 5/5 bilaterally,e, sensory intact, cranial nerves 2-12 within normal limits, good coordination, normal speech Musculoskeletal: no gross joint erythema, edema, tenderness Genitourinary: No New change Skin: No new change Psychiatric: Normal affect, good judgment Lab/Radiology/Diagnostic Review: Recent Results (from the past 24 hour(s)) CBC with auto differential Collection Time: 01/10/23 10:36 AM Result Value Ref Range WBC 21.2 (H) 3.8 - 9.9 K/cumm Hgb 13.5 13.0 - 17.5 g/dL Hct 40.6 38.9 - 50.3 % Plt 318 150 - 400 K/cumm MPV 9.2 9.1 - 12.3 fL RBC 4.19 (L) 4.30 - 5.80 M/cumm MCV 96.9 (H) 81.3 - 96.4 fL MCH 32.2 27.1 - 33.3 pg MCHC 33.3 32.3 - 35.7 g/dL RDW CV 13.4 11.1 - 14.9 % RDW SD 48.3 (H) 35.7 - 48.1 fL NRBC abs 0.00 0.00 - 0.01 K/cumm Pro B-type natriuretic peptide Collection Time: 01/10/23 10:36 AM Result Value Ref Range NT-proBNP 316 <=450 pg/mL Sepsis Lactate w/ Reflex Collection Time: 01/10/23 10:36 AM Result Value Ref Range Sepsis Lactate 1.6 0.7 - 2.0 mmol/L Troponin T high-sensitivity series (baseline, 2hr, 4hr, 6hr) Collection Time: 01/10/23 10:36 AM Result Value Ref Range Trop T hs 18 <=22 ng/L Differential, auto Collection Time: 01/10/23 10:36 AM Result Value Ref Range Neutrophil abs 18.1 (H) 1.7 - 6.5 K/cumm Imm gran abs 0.1 0.0 - 0.1 K/cumm Lymphocyte abs 2.0 0.8 - 3.3 K/cumm Monocyte abs 0.9 (H) 0.2 - 0.8 K/cumm Eosinophil abs 0.1 0.0 - 0.5 K/cumm Basophil abs 0.0 0.0 - 0.1 K/cumm Neutrophil pct 85.3 % Imm gran pct 0.4 % Lymphocyte pct 9.6 % Monocyte pct 4.2 % Eosinophil pct 0.3 % Basophil pct 0.2 % Influenza A/B, RSV, and COVID-19 PCR Nasopharyngeal Collection Time: 01/10/23 12:29 PM Specimen: Nasopharyngeal Result Value Ref Range COVID-19 RNA Negative Negative Influenza A RNA Negative Negative Influenza B RNA Negative Negative RSV RNA Negative Negative Blood gas, venous Collection Time: 01/10/23 12:42 PM Result Value Ref Range pH, Venous 7.43 7.32 - 7.43 PCO2, Venous 42 40 - 50 mmHg PO2, Venous 84 mmHg HCO3 Venous, Calculated 27 20 - 30 mmol/L BE, venous 3 mmol/L Troponin T high-sensitivity 2-hour Collection Time: 01/10/23 12:44 PM Result Value Ref Range Trop T hs 18 <=22 ng/L Trop T hs delta 0 ng/L Trop T hs interp Insignificant Urinalysis reflex to microscopic and culture Urine Collection Time: 01/10/23 1:16 PM Specimen: Urine Result Value Ref Range Color, ur Yellow Yellow Clarity, ur Clear Clear Specific gravity, ur 1.023 1.003 - 1.030 pH, urine 7.0 Protein, ur ql 1+ (A) Negative Glucose, ur ql Negative Negative Ketones, ur Negative Negative Bilirubin, ur Negative Negative Blood, ur Negative Negative Urobilinogen, ur 2.0 (A) <2.0 mg/dL Nitrite, ur Negative Negative Leukocyte esterase, ur Negative Negative UA reflex comment Reflex to microscopic UA will be performed. Urinalysis, microscopic only Collection Time: 01/10/23 1:16 PM Result Value Ref Range WBC, ur 0-5 0 - 5 /HPF RBC, ur 11-20 (A) 0 - 2 /HPF Epithelial cells, squamous, ur 1-5 0 - 5 /HPF Mucous, ur Present (A) Hyaline casts, ur 1-5 0 - 10 /LPF Culture Reflex Comment Reflex conditions for urine culture (WBC >10) not met. Troponin T high-sensitivity 4-hour Collection Time: 01/10/23 2:52 PM Result Value Ref Range Trop T hs 16 <=22 ng/L Trop T hs delta -2 ng/L Trop T hs interp Insignificant Troponin T high-sensitivity 6-hour Collection Time: 01/10/23 5:04 PM Result Value Ref Range Trop T hs 15 <=22 ng/L Trop T hs delta -3 ng/L Trop T hs interp Insignificant ECG 12 lead Result Date: 01/10/2023 Narrative: Vent Rate: 112 bpm RR Interval: 533 msec NV Interval: 145 msec QRS Duration: 103 msec QTInterval: 305 msec QTC Interval: 371 msec P-R-T [place]: 59 - -35 - 78 degrees SINUS TACHYCARDIA WITH OCCASIONAL SUPRAVENTRICULAR PREMATURE COMPLEXES LEFT AXIS DEVIATION [QRS AXIS < -30] ABNORMAL ECGCompared to prior EKG, heart rate has increased PVCs are no longer present Electronically Signed By: Reji Maloney MD XR Chest 1 Vw Portable Result Date: 01/10/2023 Narrative: EXAM DESCRIPTION: XR CHEST 1 VIEW REASON FOR STUDY: dyspnea EMS has o2 sats of 88% on room air. Placed on 2L Increase in sats to 90s. Nev treatment given enroute. States he has been sick with cough and body aches for two weeks. Negative covid test this morning. TECHNIQUE: Single radiographic view of the chest acquired. COMPARISON: Chest CT performed 01/16/2022 FINDINGS: LUNGS/PLEURA: No focal consolidation or pneumothorax. No pleural effusion. HEART/MEDIASTINUM: Heart size is normal.Normal mediastinal and hilar contours. HARDWARE/LINES/TUBES: None. BONES: No acute findings. OTHER:No other significant finding. IMPRESSION: No acute cardiopulmonary abnormality. THIS IS AN ELECTRONI GUSTAVO VERIFIED FINAL REPORT 01/10/2023 10:35 AM - Electronically signed by Nahid Zavala M.D. LL: LL Report ID: [id number] Reading Location: [id number] MRI Shoulder Right WO Contrast Result Date: 01/08/2023 Narrative: EXAM DESCRIPTION: MRI SHOULDER RIGHT WO CONTRAST REASON FOR STUDY: Pain in right shoulder 5 weeks ago pt injured RT shoulder while playing with great grandson. Pain upper humerus and anterior aspect of joint. Sharp stabbing pain when driving. Loss in ROM. Difficulty lifting RT arm up. Pthas COPD, difficulty holding still due to coughing. Tried to repeat for motion. TECHNIQUE: Multiplanar, multisequence MRI of the right shoulder was performed. COMPARISON: None available FINDINGS: Motion artifact compromises evaluation. Bones and Joint: There is moderate to severe acromioclavicular osteophyte with inferiorly projecting osteophytes. Type 2 acromion. No acute fracture. No effusion. Mild glenohumeral osteoarthritis. Rotator Cuff: Supraspinatus, anterior infraspinatus and superior subscapularis tendinosis. There is at least high-grade partial- thickness bursal surface tear of the anterior distal supraspinatus tendon at the footprint measuring 16 x 15 mm, although small full-thickness component is possible. Small partial-thickness articular surface subscapularis tendon tear. Biceps Tendon: The long head of the biceps tendon is located in the bicipital groove and appears intact. There is tendinosis of the intra-articular portion of the tendon. Labrum: Inadequately evaluated without intraarticular contrast administration. Given this limitation, there is abnormal signal in the superior glenoid labrum as evidence of labral tear. Bursa: Subacromial-subdeltoid bursitis. Other:The suprascapular notch and quadrilateral space appear normal. Normal rotator cuff musculature volume. IMPRESSION: 1. High-grade partial- thickness bursal surface tear of a tendinopathic supraspinatustendon. Possible full-thickness component. 2. Infraspinatus and subscapularis tendinosis. 3. Subacromial-subdeltoid bursitis. 4. Evidence of glenoid labral tear. THIS IS AN ELECTRONICALLY VERIFIED FINAL REPORT 01/08/2023 2:02 PM - Electronically signed by Sam Salazar M.D. JR: Report ID: [id number] Reading Location: [place] [id number] Current Facility-Administered Medications Medication Dose Route Frequency Provider Last Rate Last Admin amlodipine-atorvastatin (CADUET) 5-10 mg per tablet 1 tablet 1 tablet oral Daily Donna Escoto MD aspirin chewable tablet 81 mg 81 mg oral Daily Donna Escoto MD azithromycin (ZITHROMAX) tablet 500 mg 500 mg oral Daily Sweetie Castillo MD 500 mg at 01/10/23 1145 cefTRIAXone (ROCEPHIN) 1,000 mg/10 mL in sterile water (premix) 1,000 mg 1,000 mg intravenous Q24H [facility] Vanesa Daniels MD 1,000 mg at 01/10/23 1145 cholecalciferol (VITAMIN D-3) tablet 2,000 Units 2,000 Units oral Daily Donna Escoto MD ipratropium-albuteroL (DUO-NEB) 0.5-2.5 mg/3 mL nebulizer solution 3 mL 3 mL nebulization Q6H [place] (RT) Vanesa Daniels MD 3 mL at 01/10/23 1121 irbesartan-hydrochlorothiazide (AVALIDE) 150-12.5 mg per tablet 1 tablet 1 tablet oral Daily Donna Escoto MD [START ON 01/11/2023] methylPREDNISolone sodium succinate (SOLU-medrol) preservative free injection 40 mg 40 mg intravenous Q6H [facility] Donna Escoto MD montelukast (SINGULAIR) tablet 10 mg 10 mg oral Nightly Donna Escoto MD nicotine (NICODERM CQ) 21 mg patch 24 hour 1 patch 1 patch transdermal Daily Vanesa Daniels MD tamsulosin (FLOMAX) extended release capsule 0.4 mg 0.4 mg oral Daily with dinner Donna Escoto MD traMADoL (ULTRAM) tablet 25 mg 25 mg oral Q6H PRN Donna Escoto MD A/P 1.Chronic obstructive pulmonary disease with acute exacerbation, possible superimposed bacterial infections/community acquired pneumonia 2.Acute hypoxic respiratory failure Pt presented with worsening dyspnea. Afebrile, wbc elevated 21.2. Chest X ray negative for consolidation Will c/w Solu-Medrol 40 mg IV q6h Duo nebulizer scheduled q6h Will substitute Trelegy Ellipta with Symbicort while in hospital Continue with Rocephin and Azithromycin for empiric pneumonia coverage, check procalcitonin and mycoplasma serology Continue supplemental oxygen, wean down as tolerated, currently on 4 liters [place] Pulmonary hygiene, early mobility, PT 3.Mixed hyperlipidemia Continue atorvastatin 10 mg 4.Benign hypertension Currently normotensive Continue amlodipine 5 mg 5.Right shoulder pain -Patient has 2 month history of right shoulder pain after his shoulder was injured while playing with his grandchild. -MRI reviewed showed partial-thickness bursal surface tear of a supraspinatus tendon. Possible full-thickness component. Infraspinatus and subscapularis tendinosis. Subacromial-subdeltoid bursitis. Evidence of glenoid labral tear. -pain control Tramadol 25 mg q6h prn -PT Advance Care Planning Advance Care Planning Conversation Pertinent diagnoses: COPD The patient and/or family consented to a voluntary Advance Care Planning conversation. Individuals present for the conversation: patient Summary of the conversation: CPR, intubation, goals of care, intensity of care discussed with the patient. Pt desires: full code, full treatment. Outcome of the conversation and documents completed (select all that apply): Full code, full treatment I spent 7 minutes providing separately identifiable ACP services with the patient and/or surrogate decision maker in a voluntary, in-person conversation discussing the patient's wishes and goals as detailed in the above note. Donna Escoto MD DVT prophylaxis: lovenox Code status: full Anticipated length of stay to be more than 2 midnights [facility]-high Principal Problem: COPD exacerbation (CMS/HCC) (HCC) Active Problems: Benign hypertension Basal cell carcinoma of lower leg, right Resolved Problems: No resolved hospital problems. Voice recognition software [employer] was used dictate and transcribe this document. Office Equipment Technician variances may occur. Despite proofreading, typographical errors may occur. Donna Escoto MD Date of Service: 01/10/2023 AURANT LINE SERVER AURANT LINE SERVER documented in this encounter Consult Notes * Raffy Oneil MD - 01/14/2023 11:25 AM CSTAssociated Order(s): IP CONSULT TO CARDIOLOGY Images from the original note were not included. H&P Note Patient Name: Xavier Juan Date of : 1940 Primary Physician: Cassius London MD Admission Date: 01/10/2023 Length of Stay: 2 Reason for consult Shortness of breath Chief Complaint Chief Complaint Patient presents with Shortness of Breath HPI Xavier Juan is a 82 y.o. male presented to the hospital with shortness of breath for 4 days that was getting worse associated with orthopnea and wheezes when lying down. He also noticed lower extremity swelling that was bilateral mainly at the ankle. He was admitted with a diagnosis of COPD and pneumonia and converted to atrial fibrillation with RVR in the morning. His heart rate was in the 150s. He converted back to sinus rhythm at 10:00 a.m. today. Past Medical History Past Medical History: Diagnosis Date Asbestosis (CMS/HCC) (HCC) asbestosis Cancer (CMS/HCC) (HCC) biopsy showed small area of prostate cancer Chronic diarrhea COPD (chronic obstructive pulmonary disease) (CMS/HCC) (HCC) HX OTHER MEDICAL dyslipidemia HX OTHER MEDICAL PAD HX OTHER MEDICAL ED HX OTHER MEDICAL 01-pulmonolgist HX OTHER MEDICAL v. veins HX OTHER MEDICAL prostatism HX OTHER MEDICAL diastasis recti HX OTHER MEDICAL 2002 diverticular bleed HX OTHER MEDICAL 2012 Prostate biopsy Hypertension Hypertension Mixed hyperlipidemia Obstructive chronic bronchitis without exacerbation (CMS/HCC) (HCC) Polyp of colon colon polyps PONV (postoperative nausea and vomiting) Past Surgical History Past Surgical History: Procedure Laterality Date BACK SURGERY back surgery x 3 BREAST LUMPECTOMY Right Benign / done years ago / COLONOSCOPY 08/12/2016 HERNIA REPAIR Hernia repair HERNIA REPAIR Left 01/24/2022 OTHER SURGICAL HISTORY s/p HNP L spine Medications Medications Prior to Admission Medication Sig Dispense Refill Last Dose albuterol HFA (PROAIR HFA) 90 mcg/actuation inhaler inhale 2 puff by inhalation route every 4 - 6 hours as needed 1 Inhaler 1 01/10/2023 amlodipine-atorvastatin (CADUET) 5-10 mg per tablet Take 1 tablet by mouth daily 01/09/2023 aspirin 81 mg chewable tablet chew 1 tablet by oral route every day 0 0 01/09/2023 calcium carbonate (OS-PINEDA) 1,500 mg (600 mg of elemental calcium) tablet Take 1 tablet (1,500 mg total) by mouth daily. 30 tablet 0 01/09/2023 cholecalciferol (VITAMIN D-3) 5,000 unit tablet Take 1 tablet (5,000 Units total) by mouth daily. 90 tablet 0 01/09/2023 docusate sodium (Colace) 100 mg capsule Take 1 capsule (100 mg total) by mouth 2 (two) times a day for 14 days 28 capsule 2 fluticasone propionate (FLONASE) 50 mcg/actuation nasal spray Administer 50 sprays into each nostril 2 (two) times a day as needed Past Week irbesartan-hydrochlorothiazide (AVALIDE) 150-12.5 mg per tablet 01/09/2023 meclizine (ANTIVERT) 12.5 mg tablet Take 1 tablet (12.5 mg total) by mouth 3 (three) times a day asneeded for dizziness 30 tablet 0 Unknown montelukast (SINGULAIR) 10 mg tablet Take 10 mg by mouth nightly [id number]-vit K-lycop (ONE-A-DAY MEN'S MULTIVITAMIN) 400-20-300 mcg tablet Take one by mouth one time per day 0 0 Unknown ondansetron (ZOFRAN) 4 mg tablet Take 1 tablet (4 mg total) by mouth every 6 (six) hours (Patient not taking: Reported on 02/06/2022) 12 tablet 0 Unknown simvastatin (ZOCOR) 10 mg tablet Take 1 tablet by mouth daily 01/09/2023 tamsulosin (FLOMAX) 0.4 mg capsule,extended release 24hr take 1 capsule by oral route every day 1/2hour following the same meal each day 0 0 01/09/2023 traMADoL (ULTRAM) 50 mg tablet Take 0.5 tablets (25 mg total) by mouth every 6 (six) hours as needed for pain 25 tablet 0 Unknown Trelegy Ellipta 100-62.5-25 mcg inhaler TAKE 1 INHALATION BY MOUTH DAILY 01/09/2023 Allergies Allergies Allergen Reactions Miguel A Inhibitors Cough Reaction: Cough, Acetaminophen Unknown Family History Family History Problem Relation Age of Onset Dementia Mother 87 Dementia; Cancer Mother 87 cancer; Other Father hx not provided; Cancer Brother 60 Cancer -; Bone cancer Brother Brain cancer Brother 62 Cancer -brain; Lung cancer Brother 62 Cancer -lung; Lung cancer Sister Cancer, lung; Brain cancer Sister Social History Social History Tobacco Use Smoking status: Former Types: Cigarettes Quit date: 2011 Years since quittin.1 Smokeless tobacco: Never Substance and Sexual Activity Drug use: Yes Sexual activity: Defer Partners: Female Alcohol Use: Not At Risk Frequency of Alcohol Consumption: Never Average Number of Drinks: Not on file Frequency of Binge Drinking: Not on file Review of Systems Systems review are negative except as noted above Objective BP 110/68 (BP Location: Left arm, Patient Position: Sitting) Pulse 59 Temp (!) 35.9 ??C (96.6 ??F) (Temporal) Resp 20 Ht 172.7 cm (5' 8 ) Wt 91.3 kg (201 lb 4.5 oz) Comment: unsure if bed was zero'd prior SpO2 94% BMI 30.60 kg/m?? General appearance: no distress, no cyanosis, able to lie flat Eyes: anicteric sclera, no conjunctival hemorrhage; PERRLA HENT: Atraumatic; oropharynx clear with moist mucous membranes and no mucosal ulcerations Neck: Trachea midline; supple, no thyromegaly or lymphadenopathy, no JVD, no carotid bruit Lungs: Bilateral wheezes, with normal respiratory effort and no intercostal retractions CV: RRR, apical impulse is barely palpable or normal, no thrill, no MRG, Abdomen: Soft, non-tender; no masses or HSM Extremities: Positive peripheral edema, intact pulses, no clubbing Skin: Normal temperature, turgor and texture; no rash, patachaie or ulcers or Sc nodules Psych: Appropriate affect, alert and oriented to person, place and time Neuro: no focal weakness and grossly intact cranial nerve Diagnostics Recent Results (from the past 24 hour(s)) Legionella antigen Urine Collection Time: 01/13/23 4:14 PM Specimen: Urine Result Value Ref Range Legionella Ag Negative Negative Sodium, urine, random Collection Time: 01/13/23 4:14 PM Result Value Ref Range Sodium, ur 76 mmol/L Protime-INR Collection Time: 01/13/23 11:15 PM Result Value Ref Range PT 10.7 9.2 - 13.5 sec INR 1.0 0.9 - 1.2 aPTT Collection Time: 01/13/23 11:15 PM Result Value Ref Range aPTT 28 27 - 37 sec CBC with auto differential Collection Time: 01/14/23 7:44 AM Result Value Ref Range WBC 16.4 (H) 3.8 - 9.9 K/cumm Hgb 13.1 13.0 - 17.5 g/dL Hct 39.7 38.9 - 50.3 % Plt 351 150 - 400 K/cumm MPV 8.8 (L) 9.1 - 12.3 fL RBC 4.04 (L) 4.30 - 5.80 M/cumm MCV 98.3 (H) 81.3 - 96.4 fL MCH 32.4 27.1 - 33.3 pg MCHC 33.0 32.3 - 35.7 g/dL RDW CV 13.4 11.1 - 14.9 % RDW SD 48.5 (H) 35.7 - 48.1 fL NRBC abs 0.00 0.00 - 0.01 K/cumm Renal function panel Collection Time: 01/14/23 7:44 AM Result Value Ref Range Sodium 138 135 - 145 mmol/L Potassium, pl 4.7 3.3 - 4.9 mmol/L Chloride 103 97 - 110 mmol/L CO2 27 22 - 32 mmol/L Anion gap 8 2 - 15 mmol/L BUN 34 (H) 8 - 25 mg/dL Creatinine 1.34 (H) 0.80 - 1.30 mg/dL Glucose 81 70 - 199 mg/dL Calcium 8.9 8.5 - 10.3 mg/dL Phosphorus, pl 2.7 2.3 - 4.5 mg/dL Albumin 3.0 (L) 3.5 - 5.0 g/dL Pro B-type natriuretic peptide Collection Time: 01/14/23 7:44 AM Result Value Ref Range NT-proBNP 3,863 (H) <=450 pg/mL Magnesium Collection Time: 01/14/23 7:44 AM Result Value Ref Range Magnesium 1.8 1.4 - 2.5 mg/dL Differential, auto Collection Time: 01/14/23 7:44 AM Result Value Ref Range Neutrophil abs 12.0 (H) 1.7 - 6.5 K/cumm Imm gran abs 0.1 0.0 - 0.1 K/cumm Lymphocyte abs 3.2 0.8 - 3.3 K/cumm Monocyte abs 1.0 (H) 0.2 - 0.8 K/cumm Eosinophil abs 0.0 0.0 - 0.5 K/cumm Basophil abs 0.0 0.0 - 0.1 K/cumm Neutrophil pct 73.7 % Imm gran pct 0.5 % Lymphocyte pct 19.4 % Monocyte pct 6.2 % Eosinophil pct 0.1 % Basophil pct 0.1 % eGFR Collection Time: 01/14/23 7:44 AM Result Value Ref Range eGFR 53 mL/min/1.73 m2 EK01/13/2023 Assessment/Plan 82 y.o. male seen for Paroxysmal atrial fibrillation currently in sinus rhythm Acute on chronic diastolic heart failure COPD in atypical pneumonia PLAN: Apixaban 5 mg b.i.d. DC aspirin Metoprolol 25 mg b.i.d. Transthoracic echocardiogram Add Lasix 40 mg daily Check BMP in 3 days Follow-up with cardiology in the clinic Care plan discussed with the patient. Raffy Oneil MD 01/14/2023 11:25 AM AURANT LINE SERVER * Glenn Cabrera MD - 01/13/2023 2:07 PM CSTAssociated Order(s): IP CONSULT TO NEPHROLOGY Nephrology Consult Reason for Consult: ELI Requesting Provider: Dr. Jaret NICHOLAS Patient is a 82 y.o. male with chief complaint of eli. Consult requested by: same Reason for consult: ELI HPI: History of Present Illness: Patient is a 82 y.o. year old,White male with a history of Past Medical History: Diagnosis Date Asbestosis (CMS/HCC) (HCC) asbestosis Cancer (CMS/HCC) (HCC) biopsy showed small area of prostate cancer Chronic diarrhea COPD (chronic obstructive pulmonary disease) (CMS/HCC) (HCC) HX OTHER MEDICAL dyslipidemia HX OTHER MEDICAL PAD HX OTHER MEDICAL ED HX OTHER MEDICAL 01-pulmonolgist HX OTHER MEDICAL v. veins HX OTHER MEDICAL prostatism HX OTHER MEDICAL diastasis recti HX OTHER MEDICAL 2002 diverticular bleed HX OTHER MEDICAL 2012 Prostate biopsy Hypertension Hypertension Mixed hyperlipidemia Obstructive chronic bronchitis without exacerbation (CMS/HCC) (HCC) Polyp of colon colon polyps PONV (postoperative nausea and vomiting) , who comes in today for evaluation. The patient's present problem has been present for several days. Past Medical History: Diagnosis Date Asbestosis (CMS/HCC) (HCC) asbestosis Cancer (CMS/HCC) (HCC) biopsy showed small area of prostate cancer Chronic diarrhea COPD (chronic obstructive pulmonary disease) (CMS/HCC) (HCC) HX OTHER MEDICAL dyslipidemia HX OTHER MEDICAL PAD HX OTHER MEDICAL ED HX OTHER MEDICAL 01-pulmonolgist HX OTHER MEDICAL v. veins HX OTHER MEDICAL prostatism HX OTHER MEDICAL diastasis recti HX OTHER MEDICAL 2002 diverticular bleed HX OTHER MEDICAL 2012 Prostate biopsy Hypertension Hypertension Mixed hyperlipidemia Obstructive chronic bronchitis without exacerbation (CMS/HCC) (HCC) Polyp of colon colon polyps PONV (postoperative nausea and vomiting) Past Surgical History: Procedure Laterality Date BACK SURGERY back surgery x 3 BREAST LUMPECTOMY Right Benign / done years ago / COLONOSCOPY 08/12/2016 HERNIA REPAIR Hernia repair HERNIA REPAIR Left 01/24/2022 OTHER SURGICAL HISTORY s/p HNP L spine Medications Prior to Admission Medication Sig Dispense Refill Last Dose albuterol HFA (PROAIR HFA) 90 mcg/actuation inhaler inhale 2 puff by inhalation route every 4 - 6 hours as needed 1 Inhaler 1 01/10/2023 amlodipine-atorvastatin (CADUET) 5-10 mg per tablet Take 1 tablet by mouth daily 01/09/2023 aspirin 81 mg chewable tablet chew 1 tablet by oral route every day 0 0 01/09/2023 calcium carbonate (OS-PINEDA) 1,500 mg (600 mg of elemental calcium) tablet Take 1 tablet (1,500 mg total) by mouth daily. 30 tablet 0 01/09/2023 cholecalciferol (VITAMIN D-3) 5,000 unit tablet Take 1 tablet (5,000 Units total) by mouth daily. 90 tablet 0 01/09/2023 docusate sodium (Colace) 100 mg capsule Take 1 capsule (100 mg total) by mouth 2 (two) times a day for 14 days 28 capsule 2 fluticasone propionate (FLONASE) 50 mcg/actuation nasal spray Administer 50 sprays into each nostril 2 (two) times a day as needed Past Week irbesartan-hydrochlorothiazide (AVALIDE) 150-12.5 mg per tablet 01/09/2023 meclizine (ANTIVERT) 12.5 mg tablet Take 1 tablet (12.5 mg total) by mouth 3 (three) times a day asneeded for dizziness 30 tablet 0 Unknown montelukast (SINGULAIR) 10 mg tablet Take 10 mg by mouth nightly sxxgdwdf-nso-fzqwd-vit K-lycop (ONE-A-DAY MEN'S MULTIVITAMIN) 400-20-300 mcg tablet Take one by mouth one time per day 0 0 Unknown ondansetron (ZOFRAN) 4 mg tablet Take 1 tablet (4 mg total) by mouth every 6 (six) hours (Patient not taking: Reported on 02/06/2022) 12 tablet 0 Unknown simvastatin (ZOCOR) 10 mg tablet Take 1 tablet by mouth daily 01/09/2023 tamsulosin (FLOMAX) 0.4 mg capsule,extended release 24hr take 1 capsule by oral route every day 1/2hour following the same meal each day 0 0 01/09/2023 traMADoL (ULTRAM) 50 mg tablet Take 0.5 tablets (25 mg total) by mouth every 6 (six) hours as needed for pain 25 tablet 0 Unknown Trelegy Ellipta 100-62.5-25 mcg inhaler TAKE 1 INHALATION BY MOUTH DAILY 01/09/2023 Allergies Allergen Reactions Miguel A Inhibitors Cough Reaction: Cough, Acetaminophen Unknown Social History Tobacco Use Smoking status: Former Types: Cigarettes Quit date: 2011 Years since quittin.1 Smokeless tobacco: Never Substance and Sexual Activity Drug use: Yes Sexual activity: Defer Partners: Female Alcohol Use: Not At Risk Frequency of Alcohol Consumption: Never Average Number of Drinks: Not on file Frequency of Binge Drinking: Not on file Family History Problem Relation Age of Onset Dementia Mother 87 Dementia; Cancer Mother 87 cancer; Other Father hx not provided; Cancer Brother 60 Cancer -; Bone cancer Brother Brain cancer Brother 62 Cancer -brain; Lung cancer Brother 62 Cancer -lung; Lung cancer Sister Cancer, lung; Brain cancer Sister Review of Systems:Review of Systems OBJECTIVEBEGIN Vitals: 24hr Min/Max: Temp Min: 36.4 ??C (97.5 ??F) Max: 36.7 ??C (98.1 ??F) Pulse Min: 57 Max: 86 BP Min: 115/71 Max: 139/75 Resp Min: 16 Max: 24 SpO2 Min: 91 % Max: 99 % Most Recent: Vitals: 01/13/23 1059 BP: 126/73 Pulse: 77 Resp: 24 Temp: 36.4 ??C (97.5 ??F) SpO2: 97% I/O last 2 completed shifts: In: 970 [P.O.:960; IV Piggyback:10] Out: 600 [Urine:600] I/O this shift: In: 480 [P.O.:480] Out: - Lab/Radiology/Diagnostic Review: Laboratory review: Lab results in the last 24 hours: Recent Results (from the past 24 hour(s)) CBC with auto differential Collection Time: 01/13/23 4:44 AM Result Value Ref Range WBC 24.8 (H) 3.8 - 9.9 K/cumm Hgb 11.9 (L) 13.0 - 17.5 g/dL Hct 36.8 (L) 38.9 - 50.3 % Plt 360 150 - 400 K/cumm MPV 9.4 9.1 - 12.3 fL RBC 3.73 (L) 4.30 - 5.80 M/cumm MCV 98.7 (H) 81.3 - 96.4 fL MCH 31.9 27.1 - 33.3 pg MCHC 32.3 32.3 - 35.7 g/dL RDW CV 13.6 11.1 - 14.9 % RDW SD 49.1 (H) 35.7 - 48.1 fL NRBC abs 0.00 0.00 - 0.01 K/cumm Basic metabolic panel Collection Time: 01/13/23 4:44 AM Result Value Ref Range Sodium 139 135 - 145 mmol/L Potassium, pl 4.5 3.3 - 4.9 mmol/L Chloride 103 97 - 110 mmol/L CO2 26 22 - 32 mmol/L Anion gap 10 2 - 15 mmol/L BUN 40 (H) 8 - 25 mg/dL Creatinine 1.51 (H) 0.80 - 1.30 mg/dL Glucose 112 70 - 199 mg/dL Calcium 8.8 8.5 - 10.3 mg/dL Differential, auto Collection Time: 01/13/23 4:44 AM Result Value Ref Range Neutrophil abs 22.0 (H) 1.7 - 6.5 K/cumm Imm gran abs 0.2 (H) 0.0 - 0.1 K/cumm Lymphocyte abs 1.8 0.8 - 3.3 K/cumm Monocyte abs 0.9 (H) 0.2 - 0.8 K/cumm Eosinophil abs 0.0 0.0 - 0.5 K/cumm Basophil abs 0.0 0.0 - 0.1 K/cumm Neutrophil pct 88.5 % Imm gran pct 0.6 % Lymphocyte pct 7.1 % Monocyte pct 3.6 % Eosinophil pct 0.0 % Basophil pct 0.2 % eGFR Collection Time: 01/13/23 4:44 AM Result Value Ref Range eGFR 46 mL/min/1.73 m2 Imaging review: I have reviewed the result(s) yes Additional Labs: CBC/Dif: Lab Results Component Value Date WBC 24.8 (H) 01/13/2023 NEUTOPHILPCT 88.5 01/13/2023 RBC 3.73 (L) 01/13/2023 HCT 36.8 (L) 01/13/2023 MCV 98.7 (H) 01/13/2023 MPV 9.4 01/13/2023 RDWCV 13.6 01/13/2023 RDWSD 49.1 (H) 01/13/2023 NRBCABS 0.00 01/13/2023 NEUTROABS 22.0 (H) 01/13/2023 LYMPHSABS 1.8 01/13/2023 MONOPCT 3.6 01/13/2023 EOSPCT 0.0 01/13/2023 EOSABS 0.0 01/13/2023 Renal Function Panel: Lab Results Component Value Date GLUCOSE 112 01/13/2023 POTASSIUM 4.5 01/13/2023 CO2 26 01/13/2023 CALCIUM 8.8 01/13/2023 CHLORIDE 103 01/13/2023 BUNSER 40 (H) 01/13/2023 CREATININE 1.51 (H) 01/13/2023 ANIONGAP 10 01/13/2023 Urine Chemistry: Lab Results Component Value Date GLUCOSEU Negative 06/05/2016 Ua: No results found for: SPECGRAVU, PHURINE, RBCU, LEUKESTUR, GLUCOSEU, SQUAMEPIU, NITRITEU, KETONESU Ua Micro: No results found for: RBCU, WBCU, EPIU, YEASTU, RBCCASTU, WBCCASTU, BROADCASTU, FATCASTU,GRANCASTU, EPICASTU, HYALCASTU, MIXCASTU, WAXCASTU, AMORPHCRYU, CACARBCRYU, CAOXALCRU, CAPHOSCRYU, CYSCRYU, LEUCRYU, TRIPHOCRYU, TYRCRYU, URATECRYU, BILICRYU, TRANSEPIU, MICROALBUR, RENEPIU, BACTERIAU 24 Hour Urine: No results found for: URINEVOLUME, [id number], CREATUR, [id number], CRCLEARANCE Assessment /Plan Principal Problem: COPD exacerbation (CMS/HCC) (HCC) Active Problems: Benign hypertension Basal cell carcinoma of lower leg, right Hard to say with certainty that we have ELI, due to the lab gap, and his prior CKD. To the extent that we do, it's likely a complication of his pneumonia, mild and stable. [employer] * Abraham Macdonald MD - 01/12/2023 11:11 AM CSTAssociated Order(s): IP CONSULT TO INFECTIOUS DISEASES Consultation Infectious Diseases Reason for Consult: Possible atypical pneumonias Referring Physician: Dana Chief complaint: Shortness of breath cough HPI: Xavier Juan is a 82 y.o. male past medical history positive for asbestosis, COPD, smoker, hypertension admitted to the hospital on January 10 after complaining of productive cough shortness of breath body aches that started 2 weeks prior to the admission. His had similar symptoms prior to him. Patient was evaluated in urgent care where oxygen saturation found low and he was referred tot emergency room for further evaluation. No history of fever or chills. On initial evaluation leukocytosis found up to 21,000, a chest x-ray was reported unremarkable. Patient was started onsteroids in the emergency department. Now her white count went up to 32,000. His overall condition have improved patient reports minimal cough and minimal shortness of breath at this time. We have been consulted by for suggestions on management. Past Medical History: Past Medical History: Diagnosis Date Asbestosis (CMS/HCC) (HCC) asbestosis Cancer (CMS/HCC) (HCC) biopsy showed small area of prostate cancer Chronic diarrhea COPD (chronic obstructive pulmonary disease) (CMS/HCC) (HCC) HX OTHER MEDICAL dyslipidemia HX OTHER MEDICAL PAD HX OTHER MEDICAL ED HX OTHER MEDICAL 01-pulmonolgist HX OTHER MEDICAL v. veins HX OTHER MEDICAL prostatism HX OTHER MEDICAL diastasis recti HX OTHER MEDICAL 2003 diverticular bleed HX OTHER MEDICAL 2013 Prostate biopsy Hypertension Hypertension Mixed hyperlipidemia Obstructive chronic bronchitis without exacerbation (CMS/HCC) (HCC) Polyp of colon colon polyps PONV (postoperative nausea and vomiting) Surgical History Past Surgical History: Procedure Laterality Date BACK SURGERY back surgery x 3 BREAST LUMPECTOMY Right Benign / done years ago / COLONOSCOPY 08/12/2016 HERNIA REPAIR Hernia repair HERNIA REPAIR Left 01/24/2022 OTHER SURGICAL HISTORY s/p HNP L spine Social History Social History Tobacco Use Smoking status: Former Types: Cigarettes Quit date: 2011 Years since quittin.1 Smokeless tobacco: Never Substance and Sexual Activity Drug use: Yes Sexual activity: Defer Partners: Female Alcohol Use: Not At Risk Frequency of Alcohol Consumption: Never Average Number of Drinks: Not on file Frequency of Binge Drinking: Not on file Family Medical History Family History Problem Relation Age of Onset Dementia Mother 87 Dementia; Cancer Mother 87 cancer; Other Father hx not provided; Cancer Brother 60 Cancer -; Bone cancer Brother Brain cancer Brother 62 Cancer -brain; Lung cancer Brother 62 Cancer -lung; Lung cancer Sister Cancer, lung; Brain cancer Sister Allergies Allergies Allergen Reactions Miguel A Inhibitors Cough Reaction: Cough, Acetaminophen Unknown Medications Current Facility-Administered Medications: amLODIPine (NORVASC) tablet 5 mg, 5 mg, oral, Daily, 5 mg at 01/12/23 0850 AND atorvastatin (LIPITOR) tablet 10 mg, 10 mg, oral, Daily, Donna Escoto MD, 10 mg at 01/12/23 0850 aspirin chewable tablet 81 mg, 81 mg, oral, Daily, Donna Escoto MD, 81 mg at 01/12/23 0850 budesonide-formoteroL (SYMBICORT) 160-4.5 mcg/actuation inhaler 2 puff, 2 puff, inhalation, BID (RT), Donna Escoto MD, 2 puff at 01/12/23 0824 cefTRIAXone (ROCEPHIN) 1,000 mg/10 mL in sterile water (premix) 1,000 mg, 1,000 mg, intravenous, Q24H KAYE, Vanesa Daniels MD, 1,000 mg at 01/12/23 0850 cholecalciferol (VITAMIN D-3) tablet 2,000 Units, 2,000 Units, oral, Daily, Donna Escoto MD, 2,000 Units at 01/12/23 0850 enoxaparin (LOVENOX) syringe 40 mg, 40 mg, subcutaneous, Daily-2100, Donna Escoto MD, 40 mg at 01/11/232014 irbesartan (AVAPRO) tablet 150 mg, 150 mg, oral, Daily, 150 mg at 01/12/23 0850 AND hydroCHLOROthiazide (HYDRODIURIL) tablet 12.5 mg, 12.5 mg, oral, Daily, Donna Escoto MD, 12.5 mg at 01/12/23 0850 ipratropium-albuteroL (DUO-NEB) 0.5-2.5 mg/3 mL nebulizer solution 3 mL, 3 mL, nebulization, Q6H PRN (RT), Diomedes Cortez MD methylPREDNISolone sodium succinate (SOLU-medrol) preservative free injection 40 mg, 40 mg, intravenous, Q6H KAYE, Donna Escoto MD, 40 mg at 01/12/23 05 montelukast (SINGULAIR) tablet 10 mg, 10 mg, oral, Nightly, Donna Escoto MD, 10 mg at 01/11/232014 nicotine (NICODERM CQ) 21 mg patch 24 hour 1 patch, 1 patch, transdermal, Daily, Vanesa Daniels MD sodium chloride 0.9% infusion, 75 mL/hr, intravenous, Continuous, Diomedes Cortez MD, Last Rate: 75 mL/hr at 01/11/231718, 75 mL/hr at 01/11/231718 tamsulosin (FLOMAX) extended release capsule 0.4 mg, 0.4 mg, oral, Daily with dinner, Donna Escoto MD, 0.4 mg at 01/11/231718 traMADoL (ULTRAM) tablet 25 mg, 25 mg, oral, Q6H PRN, Donna Escoto MD Review of Systems Constitutional: No fever, no weight change Eyes: No vision changes, no retroorbital pain ENT: No hearing changes, no ear pain Respiratory: Positive cough, positive dyspnea Cardiovascular: No chest pain, no palpitations Gastrointestinal: No abdominal pain, no diarrhea Genitourinary: No dysuria, no hematuria Integumentary: No rash, no itching Extremities: No edema Neurologic: No seizures Physical Exam Vitals: 01/12/23 1055 BP: 109/65 Pulse: 70 Resp: 20 Temp: 36.4 ??C (97.5 ??F) SpO2: 98% General Appearance: Alert, cooperative, no distress, appears stated age Head: Normocephalic, without obvious abnormality, atraumatic Eyes: PERRL, conjunctiva normal, Sclera Ears: Normal external ear canals, both ears Nose: Nares normal, septum midline, mucosa normal or sinus tenderness Neck: Supple Back: Symmetric, ROM normal, no CVA tenderness Lungs: CV: Bilateral basilar rales auscultation bilaterally, respirations unlabored irregular rhythm, no murmurs Chest wall: No tenderness or deformity Abdomen: : Soft, non-tender, bowel sounds active , no distension no masses, no organomegaly No lumbar tenderness Extremities: Extremities normal, no cyanosis or edema Skin: Skin color, texture, no rashes Lymph nodes: Cervical, supraclavicular, and axillary nodes normal Neurologic: Moves all extremities, non focal Imaging No results found. Labs Recent Results (from the past 24 hour(s)) CBC with auto differential Collection Time: 01/12/23 4:46 AM Result Value Ref Range WBC 32.7 (H) 3.8 - 9.9 K/cumm Hgb 12.1 (L) 13.0 - 17.5 g/dL Hct 36.7 (L) 38.9 - 50.3 % Plt 330 150 - 400 K/cumm MPV 9.2 9.1 - 12.3 fL RBC 3.73 (L) 4.30 - 5.80 M/cumm MCV 98.4 (H) 81.3 - 96.4 fL MCH 32.4 27.1 - 33.3 pg MCHC 33.0 32.3 - 35.7 g/dL RDW CV 13.4 11.1 - 14.9 % RDW SD 47.7 35.7 - 48.1 fL NRBC abs 0.00 0.00 - 0.01 K/cumm Basic metabolic panel Collection Time: 01/12/23 4:46 AM Result Value Ref Range Sodium 134 (L) 135 - 145 mmol/L Potassium, pl 4.4 3.3 - 4.9 mmol/L Chloride 98 97 - 110 mmol/L CO2 24 22 - 32 mmol/L Anion gap 12 2 - 15 mmol/L BUN 53 (H) 8 - 25 mg/dL Creatinine 1.57 (H) 0.80 - 1.30 mg/dL Glucose 174 70 - 199 mg/dL Calcium 8.4 (L) 8.5 - 10.3 mg/dL Differential, auto Collection Time: 01/12/23 4:46 AM Result Value Ref Range Neutrophil abs 30.8 (H) 1.7 - 6.5 K/cumm Imm gran abs 0.4 (H) 0.0 - 0.1 K/cumm Lymphocyte abs 0.9 0.8 - 3.3 K/cumm Monocyte abs 0.6 0.2 - 0.8 K/cumm Eosinophil abs 0.0 0.0 - 0.5 K/cumm Basophil abs 0.0 0.0 - 0.1 K/cumm Neutrophil pct 94.1 % Imm gran pct 1.3 % Lymphocyte pct 2.8 % Monocyte pct 1.7 % Eosinophil pct 0.0 % Basophil pct 0.1 % eGFR Collection Time: 01/12/23 4:46 AM Result Value Ref Range eGFR 44 mL/min/1.73 m2 Impression/Plan: Principal Problem: COPD exacerbation (CMS/HCC) (HCC) Active Problems: Benign hypertension Basal cell carcinoma of lower leg, right Patient is a 82-year-old male history of COPD, smoking, hypertension, skin cancer, admitted to the hospital with new onset of shortness of breath cough hypoxemia secondary to pneumonia plus-minus COPD exacerbation. Imaging studies with mild multifocal ground-glass opacity suggesting atypical pneumonia, possibly viral. A procalcitonin level has been requested and is pending at this time. Patient have been on therapy with ceftriaxone and azithromycin for the past 3 days with persistent elevation in the white cell count. I do believe leukocytosis is most likely associated with steroid use. Patient overall condition seems improving. I will continue IV antibiotics at this time until obtain further results. I strongly recommended to stop smoking. If procalcitonin level comes back normal then I will discontinue all antibiotics. Continue aggressive supportive therapy. We will follow along. Thanks for this consultation. Abraham Macdonald MD [facility] Office [phone] Record created with voice recognition software. Occasional wrong-word or '[id number]' substitutions may have occurred due to the inherent limitations of voice recognition software. Read the chart carefully and recognize, using context, where substitutions have occurred. [employer] documented in this encounter Nursing Notes * Bia Prieto RN - 01/15/2023 12:03 PM CST Patient discharged to home via private vehicle accompanied by . Discharge instructions reviewedwith patient and/or small business representative. Mobile pharmacy medications and/or prescriptions provided. Belongings/home medications returned. [employer] documented in this encounter ED Notes * Vanesa Daniels MD - 01/10/2023 11:13 AM CST HPI Chief Complaint Patient presents with ??? Shortness of Breath Patient is an 82-year-old male with 2 day history of worsening dyspnea. Patient is a smoker, but stated that he stopped smoking the day before yesterday. Patient has had history of bronchitis. Patient states that he was more short of breath last night, and was unable to lie flat to sleep. He presented to an urgent care today, and was noted to have oxygen saturation in the 80s. EMS was contacted and supplemental oxygen was started. Patient did receive a neb treatment EN route to the ED, and states that his breathing has slightly improved. Patient History: Patient Active Problem List Diagnosis [...] diarrhea ??? COPD (chronic obstructive pulmonary disease) (CMS/HCC) (HCC) ??? HX OTHER MEDICAL dyslipidemia ??? [...] (HCC) ??? Polyp of colon colon polyps ??? PONV (postoperative nausea and vomiting) Past Surgical History: Procedure Laterality Date ??? [...] History Tobacco Use ??? Smoking status: Former Types: Cigarettes Quit date: 2011 Years since quittin.1 ??? Smokeless tobacco: Never Vaping Use ??? Vaping Use: Never used Substance and Sexual Activity ??? Alcohol use: No ??? Drug use: Yes ??? Sexual activity: Defer Partners: Female Social History Social History Narrative ??? Not on file Review of Systems Review of Systems HENT: Negative. Respiratory: Positive for cough, shortness of breath and wheezing. Cardiovascular: Negative for chest pain, palpitations and leg swelling. Gastrointestinal: Negative. Genitourinary: Negative. Musculoskeletal: Patient has 2 month history of right shoulder pain after his shoulder was injured while playing with his grandchild. Patient states he had an MRI of the right shoulder this week, but does not yet have the results. Psychiatric/Behavioral: Negative for confusion. All other systems reviewed and are negative. Physical Exam ED Triage Vitals Temp Pulse Resp BP SpO2 01/10/23 1000 01/10/23 1000 01/10/23 1000 01/10/23 1000 01/10/23 1000 37.1 ??C (98.7 ??F) 118 28 148/65 91 % Temp src Heart Rate Source Patient Position BP Location FiO2 (%) 03/04/23 1000 -- 01/10/23 1007 01/10/23 1007 -- Oral Sitting Left arm Height Height Method Weight Weight Method -- -- 01/10/23 1000 01/10/23 1000 85.7 kg (189 lb) Stated Physical Exam Vitals and nursing note reviewed. Constitutional: Appearance: He is well-developed. HENT: Head: Normocephalic. Nose: Nose normal. Eyes: Conjunctiva/sclera: Conjunctivae normal. Pupils: Pupils are equal, round, and reactive to light. Cardiovascular: Rate and Rhythm: Regular rhythm. Tachycardia present. Heart sounds: Normal heart sounds. Pulmonary: Effort: Tachypnea and respiratory distress present. Breath sounds: Examination of the right-upper field reveals decreased breath sounds. Examination ofthe left-upper field reveals decreased breath sounds. Examination of the right-middle field revealswheezing. Examination of the left- middle field reveals wheezing. Examination of the right-lower field reveals wheezing. Examination of the left-lower field reveals wheezing. Decreased breath sounds and wheezing present. Abdominal: General: Bowel sounds are normal. Palpations: Abdomen is soft. Musculoskeletal: General: Normal range of motion. Cervical back: Normal range of motion and neck supple. Right lower leg: No tenderness. No edema. Left lower leg: No tenderness. No edema. Skin: General: Skin is warm and dry. Neurological: General: No focal deficit present. Mental Status: He is alert and oriented to person, place, and time. Psychiatric: Mood and Affect: Mood normal. Behavior: Behavior normal. MDM Medical Decision Making Amount and/or Complexity of Data Reviewed Labs: ordered. Radiology: ordered. ECG/medicine tests: ordered. Risk Prescription drug management. Final diagnoses: None Vanesa Daniels MD 01/10/232038 [employer] * Chasity Hdz RN - 01/10/2023 9:59 AM CST Bed: ED06 Expected date: Expected time: Means of arrival: Comments: [facility] Chasity Hdz RN 01/10/23 0978 [employer] * Kong Devine RN - 01/10/2023 9:56 AM CST Patient presents from [facility] urgent care after complaints of SOB. EMS has o2 sats of 88% on room air. Placed on 2L Increase in sats to 90s. Nev treatment given enroute. States he has been sick withcough and body aches for two weeks. Negative covid test this morning. Right shoulder pain noted also from encounter with 5 year old grandson. States xrays are negative and MRI was done 01/09/23 [employer] SERVER documented in this encounter Miscellaneous Notes * Provider Query - Donna Escoto MD - 01/15/2023 12:03 PM CST Please specify the stage of Chronic Kidney Disease and document in the medical record and on the form below. ___ Chronic Kidney Disease, Stage 2 (Mild) (GFR 60-89)* ___ Chronic Kidney Disease, Stage 3 (Moderate) (GFR 30-59)* ___Stage 3a (GFR 45-59)* _x__Stage 3b (GFR 30-44)* ___ Other, specify below Additional Provider Response: Clinical Indicators/Treatments: This is an 82-year-old male with PMH of COPD, basal cell carcinoma right cheek s/p wide excision, HTN presented with complaints of 2 day history of worsening dyspnea D/C Summary 01/15/23 by Donna Escoto MD Nonoliguric ELI vs worsening CKD Pt with elevated BUN and Cr of 34/1.42. Previous baseline of 1.19 from one year prior. Bladder scannegative for urinary retention. Creatinine remain stable 1.3 today, likely progression of CKD vs mild ELI. S/p IV fluids. Nephrology following, appreciate recs. Consult 01/13/23 by Glenn Cabrera MD Hard to say with certainty that we have ELI, due to the lab gap, and his prior CKD. To the extent that we do, it's likely a complication of his pneumonia, mild and stable. Labs Date Creatinine Bun eGFR 01/11 1.42 34 50 3/6 1.57 53 44 3/7 1.51 40 46 3/8 1.34 34 53 3/9 1.60 39 43 *CKD stage Definition (National Kidney [employer]) Use of terms such as likely, suspected, possible, or probable (associated with a specific diagnosisthat is being evaluated, monitored, or treated as if it exists) are acceptable and can be coded in the inpatient setting when documented at the time of discharge. This documentation will become part of the patient???s medical record. Sincerely, [facility] Information Management * Plan of Care - Bia Prieto RN - 01/15/2023 10:49 AM CST Goals: Clinical Goals for the Shift: VSS. Remain free of falls/injuries. Possible discharge. Summary: V/S stable this shift. Pt has remained free of falls/injuries. Pt has been seen by MD and plans to discharge today. aware of plans. Lungs sound improved from yesterday. [employer] * Plan of Care - Sophia Evangelista RN - 01/15/2023 5:01 AM CST Problem: Health Behavior: Goal: Understanding of discharge needs will improve Outcome: Progressing Problem: Lack of Knowledge: Goal: Knowledge of disease or condition will improve Outcome: Progressing Goal: Knowledge of safety precautions will improve Outcome: Progressing Goal: Knowledge of the prescribed therapeutic regimen will improve Outcome: Progressing Problem: Infection Risk: Goal: Will remain free from infection Outcome: Progressing Problem: Safety: Goal: Ability to remain free from injury will improve Outcome: Progressing Goal: Will remain free from falls Outcome: Progressing Goals: Clinical Goals for the Shift: Pt to have stable cardiac function this shift Summary: Pt had stable cardiac function this shift. Pt slept most of night. Call light within reach. Pt to call with needs. [employer] SERVER * Plan of Care - Bia Prieto RN - 01/14/2023 4:38 PM CST Goals: Clinical Goals for the Shift: VSS. Remain free of falls/injuries. Improve respiratory status. Cardio consult. Summary: V/S stable this shift. Pt has remained free of falls/injuries. Pt has improved respiratorystatus this shift with no wheezes noted. Pt converted back into NSR this am. Cardio consult has been completed. Echo completed. Denies needs at this time. [employer] SERVER * Plan of Care - Sophia Evangelista RN - 01/14/2023 7:47 AM CST Problem: Health Behavior: Goal: Understanding of discharge needs will improve Outcome: Progressing Problem: Lack of Knowledge: Goal: Knowledge of disease or condition will improve Outcome: Progressing Goal: Knowledge of safety precautions will improve Outcome: Progressing Goal: Knowledge of the prescribed therapeutic regimen will improve Outcome: Progressing Problem: Infection Risk: Goal: Will remain free from infection Outcome: Progressing Problem: Safety: Goal: Ability to remain free from injury will improve Outcome: Progressing Goal: Will remain free from falls Outcome: Progressing Goals: Clinical Goals for the Shift: Pt to have stable respiratory status this shift. Summary: Pt has had stable respiratory status this shift. However, pt's cardiac status changed and pt's telemetry showed AFIB. MD notified and interventions ordered. Pt did not sleep well due to frequent monitoring of telemetry and vital signs. [employer] SERVER * Plan of Care - Bia Prieto RN - 01/13/2023 5:24 PM CST Goals: Clinical Goals for the Shift: VSS. Remain free of falls/injuries. Improve respiratory status. Summary: V/S stable this shift. Pt has remained free of falls/injuries. Pt's respiratory status hasimproved this shift. Deep breathing and cough encouraged. Denies pain. Educated pt on importance ofmeasuring output by saving urine in urinal for staff. at bedside this shift. Antibiotics switched to PO this shift. IVF continue per order. [employer] SERVER * Plan of Care - Henry Hutson RN - 01/13/2023 6:27 AM CST Problem: Health Behavior: Goal: Understanding of discharge needs will improve Outcome: Progressing Problem: Lack of Knowledge: Goal: Knowledge of disease or condition will improve Outcome: Progressing Goal: Knowledge of safety precautions will improve Outcome: Progressing Goal: Knowledge of the prescribed therapeutic regimen will improve Outcome: Progressing Problem: Safety: Goal: Ability to remain free from injury will improve Outcome: Progressing Goal: Will remain free from falls Outcome: Progressing Goals: Clinical Goals for the Shift: Remain safe and free from falls. VSS. Labs improve. Respiratory status improves. Summary: Pt rested well during shift. Tolerating po intake. Voiding per urinal without difficulty. Pt remains safe and free from falls. VSS. Pt remains afebrile during shift. Pt had difficulty breathing in bed and moved to easy chair. Pt breathing was greatly unlabored when setting up in chair. Added 1 LO2 per nasal canula when O2 sats dropped to 89%. Pt remained in the mid to high 90's for the rest of the shift. Give antibiotics as ordered. Continue to monitor labs, vials, and pt for any changes in condition. [employer] SERVER * Plan of Care - Bia Prieto RN - 01/12/2023 5:19 PM CST Goals: Clinical Goals for the Shift: VSS. Remain free of falls/injuries. Improve respiratory status. Summary: V/S stable this shift. Pt has remained free of falls/injuries. Pt has had stable respiratory status. Denies pain. Family at bedside this shift. Independent in room. Denies needs at this time. IVF continues per order. [employer] SERVER * Plan of Care - Vidhya Cotter RN - 01/12/2023 1:36 PM CST CM Initial Assessment Interview Note Information Obtained From: Patient (01/12/231328) Admission Source: home Impression: copd exacerbation Plan Includes: evaluation Primary Source of Transportation: Does the patient need discharge transport arranged?: No (01/12/231328) Health Insurance Coverage: [employer] Medicare Prescription Coverage: yes Pharmacy: [id number] - [place], [place] - [address] [facility] [place] [address] [facility] [id number] Primary Care Provider: Cassius London MD Prior to Admission: Primary Caregiver: Self Who does the patient or legal guardian want to receive education instruction and discharge plans for after care assistance?: Decline Support System: Spouse/Significant Other, Children, Family members Home Care Services: No Durable Medical Equipment: None Living Arrangements: Spouse/significant other Type of Residence: Private residence Steps in home? : Yes, Outside of home, Yes, Inside home (01/10/231599) SDOH: Transportation: In the past 12 months, has lack of transportation kept you from medical appointments or from getting medications?: No In the past 12 months, has lack of transportation kept you from meetings, work, or from getting things needed for daily living?: No (01/12/231328) Financial Resource: How hard is it for you to pay for the very basics like food, housing, medical care, and heating?: Not very hard (01/12/231328) Housing: In the last 12 months, was there a time when you were not able to pay the mortgage or rent on time?: No In the last 12 months, how many places have you lived?: 1 In the last 12 months, was there a time when you did not have a steady place to sleep or slept in ashelter (including now)?: No (01/12/231328) Social Connections: In a typical week, how many times do you talk on the phone with family, friends, or neighbors?: More than three times a week How often do you get together with friends or relatives?: Three times a week How often do you attend advent or oriental orthodox services?: Never Do you belong to any clubs or organizations such as advent groups, unions, fraternal or athletic groups, or school groups?: No How often do you attend meetings of the clubs or organizations you belong to?: Never Are you , , , , never , or living with a partner?: (01/12/231328) Food Insecurity: Within the past 12 months, you worried that your food would run out before you got the money to buymore.: Never true Within the past 12 months, the food you bought just didn't last and you didn't have money to get more.: Never true (01/12/231328) Patient expects to be Discharged to: Private residence, (01/12/231328) Additional Information: Patient lives at home with his . He is independent with mobility and adls. No devices used for mobility. He is able to drive. They have 2 sons and grandchildren for support. Discharge plan will be to return to home and his will provide transportation. Will continue to follow. Patient's Identified Problem/Goal Problem: Ensure acute medical needs are met and that patient has a safe discharge plan. Goal: Secure a discharge plan that patient/family are agreeable with and ensure patient has continuum of care. Case management will follow for discharge planning and send referrals as needed. Vidhya Cotter RN [employer]UR[employer] LINE SERVER * Plan of Care - Bia Bryan RRT - 01/12/2023 1:02 PM CST Pt found on RA with coarse breath sounds. Pt did inhaler well, rinsed mouth post Symbicort. Plan: continue current therapies, monitor pt as needed. [employer] LINE SERVER * Plan of Care - Lyndsay Richardson RN - 01/12/2023 3:38 AM CST Problem: Health Behavior: Goal: Understanding of discharge needs will improve Outcome: Progressing Problem: Lack of Knowledge: Goal: Knowledge of disease or condition will improve Outcome: Progressing Goal: Knowledge of safety precautions will improve Outcome: Progressing Goal: Knowledge of the prescribed therapeutic regimen will improve Outcome: Progressing Problem: Infection Risk: Goal: Will remain free from infection Outcome: Progressing Problem: Safety: Goal: Ability to remain free from injury will improve Outcome: Progressing Goal: Will remain free from falls Outcome: Progressing Goals: Clinical Goals for the Shift: Pt to have no respiratory distress. Wean o2 as tolerated, monitor respiratory status and report any decline. No falls. Blood sugar to remain WNL. VSS. Summary: Pt short of breath with exertion. Lungs remain coarse throughout. Remains on room air witho2 sats in the low 90's. All meds given as ordered. Blood sugars WNL. VSS. [employer] LINE SERVER * Plan of Care - Araceli Talamantes RN - 01/11/2023 6:48 PM CST Problem: Health Behavior: Goal: Understanding of discharge needs will improve Outcome: Progressing Problem: Lack of Knowledge: Goal: Knowledge of disease or condition will improve Outcome: Progressing Goal: Knowledge of safety precautions will improve Outcome: Progressing Goal: Knowledge of the prescribed therapeutic regimen will improve Outcome: Progressing Problem: Safety: Goal: Ability to remain free from injury will improve Outcome: Progressing Goal: Will remain free from falls Outcome: Progressing Goals: Clinical Goals for the Shift: No respiratory distress. VItals and labs stable. No falls or injuries. Summary: Pt currently on RA with o2 sats in the mid 90's. Vitals stable. No complaints of pain voiced. IV NS infusing as ordered. Pt up in room without difficulty. Appetite good. Continue plan of care. [employer] LINE SERVER * Plan of Care - Lyndsay Richardson RN - 01/11/2023 4:47 AM CST Problem: Health Behavior: Goal: Understanding of discharge needs will improve Outcome: Progressing Problem: Lack of Knowledge: Goal: Knowledge of disease or condition will improve Outcome: Progressing Goal: Knowledge of safety precautions will improve Outcome: Progressing Goal: Knowledge of the prescribed therapeutic regimen will improve Outcome: Progressing Problem: Infection Risk: Goal: Will remain free from infection Outcome: Progressing Problem: Safety: Goal: Ability to remain free from injury will improve Outcome: Progressing Goal: Will remain free from falls Outcome: Progressing Goals: Clinical Goals for the Shift: Pt to have no respiratory distress. Wean o2 as tolerated, monitor respiratory status and report any decline. No falls. Blood sugar to remain WNL. VSS. Summary: Pt O2 weaned to 3L/nc, SPO2 remains at 92%. No respiratory distress noted or reported. Up ad tong, no falls. Blood sugar WNL. VSS. [employer] SERVER * Plan of Care - Teresita Leonard RN - 01/10/2023 5:00 PM CST Problem: Health Behavior: Goal: Understanding of discharge needs will improve Outcome: Progressing Problem: Lack of Knowledge: Goal: Knowledge of disease or condition will improve Outcome: Progressing Goal: Knowledge of safety precautions will improve Outcome: Progressing Goal: Knowledge of the prescribed therapeutic regimen will improve Outcome: Progressing Problem: Infection Risk: Goal: Will remain free from infection Outcome: Progressing Problem: Safety: Goal: Ability to remain free from injury will improve Outcome: Progressing Goal: Will remain free from falls Outcome: Progressing [employer] SERVER documented in this encounter Plan of Treatment Not on file documented as of this encounter Procedures Procedure Name Priority Date/Time Associated Diagnosis Comments EGFR Routine 01/15/2023 8:20 AM REST[employer] LINE SERVER DIFFERENTIAL AUTO Routine 01/15/2023 8:2 0 AM [employer] LINE SERVER PRO B-TYPE NATRIURETIC PEPTIDE Routine 01/15/2023 8:20 AM REST[employer]ANT LINE SERVER CBC WITH AUTO DIFFERENTIAL Routine 01/15/2023 8:20 AM RESTAURANT LINE SERVER RENAL FUNCTION PANEL Routine 01/15/2023 8:20 AM REST[employer]URANT LINE SERVER TRANSTHORACIC ECHO (TTE) COMPLETE W DOPPLER/CF WO CONTRAST Routine 01/14/2023 3:35 PM [employer] LINE SERVER EGFR Routine 01/14/2023 7:44 AM REST[employer]ANT LINE SERVER DIFFERENTIAL AUTO Routine 01/14/2023 7:4 4 AM [employer] LINE SERVER PRO B-TYPE NATRIURETIC PEPTIDE Routine 01/14/2023 7:44 AM RESTAURANT LINE SERVER CBC WITH AUTO DIFFERENTIAL Routine 01/14/2023 7:44 AM REST[employer] LINE SERVER MAGNESIUM Routine 01/14/2023 7:44 AM REST[employer] LINE SERVER RENAL FUNCTION PANEL Routine 01/14/2023 7:44 AM RESTAURANT LINE SERVER APTT STAT 01/13/2023 11:15 PM REST[employer] LINE SERVER PROTIME-INR STAT 01/13/2023 11:15 PM REST[employer] LINE SERVER ECG 12-LEAD STAT 01/13/2023 9:56 PM REST[employer] LINE SERVER LEGIONELLA ANTIGEN, URINE Routine 01/13/2023 4:14 PM REST[employer] LINE SERVER SODIUM, URINE, RANDOM Routine 01/13/2023 4:14 PM [employer] LINE SERVER EGFR Routine 01/13/2023 4:44 AM RESTAURANT LINE SERVER DIFFERENTIAL AUTO Routine 01/13/2023 4:4 4 AM RESTAURANT LINE SERVER CBC WITH AUTO DIFFERENTIAL Routine 01/13/2023 4:44 AM REST[employer] LINE SERVER BASIC METABOLIC PANEL Routine 01/13/2023 4:44 AM REST[employer] LINE SERVER EGFR Routine 01/12/2023 4:46 AM REST[employer]ANT LINE SERVER DIFFERENTIAL AUTO Routine 01/12/2023 4:4 6 AM RESTAURANT LINE SERVER CBC WITH AUTO DIFFERENTIAL Routine 01/12/2023 4:46 AM REST[employer] LINE SERVER BASIC METABOLIC PANEL Routine 01/12/2023 4:[address] CHEST WO CONTRAST IP Routine 01/11/2023 9:57 AM REST[employer]ANT LINE SERVER EGFR Routine 01/11/2023 7:06 AM REST[employer]ANT LINE SERVER DIFFERENTIAL AUTO Routine 01/11/2023 7:0 6 AM REST[employer]ANT LINE SERVER PROCALCITONIN Routine 01/11/2023 7:06 AM RESTA[employer] LINE SERVER MYCOPLASMA PNEUMONIAE ANTIBODY, IGG AND IGM Routine 01/11/2023 7:06 AM RESTAURANT LINE SERVER CBC WITH AUTO DIFFERENTIAL Routine 01/11/2023 7:06 AM REST[employer]ANT LINE SERVER BASIC METABOLIC PANEL Routine 01/11/2023 7:06 AM RESTAURANT LINE SERVER TROPONIN T HIGH-SENSITIVITY 6-HOUR Timed 01/10/2023 5:04 PM [employer] LINE SERVER TROPONIN T HIGH-SENSITIVITY 4-HR Timed 01/10/2023 2:52 PM REST[employer] LINE SERVER URINALYSIS AND REFLEX TO MICROSCOPIC AND CULTURE STAT 01/10/2023 1:16 PM REST[employer] LINE SERVER URINALYSIS, MICROSCOPIC ONLY STAT 01/10/2023 1:16 PM [employer] LINE SERVER TROPONIN T HIGH-SENSITIVITY 2-HOUR Timed 01/10/2023 12:44 PM REST[employer] LINE SERVER BLOOD GAS, VENOUS Add-On 01/10/2023 12: 42 PM [employer] LINE SERVER INFLUENZA A/B, RSV, AND COVID-19 PCR Routine 01/10/2023 12:29 PM REST[employer]ANT LINE SERVER BLOOD CULTURE STAT 01/10/2023 11:41 AM RESTAURANT LINE SERVER BLOOD CULTURE STAT 01/10/2023 11:30 AM RESTAURANT LINE SERVER TROPONIN T HIGH-SENSITIVITY SERIES (BASELINE, 2HR, 4HR, 6HR) STAT 01/10/2023 10:36 AM RESTAURANT LINE SERVER SEPSIS LACTATE WITH REFLEX STAT 01/10/2023 10:36 AM RESTAURANT LINE SERVER DIFFERENTIAL AUTO STAT 01/10/2023 10: 36 AM REST[employer]URANT LINE SERVER PRO B-TYPE NATRIURETIC PEPTIDE STAT 01/10/2023 10:36 AM RESTAURANT LINE SERVER CBC WITH AUTO DIFFERENTIAL STAT 01/10/2023 10:36 AM RESTAURANT LINE SERVER XR CHEST 1 VIEW ED 01/10/2023 10:33 AM REST[employer]ANT LINE SERVER ECG 12-LEAD STAT 01/10/2023 9:55 AM REST[employer]ANT LINE SERVER documented in this encounter Results * (ABNORMAL) Basic metabolic panel (01/22/2023 10:59 [...] ([place]) Glucose 92 70 - 199 mg/dL [facility] ([place]) [...] 2022. Calcium 9.0 8.5 - 10.3 mg/dL [facility] ([place]) Blood 01/22/2023 10:5 9 AM CDT 01/22/2023 12:33 PM CDT us Donna Escoto MD LAB BLOOD ORDERABLES Final Res ult [facility] ([place]) 1 [facility] [place] [address] * (ABNORMAL) CBC without differential (01/22/2023 10:59 [...] CDT 01/22/2023 12:33 PM CDT us Donna Escoto MD LAB BLOOD ORDERABLES Final Res ult [facility] ([place]) [address] Department [place] [address] * eGFR (01/15/2023 8:20 AM RESTAURANT LINE SERVER) Pathologist [facility] eGFR 43 mL/min/1. 73 m2 [facility] ([place]) Comment: Interpretive Data Reference Interval Normal ?>/= [...] interpretive data was last reviewed 2021. Blood 01/15/2023 8:20 AM RESTAURANT LINE SERVER 01/15/2023 8:35 AM RESTAURANT LINE SERVER us Glenn Cabrera MD LAB BLOOD ORDERABLES Final Re sult [facility] ([place]) 1 [facility] Department [place] [address] * (ABNORMAL) Differential, auto (01/15/2023 8:20 AM RESTAURANT LINE SERVER) Pathologist [facility] Neutrophil abs 12.3(H) 1.7 - 6.5 K/cumm [facility] ([place]) Imm gran abs 0.1 0.0 - 0.1 K/cumm [facility] ([place]) Lymphocyte abs 3.8(H) 0.8 - 3.3 K/cumm [facility] ([place]) Monocyte abs 1.0(H) 0.2 - 0.8 K/cumm [facility] ([place]) Eosinophil abs 0.1 0.0 - 0.5 K/cumm [facility] ([place]) Basophil abs 0.0 0.0 - 0.1 K/cumm [facility] ([place]) Neutrophil pct 71.0 % [facility] ([place]) Comment: Interpretive Data Percent cell count reference ranges are not reported, since discordance with absolute values may lead to misinterpretation of CBC data. Current Interpretive Data was last revised on 2018. Imm gran pct 0.8 % [facility] ([place]) Comment: Interpretive Data Percent cell count reference ranges are not reported, since discordance with absolute values may lead to misinterpretation of CBC data. Current Interpretive Data was last revised on 2018. Lymphocyte pct 21.9 % [facility] ([place]) Comment: Interpretive Data Percent cell count reference ranges are not reported, since discordance with absolute values may lead to misinterpretation of CBC data. Current Interpretive Data was last revised on 2018. Monocyte pct 5.6 % [facility] ([place]) Comment: Interpretive Data Percent cell count reference ranges are not reported, since discordance with absolute values may lead to misinterpretation of CBC data. Current Interpretive Data was last revised on 2018. Eosinophil pct 0.6 % [facility] ([place]) Comment: Interpretive Data Percent cell count reference ranges are not reported, since discordance with absolute values may lead to misinterpretation of CBC data. Current Interpretive Data was last revised on 2018. Basophil pct 0.1 % [facility] ([place]) Comment: Interpretive Data Percent cell count reference ranges are not reported, since discordance with absolute values may lead to misinterpretation of CBC data. Current Interpretive Data was last revised on 2018. Blood 01/15/2023 8:20 AM RESTAURANT LINE SERVER 01/15/2023 8:35 AM RESTAURANT LINE SERVER us Donna Escoto MD LAB BLOOD ORDERABLES Final Res ult [facility] ([place]) 1 [facility] Department [place] [address] * (ABNORMAL) Pro B-type natriuretic peptide (01/15/2023 8:20 AM RESTAURANT LINE SERVER) NT-proBNP 2,270(H) <=450 pg/mL [facility] ([place]) Comment: Interpretive Comments: A. Dyspnea in Acute [...] Interpretive Data Last Revised Date: 2018. Blood 01/15/2023 8:20 AM RESTAURANT LINE SERVER 01/15/2023 8:35 AM RESTAURANT LINE SERVER us Glenn Cabrera MD LAB BLOOD ORDERABLES Final Re sult [facility] ([place]) 1 [facility] Department [place] [address] * (ABNORMAL) Renal function panel (01/15/2023 8:20 AM RESTAURANT LINE SERVER) Sodium 139 135 - 145 mmol/L [facility] ([place]) Potassium, pl 4.9 3.3 - 4.9 mmol/L [facility] ([place]) Chloride 100 97 - 110 mmol/L [facility] ([place]) CO2 32 22 - 32 mmol/L [facility] ([place]) Anion gap 7 2 - 15 mmol/L [facility] ([place]) BUN 39(H) 8 - 25 mg/dL [facility] ([place]) Creatinine 1.60(H) 0.80 - 1.30 mg/dL [facility] ([place]) Glucose 89 70 - 199 mg/dL [facility] ([place]) [...] interpretive data was last revised 2022. Calcium 9.4 8.5 - 10.3 mg/dL [facility] ([place]) Phosphorus, pl 3.4 2.3 - 4.5 mg/dL [facility] ([place]) Albumin 3.4(L) 3.5 - 5.0 g/dL [facility] ([place]) Blood 01/15/2023 8:20 AM RESTAURANT LINE SERVER 01/15/2023 8:35 AM RESTAURANT LINE SERVER us Glenn Cabrera MD LAB BLOOD ORDERABLES Final Re sult [facility] ([place]) 1 [facility] Department [place] [address] * (ABNORMAL) CBC with auto differential (01/15/2023 8:20 AM RESTAURANT LINE SERVER) WBC 17.3(H) 3.8 - 9.9 K/cumm [facility] ([place]) Hgb 13.0 13.0 - 17.5 g/dL [facility] ([place]) Hct 39.4 38.9 - 50.3 % [facility] ([place]) Plt 366 150 - 400 K/cumm [facility] ([place]) MPV 9.0(L) 9.1 - 12.3 fL [facility] ([place]) RBC 3.97(L) 4.30 - 5.80 M/cumm [facility] ([place]) MCV 99.2(H) 81.3 - 96.4 fL [facility] ([place]) MCH 32.7 27.1 - 33.3 pg [facility] ([place]) MCHC 33.0 32.3 - 35.7 g/dL [facility] ([place]) RDW CV 13.2 11.1 - 14.9 % [facility] ([place]) RDW SD 48.2(H) 35.7 - 48.1 fL [facility] ([place]) NRBC abs 0.00 0.00 - 0.01 K/cumm [facility] ([place]) Blood 01/15/2023 8:20 AM RESTAURANT LINE SERVER 01/15/2023 8:35 AM RESTAURANT LINE SERVER us Donna Escoto MD LAB BLOOD ORDERABLES Final Res ult [facility] ([place]) 1 [facility] Department of Laboratories [place], [place] [id number] * TRANSTHORACIC ECHO (TTE) COMPLETE W DOPPLER/CF WO CONTRAST (01/14/2023 3:35 PM RESTAURANT LINE SERVER) Anatomical Region Laterality Modality Ultrasound 01/14/2023 2:45 PM RESTAURANT LINE SERVER Narrative 01/14/2023 4:19 PM REST[employer]ANT LINE SERVER [address] [place] [address] Echocardiogram Report Patient Name: XAVIER JUAN L : 1940 Study Date: 01/14/2023 2:45:49 PM Gender: M 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 Indications: Atrial Fibrillation. Measurements: 2D/M Mode ?Doppler ? Measurement ?Value ?Normal Range ? Measurement ?Value ?Normal Range ? EF Teich MM ?63.0 ? [ 55.0 - 70.0 ] percent ?JURGEN Vmax ? 2.42 ? [ 2.00 - 4.00 ] cm2 ? LVIDd MM ? 6.20 ? [ 4.20 - 5.90 ] cm ? AV Mean PG ? 9 ?[ 2 - 4 ] mmHg ? LVIDs MM ? 4.10 ? [ 2.30 - 3.90 ] cm ? AV Peak Emmanuel ?1.50 ? [ 1.00 - 1.70 ] m/s ? LVPWd MM ? 1.10 ? [ 0.60 - 1.00 ] cm ? AV VTI ? 36.07 ?cm ? IVSd MM ?0.80 ? [ 0.60 - 0.90 ] cm ? LVOT Diam ?2.31 ? [ 1.70 - 2.10 ] cm ? LA Dimension MM ?4.28 ? [ 3.00 - 4.00 ] cm ? LVOT Peak Emmanuel ?0.87 ? [ 0.70 - 1.10 ] m/s ? AoR Diam MM ?3.34 ? [ 2.60 - 3.70 ] cm ? LVOT VTI ? 18.38 ?[ 20.00 - 30.00 ] cm ? ACS MM ? 1.75 ? [ 1.50 - 2.60 ] cm ? MV E Peak Emmanuel ?1.63 ? [ 0.60 - 1.30 ] m/s ? MV A Peak Emmanuel ?1.20 ? [ 1.00 - 1.20 ] m/s ? MV Mean PG ? 3 ?[ <= 5 ] mmHg ? MV PHT ? 61 ? [ 20 - 100 ] msec ? MVA ?3.60 ? MV Decel Time ?211 ?[ 104 - 258 ] msec ? PV Peak Emmanuel ?0.90 ? [ 0.40 - 0.80 ] m/s ? TR Peak Emmanuel ?2.19 ? [ 1.00 - 2.80 ] m/s ? TR Peak PG ? 19 ? mmHg ? RVSP ? 24.00 ?[ 10.00 - 36.00 ] mmHg ? E` ? 0.06 ? cm/sec ? E/E` ? 26.30 ?[ <= 10.00 ] ? PA Pressure ?10.00 ?[ 10.00 - 36.00 ] mmHg ? - Findings: Atrial Septum: The atrial septum is not well visualized. Left Ventricle: Normal left ventricular systolic function with no focal wall motion abnormalities. Normal left ventricular size. Normal left ventricular wall thickness. Mild enlargement of left ventricle cavity. Diastolic dysfunction is present. Ejection fraction is measured at 63 %. Left Atrium: There is mild enlargement of left atrium. Right Ventricle: Normal right ventricular size. Normal right ventricular systolic function. Right Atrium: The right atrium is normal in size. Aortic Valve: Normal structure of the aortic valve. Mitral Valve: Normal structure of the mitral valve. Pulmonic Valve: Pulmonic valve not well visualized. Tricuspid Valve: Right Ventricular Systolic Pressure could not be estimated due to inadequate visualization of TR jet. Pericardium: Normal pericardium with no significant pericardial effusion. Aorta: Aortic root not well visualized. IVC: Normal size and normal respiratory collapse consistent with normal right atrial pressure (<5 mmHg). Conclusions: Normal left ventricular systolic function with no focal wall motion abnormalities. Normal left ventricular size. Normal left ventricular wall thickness. Mild enlargement of left ventricle cavity. Diastolic dysfunction is present. Ejection fraction is measured at 63 %. There is mild enlargement of left atrium. Electronically Signed By: Raffy Oneil 2023-01-14 16:19:14 RESTAURANT LINE SERVER CC: CC: Procedure Note Raffy Oneil MD - 01/14/[address] [address] Echocardiogram Report Patient Name: XAVIER JUAN LPatient ID: [id number] : [id number] Date: 01/14/2023 2:45:49 PM Gender: MAccession #: [id number] Tech: NPLocation: [id number] Ref.Provider: JOSHUA ESCOTOdeandrat(Cm): 173 BSA: 2.03Weight(Kg): 85.7 Quality: AdequateOrder Provider: DONNA ESCOTO Procedures: Echocardiographic Report: Transthoracic echocardiogram with complete 2D, M-Mode, and color Dopplerexamination. Indications: Atrial Fibrillation. Measurements: 2D/M Mode Doppler Measurement Value Normal Range MeasurementValue Normal Range EF Teich MM 63.0 [ 55.0 - 70.0 ] percent JURGEN Vmax2.42 [ 2.00 - 4.00 ] cm2 LVIDd MM 6.20 [ 4.20 - 5.90 ] cm AV Mean PG 9[ 2 - 4 ] mmHg LVIDs MM 4.10 [ 2.30 - 3.90 ] cm AV Peak Vel1.50 [ 1.00 - 1.70 ] m/s LVPWd MM 1.10 [ 0.60 - 1.00 ] cm AV VTI36.07 cm IVSd MM 0.80 [ 0.60 - 0.90 ] cm LVOT Diam2.31 [ 1.70 - 2.10 ] cm LA Dimension MM 4.28 [ 3.00 - 4.00 ] cm LVOT Peak Vel0.87 [ 0.70 - 1.10 ] m/s AoR Diam MM 3.34 [ 2.60 - 3.70 ] cm LVOT VTI18.38 [ 20.00 - 30.00 ] cm ACS MM 1.75 [ 1.50 - 2.60 ] cm MV E Peak Vel1.63 [ 0.60 - 1.30 ] m/s MV A Peak Vel1.20 [ 1.00 - 1.20 ] m/s MV Mean PG 3[ <= 5 ] mmHg MV PHT 61[ 20 - 100 ] msec MVA3.60 MV Decel [id number] [ 104 - 258 ] msec PV Peak Vel0.90 [ 0.40 - 0.80 ] m/s TR Peak Vel2.19 [ 1.00 - 2.80 ] m/s TR Peak PG 19mmHg RVSP24.00 [ 10.00 - 36.00 ] mmHg E`0.06 cm/sec E/E`26.30 [ <= 10.00 ] PA Mlowlyzg56.00 [ 10.00 - 36.00 ] mmHg - Findings: Atrial Septum: The atrial septum is not well visualized. Left Ventricle: Normal left ventricular systolic function with no focal wall motionabnormalities. Normal left ventricular size. Normal left ventricular wall thickness. Mildenlargement of left ventricle cavity. Diastolic dysfunction is present. Ejection fraction ismeasured at 63 %. Left Atrium: There is mild enlargement of left atrium. Right Ventricle: Normal right ventricular size. Normal right ventricular systolicfunction. Right Atrium: The right atrium is normal in size. Aortic Valve: Normal structure of the aortic valve. Mitral Valve: Normal structure of the mitral valve. Pulmonic Valve: Pulmonic valve not well visualized. Tricuspid Valve: Right Ventricular Systolic Pressure could not be estimated due toinadequate visualization of TR jet. Pericardium: Normal pericardium with no significant pericardial effusion. Aorta: Aortic root not well visualized. IVC: Normal size and normal respiratory collapse consistent with normal rightatrial pressure (<5 mmHg). Conclusions: Normal left ventricular systolic function with no focal wall motionabnormalities. Normal left ventricular size. Normal left ventricular wall thickness. Mildenlargement of left ventricle cavity. Diastolic dysfunction is present. Ejection fraction ismeasured at 63 %. There is mild enlargement of left atrium. Electronically Signed By: Raffy Oneil 2023-01-14 16:19:14 RESTAURANT LINE SERVER CC: CC: us Donna Escoto MD CV ECHO PROCEDURES Final Resul t * eGFR (01/14/2023 7:44 AM RESTAURANT LINE SERVER) [facility] eGFR 53 mL/min/1. 73 m2 [facility] ([place]) Comment: [...] interpretive data was last reviewed 2021. Blood 01/14/2023 7:44 AM RESTAURANT LINE SERVER 01/14/2023 8:07 AM RESTAURANT LINE SERVER us Glenn Cabrera MD LAB BLOOD ORDERABLES Final Re sult [facility] ([place]) 1 [facility] Department [place] [address] * (ABNORMAL) Differential, auto (01/14/2023 7:44 AM RESTAURANT LINE SERVER) Neutrophil abs 12.0(H) 1.7 - 6.5 K/cumm [facility] ([place]) Imm gran abs 0.1 0.0 - 0.1 K/cumm [facility] ([place]) Lymphocyte abs 3.2 0.8 - 3.3 K/cumm [facility] ([place]) Monocyte abs 1.0(H) 0.2 - 0.8 K/cumm [facility] ([place]) Eosinophil abs 0.0 0.0 - 0.5 K/cumm [facility] ([place]) Basophil abs 0.0 0.0 - 0.1 K/cumm [facility] ([place]) Neutrophil pct 73.7 % [facility] ([place]) Comment: Interpretive Data Percent cell count reference ranges are not reported, since discordance with absolute values may lead to misinterpretation of CBC data. Current Interpretive Data was last revised on 2018. Imm gran pct 0.5 % [facility] ([place]) Comment: Interpretive Data Percent cell count reference ranges are not reported, since discordance with absolute values may lead to misinterpretation of CBC data. Current Interpretive Data was last revised on 2018. Lymphocyte pct 19.4 % [facility] ([place]) Comment: Interpretive Data Percent cell count reference ranges are not reported, since discordance with absolute values may lead to misinterpretation of CBC data. Current Interpretive Data was last revised on 2018. Monocyte pct 6.2 % [facility] ([place]) Comment: Interpretive Data Percent cell count reference ranges are not reported, since discordance with absolute values may lead to misinterpretation of CBC data. Current Interpretive Data was last revised on 2018. Eosinophil pct 0.1 % [facility] ([place]) Comment: Interpretive Data Percent cell count reference ranges are not reported, since discordance with absolute values may lead to misinterpretation of CBC data. Current Interpretive Data was last revised on 2018. Basophil pct 0.1 % [facility] ([place]) Comment: Interpretive Data Percent cell count reference ranges are not reported, since discordance with absolute values may lead to misinterpretation of CBC data. Current Interpretive Data was last revised on 2018. Blood 01/14/2023 7:44 AM RESTAURANT LINE SERVER 01/14/2023 8:07 AM RESTAURANT LINE SERVER us Donna Escoto MD LAB BLOOD ORDERABLES Final Res ult [facility] ([place]) 1 [facility] [place] [address] * Magnesium (01/14/2023 7:44 AM RESTAURANT LINE SERVER) Magnesium 1.8 1.4 - 2.5 mg/dL [facility] ([place]) Blood 01/14/2023 7:44 AM RESTAURANT LINE SERVER 01/14/2023 8:07 AM RESTAURANT LINE SERVER Jina Be MD LAB BLOOD ORDERABLES Fin al Result [facility] ([place]) 1 [facility] Department [place] [address] * (ABNORMAL) Pro B-type natriuretic peptide (01/14/2023 7:44 AM RESTAURANT LINE SERVER) NT-proBNP 3,863(H) <=450 pg/mL [facility] ([place]) Comment: Interpretive Comments: A. Dyspnea in Acute [...] Heart J. 2006:27:330-337. 2. Ashlee RW, Sophia AM. J. AM Luis Alberto Cardiol: Cardiovasc Imag. 2009;2: 216- 225. Interpretive Data Last Revised Date: 2018. Blood 01/14/2023 7:44 AM [employer]UR[employer] SERVER 01/14/2023 8:07 AM RESTAURANT LINE SERVER us Glenn Cabrera MD LAB BLOOD ORDERABLES Final Re sult [facility] ([place]) 1 [facility] Department [place] [address] * (ABNORMAL) Renal function panel (01/14/2023 7:44 AM RESTAURANT LINE SERVER) Sodium 138 135 - 145 mmol/L [facility] ([place]) Potassium, pl 4.7 3.3 - 4.9 mmol/L [facility] ([place]) Chloride 103 97 - 110 mmol/L [facility] ([place]) CO2 27 22 - 32 mmol/L [facility] ([place]) Anion gap 8 2 - 15 mmol/L [facility] ([place]) BUN 34(H) 8 - 25 mg/dL [facility] ([place]) Creatinine 1.34(H) 0.80 - 1.30 mg/dL [facility] ([place]) Glucose 81 70 - 199 mg/dL [facility] ([place]) [...] 8.5 - 10.3 mg/dL [facility] ([place]) Phosphorus, pl 2.7 2.3 - 4.5 mg/dL [facility] ([place]) Albumin 3.0(L) 3.5 - 5.0 g/dL [facility] ([place]) Blood 01/14/2023 7:44 AM [employer]URANT LINE SERVER 01/14/2023 8:07 AM RESTAURANT LINE SERVER us Glenn Cabrera MD LAB BLOOD ORDERABLES Final Re sult [facility] ([place]) 1 [facility] Department [place] [address] * (ABNORMAL) CBC with auto differential (01/14/2023 7:44 AM RESTAURANT LINE SERVER) WBC 16.4(H) 3.8 - 9.9 K/cumm [facility] ([place]) Hgb 13.1 13.0 - 17.5 g/dL [facility] ([place]) Hct 39.7 38.9 - 50.3 % [facility] ([place]) Plt 351 150 - 400 K/cumm [facility] ([place]) MPV 8.8(L) 9.1 - 12.3 fL [facility] ([place]) RBC 4.04(L) 4.30 - 5.80 M/cumm [facility] ([place]) MCV 98.3(H) 81.3 - 96.4 fL [facility] ([place]) MCH 32.4 27.1 - 33.3 pg [facility] ([place]) MCHC 33.0 32.3 - 35.7 g/dL [facility] ([place]) RDW CV 13.4 11.1 - 14.9 % [facility] ([place]) RDW SD 48.5(H) 35.7 - 48.1 fL [facility] ([place]) NRBC abs 0.00 0.00 - 0.01 K/cumm [facility] ([place]) Blood 01/14/2023 7:44 AM [employer]AURANT LINE SERVER 01/14/2023 8:07 AM RESTAURANT LINE SERVER us Donna Escoto MD LAB BLOOD ORDERABLES Final Res ult [facility] ([place]) 1 [facility] Department [place] [address] * aPTT (01/13/2023 11:15 PM RESTAURANT LINE SERVER) Pathologist [facility] aPTT 28 27 - 37 sec [facility] ([place]) Comment: Interpretive data Heparin therapeutic range: 60-94 seconds Range based on correlation with therapeutic heparin activity range of 0.3-0.7 units/ml. Current interpretive data was last revised on 2019. Blood 01/13/2023 11:1 5 PM [employer]AURANT LINE SERVER 01/13/2023 11:26 PM [employer]AURANT LINE SERVER Narrative [facility] ([place]) - 01/14/2023 12:04 AM RESTAURANT LINE SERVER Baseline prior to enoxaparin initiation. Jina Be MD LAB BLOOD ORDERABLES Fin al Result Performing Organization Address City/[facility]/ZIP Co de Phone Number [facility] ([place]) 1 [facility] [place] [place] [address] * Protime-INR (01/13/2023 11:15 PM RESTAURANT LINE SERVER) PT 10.7 9.2 - 13.5 sec [facility] ([place]) INR 1.0 0.9 - 1.2 [facility] ([place]) Comment: Interpretive data Oral anticoagulant therapeutic ranges: Venous thromboembolism prophylaxis or treatment: 2.0-3.0 CARDIOLOGY Standard range: 2.0-3.0 High-intensity range: 2.5-3.5 Refer to indication-specific guidelines for appropriate target ranges for prosthetic heart valve replacement. Current interpretive data was last revised on 2019. Blood 01/13/2023 11:1 5 PM [employer]AURANT LINE SERVER 01/13/2023 11:26 PM RESTAURANT LINE SERVER Narrative [facility] PICHARD[facility] ([place]) - 01/14/2023 12:04 AM RESTAURANT LINE SERVER Baseline prior to enoxaparin initiation. Jina Be MD LAB BLOOD ORDERABLES Fin al Result Performing Organization Address City/[facility]/ZIP Co de Phone Number NNEKA PICHARDO ([place]) 1 [facility] [place] [address] * ECG 12 lead (01/13/2023 9:56 PM RESTAURANT LINE SERVER) 01/13/2023 9:56 PM RESTAURANT LINE SERVER Narrative [facility] - 01/14/2023 8:13 AM RESTAURANT LINE SERVER Vent Rate: 133 bpm RR Interval: 449 msec NV Interval: 0 msec QRS Duration: 99 msec QT Interval: 282 msec QTC Interval: 360 msec P-R-T [place]: 0 - -9 - 89 degrees ATRIAL FIBRILLATION WITH RAPID VENTRICULAR RESPONSE LOW QRS VOLTAGE IN EXTREMITY LEADS [QRS DEFLECTION < 0.5 mV IN LIMB LEADS] ABNORMAL RHYTHM ECG Compared to prior EKG, atrial fibrillation has replaced sinus rhythm Electronically Signed By: Reji Maloney MD Jina Be MD ECG ORDERABLES Final Re sult [facility] * Sodium, urine, random (01/13/2023 4:14 PM RESTAURANT LINE SERVER) Sodium, ur 76 mmol/L NNEKA García ([place]) Comment: Interpretive Data No reference range established. Current interpretive data was last revised 2019. Urine 01/13/2023 4:14 PM RESTAURANT LINE SERVER 01/13/2023 4:18 PM RESTAURANT LINE SERVER Narrative NNEKA PICHARDO ([place]) - 01/13/2023 4:43 PM RESTAURANT LINE SERVER No normal range Glenn Cabrera MD LAB URINE ORDERABLES Final Re sult NNEKA P[facility] ([place]) 1 [facility] Department [place] [address] * Legionella antigen Urine (01/13/2023 4:14 PM RESTAURANT LINE SERVER) Legionella Ag Negative Negative [facility] ([place]) Comment: Interpretive Data This test detects only Legionella pneumophila serogroup 1 antigen. ?? Current interpretive data was last revised on 2020. Testing performed by: [facility], [address] [place] [address], [place] [address] Urine 01/13/2023 4:14 PM RESTAURANT LINE SERVER 01/14/2023 9:22 AM RESTAURANT LINE SERVER us Tawnya Alcocer NP LAB MICROBIOLOGY - GENERAL O RDERABLES Final Result Performing Organization Address City/[facility]/ZIP Co de Phone Number NNEKA PICHARDO ([place]) 1 [facility] [place] [place] [address] * eGFR (01/13/2023 4:44 AM RESTAURANT LINE SERVER) eGFR 46 mL/min/1. 73 m2 [facility] P[facility] ([place]) Comment: Interpretive Data Reference Interval Normal ?>/= [...] interpretive data was last reviewed 2021. Blood 01/13/2023 4:44 AM RESTAURANT LINE SERVER 01/13/2023 5:21 AM RESTAURANT LINE SERVER us Donna Escoto MD LAB BLOOD ORDERABLES Final Res ult Performing Organization Address City/[facility]/ZIP Co de Phone Number NNEKA PICHARDO ([place]) 1 [facility] [place] [address] * (ABNORMAL) Differential, auto (01/13/2023 4:44 AM RESTAURANT LINE SERVER) Neutrophil abs 22.0(H) 1.7 - 6.5 K/cumm [facility] ([place]) Imm gran abs 0.2(H) 0.0 - 0.1 K/cumm [facility] ([place]) Lymphocyte abs 1.8 0.8 - 3.3 K/cumm [facility] ([place]) Monocyte abs 0.9(H) 0.2 - 0.8 K/cumm [facility] ([place]) Eosinophil abs 0.0 0.0 - 0.5 K/cumm [facility] ([place]) Basophil abs 0.0 0.0 - 0.1 K/cumm [facility] ([place]) Neutrophil pct 88.5 % [facility] ([place]) Comment: Interpretive Data Percent cell count reference ranges are not reported, since discordance with absolute values may lead to misinterpretation of CBC data. Current Interpretive Data was last revised on 2018. Imm gran pct 0.6 % [facility] ([place]) Comment: Interpretive Data Percent cell count reference ranges are not reported, since discordance with absolute values may lead to misinterpretation of CBC data. Current Interpretive Data was last revised on 2018. Lymphocyte pct 7.1 % [facility] ([place]) Comment: Interpretive Data Percent cell count reference ranges are not reported, since discordance with absolute values may lead to misinterpretation of CBC data. Current Interpretive Data was last revised on 2018. Monocyte pct 3.6 % [facility] ([place]) Comment: Interpretive Data Percent cell count reference ranges are not reported, since discordance with absolute values may lead to misinterpretation of CBC data. Current Interpretive Data was last revised on 2018. Eosinophil pct 0.0 % [facility] ([place]) Comment: Interpretive Data Percent cell count reference ranges are not reported, since discordance with absolute values may lead to misinterpretation of CBC data. Current Interpretive Data was last revised on 2018. Basophil pct 0.2 % [facility] ([place]) Comment: Interpretive Data Percent cell count reference ranges are not reported, since discordance with absolute values may lead to misinterpretation of CBC data. Current Interpretive Data was last revised on 2018. Blood 01/13/2023 4:44 AM RESTAURANT LINE SERVER 01/13/2023 5:21 AM RESTAURANT LINE SERVER Donna Escoto MD LAB BLOOD ORDERABLES Final Res ult NNEKA [facility] ([place]) 1 [facility] Department [place] [address] * (ABNORMAL) Basic metabolic panel (01/13/2023 4:44 AM RESTAURANT LINE SERVER) Sodium 139 135 - 145 mmol/L [facility] ([place]) Potassium, pl 4.5 3.3 - 4.9 mmol/L [facility] ([place]) Chloride 103 97 - 110 mmol/L [facility] ([place]) CO2 26 22 - 32 mmol/L [facility] ([place]) Anion gap 10 2 - 15 mmol/L [facility] ([place]) BUN 40(H) 8 - 25 mg/dL [facility] ([place]) Creatinine 1.51(H) 0.80 - 1.30 mg/dL [facility] ([place]) Glucose 112 70 - 199 mg/dL [facility] ([place]) [...] - 10.3 mg/dL [facility] ([place]) Blood 01/13/2023 4:44 AM RESTAURANT LINE SERVER 01/13/2023 5:21 AM RESTAURANT LINE SERVER Donna Escoto MD LAB BLOOD ORDERABLES Final Res ult [facility] ([place]) 1 [facility] Department [place] [address] * (ABNORMAL) CBC with auto differential (01/13/2023 4:44 AM RESTAURANT LINE SERVER) WBC 24.8(H) 3.8 - 9.9 K/cumm [facility] ([place]) Hgb 11.9(L) 13.0 - 17.5 g/dL [facility] ([place]) Hct 36.8(L) 38.9 - 50.3 % [facility] ([place]) Plt 360 150 - 400 K/cumm [facility] ([place]) MPV 9.4 9.1 - 12.3 fL [facility] ([place]) RBC 3.73(L) 4.30 - 5.80 M/cumm [facility] ([place]) MCV 98.7(H) 81.3 - 96.4 fL [facility] ([place]) MCH 31.9 27.1 - 33.3 pg [facility] ([place]) MCHC 32.3 32.3 - 35.7 g/dL [facility] ([place]) RDW CV 13.6 11.1 - 14.9 % [facility] ([place]) RDW SD 49.1(H) 35.7 - 48.1 fL [facility] ([place]) NRBC abs 0.00 0.00 - 0.01 K/cumm [facility] ([place]) Blood 01/13/2023 4:44 AM RESTAURANT LINE SERVER 01/13/2023 5:21 AM RESTAURANT LINE SERVER us Donna Escoto MD LAB BLOOD ORDERABLES Final Res ult [facility] ([place]) 1 [facility] [place] [address] * eGFR (01/12/2023 4:46 AM RESTAURANT LINE SERVER) eGFR 44 mL/min/1. 73 m2 [facility] ([place]) Comment: Interpretive Data Reference Interval Normal [...] interpretive data was last reviewed 2021. Blood 01/12/2023 4:46 AM RESTAURANT LINE SERVER 01/12/2023 4:56 AM RESTAURANT LINE SERVER us Donna Escoto MD LAB BLOOD ORDERABLES Final Res ult NNEKA [facility] ([place]) 1 [facility] Department [place] [address] * (ABNORMAL) Differential, auto (01/12/2023 4:46 AM RESTAURANT LINE SERVER) Neutrophil abs 30.8(H) 1.7 - 6.5 K/cumm [facility] ([place]) Imm gran abs 0.4(H) 0.0 - 0.1 K/cumm [facility] ([place]) Lymphocyte abs 0.9 0.8 - 3.3 K/cumm [facility] ([place]) Monocyte abs 0.6 0.2 - 0.8 K/cumm [facility] ([place]) Eosinophil abs 0.0 0.0 - 0.5 K/cumm [facility] ([place]) Basophil abs 0.0 0.0 - 0.1 K/cumm [facility] ([place]) Neutrophil pct 94.1 % [facility] ([place]) Comment: Interpretive Data Percent cell count reference ranges are not reported, since discordance with absolute values may lead to misinterpretation of CBC data. Current Interpretive Data was last revised on 2018. Imm gran pct 1.3 % [facility] ([place]) Comment: Interpretive Data Percent cell count reference ranges are not reported, since discordance with absolute values may lead to misinterpretation of CBC data. Current Interpretive Data was last revised on 2018. Lymphocyte pct 2.8 % [facility] ([place]) Comment: Interpretive Data Percent cell count reference ranges are not reported, since discordance with absolute values may lead to misinterpretation of CBC data. Current Interpretive Data was last revised on 2018. Monocyte pct 1.7 % [facility] ([place]) Comment: Interpretive Data Percent cell count reference ranges are not reported, since discordance with absolute values may lead to misinterpretation of CBC data. Current Interpretive Data was last revised on 2018. Eosinophil pct 0.0 % [facility] ([place]) Comment: Interpretive Data Percent cell count reference ranges are not reported, since discordance with absolute values may lead to misinterpretation of CBC data. Current Interpretive Data was last revised on 2018. Basophil pct 0.1 % [facility] ([place]) Comment: Interpretive Data Percent cell count reference ranges are not reported, since discordance with absolute values may lead to misinterpretation of CBC data. Current Interpretive Data was last revised on 2018. Blood 01/12/2023 4:46 AM RESTAURANT LINE SERVER 01/12/2023 4:56 AM RESTAURANT LINE SERVER us Donna Escoto MD LAB BLOOD ORDERABLES Final Res ult NNEKA PICHARDO ([place]) 1 [facility] Department [place] [address] * (ABNORMAL) Basic metabolic panel (01/12/2023 4:46 AM RESTAURANT LINE SERVER) Sodium 134(L) 135 - 145 mmol/L [facility] ([place]) Potassium, pl 4.4 3.3 - 4.9 mmol/L [facility] ([place]) Chloride 98 97 - 110 mmol/L [facility] ([place]) CO2 24 22 - 32 mmol/L [facility] ([place]) Anion gap 12 2 - 15 mmol/L [facility] ([place]) BUN 53(H) 8 - 25 mg/dL [facility] ([place]) Creatinine 1.57(H) 0.80 - 1.30 mg/dL [facility] ([place]) Glucose 174 70 - 199 mg/dL [facility] Comment: Interpretive Data Fasting glucose [...] interpretive data was last revised 2022. Calcium 8.4(L) 8.5 - 10.3 mg/dL [facility] ([place]) Blood 01/12/2023 4:46 AM RESTAURANT LINE SERVER 01/12/2023 4:56 AM RESTAURANT LINE SERVER us Donna Escoto MD LAB BLOOD ORDERABLES Final Res ult [facility] ([place]) 1 [facility] Department of Laboratories [place], [place] [id number] * (ABNORMAL) CBC with auto differential (01/12/2023 4:46 AM RESTAURANT LINE SERVER) WBC 32.7(H) 3.8 - 9.9 K/cumm [facility] ([place]) Hgb 12.1(L) 13.0 - 17.5 g/dL [facility] ([place]) Hct 36.7(L) 38.9 - 50.3 % [facility] ([place]) Plt 330 150 - 400 K/cumm [facility] ([place]) MPV 9.2 9.1 - 12.3 fL NNEKA PICHARDO ([place]) RBC 3.73(L) 4.30 - 5.80 M/cumm NNEKA PICHARDO ([place]) MCV 98.4(H) 81.3 - 96.4 fL [facility] ([place]) MCH 32.4 27.1 - 33.3 pg [facility] ([place]) MCHC 33.0 32.3 - 35.7 g/dL [facility] ([place]) RDW CV 13.4 11.1 - 14.9 % [facility] ([place]) RDW SD 47.7 35.7 - 48.1 fL [facility] ([place]) NRBC abs 0.00 0.00 - 0.01 K/cumm [facility] ([place]) Blood 01/12/2023 4:46 AM RESTAURANT LINE SERVER 01/12/2023 4:56 AM RESTAURANT LINE SERVER us Donna Escoto MD LAB BLOOD ORDERABLES Final Res ult NNEKA PICHARDO ([place]) 1 [facility] Department [place] [address] * CT Chest WO Contrast (01/11/2023 9:57 AM RESTAURANT LINE SERVER) Anatomical Region Laterality Modality Body N/A Computed Tomogra phy 01/11/2023 11:5 1 AM RESTAURANT LINE SERVER Narrative 01/11/2023 11:57 AM RESTAURANT LINE SERVER EXAM DESCRIPTION: ?? CT CHEST WO CONTRAST REASON FOR STUDY: ?? Dyspnea, chronic, unclear etiology ?? Sob yesterday, elevated WBC ? TECHNIQUE: CT scan of the chest performed without intravenous contrast using helical scanning technique. Reconstructed coronal and sagittal MPR images reviewed. ??All images stored on PACS. ??Automated exposure control was used as a dose optimization technique for this examination. COMPARISON: ?? 01/16/2022 REFERENCE: Per ACR white paper recommendations, unless otherwise specified no follow-up imaging is recommended for incidental renal and adrenal lesions per consensus recommendations based on imaging criteria. Further lab evaluation could be pursued based on clinical findings. FINDINGS: The sensitivity for detection of solid visceral lesions is diminished without the use of intravenous contrast. LUNGS: ?? Moderate upper lobe predominant centrilobular and paraseptal emphysema. ??Grossly stable posterior biapical pleuroparenchymal consolidations as evidence for scarring. ??New mild patchy multifocal ground-glass opacities are noted within the lungs bilaterally. ??This is favored to represent atypical pneumonia. ??No new consolidation. ??No pulmonary edema is seen. PLEURA: ?? No effusion. No pneumothorax. MEDIASTINUM/KRISTYN: ?? Prominent mediastinal lymph nodes are grossly stable likely reactive. ??No hilar lymphadenopathy. HEART: ?? The heart is normal in size. ??Small pericardial effusion is chronic. CORONARY ARTERY CALCIFICATION: ??Moderate coronary artery calcification. VASCULATURE: ?? Aorta is normal in caliber. AXILLA: ?? No adenopathy. CHEST WALL: ?? Gynecomastia HARDWARE/LINES/TUBES: ?? None. UPPER ABDOMEN: ?? Calcified granulomas within the spleen. ??Partially imaged mild perinephric stranding. ??Partially imaged 1.6 cm right renal cyst better evaluated on previous ultrasound dated 01/30/2022. ??Please refer to that report for further findings and follow-up recommendations. MUSCULOSKELETAL: ?? No significant abnormality. OTHER: ?? No other significant abnormality. IMPRESSION: ?? 1. ?? New mild multifocal ground-glass opacities compared to 01/16/2022. ??This likely represents atypical pneumonia. ??Recommend follow-up CT in 2 months to document improvement. THIS IS AN ELECTRONICALLY VERIFIED FINAL REPORT 01/11/2023 11:57 AM - Electronically signed by ??Braydon Roy M.D. AG: AG D: ??01/11/2023 11:57 AM T: ??01/11/2023 11:57 AM Report ID: [id number] Reading Location: ??[id number] Procedure Note Braydon Roy MD - 01/11/2023 EXAM DESCRIPTION: CT CHEST WO CONTRAST REASON FOR STUDY: Dyspnea, chronic, unclear etiology Sob yesterday, elevated WBC TECHNIQUE: CT scan of the chest performed without intravenous contrastusing helical scanning technique. Reconstructed coronal and sagittal MPR images reviewed. All images stored on PACS. Automated exposure control was usedas a dose optimization technique for this examination. COMPARISON: 01/16/2022 REFERENCE: Per ACR white paper recommendations, unless otherwise specifiedno follow-up imaging is recommended for incidental renal and adrenal lesionsper consensus recommendations based on imaging criteria. Further labevaluation could be pursued based on clinical findings. FINDINGS: The sensitivity for detection of solid visceral lesions is diminishedwithout the use of intravenous contrast. LUNGS: Moderate upper lobe predominant centrilobular and paraseptal emphysema. Grossly stable posterior biapical pleuroparenchymalconsolidations as evidence for scarring. New mild patchy multifocal ground-glassopacities are noted within the lungs bilaterally. This is favored to representatypical pneumonia. No new consolidation. No pulmonary edema is seen. PLEURA: No effusion. No pneumothorax. MEDIASTINUM/KRISTYN: Prominent mediastinal lymph nodes are grossly stable likely reactive. No hilar lymphadenopathy. HEART: The heart is normal in size. Small pericardial effusion ischronic. CORONARY ARTERY CALCIFICATION: Moderate coronary artery calcification. VASCULATURE: Aorta is normal in caliber. AXILLA: No adenopathy. CHEST WALL: Gynecomastia HARDWARE/LINES/TUBES: None. UPPER ABDOMEN: Calcified granulomas within the spleen. Partially imaged mild perinephric stranding. Partially imaged 1.6 cm right renal cystbetter evaluated on previous ultrasound dated 01/30/2022. Please refer to that report for further findings and follow-up recommendations. MUSCULOSKELETAL: No significant abnormality. OTHER: No other significant abnormality. IMPRESSION: 1. New mild multifocal ground-glass opacities compared to 01/16/2022.This likely represents atypical pneumonia. Recommend follow-up CT in 2 monthsto document improvement. THIS IS AN ELECTRONICALLY VERIFIED FINAL REPORT 01/11/2023 11:57 AM - Electronically signed by Braydon Roy M.D. AG: DION Report ID: [id number] Reading Location: [place] [address] [address] PROCEDURES Final Result * eGFR (01/11/2023 7:06 AM RESTAURANT LINE SERVER) Pathologist [facility] eGFR 50 mL/min/1. 73 m2 [facility] ([place]) Comment: Interpretive Data Reference Interval Normal [...] interpretive data was last reviewed 2021. Blood 01/11/2023 7:06 AM RESTAURANT LINE SERVER 01/11/2023 7:38 AM RESTAURANT LINE SERVER us Donna Escoto MD LAB BLOOD ORDERABLES Final Res ult [facility] ([place]) 1 [facility] Department of Laboratories [place], [place] [id number] * (ABNORMAL) Differential, auto (01/11/2023 7:06 AM RESTAURANT LINE SERVER) Pathologist [facility] Neutrophil abs 25.3(H) 1.7 - 6.5 K/cumm [facility] ([place]) Imm gran abs 0.3(H) 0.0 - 0.1 K/cumm [facility] ([place]) Lymphocyte abs 1.1 0.8 - 3.3 K/cumm [facility] ([place]) Monocyte abs 0.3 0.2 - 0.8 K/cumm [facility] ([place]) Eosinophil abs 0.0 0.0 - 0.5 K/cumm [facility] ([place]) Basophil abs 0.0 0.0 - 0.1 K/cumm [facility] ([place]) Neutrophil pct 93.8 % [facility] ([place]) Comment: Interpretive Data Percent cell count reference ranges are not reported, since discordance with absolute values may lead to misinterpretation of CBC data. Current Interpretive Data was last revised on 2018. Imm gran pct 1.2 % [facility] ([place]) Comment: Interpretive Data Percent cell count reference ranges are not reported, since discordance with absolute values may lead to misinterpretation of CBC data. Current Interpretive Data was last revised on 2018. Lymphocyte pct 3.9 % [facility] ([place]) Comment: Interpretive Data Percent cell count reference ranges are not reported, since discordance with absolute values may lead to misinterpretation of CBC data. Current Interpretive Data was last revised on 2018. Monocyte pct 1.0 % [facility] ([place]) Comment: Interpretive Data Percent cell count reference ranges are not reported, since discordance with absolute values may lead to misinterpretation of CBC data. Current Interpretive Data was last revised on 2018. Eosinophil pct 0.0 % [facility] ([place]) Comment: Interpretive Data Percent cell count reference ranges are not reported, since discordance with absolute values may lead to misinterpretation of CBC data. Current Interpretive Data was last revised on 2018. Basophil pct 0.1 % [facility] ([place]) Comment: Interpretive Data Percent cell count reference ranges are not reported, since discordance with absolute values may lead to misinterpretation of CBC data. Current Interpretive Data was last revised on 2018. Blood 01/11/2023 7:06 AM RESTAURANT LINE SERVER 01/11/2023 7:38 AM RESTAURANT LINE SERVER us Donna Escoto MD LAB BLOOD ORDERABLES Final Res ult NNEKA P[facility]O ([place]) 1 [facility] [place] [address] * Procalcitonin (01/11/2023 7:06 AM RESTAURANT LINE SERVER) Pathologist [facility] Procalcitonin 0.14 <=0.15 ng/mL [facility] ([place]) Comment: ADDITIONAL INFORMATION In some immunoassays, the presence of unusually high concentrations of analyte may result in a high-dose hook effect. This may result in a lower or even normal measured analyte concentration. If the reported result is inconsistent with the clinical presentation, the laboratory should be alerted for troubleshooting. For diagnostic purposes, these immunoassay results should always be assessed in conjunction with the patients medical history, clinical examination and other findings. Test Performed by: [place] [address] Television Equipment Operator: Manuel Carlton M.D. Ph.D.; CLIA# [id number] Blood 01/11/2023 7:06 AM RESTAURANT LINE SERVER 01/11/2023 7:38 AM RESTAURANT LINE SERVER Donna Escoto MD LAB BLOOD ORDERABLES Final Res ult [facility] ([place]) 1 [facility] [place] [address] * (ABNORMAL) Basic metabolic panel (01/11/2023 7:06 AM RESTAURANT LINE SERVER) Pathologist [facility] Sodium 135 135 - 145 mmol/L [facility] ([place]) Potassium, pl 4.5 3.3 - 4.9 mmol/L [facility] ([place]) Chloride 96(L) 97 - 110 mmol/L [facility] ([place]) CO2 24 22 - 32 mmol/L [facility] ([place]) Anion gap 14 2 - 15 mmol/L [facility] ([place]) BUN 34(H) 8 - 25 mg/dL [facility] ([place]) Creatinine 1.42(H) 0.80 - 1.30 mg/dL [facility] ([place]) Glucose 164 70 - 199 mg/dL [facility] ([place]) [...] interpretive data was last revised 2022. Calcium 9.5 8.5 - 10.3 mg/dL [facility] ([place]) Blood 01/11/2023 7:06 AM RESTAURANT LINE SERVER 01/11/2023 7:38 AM RESTAURANT LINE SERVER us Donna Escoto MD LAB BLOOD ORDERABLES Final Res ult [facility] ([place]) 1 [facility] Department [place] [address] * (ABNORMAL) CBC with auto differential (01/11/2023 7:06 AM RESTAURANT LINE SERVER) WBC 27.0(H) 3.8 - 9.9 K/cumm [facility] ([place]) Hgb 12.9(L) 13.0 - 17.5 g/dL [facility] ([place]) Hct 38.5(L) 38.9 - 50.3 % [facility] ([place]) Plt 316 150 - 400 K/cumm [facility] ([place]) MPV 10.1 9.1 - 12.3 fL [facility] ([place]) RBC 3.95(L) 4.30 - 5.80 M/cumm [facility] ([place]) MCV 97.5(H) 81.3 - 96.4 fL [facility] ([place]) MCH 32.7 27.1 - 33.3 pg [facility] ([place]) MCHC 33.5 32.3 - 35.7 g/dL [facility] ([place]) RDW CV 13.4 11.1 - 14.9 % [facility] ([place]) RDW SD 47.8 35.7 - 48.1 fL [facility] ([place]) NRBC abs 0.00 0.00 - 0.01 K/cumm [facility] ([place]) Blood 01/11/2023 7:06 AM RESTAURANT LINE SERVER 01/11/2023 7:38 AM RESTAURANT LINE SERVER Donna Escoto MD LAB BLOOD ORDERABLES Final Res ult Performing Organization Address [facility]/ZIP Co de Phone Number N[facility]KA PICHARDO ([place]) 1 [facility] [place] [address] * (ABNORMAL) Mycoplasma pneumoniae antibody, IgG and IgM (01/11/2023 7:06 AM RESTAURANT LINE SERVER) M. pneumoniae IgG Positive(A) Negative [facility] ([place]) M. pneumoniae IgM Negative Negative [facility] ([place]) M. pneumoniae interp SEE BELOW [facility] ([place]) Comment: RESULT: Results suggest past exposure. ADDITIONAL INFORMATION This test has been modified from the firer locomotive's instructions. Its performance characteristics were determined by [facility] in a manner consistent with CLIA requirements. This test has not been cleared or approved by the U.S. Food and Drug Administration. Test Performed by: [facility] - [address] [address] Television Equipment Operator: Manuel Carlton M.D. Ph.D.; CLIA# [id number] Blood 01/11/2023 7:06 AM RESTAURANT LINE SERVER 01/11/2023 7:38 AM RESTAURANT LINE SERVER Donna Escoto MD LAB MICROBIOLOGY - GENERAL ORD ERABLES Final Result Performing Organization Address City/[facility]/ZIP Co de Phone Number NNEKA PICHARDO ([place]) 1 [facility] [place] [address] * Troponin T high-sensitivity 6-hour (01/10/2023 5:04 PM RESTAURANT LINE SERVER) Trop T hs 15 <=22 ng/L [facility] ([place]) Comment: Interpretive Data For further hscTnT resources including the diagnostic algorithm and an aid in interpretation, copy and paste this link: https://nrl.Catbird.org/show/hsTrop Current Interpretive Data last revised 2020. Trop T hs delta -3 ng/L [facility] ([place]) Trop T hs interp Insignificant [facility] ([place]) Blood 01/10/2023 5:04 PM RESTAURANT LINE SERVER 01/10/2023 5:18 PM RESTAURANT LINE SERVER Vanesa Daniels MD LAB BLOOD ORDERABLES Final Result Performing Organization Address [facility]/ZIP Co de Phone Number [facility] ([place]) 1 [facility] [place] [place] [address] * Troponin T high-sensitivity 4-hour (01/10/2023 2:52 PM RESTAURANT LINE SERVER) Trop T hs 16 <=22 ng/L [facility] ([place]) Comment: Interpretive Data For further hscTnT resources including the diagnostic algorithm and an aid in interpretation, copy and paste this link: https://nrl.Catbird.org/show/hsTrop Current Interpretive Data last revised 2020. Trop T hs delta -2 ng/L [facility] ([place]) Trop T hs interp Insignificant [facility] ([place]) Blood 01/10/2023 2:52 PM RESTAURANT LINE SERVER 01/10/2023 2:54 PM RESTAURANT LINE SERVER us Vanesa Daniels MD LAB BLOOD ORDERABLES Final Result [facility] PICHARDO ([place]) 1 [facility] [place] [place] [address] * (ABNORMAL) Urinalysis, microscopic only (01/10/2023 1:16 PM RESTAURANT LINE SERVER) WBC, ur 0-5 0 - 5 /HPF [facility] ([place]) RBC, ur 11-20(A) 0 - 2 /HPF [facility] ([place]) Epithelial cells, squamous, ur 1-5 0 - 5 /HPF [facility] ([place]) Mucous, ur Present(A) [facility] ([place]) Hyaline casts, ur 1-5 0 - 10 /LPF [facility] ([place]) Culture Reflex Comment Reflex conditions for urine culture (WBC >10) not met. [facility] ([place]) Urine 01/10/2023 1:16 PM RESTAURANT LINE SERVER 01/10/2023 1:21 PM RESTAURANT LINE SERVER us Vanesa Daniels MD LAB URINE ORDERABLES Final Result [facility] ([place]) 1 [facility] Department [place] [address] * (ABNORMAL) Urinalysis reflex to microscopic and culture Urine (01/10/2023 1:16 PM RESTAURANT LINE SERVER) Color, ur Yellow Yellow [facility] ([place]) Clarity, ur Clear Clear [facility] ([place]) Specific gravity, ur 1.023 1.003 - 1.030 [facility] ([place]) pH, urine 7.0 [facility] ([place]) Protein, ur ql 1+(A) Negative [facility] ([place]) Glucose, ur ql Negative Negative [facility] ([place]) Ketones, ur Negative Negative [facility] ([place]) Bilirubin, ur Negative Negative [facility] ([place]) Blood, ur Negative Negative [facility] ([place]) Urobilinogen, ur 2.0(A) <2.0 mg/dL [facility] ([place]) Nitrite, ur Negative Negative [facility] ([place]) Leukocyte esterase, ur Negative Negative [facility] ([place]) UA reflex comment Reflex to microscopic UA will be performed. [facility] ([place]) Urine 01/10/2023 1:16 PM RESTAURANT LINE SERVER 01/10/2023 1:21 PM RESTAURANT LINE SERVER Narrative [facility] ([place]) - 01/10/2023 1:30 PM RESTAURANT LINE SERVER ?? Urine pH is affected by diet, medications, systemic acid-base disturbances, and renal tubular function. ??pH may affect urinary stone formation. ??For example, urine pH below 6.0 may help reduce the tendency for calcium phosphate stones and pH greater than 6.0 may reduce the tendency for uric acid stone formation. Source: [facility] [employer]. Last revised 11-19-2017 Vanesa Daniels MD LAB MICROBIOLOGY - GENERAL ORDERABLES Final Result Performing Organization Address [facility] de Phone Number NNEKA PICHARDO ([place]) 1 [facility] [place] [address] * Troponin T high-sensitivity 2-hour (01/10/2023 12:44 PM RESTAURANT LINE SERVER) Trop T hs 18 <=22 ng/L [facility] PICHARD[facility] ([place]) Comment: Interpretive Data For further hscTnT resources including the diagnostic algorithm and an aid in interpretation, copy and paste this link: https://nrl.testcatalog.org/show/hsTrop Current Interpretive Data last revised 2020. Trop T hs delta 0 ng/L [facility] ([place]) Trop T hs interp Insignificant [facility] ([place]) Blood 01/10/2023 12:4 4 PM RESTAURANT LINE SERVER 01/10/2023 12:46 PM RESTAURANT LINE SERVER Vanesa Daniels MD LAB BLOOD ORDERABLES Final Result Performing Organization Address [facility] Co de Phone Number NNEKA PICHARDO ([place]) 1 [facility] [place] [address] * Blood gas, venous (01/10/2023 12:42 PM RESTAURANT LINE SERVER) pH, Venous 7.43 7.32 - 7.43 [facility] ([place]) PCO2, Venous 42 40 - 50 mmHg [facility] ([place]) PO2, Venous 84 mmHg [facility] Schwarz ([place]) Comment: Interpretive Data No Reference Range Established Current Interpretive Data was last revised on 2018. HCO3 Venous, Calculated 27 20 - 30 mmol/L [facility] ([place]) BE, venous 3 mmol/L [facility] ([place]) Comment: Interpretive Data No Reference Range Established Current Interpretive Data was last revised on 2018. Blood 01/10/2023 12:4 2 PM RESTAURANT LINE SERVER 01/10/2023 12:46 PM RESTAURANT LINE SERVER Vanesa Daniels MD LAB BLOOD ORDERABLES Final Result [facility] ([place]) 1 [facility] Department [place] [address] * Influenza A/B, RSV, and COVID-19 PCR Nasopharyngeal (01/10/2023 12:29 PM RESTAURANT LINE SERVER) COVID-19 RNA Negative Negative [facility] ([place]) Influenza A RNA Negative Negative [facility] ([place]) Influenza B RNA Negative Negative [facility] ([place]) RSV RNA Negative Negative [facility] ([place]) Comment: Interpretive data: This test is performed using the [employer] Xpert Xpress CoV-2/Flu/RSV plus assay. This is a multiplex, real-time reverse transcriptase PCR assay intended for the qualitative detection of nucleic acid from SARS-CoV-2, influenza A, influenza B, and respiratory syncytial virus. This assay has been reviewed by the FDA for Emergency Use Authorization (EUA). The performance characteristics have been verified by the performing laboratory. Results must be considered in the clinical context, and a negative result does not rule out infection. Interpretive Data last revised 2021. Nasopharyngeal 01/10/2023 12 :29 PM RESTAURANT LINE SERVER 01/10/2023 12:31 PM RESTAURANT LINE SERVER Narrative [facility] ([place]) - 01/10/2023 1:17 PM RESTAURANT LINE SERVER Is the Patient experiencing symptoms consistent with COVID?->Yes Date of Symptom Onset->01/08/23 Reason for testing?->Symptomatic Vanesa Daniels MD LAB MICROBIOLOGY - GENERAL ORDERABLES Final Result [facility] PICHARDO ([place]) 1 [facility] Department [place] [address] * Blood culture Blood Peripheral (01/10/2023 11:41 AM RESTAURANT LINE SERVER) Report Final Report: No growth [facility] ([place]) Comment:Testing performed by : [facility], [address] [place]., [address] Blood (Peripheral) 01/10/2023 11:41 AM RESTAURANT LINE SERVER 01/10/2023 3:57 PM RESTAURANT LINE SERVER Narrative [facility] PICHARDO ([place]) - 01/14/2023 4:00 PM RESTAURANT LINE SERVER From a different site than #1. Draw Blood cultures before administration of Antibiotics 1. ?Blood cultures are incubated for 4 days on a continuously monitored blood culture system. The first report of a negative culture is issued within 24 hours of receipt of the specimen in the laboratory. 2. ?Positive culture results are reported as soon as they are detected. 3. ?The most important factor for detection of microbes in the setting of bloodstream infection is the volume of blood submitted for culture. Failure to collect an optimal blood volume can result in false negative blood cultures. For pediatric patients, the recommended blood volume to collect is 1 mL of blood per year of patient age (up to 20 mL) per blood culture set. For adult patients, 20 mL of blood, divided equally between aerobic and anaerobic blood culture bottles, is recommended for each blood culture set. 4. ?For blood cultures with Gram-positive cocci, a rapid molecular test for organism identification may be performed using the SelStorigene Gram-Positive Blood Culture Assay. This assay detects microbial DNA in positive blood culture broth via hybridization of target DNA to capture oligonucleotides on a microarray. This assay has been cleared by the [place] Food and Drug Administration and its performance characteristics have been verified by the [facility]. 5. ?For questions about this culture, contact the Microbiology Laboratory at [phone]. Interpretive data was last revised on 2020. us Vanesa Daniels MD LAB MICROBIOLOGY - GENERAL ORDERABLES Final Result NNEKA PICHARDO ([place]) 1 [facility] Department [place] [address] * Blood culture Blood Peripheral (01/10/2023 11:30 AM RESTAURANT LINE SERVER) Report Final Report: No growth [facility]NEKA PICHARDO ([place]) Comment:Testing performed by : [facility], [address] [place]., [address] Blood (Peripheral) 01/10/2023 11:30 AM RESTAURANT LINE SERVER 01/10/2023 3:57 PM RESTAURANT LINE SERVER Narrative NNEKA PICHADRO ([place]) - 01/14/2023 4:00 PM RESTAURANT LINE SERVER Draw Blood cultures before administration of Antibiotics 1. ?Blood cultures are incubated for 4 days on a continuously monitored blood culture system. The first report of a negative culture is issued within 24 hours of receipt of the specimen in the laboratory. 2. ?Positive culture results are reported as soon as they are detected. 3. ?The most important factor for detection of microbes in the setting of bloodstream infection is the volume of blood submitted for culture. Failure to collect an optimal blood volume can result in false negative blood cultures. For pediatric patients, the recommended blood volume to collect is 1 mL of blood per year of patient age (up to 20 mL) per blood culture set. For adult patients, 20 mL of blood, divided equally between aerobic and anaerobic blood culture bottles, is recommended for each blood culture set. 4. ?For blood cultures with Gram-positive cocci, a rapid molecular test for organism identification may be performed using the SelStorigene Gram-Positive Blood Culture Assay. This assay detects microbial DNA in positive blood culture broth via hybridization of target DNA to capture oligonucleotides on a microarray. This assay has been cleared by the [place] Food and Drug Administration and its performance characteristics have been verified by the [facility]. 5. ?For questions about this culture, contact the Microbiology Laboratory at [phone]. Interpretive data was last revised on 2020. Vanesa Daniels MD LAB MICROBIOLOGY - GENERAL ORDERABLES Final Result [facility] PICHARDO ([place]) 1 [facility] Department [place] [address] * (ABNORMAL) Differential, auto (01/10/2023 10:36 AM RESTAURANT LINE SERVER) Neutrophil abs 18.1(H) 1.7 - 6.5 K/cumm [facility] ([place]) Imm gran abs 0.1 0.0 - 0.1 K/cumm [facility] ([place]) Lymphocyte abs 2.0 0.8 - 3.3 K/cumm [facility] ([place]) Monocyte abs 0.9(H) 0.2 - 0.8 K/cumm [facility] ([place]) Eosinophil abs 0.1 0.0 - 0.5 K/cumm [facility] ([place]) Basophil abs 0.0 0.0 - 0.1 K/cumm [facility] ([place]) Neutrophil pct 85.3 % [facility] ([place]) Comment: Interpretive Data Percent cell count reference ranges are not reported, since discordance with absolute values may lead to misinterpretation of CBC data. Current Interpretive Data was last revised on 2018. Imm gran pct 0.4 % [facility] ([place]) Comment: Interpretive Data Percent cell count reference ranges are not reported, since discordance with absolute values may lead to misinterpretation of CBC data. Current Interpretive Data was last revised on 2018. Lymphocyte pct 9.6 % [facility] ([place]) Comment: Interpretive Data Percent cell count reference ranges are not reported, since discordance with absolute values may lead to misinterpretation of CBC data. Current Interpretive Data was last revised on 2018. Monocyte pct 4.2 % [facility] ([place]) Comment: Interpretive Data Percent cell count reference ranges are not reported, since discordance with absolute values may lead to misinterpretation of CBC data. Current Interpretive Data was last revised on 2018. Eosinophil pct 0.3 % [facility] ([place]) Comment: Interpretive Data Percent cell count reference ranges are not reported, since discordance with absolute values may lead to misinterpretation of CBC data. Current Interpretive Data was last revised on 2018. Basophil pct 0.2 % [facility] PICHARDO ([place]) Comment: Interpretive Data Percent cell count reference ranges are not reported, since discordance with absolute values may lead to misinterpretation of CBC data. Current Interpretive Data was last revised on 2018. Blood 01/10/2023 10:3 6 AM RESTAURANT LINE SERVER 01/10/2023 10:40 AM RESTAURANT LINE SERVER Vanesa Daniels MD LAB BLOOD ORDERABLES Final Result Performing Organization Address [facility] Co de Phone Number [facility] ([place]) 1 [facility] [place] [address] * Troponin T high-sensitivity series (baseline, 2hr, 4hr, 6hr) (01/10/2023 10:36 AM RESTAURANT LINE SERVER) Trop T hs 18 <=22 ng/L [facility]NEKA PICHARDO ([place]) Comment: Interpretive Data For further hscTnT resources including the diagnostic algorithm and an aid in interpretation, copy and paste this link: https://nrl.testcatalog.org/show/hsTrop Current Interpretive Data last revised 2020. Blood 01/10/2023 10:3 6 AM RESTAURANT LINE SERVER 01/10/2023 10:40 AM RESTAURANT LINE SERVER Vanesa Daniels MD LAB BLOOD ORDERABLES Final Result Performing Organization Address [facility] de Phone Number NNEKA PICHARDO ([place]) 1 [facility] [place] [address] * Sepsis Lactate w/ Reflex (01/10/2023 10:36 AM RESTAURANT LINE SERVER) Sepsis Lactate 1.6 0.7 - 2.0 mmol/L [facility] PICHARDO ([place]) Blood 01/10/2023 10:3 6 AM RESTAURANT LINE SERVER 01/10/2023 10:40 AM RESTAURANT LINE SERVER Vanesa Daniels MD LAB BLOOD ORDERABLES Final Result NNEKA PICHARDO ([place]) 1 [facility] Department [place] [address] * Pro B-type natriuretic peptide (01/10/2023 10:36 AM RESTAURANT LINE SERVER) NT-proBNP 316 <=450 pg/mL [facility]NEKA PICHARDO ([place]) Comment: Interpretive Comments: A. Dyspnea in Acute [...] et.al. Eur Heart J. 2006:27:330-337. 2. Ashlee HILL, Sophia SINGLETON. J. AM Luis Alberto Cardiol: Cardiovasc Imag. 2009;2: 216- 225. Interpretive Data Last Revised Date: 2018. Blood 01/10/2023 10:3 6 AM RESTAURANT LINE SERVER 01/10/2023 10:40 AM RESTAURANT LINE SERVER Vanesa Daniels MD LAB BLOOD ORDERABLES Final Result [facility] ([place]) 1 [facility] Department [place] [address] * (ABNORMAL) CBC with auto differential (01/10/2023 10:36 AM RESTAURANT LINE SERVER) WBC 21.2(H) 3.8 - 9.9 K/cumm [facility] ([place]) Hgb 13.5 13.0 - 17.5 g/dL [facility] ([place]) Hct 40.6 38.9 - 50.3 % [facility] ([place]) Plt 318 150 - 400 K/cumm [facility] ([place]) MPV 9.2 9.1 - 12.3 fL [facility] ([place]) RBC 4.19(L) 4.30 - 5.80 M/cumm [facility] ([place]) MCV 96.9(H) 81.3 - 96.4 fL [facility] ([place]) MCH 32.2 27.1 - 33.3 pg [facility] ([place]) MCHC 33.3 32.3 - 35.7 g/dL [facility] ([place]) RDW CV 13.4 11.1 - 14.9 % [facility] ([place]) RDW SD 48.3(H) 35.7 - 48.1 fL [facility] ([place]) NRBC abs 0.00 0.00 - 0.01 K/cumm [facility] ([place]) Blood 01/10/2023 10:3 6 AM RESTAURANT LINE SERVER 01/10/2023 10:40 AM RESTAURANT LINE SERVER Vanesa Daniels MD LAB BLOOD ORDERABLES Final Result [facility] ([place]) 1 [facility] Department [place] [address] * XR Chest 1 Vw Portable (01/10/2023 10:33 AM RESTAURANT LINE SERVER) Anatomical Region Laterality Modality Body, Chest N/A Computed Radiogr aphy 01/10/2023 10:3 5 AM RESTAURANT LINE SERVER Narrative 01/10/2023 10:35 AM RESTAURANT LINE SERVER EXAM DESCRIPTION: ?? XR CHEST 1 VIEW REASON FOR STUDY: ?? dyspnea ?? EMS has o2 sats of 88% on room air. Placed on 2L Increase in sats to 90s. Nev treatment given enroute. States he has been sick with cough and body aches for two weeks. Negative covid test this morning. ? TECHNIQUE: ?? Single ??radiographic view of the chest acquired. COMPARISON: ?? Chest CT performed 01/16/2022 FINDINGS: LUNGS/PLEURA: ?? No focal consolidation or pneumothorax. No pleural effusion. HEART/MEDIASTINUM: ?? Heart size is normal. Normal mediastinal and hilar contours. HARDWARE/LINES/TUBES: ?? None. BONES: ?? No acute findings. OTHER: ?? No other significant finding. IMPRESSION: ??No acute cardiopulmonary abnormality. THIS IS AN ELECTRONICALLY VERIFIED FINAL REPORT 01/10/2023 10:35 AM - Electronically signed by ??Nahid Zavala M.D. LL: LL D: ??01/10/2023 10:35 AM T: ??01/10/2023 10:35 AM Report ID: [id number] Reading Location: ??[id number] Procedure Note Nahid Zavala MD - 01/10/2023 EXAM DESCRIPTION: XR CHEST 1 VIEW REASON FOR STUDY: dyspnea EMS has o2 sats of 88% on room air. Placed on 2L Increase in sats to 90s.Nev treatment given enroute. States he has been sick with cough and body achesfor two weeks. Negative covid test this morning. TECHNIQUE: Single radiographic view of the chest acquired. COMPARISON: Chest CT performed 01/16/2022 FINDINGS: LUNGS/PLEURA: No focal consolidation or pneumothorax. No pleuraleffusion. HEART/MEDIASTINUM: Heart size is normal. Normal mediastinal and hilar contours. HARDWARE/LINES/TUBES: None. BONES: No acute findings. OTHER: No other significant finding. IMPRESSION: No acute cardiopulmonary abnormality. THIS IS AN ELECTRONICALLY VERIFIED FINAL REPORT 01/10/2023 10:35 AM - Electronically signed by Nahid Zavala M.D. LL: LL Report ID: [id number] Reading Location: [id number] Vanesa Daniels MD IMG XR PROCEDURES Final Re sult * ECG 12 lead (01/10/2023 9:55 AM RESTAURANT LINE SERVER) 01/10/2023 9:55 AM RESTAURANT LINE SERVER Narrative [facility] - 01/10/2023 11:36 AM RESTAURANT LINE SERVER Vent Rate: 112 bpm RR Interval: 533 msec NV Interval: 145 msec QRS Duration: 103 msec QT Interval: 305 msec QTC Interval: 371 msec P-R-T [place]: 59 - -35 - 78 degrees SINUS TACHYCARDIA WITH OCCASIONAL SUPRAVENTRICULAR PREMATURE COMPLEXES LEFT AXIS DEVIATION ??[QRS AXIS < -30] ABNORMAL ECG Compared to prior EKG, heart rate has increased PVCs are no longer present Electronically Signed By: Reji Maloney MD Vanesa Daniels MD ECG ORDERABLES Final Resu lt [facility] documented in this encounter Visit Diagnoses Diagnosis COPD exacerbation (HCC)- Primary Obstructive chronic bronchitis with exacerbation COPD exacerbation (HCC) Obstructive chronic bronchitis with exacerbation Hypoxemia Acute kidney injury (HCC) Leukocytosis, unspecified type Basal cell carcinoma of lower leg, right Benign hypertension Essential hypertension, benign documented in this encounter Admitting Diagnoses Diagnosis COPD exacerbation (HCC) Obstructive chronic bronchitis with exacerbation documented in this encounter Administered Medications Inactive Administered Medications - up to 3 most recent administrations Medication Order MAR Action Action Date Dose Rate Site amLODIPine (NORVASC) tablet 5 mg 5 mg, oral, Daily, First dose on 01/10/23 at 1945 Given 01/15/2023 8:52 AM RESTAURANT LINE SERVER 5 mg Given 01/14/2023 9:06 AM RESTAURANT LINE SERVER 5 mg Given 01/13/2023 8:41 AM RESTAURANT LINE SERVER 5 mg apixaban (ELIQUIS) tablet 2.5 mg 2.5 mg, oral, Every 12 hours scheduled, First dose (after last modification) on Thu01/15/23 at 2100, Apixaban 5 mg po BID decreased to 2.5 mg PO BID due to increase in Scr. Apixaban 2.5 mg is appropriate for age> 80, wt>60kg, Scr > 1.5 and indication of Afib. 82 y.o. Wt Readings from Last 1 Encounters: 01/15/23 : 90.5 kg (199 lb 8.3 oz), Indications: atrial fibrillationIndications:atrial fibrillation apixaban (ELIQUIS) tablet 5 mg 5 mg, oral, Every 12 hours scheduled, First dose on Thu01/14/23 at 2100, Indications: atrial fibrillationIndications:atrial fibrillation Given 01/15/2023 8:52 AM RESTAURANT LINE SERVER 5 mg Given 01/14/2023 9:24 PM RESTAURANT LINE SERVER 5 mg aspirin chewable tablet 81 mg 81 mg, oral, Daily, First dose on Thu01/10/23 at 1945 Given 01/14/2023 9:05 AM RESTAURANT LINE SERVER 81 mg Given 01/13/2023 8:42 AM RESTAURANT LINE SERVER 81 mg Given 01/12/2023 8:50 AM RESTAURANT LINE SERVER 81 mg atorvastatin (LIPITOR) tablet 10 mg 10 mg, oral, Daily, First dose on Thu01/10/23 at 1945 Given 01/15/2023 8:52 AM RESTAURANT LINE SERVER 10 mg Given 01/14/2023 9:05 AM RESTAURANT LINE SERVER 10 mg Given 01/13/2023 8:41 AM [employer] 10 mg azithromycin (ZITHROMAX) tablet 500 mg 500 mg, oral, Daily, First dose on Thu01/10/23 at 1114, For 3 doses, Indications: Pneumonia, Community AcquiredIndications:Pneumonia, Community Acquired Given 01/12/2023 8:50 AM [employer] 500 mg Given 01/11/2023 8:25 AM [employer] 500 mg Given 01/10/2023 11:45 AM [employer] 500 mg bisacodyl EC (DULCOLAX EC) tablet 10 mg 10 mg, oral, Daily PRN, constipation, If no results 24 hours after milk of magnesia, Starting on Thu01/15/23 at 0342, Do not crush, chew, cut, dissolve, open or otherwise manipulate tablet/capsule. budesonide-formoteroL (SYMBICORT) 160-4.5 mcg/actuation inhaler 2 puff 2 puff, inhalation, 2 times daily (cable respooler), First dose on Thu01/10/23 at 2000, Rinse mouth with water after use. Do not swallow., I /authorizing provider attest that the patient meets the approved [facility] Use Criteria: Yes Given 01/15/2023 8:16 AM [employer] 2 puffs Given 01/14/2023 8:01 AM [employer] 2 puffs Given 01/13/2023 7:37 PM [employer] 2 puffs cefdinir (OMNICEF) capsule 300 mg 300 mg, oral, 2 times daily, First dose on Thu01/13/23 at 1100, For 4 days, Indications: Pneumonia, Community AcquiredIndications:Pneumonia, Community Acquired Given 01/15/2023 8:52 AM [employer] 300 mg Given 01/14/2023 9:24 PM [employer] 300 mg Given 01/14/2023 9:06 AM [employer] 300 mg cefTRIAXone (ROCEPHIN) 1,000 mg/10 mL in sterile water (premix) 1,000 mg 1,000 mg, intravenous, at 600 mL/hr, Administer over 1 Minutes, Every 24 hours scheduled, First dose on Thu01/10/23 at 1114, Indications: Pneumonia, Community AcquiredIndications:Pneumonia, Community Acquired Given 01/13/2023 8:51 AM [employer] 1,000 mg 600 mL/hr Given 01/12/2023 8:50 AM [employer] 1,000 mg 600 mL/hr Given 01/11/2023 8:34 AM [employer] 1,000 mg 600 mL/hr cholecalciferol (VITAMIN D-3) tablet 2,000 Units 2,000 Units, oral, Daily, First dose on Thu01/10/23 at 1945 Given 01/15/2023 8:52 AM [employer] 2,000 Units Given 01/14/2023 9:05 AM [employer] 2,000 Units Given 01/13/2023 8:42 AM [employer] 2,000 Units enoxaparin (LOVENOX) syringe 40 mg 40 mg, subcutaneous, Daily (for enoxaparin), First dose on Thu01/11/23 at 2100, Indications: Deep Vein Thrombosis PreventionIndications:Deep Vein Thrombosis Prevention Given 01/13/2023 9:30 PM [employer] 40 mg Right Upper Abdomen Given 01/12/2023 8:04 PM [employer] 40 mg Ri ght Lower Abdomen Given 01/11/2023 8:15 PM [employer] 40 mg Le ft Upper Abdomen enoxaparin (LOVENOX) syringe 40 mg 40 mg, subcutaneous, Once, On Tu01/13/23 at 2345, For 1 dose, Indications: atrial fibrillationIndications:atrial fibrillation Given 01/13/2023 11:26 PM [employer] 40 mg Right Upper Abdomen furosemide (LASIX) tablet 40 mg 40 mg, oral, Daily, First dose on Thu01/14/23 at 1215 Given 01/15/2023 8:52 AM [employer] 40 mg Given 01/14/2023 12:08 PM [employer] 40 mg hydroCHLOROthiazide (HYDRODIURIL) tablet 12.5 mg 12.5 mg, oral, Daily, First dose on 01/10/23 at 1945 Given 01/14/2023 9:05 AM [employer] 12.5 mg Given 01/13/2023 8:42 AM [employer] 12.5 mg Given 01/12/2023 8:50 AM [employer] 12.5 mg ipratropium-albuteroL (DUO-NEB) 0.5-2.5 mg/3 mL nebulizer solution 3 mL 3 mL, nebulization, Every 6 hours while awake (cable respooler), First dose on 01/10/23 at 1114, Indications: Chronic Obstructive Pulmonary Disease with BronchospasmsIndications:Chronic Obstructive Pulmonary Disease with Bronchospasms Given 01/10/2023 8:32 PM [employer] 3 mL Given 01/10/2023 11:21 AM [employer] 3 mL ipratropium-albuteroL (DUO-NEB) 0.5-2.5 mg/3 mL nebulizer solution 3 mL 3 mL, nebulization, Every 6 hours (cable respooler), First dose (after last modification) on 01/11/23 at 0300, Indications: Chronic Obstructive Pulmonary Disease with BronchospasmsIndications:Chronic Obstructive Pulmonary Disease with Bronchospasms Given 01/11/2023 1:44 PM [employer] 3 mL Given 01/11/2023 8:48 AM [employer] 3 mL Given 01/11/2023 2:03 AM [employer] 3 mL ipratropium-albuteroL (DUO-NEB) 0.5-2.5 mg/3 mL nebulizer solution 3 mL 3 mL, nebulization, Every 6 hours PRN (cable respooler), wheezing, shortness of breath, Starting on Clarence 01/11/23 at 1415, Indications: Chronic Obstructive Pulmonary Disease with BronchospasmsIndications:Chronic Obstructive Pulmonary Disease with Bronchospasms irbesartan (AVAPRO) tablet 150 mg 150 mg, oral, Daily, First dose on [facility] 01/10/23 at 1945 Given 01/15/2023 8:52 AM [employer] 150 mg Given 01/14/2023 9:05 AM [employer] 150 mg Given 01/13/2023 8:41 AM [employer] 150 mg magnesium hydroxide (MILK OF MAGNESIA) 80 mg/mL (33.3 mg/mL as elemental magnesium) oral suspension 30 mL 30 mL, oral, Daily PRN, constipation, Starting on Liv 01/15/23 at 0342 methylPREDNISolone sodium succinate (SOLU-medrol) preservative free injection 125 mg 125 mg, intravenous, Administer over 3 Minutes, Once, On [facility] 01/10/23 at 1024, For 1 dose Given 01/10/2023 10:36 AM [employer] 125 mg methylPREDNISolone sodium succinate (SOLU-medrol) preservative free injection 125 mg 125 mg, intravenous, Administer over 3 Minutes, Every 6 hours scheduled, First dose on [facility] 01/10/23 at 1800 Given 01/10/2023 5:08 PM [employer] 125 mg methylPREDNISolone sodium succinate (SOLU-medrol) preservative free injection 40 mg 40 mg, intravenous, Administer over 3 Minutes, Every 6 hours scheduled, First dose (after last modification) on Clarence 01/11/23 at 0000, Administer 125 mg or less over 3 minutes Given 01/12/2023 5:59 AM [employer] 40 mg Given 01/12/2023 12:28 AM [employer] 40 mg Given 01/11/2023 5:19 PM [employer] 40 mg metoprolol (LOPRESSOR) injection 5 mg 5 mg, intravenous, Administer over 1 Minutes, Once, On Thu01/13/23 at 2330, For 1 dose Given 01/13/2023 10:55 PM [employer] 5 m g metoprolol tartrate (LOPRESSOR) immediate release tablet 25 mg 25 mg, oral, 2 times daily, First dose on Thu01/14/23 at 0045 Given 01/15/2023 8:52 AM [employer] 25 mg Given 01/14/2023 9:24 PM [employer] 25 mg Given 01/14/2023 9:06 AM [employer] 25 mg mineral oil (FLEET MINERAL OIL) enema 133 mL 133 mL (1 enema), rectal, Daily PRN, constipation, if no results 24 hours after bisacodyl, Starting on Thu01/15/23 at 0342, Indications: constipationIndications:constipation montelukast (SINGULAIR) tablet 10 mg 10 mg, oral, Nightly, First dose on Thu01/10/23 at 2100 Given 01/14/2023 9:24 PM [employer] 10 mg Given 01/13/2023 9:29 PM [employer] 10 mg Given 01/11/2023 8:15 PM [employer] 10 mg ondansetron (ZOFRAN) injection 4 mg 4 mg, intravenous, Administer over 2 Minutes, Every 4 hours PRN, nausea, vomiting, Starting on Thu01/15/23 at 0342 predniSONE (DELTASONE) tablet 40 mg 40 mg, oral, Daily, First dose on Thu01/13/23 at 0900 Given 01/15/2023 8:52 AM [employer] 40 mg Given 01/14/2023 9:05 AM [employer] 40 mg Given 01/13/2023 8:41 AM [employer] 40 mg sodium chloride 0.9% flush 0.5-20 mL 0.5-20 mL, intra-catheter, Every 8 hours, First dose on Thu01/15/23 at 0600, Flush volume based on line type and size. sodium chloride 0.9% flush 0.5-20 mL 0.5-20 mL, intra-catheter, As needed, line care, Starting on Thu01/15/23 at 0341, Flush volume based on line type and size. Flush before and after each use. sodium chloride 0.9% infusion 75 mL/hr, intravenous, Continuous, Starting on Thu01/11/23 at 0945 New Bag 01/13/2023 9:32 PM [employer] 75 mL/hr 75 mL/hr New Bag 01/12/2023 8:04 PM [employer] 75 mL/hr 75 mL/hr New Bag 01/11/2023 5:19 PM [employer] 75 mL/hr 75 mL/hr tamsulosin (FLOMAX) extended release capsule 0.4 mg 0.4 mg, oral, Daily with dinner, First dose on 01/10/23 at 1945, Do not crush, chew, cut, dissolve, open or otherwise manipulate tablet/capsule. Given 01/14/2023 5:21 PM [employer] 0.4 mg Given 01/13/2023 4:59 PM [employer] 0.4 mg Given 01/12/2023 5:41 PM [employer] 0.4 mg documented in this encounter Discontinued Medications Medication Sig Discontinue Reason Start Date End Da te aspirin 81 mg chewable tablet chew 1 tablet by oral route every day Stop Taking at Discharge 2015 01/15/2023 simvastatin (ZOCOR) 10 mg tablet Take 1 tablet by mouth daily Stop Taking at Discharge 02/04/2022 01/15/2023 documented as of this encounter Active and Recently Administered Medications Times are shown in [employer]. Scheduled Medication Order 01/13/2023 01/14/2023 01/15/2023 amLODIPine (NORVASC) tablet 5 mg(Linked Group 1) 5 mg, oral, Daily, First dose on 01/10/23 at 1945 0841 (Given - Provider: Bia Prieto RN) 0906 (Given - Provider: Bia Prieto RN) 0852 (Given - Provider: Bia Prieto RN) apixaban (ELIQUIS) tablet 2.5 mg 2.5 mg, oral, Every 12 hours scheduled, First dose (after last modification) on Liv 01/15/23 at 2100, Apixaban 5 mg po BID decreased to 2.5 mg PO BID due to increase in Scr. Apixaban 2.5 mg is appropriate for age> 80, wt>60kg, Scr > 1.5 and indication of Afib. 82 y.o. Wt Readings from Last 1 Encounters: 01/15/23 : 90.5 kg (199 lb 8.3 oz), Indications: atrial fibrillation apixaban (ELIQUIS) tablet 5 mg (CANCELED) 5 mg, oral, Every 12 hours scheduled, First dose on Thu01/14/23 at 2100, Indications: atrial fibrillation 2123 (Given - Provider: Sophia Evangelista RN) 0852 (Given - Provider: Bia Prieto, TAVARES) aspirin chewable tablet 81 mg (CANCELED) 81 mg, oral, Daily, First dose on Thu01/10/23 at 194 0842 (Given - Provider: Bia Prieto RN) 09 (Given - Provider: Bia Prieto, TAVARES) atorvastatin (LIPITOR) tablet 10 mg(Linked Group 1) 10 mg, oral, Daily, First dose on Thu01/10/23 at 194 0841 (Given - Provider: Bia Prieto RN) 09 (Given - Provider: Bia Prieto RN) 0852 (Given - Provider: Bia Prieto RN) budesonide-formoteroL (SYMBICORT) 160-4.5 mcg/actuation inhaler 2 puff 2 puff, inhalation, 2 times daily (cable respooler), First dose on Thu01/10/23 at 1999, Rinse mouth with water after use. Do not swallow., I /authorizing provider attest that the patient meets the approved [facility] Use Criteria: Yes 0849 (Given - Provider: Bia Bryan RRT)1936 (Given - Provider: Mirtha Adams RRT) 08 (Given - Provider: Justin Edwrads RRT)1999 (Due) 0816 (Given - Provider: Justin Edwards RRT) cefdinir (OMNICEF) capsule 300 mg 300 mg, oral, 2 times daily, First dose on Thu01/13/23 at 1100, For 4 days, Indications: Pneumonia, Community Acquired 1129 (Given - Provider: Bia Prieto RN)2128 (Given - Provider: Sophia Evangelista, TAVARES) 905 (Given - Provider: Bia Prieto RN)2123 (Given - Provider: Sophia Evangelista, TAVARES) 0852 (Given - Provider: Bia Prieto RN) cefTRIAXone (ROCEPHIN) 1,000 mg/10 mL in sterile water (premix) 1,000 mg (CANCELED) 1,000 mg, intravenous, at 600 mL/hr, Administer over 1 Minutes, Every 24 hours scheduled, First dose on Thu01/10/23 at 1114, Indications: Pneumonia, Community Acquired 0851 (Given - Provider: Bia Prieto RN) cholecalciferol (VITAMIN D-3) tablet 2,000 Units 2,000 Units, oral, Daily, First dose on Thu01/10/23 at 1945 0842 (Given - Provider: Bia Prieto RN) 0905 (Given - Provider: Bia Prieto RN) 0852 (Given - Provider: Bia Prieto RN) enoxaparin (LOVENOX) syringe 40 mg (CANCELED) 40 mg, subcutaneous, Daily (for enoxaparin), First dose on Thu01/11/23 at 2100, Indications: Deep Vein Thrombosis Prevention 2130 (Given - Provider: Sophia Evangelista, TAVARES) enoxaparin (LOVENOX) syringe 40 mg (COMPLETED) 40 mg, subcutaneous, Once, On Thu01/13/23 at 2345, For 1 dose, Indications: atrial fibrillation 2326 (Given - Provider: Sophia Evangelista, TAVARES) furosemide (LASIX) tablet 40 mg 40 mg, oral, Daily, First dose on Thu01/14/23 at 1215 1208 (Given - Provider: Bia Prieto RN) 0852 (Given - Provider: Bia Prieto RN) hydroCHLOROthiazide (HYDRODIURIL) tablet 12.5 mg (CANCELED)(Linked Group 2) 12.5 mg, oral, Daily, First dose on Thu01/10/23 at 1945 0842 (Given - Provider: Bia Prieto RN) 0905 (Given - Provider: Bia Prieto, TAVARES) irbesartan (AVAPRO) tablet 150 mg(Linked Group 2) 150 mg, oral, Daily, First dose on Thu01/10/23 at 1945 0841 (Given - Provider: Bia Prieto RN) 0905 (Given - Provider: Bia Prieto RN) 0852 (Given - Provider: Bia Prieto RN) metoprolol (LOPRESSOR) injection 5 mg (COMPLETED) 5 mg, intravenous, Administer over 1 Minutes, Once, On Thu01/13/23 at 2330, For 1 dose 2255 (Given - Provider: Sophia Evangelista, TAVARES) metoprolol tartrate (LOPRESSOR) immediate release tablet 25 mg 25 mg, oral, 2 times daily, First dose on Thu01/14/23 at 0045 0053 (Given - Provider: Sophia Evangelista, TAVARES)09 (Given - Provider: Bia Prieto RN)2123 (Given - Provider: Sophia Evangelista, TAVARES) 0852 (Given - Provider: Bia Prieto, TAVARES) montelukast (SINGULAIR) tablet 10 mg 10 mg, oral, Nightly, First dose on Thu01/10/23 at 2100 2129 (Given - Provider: Sophia Evangelista, TAVARES) 2123 (Given - Provider: Sophia Evangelista, TAVARES) nicotine (NICODERM CQ) 21 mg patch 24 hour 1 patch 1 patch, transdermal, Administer over 24 Hours, Daily, First dose on Thu01/10/23 at 1645, Apply a new patch every 24 hours to a clean, dry, hairless site on the upper arm or hip. Rotate site. 0851 (Not Given - Provider: Bia Prieto RN - Reason: Patient/family refused) 0927 (Not Given - Provider: Bia Prieto RN - Reason: Patient/family refused) 0853 (Not Given - Provider: Bia Prieto RN - Reason: Patient/family refused) predniSONE (DELTASONE) tablet 40 mg 40 mg, oral, Daily, First dose on Thu01/13/23 at 0900 0841 (Given - Provider: Bia Prieto RN) 0905 (Given - Provider: Bia Prieto RN) 0852 (Given - Provider: Bia Prieto RN) sodium chloride 0.9% flush 0.5-20 mL 0.5-20 mL, intra-catheter, Every 8 hours, First dose on Thu01/15/23 at 0600, Flush volume based on line type and size. 0530 (Not Given - Provider: Sophia Evangelista RN - Reason: Other - Comment: clinical decision pt sleeping) tamsulosin (FLOMAX) extended release capsule 0.4 mg 0.4 mg, oral, Daily with dinner, First dose on [facility] 01/10/23 at 1945, Do not crush, chew, cut, dissolve, open or otherwise manipulate tablet/capsule. 1659 (Given - Provider: Bia Prieto RN) 1721 (Given - Provider: Bia Prieto RN) Continuous Medication Order 01/13/2023 01/14/2023 01/15/2023 sodium chloride 0.9% infusion (CANCELED) 75 mL/hr, intravenous, Continuous, Starting on Clarence 01/11/23 at 0945 2132 (New Bag - Provider: Sophia Evangelista RN) 0924 (Stopped - Provider: Bia Prieto RN) PRN Medication Order 01/13/2023 01/14/2023 01/15/2023 bisacodyl EC (DULCOLAX EC) tablet 10 mg 10 mg, oral, Daily PRN, constipation, If no results 24 hours after milk of magnesia, Starting on Liv 01/15/23 at 0342, Do not crush, chew, cut, dissolve, open or otherwise manipulate tablet/capsule. ipratropium-albuteroL (DUO-NEB) 0.5-2.5 mg/3 mL nebulizer solution 3 mL 3 mL, nebulization, Every 6 hours PRN (cable respooler), wheezing, shortness of breath, Starting on Clarence 01/11/23 at 1415, Indications: Chronic Obstructive Pulmonary Disease with Bronchospasms magnesium hydroxide (MILK OF MAGNESIA) 80 mg/mL (33.3 mg/mL as elemental magnesium) oral suspension 30 mL 30 mL, oral, Daily PRN, constipation, Starting on Liv 01/15/23 at 0342 mineral oil (FLEET MINERAL OIL) enema 133 mL 133 mL (1 enema), rectal, Daily PRN, constipation, if no results 24 hours after bisacodyl, Starting on Liv 01/15/23 at 0342, Indications: constipation ondansetron (ZOFRAN) injection 4 mg 4 mg, intravenous, Administer over 2 Minutes, Every 4 hours PRN, nausea, vomiting, Starting on Liv 01/15/23 at 0342 sodium chloride 0.9% flush 0.5-20 mL 0.5-20 mL, intra-catheter, As needed, line care, Starting on Liv 01/15/23 at 0341, Flush volume based on line type and size. Flush before and after each use. traMADoL (ULTRAM) tablet 25 mg 25 mg, oral, Every 6 hours PRN, 2nd line for pain, Starting on 01/10/23 at 1904 Linked Groups Order Group 1: amLODIPine (NORVASC) tablet 5 mgJump to med 5 mg, oral, Daily, First dose on 01/10/23 at 1945 And atorvastatin (LIPITOR) tablet 10 mgJump to med 10 mg, oral, Daily, First dose on 01/10/23 at 1945 Group 2: irbesartan (AVAPRO) tablet 150 mgJump to med 150 mg, oral, Daily, First dose on 01/10/23 at 1945 And hydroCHLOROthiazide (HYDRODIURIL) tablet 12.5 mg (CANCELED)Jump to med 12.5 mg, oral, Daily, First dose on 01/10/23 at 1945 documented in this encounter Orders Medications Ordered That Clint ht Not Have Been Administered Count Last Ordered Date First Ordered Date apixaban (ELIQUIS) tablet 2.5 mg 1 01/16/20 bisacodyl EC (DULCOLAX EC) tablet 10 mg 1 0 01/15/2023 magnesium hydroxide (MILK OF MAGNESIA) 80 mg/mL (33.3 mg/mL as elemental magnesium) oral suspension 30 mL 1 01/15/2023 mineral oil (FLEET MINERAL O IL) enema 133 mL 1 01/15/2023 ondansetron (ZOFRAN) injection 4 mg 1 01/15 sodium chloride 0.9% flush 0.5-20 mL 2 07/2023 enoxaparin (LOVENOX) syringe 80 mg 1 2022 ipratropium-albuteroL (DUO-N EB) 0.5-2.5 mg/3 mL nebulizer solution 3 mL 1 01/11/2023 amlodipine-atorvastatin (CAD UET) 5-10 mg per tablet 1 tablet 1 01/10/2023 irbesartan-hydrochlorothiazi de (AVALIDE) 150-12.5 mg per tablet 1 tablet 1 01/10/2023 nicotine (NICODERM CQ) 21 mg patch 24 hour 1 patch 1 01/10/2023 traMADoL (ULTRAM) tablet 25 mg 1 01/10/2023 Nursing Count Last Ordered Date First Orde red Date DISCHARGE CALL PROVIDER 8 01/15/2023 DISCHARGE INSTRUCTIONS 1 01/15/2023 BLADDER SCAN 1 01/12/2023 PULSE OXIMETRY - RN 1 01/10/2023 TELEMETRY MONITORING 1 01/10/2023 Consult Count Last Ordered Date First Orde red Date IP CONSULT TO CARDIOLOGY 1 01/14/2023 IP CONSULT TO INFECTIOUS DISEASES 1 023 IP CONSULT TO NEPHROLOGY 1 01/12/2023 Admission Count Last Ordered Date First Orde red Date ADMIT TO INPATIENT 1 01/12/2023 INITIATE OBSERVATION SERVICES 1 01/10/2023 Discharge Count Last Ordered Date First Orde red Date DISCHARGE PATIENT 1 01/15/2023 documented in this encounter Additional Health Concerns Infection Onset Date Last Indicated Resolved Time COVID: Suspected 01/10/2023 01/10/2023 01/10/2023 1:18 PM [employer]UR[employer] documented as of this encounter Care Teams Marine Diver Relationship Specialty Start Date End Date Cassius London MD [address] [place] [address] PCP - General 02/06/17 documented as of this encounter
--- OUTSIDE RECORDS SUMMARY | 2024-10-26 01:17 | XMS_ITS | Encounter Summary ---
Author Organization [facility] Address [address] [place] [address] Care Team Providers Care Supervisor Reactor Fueling Name Role Phone Cassius London MD Primary Care Provider + Encounter Details Date Type Department Care Team (Late st Contact Info) Description 06/17/2022 Telephone [facility] [address] [place] [address] Preston Gambino, RN Social History Tobacco Use Types Packs/Day Years Used Date Smoking Tobacco: Former Cigarettes Q uit: 2011 Smokeless Tobacco: Never Alcohol Use Standard Drinks/Week Comments No 0 (1 standard drink = 0.6 oz pur e alcohol) AUDIT-C Answer Date Recorded Q1: How often do you have a drink containing alc ohol? 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 She states it was paid out on 05/02/22 and case was closed. Billed amount $57279.41 Paid amount $5031.27 Patient paid $245 Dispute ID = [id number] Call Ref # [id number] documented in this encounter Plan of Treatment Not on file documented as of this encounter Visit Diagnoses Not on filedocumented in this encounter Care Teams Supervisor Reactor Fueling Relationship Specialty Start Date End Date Cassius London MD [address] [place] [address] PCP - General 02/06/17 documented as of this encounter
--- OUTSIDE RECORDS SUMMARY | 2024-10-26 01:17 | XMS_ITS | Encounter Summary ---
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 Procedures Exc Lesion Face/Ears/Eyelids/Nose/Lip s & Potential Closure Patricia Donato MD [address] [facility] [id number] [place] [address] Phone: tel: fax: [facility] (All Locations) Referral ID Status Reason Start Date Expiration Date Visits Re quested Visits Authorized [id number] Closed 12/06/2020 12/01/2021 10 10 Encounter Details Date Type Department Care Team (Late st Contact Info) Description 08/29/2021 Orders Only [facility] [address] [place] [address] [address] [place] [id number] Patricia Donato MD [address] [facility] [id number] [place] [address] 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 (Primary Dx) Social History Tobacco Use Types Packs/Day Years Used Date Smoking Tobacco: Former Cigarettes Q uit: 2012 Smokeless Tobacco: Never Alcohol Use Standard Drinks/Week Comments No 0 (1 standard drink = 0.6 oz pur e alcohol) Sex and Gender Information Value Date Recorded Sex Assigned at Not on file 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 Gender Identity Not on file Sexual Orientation Not on file documented as of this encounter Plan of Treatment Scheduled Orders Name Type Priority Associated Diagnoses Orde r Schedule Exc Lesion Face/Ears/Eyelids/Nos e/Lips & Potential Closure Procedures Routine 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 1 Occurrences starting 08/29/2021 until 08/29/2022 documented as of this encounter Visit Diagnoses Diagnosis 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- Primary documented in this encounter Care Teams Workplace Trainer And Assessor Relationship Specialty Start Date End Date Cassius London MD [address] [place] [address] PCP - General 02/06/17 documented as of this encounter
--- OUTSIDE RECORDS SUMMARY | 2024-10-26 01:17 | XMS_ITS | Encounter Summary ---
Author Organization Formerly [facility] Address [address] [place] [address] Care Team Providers Care Genetic Supervisor Name Role Phone Cassius London MD Primary Care Provider + Reason for Referral * MRI/CAT/PET Scan (Routine) - Closed Specialty Diagnoses / Procedures Referred By Contac t Referred To Contact Radiology Diagnoses Pain in right shoulder Procedures MRI Shoulder Right WO Contrast Lara Cotter NP [address] [place] [address] Phone: tel: fax: [address] [phone] Referral ID Status Reason Start Date Expiration Date Visits Re quested Visits Authorized [id number] Closed 12/31/2022 01/30/2024 1 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 for Visit * MRI/CAT/PET Scan (Routine) - Closed Specialty Diagnoses / Procedures Referred By Contac t Referred To Contact Radiology Diagnoses Pain in right shoulder Procedures MRI Shoulder Right WO Contrast Lara Cotter NP [address] [place] [address] Phone: tel: fax: [address] [phone] Referral ID Status Reason Start Date Expiration Date Visits Re quested Visits Authorized [id number] Closed 12/31/2022 01/30/2024 1 1 Encounter Details Date Type Department Care Team (Latest Contact Info) Description 01/08/2023 9:41 AM 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 - 01/08/2023 11:59 PM 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 Hospital Encounter [facility] [address] [place] [address] Pain in right shoulder Discharge Disposition: Discharge to home or self [...] on file Legal 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 30 tablet 07/29/2017 3 fluticasone propionate (FLONASE) 50 mcg/actuation nasal spray Administer 50 sprays into each nostril 2 (two) times a day as needed 02/05/2022 4 irbesartan-hydro chlorothiazide (AVALIDE) 150-12.5 mg per tablet 07/16/2021 3 meclizine (ANTIVERT) 12.5 mg tablet Take 1 tablet (12.5 mg total) by mouth 3 (three) times a day as needed for dizziness 30 tablet 01/18/2022 4 ondansetron (ZOFRAN) 4 mg tablet Take 1 tablet (4 mg total) by mouth every 6 (six) hours 12 tablet 01/18/2022 4 simvastatin (ZOCOR) 10 mg tablet Take 1 tablet by mouth daily 02/04/2022 3 tamsulosin (FLOMAX) 0.4 mg capsule,extended release 24hr [...] Name Priority Date/Time Associated Diagnosis Comments MRI SHOULDER RIGHT WO CONTRAST Schedule Routine, Read Routine (OP Routine) 01/08/2023 10:42 AM 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 Pain in right shoulder documented in this encounter Results * MRI Shoulder Right WO Contrast (01/08/2023 10:42 AM 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) Anatomical Region Laterality Modality Upper Extremities Right Magnetic Reson ance 01/08/2023 1:54 PM 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 Narrative 01/08/2023 2:02 PM 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 EXAM DESCRIPTION: ?? MRI SHOULDER RIGHT WO CONTRAST REASON FOR STUDY: Pain in right shoulder ?? 5 weeks ago pt injured RT shoulder while playing with great grandson. Pain upper humerus and anterior aspect of joint. Sharp stabbing pain when driving. Loss in ROM. Difficulty lifting RT arm up. ? Pt has COPD, difficulty holding still due to coughing. Tried to repeat for motion. ? TECHNIQUE: Multiplanar, multisequence MRI of the ??right ??shoulder was performed. COMPARISON: None available FINDINGS: Motion artifact compromises evaluation. ?? Bones and Joint: ??There is moderate to severe acromioclavicular osteophyte with inferiorly projecting osteophytes. ??Type ??2 acromion. ??No acute fracture. No effusion. ??Mild glenohumeral osteoarthritis. ?? Rotator Cuff: ??Supraspinatus, anterior infraspinatus and superior subscapularis tendinosis. ??There is at least high-grade partial-thickness bursal surface tear of the anterior distal supraspinatus tendon at the footprint measuring 16 x 15 mm, although small full-thickness component is possible. ??Small partial-thickness articular surface subscapularis tendon tear. ?? Biceps Tendon: The long head of the biceps tendon is located in the bicipital groove and appears intact. ??There is tendinosis of the intra-articular portion of the tendon. Labrum: Inadequately evaluated without intraarticular contrast administration. Given this limitation, there is abnormal signal in the superior glenoid labrum as evidence of labral tear. Bursa: Subacromial-subdeltoid bursitis. Other: The suprascapular notch and quadrilateral space appear normal. Normal rotator cuff musculature volume. IMPRESSION: 1. ?? High-grade partial-thickness bursal surface tear of a tendinopathic supraspinatus tendon. ??Possible full-thickness component. 2. ?? Infraspinatus and subscapularis tendinosis. 3. ?? Subacromial-subdeltoid bursitis. 4. ?? Evidence of glenoid labral tear. THIS IS AN ELECTRONICALLY VERIFIED FINAL REPORT 01/08/2023 2:02 PM - Electronically signed by ??Sam Salazar M.D. JR: D: ??01/08/2023 2:02 PM T: ??01/08/2023 2:02 PM Report ID: [id number] Reading Location: ??[id number] Procedure Note Sam Salazar MD - 01/08/2023 EXAM DESCRIPTION: MRI SHOULDER RIGHT WO CONTRAST REASON FOR STUDY: Pain in right shoulder 5 weeks ago pt injured RT shoulder while playing with great grandson. Pain upper humerus and anterior aspect of joint. Sharp stabbing pain whendriving. Loss in ROM. Difficulty lifting RT arm up. Pt has COPD, difficultyholding still due to coughing. Tried to repeat for motion. TECHNIQUE: Multiplanar, multisequence MRI of the right shoulder was performed. COMPARISON: None available FINDINGS: Motion artifact compromises evaluation. Bones and Joint: There is moderate to severe acromioclavicular osteophyte with inferiorly projecting osteophytes. Type 2 acromion. No acutefracture. No effusion. Mild glenohumeral osteoarthritis. Rotator Cuff: Supraspinatus, anterior infraspinatus and superior subscapularis tendinosis. There is at least high-grade partial-thickness bursal surface tear of the anterior distal supraspinatus tendon at the footprint measuring 16 x 15 mm, although small full-thickness component is possible. Small partial-thickness articular surface subscapularis tendon tear. Biceps Tendon: The long head of the biceps tendon is located in thebicipital groove and appears intact. There is tendinosis of the intra-articularportion of the tendon. Labrum: Inadequately evaluated without intraarticular contrastadministration. Given this limitation, there is abnormal signal in the superior glenoidlabrum as evidence of labral tear. Bursa: Subacromial-subdeltoid bursitis. Other: The suprascapular notch and quadrilateral space appear normal.Normal rotator cuff musculature volume. IMPRESSION: 1. High-grade partial-thickness bursal surface tear of a tendinopathic supraspinatus tendon. Possible full-thickness component. 2. Infraspinatus and subscapularis tendinosis. 3. Subacromial-subdeltoid bursitis. 4. Evidence of glenoid labral tear. THIS IS AN ELECTRONICALLY VERIFIED FINAL REPORT 01/08/2023 2:02 PM - Electronically signed by Sam Salazar M.D. JR: Report ID: [id number] Reading Location: [id number] Lara Cotter CYBER SECURITY MANAGER IMG MRI PROCEDURES Final R esult documented in this encounter Visit Diagnoses Diagnosis Pain in right shoulder documented in this encounter Care Teams Genetic Supervisor Relationship Specialty Start Date End Date Cassius London MD [address] [place] [address] PCP - General 02/06/17 documented as of this encounter
--- OUTSIDE RECORDS SUMMARY | 2024-10-26 01:17 | XMS_ITS | Encounter Summary ---
Author Organization [facility] Address [address] [place] [address] Care Team Providers Care Food Service Team Member Name Role Phone Cassius London MD Primary Care Provider + Encounter Details Date Type Department Care Team (Late st Contact Info) Description 06/17/2021 7:55 AM CDT Lab [address] [phone] Social History Tobacco Use Types Packs/Day Years Used Date Smoking Tobacco: Former Cigarettes Q uit: 2012 Smokeless Tobacco: Never Alcohol Use Standard Drinks/Week Comments No 0 (1 standard drink = 0.6 oz pur e alcohol) Sex and Gender Information Value Date Recorded Sex Assigned at Not on file 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
--- OUTSIDE RECORDS SUMMARY | 2024-10-26 01:17 | XMS_ITS | Encounter Summary ---
Author Organization [facility] Address [address] [place] [address] Care Team Providers Care Engraving Operator Name Role Phone Cassius London MD Primary Care Provider + Encounter Details Date Type Department Care Team (Late st Contact Info) Description 01/24/2022 8:00 AM CDT Anesthesia Event [facility] Operating Room [address] [place] [address] [place] [id number] [address] [place] [address] [facility] [place] [address] Anesthesia Record Procedure Summary Procedure Name Responsible Anesthesiologist Anesthesia Start Time Anesthesia Stop Time REPAIR INGUINAL HERNIA - LAPAROSCOPIC ROBOTIC ASSISTED, LEFT (Left: Abdomen) Eliud Sandy MD 01/24/22 0800 01/24/22 1003 Events Date Time Event Comment 01/24/2022 0725 0800 An Start 0800 An Start Data 0800 In Room 0805 An Induction The patient was reevaluated immediately before moderate or deep sedation use and before anesthesia induction. 0809 An Intubation 0809 Anesthesia Ready 0818 Proc Start 0820 Incision Start 0935 Proc Fin 0954 An Extubation 0954 Out of Room 0955 an stop data 1003 Handoff to RN I completed my handoff [...] disposition at the time of handoff: PACU 1003 An Stop Meds Name Total ceFAZolin (ANCEF) 1 gram/10 mL in steril e water (premix) 2,000 mg 2,000 mg dexamethasone 10 mg/mL 8 mg propofol 160 mg fentaNYL 50 mcg rocuronium 70 mg lidocaine 2 % PF 100 mg ondansetron 4 mg esmolol 40 mg phenylephrine 600 mcg phenylephrine (JUVE-SYNEPHRIN E) 25,000 mcg in sodium chloride 0.9% 250 mL (100 mcg/mL) infusion 1.69 mg neostigmine 1 mg/mL 5 mg glycopyrrolate 0.8 mg EPINEPHrine 1:200,000-bupivacaine 0.25 % 30 mL Lactated Ringer's (LR) infusion 1,000 mL * Agents Name O2 Air Sevoflurane Inspired Sevoflurane * Blood No blood administrations on file. Lines, Drains, and Airways Type Details Placement Removal Peripheral IV Placement Date: 01/24/22; Placement Time: 07; Catheter Size: 22 G; Orientation: Left, Posterior; Location: Hand; Removal Date: 01/24/22; Removal Time: 1448 01/24/22 0708 by Abdi Puri RN 01/24/22 1448 by Abdi Puri RN ETT Placement Date: 01/24/22; Placement Time: 0809 (created via procedure documentation); Mask Ventilation: 2; Technique: Direct laryngoscopy; Type: ETT - single; Single Lumen Tube Size: 7.5 mm; Cuffed: Yes; Laryngoscope: Sandro; Blade Size: 4; Location: Oral; Grade View: Grade IIa; Insertion Attempts: 1; Placement Verification: Auscultation, Capnometry; Airway Comment: Direct laryngoscopy and atraumatic intubation performed by ENZO Winkler under the direct supervision of LATASHA. Lips and oral mucosa in preop condition after intubation.; Removal Date: 01/24/22; Removal Time: 0954 01/24/22 0809 by Braydon Henriquez CRNA 01/24/22 0954 by Braydon Henriquez CRNA RETIRED Surgical Site 01/24/22; 0839; Le ft; Abdomen; 01/12/23; 05; Not present on admission 01/24/22 0839 by Julia New RN 01/12/23 05 by Lyndsay Richardson RN documented in this encounter Social History [...] on file Legal Sex Male 1:17 PM THERAPIST Gender Identity Not on file Sexual Orientation Not on file documented as of this encounter OR Notes * Anesthesia Postprocedure Evaluation - Eliud Sandy MD - 01/24/2022 2:12 PM CDT Patient: Xavier Clarke Procedure Summary Date: 01/24/22 Room / Location: [facility] OR [address] [place] [address] OPERATING ROOM Anesthesia Start: 0800 Anesthesia Stop: 1003 Procedure: REPAIR INGUINAL HERNIA - LAPAROSCOPIC ROBOTIC ASSISTED, LEFT (Left Abdomen) Diagnosis: Left inguinal hernia (Left inguinal hernia [K40.90]) Providers: Willie Brown MD Responsible Provider: Eliud Sandy MD Anesthesia Type: general ASA Status: 2 Anesthesia Type: general Last vitals BP 116/81 Pulse 87 Temp 36.4 ??C (97.6 ??F) (Temporal) Resp 20 SpO2 96% Anesthesia Post Evaluation Patient location during evaluation: PACU Patient participation: complete - patient participated Level of consciousness: fully awake Pain management: satisfactory to patient Airway patency: adequate Cardiovascular status: acceptable Respiratory status: acceptable Hydration status: acceptable Pt is: normothermic Nausea/Vomiting status: none No complications documented. * Anesthesia Procedure Notes - Eliud Sandy MD - 01/24/2022 12:34 PM CDTAssociated Order(s): Peripheral Block Peripheral Block Patient location during procedure: block room Start time: 01/24/2022 12:00 PM End time: 01/24/2022 12:20 PM Reason for block: post-op pain management per surgeon request Ultrasound image in chart or stored: yes Block type: single shot Laterality: left Block type: TAP nerve block - classical (posterior) Staff: Placed by: Anesthesiologist: Eliud Sandy MD Procedure prep: Preprocedure checklist: patient identified, procedure contraindications assessed, site marked, procedure consent, surgical consent, IV checked, risks, benefits and alternatives discussed, monitors and equipment checked and timeout performed Patient position: supine Procedure performed while patient: awake Monitoring: ECG, oximetry, blood pressure and capnography Supplemental O2: nasal cannula Prep solution: chlorhexidine/alcohol PPE: provider hat/mask and sterile gloves Skin infiltrated with lidocaine 1%: yes Peripheral nerve block: Technique: ultrasound guided Needle type: insulated, pencil-tipped and echogenic Needle gauge: 21 G Needle length: 120 mm Injection assessment: injection made incrementally with constant monitoring, local visualized surrounding nerve on ultrasound, negative aspiration for heme, no paresthesias noted and normal resistance to injection Assessment: Block success: full evaluation pending Events: patient tolerated procedure well with no complications * Anesthesia Procedure Notes - Braydon Henriquez CRNA - 01/24/2022 8:47 AM CDT Associated Order(s): Airway Airway Patient location: OR Urgency: elective Date/time: 01/24/2022 8:09 AM Indications for airway management: anesthesia Difficult airway: no Staff: Placed by: RADAR AIR TRAFFIC CONTROLLER: Braydon Henriquez CRNA Emergent airway documentation: Risks and benefits discussed: yes Consent obtained: yes Consent given by: patient Airway prep: Preoxygenated: yes Patient position: sniffing Mask difficulty assessment: 2 - vent by mask + OA or adjuvant Spontaneous ventilation during airway: absent Sedation level during airway: GA Final airway details: Final airway type: endotracheal airway Tube type: ETT ETT size: 7.5 mm Cuffed: yes Technique used for successful ETT placement: direct laryngoscopy Devices/Methods used in placement: stylet Insertion site: oral Blade type: Sanrdo Blade size: 4 Cormack-Lehane (direct): grade IIa - partial view of glottis Cuff volume: 7 mL Cuff inflated with: air ETT to gums: 23 cm Placement verified by: auscultation and CO2 detection Airway secured with: silk tape Number of attempts: 1 Additional comments: Direct laryngoscopy and atraumatic intubation performed by ENZO Winkler under the direct supervision of LATASHA. Lips and oral mucosa in preop condition after intubation. * Anesthesia Preprocedure Evaluation - Eliud Sandy MD - 01/24/2022 7:06 AM CDT Images from the original note were not included. Anesthesia Evaluation Xavier Clarke is a 81 y.o. male Procedure(s): XI REPAIR INGUINAL HERNIA - LAPAROSCOPIC ROBOTIC ASSISTED, LEFT (S,C,B conf 3/10 MG) Pre-Op Diagnosis Codes: * Left inguinal hernia [K40.90] HISTORY Past Medical History Information obtained from: patient and chart. Neurological Neuro/Psych system: negative Cardiovascular + Hypertension + Hyperlipidemia Respiratory + COPD Dyspnea frequency: never. Rescue inhaler use: never. Hepatic / Heme Hepatic/Heme system: negative Gastrointestinal GI system: negative Renal / Renal/ system: negative Musculoskeletal/Pain Musculoskeletal/Pain system: negative Endocrine / Other + Cancer history- in remission. Cancer type: prostate. Functional Capacity Functional capacity: 4-6 METs Patient Active Problem List Diagnosis ??? Hyperlipidemia ??? Hypersomnia ??? Vitamin D deficiency ??? Chronic obstructive pulmonary disease with acute exacerbation (CMS/HCC) (HCC) ??? Elevated prostate specific antigen (PSA) ??? Benign hypertension ??? Healthcare maintenance ??? Medication management ??? Diastasis of rectus abdominis ??? Umbilical hernia without obstruction and without gangrene ??? Former smoker, stopped smoking many years ago ??? Sebaceous cyst ??? Basal cell carcinoma of lower leg, right ??? Diarrhea ??? Personal history of colonic polyps ??? Squamous cell carcinoma in situ (SCCIS) ??? Inguinal hernia without obstruction or gangrene Past Medical History: Diagnosis Date ??? Asbestosis [...] Inhibitors Cough Reaction: Cough, ??? Acetaminophen Unknown ? ? Vicodin [Hydrocodone-Acetaminophen] Nausea & Vomiting Med List Status: Nurse Complete Set By: Leatha Holloway RN at 01/21/2022 9:56 AM Taking? Last Dose Start Date End Date Provider albuterol HFA (PROAIR HFA) 90 mcg/actuation inhaler Past Week 09/25/15 -- Cassius London MD inhale 2 puff by inhalation route every 4 - 6 hours as needed aspirin 81 mg chewable tablet Past Week [...] tablet (5,000 Units total) by mouth daily. irbesartan-hydrochlorothiazide (AVALIDE) 150-12.5 mg per tablet 01/24/2022 07/16/21 -- Shilo Bertrand MD meclizine (ANTIVERT) 12.5 mg tablet Past Month 01/18/22 -- Luis E Chin MD Take 1 tablet (12.5 mg total) by mouth 3 (three) times a day as needed for dizziness montelukast (SINGULAIR) 10 mg tablet 09/09/21 -- Shilo Bertrand MD wzogflob-qqk-hmnff-vit K-lycop (ONE-A-DAY MEN'S MULTIVITAMIN) 400-20-300 mcg tablet Past Week 08/23/08 -- Jamar Juan PA Take one by mouth one time per day ondansetron (ZOFRAN) 4 mg tablet 01/18/22 -- Luis E Chin MD Take 1 tablet (4 mg total) by mouth every 6 (six) hours simvastatin (ZOCOR) 40 mg tablet 01/24/2022 08/28/08 -- Cassius London MD TAKE ONE TABLET BY MOUTH ONCE DAILY IN THE EVENING tamsulosin (FLOMAX) 0.4 mg capsule,extended release 24hr Past Month 08/06/16 -- Cassius London MD take 1 capsule by oral route every day 1/2 hour following the same meal each day Trelegy Ellipta 100-62.5-25 mcg inhaler 01/24/2022 08/28/21 -- Shilo Bertrand MD Current Facility-Administered Medications: ??? ceFAZolin (ANCEF) 1 gram/10 mL in sterile water (premix) 2,000 mg, 2,000 mg, intravenous, Once ??? Lactated Ringer's (LR) infusion, 30 mL/hr, intravenous, Continuous ??? sodium chloride 0.9% flush 0.5-20 mL, 0.5-20 mL, intra-catheter, PRN Social History Tobacco Use Smoking Status Former Smoker ??? Quit date: 2011 ??? Years since quittin.2 Smokeless Tobacco Never Used Substance and Sexual [...] Sister Cancer, lung; ??? Brain cancer Sister Vitals: 01/24/22 0629 BP: 128/60 Pulse: 98 Resp: 16 Temp: (!) 35.8 ??C (96.4 ??F) SpO2: 91% PT: No results found for requested labs within last 720 hours. INR: No results found for requested labs within last 720 hours. APTT: No results found for requested labs within last 720 hours. Hgb A1C: No results found for requested labs within last 720 hours. CBC RBC: 01/18/2022: 4.67 M/cumm RDW: No results found for requested labs within last 720 hours. MCHC: 01/18/2022: 34.1 g/dL MCH: 01/18/2022: 32.1 pg MCV: 01/18/2022: 94.2 fL Hct: 01/18/2022: 44.0 % Hgb: 01/18/2022: 15.0 g/dL WBC: 01/18/2022: 9.9 K/cumm MPV: 01/18/2022: 9.4 fL Platelets: 01/18/2022: 258 K/cumm RDW CV: 01/18/2022: 13.0 % RDW Sd: 01/18/2022: 44.8 fL BMP Glucose: 01/18/2022: 113 mg/dL Calcium: 01/18/2022: 9.4 mg/dL Sodium: 01/18/2022: 136 mmol/L Potassium: 01/18/2022: 4.0 mmol/L CO2: 01/18/2022: 29 mmol/L Chloride: 01/18/2022: 97 mmol/L BUN: 01/18/2022: 25 mg/dL Creatinine: 01/18/2022: 1.19 mg/dL EKG 01/18/22: SINUS RHYTHM with PVCs NORMAL ECG STOP-Bang Total Score: 3 DOS Physical Exam Medical history, medications, and allergies reviewed. Attestation: I endorse the findings of the anesthesia pre-evaluation assessment dated: 01/24/2022. Airway Exam: Mallampati: II Cervical ROM: FROM TM distance: normal Cardiovascular Exam: Rate: regular Rhythm: regular Pulmonary Exam: LCTA, bilat EENT Exam: trachea midline Dental Exam: Upper dentures, lower dentures and edentulous Skin Exam: Skin is warm. Current state: Patient's current state is cooperative and interactive. Anesthesia Plan ASA 2 Planned anesthesia: General, regional for postop pain per surgeon request and PNB - single shot Team communication plan: oral ET tube Truncal: TAP nerve block - classical (posterior) Induction: Induction: intravenous. Postoperative Plan: Postoperative administration opioids intended. No postoperative mechanical ventilation intended. Patient's planned disposition post procedure is Outpatient. Informed Consent: Discussed plan with RADAR AIR TRAFFIC CONTROLLER and attending. Anesthesia plan and risks discussed [...] Procedure Name Priority Date/Time Associated Diagnosis Comments ANESTHESIA PERIPHERAL BLOCK Routine 01/24/2022 12:00 PM CDT HI AN ELECTIVE ENDOTRACHEAL AIRWAY Routine 01/24/2022 8:09 AM CDT documented in this encounter Results * Peripheral Block (01/24/2022 12:00 PM CDT) Narrative Eliud Sandy MD - 01/24/2022 12:00 PM CDT Eliud Sandy MD ? 01/24/2022 12:35 PM Peripheral Block Patient location during procedure: block room Start time: 01/24/2022 12:00 PM End time: 01/24/2022 12:20 PM Reason for block: post-op pain management per surgeon request Ultrasound image in chart or stored: yes Block type: single shot Laterality: left Block type: TAP nerve block - classical (posterior) Staff: Placed by: Anesthesiologist: Eliud Sandy MD Procedure prep: Preprocedure checklist: patient identified, procedure contraindications assessed, site marked, procedure consent, surgical consent, IV checked, risks, benefits and alternatives discussed, monitors and equipment checked and timeout performed Patient position: supine Procedure performed while patient: awake Monitoring: ECG, oximetry, blood pressure and capnography Supplemental O2: nasal cannula Prep solution: chlorhexidine/alcohol PPE: provider hat/mask and sterile gloves Skin infiltrated with lidocaine 1%: yes Peripheral nerve block: Technique: ultrasound guided Needle type: insulated, pencil-tipped and echogenic Needle gauge: 21 G Needle length: 120 mm Injection assessment: injection made incrementally with constant monitoring, local visualized surrounding nerve on ultrasound, negative aspiration for heme, no paresthesias noted and normal resistance to injection Assessment: Block success: full evaluation pending Events: patient tolerated procedure well with no complications us Eliud Sandy MD ANESTHESIA ORDERABLES Fi nal Result * HI AN ELECTIVE ENDOTRACHEAL AIRWAY (01/24/2022 8:09 AM CDT) Narrative Braydon Henriquez CRNA - 01/24/2022 8:09 AM CDT Braydon Henriquez CRNA ? 01/24/2022 ??8:51 AM Airway Patient location: OR Urgency: elective Date/time: 01/24/2022 8:09 AM Indications for airway management: anesthesia Difficult airway: no Staff: Placed by: RADAR AIR TRAFFIC CONTROLLER: Braydon Henriquez CRNA Emergent airway documentation: Risks and benefits discussed: yes Consent obtained: yes Consent given by: patient Airway prep: Preoxygenated: yes Patient position: sniffing Mask difficulty assessment: 2 - vent by mask + OA or adjuvant Spontaneous ventilation during airway: absent Sedation level during airway: GA Final airway details: Final airway type: endotracheal airway Tube type: ETT ETT size: 7.5 mm Cuffed: yes Technique used for successful ETT placement: direct laryngoscopy Devices/Methods used in placement: stylet Insertion site: oral Blade type: Sandro Blade size: 4 Cormack-Lehane (direct): grade IIa - partial view of glottis Cuff volume: 7 mL Cuff inflated with: air ETT to gums: 23 cm Placement verified by: auscultation and CO2 detection Airway secured with: silk tape Number of attempts: 1 Additional comments: Direct laryngoscopy and atraumatic intubation performed by ENZO Winkler under the direct supervision of LATASHA. Lips and oral mucosa in preop condition after intubation. us Eliud Sandy MD ANESTHESIA ORDERABLES Fi nal Result documented in this encounter Visit Diagnoses Not on filedocumented in this encounter Administered Medications Inactive Administered Medications - up to 3 most recent administrations Medication Order MAR Action Action Date Dose Rate Site bupivacaine-EPINEPHrine (MARCAINE with EPI) 0.25 %-1:200,000 preservative free injection infiltration, As needed, Starting on Thu01/24/22 at 1215, Anesthesia Intra-op Given 01/24/2022 12:15 PM CDT 30 mL ceFAZolin (ANCEF) 1 gram/10 mL in sterile water (premix) 2,000 mg 2,000 mg, intravenous, at 400 mL/hr, Administer over 3 Minutes, Once, On Thu01/24/22 at 0700, For 1 dose, Pre-Op, Administer within 60 minutes of incision., Indications: Prophylaxis, SurgicalIndications:Prophylaxis , Surgical Given 01/24/2022 8:14 AM CDT 2,000 mg dexAMETHasone (DECADRON) injection solution intravenous, Administer over 2 Minutes, As needed, Starting on Thu01/24/22 at 0811, Anesthesia Intra-op Given 01/24/2022 8:11 AM CDT 8 mg esmoloL (BREVIBLOC) injection intravenous, Administer over 1 Minutes, As needed, Starting on Thu01/24/22 at 0805, Anesthesia Intra-op Given 01/24/2022 8:05 AM CDT 40 mg fentaNYL (SUBLIMAZE) preservative free injection intravenous, As needed, Starting on Thu01/24/22 at 0805, Anesthesia Intra-op Given 01/24/2022 9:46 AM CDT 25 mcg Given 01/24/2022 8:05 AM CDT 25 mcg glycopyrrolate (ROBINUL) injection intravenous, Administer over 1 Minutes, As needed, Starting on Thu01/24/22 at 0928, Anesthesia Intra-op Given 01/24/2022 9:28 AM CDT 0.8 mg Lactated Ringer's (LR) infusion 30 mL/hr, intravenous, Continuous, Starting on Thu01/24/22 at 0700, Pre-Op, New Bag 01/24/2022 9:55 AM CDT Restarted 01/24/2022 8:02 AM CDT Rate/Dose Verify 01/24/2022 8:00 AM CDT 30 mL/h r lidocaine (XYLOCAINE) 20 mg/mL (2 %) preservative free injection epidural, As needed, Starting on Thu01/24/22 at 0805, Anesthesia Intra-op Given 01/24/2022 8:05 AM CDT 100 mg neostigmine (PROSTIGMIN) injection intravenous, Administer over 3 Minutes, As needed, Starting on Thu01/24/22 at 0928, Anesthesia Intra-op Given 01/24/2022 9:28 AM CDT 5 mg ondansetron (ZOFRAN) injection intravenous, Administer over 2 Minutes, As needed, Starting on Thu01/24/22 at 0923, Anesthesia Intra-op Given 01/24/2022 9:23 AM CDT 4 mg phenylephrine (JUVE-SYNEPHRINE) 25,000 mcg in sodium chloride 0.9% 250 mL (100 mcg/mL) infusion intravenous, Continuous PRN, Starting on Thu01/24/22 at 0824, Anesthesia Intra-op New Bag 01/24/2022 8:24 AM CDT 0.2 mcg/kg/min 10.272 mL/hr phenylephrine (JUVE-SYNEPHRINE) injection intravenous, As needed, Starting on Thu01/24/22 at 0813, Anesthesia Intra-op Given 01/24/2022 8:21 AM CDT 200 mcg Given 01/24/2022 8:20 AM CDT 200 mcg Given 01/24/2022 8:18 AM CDT 200 mcg propofoL (DIPRIVAN) 10 mg/mL IV intravenous, As needed, Starting on Thu01/24/22 at 0805, Anesthesia Intra-op Given 01/24/2022 8:05 AM CDT 160 mg rocuronium (ZEMURON) injection intravenous, As needed, Starting on Thu01/24/22 at 0805, Anesthesia Intra-op Given 01/24/2022 8:52 AM CDT 20 mg Given 01/24/2022 8:30 AM CDT 10 mg Given 01/24/2022 8:05 AM CDT 40 mg documented in this encounter Care Teams Engraving Operator Relationship Specialty Start Date End Date Cassius London MD [address] [place] [id number] PCP - General 02/06/17 documented as of this encounter
--- OUTSIDE RECORDS SUMMARY | 2024-10-26 01:17 | XMS_ITS | Encounter Summary ---
Author Organization [facility] Address [address] [place] [address] Care Team Providers Care Harvesting Contractor Name Role Phone Cassius London MD Primary Care Provider + Encounter Details Date Type Department Care Team (Late st Contact Info) Description 06/27/2020 Telephone [facility] [address] [place] [address] Nicolas Gibson, RT Social History Tobacco Use Types Packs/Day Years Used Date Smoking Tobacco: Former Cigarettes Q uit: 2012 Smokeless Tobacco: Never Alcohol Use Standard Drinks/Week Comments No 0 (1 standard drink = 0.6 oz pur e alcohol) Sex and Gender Information Value Date Recorded Sex Assigned at Not on file Legal Sex Male 1:17 PM RETAIL SOLAR ADVISOR Gender Identity Not on file Sexual Orientation Not on file documented as of this encounter Plan of Treatment Not on file documented as of this encounter Visit Diagnoses Not on filedocumented in this encounter Additional Health Concerns Infection Onset Date Last Indicated Resolved Time COVID: Suspected 01/10/2023 01/10/2023 01/10/2023 1:18 PM RETAIL SOLAR ADVISOR COVID: Suspected 01/19/2024 01/19/2024 01/19/2024 10:16 PM CDT documented as of this encounter Care Teams Harvesting Contractor Relationship Specialty Start Date End Date Cassius London MD [address] [address] PCP - General 02/06/17 documented as of this encounter
--- OUTSIDE RECORDS SUMMARY | 2024-10-26 01:17 | XMS_ITS | Encounter Summary ---
Author Organization [facility] Address [address] [place] [address] Care Team Providers Care [employer] Name Role Phone Cassius London MD Primary Care Provider + Reason for Referral * Diagnostic Imaging (Routine) - Closed Specialty Diagnoses / Procedures Referred By Contac t Referred To Contact Diagnoses Renal mass Procedures US Kidney Complete US Bladder Sourav Veronica MD [address] [place] [address] Phone: tel: fax: [facility] [id number] [place] [address] Referral ID Status Reason Start Date Expiration Date Visits Re quested Visits Authorized [id number] Closed 01/03/2022 02/02/2023 1 1 Reason for Visit * Diagnostic Imaging (Routine) - Closed Specialty Diagnoses / Procedures Referred By Contac t Referred To Contact Diagnoses Renal mass Procedures US Kidney Complete US Bladder Sourav Veronica MD [address] [place] [id number] Phone: tel: fax: [facility] [id number] [place] [address] Referral ID Status Reason Start Date Expiration Date Visits Re quested Visits Authorized [id number] Closed 01/03/2022 02/02/2023 1 1 Encounter Details Date Type Department Care Team (Late st Contact Info) Description 01/30/2022 7:50 AM CDT - 01/30/2022 11:59 PM CDT Hospital Encounter [facility] [address] [place] [address] Sourav Veronica MD [address] [place] [id number] Renal mass Discharge Disposition: Discharge to home or self [...] on file Legal Sex Male 1:17 PM [employer] Gender Identity Not on file Sexual Orientation [...] (10 mg total) by mouth nightly 09/09/2021 [id number] ic-vit K-lycop (ONE-A-DAY MEN'S MULTIVITAMIN) 400-20-300 mcg [...] by mouth daily. 30 tablet 07/29/2017 3 irbesartan-hydro chlorothiazide (AVALIDE) 150-12.5 mg per tablet [...] Name Priority Date/Time Associated Diagnosis Comments US KIDNEY COMPLETE Schedule Routine, Read Routine (OP Routine) 01/30/2022 9:11 AM CDT Renal mass documented in this encounter Results * US Kidney Complete (01/30/2022 9:11 AM CDT) Anatomical Region Laterality Modality Kidney N/A Ultrasound 01/30/2022 10:4 3 AM CDT Narrative 01/30/2022 10:50 AM CDT EXAM DESCRIPTION: ?? US KIDNEY COMPLETE REASON FOR STUDY: ?? RENAL MASS ?Follow-up for main renal mass as seen on prior CT. TECHNIQUE: Ultrasound of the kidneys and urinary bladder was performed with grayscale imaging. COMPARISON: ?? 06/17/2021 FINDINGS: RIGHT KIDNEY: The right kidney measures ?? 11.0 x 4.5 x 4.3 ??cm. ?? There is no definite sonographic evidence of hydronephrosis. ??There is mild cortical thinning with increased cortical echogenicity. ??There is a small hypoechoic lesion containing a septation in the interpolar region of the right kidney measuring 0.9 x 0.8 x 0.4 cm, which previously measured 1.[address] ?? There is a cyst noted in the lower pole of the right kidney measuring 1.8 x 1.8 x 1.6 cm, which previously measured 1.[address] LEFT KIDNEY: The left kidney measures ?? 11.1 x 4.9 x 4.2 ??cm. ?? There is no definite sonographic evidence of hydronephrosis. ??There is mild cortical thinning with increased cortical echogenicity. ??There is redemonstration of the lobulated cyst in the upper to interpolar region of the left kidney measuring 4.7 x 4.4 x 4.0 cm and contains a septation, which previously measured up to 5.0 cm. ??There is a simple appearing cyst in the interpolar region of the left kidney measuring 2.0 x 1.9 x 1.7 cm, which previously measured up to 1.[address] ??There is a predominantly solid hypoechoic lesion noted in the inferior pole of the left kidney measuring 2.0 x 1.7 x 1.6 cm corresponding with the heterogeneously enhancing lesion on prior CT measuring 2.0 cm. URINARY BLADDER: ?? There is circumferential mucosal thickening of the urinary bladder. ??There is an enlarged prostate gland noted measuring 5.0 x 4.4 cm. OTHER: ?? No other additional findings. IMPRESSION: ?? 1. ?? No definite sonographic evidence of hydronephrosis. 2. ?? Mild cortical thinning with increased cortical echogenicity the bilateral kidneys, which is likely related to chronic medical renal disease. 3. ?? Redemonstration of the predominantly solid lesion in the lower pole of the left kidney, which corresponds with the enhancing lesion on prior CT, and remains concerning for renal cell carcinoma. 4. ?? Redemonstration of the lobulated mildly complicated cyst in the interpolar region of the left kidney, which is grossly similar in size. ?? Short-term follow-up ultrasound, CT, or MRI in 6 months is recommended to assess for stability as clinically indicated. 5. ?? Grossly stable complicated cyst in the interpolar region of the right kidney measuring up to 1.0 cm containing a septation. ??Continued attention on aforementioned follow-up is recommended. 6. ?? Circumferential mucosal thickening of the urinary bladder, which may be related to underdistention, chronic urinary bladder obstruction secondary to enlarged prostate gland, or cystitis. ??Clinical correlation with urinary analysis is recommended as clinically indicated. 7. ?? Enlarged prostate gland. ??Clinical correlation with physical exam findings and PSA values is recommended as clinically indicated. THIS IS AN ELECTRONICALLY VERIFIED FINAL REPORT 01/30/2022 10:50 AM - Electronically signed by ??Katy Cortez D.O. PS: PS D: ??01/30/2022 10:50 AM T: ??01/30/2022 10:50 AM Report ID: [id number] Reading Location: ??[id number] Procedure Note Katy Cortez, DO - 01/30/2022 EXAM DESCRIPTION: US KIDNEY COMPLETE REASON FOR STUDY: RENAL MASS Follow-up for main renal mass as seen on prior CT. TECHNIQUE: Ultrasound of the kidneys and urinary bladder was performedwith grayscale imaging. COMPARISON: 06/17/2021 FINDINGS: RIGHT KIDNEY: The right kidney measures 11.0 x 4.5 x 4.3 cm. There isno definite sonographic evidence of hydronephrosis. There is mild cortical thinning with increased cortical echogenicity. There is a smallhypoechoic lesion containing a septation in the interpolar region of the right kidney measuring 0.9 x 0.8 x 0.4 cm, which previously measured 1.0 cm on priorCT. There is a cyst noted in the lower pole of the right kidney measuring 1.8x 1.8 x 1.6 cm, which previously measured 1.[address] LEFT KIDNEY: The left kidney measures 11.1 x 4.9 x 4.2 cm. There isno definite sonographic evidence of hydronephrosis. There is mild cortical thinning with increased cortical echogenicity. There is redemonstrationof the lobulated cyst in the upper to interpolar region of the left kidney measuring 4.7 x 4.4 x 4.0 cm and contains a septation, which previously measured up to 5.0 cm. There is a simple appearing cyst in the interpolar region of the left kidney measuring 2.0 x 1.9 x 1.7 cm, which previously measured up to 1.[address]. There is a predominantly solidhypoechoic lesion noted in the inferior pole of the left kidney measuring 2.0 x 1.7 x1.6 cm corresponding with the heterogeneously enhancing lesion on prior CT measuring 2.0 cm. URINARY BLADDER: There is circumferential mucosal thickening of theurinary bladder. There is an enlarged prostate gland noted measuring 5.0 x 4.4cm. OTHER: No other additional findings. IMPRESSION: 1. No definite sonographic evidence of hydronephrosis. 2. Mild cortical thinning with increased cortical echogenicity thebilateral kidneys, which is likely related to chronic medical renal disease. 3. Redemonstration of the predominantly solid lesion in the lower poleof the left kidney, which corresponds with the enhancing lesion on prior CT,and remains concerning for renal cell carcinoma. 4. Redemonstration of the lobulated mildly complicated cyst in the interpolar region of the left kidney, which is grossly similar in size. Short-term follow-up ultrasound, CT, or MRI in 6 months is recommended to assess for stability as clinically indicated. 5. Grossly stable complicated cyst in the interpolar region of the right kidney measuring up to 1.0 cm containing a septation. Continued attentionon aforementioned follow-up is recommended. 6. Circumferential mucosal thickening of the urinary bladder, which maybe related to underdistention, chronic urinary bladder obstruction secondaryto enlarged prostate gland, or cystitis. Clinical correlation with urinary analysis is recommended as clinically indicated. 7. Enlarged prostate gland. Clinical correlation with physical exam findings and PSA values is recommended as clinically indicated. THIS IS AN ELECTRONICALLY VERIFIED FINAL REPORT 01/30/2022 10:50 AM - Electronically signed by Katy Cortez D.O. PS: PS Report ID: [id number] Reading Location: [id number] Sourav Veronica MD [facility] PROCED[facility] Final Result documented in this encounter Visit Diagnoses Diagnosis Renal mass Unspecified disorder of kidney and ureter documented in this encounter Care Teams [employer] Relationship Specialty Start Date End Date Cassius London MD [address] [place] [address] PCP - General 02/06/17 documented as of this encounter
--- OUTSIDE RECORDS SUMMARY | 2024-10-26 01:17 | XMS_ITS | Encounter Summary ---
Author Organization [facility] Healthcare Address [address] [place] [address] Care Team Providers Care Geophysical Prospector Name Role Phone Cassius London MD Primary Care Provider + Encounter Details Date Type Department Care Team (Late st Contact Info) Description 01/24/2022 8:00 AM CDT - 01/24/2022 10:05 AM CDT Surgery [facility] Operating Room [address] [place] [address] Willie Brown MD [address] [place] [id number] REPAIR INGUINAL HERNIA - LAPAROSCOPIC ROBOTIC ASSISTED, LEFT Surgery Details Date/Time Status Location OR Service Patient Class Case Cl ass Case Type Trauma Case? 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[employer] Gender Identity Not on file Sexual Orientation Not on file documented as of this encounter Last Filed Vital Signs Vital Sign Reading Time Taken Comments Blood Pressure 174/79 01/24/2022 10:05 AM CDT Pulse 101 01/24/2022 10:05 AM CDT Temperature 36.2 ??C (97.2 ??F) 01/24/2022 1 0:00 AM CDT Respiratory Rate 27 01/24/2022 10:0 5 AM CDT Oxygen Saturation 93% 01/24/2022 10: 05 AM CDT Inhaled Oxygen Concentration - - Weight 85.6 kg (188 lb 11.4 oz) 01/24/2022 6:29 AM CDT Height 171.5 cm (5' 7.5 ) 01/24/2022 6:29 AM CDT Body Mass Index 29.12 01/24/2022 6:29 AM CDT documented in this encounter Discharge Instructions * Discharge Instructions* Willie Brown MD - 01/24/2022 9:28 AM CDT Discharge Instructions: 1. No driving while on narcotics 2. No heavy lifting greater than a milk jug until follow up 3. Ice to operative site, on 15 minutes off 15 minutes as needed for pain 4. May shower starting 01/25, No tub baths or soaking of incisions 5. Take stool softner while on narcotics to prevent constipation 6. Call for worsening pain, erythema, drainage or any other concerns about your incisions or post operative course 7. Follow up in 1 week, Please call office for appointment 8. Diet, until follow up: as tolerates * Attachments The following attachments cannot be sent through Care Everywhere. * General Anesthesia (Discharge Care) (Sri Lankan) * Tramadol (By mouth) ([place]ri [place]ankan) * Laxative, Stimulant Combination (By mouth) ([place]ri [place]ankan) * Inguinal Hernia Repair (Discharge Care) ([place] Lankan) documented in this encounter Medications at Time [...] (10 mg total) by mouth nightly 09/09/2021 [id number]-ipl-oru ic-vit K-lycop (ONE-A-DAY MEN'S MULTIVITAMIN) 400-20-300 mcg [...] needed for pain 25 tablet 01/24/2022 4 Gideon Truongta 100-62.5-25 mcg inhaler TAKE 1 INHALATION BY MOUTH DAILY 08/28/2021 3 documented as of this encounter Ordered Prescriptions Prescription Sig Dispense Quantity Refills Last Filled Start Date End Date docusate sodium (Colace) 100 mg capsuleIndications :constipation Take 1 capsule (100 mg total) by mouth 2 (two) times a day for 14 days 28 capsule 2 01/24/2022 traMADoL (ULTRAM) 50 mg tablet Take 0.5 tablets (25 mg total) by mouth every 6 (six) hours as needed for pain 25 tablet 01/24/2022 4 ondansetron (ZOFRAN) 4 mg tablet Take 1 tablet (4 mg total) by mouth every 6 (six) hours as needed for nausea or vomiting for up to 14 days 30 tablet 01/24/2022 2 documented in this encounter Discharge Disposition Disposition Code Departure Means Destination Discharge to home or self care documented in this encounter Consult Notes * Willie Brown MD - 01/24/2022 8:00 AM CDT Patient seen and examined, no change from prior visit. Acceptable risk to proceed with surgery Willie Brown MD 01/24/2022 8:01 AM Surgery H&P ?? Subjective: ?? Patient Name: Xavier Clarke ?? Date of Visit: 12/19/21 ?? HPI: Xavier Clarke is a 81 y.o. male presenting for surgical evaluation of Left groin pain. This began roughly 3 weeks ago. He has COPD and with coughing he noticed a bulge developed in the left groin. At that time he was able to reduce it. However now any time he coughs he will feel pain in that area described as a dull ache. He was referred to surgery for further evaluation. ?? Chief Complaint: Hernia (LIH) ?? Referred by: Cassius London MD ?? Allergies as of 12/19/2021 - Reviewed 12/19/2021 Allergen Reaction Noted ??? Miguel A inhibitors Cough ? Acetaminophen Unknown 06/29/2020 ? ? Vicodin [hydrocodone-acetaminophen] Nausea & Vomiting 08/27/2017 ? Current Outpatient Medications: ??? albuterol HFA (PROAIR HFA) 90 mcg/actuation inhaler ??? aspirin 81 mg chewable tablet ??? calcium carbonate (OS-PINEDA) 1,500 mg (600 mg of elemental calcium) tablet ??? cholecalciferol (VITAMIN D-3) 5,000 unit tablet ??? irbesartan-hydrochlorothiazide (AVALIDE) 150-12.5 mg per tablet ??? montelukast (SINGULAIR) 10 mg tablet ??? ypmkvlib-obn-bnswk-vit K-lycop (ONE-A-DAY MEN'S MULTIVITAMIN) 400-20-300 mcg tablet ??? simvastatin (ZOCOR) 40 mg tablet ??? tamsulosin (FLOMAX) 0.4 mg capsule,extended release 24hr ??? Trelegy Ellipta 100-62.5-25 mcg inhaler ??? fluorouraciL (EFUDEX) 5 % cream ?? Medical History Past Medical History: Diagnosis Date ??? Asbestosis (CMS/HCC) (HCC) ? asbestosis ??? Cancer (CMS/HCC) (HCC) ? biopsy showed small area of prostate cancer ??? Chronic diarrhea ? HX OTHER MEDICAL ? dyslipidemia ??? HX OTHER MEDICAL ? PAD ??? HX OTHER MEDICAL ? ED ??? HX OTHER MEDICAL ? 01-pulmonolgist ??? HX OTHER MEDICAL ? v. veins ??? HX OTHER MEDICAL ? prostatism ??? HX OTHER MEDICAL ? diastasis recti ??? HX OTHER MEDICAL 2002 ?? diverticular bleed ??? HX OTHER MEDICAL 2012 ?? Prostate biopsy ??? Hypertension ? Hypertension ??? Mixed hyperlipidemia ? Obstructive chronic bronchitis without exacerbation (CMS/HCC) (HCC) ? Polyp of colon ? colon polyps ?? Surgical History Past Surgical History: Procedure Laterality Date ??? BACK SURGERY ? back surgery x 3 ??? BREAST LUMPECTOMY Right ? Benign / done years ago / ??? COLONOSCOPY ?? 08/12/2016 ??? HERNIA REPAIR ? Hernia repair ??? OTHER SURGICAL HISTORY ? s/p HNP L spine ?? Family History Problem Relation Age of Onset ??? Dementia Mother 87 ?? Dementia; ??? Cancer Mother 87 ?? cancer; ??? Other Father ? hx not provided; ??? Cancer Brother 60 ?? Cancer -; ??? Bone cancer Brother ? Brain cancer Brother 62 ?? Cancer -brain; ??? Lung cancer Brother 62 ?? Cancer -lung; ??? Lung cancer Sister ? Cancer, lung; ??? Brain cancer Sister ? Social History ?? Socioeconomic History ??? Marital status: ? Spouse name: Not on file ??? Number of children: Not on file ??? Years of education: Not on file ??? Highest education level: Not on file Occupational History ??? Not on file Tobacco Use ??? Smoking status: Former Smoker ? Quit date: 2011 ? Years since quittin.1 ??? Smokeless tobacco: Never Used Substance and Sexual Activity ??? Alcohol use: No ??? Drug use: No ??? Sexual activity: Defer ? Partners: Female Other Topics Concern ??? Not on file Social History Narrative ??? Not on file ?? Social Determinants of Health ?? Financial Resource Strain: Not on file Food Insecurity: Not on file Transportation Needs: Not on file Physical Activity: Not on file Stress: Not on file Social Connections: Not on file Intimate Partner Violence: Not on file Housing Stability: Not on file ?? Review of Systems ?? Constitutional: Negative for activity change. HENT: Negative for hearing loss and sore throat. Eyes: Negative for visual disturbance. Respiratory: Negative for cough and shortness of breath. Cardiovascular: Negative for chest pain. Gastrointestinal: Positive for groin pain Genitourinary: Negative for dysuria. Musculoskeletal: Negative for back pain. Neurological: Negative for dizziness and syncope. Psychiatric/Behavioral: Negative for agitation and confusion. ? Objective: ?? Vitals BP 167/91 (BP Location: Right arm, Patient Position: Sitting) Pulse 97 Temp 36.2 ??C (97.1 ??F) Ht 172.7 cm (5' 8 ) Wt 86.3 kg (190 lb 4.8 oz) SpO2 92% BMI 28.94 kg/m? Physical Exam ?? Constitutional: The patient is oriented to person, place, and time. They appear well-nourished. No distress. Head: Normocephalic and atraumatic. Eyes: Pupils are equal, round, and reactive to light. Neck: No thyromegaly present. Cardiovascular: Normal rate and regular rhythm. Pulmonary/Chest: Effort normal and breath sounds normal. Abdominal: Soft. non distended. There is no tenderness. No hernia. Genitourinary: Rectum normal. Left inguinal impulse appreciated Musculoskeletal: Normal range of motion. Neurological: alert and oriented to person, place, and time. Skin: Skin is warm and dry. Psychiatric: normal mood and affect. ?? Assessment/Plan Diagnoses and all orders for this visit: ?? Inguinal hernia without obstruction or gangrene, recurrence not specified, unspecified laterality Assessment & Plan: I will set the patient up for a robotic assisted left inguinal hernia repair. Risks and benefits have been discussed as well as postoperative restrictions. Preoperative testing will be sent in. Consent to be obtained. All questions answered. documented in this encounter Miscellaneous Notes * Perioperative Nursing Note - Aisha De La O RN - 01/24/2022 10:09 AM CDT 1000- Patient unable to take deep breaths on arrival to [facility]. Respirations shallow. Very sleepy. Not easily arousable. Dr. Sandy at bedside assessing patient's status. Orders received to have RT come and place patient on bipap until more alert and awake and able to take deeper breaths. 1005-RT at bedside and applied bipap. Will continue to monitor patient's progress. Basia * Op Note - Willie Brown MD - 01/24/2022 8:20 AM CDT NAME: Xavier Clarke DATE OF : 1940 SURGEON: Willie Brown MD EMPLOYEE WELFARE MANAGER:Copper Roller Handler Printing: Julia New RN Physician Parts Person: Sherrill Lewis NP Scrub: Genie Wong ST CAD DESIGN ENGINEER: Chapis Castle RN DATE OF SURGERY: 01/24/2022 PREOP DIAGNOSES: Left inguinal hernia POSTOP DIAGNOSES: Indirect left inguinal hernia PROCEDURE: 1. Robot assisted left inguinal hernia repair with Pro Quarryman mesh INDICATIONS OF PROCEDURE: The patient is an 81-year-old male with progressively symptomatic inguinal hernia. On exam he had a quite large inguinal hernia. He was set up for repair. DETAILS OF PROCEDURE: After informed consent was obtained the patient was taken to the operating room and placed supine on the operating table. SCD boots were applied to bilateral lower extremities. General endotracheal intubation was achieved. Perioperative antibiotics were administered and a preoperative time-out completed. The patient was then prepped and draped in standard sterile fashion. Attention was directed towards the abdomen where a 1.5 cm supraumbilical incision was made. Using Optiview technique a 5 mm trocar and 0 degree scope was inserted into the abdominal cavity under direct visualization. The abdomen was insufflated to 15 mmHg. No bowel was noted to be in the vicinity of this initial trocar entrance. At this time 8 mm robotic trocars were placed in the left and right mid abdomen and the supraumbilical port upsized to an 8 mm trocar. An indirect left inguinal hernia was clearly identified without any sign of hernia on the right. At this time our mesh was inserted as well as a 3 0 absorbable V lock suture. The robot was then docked. The peritoneum was scored starting roughly at the level of the ASIS. This was carried medially to the roughly about the level of the pubic tubercle. Using blunt dissection the preperitoneal space was created. The extent of our dissection medially was takenuntil the pubic tubercle was identified. The epigastric vessels were identified and protected. Nextwe slowly began to reduce a very large and chronically scarred in indirect hernia sac from the cordand cord structures. He also had a significant amount preperitoneal fat was in the hernia as well that was reduced. During this time the cord structures and vas deferens were identified throughout and protected. Once reduced we further evaluated the area. There is no sign of direct defect or femoral hernia. At this time our mesh was placed into our preperitoneal space. It adequately covered the pubic tubercle as well as the direct and indirect spaces with good overlap. The peritoneum was then closed over our mesh with a running 3 0 absorbable V lock suture. At this time our needles were removed. Pneumoperitoneum was evacuated and trocars removed under direct visualization. No bleeding was noted. The skin of all trocar sites were closed with interrupted 4 0 Monocryl subcuticular stitches. Dermabond was then applied. The patient was awoken from anesthesia and transferred to recovery in stable condition. At the end of the procedure all sponge, needle and instrument counts were reported to be correct x2 at the end of the case. ANESTHESIA: General. Plus 10 cc of 0.5% Marcaine COMPLICATIONS: None BLOOD LOSS: 5 cc SPECIMEN: None Willie Brown MD 01/24/2022 9:29 AM * Perioperative Nursing Note - Leatha Holloway RN - 01/21/2022 10:01 AM CDT Patient states he has had both vaccines and the booster. * Pre-Procedure Instructions - Leatha Holloway RN - 01/21/2022 9:56 AM CDT We are pleased that you and your doctor have chosen [facility] for your surgery. We hope that the following information will help make your visit a pleasant one. Surgery Date: 01/24/2022 Before your surgery: ?? Notify your doctor of ANY change in your health such as a cold, sore throat, fever, any infection or a change in the problem for which you are having your surgery. ?? Follow any instructions given to you by your doctor or surgeon. Check with your doctor if you need to STOP taking: ?? Aspirin (ordered by your doctor) ?? Plavix ?? Coumadin One week before surgery STOP taking: ?? All herbal supplements ?? Aspirin (not ordered by your doctor) ?? Aleve, Advil, Motrin, Ibuprofen, or other similar medications (Tylenol is okay). 24 hours before your surgery: ?? No smoking or alcoholic drinks. Night before your surgery: ?? Do not eat or drink anything after midnight. ?? Follow surgeon's instructions for anti-bacterial shower night before and morning of surgery. Day of surgery: ?? Do not swallow any water when you brush your teeth. ?? ONLY take these pills with a tiny sip of water. Pre-Surgery Instructions: Medication Instructions ??? albuterol HFA (PROAIR HFA) 90 mcg/actuation inhaler ??? irbesartan-hydrochlorothiazide (AVALIDE) 150-12.5 mg per tablet ??? montelukast (SINGULAIR) 10 mg tablet ??? simvastatin (ZOCOR) 40 mg tablet ??? tamsulosin (FLOMAX) 0.4 mg capsule,extended release 24hr ??? Trelegy Ellipta 100-62.5-25 mcg inhaler ?? Use no make-up, nail ivorian, lotions, oils or powders on your skin. ?? Wear comfortable clothes that will not be tight in the area of your surgery. ?? Leave all valuables and jewelry (including all body piercing jewelry) at home. ?? Please bring your a photo ID and insurance cards with you. After your Outpatient Surgery: ?? You must have a responsible adult to drive you home, you will not be allowed to drive or take a cab home. ?? We recommend you have someone stay with you for 24 hours after your surgery. What to bring if you are spending the night with us: ?? Bring toiletry items such as: robe, slippers, toothbrush, toothpaste, brush or comb. ?? Bring contact lens, hearing aids, glass cases and denture container if you use any of these items. ?? The hospital will provide you with a gown. Questions or concerns: ?? If you have any questions or concerns regarding your procedure, contact your surgeon as soon as possible. ?? If you have questions regarding your Pre-Admission Testing, please call us. We can be reached atthe number posted at the top of the page. documented in this encounter Plan of Treatment Not on file documented as of this encounter Procedures Procedure Name Priority Date/Time Associated Diagnosis Comments XI REPAIR INGUINAL HERNIA - LAPAROSCOPIC ROBOTIC ASSISTED 01/24/2022 8:00 AM CDT Left inguinal hernia POTASSIUM, WHOLE BLOOD STAT 01/24/2022 7:08 AM CDT DIFFERENTIAL AUTO STAT 01/24/2022 7:0 8 AM CDT CBC WITH AUTO DIFFERENTIAL STAT 01/24/2022 7:08 AM CDT ABO/RH STAT 01/24/2022 7:08 AM CDT ANTIBODY SCREEN STAT 01/24/2022 7:08 AM CDT TYPE AND SCREEN STAT 01/24/2022 7:08 AM CDT documented in this encounter Results * Differential, auto (01/24/2022 7:08 AM CDT) Neutrophil abs 5.8 1.7 - 6.5 K/cumm [facility] ([place]) Imm gran abs 0.0 0.0 - 0.1 K/cumm [facility] ([place]) Lymphocyte abs 2.1 0.8 - 3.3 K/cumm [facility] ([place]) Monocyte abs 0.6 0.2 - 0.8 K/cumm [facility] ([place]) Eosinophil abs 0.2 0.0 - 0.5 K/cumm [facility] ([place]) Basophil abs 0.1 0.0 - 0.1 K/cumm [facility] ([place]) Neutrophil pct 65.9 % [facility] ([place]) Comment: Interpretive Data Percent cell count reference ranges are not reported, since discordance with absolute values may lead to misinterpretation of CBC data. Current Interpretive Data was last revised on 2018. Imm gran pct 0.2 % [facility] ([place]) Comment: Interpretive Data Percent cell count reference ranges are not reported, since discordance with absolute values may lead to misinterpretation of CBC data. Current Interpretive Data was last revised on 2018. Lymphocyte pct 24.4 % [facility] ([place]) Comment: Interpretive Data Percent cell count reference ranges are not reported, since discordance with absolute values may lead to misinterpretation of CBC data. Current Interpretive Data was last revised on 2018. Monocyte pct 6.5 % [facility] ([place]) Comment: Interpretive Data Percent cell count reference ranges are not reported, since discordance with absolute values may lead to misinterpretation of CBC data. Current Interpretive Data was last revised on 2018. Eosinophil pct 2.3 % [facility] ([place]) Comment: Interpretive Data Percent cell count reference ranges are not reported, since discordance with absolute values may lead to misinterpretation of CBC data. Current Interpretive Data was last revised on 2018. Basophil pct 0.7 % [facility] ([place]) Comment: Interpretive Data Percent cell count reference ranges are not reported, since discordance with absolute values may lead to misinterpretation of CBC data. Current Interpretive Data was last revised on 2018. Blood 01/24/2022 7:08 AM CDT 01/24/2022 7:11 AM CDT Willie Brown MD LAB BLOOD ORDERA BLES Final Result [facility] ([place]) 1 [facility] Department [place] [address] * Antibody screen (01/24/2022 7:08 AM CDT) Spencer, indirect, Gel Interpretation Negative ABSC [facility] ([place]) Blood 01/24/2022 7:08 AM CDT 01/24/2022 7:11 AM CDT Narrative [facility] ([place]) - 01/24/2022 7:55 AM CDT Has the patient had Daratumumab or Isatuximab in the past 6 months?->Unknown Willie Brown MD LAB BLOOD BANK T EST ORDERABLES Final Result Performing Organization Address City/[facility]/ZIP Co de Phone Number [facility] ([place]) 1 [facility] [place] [address] * ABO/Rh (01/24/2022 7:08 AM CDT) Pathologist [facility] ABO/Rh A Positive [facility] ([place]) Blood 01/24/2022 7:08 AM CDT 01/24/2022 7:11 AM CDT Narrative [facility] ([place]) - 01/24/2022 7:55 AM CDT Has the patient had Daratumumab or Isatuximab in the past 6 months?->Unknown Willie Brown MD LAB BLOOD BANK T EST ORDERABLES Final Result Performing Organization Address [facility] de Phone Number [facility] ([place]) 1 [facility] [place] [address] * (ABNORMAL) CBC with auto differential (01/24/2022 7:08 AM CDT) Pathologist [facility] WBC 8.7 3.8 - 9.9 K/cumm [facility] ([place]) Hgb 12.9(L) 13.0 - 17.5 g/dL [facility] ([place]) Hct 38.0(L) 38.9 - 50.3 % [facility] ([place]) Plt 218 150 - 400 K/cumm [facility] ([place]) MPV 9.5 9.1 - 12.3 fL [facility] ([place]) RBC 3.95(L) 4.30 - 5.80 M/cumm [facility] ([place]) MCV 96.2 81.3 - 96.4 fL [facility] ([place]) MCH 32.7 27.1 - 33.3 pg [facility] ([place]) MCHC 33.9 32.3 - 35.7 g/dL [facility] ([place]) RDW CV 13.2 11.1 - 14.9 % [facility] ([place]) RDW SD 46.5 35.7 - 48.1 fL [facility] ([place]) NRBC abs 0.00 0.00 - 0.01 K/cumm NNEKA [facility] ([place]) Blood 01/24/2022 7:08 AM CDT 01/24/2022 7:11 AM CDT Willie Brown MD LAB BLOOD ORDERA BLES Final Result Performing Organization Address [facility] Co de Phone Number [facility] ([place]) 1 [facility] [place] [address] * Potassium, whole blood (01/24/2022 7:08 AM CDT) Potassium, bld 4.0 3.3 - 4.9 mmol/L NNEKA [facility] ([place]) Comment: Interpretive Data Unable to assess hemolysis. ??Invitro hemolysis causes falsely elevated potassium. Current Interpretive Data was last revised on 2020. Blood 01/24/2022 7:08 AM CDT 01/24/2022 7:11 AM CDT Eliud Sandy MD LAB BLOOD ORDERABLES Fin al Result Performing Organization Address [facility] Co de Phone Number [facility] ([place]) 1 [facility] [place] [address] documented in this encounter Visit Diagnoses Diagnosis Inguinal hernia without obstruction or gangrene- Primary Inguinal hernia without mention of obstruction or gangrene, unilateral or unspecified, (not specified as recurrent) Left inguinal hernia Inguinal hernia without mention of obstruction or gangrene, unilateral or unspecified, (not specified as recurrent) documented in this encounter Admitting Diagnoses Diagnosis Inguinal hernia without obstruction or gangrene Inguinal hernia without mention of obstruction or gangrene, unilateral or unspecified, (not specified as recurrent) documented in this encounter Administered Medications Inactive Administered Medications - up to 3 most recent administrations Medication Order MAR Action Action Date Dose Rate Site bupivacaine (MARCAINE) 0.5 % (5 mg/mL) preservative free injection As needed, Starting on Thu01/24/22 at 0840, Intra-Op Given 01/24/2022 8:40 AM CDT 4 mL Abdominal Tissue dextrose 5% and Lactated Ringer's infusion 50 mL/hr, intravenous, Continuous, Starting on Thu01/24/22 at 1345 New Bag 01/24/2022 1:13 PM CDT 50 mL/hr 50 mL/hr fentaNYL (SUBLIMAZE) preservative free injection 25 mcg 25 mcg, intravenous, Every 10 min PRN, 1st line for pain, Starting on Thu01/24/22 at 0932, Phase I, Notify Anesthesiologist if total PACU dose reaches 100 mcg and pain score 5/10 or more., Indications: PainIndications:Pain Given 01/24/2022 10:40 AM CDT 25 mcg Given 01/24/2022 10:28 AM CDT 25 mcg Given 01/24/2022 10:18 AM CDT 25 mcg ketorolac (TORADOL) 15 mg/mL injection 15 mg 15 mg, intravenous, Once, On Thu01/24/22 at 1130, For 1 dose, Phase I, For Adult IV push, administer over 15 seconds Given 01/24/2022 11:00 AM CDT 15 mg Lactated Ringer's (LR) infusion 30 mL/hr, intravenous, Continuous, Starting on Thu01/24/22 at 0700, Pre-Op, New Bag 01/24/2022 9:55 AM CDT Restarted 01/24/2022 8:02 AM CDT Rate/Dose Verify 01/24/2022 8:00 AM CDT 30 mL/h r Lactated Ringer's (LR) infusion 125 mL/hr, intravenous, Continuous, Starting on Thu01/24/22 at 1015, Phase I metoclopramide (REGLAN) injection 10 mg 10 mg, intravenous, Administer over 1 Minutes, Once as needed, nausea, vomiting, Starting on Thu01/24/22 at 0932, For 1 dose, Phase I, Doses up to 10 mg can be given IV push undiluted over 1 to 2 minutes; higher doses (>10 mg) to be diluted in 50 mL of compatible solution (preferably NS) and given IVPB over at least 15 minutes. Note: Rapid IV administration may be associated with a transient (but intense) feeling of anxiety and restlessness, followed by drowsiness. Given 01/24/2022 11:29 AM CDT 10 mg prochlorperazine (COMPAZINE) injection 5 mg 5 mg, intravenous, Administer over 2 Minutes, Once, On Thu01/24/22 at 1345, For 1 dose Given 01/24/2022 1:10 PM CDT 5 mg sodium chloride 0.9% irrigation As needed, Starting on Thu01/24/22 at 0743, Intra-Op Given 01/24/2022 7:43 AM CDT 1,000 mL Surgical Site documented in this encounter Discontinued Medications Medication Sig Discontinue Reason Start Date End Da te fluorouraciL (EFUDEX) 5 % cream Apply topically 2 (two) times a day For 6 weeks Therapy completed 12/14/2020 01/21/2022 documented as of this encounter Active and Recently Administered Medications Times are shown in CDT. Scheduled Medication Order 01/22/2022 01/23/2022 01/24/2022 ceFAZolin (ANCEF) 1 gram/10 mL in sterile water (premix) 2,000 mg (COMPLETED) 2,000 mg, intravenous, at 400 mL/hr, Administer over 3 Minutes, Once, On Thu01/24/22 at 0700, For 1 dose, Pre-Op, Administer within 60 minutes of incision., Indications: Prophylaxis, Surgical 0814 (Given - Provid er: Braydon Henriquez CRNA) ketorolac (TORADOL) 15 mg/mL injection 15 mg (COMPLETED) 15 mg, intravenous, Once, On Thu01/24/22 at 1130, For 1 dose, Phase I, For Adult IV push, administer over 15 seconds 1100 (Given - Provid er: Aisha De La O RN) prochlorperazine (COMPAZINE) injection 5 mg (COMPLETED) 5 mg, intravenous, Administer over 2 Minutes, Once, On Thu01/24/22 at 1345, For 1 dose 1310 (Given - Provid er: Abdi Puri RN) traMADoL (ULTRAM) tablet 25 mg 25 mg, oral, Once, On Thu01/24/22 at 1300, For 1 dose 1300 (Due) Continuous Medication Order 01/22/2022 01/23/2022 01/24/2022 dextrose 5% and Lactated Ringer's infusion 50 mL/hr, intravenous, Continuous, Starting on Thu01/24/22 at 1345 1313 (New Bag - Prov ider: Abdi Puri RN)191 (Due: Stopped) Lactated Ringer's (LR) infusion 30 mL/hr, intravenous, Continuous, Starting on Thu01/24/22 at 0700, Pre-Op, 0723 (New Bag - Prov ider: Abdi Puri RN)0800 (Rate/Dose Verify - Provider: Braydon Henriquez CRNA)0801 (Paused - Provider: Braydon eHnriquez CRNA - Comment: Switch to gravity)0802 (Restarted - Provider: Braydon Henriquez CRNA)0955 (New Bag - Provider: Braydon Henriuqez CRNA)191 (Due: Stopped) Lactated Ringer's (LR) infusion 125 mL/hr, intravenous, Continuous, Starting on Thu01/24/22 at 1015, Phase I 1015 (Due) PRN Medication Order 01/22/2022 01/23/2022 01/24/2022 bupivacaine (MARCAINE) 0.5 % (5 mg/mL) preservative free injection (CANCELED) As needed, Starting on Thu01/24/22 at 0840, Intra-Op 0840 (Given - Provid er: Willie Brown MD) fentaNYL (SUBLIMAZE) preservative free injection 25 mcg (CANCELED) 25 mcg, intravenous, Every 10 min PRN, 1st line for pain, Starting on Thu01/24/22 at 0932, Phase I, Notify Anesthesiologist if total PACU dose reaches 100 mcg and pain score 5/10 or more., Indications: Pain 1018 (Given - Provid er: Aisha De La O RN)1028 (Given - Provider: Aisha De La O RN)1040 (Given - Provider: Aisha De La O RN) metoclopramide (REGLAN) injection 10 mg (COMPLETED) 10 mg, intravenous, Administer over 1 Minutes, Once as needed, nausea, vomiting, Starting on Thu01/24/22 at 0932, For 1 dose, Phase I, Doses up to 10 mg can be given IV push undiluted over 1 to 2 minutes; higher doses (>10 mg) to be diluted in 50 mL of compatible solution (preferably NS) and given IVPB over at least 15 minutes. Note: Rapid IV administration may be associated with a transient (but intense) feeling of anxiety and restlessness, followed by drowsiness. 1129 (Given - Provid er: Aisha De La O RN) sodium chloride 0.9% irrigation (CANCELED) As needed, Starting on Thu01/24/22 at 0743, Intra-Op 0743 (Given - Provid er: Willie Brown MD - Comment: to sterile field) documented in this encounter Orders Medications Ordered That Clint ht Not Have Been Administered Count Last Ordered Date First Ordered Date bupivacaine-EPINEPHrine (MILI DUNBAR with EPI) 0.25 %-1:200,000 preservative free injection - ADS Override Pull 1 01/24/2022 ceFAZolin (ANCEF) 1 gram/10 mL in sterile water (premix) 2,000 mg 1 01/24/2022 Lactated Ringer's (LR) infusion 1 2 lidocaine (XYLOCAINE) 20 mg/ mL (2 %) preservative free injection - ADS Override Pull 1 01/24/2022 naloxone (NARCAN) 0.4 mg/mL injection 0.04-0.4 mg 1 01/24/2022 sodium chloride 0.9% flush 0.5-20 mL 1 01/07 traMADoL (ULTRAM) tablet 25 mg 1 01/24/2022 documented in this encounter Care Teams Geophysical Prospector Relationship Specialty Start Date End Date Cassius London MD [address] [place] [address] PCP - General 02/06/17 documented as of this encounter
--- OUTSIDE RECORDS SUMMARY | 2024-10-26 01:17 | XMS_ITS | Encounter Summary ---
Author Organization [facility] Address [address] [facility] [address] [place] [address] Phone Care Team Providers Care Machine Repairer Name Role Phone Cassius London MD Primary Care Provider + Reason for Visit * Reason Comments Follow-up * Consultation (Routine) - Closed Specialty Diagnoses / Procedures Referred By Italia t Referred To Contact Plastic Surgery Diagnoses SCC (squamous cell carcinoma), ear, right Cassius London MD [address] [place] [address] Phone: tel: fax: [facility] (All Locations) Referral ID Status Reason Start Date Expiration Date V isits Requested Visits Authorized [id number] Closed Specialty Services Required 12/06/2020 12/01/2021 12 12 Encounter Details Date Type Department Care Team (Late st Contact Info) Description 08/26/2021 8:00 AM CDT Office Visit [facility] Physicians [facility] Surgery [address] [place] [address] A [address] [place] [id number] Patricia Donato MD [address] [facility] [phone] [place] [address] Basal cell carcinoma (BCC) of [...] on file 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 male who is referred for newly diagnosed basal cell carcinoma.The patient states this cheek lesion has been present for several months. It did not cause him any pain. Not itch. It has never bled on him. He was seen by his message and delivery service pricer, Dr. Ordoñez, who performed a biopsy of this area that resulted in basal cell carcinoma. She presents today for further treatment evaluation. 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 He does not have a significant history of sun exposure in his past. He worked for [employer]. He intermittently smokes cigarettes. He is currently on and off face. He does not have diabetes. He takes 81 mg aspirin daily. Of note, he has prostate cancer which they are observing. Past Medical History: Diagnosis Date ??? Asbestosis [...] lung; ??? Brain cancer Sister Social History Socioeconomic History ??? Marital status: Spouse name: None ??? Number of children: None ??? Years of education: None ??? Highest education level: None Occupational History ??? None Tobacco Use ??? Smoking status: Former Smoker Quit date: 2012 Years since quittin.8 ??? Smokeless tobacco: Never Used Substance and Sexual Activity ??? Alcohol use: No ??? Drug use: No ??? Sexual activity: Defer Partners: Female Other Topics Concern ??? None Social History Narrative ??? None Social Determinants of Health Financial Resource Strain: ??? Difficulty of Paying Living Expenses: Not on file Food Insecurity: ??? Worried About Running Out of Food in the Last Year: Not on file ??? Ran Out of Food in the Last Year: Not on file Transportation Needs: ??? Lack of Transportation (Medical): Not on file ??? Lack of Transportation (Non-Medical): Not on file Physical Activity: ??? Days of Exercise per Week: Not on file ??? Minutes of Exercise per Session: Not on file Stress: ??? Feeling of Stress : Not on file Social Connections: ??? Frequency of Communication with Friends and Family: Not on file ??? Frequency of Social Gatherings with Friends and Family: Not on file ??? Attends Zoroastrian Services: Not on file ??? Active Member of Clubs or Organizations: Not on file ??? Attends Club or Organization Meetings: Not on file ??? Marital Status: Not on file Intimate Partner Violence: ??? Fear of Current or Ex-Partner: Not on file ??? Emotionally Abused: Not on file ??? Physically Abused: Not on file ??? Sexually Abused: Not on file Allergies Allergen Reactions ??? Miguel A Inhibitors Cough Reaction: Cough, ? ? Vicodin [Hydrocodone-Acetaminophen] Nausea & Vomiting Current Outpatient Medications on File Prior to Visit Medication Sig Dispense Refill ??? albuterol HFA (PROAIR HFA) 90 mcg/actuation inhaler inhale 2 puff by inhalation route every 4 -6 hours as needed 1 Inhaler 1 ??? riOAVDRkpz-gaygtubqq-uspmuueta (EXFORGE HCT) 5-160-12.5 mg tablet Take 1 tablet by mouth daily 90 tablet 3 ??? aspirin 81 mg chewable tablet chew 1 tablet by oral route every day 0 0 ??? calcium carbonate (OS-PINEDA) 1,500 mg (600 mg of elemental calcium) tablet Take 1 tablet (1,500 mg total) by mouth daily. 30 tablet 0 ??? cholecalciferol (VITAMIN D-3) 5,000 unit tablet Take 1 tablet (5,000 Units total) by mouth daily. 90 tablet 0 ??? fluorouraciL (EFUDEX) 5 % cream Apply topically 2 (two) times a day For 6 weeks 40 g 1 ??? gahselyw-ull-jrymt-vit K-lycop (ONE-A-DAY MEN'S MULTIVITAMIN) 400-20-300 mcg tablet Take one bymouth one time per day 0 0 ??? simvastatin (ZOCOR) 40 mg tablet TAKE ONE TABLET BY MOUTH ONCE DAILY IN THE EVENING (Patient not taking: Reported on 05/28/2020) 90 5 ??? tamsulosin (FLOMAX) 0.4 mg capsule,extended release 24hr take 1 capsule by oral route every day1/2 hour following the same meal each day 0 0 No current facility-administered medications on file prior to visit. Review of Systems: A full review of system was obtained, reviewed, and scanned into the chart. Physical Exam: There were no vitals taken for this visit. Gen: NAD, A&O x3 Pulm: unlabored CV: regular rate Skin: Charles Type 2. A 9 x 9 mm lesion is noted in the lateral aspect of the right cheek. The biopsy site is well healed. We there is no active ulceration or hemorrhage. There is good skin laxity. There is no other surrounding lesions of concern. Diagnostic Review: I personally reviewed the results of a shave biopsy specimen dated July 19, 2021. This shows the basal cell carcinoma, nodular type of the right cheek. The lesion extends to both the peripheral and the deep margin.. Assessment and Plan: 80 y.o. male who presents with a newly diagnosed basal cell carcinoma of the right cheek. I reviewed the findings with the patient at length. I explained the differences between the common cutaneous malignancies and how this diagnosis differs from the others. My goal is to excise the lesion in question with a healthy margin of tissue. I explained that despite a healthy margin, there is a chance of a positive margin. I explained that the final pathology will ultimately determine the final diagnosis as well as need for further procedures. The patient verbalizes understanding of this. The resulting defect will require reconstruction. We reviewed the reconstruction options, includingprimary closure, skin graft, local tissue rearrangement, or distant flaps. Based on the surroundingtissue, I believe this will best be accomplished by complex repair. The patient verbalizes understanding of this. I described the risks and rationale of surgical treatment, including, but not limited to, bleeding,infection, pain, scarring, incomplete excision, need for re-excision, injury to surrounding structures, wound dehiscence, delayed wound healing, and need for further surgery. All questions were answered. The patient verbalized understanding and wished to proceed. I recommended that regardless of the outcome, the patient undergo full body skin checks by Dr. Ordoñez. We will plan to proceed with wide local excision of basal cell carcinoma of the right cheek with 4 mm margins. We will reconstruct the defect by complex repair. This will be done in the clinic under local anesthesia. We will schedule accordingly. Pt may call back with any questions or concerns in the interim. I spent 30 minutes on this patient encounter which included review of medical records. Over half the time was spent with the patient face to face discussing the treatment plan, counseling and coordinating care. Patricia Donato MD 08/26/21 9:04 AM This document was transcribed using voice recognition software without a human continuous mining machine operator. Itmay contain typographical, grammatical, and/or syntax errors. documented in this encounter Plan of Treatment Not on file documented as of this encounter Visit Diagnoses Diagnosis 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- Primary documented in this encounter Care Teams Machine Repairer Relationship Specialty Start Date End Date Cassius London MD [address] [place] [address] PCP - General 02/06/17 documented as of this encounter
--- OUTSIDE RECORDS SUMMARY | 2024-10-26 01:17 | XMS_ITS | Encounter Summary ---
Author Organization [facility] Address [address] [place] [address] Care Team Providers Care Grill Attendant Name Role Phone Cassius London MD Primary Care Provider + Encounter Details Date Type Department Care Team (Late st Contact Info) Description 01/04/2021 Telephone [facility] [address] [place] [id number] Vandana Aguirre [address] Social History Tobacco Use Types Packs/Day Years Used Date Smoking Tobacco: Former Cigarettes Q uit: 2012 Smokeless Tobacco: Never Alcohol Use Standard Drinks/Week Comments No 0 (1 standard drink = 0.6 oz pur e alcohol) Sex and Gender Information Value Date Recorded Sex Assigned at Not on file 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
--- OUTSIDE RECORDS SUMMARY | 2024-10-26 01:17 | XMS_ITS | Encounter Summary ---
Author Organization [facility] Address [address] [facility] [address] [place] [address] Care Team Providers Care Sample Paster Name Role Phone Cassius London MD Primary Care Provider + Encounter Details Date Type Department Care Team (Late st Contact Info) Description 12/26/2021 Orders Only [facility] [address] [facility] [address] [place] [phone] Willie Brown MD [address] [facility] [address] [place] [address] Pre-op testing (Primary Dx) Social History Tobacco Use Types Packs/Day Years Used Date Smoking Tobacco: Former Cigarettes Q uit: 2012 Smokeless Tobacco: Never Alcohol Use Standard Drinks/Week Comments No 0 (1 standard drink = 0.6 oz pur e alcohol) Sex and Gender Information Value Date Recorded Sex Assigned at Not on file 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
--- OUTSIDE RECORDS SUMMARY | 2024-10-26 01:17 | XMS_ITS | Encounter Summary ---
Author Organization [facility] Healthcare Address [facility] [place] [address] Care Team Providers Care Logistics Planning Manager Name Role Phone Cassius London MD Primary Care Provider + Encounter Details Date Type Department Care Team (Late st Contact Info) Description 04/25/2020 8:15 AM CDT Ancillary Procedure [facility] Social History Tobacco Use Types Packs/Day Years Used Date Smoking Tobacco: Former Cigarettes Q uit: 2012 Smokeless Tobacco: Never Alcohol Use Standard Drinks/Week Comments No 0 (1 standard drink = 0.6 oz pur e alcohol) Sex and Gender Information Value Date Recorded Sex Assigned at Not on file 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 us Not In File Miscellaneous IMG CT PROCEDURES Marah l Result [facility] documented in this encounter Visit Diagnoses Not on filedocumented in this encounter Care Teams Logistics Planning Manager Relationship Specialty Start Date End Date Cassius London MD [address] [place] [address] PCP - General 02/06/17 documented as of this encounter
--- OUTSIDE RECORDS SUMMARY | 2024-10-26 01:17 | XMS_ITS | Encounter Summary ---
Author Organization [facility] Healthcare Address [address] [place] [address] Care Team Providers Care Massage Operator Name Role Phone Cassius London MD Primary Care Provider + Reason for Referral * Diagnostic Imaging (Routine) - Closed Specialty Diagnoses / Procedures Referred By Italia valles Referred To Contact Radiology Diagnoses Solitary pulmonary nodule Procedures CT [place] [address] [address] [place] [id number] Phone: tel: fax: [address] [phone] Referral ID Status Reason Start Date Expiration Date Visits Re quested Visits Authorized [id number] Closed 07/12/2021 08/11/2021 1 1 Reason for Visit * Diagnostic Imaging (Routine) - Closed Specialty Diagnoses / Procedures Referred By Italia valles Referred To Contact Radiology Diagnoses Solitary pulmonary nodule Procedures [place] [address] [address] Phone: tel: fax: [address] [phone] Referral ID Status Reason Start Date Expiration Date Visits Re quested Visits Authorized [id number] Closed 07/12/2021 08/11/2021 1 1 Encounter Details Date Type Department Care Team (Latest Contact Info) Description 07/12/2021 10:30 AM CDT - 07/12/2021 11:59 PM CDT Hospital Encounter [facility] Imaging and Radiology [address] [place] [address] [place] [address] [facility] [address] [place] [address] Solitary pulmonary nodule Discharge Disposition: Discharge to [...] on file 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 90 tablet 07/29/2017 [id number] ic-vit K-lycop (ONE-A-DAY MEN'S MULTIVITAMIN) 400-20-300 mcg [...] CONTRAST Schedule Routine, Read Routine (OP Routine) 07/12/2021 11:10 AM CDT Solitary pulmonary nodule documented in this encounter Results * CT Chest WO Contrast (07/12/2021 11:10 AM CDT) Anatomical Region Laterality Modality Body N/A Computed Tomogra phy 07/12/2021 4:11 PM CDT Impressions 07/12/2021 4:11 PM CDT 1. ??New medial right lower lobe pulmonary nodule. ??Suggest follow-up chest CT in 3-6 months. 2. ??Extensive biapical pleural parenchymal thickening. 3. ??Stable medial right upper lobe 7 x 5 mm spiculated nodule since February 2019. ??Continued attention on follow-up imaging is suggested. 4. ??Moderate centrilobular emphysematous changes. 5. ??Prominent peripherally based interlobular septal thickening with adjacent groundglass attenuation and basilar predominance is suggestive of nonspecific interstitial pneumonia pattern. Electronically signed by: Jay Jay Vora II, D.O. Narrative 07/12/2021 4:11 PM CDT EXAMINATION: ??Computed tomography of the chest without intravenous contrast HISTORY: Lung nodule. TECHNIQUE: ??Transaxial computed tomographic images of the chest were obtained without intravenous contrast according to the standard protocol. COMPARISON: 01/07/2021, 06/28/2020, and 01/05/2020. FINDINGS: ?? Extensive biapical pleural thickening is redemonstrated bilaterally and does not appear appreciably changed on multiple recent prior examinations. ??There is a medial right lower lobe 4 mm pulmonary nodule which appears more conspicuous on this examination than prior, table position 328.5. ??Prominent interlobular septal thickening with associated groundglass attenuation is noted in the lung periphery bilaterally and appears most significant in the bilateral lower lobes. ??These findings appear relatively similar to multiple priors and may represent early nonspecific interstitial pneumonia pattern. ?? There is a spiculated medial right upper lobe pulmonary nodule measuring approximately 7 x 5 mm, which appears stable in appearance since February 2019. Moderate centrilobular emphysematous changes are redemonstrated. Thoracic inlet structures are unremarkable. ??Atherosclerotic calcifications are demonstrated in the aorta and coronary arteries. No pericardial effusion. ??Subcentimeter lymph nodes are seen throughout the mediastinum and appear unchanged from prior. Calcified granulomas are demonstrated in the spleen. No suspicious lytic or sclerotic lesions. Procedure Note Jay Jay Vora II, DO - 07/12/2021 EXAMINATION: Computed tomography of the chest without intravenous contrast HISTORY: Lung nodule. TECHNIQUE: Transaxial computed tomographic images of the chest were obtained without intravenous contrast according to the standard protocol. COMPARISON: 01/07/2021, 06/28/2020, and 01/05/2020. FINDINGS: Extensive biapical pleural thickening is redemonstrated bilaterally and does not appear appreciably changed on multiple recent prior examinations. There is a medial right lower lobe 4 mm pulmonary nodule which appears more conspicuous on this examination than prior, table position 328.5. Prominent interlobular septal thickening with associated groundglass attenuation is noted in the lung periphery bilaterally and appears most significant in the bilateral lower lobes. These findings appear relatively similar to multiple priors and may represent early nonspecific interstitial pneumonia pattern. There is a spiculated medial right upper lobe pulmonary nodule measuring approximately 7 x 5 mm, which appears stable in appearance since February 2019. Moderate centrilobular emphysematous changes are redemonstrated. Thoracic inlet structures are unremarkable. Atherosclerotic calcifications are demonstrated in the aorta and coronary arteries. No pericardial effusion. Subcentimeter lymph nodes are seen throughout the mediastinum and appear unchanged from prior. Calcified granulomas are demonstrated in the spleen. No suspicious lytic or sclerotic lesions. IMPRESSION: 1. New medial right lower lobe pulmonary nodule. Suggest follow-up chest CT in 3-6 months. 2. Extensive biapical pleural parenchymal thickening. 3. Stable medial right upper lobe 7 x 5 mm spiculated nodule since February 2019. Continued attention on follow-up imaging is suggested. 4. Moderate centrilobular emphysematous changes. 5. Prominent peripherally based interlobular septal thickening with adjacent groundglass attenuation and basilar predominance is suggestive of nonspecific interstitial pneumonia pattern. Electronically signed by: Jay Jay Vora II, D.O. Andrey Uribe MD IMG CT PROCEDURES Marah l Result documented in this encounter Visit Diagnoses Diagnosis Solitary pulmonary nodule documented in this encounter Care Teams Massage Operator Relationship Specialty Start Date End Date Cassius London MD [address] [place] [address] PCP - General 02/06/17 documented as of this encounter
--- OUTSIDE RECORDS SUMMARY | 2024-10-26 01:17 | XMS_ITS | Encounter Summary ---
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 Patricia Donato MD [address] [facility] [phone] [place] [address] Phone: tel: fax: [facility] (All Locations) Referral ID Status Reason Start Date Expiration Date V isits Requested Visits Authorized [id number] Closed Specialty Services Required 01/17/2022 01/12/2023 12 12 Question Answer Please select the performing region: [facility] (All Locations) [167] # of visits: 1 OMER SERVICE OFFICER Reason for Visit * Reason Comments Follow-up * Consultation (Routine) - Closed Specialty Diagnoses / Procedures Referred By Italia valles Referred To Contact Plastic Surgery Diagnoses 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 Patricia Donato MD [address] [facility] [phone] [place] [address] Phone: tel: fax: [facility] (All Locations) Referral ID Status Reason Start Date Expiration Date V isits Requested Visits Authorized [id number] Closed Specialty Services Required 01/17/2022 01/12/2023 12 12 Encounter Details Date Type Department Care Team (Late st Contact Info) Description 01/17/2022 9:00 AM CUSTOMER SERVICE OFFICER Office Visit [facility] Surgery [address] [place] [address] [address] [place] [phone] Patricia Donato MD [address] [phone] [place] [address] 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 He is status post wide local excision of basal cell carcinoma the right cheek with complex repair. Overall he is doing well. He denies any pain. He denies any drainage. He has no complaints with his appearance. Overall he is doing well. O: There were no vitals taken for this visit. Gen: NAD, A&O x3 Right cheek: Incision is well healed. There is no evidence of infection. There is good animation. Cranial nerves 5 and 7 are intact symmetrically and bilaterally. Minimal scarring noted. A/P: 81 y.o. male status post wide local excision basal cell carcinoma right cheek with complex repair. Overall the patient has done very well. The incision is healed with minimal scarring. There is no evidence of infection. I reminded the patient that the scar will take 6 months to 1 year to fully mature and advised to continue applying sun screen if outside. 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 Overall he has healed very nicely. I am happy to see him back if any new issues should arise. Thepatient verbalized understanding and agreement with this plan. All questions were answered. Follow up: As needed Restriction: none I spent 15 minutes on this patient encounter which included review of medical records. Over half the time was spent with the patient face to face discussing the treatment plan, counseling and coordinating care. Patricia Donato MD 01/17/22 9:46 AM This document was transcribed using voice recognition software without a human laborer adjustable steel joist. Itmay contain typographical, grammatical, and/or syntax errors. 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
--- OUTSIDE RECORDS SUMMARY | 2024-10-26 01:17 | XMS_ITS | Encounter Summary ---
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 Gender Identity Not on file Sexual Orientation Not on file documented as of this encounter Last Filed Vital Signs Vital Sign Reading Time Taken Comments Blood Pressure 130/47 01/24/2022 2:34 PM CDT Pulse 100 01/24/2022 2:34 PM CDT Temperature 36.6 ??C (97.9 ??F) 01/24/2022 2:34 PM CD T Respiratory Rate 18 01/24/2022 2:34 PM CDT Oxygen Saturation 91% 01/24/2022 2:34 PM CDT Inhaled Oxygen Concentration - - Weight 85.6 kg (188 lb 11.4 oz) 01/24/2022 6:29 AM CDT Height 171.5 cm (5' 7.5 ) 01/24/2022 6:29 AM CDT Body Mass Index 29.12 01/24/2022 6:29 AM CDT documented in this encounter Discharge Diagnoses Diagnosis Unilateral inguinal hernia, without obstruction or gangrene, not specified as recurrent - UNILATERAL INGUINAL HERNIA, WITHOUT OBSTRUCTION OR GANGRENE, NOT SPECIFIED RECURRENT 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) - PNEUMOCONIOSIS DUE TO ASBESTOS AND OTHER MINERAL FIBERS Chronic obstructive pulmonary disease, unspecified (HCC) - CHRONIC OBSTRUCTIVE PULMONARY DISEASE, UNSPECIFIED Essential (primary) hypertension - ESSENTIAL (PRIMARY) HYPERTENSION Unspecified essential hypertension Mixed hyperlipidemia - MIXED HYPERLIPIDEMIA Personal history of nicotine dependence - PERSONAL HISTORY OF NICOTINE DEPENDENCE [facility] (current) use of aspirin - INDUSTRIAL RELATIONS REPRESENTATIVE (CURRENT) USE OF ASPIRIN Family history of malignant neoplasm of trachea, bronchus and lung - FAMILY HISTORY OF MALIGNANT NEOPLASM OF TRACHEA, BRONCHUS AND LUNG Family history of malignant neoplasm of trachea, bronchus, and lung Personal history of malignant neoplasm of prostate [...] Care Everywhere. * General Anesthesia (Discharge Care) (Togolese) * Tramadol (By mouth) (Togolese) * Laxative, Stimulant Combination (By mouth) (Togolese) * Inguinal Hernia Repair (Discharge Care) (Togolese) documented in this encounter Medications at Time [...] (10 mg total) by mouth nightly 09/09/2021 [id number]-[id number]-[id number] ic-vit K-lycop (ONE-A-DAY MEN'S MULTIVITAMIN) 400-20-300 mcg [...] ??? montelukast (SINGULAIR) 10 mg tablet ??? suliopgs-aok-wkyfm-vit K-lycop (ONE-A-DAY MEN'S MULTIVITAMIN) 400-20-300 mcg tablet [...] OF : 1940 SURGEON: Willie Brown MD PUBLIC WORKS TECHNICIAN:Supervisor Sewing Room: Julia New RN Physician Assignment Manager: Sherrill Lewis NP Scrub: Genie Wong ST MANAGER MULTICULTURAL: Chapis Castle RN DATE OF SURGERY: 01/24/2022 PREOP DIAGNOSES: Left inguinal hernia POSTOP DIAGNOSES: Indirect left inguinal hernia PROCEDURE: 1. Robot assisted left inguinal hernia repair with Pro Core Driller mesh INDICATIONS OF PROCEDURE: The patient is [...] that you and your doctor have chosen [facility] for your surgery. We hope that the [...] mcg inhaler ?? Use no make-up, nail tanzanian, lotions, oils or powders on your skin. [...] Imm gran pct 0.2 % [facility] ([place]) Comment: [...] revised on 2018. Monocyte pct 6.5 % [facility] ([place]) Comment: Interpretive Data [...] 7:08 AM CDT 01/24/2022 7:11 AM CDT us Willie Brown MD LAB BLOOD ORDERA BLES Final Result [facility] ([place]) 1 [facility] Department [place] [address] * Antibody screen (01/24/2022 7:08 AM CDT) Spencre, indirect, Gel Interpretation Negative ABSC [facility] ([place]) Blood 01/24/2022 7:08 AM CDT 01/24/2022 7:11 AM CDT Narrative [facility] ([place]) - 01/24/2022 7:55 AM CDT Has the patient had Daratumumab or Isatuximab in the past 6 months?->Unknown Willie Brown MD LAB BLOOD BANK T EST ORDERABLES Final Result Performing Organization Address [facility] Co de Phone Number [facility] ([place]) [address] [facility] [place] [employer] [place] [address] * ABO/Rh (01/24/2022 7:08 AM CDT) Pathologist [facility] ABO/Rh A Positive [facility] ([place]) Blood 01/24/2022 7:08 AM CDT 01/24/2022 7:11 AM CDT Narrative [facility] ([place]) - 01/24/2022 7:55 AM CDT Has the patient had Daratumumab or Isatuximab in the past 6 months?->Unknown Willie Brown MD LAB BLOOD BANK T EST ORDERABLES Final Result Performing Organization Address [facility] de Phone Number [facility] ([place]) 1 [facility] [place] [place] [address] * (ABNORMAL) CBC with auto differential (01/24/2022 7:08 AM CDT) Pathologist [facility] WBC 8.7 3.8 - 9.9 K/cumm [facility] ([place]) Hgb 12.9(L) 13.0 - 17.5 g/dL [facility] ([place]) Hct 38.0(L) 38.9 - 50.3 % [facility] ([place]) Plt 218 150 - 400 K/cumm [facility] ([place]) MPV 9.5 9.1 - 12.3 fL [facility] ([place]) RBC 3.95(L) 4.30 - 5.80 M/cumm [facility] ([place]) MCV 96.2 81.3 - 96.4 fL [facility] ([place]) MCH 32.7 27.1 - 33.3 pg [facility] ([place]) MCHC 33.9 32.3 - 35.7 g/dL [facility] ([place]) RDW CV 13.2 11.1 - 14.9 % [facility] ([place]) RDW SD 46.5 35.7 - 48.1 fL [facility] ([place]) NRBC abs 0.00 0.00 - 0.01 K/cumm [facility] ([place]) Blood 01/24/2022 7:08 AM CDT 01/24/2022 7:11 AM CDT us Willie Brown MD LAB BLOOD ORDERA BLES Final Result Performing Organization Address City/[facility] Co de Phone Number [facility] ([place]) [address] [place] [address] [place] [address] * Potassium, whole blood (01/24/2022 7:08 AM CDT) Potassium, bld 4.0 3.3 - 4.9 mmol/L [facility] ([place]) Comment: Interpretive Data Unable to assess hemolysis. ??Invitro hemolysis causes falsely elevated potassium. Current Interpretive Data was last revised on 2020. Blood 01/24/2022 7:08 AM CDT 01/24/2022 7:11 AM CDT us Eliud Sandy MD LAB BLOOD ORDERABLES Fin al Result Performing Organization Address City/[facility]/ZIP Co de Phone Number [facility] ([place]) 1 [facility] [place] [address] documented in this encounter Visit Diagnoses Diagnosis [...] MAR Action Action Date Dose Rate Site dextrose 5% and Lactated Ringer's infusion 50 [...] by drowsiness. Given 01/24/2022 11:29 AM CDT 1 0 mg prochlorperazine (COMPAZINE) injection 5 mg 5 mg, intravenous, Administer over 2 Minutes, Once, On Thu01/24/22 at 1345, For 1 dose Given 01/24/2022 1:10 PM CDT 5 m g documented in this encounter Discontinued Medications Medication [...] Braydon Henriquez CRNA)0801 (Paused - Provider: Braydon Henriquez CRNA - Comment: Switch to gravity)0802 (Restarted - Provider: Braydon Henriquez CRNA)0955 (New Bag - Provider: Braydon Henriquez CRNA)191 (Due: Stopped) Lactated Ringer's (LR) infusion [...] Count Last Ordered Date First Ordered Date bupivacaine (MARCAINE) 0.5 % (5 mg/mL) preservative free injection 1 01/24/2022 bupivacaine-EPINEPHrine (MAR BETTINA with EPI) 0.25 %-1:200,000 preservative free injection [...] chloride 0.9% flush 0.5-20 mL 1 01/07 sodium chloride 0.9% irrigation 1 2 traMADoL (ULTRAM) tablet 25 mg 1 01/24/2022 documented in this encounter Care Teams Carton Catcher Relationship Specialty Start Date End Date Cassius London MD [address] [place] [address] PCP - General 02/06/17 documented as of this encounter
--- OUTSIDE RECORDS SUMMARY | 2024-10-26 01:17 | XMS_ITS | Encounter Summary ---
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 [employer]- Referral printed and faxed to the number given documented in this encounter Plan of Treatment Not on file documented as of this encounter Visit Diagnoses Not on filedocumented in this encounter Care Teams Latin American Studies Director Relationship Specialty Start Date End Date Cassius London MD [address] [place] [place] [address] PCP - General 02/06/17 documented as of this encounter
--- OUTSIDE RECORDS SUMMARY | 2024-10-26 01:17 | XMS_ITS | Encounter Summary ---
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 Procedures Exc Lesion Face/Ears/Eyelids/Nose/Lip s & Potential Closure Patricia Donato MD [address] [facility] [phone] [place] [address] Phone: tel: fax: [facility] (All Locations) Referral ID Status Reason Start Date Expiration Date Visits Re quested Visits Authorized [id number] Closed 12/06/2020 12/01/2021 10 10 Encounter Details Date Type Department Care Team (Late st Contact Info) Description 10/09/2021 11:00 AM GROCERY STORE COURTESY CLERK Procedure visit [facility] [address] [place] [address] [address] [place] [address] [phone] Patricia Donato MD [address] [facility] [phone] [place] [address] 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 Social History Tobacco Use Types Packs/Day Years Used Date Smoking Tobacco: Former Cigarettes Q uit: 2012 Smokeless Tobacco: Never Alcohol Use Standard Drinks/Week Comments No 0 (1 standard drink = 0.6 oz pur e alcohol) Sex and Gender Information Value Date Recorded Sex Assigned at Not on file Legal Sex Male 1:17 PM GROCERY STORE COURTESY CLERK Gender Identity Not on file Sexual Orientation Not on file documented as of this encounter Procedure Notes * Patricia Donato MD - 10/09/2021 11:00 AM CST Procedures Plastic, Reconstructive, and Hand Surgery Operative Note Patient: Clarita Juan : 1940 Date of Surgery: 10/09/21 Preoperative Diagnosis: Basal cell carcinoma Right cheek Postoperative Diagnosis: Same Procedure Performed: 1. Wide local excision basal cell carcinoma right cheek, 1.7 cm 2. Complex repair right cheek, 7.8 cm Attending Surgeon: Patricia Donato MD Anesthesia: Local Turcios Findings: Wide local excision of basal cell carcinoma with 4 mm margins Estimated Blood Loss: <5 mL Drains: none Implants: none Complications: none Specimens: Wide local excision basal cell carcinoma, short stitch superomedial, long stitch lateral Indications for Procedure: Clarita Juan is a 80 y.o. male who presented to my clinic over 1 month ago. Had a new lesion on his right cheek that was biopsied by his set up mechanic and resulted as basal cell carcinoma. He presented to my clinic for further evaluation. I recommended excision. Risks and rationale for this procedure were explained to him at length and he agreed to proceed. Procedure in Detail: The patient was seen in the procedure room. The procedure site was verified with the patient. Informed consent was obtained. The patient was then positioned, prepped, and draped in sterile fashion. A time-out procedure was then performed, where the patient was properly identified and there was verification of the procedure to be performed. The lesion in question was identified on his right cheek. This measured 9 mm in diameter. 4 mm margin was marked out for a total excision diameter of 1.7 cm. There was adequate redundancy of the skinand soft tissue of his cheek and therefore a lenticular excision was marked out following the linesof natural skin tension and facial animation. The area was then infiltrated with 12 mL of a solution of 2% lidocaine with epinephrine, 0.5% bupivacaine, and sodium bicarbonate. After adequate anesthesia was obtained, 15. Blade scalpel was used to incise along the markings. Dissection was carried down through the skin and subcuticular tissue. The deep fascia was not violated. The lesion was then el evated in the subcutaneous plane in its entirety. It was marked short stitch superomedial and long stitch lateral. The specimen was then passed off the field for permanent sectioning. The wound bed was then made hemostatic using hyfrecator. Undermining was then performed using tenotomy scissors to allow for tension-free closure. The wound was irrigated copiously until the effluent was clear. Hemostasis was again excellent. Wound was then reapproximated in multiple layers using 4-0 Monocryl suture for the deep tissue, followed by 4-0 Monocryl suture in deep dermal fashion, followed by 5-0 Monocryl suture in running subcuticular fashion. Total length of this repair was 7.8 cm. Needle, instrument, and sponge count was correct at this time. Sterile dressings were applied, consisting of brown paper tape. Patient tolerated the procedure in its entirety without complication. The patient is to be discharged home in stable condition when criteria met. The patient was given specific wound care instructions and precautions and will follow up with me in 1 week. Post-operative Plan: Stable, to home. Follow up: 1 week Restrictions: Keep head of bed elevated., no heavy lifting or strenuous activity, no bending at thewaist. Attestation of Presence: I was present for the entirety of the procedure. Patricia Donato MD 10/09/21 11:04 PM Payor: [employer] MEDICARE / Plan: [employer] CHOICE PPO / Product Type: MEDICARE RISK OTHER / This document was transcribed using voice recognition software without a human boat canvas installer. Itmay contain typographical, grammatical, and/or syntax errors. 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 SEX: ??M ? : ??1940 (Age: 80) ? Specimen Information: COLLECTED: ??10/09/2021 ? RECEIVED: ??10/10/2021 ? REPORTED: ??10/14/2021 ? Submitting Physician Information: Brooke Haines, [address] Medical Office Building [address], [address] [place] [address] ??[id number], ? DERMATOPATHOLOGY REPORT RESULTS ?? DIAGNOSIS: SKIN, RIGHT CHEEK, EXCISION: ? SCAR FROM A PREVIOUS PROCEDURE ? Note: There is no evidence of a basal cell carcinoma in these sections. ??There is also an incidental dermal melanocytic nevus not associated with the scar. cad1/lpd By this signature, I attest that the above diagnosis is based upon my personal examination of the slides(and/or other material indicated in the diagnosis). Justin Swanson M.D. ?? Report Electronically Reviewed and Signed Out By ??Justin Swanson M.D. 10/14/2021 12:47:03 CLINICAL INFORMATION PATH DX BCC. SPECIMEN DATA MICROSCOPIC DESCRIPTION: There is a proliferation of fibroblasts aligned parallel to the skin surface interposed among linearly arranged, thickened collagen bundles and small blood vessels. ?? There are uniform nests, cords and strands of small, monomorphous melanocytes within the dermis. (L90.5, D22.9) GROSS DESCRIPTION: Received in a formalin-containing bottle is an elliptical piece of pale mg, finely scaling, hair-bearing skin and adipose tissue measuring 5.7 by 1.6 by 0.3 cm. ??Two orienting sutures are present. ??The long suture is placed in the lateral position, and the short suture is place in the superior medial position. ??The 12:00-6:00 surgical margin is inked black. ??The 6:00-12:00 surgical margin is inked blue. ??The specimen is sectioned into 23 pieces and submitted in 12 cassettes. ??The 12:00 tip is submitted in the first cassette. ??The opposite tip is submitted in the second cassette. ??The tips are tagged orange for orienting purposes. ??Due to shrinkage, measurements may be different than those at time of procedure. ??Due to the nature of the specimen, extended processing is required. mn/bms The Characteristics of some immunohistochemical and immunofluorescence stains as well as in-situ hybridization tests were determined by the [facility] in ongoing quality assurance lead and in compliance with regulations drawn from the Clinical Laboratory Improvement Act of 1988 (CLIA '88). These tests may rely on the use of analyte specific reagents that are subject to specific labeling requirements by the US FDA, and may only be performed in a facility that is certified by the [facility] as a high-complexity laboratory under CLIA '88. ??These tests are used for clinical purposes and are not investigational. ??For lab developed tests, the validation has been reviewed; the performance is considered acceptable for patient testing. 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 montelukast (SINGULAIR) 10 mg tablet Take 1 tablet (10 mg total) by mouth nightly 09/09/2021 irbesartan-hydro chlorothiazide (AVALIDE) 150-12.5 mg per tablet 07/16/2021 3 Trelegy Ellipta 100-62.5-25 mcg inhaler TAKE 1 INHALATION BY MOUTH DAILY 08/28/2021 3 amLODIPine (NORVASC) 5 mg tablet 07/16/2021 1 added in this encounter Orders Procedures Count Last Ordered Date First Orde red Date EXC LESION FACE/EARS/EYELIDS /NOSE/LIPS & POTENTIAL CLOSURE 1 10/09/2021 documented in this encounter Care Teams Calculating Machine Mechanic Relationship Specialty Start Date End Date Cassius London MD [address] [place] [address] PCP - General 02/06/17 documented as of this encounter
--- OUTSIDE RECORDS SUMMARY | 2024-10-26 01:17 | XMS_ITS | Encounter Summary ---
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 Talked with Ol[facility] insurance account representative who states that her records show we are out of network. We had initially been told the claim was denied because there wasno referral from patients PCP. That referral was faxed to [facility] on 02/28/22. Olga advised we could re-send medical records showing medical necessity for the surgery and they could re-process the claim. All pertinent medical records were faxed to [facility] at and addressed to [facility] Home Health Administrator as requested. Claim #[id number] Call ref # [id number] documented in this encounter Plan of Treatment Not on file documented as of this encounter Visit Diagnoses Not on filedocumented in this encounter Care Teams Ladle Mechanic Relationship Specialty Start Date End Date Cassius London MD [address] [place] [address] PCP - General 02/06/17 documented as of this encounter
--- OUTSIDE RECORDS SUMMARY | 2024-10-26 01:17 | XMS_ITS | Encounter Summary ---
Author Organization [facility] Address [address] [place] [address] Care Team Providers Care Datastage Consultant Name Role Phone Cassius London MD Primary Care Provider + Encounter Details Date Type Department Care Team (Late st Contact Info) Description 09/25/2020 Telephone [facility] [address] [place] [id number] Santiago Lowery, RT Social History Tobacco Use Types Packs/Day Years Used Date Smoking Tobacco: Former Cigarettes Q uit: 2012 Smokeless Tobacco: Never Alcohol Use Standard Drinks/Week Comments No 0 (1 standard drink = 0.6 oz pur e alcohol) Sex and Gender Information Value Date Recorded Sex Assigned at Not on file Legal Sex Male 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 PM FLATBED STITCHER Gender Identity Not on file Sexual Orientation Not on file documented as of this encounter Plan of Treatment Not on file documented as of this encounter Visit Diagnoses Not on filedocumented in this encounter Additional Health Concerns Infection Onset Date Last Indicated Resolved Time COVID: Suspected 01/10/2023 01/10/2023 01/10/2023 1:18 PM FLATBED STITCHER COVID: Suspected 01/19/2024 01/19/2024 01/19/2024 10:16 PM CDT documented as of this encounter Care Teams Datastage Consultant Relationship Specialty Start Date End Date Cassius London MD [address] [place] [address] PCP - General 02/06/17 documented as of this encounter
--- OUTSIDE RECORDS SUMMARY | 2024-10-26 01:17 | XMS_ITS | Encounter Summary ---
Author Organization [facility] Address [address] [place] [address] Care Team Providers Care Survey Party Chief Name Role Phone Cassius London MD Primary Care Provider + Reason for Referral * MRI/CAT/PET Scan (Routine) - Closed Specialty Diagnoses / Procedures Referred By Italia t Referred To Contact Radiology Diagnoses Solitary pulmonary nodule Procedures [place] [address] [address] Phone: tel: fax: [address] [phone] Referral ID Status Reason Start Date Expiration Date Visits Re quested Visits Authorized [id number] Closed 12/19/2021 01/18/2022 1 1 L INSTALLER Reason for Visit * MRI/CAT/PET Scan (Routine) - Closed Specialty Diagnoses / Procedures Referred By Contac t Referred To Contact Radiology Diagnoses Solitary pulmonary nodule Procedures [place] [address] [address] [address] Phone: tel: fax: [address] [phone] Referral ID Status Reason Start Date Expiration Date Visits Re quested Visits Authorized [id number] Closed 12/19/2021 01/18/2022 1 1 Encounter Details Date Type Department Care Team (Latest Contact Info) Description 01/16/2022 10:58 AM VINYL INSTALLER - 01/16/2022 11:59 PM VINYL INSTALLER Hospital Encounter [facility] [address] [place] [address] [place] [address] [address] [facility] [address] [place] [address] Solitary pulmonary nodule Discharge Disposition: Discharge to [...] on file Legal Sex Male 1:17 PM VINYL INSTALLER Gender Identity Not on file Sexual Orientation [...] (10 mg total) by mouth nightly 09/09/2021 wpcxxunp-qqm-enr ic-vit K-lycop (ONE-A-DAY MEN'S MULTIVITAMIN) 400-20-300 mcg [...] (AVALIDE) 150-12.5 mg per tablet 07/16/2021 3 simvastatin (ZOCOR) 40 mg tablet TAKE [...] CONTRAST Schedule Routine, Read Routine (OP Routine) 01/16/2022 11:30 AM VINYL INSTALLER Solitary pulmonary nodule documented in this encounter Results * CT Chest WO Contrast (01/16/2022 11:30 AM VINYL INSTALLER) Anatomical Region Laterality Modality Body N/A Computed Tomogra phy 01/16/2022 7:43 PM VINYL INSTALLER Narrative 01/16/2022 7:50 PM VINYL INSTALLER EXAM DESCRIPTION: ?? CT CHEST WO CONTRAST REASON FOR STUDY: ?? pulminary nodule follow-up, F/u on lung nodules diagnosed around 2016, no current chest complaint, history of right breast lumpectomy ?? TECHNIQUE: CT scan of the chest performed without intravenous contrast using helical scanning technique. Reconstructed coronal and sagittal MPR images reviewed. ??All images stored on PACS. ??Automated exposure control was used as a dose optimization technique for this examination. COMPARISON: ?? CT 07/12/2021 FINDINGS: The sensitivity for detection of solid visceral lesions is diminished without the use of intravenous contrast. LUNGS: ?? Apical pleural thickening and parenchymal pulmonary scarring appears stable. ?? Mild to moderate centrilobular and paraseptal pulmonary emphysema. ?? Areas of scarring bilaterally with interstitial thickening appears stable. ??7 mm right upper lobe pulmonary nodule appears stable. ??A 4 mm nodule in the right lower lobe appears stable. ??No new pulmonary nodules or masses. There are benign calcified pulmonary granulomas. PLEURA: ?? No effusion. No pneumothorax. MEDIASTINUM/KRISTYN: ?? No identified masses or abnormal nodes. HEART: ?? Heart size is normal with no pericardial effusion. VASCULATURE: ?? Mild atheromatous vascular calcifications. AXILLA: ?? No adenopathy. CHEST WALL: ?? No masses. ??No subcutaneous air. HARDWARE/LINES/TUBES: ?? None. UPPER ABDOMEN: ?? Partially visualized renal cysts. ?? Colonic diverticulosis. MUSCULOSKELETAL: ?? No significant abnormality. OTHER: ?? No other significant abnormality. IMPRESSION: ?? No significant change. Pulmonary emphysema and areas of scarring bilaterally stable. 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 ??Small pulmonary nodules appear stable. ??Recent guidelines by the Fleischner Society (Radiology 940240,2017) divides patient into low vs. high risk (for example, patients who smoke are considered high risk) and provides followup recommendations as follows: SOLITARY PULMONARY NODULE: Patients considered LOW RISK for lung cancer and a solitary nodule larger than 8 mm in diameter, consider CT at 3 months, PET/CT, or tissue sampling. ??In patients at HIGHER RISK, for example smokers, consider CT at 3 months, PET/CT, or tissue sampling. MULTIPLE PULMONARY NODULES: Patients considered LOW RISK for lung cancer and multiple nodules larger than 8 mm in diameter require follow-up CT at 3-6 months, then consider CT at 18-24 months. ??In patients at HIGHER RISK, for example smokers, require follow-up CT at 3-6 months, then CT at 18-24 months. Note: These recommendations do not apply to lung cancer screening, patients with immunosuppression, or patients with known primary cancer. http://pubs.rsna.org/doi/pdf/10.1148/radiol.6652362233 THIS IS AN ELECTRONICALLY VERIFIED FINAL REPORT 01/16/2022 7:50 PM - Electronically signed by ??Win Lo M.D. RW: LIZ D: ??01/16/2022 7:50 PM T: ??01/16/2022 7:50 PM Report ID: [id number] Reading Location: ??[id number] Procedure Note Win Lo MD - 01/16/2022 EXAM DESCRIPTION: CT CHEST WO CONTRAST REASON FOR STUDY: pulminary nodule follow-up, F/u on lung nodules diagnosed around 2016, no current chest complaint,history of right breast lumpectomy TECHNIQUE: CT scan of the chest performed without intravenous contrastusing helical scanning technique. Reconstructed coronal and sagittal MPR images reviewed. All images stored on PACS. Automated exposure control was usedas a dose optimization technique for this examination. COMPARISON: CT 07/12/2021 FINDINGS: The sensitivity for detection of solid visceral lesions is diminishedwithout the use of intravenous contrast. LUNGS: Apical pleural thickening and parenchymal pulmonary scarringappears stable. Mild to moderate centrilobular and paraseptal pulmonaryemphysema. Areas of scarring bilaterally with interstitial thickening appears stable.7 mm right upper lobe pulmonary nodule appears stable. A 4 mm nodule in the right lower lobe appears stable. No new pulmonary nodules or masses. There are benign calcified pulmonary granulomas. PLEURA: No effusion. No pneumothorax. MEDIASTINUM/KRISTYN: No identified masses or abnormal nodes. HEART: Heart size is normal with no pericardial effusion. VASCULATURE: Mild atheromatous vascular calcifications. AXILLA: No adenopathy. CHEST WALL: No masses. No subcutaneous air. HARDWARE/LINES/TUBES: None. UPPER ABDOMEN: Partially visualized renal cysts. Colonicdiverticulosis. MUSCULOSKELETAL: No significant abnormality. OTHER: No other significant abnormality. IMPRESSION: No significant change. Pulmonary emphysema and areas of scarring bilaterally stable. Possiblemild UIP in the lung bases, stable. Small pulmonary nodules appear stable. Recent guidelines by the Fleischner Society (Radiology 139875,2017)divides patient into low vs. high risk (for example, patients who smoke areconsidered high risk) and provides followup recommendations as follows: SOLITARY PULMONARY NODULE: Patients considered LOW RISK for lung cancerand a solitary nodule larger than 8 mm in diameter, consider CT at 3 months,PET/CT, or tissue sampling. In patients at HIGHER RISK, for example smokers,consider CT at 3 months, PET/CT, or tissue sampling. MULTIPLE PULMONARY NODULES: Patients considered LOW RISK for lung cancerand multiple nodules larger than 8 mm in diameter require follow-up CT at 3-6 months, then consider CT at 18-24 months. In patients at HIGHER RISK, for example smokers, require follow-up CT at 3-6 months, then CT at 18-24months. Note: These recommendations do not apply to lung cancer screening,patients with immunosuppression, or patients with known primary cancer. http://pubs.rsna.org/doi/pdf/10.1148/radiol.0238580562 THIS IS AN ELECTRONICALLY VERIFIED FINAL REPORT 01/16/2022 7:50 PM - Electronically signed by Win Lo M.D. RW: LIZ Report ID: [id number] Reading Location: [id number] Andrey Uribe MD IMG CT PROCEDURES Marah l Result documented in this encounter Visit Diagnoses Diagnosis Solitary pulmonary nodule documented in this encounter Care Teams Survey Party Chief Relationship Specialty Start Date End Date Cassius London MD [address] [place] [address] PCP - General 02/06/17 documented as of this encounter
--- OUTSIDE RECORDS SUMMARY | 2024-10-26 01:17 | XMS_ITS | Encounter Summary ---
Author Organization [facility] Address [address] [place] [address] Care Team Providers Care Cleater Name Role Phone Cassius London MD Primary Care Provider + Reason for Referral * Diagnostic Imaging (Routine) - Closed Specialty Diagnoses / Procedures Referred By Italia valles Referred To Contact Radiology Diagnoses Solitary pulmonary nodule Procedures CT [place] [address] [place] [address] Phone: tel: fax: [address] [address] Referral ID Status Reason Start Date Expiration Date Visits Re quested Visits Authorized [id number] Closed 06/28/2020 07/28/2020 1 1 Reason for Visit * Diagnostic Imaging (Routine) - Closed Specialty Diagnoses / Procedures Referred By Italia valles Referred To Contact Radiology Diagnoses Solitary pulmonary nodule Procedures [place] [address] [address] Phone: tel: fax: [address] [address] Referral ID Status Reason Start Date Expiration Date Visits Re quested Visits Authorized [id number] Closed 06/28/2020 07/28/2020 1 1 Encounter Details Date Type Department Care Team (Latest Contact Info) Description 06/28/2020 10:47 AM CDT - 06/28/2020 11:59 PM CDT Hospital Encounter [facility] Imaging Center [address] [place] [address] [place] [address] [facility] [address] [place] [address] Solitary pulmonary nodule Discharge Disposition: Discharge to [...] on file Legal 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 90 tablet 07/29/2017 [id number] ic-vit K-lycop (ONE-A-DAY MEN'S MULTIVITAMIN) 400-20-300 mcg [...] CONTRAST Schedule Routine, Read Routine (OP Routine) 06/28/2020 11:22 AM CDT Solitary pulmonary nodule documented in this encounter Results * CT Chest WO Contrast (06/28/2020 11:22 AM CDT) Anatomical Region Laterality Modality Body N/A Computed Tomogra phy 06/28/2020 1:32 PM CDT Impressions 06/28/2020 2:00 PM CDT 1. ??Biapical scarring with subpleural densities and nodules, similar in appearance dating back to 04/15/2018. 2. ??Pulmonary emphysema. 3. ??Distal thoracic aortic ectasia. Electronically signed by: Sam Salazar M.D. Narrative 06/28/2020 2:00 PM CDT EXAMINATION: CT CHEST WO CONTRAST ORDERING HEALTHCARE PROVIDER: WES ORNELAS HISTORY: r91.1. F/u SMALL BILATERAL UPPER LOBE PULMONARY NODULES seen on prior CTs 2019 and 2018, patient states he has had a productive cough for 2 months, HX COPD ?? TECHNIQUE: CT scan of the chest without intravenous contrast. Reconstructed coronal and sagittal MPR images reviewed. ??All images stored on PACS. ??Automated exposure control was used as a dose optimization technique for this examination. ?? COMPARISON: CT chest 01/05/2020 FINDINGS: HEART: Normal heart size without pericardial effusion. VASCULATURE: Coronary artery calcifications. ??Scattered calcifications of the thoracic aorta. ??The distal thoracic aorta measures 3.7 cm diameter (axial image 94). MEDIASTINUM/KRISTYN: No identified masses. ??No abnormal lymph nodes by size criteria. LUNGS/PLEURA: Pulmonary emphysema. ??Stable biapical scarring and pleural nodularity, including 12 x 7 mm in the left upper lobe (axial image 29). ??10 mm right upper lobe nodule (axial image 34) and 4 mm left upper lobe subpleural nodule (axial image 38) are stable in size. ??No pleural effusion. ??No pneumothorax. AXILLA: No adenopathy. CHEST WALL: No masses. ??No soft tissue gas. HARDWARE/LINES/TUBES: None. UPPER ABDOMEN: Grossly normal. MUSCULOSKELETAL: No acute findings. OTHER: No other acute abnormality. Procedure Note Sam Salazar MD - 06/28/2020 EXAMINATION: CT CHEST WO CONTRAST ORDERING HEALTHCARE PROVIDER: WES ORNELAS HISTORY: r91.1. F/u SMALL BILATERAL UPPER LOBE PULMONARY NODULES seen on prior CTs 2019 and 2018, patient states he has had a productive cough for 2 months, HX COPD TECHNIQUE: CT scan of the chest without intravenous contrast. Reconstructed coronal and sagittal MPR images reviewed. All images stored on PACS. Automated exposure control was used as a dose optimization technique for this examination. COMPARISON: CT chest 01/05/2020 FINDINGS: HEART: Normal heart size without pericardial effusion. VASCULATURE: Coronary artery calcifications. Scattered calcifications of the thoracic aorta. The distal thoracic aorta measures 3.7 cm diameter (axial image 94). MEDIASTINUM/KRISTYN: No identified masses. No abnormal lymph nodes by size criteria. LUNGS/PLEURA: Pulmonary emphysema. Stable biapical scarring and pleural nodularity, including 12 x 7 mm in the left upper lobe (axial image 29). 10 mm right upper lobe nodule (axial image 34) and 4 mm left upper lobe subpleural nodule (axial image 38) are stable in size. No pleural effusion. No pneumothorax. AXILLA: No adenopathy. CHEST WALL: No masses. No soft tissue gas. HARDWARE/LINES/TUBES: None. UPPER ABDOMEN: Grossly normal. MUSCULOSKELETAL: No acute findings. OTHER: No other acute abnormality. IMPRESSION: 1. Biapical scarring with subpleural densities and nodules, similar in appearance dating back to 04/15/2018. 2. Pulmonary emphysema. 3. Distal thoracic aortic ectasia. Electronically signed by: Sam Salazar M.D. Wes Ornelas MD IMG CT PROCEDURES Marah l Result documented in this encounter Visit Diagnoses Diagnosis Solitary pulmonary nodule documented in this encounter Care Teams Cleater Relationship Specialty Start Date End Date Cassius London MD [address] [facility] [place] [address] PCP - General 02/06/17 documented as of this encounter
--- OUTSIDE RECORDS SUMMARY | 2024-10-26 01:17 | XMS_ITS | Encounter Summary ---
Author Organization [facility] Address [address] [place] [address] Care Team Providers Care Log Cut Off Sawyer Name Role Phone Cassius London MD Primary Care Provider + Reason for Visit * Reason Comments Hernia LIH * Consultation (Routine) - Closed Specialty Diagnoses / Procedures Referred By Contac t Referred To Contact General Surgery Diagnoses Inguinal hernia without obstruction or gangrene, recurrence not specified, unspecified laterality Cassius London MD [address] [place] [address] [place] [address] Phone: tel: fax: Willie Brown MD [address] [place] [address] DR [address] [place] [address] Phone: tel: fax: Referral ID Status Reason Start Date Expiration Date V isits Requested Visits Authorized [id number] Closed Specialty Services Required 11/11/2021 12/11/2022 1 1 Encounter Details Date Type Department Care Team (Late st Contact Info) Description 12/19/2021 10:30 AM LABORER CONSTRUCTION OR LEAK GANG Office Visit [facility] [address] [place] [address] [address] [place] [id number] Willie Brown MD [address] [place] [address] DR ÁLVAREZ [address] [place] [address] Inguinal hernia without obstruction or gangrene, recurrence not specified, unspecified laterality Social History Tobacco Use Types Packs/Day Years Used Date Smoking Tobacco: Former Cigarettes Q uit: 2011 Smokeless Tobacco: Never Alcohol Use Standard Drinks/Week Comments No 0 (1 standard drink = 0.6 oz pur e alcohol) Sex and Gender Information Value Date Recorded Sex Assigned at Not on file Legal Sex Male 1:17 PM LABORER CONSTRUCTION OR LEAK GANG Gender Identity Not on file Sexual Orientation Not on file documented as of this encounter Last Filed Vital Signs Vital Sign Reading Time Taken Comments Blood Pressure 167/91 12/19/2021 10:20 AM LABORER CONSTRUCTION OR LEAK GANG Pulse 97 12/19/2021 10:20 AM LABORER CONSTRUCTION OR LEAK GANG Temperature 36.2 ??C (97.1 ??F) 12/19/2021 10:[address] Respiratory Rate - - Oxygen Saturation 92% 12/19/2021 10:20 AM LABORER CONSTRUCTION OR LEAK GANG Inhaled Oxygen Concentration - - Weight 86.3 kg (190 lb 4.8 oz) 12/19/2021 10:20 AM LABORER CONSTRUCTION OR LEAK GANG Height 172.7 cm (5' 8 ) 12/19/2021 10:20 AM LABORER CONSTRUCTION OR LEAK GANG Body Mass Index 28.94 12/19/2021 10:20 AM LABORER CONSTRUCTION OR LEAK GANG documented in this encounter Progress Notes * Willie Brown MD - 12/19/2021 10:30 AM CST Images from the original note were not included. Surgery Consult Subjective: Patient Name: Xavier Clarke Date of Visit: 12/19/21 HPI: Xavier Clarke is a 81 y.o. [...] was referred to surgery for further evaluation. Chief Complaint: Hernia (LIH) Referred by: Cassius London MD Allergies as of 12/19/2021 - Reviewed 12/19/2021 Allergen Reaction Noted ??? Miguel A inhibitors Cough ??? Acetaminophen Unknown 06/29/2020 ? ? Vicodin [hydrocodone-acetaminophen] Nausea & Vomiting 08/27/2017 Current Outpatient Medications: ??? albuterol HFA (PROAIR HFA) 90 mcg/actuation inhaler ??? aspirin 81 mg chewable tablet ??? calcium carbonate (OS-PINEDA) 1,500 mg (600 mg of elemental calcium) tablet ??? cholecalciferol (VITAMIN D-3) 5,000 unit tablet ??? irbesartan-hydrochlorothiazide (AVALIDE) 150-12.5 mg per tablet ??? montelukast (SINGULAIR) 10 mg tablet ??? zcglrfkd-vcf-zfzip-vit K-lycop (ONE-A-DAY MEN'S MULTIVITAMIN) 400-20-300 mcg tablet ??? simvastatin (ZOCOR) 40 mg tablet ??? tamsulosin (FLOMAX) 0.4 mg capsule,extended release 24hr ??? Trelegy Ellipta 100-62.5-25 mcg inhaler ??? fluorouraciL (EFUDEX) 5 % cream Past Medical History: Diagnosis Date ??? Asbestosis [...] Socioeconomic History ??? Marital status: Spouse name: Not on file ??? Number of children: Not on file ??? Years of education: Not on file ??? Highest education level: Not on file Occupational History ??? Not on file Tobacco Use ??? Smoking status: Former Smoker Quit date: 2011 Years since quittin.1 ??? Smokeless tobacco: Never Used Substance and Sexual Activity ??? Alcohol use: No ??? Drug use: No ??? Sexual activity: Defer Partners: Female Other Topics Concern ??? Not on file Social History Narrative ??? Not on file Social Determinants of Health Financial Resource Strain: Not on file Food Insecurity: Not on file Transportation Needs: Not on file Physical Activity: Not on file Stress: Not on file Social Connections: Not on file Intimate Partner Violence: Not on file Housing Stability: Not on file Review of Systems Constitutional: Negative for activity change. HENT: Negative for hearing loss and sore throat. Eyes: Negative for visual disturbance. Respiratory: Negative for cough and shortness of breath. Cardiovascular: Negative for chest pain. Gastrointestinal: Positive for groin pain Genitourinary: Negative for dysuria. Musculoskeletal: Negative for back pain. Neurological: Negative for dizziness and syncope. Psychiatric/Behavioral: Negative for agitation and confusion. Objective: Vitals BP 167/91 (BP Location: Right arm, Patient Position: Sitting) Pulse 97 Temp 36.2 ??C (97.1 ??F) Ht 172.7 cm (5' 8 ) Wt 86.3 kg (190 lb 4.8 oz) SpO2 92% BMI 28.94 kg/m?? Physical Exam Constitutional: The patient is oriented to person, [...] and dry. Psychiatric: normal mood and affect. Assessment/Plan Diagnoses and all orders for this visit: Inguinal hernia without obstruction or gangrene, recurrence not specified, unspecified laterality Assessment & Plan: I will set the patient up for a robotic assisted left inguinal hernia repair. Risks and benefits have been discussed as well as postoperative restrictions. Preoperative testing will be sent in. Consent to be obtained. All questions answered. Orders: - Ambulatory referral to General Surgery Willie Brown MD 10:41 AM 12/19/2021 RER CONSTRUCTION OR LEAK GANG RER CONSTRUCTION OR LEAK GANG documented in this encounter Miscellaneous Notes * Assessment & Plan Note - Willie Brown MD - 12/19/2021 10:40 AM CSTAssociated Problem(s): Inguinal hernia without obstruction or gangrene I will set the patient up for a robotic assisted left inguinal hernia repair. Risks and benefits have been discussed as well as postoperative restrictions. Preoperative testing will be sent in. Consent to be obtained. All questions answered. RER CONSTRUCTION OR LEAK GANG documented in this encounter Plan of Treatment Not on file documented as of this encounter Visit Diagnoses Diagnosis Inguinal hernia without obstruction or gangrene, recurrence not specified, unspecified laterality documented in this encounter Orders Outpatient Referral Count Last Ordered Date Fir st Ordered Date AMB REFERRAL TO GENERAL SURGERY 1 2 documented in this encounter Care Teams Log Cut Off Sawyer Relationship Specialty Start Date End Date Cassius London MD [address] [facility] [facility] [facility] [place] [address] PCP - General 02/06/17 documented as of this encounter
--- OUTSIDE RECORDS SUMMARY | 2024-10-26 01:17 | XMS_ITS | Encounter Summary ---
Author Organization [facility] Address [address] [place] [address] Care Team Providers Care Logistics Analytics Manager Name Role Phone Cassius London MD Primary Care Provider + Reason for Referral * Diagnostic Imaging (Routine) - Closed Specialty Diagnoses / Procedures Referred By Italia valles Referred To Contact Diagnoses Other specified disorders of kidney and ureter Procedures [place] [address] [place] [address] Phone: tel: fax: [address] [address] Referral ID Status Reason Start Date Expiration Date Visits Re quested Visits Authorized [id number] Closed 08/15/2019 02/23/2021 1 1 Reason for Visit * Diagnostic Imaging (Routine) - Closed Specialty Diagnoses / Procedures Referred By Italia valles Referred To Contact Diagnoses Other specified disorders of kidney and ureter Procedures [place] [address] [address] Phone: tel: fax: [address] [address] Referral ID Status Reason Start Date Expiration Date Visits Re quested Visits Authorized [id number] Closed 08/15/2019 02/23/2021 1 1 Encounter Details Date Type Department Care Team (Latest Contact Info) Description 08/19/2019 11:24 AM CDT - 08/19/2019 11:59 PM CDT Hospital Encounter [facility] [address] [place] [address] [place] [id number] [address] Other specified disorders of kidney and ureter [...] on file 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 90 tablet 07/29/2017 jmmorfgo-tjj-zna ic-vit K-lycop (ONE-A-DAY MEN'S MULTIVITAMIN) 400-20-300 mcg [...] COMPLETE Schedule Routine, Read Routine (OP Routine) 08/19/2019 12:16 PM CDT Other specified disorders of kidney and ureter documented in this encounter Results * US Kidney Complete (08/19/2019 12:16 PM CDT) Anatomical Region Laterality Modality Kidney N/A Ultrasound 08/19/2019 12:4 3 PM CDT Impressions 08/19/2019 1:06 PM CDT 1. ??NO HYDRONEPHROSIS. 2. LEFT RENAL CYSTS. 3. ??PREVIOUSLY NOTED EXOPHYTIC MASS LEFT KIDNEY CANNOT BE DISCRETELY IDENTIFIED ON THIS EXAMINATION. ??FOLLOW-UP WITH CT MAY BE BENEFICIAL. Electronically signed by: Willian Finn 08/19/2019 1:06 PM CDT US KIDNEY COMPLETE HISTORY: Other specified disorders of kidney and ureter. TECHNIQUE: Longitudinal and transverse real-time scans are obtained. COMPARISON: CT for 2018. ??Renal sonogram 09/01/2017. FINDINGS: Kidneys are normal in size. ??Right kidney measures 1.3 x 4.6 x 5.5 cm, left kidney measures 10.7 x 4.5 x 5.3 cm. Non-necrosis. ??A cyst towards the mid to upper pole left kidney measures 4.0 x 3.9 x 3.7 cm. ??A cyst towards lower pole left kidney measures 1.2 x 1.3 x 1.4 cm. ??Urinary bladder is mildly moderately distended with urine. Procedure Note Carlos Delgado MD - 08/19/2019 US KIDNEY COMPLETE HISTORY: Other specified disorders of kidney and ureter. TECHNIQUE: Longitudinal and transverse real-time scans are obtained. COMPARISON: CT for 2018. Renal sonogram 09/01/2017. FINDINGS: Kidneys are normal in size. Right kidney measures 1.3 x 4.6 x 5.5 cm, left kidney measures 10.7 x 4.5 x 5.3 cm. Non-necrosis. A cyst towards the mid to upper pole left kidney measures 4.0 x 3.9 x 3.7 cm. A cyst towards lower pole left kidney measures 1.2 x 1.3 x 1.4 cm. Urinary bladder is mildly moderately distended with urine. IMPRESSION: 1. NO HYDRONEPHROSIS. 2. LEFT RENAL CYSTS. 3. PREVIOUSLY NOTED EXOPHYTIC MASS LEFT KIDNEY CANNOT BE DISCRETELY IDENTIFIED ON THIS EXAMINATION. FOLLOW-UP WITH CT MAY BE BENEFICIAL. Electronically signed by: Carlos Delgado M.D us Yadiel Quezada MD IMG US PROCEDURES Final Resu lt documented in this encounter Visit Diagnoses Diagnosis Other specified disorders of kidney and ureter documented in this encounter Care Teams Logistics Analytics Manager Relationship Specialty Start Date End Date Cassius London MD [address] [facility] [place] [address] PCP - General 02/06/17 documented as of this encounter
--- OUTSIDE RECORDS SUMMARY | 2024-10-26 01:17 | XMS_ITS | Encounter Summary ---
Author Organization [facility] Address [address] [place] [address] Care Team Providers Care Bag Machine Adjuster Name Role Phone Cassius London MD Primary Care Provider + Encounter Details Date Type Department Care Team (Late st Contact Info) Description 10/12/2020 7:55 AM MANAGER QUALITY COMPLIANCE Lab [address] [address] Social History Tobacco Use Types Packs/Day Years Used Date Smoking Tobacco: Former Cigarettes Q uit: 2012 Smokeless Tobacco: Never Alcohol Use Standard Drinks/Week Comments No 0 (1 standard drink = 0.6 oz pur e alcohol) Sex and Gender Information Value Date Recorded Sex Assigned at Not on file Legal Sex Male 1:17 PM MANAGER QUALITY COMPLIANCE Gender Identity Not on file Sexual Orientation Not on file documented as of this encounter Plan of Treatment Not on file documented as of this encounter Visit Diagnoses Not on filedocumented in this encounter Care Teams Bag Machine Adjuster Relationship Specialty Start Date End Date Cassius London MD [address] [facility] [address] [address] [place] [address] PCP - General 02/06/17 documented as of this encounter
--- OUTSIDE RECORDS SUMMARY | 2024-10-26 01:17 | XMS_ITS | Encounter Summary ---
Author Organization [facility] Address [address] [facility] [address] [place] [address] Phone Care Team Providers Care Rotary Driller Name Role Phone Cassius London MD Primary Care Provider + Reason for Visit * Reason Comments Post-op * Consultation (Routine) - Closed Specialty Diagnoses / Procedures Referred By Contac t Referred To Contact Plastic Surgery Diagnoses SCC (squamous cell carcinoma), ear, right Cassius London MD [address] [facility] [place] [address] Phone: tel: fax: [facility] (All Locations) Referral ID Status Reason Start Date Expiration Date V isits Requested Visits Authorized [id number] Closed Specialty Services Required 12/06/2020 12/01/2021 12 12 Encounter Details Date Type Department Care Team (Late st Contact Info) Description 10/15/2021 2:00 PM ROVING HAULER Office Visit [facility] Surgery [address] [place] [address] [address] [place] [address] Brooke Haines NP 2 [facility] [address] [place] [address] 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 [facility] Division of Plastic and Reconstructive Surgery PLASTIC/HAND SURGERY FOLLOW UP PATIENT EVALUATION Patient: Xavier Clarke : 1940 Date of Visit: 10/15/2021 DATE OF SURGERY: 10/09/21 SURGERY: 1. Wide local excision basal cell carcinoma right cheek, 1.7 cm 2. Complex repair right cheek, 7.8 cm SUBJECTIVE: No acute events since surgery. PHYSICAL EXAMINATION: Surgical incision line remains well approximated without compromise or signs of infection. Patient reports sensation surrounding incision without increased pain. REVIEW OF LABORATORY AND RADIOGRAPHIC STUDIES: SKIN, RIGHT CHEEK, EXCISION: ? SCAR FROM A PREVIOUS PROCEDURE ? Note: There is no evidence of a basal cell carcinoma in these sections. ??There is also an incidental dermal melanocytic nevus not associated with the scar. ASSESSMENT: Xavier was seen today for post-op. Diagnoses and all orders for this visit: 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 PLAN: ??? Patient is healing well without issues. We reviewed pathology findings of no remaining signs ofbasal cell carcinoma. ??? He is instructed to apply Vaseline long incision line and clean gently with soap and water. ??? He will return for his three-month follow-up. There are no Patient Instructions on file for this visit. All of the patient's questions were encouraged and answered to their satisfaction. NG HAULER documented in this encounter Plan of Treatment Not on file documented as of this encounter Visit Diagnoses Diagnosis 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- Primary documented in this encounter Care Teams Rotary Driller Relationship Specialty Start Date End Date Cassius London MD [address] [facility] [place] [address] PCP - General 02/06/17 documented as of this encounter
--- OUTSIDE RECORDS SUMMARY | 2024-10-26 01:17 | XMS_ITS | Encounter Summary ---
Author Organization [facility] Healthcare Address [address] [place] [address] Care Team Providers Care Mortgage Loan Processor Name Role Phone Cassius London MD Primary Care Provider + Encounter Details Date Type Department Care Team (Late st Contact Info) Description 06/14/2021 Telephone [facility] [address] [place] [address] Eleanor Guillen RT Social History Tobacco Use Types Packs/Day Years Used Date Smoking Tobacco: Former Cigarettes Q uit: 2012 Smokeless Tobacco: Never Alcohol Use Standard Drinks/Week Comments No 0 (1 standard drink = 0.6 oz pur e alcohol) Sex and Gender Information Value Date Recorded Sex Assigned at Not on file 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
--- OUTSIDE RECORDS SUMMARY | 2024-10-26 01:17 | XMS_ITS | Encounter Summary ---
Author Organization [facility] Address [address] [place] [address] Phone Care Team Providers Care Coal Feeder Operator Name Role Phone Cassius London MD Primary Care Provider + Reason for Visit * Reason Comments Follow-up BCC Right lower leg Encounter Details Date Type Department Care Team (Late st Contact Info) Description 05/09/2019 11:15 AM CDT Office Visit [facility] Surgery [address] [place] [address] [address] [place] [phone] Catracho Coats NP [address] AR[address]MAN [address] [address] Basal cell carcinoma of lower leg, right (Primary Dx) Social History Tobacco Use Types Packs/Day Years Used Date Smoking Tobacco: Former Cigarettes Q uit: 2012 Smokeless Tobacco: Never Alcohol Use Standard Drinks/Week Comments No 0 (1 standard drink = 0.6 oz pur e alcohol) Sex and Gender Information Value Date Recorded Sex Assigned at Not on file Legal Sex Male 1:17 PM TANGIBLE PERSONAL PROPERTY APPRAISER Gender Identity Not on file Sexual Orientation Not on file documented as of this encounter Patient Instructions * Patient Instructions* Catracho Coats NP - 05/09/2019 11:15 AM CDT Images from the original note were not included. SCAR MASSAGE: Purpose: Scar massage is important after surgery as it helps to soften the skin and reduce scarring. It willalso reduce itching and help the joints nearby move better. The main point of scar massage is to mobilize the tissue by moving it in different directions. 1. Scar massage begins when: ??? The skin is closed (usually after stitches are removed) ??? The scar is pink in color ??? No scabs are present 2. Use lotion enriched with either: ??? Vitamin E ??? Columbia butter ??? Lanolin *NO lotion should be used when the wound is open. 3. Massage the scar with your finger or thumb and move the skin in 3 directions: Up and down the length of the scar Side to side across the scar In a circular motion over the entire scar Perform scar massage for 3 minutes at least 3 times daily for several months following surgery. It will make a difference! 1) It will help make the incision disappear 2) It will help to prevent scar tissue beneath the skin which can cause problems 3) It feels good Also, remember to wear sunscreen on your scars when you are in the sun for prolonged periods of time- this is most important for the first 12 months after surgery! documented in this encounter Progress Notes * Catracho Coats NP - 05/09/2019 11:15 AM CDT Images from the original note were not included. PLASTIC SURGERY FOLLOW-UP NOTE Patient: Xavier Clarke : 1940 Date of Service: 05/09/2019 PCP: Cassius London MD CHIEF COMPLAINT: Follow-up (BCC Right lower leg ) HISTORY OF PRESENT ILLNESS: Xavier Clarke is a 78 y.o. male who is 2 weeks status post deep shave biopsy to his right pretibiallower leg and no complications were noted. His past medical history, surgical history, medications,and allergies were reviewed and are up to date in our system. He denies any additional symptoms, complaints, or concerns. REVIEW OF SYSTEMS: Review of systems per HPI and otherwise all systems are negative. PHYSICAL EXAMINATION: Focused examination of the patient's area/s of concern: Biopsy site/s healing well without any signs of symptoms of infection. No erythema, edema, drainage, or malodor noted. REVIEW OF LABORATORY AND RADIOGRAPHIC STUDIES: I have personally reviewed the following results. DIAGNOSIS: SKIN, RIGHT LATERAL DISTAL PRETIBIAL, SHAVE BIOPSY: ? SCAR FROM A PREVIOUS PROCEDURE ? Note: ??There is no evidence of a neoplasm in these sections. dm/isr Claudia Patel M.D. ?? Electronic Signature: 05/03/2019 12:42:55 ASSESSMENT AND PLAN: Diagnoses and all orders for this visit: Basal cell carcinoma of lower leg, right (C44.712) (Primary) Assessment & Plan: Two weeks s/p excision Healing well, no complications or signs of infection reported or noted on exam. Wound care instructions given both verbally and written for. Will return p.r.n. The patient was agreeable of this plan and all questions were answered. Catracho Coats NP documented in this encounter Miscellaneous Notes * Assessment & Plan Note - Catracho Coats NP - 05/09/2019 11:08 AM CDT Associated Problem(s): Basal cell carcinoma of lower leg, right Two weeks s/p excision Healing well, no complications or signs of infection reported or noted on exam. Wound care instructions given both verbally and written for. Will return p.r.n. documented in this encounter Plan of Treatment Not on file documented as of this encounter Visit Diagnoses Diagnosis Basal cell carcinoma of lower leg, right- Primary documented in this encounter Care Teams Coal Feeder Operator Relationship Specialty Start Date End Date Cassius London MD [address] [facility] [place] [address] PCP - General 02/06/17 documented as of this encounter
--- OUTSIDE RECORDS SUMMARY | 2024-10-26 01:17 | XMS_ITS | Encounter Summary ---
Author Organization [facility] Address [address] [facility] [place] [address] Care Team Providers Care Filter Helper Name Role Phone Cassius London MD Primary Care Provider + Reason for Visit * Reason Comments Post-op Hernia Post-op- XI lap ingu inal hernia repair-left 01/24/22 Encounter Details Date Type Department Care Team (Late st Contact Info) Description 02/06/2022 10:15 AM CDT Office Visit [facility] [address] [facility] [address] [place] [phone] Willie Brown MD [address] [place] [address] [address] [place] [address] Inguinal hernia without obstruction or gangrene, recurrence not specified, unspecified laterality (Primary Dx) Social History Tobacco Use Types [...] on file 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 Gender Identity Not on file Sexual Orientation Not on file documented as of this encounter Last Filed Vital Signs Vital Sign Reading Time Taken Comments Blood Pressure 121/74 02/06/2022 10:12 AM CDT Pulse 97 02/06/2022 10:12 AM CDT Temperature 36.2 ??C (97.1 ??F) 02/06/2022 10:12 AM C DT Respiratory Rate - - Oxygen Saturation 92% 02/06/2022 10:12 AM CDT Inhaled Oxygen Concentration - - Weight 85.3 kg (188 lb) 02/06/2022 10:12 AM CDT Height 170.2 cm (5' 7 ) 02/06/2022 10:12 AM CDT Body Mass Index 29.44 02/06/2022 10:12 AM CDT documented in this encounter Progress Notes * Willie Brown MD - 02/06/2022 10:15 AM CDT Images from the original note were not included. Post Op Note Subjective: Patient Name: Xavier Clarke Date of Visit: 02/06/22 HPI: Only complaint is some mild discomfort in the groin that seems to be improving since surgery. Chief Complaint: Post-op Hernia (Post-op- XI lap inguinal hernia repair-left 01/24/22) Objective: Vitals BP 121/74 (BP Location: Right arm) Pulse 97 Temp 36.2 ??C (97.1 ??F) Ht 170.2 cm (5' 7 ) Wt 85.3 kg (188 lb) SpO2 92% BMI 29.44 kg/m?? Physical Exam Incisions clean, dry and intact, hernia repair in good standing Assessment/Plan Diagnoses and all orders for this visit: Inguinal hernia without obstruction or gangrene, recurrence not specified, unspecified laterality (Primary) Assessment & Plan: Continue light duty for another 2 weeks. Continue bowel regimen if needed to avoid straining. Diet as tolerates. Patient will call us back with any further questions or concerns. 10:37 AM 02/06/2022 documented in this encounter Miscellaneous Notes * Assessment & Plan Note - Willie Brown MD - 02/06/2022 10:36 AM CDTAssociated Problem(s): Inguinal hernia without obstruction or gangrene Continue light duty for another 2 weeks. Continue bowel regimen if needed to avoid straining. Diet as tolerates. Patient will call us back with any further questions or concerns. documented in this encounter Plan of Treatment Not on file documented as of this encounter Visit Diagnoses Diagnosis Inguinal hernia without obstruction or gangrene, recurrence not specified, unspecified laterality- Primary documented in this encounter Discontinued Medications Medication Sig Discontinue Reason Start Date End Da te simvastatin (ZOCOR) 40 mg tablet TAKE ONE TABLET BY MOUTH ONCE DAILY IN THE EVENING Dose adjustment 08/28/2008 02/06/2022 documented as of this encounter Historical Medications * This list may reflect changes made after this encounter. amlodipine-atorv astatin (CADUET) 5-10 mg per tablet Take 1 tablet by mouth daily 3 simvastatin (ZOCOR) 10 mg tablet Take 1 tablet by mouth daily 02/04/2022 3 fluticasone propionate (FLONASE) 50 mcg/actuation nasal spray Administer 50 sprays into each nostril 2 (two) times a day as needed 02/05/2022 4 added in this encounter Care Teams Filter Helper Relationship Specialty Start Date End Date Cassius London MD [address] [facility] [place] [address] PCP - General 02/06/17 documented as of this encounter
--- OUTSIDE RECORDS SUMMARY | 2024-10-26 01:17 | XMS_ITS | Encounter Summary ---
Author Organization [facility] Healthcare Address [address] [place] [address] Care Team Providers Care Service Desk Lead Name Role Phone Cassius London MD Primary Care Provider + Encounter Details Date Type Department Care Team (Latest Contact Info) Description 01/10/2023 9:38 AM CLINICAL PROGRAM DIRECTOR - 01/10/2023 9:58 AM CLINICAL PROGRAM DIRECTOR Hospital Encounter [facility] Emergency, Room R Discharge Disposition: Discharge to home or self [...] on file Legal Sex Male 1:17 PM CLINICAL PROGRAM DIRECTOR Gender Identity Not on file Sexual [...] (10 mg total) by mouth nightly 09/09/2021 [id number] -vit K-lycop (ONE-A-DAY MEN'S MULTIVITAMIN) 400-20-300 mcg [...] (twelve) hours 30 tablet 2 01/15/2023 3 aspirin 81 mg chewable tablet chew [...] on filedocumented in this encounter Care Teams Service Desk Lead Relationship Specialty Start Date End Date Cassius London MD [address] [place] [address] PCP - General 02/06/17 documented as of this encounter
--- OUTSIDE RECORDS SUMMARY | 2024-10-26 01:17 | XMS_ITS | Encounter Summary ---
Author Organization [facility] Address [address] [facility] [address] [place] [address] Care Team Providers Care Steam Cleaning Machine Operator Name Role Phone Cassius London MD Primary Care Provider + Reason for Visit * Reason Onset Date Comments Colonoscopy 05/16/2020 Procedure question/concern 05/16/2020 Encounter Details Date Type Department Care Team (Late st Contact Info) Description 05/16/[address] [facility] Gastroenterology at [address] [place] [address] Michelle Babcock Colonoscopy; Procedure question/concern Social History Tobacco Use Types Packs/Day Years Used Date Smoking Tobacco: Former Cigarettes Q uit: 2011 Smokeless Tobacco: Never Alcohol Use Standard Drinks/Week Comments No 0 (1 standard drink = 0.6 oz pur e alcohol) Sex and Gender Information Value Date Recorded Sex Assigned at Not on file Legal Sex Male 1:17 PM ACCOUNTING SUPPORT SPECIALIST Gender Identity Not on file Sexual Orientation Not on file documented as of this encounter Miscellaneous Notes * Telephone Encounter - Michelle Babcock - 05/16/2020 10:49 AM CDT Scheduled colonoscopy w Dr Stevens 05/29/20 @ 7:00 prep given and mailed address verified Last colonoscopy: 4 yrs Family history colon cancer (if yes, relationship to pt): no Personal history colon polyps or colon cancer: polyps Pt on blood thinner (if yes, list medication and reason for taking): no Has pt had recent stent placement within the last year: no Pt have pacemaker/defibrillator: no Pt diabetic (if yes, insulin or oral meds): no Pt have kidney disease or on dialysis: no Pt on iron: no Hx of Constipation: no Mechanical Heart valve: no COVID-19 test verbally given to pt: Instructed pt to call with any medical changes and/or medications/insurance. documented in this encounter Plan of Treatment Not on file documented as of this encounter Visit Diagnoses Diagnosis Diarrhea, unspecified type- Primary Personal history of colonic polyps documented in this encounter Orders Case Request Count Last Ordered Date First Orde red Date CASE REQUEST GI 1 05/16/2020 documented in this encounter Care Teams Steam Cleaning Machine Operator Relationship Specialty Start Date End Date Cassius London MD [address] [place] [address] PCP - General 02/06/17 documented as of this encounter
--- OUTSIDE RECORDS SUMMARY | 2024-10-26 01:17 | XMS_ITS | Encounter Summary ---
Author Organization [facility] Healthcare Address [address] [place] [address] Care Team Providers Care Data Coordinator Name Role Phone Cassius London MD Primary Care Provider + Encounter Details Date Type Department Care Team (Late st Contact Info) Description 01/15/2022 Telephone [facility] [address] [place] [phone] Susi Christianson RT Social History Tobacco Use Types Packs/Day Years Used Date Smoking Tobacco: Former Cigarettes Q uit: 2012 Smokeless Tobacco: Never Alcohol Use Standard Drinks/Week Comments No 0 (1 standard drink = 0.6 oz pur e alcohol) Sex and Gender Information Value Date Recorded Sex Assigned at Not on file Legal Sex Male 1: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
--- OUTSIDE RECORDS SUMMARY | 2024-10-26 01:17 | XMS_ITS | Encounter Summary ---
Author Organization [facility] Address [address] [place] [address] Care Team Providers Care Licensed Vocational Nurse Name Role Phone Cassius London MD Primary Care Provider + Reason for Referral * Diagnostic Imaging (Routine) - Closed Specialty Diagnoses / Procedures Referred By Italia valles Referred To Contact Radiology Diagnoses Other specified disorders of kidney and ureter Procedures CT Abdomen Pelvis W WO Contrast Sourav Veronica MD [address] [place] [address] Phone: tel: fax: [address] [phone] Referral ID Status Reason Start Date Expiration Date Visits Re quested Visits Authorized [id number] Closed 1 1 INE SHORTHAND REPORTER Reason for Visit * Diagnostic Imaging (Routine) - Closed Specialty Diagnoses / Procedures Referred By Italia valles Referred To Contact Radiology Diagnoses Other specified disorders of kidney and ureter Procedures CT Abdomen Pelvis W WO Contrast Sourav Veronica MD [address] [place] [address] Phone: tel: fax: [address] [phone] Referral ID Status Reason Start Date Expiration Date Visits Re quested Visits Authorized [id number] Closed 1 1 Encounter Details Date Type Department Care Team (Late st Contact Info) Description 10/12/2020 7:11 AM MACHINE SHORTHAND REPORTER - 10/12/2020 11:59 PM MACHINE SHORTHAND REPORTER Hospital Encounter [facility] [address] [place] [address] Sourav Veronica MD [address] [place] [phone] Other specified disorders of kidney and [...] on file Legal Sex Male 1:17 PM MACHINE SHORTHAND REPORTER Gender Identity Not on file Sexual Orientation Not on file documented as of this encounter Medications at Time of Discharge albuterol HFA (PROAIR HFA) 90 mcg/actuation inhaler inhale 2 puff by inhalation route every 4 - 6 hours as needed 1 Inhaler 1 09/25/2015 cholecalciferol (VITAMIN D-3) 5,000 unit tablet Take 1 tablet (5,000 Units total) by mouth daily. 90 tablet 07/29/2017 [id number] ic-vit K-lycop (ONE-A-DAY MEN'S MULTIVITAMIN) 400-20-300 mcg [...] Date/Time Associated Diagnosis Comments CT ABDOMEN PELVIS W WO CONTRAST Schedule Routine, Read Routine (OP Routine) 10/12/2020 9:03 AM MACHINE SHORTHAND REPORTER Other specified disorders of kidney and ureter CREATININE, WHOLE BLOOD Routine 10/12/2020 7:54 AM MACHINE SHORTHAND REPORTER documented in this encounter Results * CT Abdomen Pelvis W WO Contrast (10/12/2020 9:03 AM MACHINE SHORTHAND REPORTER) Anatomical Region Laterality Modality Body N/A Computed Tomogra phy 10/12/2020 11:2 4 AM MACHINE SHORTHAND REPORTER Impressions 10/12/2020 12:27 PM MACHINE SHORTHAND REPORTER 1. ??Two left renal lesions arising from the posterior upper and interpolar regions have mildly increased in size, largest 2 cm in the mid pole. ??Primary consideration is again given to renal cell carcinoma. 2. ??Another hyperattenuating lesion in the anterior mid pole of the left kidney has increased in size as well but favored to represent a hemorrhagic/proteinaceous cyst due to lack of enhancement. 3. ??Multiple small bowel and colonic diverticula. ??No diverticulitis. 4. ??Stable moderate enlargement of the prostate gland. Electronically signed by: Hector Merrill M.D. Narrative 10/12/2020 12:27 PM MACHINE SHORTHAND REPORTER EXAMINATION: CT ABDOMEN PELVIS W WO CONTRAST ORDERING HEALTHCARE PROVIDER: SOURAV VERONICA HISTORY: History of renal mass presents for follow-up. TECHNIQUE: CT abdomen and pelvis without and with intravenous contrast and without oral contrast. ??All images stored on PACS. Automated exposure control was used as a dose optimization technique for this examination. CONTRAST TYPE/DOSE: 100 mL Optiray 320 right antecubital fossa COMPARISON: 03/03/2019 FINDINGS: KIDNEYS: There are no renal calcifications. There is symmetric uptake and excretion of contrast by the kidneys. ??Multiple bilateral renal cysts are again seen. ??In the left kidney a 2 x 2 centimeter enhancing lesion arising from the posterior midpole is slightly increased, previously 2 x 1.8 cm. ??A 1.8 x 1.5 cm mildly enhancing lesion arising from the posterior upper pole is also slightly increased, previously 1.4 x 1.2 cm. ??A hyperattenuating lesion without postcontrast enhancement in the anterior midpole is also increased in size, measuring 2 x 1.5 cm previously 1.7 x 1.4 cm. There are single bilateral renal arteries. URETERS AND BLADDER: There is no enhancing urothelial lesion or filling defect identified in the collecting system. The urinary bladder has grossly normal appearance. LOWER CHEST: The lung bases demonstrate mild right basilar atelectasis. ??No confluent consolidation or pleural effusion. The heart is normal in size without pericardial effusion. LIVER: Normal. GALLBLADDER: No radiodense gallstones or evidence of acute cholecystitis. SPLEEN: Normal. ??Multiple calcified granulomas again noted. PANCREAS: Normal. ADRENALS: Normal. GI: No bowel obstruction. Normal appendix. Multiple small bowel and colonic diverticula are present without diverticulitis. PERITONEUM: No free intraperitoneal air or ascites. REPRODUCTIVE: Moderately enlarged prostate gland is stable. VASCULATURE: Abdominal aorta is atherosclerotic. ??A pararenal abdominal aortic aneurysm measuring 3.4 cm AP x 3.5 cm transverse is minimally increased, previously 3.3 cm AP x 3.3 cm transverse. MUSCULOSKELETAL: No acute findings. ??Spinal degenerative changes with mild to moderate disc space narrowing at L4/5 and L5/S1. OTHER: Small fat-containing umbilical and left inguinal hernias are present. ??Again seen is common origin of the celiac and SMA. Procedure Note Hector Merrill MD - 10/12/2020 EXAMINATION: CT ABDOMEN PELVIS W WO CONTRAST ORDERING HEALTHCARE PROVIDER: SOURAV VERONICA HISTORY: History of renal mass presents for follow-up. TECHNIQUE: CT abdomen and pelvis without and with intravenous contrast and without oral contrast. All images stored on PACS. Automated exposure control was used as a dose optimization technique for this examination. CONTRAST TYPE/DOSE: 100 mL Optiray 320 right antecubital fossa COMPARISON: 03/03/2019 FINDINGS: KIDNEYS: There are no renal calcifications. There is symmetric uptake and excretion of contrast by the kidneys. Multiple bilateral renal cysts are again seen. In the left kidney a 2 x 2 centimeter enhancing lesion arising from the posterior midpole is slightly increased, previously 2 x 1.8 cm. A 1.8 x 1.5 cm mildly enhancing lesion arising from the posterior upper pole is also slightly increased, previously 1.4 x 1.2 cm. A hyperattenuating lesion without postcontrast enhancement in the anterior midpole is also increased in size, measuring 2 x 1.5 cm previously 1.7 x 1.4 cm. There are single bilateral renal arteries. URETERS AND BLADDER: There is no enhancing urothelial lesion or filling defect identified in the collecting system. The urinary bladder has grossly normal appearance. LOWER CHEST: The lung bases demonstrate mild right basilar atelectasis. No confluent consolidation or pleural effusion. The heart is normal in size without pericardial effusion. LIVER: Normal. GALLBLADDER: No radiodense gallstones or evidence of acute cholecystitis. SPLEEN: Normal. Multiple calcified granulomas again noted. PANCREAS: Normal. ADRENALS: Normal. GI: No bowel obstruction. Normal appendix. Multiple small bowel and colonic diverticula are present without diverticulitis. PERITONEUM: No free intraperitoneal air or ascites. REPRODUCTIVE: Moderately enlarged prostate gland is stable. VASCULATURE: Abdominal aorta is atherosclerotic. A pararenal abdominal aortic aneurysm measuring 3.4 cm AP x 3.5 cm transverse is minimally increased, previously 3.3 cm AP x 3.3 cm transverse. MUSCULOSKELETAL: No acute findings. Spinal degenerative changes with mild to moderate disc space narrowing at L4/5 and L5/S1. OTHER: Small fat-containing umbilical and left inguinal hernias are present. Again seen is common origin of the celiac and SMA. IMPRESSION: 1. Two left renal lesions arising from the posterior upper and interpolar regions have mildly increased in size, largest 2 cm in the mid pole. Primary consideration is again given to renal cell carcinoma. 2. Another hyperattenuating lesion in the anterior mid pole of the left kidney has increased in size as well but favored to represent a hemorrhagic/proteinaceous cyst due to lack of enhancement. 3. Multiple small bowel and colonic diverticula. No diverticulitis. 4. Stable moderate enlargement of the prostate gland. Electronically signed by: Hector Merrill M.D. us Sourav Veronica MD [facility] CT PROCEDURES Final Result * (ABNORMAL) Creatinine, whole blood (10/12/2020 7:54 AM MACHINE SHORTHAND REPORTER) Creatinine, bld 1.42(H) 0.60 - 1.30 mg/dL NNEKA PICHARDO ([place]) Blood specimen (specimen) 10/12/2020 7:54 AM MACHINE SHORTHAND REPORTER 10/12/2020 7:54 AM MACHINE SHORTHAND REPORTER us Sourav Veronica MD LAB BLOOD ORDERABLES Fi nal Result NNEKA PICHARDO ([place]) 1 [facility] Department [place] [address] documented in this encounter Visit Diagnoses Diagnosis Other specified disorders of kidney and ureter documented in this encounter Administered Medications Inactive Administered Medications - up to 3 most recent administrations Medication Order MAR Action Action Date Dose Rate Site ioversoL (OPTIRAY 320) intravenous syringe 100 mL 100 mL, intravenous, Once in imaging, contrast, Starting on Thu10/12/20 at 0823, For 1 dose Given 10/12/2020 9:01 AM MACHINE SHORTHAND REPORTER 100 mL documented in this encounter Care Teams Licensed Vocational Nurse Relationship Specialty Start Date End Date Cassius London MD [address] [place] [address] PCP - General 02/06/17 documented as of this encounter
--- OUTSIDE RECORDS SUMMARY | 2024-10-26 01:17 | XMS_ITS | Encounter Summary ---
Author Organization [facility] Address [address] [place] [address] Phone Care Team Providers Care Risk Control Product Liability Director Name Role Phone Cassius London MD Primary Care Provider + Encounter Details Date Type Department Care Team (Late st Contact Info) Description 05/02/2019 Orders Only [facility] [address] [place] [address] Francisco Bolton III, MD [address] [facility] [id number] [place], [place] [id number] Basal cell carcinoma of lower leg, right Social History Tobacco Use Types Packs/Day Years Used Date Smoking Tobacco: Former Cigarettes Q uit: 2012 Smokeless Tobacco: Never Alcohol Use Standard Drinks/Week Comments No 0 (1 standard drink = 0.6 oz pur e alcohol) Sex and Gender Information Value Date Recorded Sex Assigned at Not on file Legal Sex Male 1:17 PM PRODUCTION RECORDER Gender Identity Not on file Sexual Orientation Not on file documented as of this encounter Plan of Treatment Not on file documented as of this encounter Procedures Procedure Name Priority Date/Time Associated Diagnosis Comments SURGICAL PATHOLOGY Routine 04/29/2019 12 :00 AM CDT Basal cell carcinoma of lower leg, right documented in this encounter Results * Surgical pathology (04/29/2019 12:00 AM CDT) Tissue 04/29/2019 05/02/2019 6:5 1 AM CDT [facility] - 05/03/2019 12:42 PM CDT EPIC results best viewed via link to PDF [facility] ??[address], [place] [address] ?[email or web address] REPORT Patient Information: PATIENT NAME: ??CLARITA JUAN ? SEX: ??M ? : ??1940 (Age: 78) ? Specimen Information: COLLECTED: ??04/29/2019 ? RECEIVED: ??05/02/2019 ? REPORTED: ??05/03/2019 ? Submitting Physician Information: Dr. Francisco Bolton III, M.D. [address] [place] [address], [facility] [address], [place] ??[address] , ? DERMATOPATHOLOGY REPORT RESULTS ?? DIAGNOSIS: SKIN, RIGHT LATERAL DISTAL PRETIBIAL, SHAVE BIOPSY: ? SCAR FROM A PREVIOUS PROCEDURE ? Note: ??There is no evidence of a neoplasm in these sections. dm/isr Claudia Patel M.D. ?? Electronic Signature: 05/03/2019 12:42:55 CLINICAL INFORMATION RESIDUAL BCC; PREVIOUS SHAVE BIOPSY; R/O BCC SPECIMEN DATA MICROSCOPIC DESCRIPTION: There is a proliferation of fibroblasts aligned parallel to the skin surface interposed among linearly arranged, thickened collagen bundles and small blood vessels. (L90.5) GROSS DESCRIPTION: Received in a formalin-containing bottle is a superficial fragment of pale mg, finely scaling, hair-bearing skin measuring 1.2 by 1.2 by 0.1 cm. The specimen is sectioned into 5 pieces and submitted entirely in a single cassette. Due to shrinkage, measurements may be different than those at time of procedure. mn/dxv The characteristics of some immunohistochemical and immunofluorescence stains as well as in-situ hybridization tests were determined by the [facility] in ongoing quality control engineering technician and in compliance with regulations drawn from the Clinical Laboratory Improvement Act of 1988 (CLIA '88). These tests may rely on the use of analyte specific reagents that are subject to specific labeling requirements by the US FDA, and may only be performed in a facility that is certified by the [facility] as a high-complexity laboratory under CLIA '88. These tests are used for clinical purposes and are not investigational.For lab developed tests and LIBAN, the validation has been reviewed; the performance is considered acceptable for patient testing. LIBAN has not been approved by the US FDA; lipemic/hemolyzed samples can affect the diagnosis. Francisco Bolton III, MD LAB PATHOLOGY ORDERA BLES Final Result [facility] [place], [place] [id number] documented in this encounter Visit Diagnoses Diagnosis Basal cell carcinoma of lower leg, right documented in this encounter Care Teams Risk Control Product Liability Director Relationship Specialty Start Date End Date Cassius London MD [address] [place] [address] PCP - General 02/06/17 documented as of this encounter
--- OUTSIDE RECORDS SUMMARY | 2024-10-26 01:17 | XMS_ITS | Encounter Summary ---
Author Organization [facility] Healthcare Address [address] [place] [address] Care Team Providers Care Belt Sander Stone Name Role Phone Cassius London MD Primary Care Provider + Encounter Details Date Type Department Care Team (Late st Contact Info) Description 10/11/2020 Telephone [facility] [address] [place] [id number] Tiffany Ellsworth RT Social History Tobacco Use Types Packs/Day Years Used Date Smoking Tobacco: Former Cigarettes Q uit: 2012 Smokeless Tobacco: Never Alcohol Use Standard Drinks/Week Comments No 0 (1 standard drink = 0.6 oz pur e alcohol) Sex and Gender Information Value Date Recorded Sex Assigned at Not on file Legal Sex Male 1:17 PM QLIKVIEW DEVELOPER Gender Identity Not on file Sexual Orientation Not on file documented as of this encounter Miscellaneous Notes * Telephone Encounter - Tiffany Ellsworth RT - 10/11/2020 2:26 PM QLIKVIEW DEVELOPER No answer VIEW DEVELOPER documented in this encounter Plan of Treatment Not on file documented as of this encounter Visit Diagnoses Not on filedocumented in this encounter Care Teams Belt Sander Stone Relationship Specialty Start Date End Date Cassius London MD [address] [place] [place] [address] PCP - General 02/06/17 documented as of this encounter
--- OUTSIDE RECORDS SUMMARY | 2024-10-26 01:18 | XMS_ITS | Encounter Summary ---
Author Organization [facility] Healthcare Address [address] [place] [address] Care Team Providers Care Sifter Operator Name Role Phone Cassius London MD Primary Care Provider + Encounter Details Date Type Department Care Team (Late st Contact Info) Description 01/21/2017 7:14 AM CDT - 01/21/2017 11:59 PM CDT Hospital Encounter [facility] INTERIM Cassius London MD [address] [place] [address] Discharge Disposition: Discharge to home or self care Social History Tobacco Use Types Packs/Day Years Used Date Smoking Tobacco: Former Alcohol Use Standard Drinks/Week Comments No 0 (1 standard drink = 0.6 oz pur e alcohol) Sex and Gender Information Value Date Recorded Sex Assigned at Not on file 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 Gender Identity Not on file Sexual Orientation Not on file documented as of this encounter Medications at Time of Discharge albuterol HFA (PROAIR HFA) 90 mcg/actuation inhaler inhale 2 puff by inhalation route every 4 - 6 hours as needed 1 Inhaler 1 09/25/2015 qilozkpd-qdt-klb ic-vit K-lycop (ONE-A-DAY MEN'S MULTIVITAMIN) 400-20-300 mcg tablet Take one by mouth one time per day 0 0 08/23/2008 amLODIPine-valsa rtan-hcthiazid (EXFORGE HCT) 5-160-12.5 mg tablet TAKE ONE TABLET BY MOUTH ONCE DAILY 90 2 09/18/2011 7 aspirin 81 mg chewable tablet chew 1 tablet by oral route every day 0 0 2015 3 calcium carbonate-vitami n D3 (OS-PINEDA 500 + D3) 500mg (1,250mg) -600 unit tablet take 1 tablet twice a day 0 09/10/2011 7 cetirizine (ZyrTEC) 10 mg capsule take 1 by Oral route once 0 0 01/01/2016 7 fluticasone (FLONASE) 50 mcg/actuation nasal spray inhale 2 spray by Intranasal route every day in each nostril 1 spray 6 09/25/2015 7 simvastatin (ZOCOR) 40 mg tablet TAKE ONE [...] on filedocumented in this encounter Care Teams Sifter Operator Relationship Specialty Start Date End Date Cassius London MD [address] [place] [address] PCP - General 01/21/17 02/05/17 documented as of this encounter
--- OUTSIDE RECORDS SUMMARY | 2024-10-26 01:18 | XMS_ITS | Encounter Summary ---
Author Organization [facility] Healthcare Address [address] [place] [address] Care Team Providers Care Bun Icer Name Role Phone Cassius London MD Primary Care Provider + Encounter Details Date Type Department Care Team (Late st Contact Info) Description 09/17/2017 7:14 AM ACCREDITATION COORDINATOR - 09/17/2017 9:22 AM ACCREDITATION COORDINATOR Hospital Encounter [facility] Operating Room [address] [place] [address] Cassius Gutierrez MD [address] [place] [address] Discharge Disposition: Discharge to home or self care Social History Tobacco Use Types Packs/Day Years Used Date Smoking Tobacco: Former Cigarettes Q uit: 2012 Smokeless Tobacco: Never Alcohol Use Standard Drinks/Week Comments No 0 (1 standard drink = 0.6 oz pur e alcohol) Sex and Gender Information Value Date Recorded Sex Assigned at Not on file Legal Sex Male 1:17 PM ACCREDITATION COORDINATOR Gender Identity Not on file Sexual Orientation Not on file documented as of this encounter Medications at Time of Discharge albuterol HFA (PROAIR HFA) 90 mcg/actuation inhaler inhale 2 puff by inhalation route every 4 - 6 hours as needed 1 Inhaler 1 09/25/2015 cholecalciferol (VITAMIN D-3) 5,000 unit tablet Take 1 tablet (5,000 Units total) by mouth daily. 90 tablet 07/29/2017 oqfzkokg-uhi-nba ic-vit K-lycop (ONE-A-DAY MEN'S MULTIVITAMIN) 400-20-300 mcg [...] or self care documented in this encounter Miscellaneous Notes * Op Note - Provider, MD Shilo - 09/17/2017 12:00 AM CST OPERATIVE REPORT Patient: CLARITA JUAN Service Date: 09/17/2017 Account: [id number] Room No: 175-06 : 1940 Patient Type: [facility] Attend.: Cassius Gutierrez M.D. Admit Date: 09/17/2017 Surg.: Cassius Gutierrez M.D. Disch. Date: 09/17/2017 SURGEON Cassius Gutierrez MD PREOPERATIVE DIAGNOSIS Epidermoid cyst of the back. POSTOPERATIVE DIAGNOSIS Epidermoid cyst of the back. OPERATION Excision of epidermoid cyst of the back with moderate complexity skin closure, 3 cm. TYPE OF ANESTHESIA Local. INDICATIONS A long-standing skin cyst which recently became infected and ruptured. Following resolution of the acute infection the patient presents for removal of the cyst. DESCRIPTION OF THE PROCEDURE The risks benefits of procedure were explained to the patient. Informed consent was obtained. He was brought to the minor procedure room. He was lying on the table in the prone position. We prepped and draped the back in a sterile fashion. A vertically oriented spindle-shaped incision was made around the cyst including all of the contents and the wall of the cyst. It was carried down through the subcutaneous tissue. We removed the entire affected area en bloc and handed it off as a specimen. There was a small bleeding vessel at the base of the subcutaneous tissue that was ligated with a qjwsbl-gs-bgkyy 3-0 Vicryl suture. The incision was then closed in 2 layers with interrupted 3-0 Vicryl sutures for the deep dermal layer and running 4-0 Monocryl for the subcuticular layer. The length of the closure was 3 cm. The patient tolerated the procedure well. Electronically Authenticated by: Cassius Gutierrez MD On 09/18/2017 10:50 AM ACCREDITATION COORDINATOR Pascual Bradshaw/don TD: 09/17/2017 17:26 documented in this encounter Plan of Treatment Not on file documented as of this encounter Procedures Procedure Name Priority Date/Time Associated Diagnosis Comments SURGICAL PATHOLOGY Routine 09/17/2017 12 :43 PM ACCREDITATION COORDINATOR SURGICAL PATHOLOGY 09/17/2017 12 :00 AM ACCREDITATION COORDINATOR documented in this encounter Results * Surgical pathology (09/17/2017 12:43 PM ACCREDITATION COORDINATOR) 09/17/2017 12:4 3 PM ACCREDITATION COORDINATOR 09/17/2017 12:43 PM ACCREDITATION COORDINATOR Narrative 09/21/2017 10:59 AM ACCREDITATION COORDINATOR [facility] Department of Pathology [address] [place] [address] Final Report ?Patient Name: CLARITA JUAN Address: [address] [place] [address] Service: Surgery ??[place], [place] ??[facility] Location: [facility] AMB SPENCER Taken: 09/17/2017 Gender: M Received 09/17/2017 : 1940 (Age: 76) Hospital #: [id number] Accessioned: 09/17/2017 ?? Patient Type: [facility] SDS Reported 09/21/2017 Physician(s): Cassius Gutierrez M.D. ?? Diagnosis: Skin, back, biopsy: ? - Keratinous cyst, epidermal type, ruptured ?? Violet Gibbons M.D. ??Report Electronically Reviewed and Signed Out By ??Violet Gibbons M.D. ??09/21/2017 10:59:36 Specimen(s) Received: A: Tag, cyst, abscess or debridement of skin Microscopic Description: Microscopic examination confirms the presence of a cyst, more specifically a keratinous cyst of the epidermal type. ??It is lined by keratinizing squamous epithelium that has a well-defined granular cell layer. ??In some areas the lining is eroded, replaced by an exuberant fibroinflammatory stromal reaction that includes foreign body type giant cells, some engulfing anucleated squames. ??These alterations would be consistent with rupture. Clinical History: Epidermoid cyst back. ?? Gross Description: The container is labeled Clarita Juan and epidermoid cyst back . ??It is an unoriented elliptical-shaped piece of mg skin and subcutis measuring 2.5 x 2 x 1 cm. ??A disrupted cyst structure is present beneath the skin surface, measuring 0.7 cm. ??It is associated with ulceration of the skin surface. ??Represented in one cassette. ??Tamela Payne R.N., P.A./Joshua Viramontes M.D. Complete report with images are only be viewable in the PDF report The performance characteristics of some immunohistochemical stains, fluorescence in-situ hybridization tests and immunophenotyping by flow cytometry cited in this report (if any) were determined by the Surgical Pathology Department at [facility] as part of an ongoing quality process engineer program and in compliance with federally mandated [...] a high complexity laboratory under CLIA '88. ??The FDA has determined that such clearance or approval is not necessary. ??This test is used for clinical purposes. ??It should not be regarded as investigational or for research. ??Nevertheless, federal rules concerning the medical use of analyte specific reagents require that the following disclaimer be attached to the report: This test was developed and its performance characteristics determined by the Surgical Pathology Department [facility]. ??It has not been cleared or approved by the U. S. Food and Drug Administration. Cassius Gutierrez MD LAB PATHOLOGY ORDER YASSINE Final Result * SURGICAL PATHOLOGY (09/17/2017 12:00 AM ACCREDITATION COORDINATOR) Narrative 09/17/2017 12:00 AM ACCREDITATION COORDINATOR Ordered by an unspecified provider. Historical Provider LAB PATHOLOGY ORDERABLES Final Result documented in this encounter Visit Diagnoses Not on filedocumented in this encounter Care Teams Bun Icer Relationship Specialty Start Date End Date Cassius London MD [address] [facility] [place] [address] PCP - General 02/06/17 documented as of this encounter
--- OUTSIDE RECORDS SUMMARY | 2024-10-26 01:18 | XMS_ITS | Encounter Summary ---
Author Organization [facility] Healthcare Address [address] [place] [address] Care Team Providers Care Skiing Teacher Name Role Phone Cassius London MD Primary Care Provider + Encounter Details Date Type Department Care Team (Latest Contact Info) Description 09/24/2017 7:05 AM WING COMMANDER - 09/24/2017 11:59 PM WING COMMANDER Hospital Encounter [place] [address] [address] Discharge Disposition: Discharge to home or self care Social History Tobacco Use Types Packs/Day Years Used Date Smoking Tobacco: Former Cigarettes Q uit: 2012 Smokeless Tobacco: Never Alcohol Use Standard Drinks/Week Comments No 0 (1 standard drink = 0.6 oz pur e alcohol) Sex and Gender Information Value Date Recorded Sex Assigned at Not on file Legal Sex Male 1:17 PM WING COMMANDER Gender Identity Not on file Sexual Orientation Not on file documented as of this encounter Medications at Time of Discharge albuterol HFA (PROAIR HFA) 90 mcg/actuation inhaler inhale 2 puff by inhalation route every 4 - 6 hours as needed 1 Inhaler 1 09/25/2015 cholecalciferol (VITAMIN D-3) 5,000 unit tablet Take 1 tablet (5,000 Units total) by mouth daily. 90 tablet 07/29/2017 rawvoxef-dvr-qoh ic-vit K-lycop (ONE-A-DAY MEN'S MULTIVITAMIN) 400-20-300 mcg [...] Procedure Name Priority Date/Time Associated Diagnosis Comments DISCHARGE LABORATORY CUMULATIVE REPORT 09/25/2017 12:[address] ABDOMEN W WO CONTRAST Routine 09/24/2017 2:10 PM WING COMMANDER documented in this encounter Results * DISCHARGE LABORATORY CUMULATIVE REPORT (09/25/2017 12:00 AM WING COMMANDER) Narrative 09/25/2017 12:00 AM WING COMMANDER Ordered by an unspecified provider. us Historical Provider LAB BLOOD ORDERABLES Marah l Result * CT Abdomen W WO Contrast (09/24/2017 2:10 PM WING COMMANDER) Anatomical Region Laterality Modality Body N/A Computed Tomogra phy 09/24/2017 2:10 PM WING COMMANDER Narrative 09/24/2017 2:[address] Abd W/WO ? [id number] ??Acc#: ??[id number] DATE OF EXAM: ??Sep 24 2017 ?? EXAM: CT Abd W/WO ? [id number] HISTORY: Possible right renal mass seen on ultrasound of 09/01/2017. Microscopic hematuria. COMPARISON: CT urogram from 06/14/2015 and renal ultrasound from 09/01/2017 TECHNIQUE: Following administration of 100 mL Optiray 350 a multiphase renal protocol CT scan was performed. FINDINGS: Views through the lung bases reveal no acute pulmonary findings. ??An enhancing exophytic lesion from the mid left kidney has increased in size since the prior CT scan as it now measures 1.8 x 1.7 cm, previously 1.5 x 1.3 cm. ??No suspicious solid right renal lesions are seen to correspond to the ultrasound findings. ??Simple bilateral renal cysts are again noted with the largest single cyst on the left measuring 4.5 cm and the largest single cyst on the right measuring 1.3 cm. ??Perinephric fat stranding is present on the left. ??The liver, gallbladder, spleen, pancreas, and adrenal glands are normal. A few colonic diverticula are noted without evidence of acute diverticulitis seen. ??A normal-appearing appendix is present. ??No significant mesenteric or retroperitoneal lymphadenopathy is noted. IMPRESSION: 1. ??Interval increase size of an enhancing, exophytic left renal mass concerning for primary renal malignancy. 2. ??No suspicious right renal lesion seen. 3. ??Simple appearing bilateral renal cysts noted. 4. ??Diverticulosis without evidence of acute diverticulitis. Electronically signed by: Marlena Dhillon M.D. Interpreting Physician: ??MARLENA DHILLON M.D. ??Read on: ??Sep 24 2017 ?? 8:20A Transcribed by: ??PSC ??On: Sep 24 2017 ??8:18A Approved Electronically by: ??MARLENA DHILLON M.D. ??on: ??Sep 24 2017 ?? 8:18A Ordering DR: DR RASTA MAC Attending DR: RASTA MAC Attending: ??RASTA MAC Requesting: ??DR RASTA MAC Requesting Fax: ??[phone] Attending Fax: ??-- Attending ID: ??[id number] Requesting ID: ??[id number] Report To 1 ID: ??[id number] Report To 1 Name: ??RASTA MAC Report To 1 FAX: ??-- NextGen Order #: ?? Procedure Note Miscellaneous, Not In File - 09/28/2017 CT Abd W/WO [id number] Acc#: [id number] DATE OF EXAM: Sep 24 2017 EXAM: CT Abd W/WO [id number] HISTORY: Possible right renal mass seen on ultrasound of 09/01/2017. Microscopic hematuria. COMPARISON: CT urogram from 06/14/2015 and renal ultrasound from 09/01/2017 TECHNIQUE: Following administration of 100 mL Optiray 350 a multiphase renal protocol CT scan was performed. FINDINGS: Views through the lung bases reveal no acute pulmonary findings. An enhancing exophytic lesion from the mid left kidney has increased in size since the prior CT scan as it now measures 1.8 x 1.7 cm, previously 1.5 x 1.3 cm. No suspicious solid right renal lesions are seen to correspond to the ultrasound findings. Simple bilateral renal cysts are again noted with the largest single cyst on the left measuring 4.5 cm and the largest single cyst on the right measuring 1.3 cm. Perinephric fat stranding is present on the left. The liver, gallbladder, spleen, pancreas, and adrenal glands are normal. A few colonic diverticula are noted without evidence of acute diverticulitis seen. A normal-appearing appendix is present. No significant mesenteric or retroperitoneal lymphadenopathy is noted. IMPRESSION: 1. Interval increase size of an enhancing, exophytic left renal mass concerning for primary renal malignancy. 2. No suspicious right renal lesion seen. 3. Simple appearing bilateral renal cysts noted. 4. Diverticulosis without evidence of acute diverticulitis. Electronically signed by: Marlena Dhillon M.D. Interpreting Physician: MARLENA DHILLON M.D. Read on: Sep 24 2017 8:20A Transcribed by: [facility] On: Sep 24 2017 8:18A Approved Electronically by: MARLENA DHILLON M.D. on: Sep 24 2017 8:18A Ordering DR: DR RASTA MAC Attending DR: RASTA MAC Attending: RASTA MAC Requesting: DR RASTA MAC Requesting Attending Fax: -- Attending ID: [id number] Requesting ID: [id number] Report To 1 ID: [id number] Report To 1 Name: RASTA MAC Report To 1 FAX: -- NextGen Order #: us Rasta Mac MD IMG CT PROCEDURES Edited Res ult - Final documented in this encounter Visit Diagnoses Not on filedocumented in this encounter Care Teams Skiing Teacher Relationship Specialty Start Date End Date Cassius London MD [address] [place] [address] PCP - General 02/06/17 documented as of this encounter
--- OUTSIDE RECORDS SUMMARY | 2024-10-26 01:18 | XMS_ITS | Encounter Summary ---
Author Organization [facility] Address [address] [place] [address] Care Team Providers Care Customer Support Advisor Name Role Phone Cassius London MD Primary Care Provider + Reason for Referral * Consultation (Routine) - Closed Specialty Diagnoses / Procedures Referred By Contac t Referred To Contact Pulmonary Disease Diagnoses Chronic obstructive pulmonary disease, unspecified COPD type (HCC) Cassius London MD Phone: tel: fax: Andrey Uribe MD Phone: tel: fax: Referral ID Status Reason Start Date Expiration Date V isits Requested Visits Authorized [id number] Closed Specialty Services Required 07/09/2017 07/09/2018 1 1 Scheduling Instructions Appt 07/09/17 Comments [facility] Encounter Details Date Type Department Care Team (Late st Contact Info) Description 04/23/2017 Transcribe Orders [facility] [address] [facility] [address] [place] [id number] Cassius London MD [address] [address] Chronic obstructive pulmonary disease, unspecified COPD type (CMS/HCC) (Primary Dx) Social History Tobacco Use Types Packs/Day Years Used Date Smoking Tobacco: Former Alcohol Use Standard Drinks/Week Comments No 0 (1 standard drink = 0.6 oz pur e alcohol) Sex and Gender Information Value Date Recorded Sex Assigned at Not on file 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 Gender Identity Not on file Sexual Orientation Not on file documented as of this encounter Plan of Treatment Scheduled Referrals Name Type Priority Associated Diagnoses Orde r Schedule Ambulatory referral to Pulmonology Outpatient Referral Routine Chronic obstructive pulmonary disease, unspecified COPD type (CMS/HCC) Ordered: 04/23/2017 documented as of this encounter Visit Diagnoses Diagnosis Chronic obstructive pulmonary disease, unspecified COPD type (HCC)- Primary documented in this encounter Care Teams Customer Support Advisor Relationship Specialty Start Date End Date Cassius London MD [address] [address] PCP - General 02/06/17 documented as of this encounter
--- OUTSIDE RECORDS SUMMARY | 2024-10-26 01:18 | XMS_ITS | Encounter Summary ---
Author Organization [facility] Healthcare Address [address] [place] [address] Care Team Providers Care Health Tech Name Role Phone Cassius London MD Primary Care Provider + Encounter Details Date Type Department Care Team (Late st Contact Info) Description 12/18/2016 10:30 AM ADULT MANAGER - 12/18/2016 11:59 PM [facility] Hospital Encounter [facility] De[place], [place] [address] [facility] [address] [place] [address] Caty Chandra MD 6 [facility] [address] [place] [address] Encounter for screening for malignant neoplasm of respiratory organs; Solitary pulmonary nodule; Pulmonary fibrosis (CMS/HCC); Other emphysema (CMS/HCC); Centrilobular emphysema (CMS/HCC); Other disorders of lung; Other nonspecific abnormal finding of lung field; Other specified noninfective disorders of lymphatic vessels and lymph nodes; Other diseases of spleen; Diverticulosis of large intestine without perforation or abscess without bleeding; Atherosclerotic heart disease of [place] coronary artery without angina pectoris; Personal history of nicotine dependence Social History Tobacco Use Types Packs/Day Years Used Date Smoking Tobacco: Former Alcohol Use Standard Drinks/Week Comments No 0 (1 standard drink = 0.6 oz pur e alcohol) Sex and Gender Information Value Date Recorded Sex Assigned at Not on file Legal Sex Male 1:17 PM ADULT MANAGER Gender Identity Not on file Sexual Orientation Not on file documented as of this encounter Medications at Time of Discharge albuterol HFA (PROAIR HFA) 90 mcg/actuation inhaler inhale 2 puff by inhalation route every 4 - 6 hours as needed 1 Inhaler 1 09/25/2015 [id number] ic-vit K-lycop (ONE-A-DAY MEN'S MULTIVITAMIN) 400-20-300 mcg [...] 08/06/2016 4 documented as of this encounter Plan of Treatment Not on file documented as of this encounter Procedures Procedure Name Priority Date/Time Associated Diagnosis Comments LUNG COMPUTED TOMOGRAPHY (CT) Routine 12/18/2016 11:23 AM ADULT MANAGER documented in this encounter Results * LUNG COMPUTED TOMOGRAPHY (CT) (12/18/2016 11:23 AM ADULT MANAGER) Anatomical Region Laterality Modality N/A Computed Tomogra phy 12/18/2016 11:2 3 AM ADULT MANAGER Narrative 12/18/2016 3:11 PM ADULT MANAGER DATE OF EXAM: ??Dec ??2016 11:23AM Acc#: ??[id number] ??ECT 0363 - CT Lung Cancer Screening ?? DIAGNOSIS: ??ENCNTR SCREEN FOR MALIGNANT NEOPLASM OF CLINICAL HISTORY: ?? SCREENING OF RESP ORGANS RESULT: EXAM: ??CT OF THE THORAX WITHOUT CONTRAST HISTORY: ??76-year-old male with 20 years of smoking history. TECHNIQUE: CT of the thorax was performed without intravenous contrast medium utilizing low-dose lung cancer screening protocol. The study was reconstructed into 2 mm axial images utilizing lung and soft tissue filters. The lack of intravenous contrast medium limits the evaluation for focal visceral lesions and intravascular pathology. FINDINGS: ??Moderate paraseptal and centrilobular emphysematous lung changes are present in the lungs with bilateral upper lobe predominance. There is moderate pleural parenchymal scarring at the lung apices. Multifocal nodular areas of nodular scarring/fibrotic changes are evident at the lung apices as well as within the posterior and posterolateral aspects of the upper lobes. A 3 mm pleural-based pulmonary nodule is present in the left upper lobe anterolaterally, best seen on series 3, image 46. Tiny calcified granulomas are evident in the left lower lobe medially, best seen on series 3, images 76 through 83. No pulmonary mass, pleural effusion, pneumothorax, or acute focal consolidation is identified. The heart is not enlarged. There is no pericardial effusion. Coronary arterial calcifications are present. Calcifications are present at the aortic valve annulus and mitral valve annulus. The thoracic aorta is nonaneurysmal. Atherosclerotic calcifications are noted scattered throughout the thoracic aorta. The central pulmonary arteries are normal in caliber. The visualized thyroid is unremarkable. No supraclavicular lymphadenopathy is identified. No enlarged axillary lymph nodes are identified. Calcified bilateral hilar lymph nodes are evident related to old healed granulomatous disease. A tiny calcified granuloma is present in the right lower lobe posterolaterally, best seen on series 2, image 121. Nonenlarged mediastinal lymph nodes are present, including a subcarinal lymph node measuring up to 0.9 cm in short axis. Moderate bilateral gynecomastia is present. Calcified splenic granulomata are evident. The visualized kidneys demonstrate lobulated contours, which is incompletely evaluated on this examination but may suggest bilateral renal cysts. There is mild symmetric bilateral perinephric fat stranding likely related to chronic lymphatic insufficiency. The kidneys appear mildly atrophic. Colonic diverticulosis is present within the visualized colon in the upper abdomen. The pancreas is mildly atrophic. IMPRESSION: ? 1. 3 MM PULMONARY NODULE IN THE LEFT UPPER LOBE. SUBCENTIMETER CALCIFIED GRANULOMAS IN THE LEFT LOWER LOBE AND RIGHT LOWER LOBE. 2. MODERATE PARASEPTAL AND CENTRILOBULAR EMPHYSEMATOUS LUNG CHANGES WITH BILATERAL UPPER LOBE PREDOMINANCE. 3. MODERATE PLEURAL PARENCHYMAL SCARRING AT THE LUNG APICES WELL WITHIN THE SUPERIOR UPPER LOBES, PARTICULARLY POSTERIORLY AND POSTEROLATERALLY WITHIN THE UPPER LOBES. SOME OF THE AREAS OF SCARRING/FIBROSIS IN THE UPPER LOBES DEMONSTRATE NODULARITY BILATERALLY. 4. 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 CALCIFIED SPLENIC GRANULOMATA ARE ALSO EVIDENT. 5. BILATERAL RENAL CYSTS ARE SUGGESTED BUT ARE INCOMPLETELY EVALUATED ON THIS CT OF THE THORAX WITHOUT CONTRAST. FURTHER EVALUATION WITH A DEDICATED BILATERAL RENAL ULTRASOUND ON A NONEMERGENT BASIS IS RECOMMENDED. 6. COLONIC DIVERTICULOSIS. 7. CORONARY ARTERIAL CALCIFICATIONS. LUNG RADS CATEGORY 2 - BENIGN APPEARANCE OR BEHAVIOR. THE 3 MM LEFT UPPER LOBE PULMONARY NODULE HAS A VERY LOW LIKELIHOOD OF BECOMING A CLINICALLY ACTIVE CANCER DUE TO ITS VERY SMALL SIZE. 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 ANNUAL SCREENING WITH LOW-DOSE CT OF THE THORAX IN 12 MONTHS IS RECOMMENDED. PARISH NURSE: ??KG2 TRANSCRIBE DATE/TIME: ??Dec ??2016 ??3:02P RADIOLOGIST: ??REY BRANCH M.D. ??READ ON: ??Dec ??2016 ??2:44P ORDERING DR: CATY CHANDRA M.D. ? THIS DOCUMENT HAS BEEN ELECTRONICALLY SIGNED BY: ??REY BRANCH M.D. ??ON: ??Dec ??2016 ??3:11P Attending: ??ALEKS, ??CATY Requesting: ??ALEKS, ??CATY Requesting Fax: ??[phone] Attending Fax: ??[phone] Attending ID: ??[id number] Requesting ID: ??[id number] Report To 1 ID: ?? Report To 1 Name: ??, ?? Report To 1 FAX: ??-- Report To 2 ID: ?? Report To 2 Name: ??, ?? Report To 2 FAX: ??-- NextGen Order #: ?? Procedure Note Provider, MD Shilo - 03/18/2017 DATE OF EXAM: Dec 18 2016 11:23AM Acc#: [id number] ECT 0363 - CT Lung Cancer Screening DIAGNOSIS: ENCNTR SCREEN FOR MALIGNANT NEOPLASM OF CLINICAL HISTORY: SCREENING OF RESP ORGANS RESULT: EXAM: CT OF THE THORAX WITHOUT CONTRAST HISTORY: 76-year-old male with 20 years of smoking history. TECHNIQUE: CT of the thorax was performed without intravenous contrast medium utilizing low-dose lung cancer screening protocol. The study was reconstructed into 2 mm axial images utilizing lung and soft tissue filters. The lack of intravenous contrast medium limits the evaluation for focal visceral lesions and intravascular pathology. FINDINGS: Moderate paraseptal and centrilobular emphysematous lung changes are present in the lungs with bilateral upper lobe predominance. There is moderate pleural parenchymal scarring at the lung apices. Multifocal nodular areas of nodular scarring/fibrotic changes are evident at the lung apices as well as within the posterior and posterolateral aspects of the upper lobes. A 3 mm pleural-based pulmonary nodule is present in the left upper lobe anterolaterally, best seen on series 3, image 46. Tiny calcified granulomas are evident in the left lower lobe medially, best seen on series 3, images 76 through 83. No pulmonary mass, pleural effusion, pneumothorax, or acute focal consolidation is identified. The heart is not enlarged. There is no pericardial effusion. Coronary arterial calcifications are present. Calcifications are present at the aortic valve annulus and mitral valve annulus. The thoracic aorta is nonaneurysmal. Atherosclerotic calcifications are noted scattered throughout the thoracic aorta. The central pulmonary arteries are normal in caliber. The visualized thyroid is unremarkable. No supraclavicular lymphadenopathy is identified. No enlarged axillary lymph nodes are identified. Calcified bilateral hilar lymph nodes are evident related to old healed granulomatous disease. A tiny calcified granuloma is present in the right lower lobe posterolaterally, best seen on series 2, image 121. Nonenlarged mediastinal lymph nodes are present, including a subcarinal lymph node measuring up to 0.9 cm in short axis. Moderate bilateral gynecomastia is present. Calcified splenic granulomata are evident. The visualized kidneys demonstrate lobulated contours, which is incompletely evaluated on this examination but may suggest bilateral renal cysts. There is mild symmetric bilateral perinephric fat stranding likely related to chronic lymphatic insufficiency. The kidneys appear mildly atrophic. Colonic diverticulosis is present within the visualized colon in the upper abdomen. The pancreas is mildly atrophic. IMPRESSION: 1. 3 MM PULMONARY NODULE IN THE LEFT UPPER LOBE. SUBCENTIMETER CALCIFIED GRANULOMAS IN THE LEFT LOWER LOBE AND RIGHT LOWER LOBE. 2. MODERATE PARASEPTAL AND CENTRILOBULAR EMPHYSEMATOUS LUNG CHANGES WITH BILATERAL UPPER LOBE PREDOMINANCE. 3. MODERATE PLEURAL PARENCHYMAL SCARRING AT THE LUNG APICES WELL WITHIN THE SUPERIOR UPPER LOBES, PARTICULARLY POSTERIORLY AND POSTEROLATERALLY WITHIN THE UPPER LOBES. SOME OF THE AREAS OF SCARRING/FIBROSIS IN THE UPPER LOBES DEMONSTRATE NODULARITY BILATERALLY. 4. 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 CALCIFIED SPLENIC GRANULOMATA ARE ALSO EVIDENT. 5. BILATERAL RENAL CYSTS ARE SUGGESTED BUT ARE INCOMPLETELY EVALUATED ON THIS CT OF THE THORAX WITHOUT CONTRAST. FURTHER EVALUATION WITH A DEDICATED BILATERAL RENAL ULTRASOUND ON A NONEMERGENT BASIS IS RECOMMENDED. 6. COLONIC DIVERTICULOSIS. 7. CORONARY ARTERIAL CALCIFICATIONS. LUNG RADS CATEGORY 2 - BENIGN APPEARANCE OR BEHAVIOR. THE 3 MM LEFT UPPER LOBE PULMONARY NODULE HAS A VERY LOW LIKELIHOOD OF BECOMING A CLINICALLY ACTIVE CANCER DUE TO ITS VERY SMALL SIZE. 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 ANNUAL SCREENING WITH LOW-DOSE CT OF THE THORAX IN 12 MONTHS IS RECOMMENDED. PARISH NURSE: CRISTÓBAL TRANSCRIBE DATE/TIME: Dec 18 2016 3:02P RADIOLOGIST: REY BRANCH M.D. READ ON: Dec 18 2016 2:44P ORDERING DR: CATY CHANDRA M.D. THIS DOCUMENT HAS BEEN ELECTRONICALLY SIGNED BY: REY BRANCH M.D. ON: Dec 18 2016 3:11P Attending: CATY CHANDRA Requesting: CATY CHANDRA Requesting Attending Attending ID: [id number] Requesting ID: [id number] Report To 1 ID: Report To 1 Name: , Report To 1 FAX: -- Report To 2 ID: Report To 2 Name: , Report To 2 FAX: -- NextGen Order #: us Historical Provider MD BARR CT PROCEDURES Final R esult documented in this encounter Visit Diagnoses Diagnosis Encounter for screening for malignant neoplasm of respiratory organs Solitary pulmonary nodule Pulmonary fibrosis (CMS/HCC) (HCC) Postinflammatory pulmonary fibrosis Other emphysema (HCC) Other emphysema Centrilobular emphysema (HCC) Other disorders of lung Other nonspecific abnormal finding of lung field Other specified noninfective disorders of lymphatic vessels and lymph nodes Other diseases of spleen Diverticulosis of large intestine without perforation or abscess without bleeding 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
--- OUTSIDE RECORDS SUMMARY | 2024-10-26 01:18 | XMS_ITS | Encounter Summary ---
Author Organization [facility] Address [address] [place] [address] Care Team Providers Care Dietetic Tech Name Role Phone Cassius London MD Primary Care Provider + Reason for Referral * Diagnostic Imaging (Routine) - Closed Specialty Diagnoses / Procedures Referred By Italia valles Referred To Contact Radiology Diagnoses Solitary pulmonary nodule Procedures CT Chest WO Contrast Andrey Uribe MD Phone: tel: fax: [address] [phone] Referral ID Status Reason Start Date Expiration Date Visits Re quested Visits Authorized [id number] Closed 02/03/2019 08/14/2020 1 1 Reason for Visit * Diagnostic Imaging (Routine) - Closed Specialty Diagnoses / Procedures Referred By Italia valles Referred To Contact Radiology Diagnoses Solitary pulmonary nodule Procedures CT Chest WO Contrast Andrey Uribe MD Phone: tel: fax: [address] [phone] Referral ID Status Reason Start Date Expiration Date Visits Re quested Visits Authorized [id number] Closed 02/03/2019 08/14/2020 1 1 Encounter Details Date Type Department Care Team (Latest Contact Info) Description 03/03/2019 7:29 AM CDT - 03/03/2019 9:35 AM CDT Hospital Encounter [facility] [address] [place] [address], [place] [address] [place] [address] [facility] [address] [place] [address] Solitary pulmonary nodule Discharge Disposition: Discharge to [...] on file 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 90 tablet 07/29/2017 [id number] ic-vit K-lycop (ONE-A-DAY MEN'S MULTIVITAMIN) 400-20-300 mcg [...] CONTRAST Schedule Routine, Read Routine (OP Routine) 03/03/2019 7:57 AM CDT Solitary pulmonary nodule documented in this encounter Results * CT Chest WO Contrast (03/03/2019 7:57 AM CDT) Anatomical Region Laterality Modality Body N/A Computed Tomogra phy 03/03/2019 8:59 AM CDT Impressions 03/03/2019 9:09 AM CDT 1. ??MODERATE EMPHYSEMATOUS CHANGES IN THE LUNGS. 2. ??BIAPICAL PLEURAL AND PARENCHYMAL SCARRING IS STABLE. 3. ??SMALL BILATERAL UPPER LOBE PULMONARY NODULES ARE STABLE. 4. ??NO EVIDENCE OF A NEW PULMONARY NODULE OR ADENOPATHY IN THE CHEST. 5. ??CORONARY ARTERY DISEASE AND AORTIC ATHEROSCLEROSIS. Electronically signed by: Ab Riddle M.D. Narrative 03/03/2019 9:09 AM CDT RESULT: HISTORY: Follow-up right upper lobe pulmonary nodule. EXAMINATION: CT CHEST WO CONTRAST DATE: 03/03/2019 7:45 AM COMPARISON: 08/12/2018 TECHNIQUE: Transaxial computed tomographic images of the chest were obtained without intravenous contrast. Multiplanar coronal and sagittal images were reformatted. FINDINGS: The lungs are well-expanded. ??There are moderate emphysematous changes in the lungs. ??Biapical pleural and parenchymal scarring is unchanged. ??7 mm nodule in the medial right upper lobe (image 44) is unchanged. ??3 mm pleural-based nodule in the lateral left upper lobe (image 52) is unchanged. ??No evidence of a new pulmonary nodule. ??No evidence of an active pulmonary infiltrate or pleural effusion. The heart size is normal. ??There is coronary artery calcification. There are mild atherosclerotic changes in the thoracic aorta. ??No evidence of mediastinal adenopathy. ??Scans through the upper abdomen are unremarkable. ??No significant bony abnormality is seen. Procedure Note Ab Riddle MD - 03/03/2019 RESULT: HISTORY: Follow-up right upper lobe pulmonary nodule. EXAMINATION: CT CHEST WO CONTRAST DATE: 03/03/2019 7:45 AM COMPARISON: 08/12/2018 TECHNIQUE: Transaxial computed tomographic images of the chest were obtained without intravenous contrast. Multiplanar coronal and sagittal images were reformatted. FINDINGS: The lungs are well-expanded. There are moderate emphysematous changes in the lungs. Biapical pleural and parenchymal scarring is unchanged. 7 mm nodule in the medial right upper lobe (image 44) is unchanged. 3 mm pleural-based nodule in the lateral left upper lobe (image 52) is unchanged. No evidence of a new pulmonary nodule. No evidence of an active pulmonary infiltrate or pleural effusion. The heart size is normal. There is coronary artery calcification. There are mild atherosclerotic changes in the thoracic aorta. No evidence of mediastinal adenopathy. Scans through the upper abdomen are unremarkable. No significant bony abnormality is seen. IMPRESSION: 1. MODERATE EMPHYSEMATOUS CHANGES IN THE LUNGS. 2. BIAPICAL PLEURAL AND PARENCHYMAL SCARRING IS STABLE. 3. SMALL BILATERAL UPPER LOBE PULMONARY NODULES ARE STABLE. 4. NO EVIDENCE OF A NEW PULMONARY NODULE OR ADENOPATHY IN THE CHEST. 5. CORONARY ARTERY DISEASE AND AORTIC ATHEROSCLEROSIS. Electronically signed by: Ab Riddle M.D. Andrey Uribe MD IM CT PROCEDURES Marah l Result documented in this encounter Visit Diagnoses Diagnosis Solitary pulmonary nodule documented in this encounter Care Teams Dietetic Tech Relationship Specialty Start Date End Date Cassius London MD [address] [facility] [place] [id number] PCP - General 02/06/17 documented as of this encounter
--- OUTSIDE RECORDS SUMMARY | 2024-10-26 01:18 | XMS_ITS | Encounter Summary ---
Author Organization [facility] Healthcare Address [address] [place] [address] Care Team Providers Care Educational Technician Name Role Phone Cassius London MD Primary Care Provider + Encounter Details Date Type Department Care Team (Late st Contact Info) Description 12/01/2017 8:00 AM RADIO DISPATCHER Lab [address] [address] Cassius London MD [facility] [place] [address] Discharge Disposition: Discharge to home or self care Social History Tobacco Use Types Packs/Day Years Used Date Smoking Tobacco: Former Cigarettes Q uit: 2012 Smokeless Tobacco: Never Alcohol Use Standard Drinks/Week Comments No 0 (1 standard drink = 0.6 oz pur e alcohol) Sex and Gender Information Value Date Recorded Sex Assigned at Not on file 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 Gender Identity Not on file Sexual Orientation Not on file documented as of this encounter Discharge Disposition Disposition Code Departure Means Destination Discharge to home or self care documented in this encounter Plan of Treatment Not on file documented as of this encounter Procedures Procedure Name Priority Date/Time Associated Diagnosis Comments DISCHARGE LABORATORY CUMULATIVE REPORT 12/02/2017 12:00 AM RADIO DISPATCHER EGFR Routine 12/01/2017 8:05 AM RADIO DISPATCHER LIPID PANEL Routine 12/01/2017 8:05 AM RADIO DISPATCHER COMPREHENSIVE METABOLIC PANEL Routine 12/01/2017 8:05 AM RADIO DISPATCHER documented in this encounter Results * DISCHARGE LABORATORY CUMULATIVE REPORT (12/02/2017 12:00 AM RADIO DISPATCHER) Narrative 12/02/2017 12:00 AM RADIO DISPATCHER Ordered by an unspecified provider. us Historical Provider LAB BLOOD ORDERABLES Marah l Result * eGFR (12/01/2017 8:05 AM RADIO DISPATCHER) eGFR >60 mL/min/1.7 3 m2 NNEKA PICHARDO (ALBERTO) Comment: Interpretive Data Reference Interval Normal ?>/= 90 mL/min/1.73m2 Mildly decreased* ? 60 - 89 mL/min/1.73m2 Mildly to moderately decreased ?45 - 59 mL/min/1.73m2 Moderately to severely decreased ??30 - 44 mL/min/1.73m2 Severely decreased ?15 - 29 mL/min/1.73m2 Kidney Failure ?< 15 ??mL/min/1.73m2 *Relative to young adult level If -[place] multiply value by 1.16. Estimated glomerular filtration rate is determined by the CKD-EPI equation recommended by the National Kidney Foundation (KDIGO 2012 Clinical Practice Guideline for the Evaluation and Management of Chronic Kidney Disease. Kidney Intnl Suppl Nov 2012;3:1). The CKD-EPI equation should not be used for patients with unstable renal function and has not been validated in children and those over 70. Current interpretive data was last reviewed 2016. Blood specimen (specimen) 12/01/2017 8:05 AM RADIO DISPATCHER 12/01/2017 8:23 AM RADIO DISPATCHER Narrative NNEKA PICHARDO (ALBERTO) - 12/01/2017 8:57 AM RADIO DISPATCHER us Cassius London MD LAB BLOOD ORDERABLES Fin al Result NNEKA PICHARDO (ALBERTO) 1 [facility] [place] [address] * Lipid panel (12/01/2017 8:05 AM RADIO DISPATCHER) Cholesterol 146 40 - 199 mg/dL NNEKA PICHARDO (ALBERTO) Comment: Interpretive Data Desirable: ??Less than 200 mg/dl ? Borderline High: ?200 - 239 mg/dl ? High: ??Greater than ?? 239 mg/dl Current interpretive data was last revised on 2015. Triglycerides 122.0 <=150.0 mg/dL NNEKA PICHARDO (ALBERTO) Comment: Interpretive Data Normal: ? Less than 150 mg/dl Borderline high: ??150-199 mg/dl ?? High: ? 200-499 mg/dl ? Very high: ??Greater than or equal to 500 mg/dl Current interpretive data was last revised on 2017. HDL 51 40 - 60 mg/dL NNEKA PICHARDO (ALBERTO) Comment: Interpretive Data Low HDL Cholesterol: ? Less than 40 mg/dl Normal HDL Cholesterol: ??40-60 mg/dl High HDL Cholesterol: ?Greater than 60 mg/dl Current interpretive data was last revised on 2015. LDL, calculated 71 mg/dL AUGUSTIN PICHARDO (ALBERTO) Comment: Interpretive Data Optimal ? Less than 100 mg/dL ? Near optimal/Above optimal ??100 - 129 mg/dL ? Borderline high ? 130 - 159 mg/dL ? High ?160 - 189 mg/dL ? Very high ? Greater than or = 190 mg/dL ? LDL values are not valid when the total Triglyceride is greater than 300 mg/dL. Current interpretive data was last revised on 2015. Non-HDL Cholesterol 95 mg/dL NNEKA PICHARDO (ALBERTO) Comment: Interpretive Data Optimal ? Less than 130 mg/dL Low Risk ?130 - 159 mg/dL Moderate Risk ? 160 - 189 mg/dL High Risk ? Greater than or equal to 190 mg/dL Current interpretive data was last revised on 2015. Blood specimen (specimen) 12/01/2017 8:05 AM RADIO DISPATCHER 12/01/2017 8:23 AM RADIO DISPATCHER Narrative NNEKA PICHARDO (ALBERTO) - 12/01/2017 8:57 AM RADIO DISPATCHER us Cassius London MD LAB BLOOD ORDERABLES Fin al Result NNEKA PICHARDO (REW) 1 [facility] Department of Laboratories [place], [place] [id number] * Comprehensive metabolic panel (12/01/2017 8:05 AM RADIO DISPATCHER) Sodium 143 135 - 145 mmol/L [facility] (ALBERTO) Potassium, pl 4.0 3.3 - 4.9 mmol/L [facility] (ALBERTO) CO2 30 22 - 32 mmol/L [facility] (ALBERTO) BUN 23 8 - 25 mg/dL [facility] (AL[place]ERTO) Glucose 105 70 - 199 mg/dL [facility] (ALBERTO) Comment: Interpretive Data Fasting glucose [...] Current interpretive data was last revised 2017. Creatinine 1.03 0.80 - 1.30 mg/dL [facility] (ALBERTO) Calcium 9.2 8.5 - 10.3 mg/dL [facility] ([place]ERT[place]) Chloride 102 97 - 110 mmol/L [facility] ([place]ERT[place]) Albumin 3.6 3.5 - 5.0 g/dL [facility] ([place]ERTO) AST 17 10 - 50 Units/L [facility] ([place]ERTO) Comment:Hemolysis present. R esults may be affected. ALT 16 7 - 55 Units/L [facility] (AL[place]ERTO) Alk phos 76 40 - 130 Units/L [facility] ([place]ERT[place]) Bilirubin, total 0.4 0.1 - 1.2 mg/dL [facility] ([place]ERT[place]) Protein, pl 6.9 6.5 - 8.5 g/dL [facility] ([place]ERTO) Anion gap 11 2 - 15 mmol/L [facility] ([place]ERTO) Blood specimen (specimen) 12/01/2017 8:05 AM RADIO DISPATCHER 12/01/2017 8:23 AM RADIO DISPATCHER Narrative [facility] (ALBERTO) - 12/01/2017 8:57 AM RADIO DISPATCHER us Cassius London MD LAB BLOOD ORDERABLES Fin al Result NNEKA PICHARDO (ALBERTO) 1 [facility] [place] [address] documented in this encounter Visit Diagnoses Not on filedocumented in this encounter Care Teams Educational Technician Relationship Specialty Start Date End Date Cassius London MD [address] [facility] [place] [address] PCP - General 02/06/17 documented as of this encounter
--- OUTSIDE RECORDS SUMMARY | 2024-10-26 01:18 | XMS_ITS | Encounter Summary ---
Author Organization [facility] Healthcare Address [facility] [place] [address] Care Team Providers Care Conference Specialist Name Role Phone Cassius London MD Primary Care Provider + Encounter Details Date Type Department Care Team (Late st Contact Info) Description 07/24/2017 5:35 PM CDT Lab [address] [address] Routine medical exam Social History Tobacco Use Types Packs/Day Years Used Date Smoking Tobacco: Former Alcohol Use Standard Drinks/Week Comments No 0 (1 standard drink = 0.6 oz pur e alcohol) Sex and Gender Information Value Date Recorded Sex Assigned at Not on file 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 Gender Identity Not on file Sexual Orientation Not on file documented as of this encounter Progress Notes * Cassius London MD - 07/24/2017 5:35 PM CDT Vit d protocol documented in this encounter Plan of Treatment Not on file documented as of this encounter Procedures Procedure Name Priority Date/Time Associated Diagnosis Comments PSA SCREEN Routine 07/24/2017 7:27 AM CDT Routine medical exam LIPID PANEL WITH REFLEX TO DIRECT LDL Routine 07/24/2017 7:27 AM CDT Routine medical exam URINALYSIS AND REFLEX TO MICROSCOPIC AND CULTURE Routine 07/24/2017 7:27 AM CDT Routine medical exam CBC WITH AUTO DIFFERENTIAL Routine 07/24/2017 7:27 AM CDT Routine medical exam VITAMIN D 25 HYDROXY Routine 07/24/2017 7:27 AM CDT Routine medical exam TSH Routine 07/24/2017 7:27 AM CDT Routine medical exam T4, FREE Routine 07/24/2017 7:27 AM CDT Routine medical exam CREATINE KINASE (CK), TOTAL Routine 07/24/2017 7:27 AM CDT Routine medical exam COMPREHENSIVE METABOLIC PANEL Routine 07/24/2017 7:27 AM CDT Routine medical exam documented in this encounter Results * (ABNORMAL) Vitamin D 25 hydroxy (07/24/2017 7:27 AM CDT) Vitamin D 25-OH 22(L) 30 - 80 ng/mL NNEKA Blood specimen (specimen) 07/24/2017 7:27 AM CDT 07/24/2017 5:25 PM CDT Cassius London MD LAB BLOOD ORDERABLES Fin al Result [facility] [address] [facility] [place] [address] * T4, free (07/24/2017 7:27 AM CDT) Free T4 1.10 0.61 - 1.12 ng/dL NNEKA Comment: Interpretive Data Ingestion of high dose biotin may cause a false elevation with the Free T4 assay. Contact laboratory for further information. Current interpretive data was last revised on 2017. Blood specimen (specimen) 07/24/2017 7:27 AM CDT 07/24/2017 5:25 PM CDT Cassius London MD LAB BLOOD ORDERABLES Fin al Result Performing Organization Address [facility] de Phone Number [facility] [address] [place] [address] * TSH (07/24/2017 7:27 AM CDT) Thyroid Stimulating Hormone 0.96 0.45 - 5.33 mcIUnit/mL [facility] Blood specimen (specimen) 07/24/2017 7:27 AM CDT 07/24/2017 5:25 PM CDT Cassius London MD LAB BLOOD ORDERABLES Fin al Result Performing Organization Address [facility] de Phone Number [facility] [address] [place] [address] * Creatine kinase (CK), total (07/24/2017 7:27 AM CDT) CK 63 30 - 220 Units/L [facility] Blood specimen (specimen) 07/24/2017 7:27 AM CDT 07/24/2017 5:25 PM CDT Cassius London MD LAB BLOOD ORDERABLES Fin al Result Performing Organization Address [facility] de Phone Number [facility] [address] [place] [address] * Lipid panel with reflex to direct LDL (07/24/2017 7:27 AM CDT) Cholesterol 123 100 - 200 mg/dL [facility] Comment: Interpretive Data Desirable: ?<200 mg/dL Borderline high: ??200-239 mg/dL High: ? >240 mg/dL Current interpretive data was last revised on 2016. Triglycerides 89 10 - 150 mg/dL [facility] Comment: Interpretive Data Desirable: ? < 150 ? mg/dL Borderline High: ? 150 - 199 mg/dL High: ?200 - 499 mg/dL Very High: ? > or = 499 ??mg/dL Current interpretive data was last revised on 2016. HDL 43 40 - 59 mg/dL [facility] Comment: Interpretive Data Less than 40 mg/dL - Low; A major risk factor for heart disease. Greater than or equal to 60 mg/dL - High; ??Considered protective of heart disease. Current interpretive data was last revised on 2016. LDL, calculated 62 60 - 129 mg/dL [facility] Comment: Interpretive Data Optimal: ? < 100 mg/dL Near Optimal: ?100 - 129 mg/dL Borderline High: ?? 130 - 159 mg/dL High: ?> 160 mg/dL Current interpretive data was last revised on 2016. Chol/HDL ratio 3 mg/dL [facility] Blood specimen (specimen) 07/24/2017 7:27 AM CDT 07/24/2017 5:25 PM CDT us Cassius London MD LAB BLOOD ORDERABLES Fin al Result [facility] [address] [place] [address] * (ABNORMAL) Urinalysis reflex to microscopic and culture (07/24/2017 7:27 AM CDT) Color, ur Yellow [facility] Clarity, ur Clear [facility] Specific gravity, ur 1.021 1.001 - 1.033 [facility] pH, ur 5.0 5.0 - 8.0 [facility] Protein, ur ql 1+(A) Negative [facility] Glucose, ur ql Negative Negative [facility] Ketones, ur Negative Negative [facility] Bilirubin, ur Negative Negative [facility] Blood, ur 1+(A) Negative [facility] Urobilinogen, ur <2.0 <2.0 [facility] Nitrites, ur Negative Negative [facility] Leukocyte esterase, ur Negative Negative [facility] Urine 07/24/2017 7:27 AM CDT 07/24/2017 5:25 PM CDT Cassius London MD LAB MICROBIOLOGY - GENER AL ORDERABLES Final Result Performing Organization Address City/[facility] Co de Phone Number NNEKA CARDENAS [address] [facility] [place] [place] [address] * PSA screen (07/24/2017 7:27 AM CDT) Pathologist [facility] PSA-Total 2.61 0.10 - 4.00 ng/mL [facility] Blood specimen (specimen) 07/24/2017 7:27 AM CDT 07/24/2017 5:25 PM CDT Cassius London MD LAB BLOOD ORDERABLES Fin al Result Performing Organization Address [facility] de Phone Number NNEKA CARDENAS [address] [place] [address] * (ABNORMAL) CBC with auto differential (07/24/2017 7:27 AM CDT) Pathologist [facility] WBC 10.53(H) 3.80 - 9.90 K/cumm [facility] RBC 4.39 4.30 - 5.80 M/cumm [facility] Hgb 14.2 13.0 - 17.5 g/dL [facility] Hct 45.5 38.9 - 50.3 % [facility] MCV 103.6(H) 81.3 - 96.4 fL [facility] MCH 32.3 27.1 - 33.3 pg [facility] MCHC 31.2(L) 32.3 - 35.7 g/dL [facility] RDW CV 13.3 11.1 - 14.9 % [facility] RDW SD 51.3(H) 35.7 - 48.1 fL [facility] Plt 333 150 - 400 K/cumm [facility] MPV 10.3 9.1 - 12.3 fL [facility] NRBC 0.0 0.0 - 0.2 % [facility] NRBC abs 0.00 0.00 - 0.01 K/cumm [facility] Blood specimen (specimen) 07/24/2017 7:27 AM CDT 07/24/2017 5:25 PM CDT Cassius London MD LAB BLOOD ORDERABLES Fin al Result Performing Organization Address [facility] Co de Phone Number NNEKA CARDENAS [address] [place] [address] * Comprehensive metabolic panel (07/24/2017 7:27 AM CDT) Sodium 143 135 - 145 mmol/L [facility] Potassium, pl 4.4 3.5 - 5.1 mmol/L [facility] CO2 28 22 - 32 mmol/L [facility] BUN 21 8 - 24 mg/dL [facility] Glucose 102 70 - 199 mg/dL [facility] Creatinine 1.25 0.70 - 1.40 mg/dL [facility] Calcium 9.4 8.4 - 10.5 mg/dL [facility] Chloride 103 100 - 114 mmol/L [facility] Albumin 3.5 3.2 - 4.8 g/dL [facility] AST 21 7 - 40 Units/L [facility] ALT 14 5 - 50 Units/L [facility] Alk phos 63 30 - 110 Units/L [facility] Bilirubin, total 0.40 0.10 - 1.30 mg/dL [facility] Protein, pl 6.6 6.0 - 8.3 g/dL [facility] Anion gap 16 8 - 16 mmol/L [facility] Blood specimen (specimen) 07/24/2017 7:27 AM CDT 07/24/2017 5:25 PM CDT Cassius London MD LAB BLOOD ORDERABLES Fin al Result Performing Organization Address [facility] Co de Phone Number NNEKA CARDENAS [address] [place] [address] documented in this encounter Visit Diagnoses Diagnosis Routine medical exam Routine general medical examination at a health care facility documented in this encounter Care Teams Conference Specialist Relationship Specialty Start Date End Date Cassius London MD [address] [address] [place], [place] [address] PCP - General 02/06/17 documented as of this encounter
--- OUTSIDE RECORDS SUMMARY | 2024-10-26 01:18 | XMS_ITS | Encounter Summary ---
Author Organization [facility] Healthcare Address [address] [place] [address] Care Team Providers Care Stain Dipper Name Role Phone Cassius London MD Primary Care Provider + Encounter Details Date Type Department Care Team (Latest Contact Info) Description 04/15/2018 10:05 AM CDT - 04/15/2018 11:59 PM CDT Hospital Encounter [facility] [address] [place] [address] Andrey Uribe MD [address] [place], [place] [id number] Screening for malignant neoplasm of respiratory organ Discharge Disposition: Discharge to home or self care Social History Tobacco Use Types Packs/Day Years Used Date Smoking Tobacco: Former Cigarettes Q uit: 2011 Smokeless Tobacco: Never Alcohol Use Standard Drinks/Week Comments No 0 (1 standard drink = 0.6 oz pur e alcohol) Sex and Gender Information Value Date Recorded Sex Assigned at Not on file 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 90 tablet 07/29/2017 [id number] ic-vit K-lycop (ONE-A-DAY MEN'S MULTIVITAMIN) 400-20-300 mcg [...] Name Priority Date/Time Associated Diagnosis Comments CT LUNG CANCER SCREENING Schedule Routine, Read Routine (OP Routine) 04/15/2018 12:17 PM CDT Screening for malignant neoplasm of respiratory organ EGFR Routine 04/15/2018 10:38 AM CDT CREATININE, WHOLE BLOOD Routine 04/15/2018 10:38 AM CDT documented in this encounter Results * CT Lung Cancer Screening (04/15/2018 12:17 PM CDT) Anatomical Region Laterality Modality Body N/A Computed Tomogra phy 04/15/2018 12:4 8 PM CDT Impressions 04/15/2018 1:08 PM CDT CATEGORY 3 PER ACR LUNG RADS WITH RIGHT UPPER LOBE 5 MM NODULE. RECOMMEND 6 MONTH FOLLOW-UP LOW-DOSE CT. RIGHT UPPER LOBE PERIBRONCHIAL ILL-DEFINED TREE-IN-BUD AND PATCHY OPACITIES SUGGESTING MODERATE PARASEPTAL AND MILD CENTRILOBULAR EMPHYSEMA. MODERATE BIAPICAL PLEURAL-PARENCHYMAL FIBROSIS. . Electronically signed by: Radha Schultz M.D. Narrative 04/15/2018 1:08 PM CDT RESULT: Examination: CT LUNG CANCER SCREENING Date: 04/15/2018 10:45 AM Clinical History: Screening for malignant respiratory neoplasm. Former smoker 30 years 1 pack per day. ??Quit 5 years. Technique: Computed tomographic images of the chest were obtained in the axial plane without the administration of contrast using low dose lung cancer screening protocol. Coronal reformatted images were performed. Comparison: CT chest 07/29/2017 Findings: The normal heart size noted with trace pericardial effusion. ??Mildly ectatic atherosclerotic aorta is present with calcification especially arch and descending aorta with mild proximal great vessel involvement. ??Mild to moderate coronary artery calcification is seen. Small right left paratracheal nodes again noted. ??Calcified right hilar nodes are present. ??The thyroid is not enlarged. 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 ??Interval 5 mm ovoid mildly irregular right medial apical nodule on image 45 series 4 is seen at site of previous 4 mm ill-defined opacity. ??A left upper lobe 3 mm subpleural nodule on axial image 48 is stable. ??Interval mild right upper lobe peribronchial micronodular tree-in-bud and patchy groundglass opacities are seen especially images 55 through 67 with a small solid irregular 4 mm nodule on image 65. Moderate upper lobe paraseptal emphysema and mild centrilobular emphysema is again seen worse right with mild involvement of the posterior bases. ??There is right basal subpleural reticulation slight increase worse posteriorly with mild traction bronchiectasis suggesting fibrosis. ??No consolidation or effusion is seen. ??There are few calcified granulomas in the left lower lobe and one in the right base again noted.. Procedure Note Radha Schultz MD - 04/15/2018 RESULT: Examination: CT LUNG CANCER SCREENING Date: 04/15/2018 10:45 AM Clinical History: Screening for malignant respiratory neoplasm. Former smoker 30 years 1 pack per day. Quit 5 years. Technique: Computed tomographic images of the chest were obtained in the axial plane without the administration of contrast using low dose lung cancer screening protocol. Coronal reformatted images were performed. Comparison: CT chest 07/29/2017 Findings: The normal heart size noted with trace pericardial effusion. Mildly ectatic atherosclerotic aorta is present with calcification especially arch and descending aorta with mild proximal great vessel involvement. Mild to moderate coronary artery calcification is seen. Small right left paratracheal nodes again noted. Calcified right hilar nodes are present. The thyroid is not enlarged. 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 Interval 5 mm ovoid mildly irregular right medial apical nodule on image 45 series 4 is seen at site of previous 4 mm ill-defined opacity. A left upper lobe 3 mm subpleural nodule on axial image 48 is stable. Interval mild right upper lobe peribronchial micronodular tree-in-bud and patchy groundglass opacities are seen especially images 55 through 67 with a small solid irregular 4 mm nodule on image 65. Moderate upper lobe paraseptal emphysema and mild centrilobular emphysema is again seen worse right with mild involvement of the posterior bases. There is right basal subpleural reticulation slight increase worse posteriorly with mild traction bronchiectasis suggesting fibrosis. No consolidation or effusion is seen. There are few calcified granulomas in the left lower lobe and one in the right base again noted.. IMPRESSION: CATEGORY 3 PER ACR LUNG RADS WITH RIGHT UPPER LOBE 5 MM NODULE. RECOMMEND 6 MONTH FOLLOW-UP LOW-DOSE CT. RIGHT UPPER LOBE PERIBRONCHIAL ILL-DEFINED TREE-IN-BUD AND PATCHY OPACITIES SUGGESTING MODERATE PARASEPTAL AND MILD CENTRILOBULAR EMPHYSEMA. MODERATE BIAPICAL PLEURAL-PARENCHYMAL FIBROSIS. . Electronically signed by: Radha Schultz M.D. Andrey Uribe MD IMG CT PROCEDURES Marah l Result * eGFR (04/15/2018 10:38 AM CDT) eGFR >60 mL/min/1.73 m2 NNEKA CARDENAS Blood specimen (specimen) 04/15/2018 10:38 AM CDT 04/15/2018 10:43 AM CDT Narrative NNEKA CARDENAS - 04/15/2018 10:48 AM CDT Andrey Uribe MD LAB BLOOD ORDERABLES F inal Result Performing Organization Address City/[facility] Co de Phone Number NNEKA [address] [facility] [place] [address] * Creatinine, whole blood (04/15/2018 10:38 AM CDT) Creatinine, bld 1.13 0.70 - 1.40 mg/dL [facility] Blood specimen (specimen) 04/15/2018 10:38 AM CDT 04/15/2018 10:38 AM CDT Narrative [facility] - 04/15/2018 10:48 AM CDT Andrey Uribe MD LAB BLOOD ORDERABLES F inal Result Performing Organization Address [facility] de Phone Number NNEKA CARDENAS [address] [facility] [place] [address] documented in this encounter Visit Diagnoses Diagnosis Screening for malignant neoplasm of respiratory organ Special screening for malignant neoplasm of the respiratory organs documented in this encounter Care Teams Stain Dipper Relationship Specialty Start Date End Date Cassius London MD [address] [address] PCP - General 02/06/17 documented as of this encounter
--- OUTSIDE RECORDS SUMMARY | 2024-10-26 01:18 | XMS_ITS | Encounter Summary ---
Author Organization [facility] Healthcare Address [address] [place] [address] Care Team Providers Care Clinical Interviewer Name Role Phone Cassius Blanton MD Primary Care Provider + Encounter Details Date Type Department Care Team (Late st Contact Info) Description 09/01/2017 1:40 PM CDT - 09/01/2017 11:59 PM CDT Hospital Encounter [facility] Cassius Blanton MD [address] [place] [address] Right flank pain Discharge Disposition: Discharge to home or self care Social History Tobacco Use Types Packs/Day Years Used Date Smoking Tobacco: Former Cigarettes Q uit: 2011 Smokeless Tobacco: Never Alcohol Use Standard Drinks/Week Comments No 0 (1 standard drink = 0.6 oz pur e alcohol) Sex and Gender Information Value Date Recorded Sex Assigned at Not on file 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 90 tablet 07/29/2017 ewvdwbaz-udk-oml ic-vit K-lycop (ONE-A-DAY MEN'S MULTIVITAMIN) 400-20-300 mcg [...] documented in this encounter Progress Notes * Cassius Blanton MD - 09/02/2017 10:43 AM CDT Refer to Dr Muñoz re renal mass pt aware * Cassius Blanton MD - 09/02/2017 7:10 AM CDT onphone today documented in this encounter Plan of Treatment Not on file documented as of this encounter Procedures Procedure Name Priority Date/Time Associated Diagnosis Comments US KIDNEY COMPLETE Schedule Routine, Read Routine (OP Routine) 09/01/2017 7:27 PM CDT documented in this encounter Results * US Kidney Complete (09/01/2017 7:27 PM CDT) Anatomical Region Laterality Modality Kidney N/A Ultrasound 09/01/2017 7:27 PM CDT Narrative 09/02/2017 3:46 AM CDT US Kidney(s) 93744 ??Acc#: ??[id number] DATE OF EXAM: ??Sep 01 2017 ?? US Kidney(s) 41355 HISTORY: ??RIGHT FLANK PAIN. ??History of prostate cancer.. COMPARISON: Ultrasound kidneys on 07/04/[address] IVP urogram on 06/14/2015.. TECHNIQUE: Grayscale real-time images of the kidneys and urinary bladder. FINDINGS: Overall image quality is only fair due to body habitus. Right kidney measures 11.3 centimeters length and 5.5 x 5.5 centimeters width. ??A 3.1 x 2.6 x 1.9 cm hypoechoic structure with some enhanced through sound transmission projects medially from the right kidney. ??Previously, there were only tiny subcentimeter cysts in this kidney. ??No other mass, calcification or significant cortical thinning is seen.. ??There is no pelvicaliceal distention. Left kidney measures 11.7 centimeters length and 6.0 x 5.6 centimeters width. ??A 3.9 x 3.7 x 3.7 cm cyst is present at the lateral middle pole of the left kidney. ??No other discrete mass or cyst is seen. ??Detail is not sufficient to assess small exophytic structures projecting posteriorly from midline mid to lower poles on 06/14/2015 CT. ??No calcification or significant cortical thinning is seen. There is no pelvicaliceal distention. Urinary bladder is partially filled. No calculi or other intraluminal filling defects are seen. ??Enlarged prostate gland indents the posterior floor. ??Distal ureters are not seen. IMPRESSION: 1. ??Indeterminate hypoechoic 3.1 cm structure medial mid right kidney; not demonstrated on previous sonogram or CT. 2. ??3.9 cm cyst lateral middle pole left kidney; corresponds to cyst previously seen on CT and ultrasound. 3. ??Left renal detail not sufficient to assess other left renal lesions. 4. ??Prostatomegaly. 5. ??Recommend follow-up CT IVP urogram to reassess the exophytic small posterior left renal lesions. Electronically signed by: Alexander Ashley Jr., M.D. Interpreting Physician: ??DR ALEXANDER ASHLEY M.D. ??Read on: ??Sep 01 2017 10:46P Transcribed by: ??PSC ??On: Sep 01 2017 10:44P Approved Electronically by: ??DR ALEXANDER ASHLEY M.D. ??on: ??Sep 01 2017 10:44P Ordering DR: DR CASSIUS BLANTON Attending DR: DR CASSIUS BLANTON Attending: ??DR CASSIUS BLANTON Requesting: ??DR CASSIUS BLANTON Requesting Fax: ??[phone] Attending Fax: ??[phone] Attending ID: ??[id number] Requesting ID: ??[id number] Report To 1 ID: ??[id number] Report To 1 Name: ??DR CASSIUS BLANTON Report To 1 FAX: ??[phone] [employer] Order #: ??[id number] Procedure Note Miscellaneous, Not In File - 09/01/2017 US Kidney(s) 40052 Acc#: [id number] DATE OF EXAM: Sep 01 2017 US Kidney(s) 14383 HISTORY: RIGHT FLANK PAIN. History of prostate cancer.. COMPARISON: Ultrasound kidneys on 07/04/[address] IVP urogram on 06/14/2015.. TECHNIQUE: Grayscale real-time images of the kidneys and urinary bladder. FINDINGS: Overall image quality is only fair due to body habitus. Right kidney measures 11.3 centimeters length and 5.5 x 5.5 centimeters width. A 3.1 x 2.6 x 1.9 cm hypoechoic structure with some enhanced through sound transmission projects medially from the right kidney. Previously, there were only tiny subcentimeter cysts in this kidney. No other mass, calcification or significant cortical thinning is seen.. There is no pelvicaliceal distention. Left kidney measures 11.7 centimeters length and 6.0 x 5.6 centimeters width. A 3.9 x 3.7 x 3.7 cm cyst is present at the lateral middle pole of the left kidney. No other discrete mass or cyst is seen. Detail is not sufficient to assess small exophytic structures projecting posteriorly from midline mid to lower poles on 06/14/2015 CT. No calcification or significant cortical thinning is seen. There is no pelvicaliceal distention. Urinary bladder is partially filled. No calculi or other intraluminal filling defects are seen. Enlarged prostate gland indents the posterior floor. Distal ureters are not seen. IMPRESSION: 1. Indeterminate hypoechoic 3.1 cm structure medial mid right kidney; not demonstrated on previous sonogram or CT. 2. 3.9 cm cyst lateral middle pole left kidney; corresponds to cyst previously seen on CT and ultrasound. 3. Left renal detail not sufficient to assess other left renal lesions. 4. Prostatomegaly. 5. Recommend follow-up CT IVP urogram to reassess the exophytic small posterior left renal lesions. Electronically signed by: Alexander Ashley Jr., M.D. Interpreting Physician: DR ALEXANDER ASHLEY M.D. Read on: Sep 01 2017 10:46P Transcribed by: [facility] On: Sep 01 2017 10:44P Approved Electronically by: SUDHEER Garner, DR PENA on: Sep 01 2017 10:44P Ordering DR: DR CASSIUS BLANTON Attending DR: DR CASSIUS BLANTON Attending: DR CASSIUS BLANTON Requesting: DR CASSIUS BLANTON Requesting Attending Attending ID: [id number] Requesting ID: [id number] Report To 1 ID: [id number] Report To 1 Name: DR CASSIUS BLANTON Report To 1 FAX: [phone] [employer] Order #: [id number] us Cassius Blanton MD IMG US PROCEDURES Final Result documented in this encounter Visit Diagnoses Diagnosis Right flank pain Abdominal pain, unspecified site documented in this encounter Care Teams Clinical Interviewer Relationship Specialty Start Date End Date Cassius Blanton MD [address] [place] [address] PCP - General 02/06/17 documented as of this encounter
--- OUTSIDE RECORDS SUMMARY | 2024-10-26 01:18 | XMS_ITS | Encounter Summary ---
Author Organization [facility] Medical Group Address [address] [place] [address] Care Team Providers Care Reliability Specialist Name Role Phone Cassius London MD Primary Care Provider + Encounter Details Date Type Department Care Team (Late st Contact Info) Description 07/24/2017 7:15 AM CDT Lab [facility] [address] [place] [address] [address] [place] [address] Benign hypertension Social History Tobacco Use Types Packs/Day Years Used Date Smoking Tobacco: Former Alcohol Use Standard Drinks/Week Comments No 0 (1 standard drink = 0.6 oz pur e alcohol) Sex and Gender Information Value Date Recorded Sex Assigned at Not on file 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
--- OUTSIDE RECORDS SUMMARY | 2024-10-26 01:18 | XMS_ITS | Encounter Summary ---
Author Organization [facility] Medical Group Address [address] [place] [address] Care Team Providers Care Day Care Aide Name Role Phone Cassius London MD Primary Care Provider + Encounter Details Date Type Department Care Team (Late st Contact Info) Description 09/02/2017 Telephone [facility] [address] [place] [address] Cassius London MD [address] [place] [address] Social History Tobacco Use Types Packs/Day Years Used Date Smoking Tobacco: Former Cigarettes Q uit: 2012 Smokeless Tobacco: Never Alcohol Use Standard Drinks/Week Comments No 0 (1 standard drink = 0.6 oz pur e alcohol) Sex and Gender Information Value Date Recorded Sex Assigned at Not on file 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 Toni [place] office is closing, they suggested he call the [facility] office to make appointment. Patient said he already sees Dr. Quezada, made appointment for 09/07/17 at 11am * Telephone Encounter - Vidhya Polanco - 09/02/2017 2:54 PM CDT lmom-transfer to Vidhya please-calling about urologist referral * Telephone Encounter - Suzan Delarosa MA - 09/02/2017 10:42 AM CDT Transferred message to * Telephone Encounter - Suzan Delarosa MA - 09/02/2017 10:42 AM CDT ----- Message from Cassius London MD sent at 09/02/2017 7:10 AM CDT ----- onphone today documented in this encounter Plan of Treatment Not on file documented as of this encounter Visit Diagnoses Not on filedocumented in this encounter Care Teams Day Care Aide Relationship Specialty Start Date End Date Cassius London MD [address] [place] [address] PCP - General 02/06/17 documented as of this encounter
--- OUTSIDE RECORDS SUMMARY | 2024-10-26 01:18 | XMS_ITS | Encounter Summary ---
Author Organization [facility] Medical Group Address [address] [place] [address] Care Team Providers Care Paper Machine Tender Name Role Phone Cassius London MD Primary Care Provider + Encounter Details Date Type Department Care Team (Latest Contact Info) Description 08/12/2017 2:32 PM CDT - 08/12/2017 11:59 PM CDT Hospital Encounter [facility] [address] [place] [address] [address] [place] [address] Right flank pain Discharge Disposition: Discharge to home or self care Social History Tobacco Use Types Packs/Day Years Used Date Smoking Tobacco: Former Alcohol Use Standard Drinks/Week Comments No 0 (1 standard drink = 0.6 oz pur e alcohol) Sex and Gender Information Value Date Recorded Sex Assigned at Not on file 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 90 tablet 07/29/2017 adcuhjpw-qnw-tii ic-vit K-lycop (ONE-A-DAY MEN'S MULTIVITAMIN) 400-20-300 mcg tablet Take one by mouth one time per day 0 0 08/23/2008 cephalexin (KEFLEX) 500 mg capsule Take 1 capsule (500 mg total) by mouth 4 (four) times a day for 7 days. 28 capsule 08/12/2017 7 amLODIPine-valsa rtan-hcthiazid (EXFORGE HCT) 5-160-12.5 mg tablet [...] Procedure Name Priority Date/Time Associated Diagnosis Comments XR CHEST PA LATERAL 2 VIEWS Schedule Routine, Read Routine (OP Routine) 08/12/2017 2:42 PM CDT Right flank pain documented in this encounter Results * XR Chest Pa Lateral 2 Views (08/12/2017 2:42 PM CDT) Anatomical Region Laterality Modality Body, Chest N/A Radiographic Meseret ging Cassius London MD IMG XR PROCEDURES Edited Result - Final documented in this encounter Visit Diagnoses Diagnosis Right flank pain Abdominal pain, unspecified site documented in this encounter Care Teams Paper Machine Tender Relationship Specialty Start Date End Date Cassius London MD [address] [place] [address] PCP - General 02/06/17 documented as of this encounter
--- OUTSIDE RECORDS SUMMARY | 2024-10-26 01:18 | XMS_ITS | Encounter Summary ---
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 90 tablet 07/29/2017 mtctobfu-pql-bha ic-vit K-lycop (ONE-A-DAY MEN'S MULTIVITAMIN) 400-20-300 mcg [...] CONTRAST Schedule Routine, Read Routine (OP Routine) 08/12/2018 10:08 AM CDT Solitary pulmonary nodule documented in this encounter Results * CT Chest WO Contrast (08/12/2018 10:08 AM CDT) Anatomical Region Laterality Modality Body N/A Computed Tomogra phy 08/12/2018 12:0 0 PM CDT Impressions 08/12/2018 12:23 PM CDT 1. ??There is a stable 7 mm nodule in the right upper lobe medially. Recommend follow-up in 6-9 months. 2. ??The other previously described nodules and groundglass opacities in the right lung have resolved. 3. ??Emphysematous changes are noted. Electronically signed by: Eric Herrera M.D. Narrative 08/12/2018 12:23 PM CDT RESULT: EXAMINATION: CT CHEST WITHOUT CONTRAST Date: 08/12/2018 10:30 AM History: Solitary pulmonary nodule Technique: Transaxial computed tomographic images of the chest were obtained without intravenous contrast. Multiplanar coronal and sagittal images were reformatted. Comparison: 04/15/2018 Findings: Normal heart size. ??No pericardial effusion. ??Coronary vascular calcifications are present. ??Aorta is nonaneurysmal. ??No mediastinal or hilar adenopathy. ??Calcified bilateral hilar lymph nodes are seen. There is redemonstration of the bilateral apical pleural thickening. There is apical predominant paraseptal emphysema, and centrilobular emphysema is seen at the lower lobes. ??No pleural effusion or pneumothorax. ??There is a stable 7 mm nodule in the right upper lobe medially (image 41). ??There is a stable 3 mm subpleural nodule in the left upper lobe (image 48). ??There are tree-in-bud opacities of the right lower lobe peripherally which are nonspecific for small airway infectious or inflammatory disease. ??The previously noted groundglass opacities in the right middle lobe are mostly resolved with minimal residual opacities seen. ??The nodules seen in the right middle lobe on the prior study are resolved consistent with an infectious or inflammatory process. ??No pleural effusion or pneumothorax. ??No acute osseous findings. Colonic diverticulosis is noted. Procedure Note Eric Herrera MD - 08/12/2018 RESULT: EXAMINATION: CT CHEST WITHOUT CONTRAST Date: 08/12/2018 10:30 AM History: Solitary pulmonary nodule Technique: Transaxial computed tomographic images of the chest were obtained without intravenous contrast. Multiplanar coronal and sagittal images were reformatted. Comparison: 04/15/2018 Findings: Normal heart size. No pericardial effusion. Coronary vascular calcifications are present. Aorta is nonaneurysmal. No mediastinal or hilar adenopathy. Calcified bilateral hilar lymph nodes are seen. There is redemonstration of the bilateral apical pleural thickening. There is apical predominant paraseptal emphysema, and centrilobular emphysema is seen at the lower lobes. No pleural effusion or pneumothorax. There is a stable 7 mm nodule in the right upper lobe medially (image 41). There is a stable 3 mm subpleural nodule in the left upper lobe (image 48). There are tree-in-bud opacities of the right lower lobe peripherally which are nonspecific for small airway infectious or inflammatory disease. The previously noted groundglass opacities in the right middle lobe are mostly resolved with minimal residual opacities seen. The nodules seen in the right middle lobe on the prior study are resolved consistent with an infectious or inflammatory process. No pleural effusion or pneumothorax. No acute osseous findings. Colonic diverticulosis is noted. IMPRESSION: 1. There is a stable 7 mm nodule in the right upper lobe medially. Recommend follow-up in 6-9 months. 2. The other previously described nodules and groundglass opacities in the right lung have resolved. 3. Emphysematous changes are noted. Electronically signed by: Eric Herrera M.D. Andrey Uribe MD IMG CT PROCEDURES Marah l Result documented in this encounter Visit Diagnoses Diagnosis Solitary pulmonary nodule documented in this encounter Care Teams Branch Account Executive Relationship Specialty Start Date End Date Cassius London MD [address] [place] [address] PCP - General 02/06/17 documented as of this encounter
--- OUTSIDE RECORDS SUMMARY | 2024-10-26 01:18 | XMS_ITS | Encounter Summary ---
Author Organization [facility] Address [address] [place] [address] Care Team Providers Care Oil House Attendant Name Role Phone Cassius London MD Primary Care Provider + Reason for Referral * Diagnostic Imaging (Routine) - Closed Specialty Diagnoses / Procedures Referred By Contac t Referred To Contact Diagnoses Right flank pain Procedures US Retroperitoneal Complete Cassius London MD Phone: tel: fax: Referral ID Status Reason Start Date Expiration Date Visits Re quested Visits Authorized [id number] Closed 08/12/2017 02/08/2018 1 1 Reason for Visit * Reason Comments Medicare Wellness subsequent EEE cpe Encounter Details Date Type Department Care Team (Late st Contact Info) Description 08/12/2017 1:30 PM CDT Office Visit [facility] [address] [place] [address] [address] [place] [id number] Cassius London MD [facility] [place] [address] Well adult exam (Primary Dx); BMI 30.0-30.9,adult; Right flank pain; Healthcare maintenance; Medication management; Umbilical hernia without obstruction and without gangrene; Diastasis of rectus abdominis; Former smoker, stopped smoking many years ago; Infected sebaceous cyst; Benign prostatic hyperplasia with weak urinary stream; At low risk for fall; Medicare annual wellness visit, subsequent; Chronic obstructive pulmonary disease with acute exacerbation (CMS/HCC); Mixed hyperlipidemia; Benign hypertension; Health examination of defined subpopulation Social History Tobacco Use Types Packs/Day Years Used Date Smoking Tobacco: Former Alcohol Use Standard Drinks/Week Comments No 0 (1 standard drink = 0.6 oz pur e alcohol) Sex and Gender Information Value Date Recorded Sex Assigned at Not on file Legal Sex Male 1:17 PM [employer] Gender Identity Not on file Sexual Orientation Not on file documented as of this encounter Last Filed Vital Signs Vital Sign Reading Time Taken Comments Blood Pressure 120/70 08/12/2017 1:51 PM CDT standing 120/68 Pulse 80 08/12/2017 1:51 PM CDT standing 88 Temperature - - Respiratory Rate 20 08/12/2017 1:51 PM CDT Oxygen Saturation - - Inhaled Oxygen Concentration - - Weight 85.3 kg (188 lb) 08/12/2017 1:51 PM CDT Height 168.3 cm (5' 6.25 ) 08/12/2017 1 :51 PM CDT Body Mass Index 30.12 08/12/2017 1:51 PM CDT documented in this encounter Ordered Prescriptions Prescription Sig Dispense Quantity Refills Last Filled Start Date End Date cephalexin (KEFLEX) 500 mg capsule Take 1 capsule (500 mg total) by mouth 4 (four) times a day for 7 days. 28 capsule 08/12/2017 7 amLODIPine-valsart an-hcthiazid (EXFORGE HCT) 5-160-12.5 mg tablet Take 1 tablet by mouth daily 90 tablet 3 08/12/2017 1 documented in this encounter Progress Notes * Cassius London MD - 08/12/2017 1:30 PM CDT Subjective/Objective Patient ID: Xavier Clarke is a 76 y.o. male. Chief Complaint Medicare Wellness (subsequent ) and EEE (cpe) The patient received their subsequent annual wellness visit under Medicare. Their health risk assessment was updated. Medical family history was updated. Biometric assessment was obtained. A list of current revised as was updated and reviewed. Patient's cognitive functions were screened. The patient received an updated written screening schedule of age appropriate surfaces covered by Medicare fordisease screening. Personal risk factors were identified and discussed personally with the patient.Vaccinations were reviewed and updated were necessary.Advanced directives were discussed with the patient and the [place] uniform do not resuscitate advanced directive form and the [place] short form Living Will form were provided to the patient. HPI No headaches shortness of breath chest pain angina orthopnea PND or edema no palpitations weight has no TIAs claudication.Past, family, social, med, allergies, health maintenance, interim labs and imaging studies reviewed. Please refer to the EHR for details. Review of Systems No fever chills, chills, or sweats. No change in vision. No nasal obstruction or drainage. No sore throat. No goiter. No change in voice. No hoarseness or dysphagia. No angina or chest pain. No dyspnea orthopnea or PND. No palpitations. No cough, sputum, dyspnea, hemoptysis, or wheeze. No chest pain. No dysphagia, dyspepsia, early satiety or abdominal pain. No jaundice. No change in bowel habits, rectal bleeding melena or hematochezia. No diarrhea or constipation. No change incolor of urine or stool. No bleeding no hematuria. No dysuria, incontinence, nocturia. No muscle or joint aches or pains. No joint swelling or deformity. No rashes or skin lesions. No change in hairor nails. No headache. No special sensory loss. No weakness or numbness. No change in coordination.No loss consciousness. No seizures. No history of bleeding or bruising or hemorrhage. No asthma. Noother complaints offered. Vitals: 08/12/17 1351 BP: 120/70 BP Location: Left arm Patient Position: Sitting Pulse: 80 Resp: 20 Weight: 85.3 kg (188 lb) Height: 168.3 cm (5' 6.25 ) Physical Exam The head is atraumatic and normocephalic. Pupils are equal round and react to light and accommodation. Extraocular movements intact. Sclera white. Conjunctiva pink. Ears nose and throat clear mouth is moist. Neck is supple prep showed normal no adenopathy or thyromegaly. Chest clear to percussion auscultation. Heart S1-S2 regular no clear murmur gallop or rub. Abdomen flat soft nontender no mass.Diastasis recti. Small umbilical hernia. CVA negative, No clubbing cyanosis edema or rash. Alert oriented without focal neurolical abnormality. Normal external male genitalia noticed mass just no hernia no goal adenopathy prostate firm smooth symmetric without nodularity slightly large rectal otherw ise negative. He has an infected sebaceous cyst on his back. Office Visit on 08/12/2017 Component Date Value Ref Range Status ??? [facility] Colonoscopy 08/12/2016 Unknown Final Hospital Outpatient Visit on 07/24/2017 Component Date Value Ref Range Status ??? Neutrophils 07/24/2017 69.5 % Final ??? Immature granulocytes 07/24/2017 0.2 % Final ??? Lymphocytes 07/24/2017 21.1 % Final ??? Monos 07/24/2017 5.8 % Final ??? Eosinophils 07/24/2017 0.3 % Final ??? Basophils 07/24/2017 0.6 % Final ??? Neutrophil absolute 07/24/2017 7.32* 1.70 - 6.50 K/cumm Final ??? Immature granulocyte, abs 07/24/2017 0.02 0.00 - 0.10 K/cumm Final ??? Lymphocytes, abs 07/24/2017 2.22 0.80 - 3.30 K/cumm Final ??? Monos, abs 07/24/2017 0.61 0.20 - 0.80 K/cumm Final ??? Eosinophils, abs 07/24/2017 0.30 0.00 - 0.50 K/cumm Final ??? Basophils, abs 07/24/2017 0.06 0.00 - 0.10 K/cumm Final ??? eGFR 07/24/2017 56 mL/min/1.73 m2 Final Comment: Interpretive Data Reference Interval Normal >/= 90 mL/min/1.73m2 Mildly decreased* 60 - 89 mL/min/1.73m2 Mildly to moderately decreased 45 - 59 mL/min/1.73m2 Moderately to severely decreased 30 - 44 mL/min/1.73m2 Severely decreased 15 - 29 mL/min/1.73m2 Kidney Failure < 15 mL/min/1.73m2 *Relative to young adult level If -[place] multiply value by 1.16. Estimated glomerular filtration [...] Current interpretive data was last reviewed 2016. ??? RBC, ur 07/24/2017 9* 0 - 3 /HPF Final ??? WBC, ur 07/24/2017 2 0 - 5 /HPF Final ??? Bacteria, ur 07/24/2017 0 Final ??? Epithelial cells, renal, ur 07/24/2017 0 0 - 0 /HPF Final ? ? Epithelial cells, squamous, ur 07/24/2017 <1 /LPF Final ??? Mucus, ur 07/24/2017 Present Final Lab on 07/24/2017 Component Date Value Ref Range Status ??? Sodium 07/24/2017 143 135 - 145 mmol/L Final ??? Potassium 07/24/2017 4.4 3.5 - 5.1 mmol/L Final ??? CO2 07/24/2017 28 22 - 32 mmol/L Final ??? BUN 07/24/2017 21 8 - 24 mg/dL Final ??? Glucose 07/24/2017 102 70 - 199 mg/dL Final ??? Creatinine 07/24/2017 1.25 0.70 - 1.40 mg/dL Final ??? Calcium 07/24/2017 9.4 8.4 - 10.5 mg/dL Final ??? Chloride 07/24/2017 103 100 - 114 mmol/L Final ??? Albumin 07/24/2017 3.5 3.2 - 4.8 g/dL Final ??? AST 07/24/2017 21 7 - 40 Units/L Final ??? ALT 07/24/2017 14 5 - 50 Units/L Final ??? Alk phos 07/24/2017 63 30 - 110 Units/L Final ??? Bilirubin 07/24/2017 0.40 0.10 - 1.30 mg/dL Final ??? Protein, pl 07/24/2017 6.6 6.0 - 8.3 g/dL Final ??? Anion Gap 07/24/2017 16 8 - 16 mmol/L Final ??? WBC 07/24/2017 10.53* 3.80 - 9.90 K/cumm Final ??? RBC 07/24/2017 4.39 4.30 - 5.80 M/cumm Final ??? Hgb 07/24/2017 14.2 13.0 - 17.5 g/dL Final ??? Hct 07/24/2017 45.5 38.9 - 50.3 % Final ??? MCV 07/24/2017 103.6* 81.3 - 96.4 fL Final ??? MCH 07/24/2017 32.3 27.1 - 33.3 pg Final ??? MCHC 07/24/2017 31.2* 32.3 - 35.7 g/dL Final ??? RDW CV 07/24/2017 13.3 11.1 - 14.9 % Final ??? RDW SD 07/24/2017 51.3* 35.7 - 48.1 fL Final ??? Platelets 07/24/2017 333 150 - 400 K/cumm Final ??? MPV 07/24/2017 10.3 9.1 - 12.3 fL Final ??? NRBC 07/24/2017 0.0 0.0 - 0.2 % Final ??? NRBC Abs 07/24/2017 0.00 0.00 - 0.01 K/cumm Final ??? PSA 07/24/2017 2.61 0.10 - 4.00 ng/mL Final ??? Color, ur 07/24/2017 Yellow Final ??? Clarity, ur 07/24/2017 Clear Final ??? Specific gravity, ur 07/24/2017 1.021 1.001 - 1.033 Final ??? pH, ur 07/24/2017 5.0 5.0 - 8.0 Final ??? Protein, ur 07/24/2017 1+* Negative Final ??? Glucose, ur 07/24/2017 Negative Negative Final ??? Ketones, ur 07/24/2017 Negative Negative Final ??? Bilirubin, ur 07/24/2017 Negative Negative Final ??? Blood, ur 07/24/2017 1+* Negative Final ? ? Urobilinogen, ur 07/24/2017 <2.0 <2.0 Final ??? Nitrites, ur 07/24/2017 Negative Negative Final ??? Leukocyte esterase, ur 07/24/2017 Negative Negative Final ??? Cholesterol 07/24/2017 123 100 - 200 mg/dL Final Comment: Interpretive Data Desirable: <200 mg/dL Borderline high: 200-239 mg/dL High: >240 mg/dL Current interpretive data was last revised on 2016. ??? Triglycerides 07/24/2017 89 10 - 150 mg/dL Final Comment: Interpretive Data Desirable: < 150 mg/dL Borderline High: 150 - 199 mg/dL High: 200 - 499 mg/dL Very High: > or = 499 mg/dL Current interpretive data was last revised on 2016. ??? HDL 07/24/2017 43 40 - 59 mg/dL Final Comment: Interpretive Data Less than 40 mg/dL - Low; A major risk factor for heart disease. Greater than or equal to 60 mg/dL - High; Considered protective of heart disease. Current interpretive data was last revised on 2016. ??? LDL, calculated 07/24/2017 62 60 - 129 mg/dL Final Comment: Interpretive Data Optimal: < 100 mg/dL Near Optimal: 100 - 129 mg/dL Borderline High: 130 - 159 mg/dL High: > 160 mg/dL Current interpretive data was last revised on 2016. ??? Chol/HDL ratio 07/24/2017 3 mg/dL Final ??? CK 07/24/2017 63 30 - 220 Units/L Final ??? Thyroid Stimulating Hormone 07/24/2017 0.96 0.45 - 5.33 mcIUnit/mL Final ??? Free T4 07/24/2017 1.10 0.61 - 1.12 ng/dL Final Comment: Interpretive Data Ingestion of high dose biotin may cause a false elevation with the Free T4 assay. Contact laboratory for further information. Current interpretive data was last revised on 2017. ??? Vitamin D, 25-hydroxy 07/24/2017 22* 30 - 80 ng/mL Final .1 Assessment/Plan Diagnoses and all orders for this visit: 1. Well adult exam (Primary) 2. BMI 30.0-30.9,adult 3. Right flank pain - XR Chest Pa Lateral 2 Views; Future - US Retroperitoneal Complete; Future 4. Healthcare maintenance 5. Medication management 6. Umbilical hernia without obstruction and without gangrene 7. Diastasis of rectus abdominis 8. Former smoker, stopped smoking many years ago 9. Infected sebaceous cyst 10. Benign prostatic hyperplasia with weak urinary stream 11. At low risk for fall 12. Medicare annual wellness visit, subsequent 13. Chronic obstructive pulmonary disease with acute exacerbation ([facility]/HCC) 14. Mixed hyperlipidemia 15. Benign hypertension Other orders - Fluzone high dose, split Trivalent PF 65 yrs & older IM - [id number]-[id number]-xmrnrbxbm (EXFORGE HCT) 5-160-12.5 mg tablet; Take 1 tablet by mouth daily - cephalexin (KEFLEX) 500 mg capsule; Take 1 capsule (500 mg total) by mouth 4 (four) times a day for 7 days. Dyslipidemia controlled Hypertension controlled COPD with acute exacerbation BPH with lower urinary tract symptoms. Former smoker. Diastasis recti a reassured Umbilical hernia discuss observation polypharmacy Infected sebaceous cyst will be treated with Keflex and surgical consultation for possible drainageand excision. Meds and interim labs reviewed. Polypharmacy without evidence of adverse effects. Complex multiple diagnosis and medication regimen coordinated. Medical decision making complex. I discussed with the patient the indication for the diagnostic testing recommended and the patient confirmed understanding and requested that were proceed in this fashion. The patient was given an opportunity to ask all questions have all questions answered. The patient was advised to follow up with other engineering consultant healthcare personnel as recommended. Please refer to the EHR for further management and patient directions. Disposition: We discussed dose, use, and potential side effects medication. Risks and interactions reviewed with patient. Indications for testing reviewed. Patient has been instructed to contact the office with any signs or symptoms that are of concern. The patient is to contact the office with anychange in, worsening, or non improvement in condition. Patient verbalized understanding. The patient was given the opportunity to ask all questions and to have all questions answered. Patient is agreement with the plan of care. 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 and may be subject to dump truck driver errors* [employer] documented in this encounter Plan of Treatment Not on file documented as of this encounter Procedures Procedure Name Priority Date/Time Associated Diagnosis Comments COLONOSCOPY Routine 08/12/2016 documented in this encounter Results * XR Chest Pa Lateral 2 Views (08/12/2017 2:42 PM CDT) Anatomical Region Laterality Modality Body, Chest N/A Radiographic Meseret ging Cassius London MD IMG XR PROCEDURES Edited Result - Final * COLONOSCOPY (08/12/2016) Colonoscopy Unknown Historical Provider MD HEALTH MAINTENANCE Final Result documented in this encounter Visit Diagnoses Diagnosis Well adult exam- Primary Routine general medical examination at a health care facility BMI 30.0-30.9,adult Right flank pain Abdominal pain, unspecified site Healthcare maintenance Medication management Umbilical hernia without obstruction and without gangrene Diastasis of rectus abdominis Former smoker, stopped smoking many years ago Infected sebaceous cyst Sebaceous cyst Benign prostatic hyperplasia with weak urinary stream At low risk for fall Medicare annual wellness visit, subsequent Chronic obstructive pulmonary disease with acute exacerbation (HCC) Mixed hyperlipidemia Benign hypertension Essential hypertension, benign Health examination of defined subpopulation documented in this encounter Discontinued Medications Medication Sig Discontinue Reason Start Date End Da te [id number] cthiazid (EXFORGE HCT) 5-160-12.5 mg tablet TAKE ONE TABLET BY MOUTH ONCE DAILY Reorder 09/18/2011 08/12/2017 calcium carbonate-vitamin D3 (OS-PINEDA 500 + D3) 500mg (1,250mg) -600 unit tablet take 1 tablet twice a day 09/10/2011 08/12/2017 cetirizine (ZyrTEC) 10 mg capsule take 1 by Oral route once 01/01/2016 08/12/2017 fluticasone (FLONASE) 50 mcg/actuation nasal spray inhale 2 spray by Intranasal route every day in each nostril 09/25/2015 08/12/2017 documented as of this encounter Orders Imaging Orders Without Results Count Last Order ed Date First Ordered Date US RETROPERITONEAL COMPLETE 1 08/12/2017 Immunization/Injection Count Last Ordered Date First Ordered Date FLU VACCINE HIGH DOSE SPLIT PRESERV FREE IM 1 08/12/2017 documented in this encounter Care Teams Oil House Attendant Relationship Specialty Start Date End Date Cassius London MD [address] [place] [address] PCP - General 02/06/17 documented as of this encounter
--- OUTSIDE RECORDS SUMMARY | 2024-10-26 01:18 | XMS_ITS | Encounter Summary ---
Author Organization [facility] Address [address] [facility] [address] [place] [address] Phone Care Team Providers Care Emergency Room Doctor Name Role Phone Cassius London MD Primary Care Provider + Reason for Visit * Reason Comments Consult CONSULT Encounter Details Date Type Department Care Team (Late st Contact Info) Description 04/29/2019 11:15 AM CDT Office Visit [facility] Surgery [address] [place] [address] A [address] [place] [address] Francisco Bolton III, MD [address] [facility] [phone] [place] [address] Basal cell carcinoma of lower leg, right (Primary Dx) Social History Tobacco Use Types Packs/Day Years Used Date Smoking Tobacco: Former Cigarettes Q uit: 2012 Smokeless Tobacco: Never Alcohol Use Standard Drinks/Week Comments No 0 (1 standard drink = 0.6 oz pur e alcohol) Sex and Gender Information Value Date Recorded Sex Assigned at Not on file 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 Gender Identity Not on file Sexual Orientation Not on file documented as of this encounter Last Filed Vital Signs Vital Sign Reading Time Taken Comments Blood Pressure 127/76 04/29/2019 7:59 AM CDT Pulse 76 04/29/2019 7:59 AM CDT Temperature - - Respiratory Rate - - Oxygen Saturation - - Inhaled Oxygen Concentration - - Weight 86.2 kg (190 lb) 04/29/2019 7:59 AM CDT Height 172.7 cm (5' 8 ) 04/29/2019 7:59 AM CDT Body Mass Index 28.89 04/29/2019 7:59 AM CDT documented in this encounter Progress Notes * Francisco Bolton III, MD - 04/29/2019 11:15 AM CDT Plastic Surgery Outpatient Consultation Patient: Clarita Juan : 1940 Date of Service: 05/01/2019 PCP: Cassius London MD Requesting Provider: Violet Ordoñez MD Insurance Information: Payor: [employer] / Plan: [employer] / Product Type: *No Product type* / CC: R lower leg BCC HPI: 78 y/o gentleman referred from Dr. Ordoñez after shave biopsy on 01/05/2019 revealed a basal cell carcinoma of the right leg. PMH: Past Medical History: Diagnosis Date ??? Asbestosis (CMS/HCC) asbestosis ??? Cancer (CMS/HCC) biopsy showed small area of prostate cancer ??? HX OTHER MEDICAL dyslipidemia ??? HX OTHER MEDICAL PAD ??? HX OTHER MEDICAL ED ??? HX OTHER MEDICAL 01-pulmonolgist ??? HX OTHER MEDICAL v. veins ??? HX OTHER MEDICAL prostatism ??? HX OTHER MEDICAL diastasis recti ??? HX OTHER MEDICAL 2003 diverticular bleed ??? HX OTHER MEDICAL 2013 Prostate biopsy ??? Hypertension Hypertension ??? Mixed hyperlipidemia ??? 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 Polyp of colon colon polyps PSH: Past Surgical History: Procedure Laterality Date ??? BACK SURGERY back surgery x 3 ??? BREAST LUMPECTOMY Right Benign / done years ago / ??? HERNIA REPAIR Hernia repair ??? OTHER SURGICAL HISTORY s/p HNP L spine Medications: Current Outpatient Medications Medication Sig Dispense Refill ??? albuterol HFA (PROAIR HFA) 90 mcg/actuation inhaler inhale 2 puff by inhalation route every 4 -6 hours as needed 1 Inhaler 1 ??? msMAMJKqsx-ggluzboob-lfdcooqhc (EXFORGE HCT) 5-160-12.5 mg tablet Take 1 [...] by mouth daily. 90 tablet 0 ??? tghpcwdw-ywi-yheyd-vit K-lycop (ONE-A-DAY MEN'S MULTIVITAMIN) 400-20-300 mcg tablet Take one bymouth one time per day 0 0 ??? simvastatin (ZOCOR) 40 mg tablet TAKE ONE TABLET BY MOUTH ONCE DAILY IN THE EVENING 90 5 ??? tamsulosin (FLOMAX) 0.4 mg capsule,extended release 24hr take 1 capsule by oral route every day1/2 hour following the same meal each day 0 0 No current facility-administered medications for this visit. Allergies: Allergies Allergen Reactions ??? Miguel A Inhibitors Cough Reaction: Cough, ? ? Vicodin [Hydrocodone-Acetaminophen] Nausea & Vomiting Social History: Social History Tobacco Use ??? Smoking status: Former Smoker Last attempt to quit: 2012 Years since quittin.4 ??? Smokeless tobacco: Never Used Substance Use Topics ??? Alcohol use: No FamilyHistory: Family History Problem Relation Age of Onset ??? Dementia Mother 87 Dementia; ??? Cancer Mother 87 cancer; ??? Other Father hx not provided; ??? Cancer Brother 60 Cancer -; ??? Bone cancer Brother ??? Brain cancer Brother 62 Cancer -brain; ??? Lung cancer Brother 62 Cancer -lung; ??? Lung cancer Sister Cancer, lung; ??? Brain cancer Sister Review of Systems A comprehensive review of systems was completed by the patient, recorded in the chart (attached), and reviewed by me. Vitals: Record[facility] Physical Exam: General: Well-developed, well-nourished male who appears appropriate to their stated age. Alert andoriented x 3. Pleasant and cooperative. Head: Normocephalic and atraumatic. Eyes: Sclerae anicteric. Extra-ocular movements intact. Mouth: Mucous membranes are moist Neck: The neck is supple, without lymphadenopathy or JVD. Neuro: Speech is fluent. Cranial nerves II-XII are intact. Heart: Rate and rhythm regular. Chest: Breathing unlabored. Abdomen: Soft, non-tender, non-distended. Extremities: Warm, well-perfused. No clubbing, cyanosis, or edema noted. Skin: Charles 2-3. Skin is without masses, rashes, or ecchymoses. Plastic Surgery Exam: Focused examination of the skin of the right lower leg shows an approximately 1.8-2.5 cm cicatricial region consistent with a prior shave biopsy. This is in the pretibial region, where there would beinadequate laxity for primary closure after excision. Lab/Radiology/Diagnostic Review: I personally reviewed the patient's pathology report from 12/28/2018, which shows basal cell carcinoma of the right lower leg Assessment: Right lower leg basal cell carcinoma, incompletely removed by prior shave biopsy Recommendations: I discussed the possible options for treatment with the patient. Given that this is an area that isdifficult for closure, I recommend we try more conservative measures before proceeding with excision. I suggested that we proceed with an attempt at shave excision, given that much of the lesion was probably removed with the 1st shave biopsy, and the residual may be able to be removed with a simpledeep shave. The patient agreed, and was amenable. 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 The location identified above was prepped with chlorhexidine and draped with sterile sheets and towels. After local anesthesia was infiltrated and maximal epinephrine effect achieved, a #15 scalpel blade was used to excise the lesion at the level of the epidermis through the dermis. The wound will be allowed to heal bysecond intention. The patient will return for re-evaluation. The patient was given careful wound care instructions and left the ambulatory office in good condition. Estimated blood loss was less than1 cc. documented in this encounter Plan of Treatment Not on file documented as of this encounter Results * Surgical pathology (04/29/2019 12:00 AM CDT) Tissue 04/29/2019 05/02/2019 6:5 1 AM CDT [facility] - 05/03/2019 12:42 PM CDT [facility] results best viewed via link to PDF [facility] [address] [place] [address] Ave[address] ??[address], [place] [address] ?[email or web address] FINAL REPORT Patient Information: PATIENT NAME: ??CLARITA JUAN ? SEX: ??M ? : ??1940 (Age: 78) ? Specimen Information: COLLECTED: ??04/29/2019 ? RECEIVED: ??05/02/2019 ? REPORTED: ??05/03/2019 ? Submitting Physician Information: Dr. Francisco Bolton III, M.D. [address] [place] [address], [facility] [address], [place] ??[address] , ? DERMATOPATHOLOGY REPORT RESULTS ?? DIAGNOSIS: [...] in-situ hybridization tests were determined by the [facility] in ongoing construction quality control manager and in compliance with regulations drawn from the Clinical Laboratory Improvement Act of 1988 (CLIA '88). These tests may rely on the use of analyte specific reagents that are subject to specific labeling requirements by the [place] FDA, and may only be performed in a facility that is certified by the [facility] as a high-complexity laboratory under CLIA '88. These tests are used for clinical purposes and are not investigational.For lab developed tests and ILBAN, the validation has been reviewed; the performance is considered acceptable for patient testing. LIBAN has not been approved by the US FDA; lipemic/hemolyzed samples can affect the diagnosis. Francisco Bolton III, MD LAB PATHOLOGY ORDERA BLES Final Result [facility] [address] [place] [id number] documented in this encounter Visit Diagnoses Diagnosis Basal cell carcinoma of lower leg, right- Primary Basal cell carcinoma of lower leg, right documented in this encounter Care Teams Emergency Room Doctor Relationship Specialty Start Date End Date Cassius London MD [address] [place] [address] PCP - General 02/06/17 documented as of this encounter
--- OUTSIDE RECORDS SUMMARY | 2024-10-26 01:18 | XMS_ITS | Encounter Summary ---
Author Organization [facility] Address [address] [place] [address] Care Team Providers Care Ferris Wheel Operator Name Role Phone Cassius London MD Primary Care Provider + Encounter Details Date Type Department Care Team (Latest Contact Info) Description 04/15/2018 10:45 AM CDT - 04/15/2018 11:59 PM CDT Hospital Encounter [facility] [address] [place] [address] [place] [id number] [place] [address] Other microscopic hematuria Discharge Disposition: Discharge to home or self care Social History Tobacco Use Types Packs/Day Years Used Date Smoking Tobacco: Former Cigarettes Q uit: 2011 Smokeless Tobacco: Never Alcohol Use Standard Drinks/Week Comments No 0 (1 standard drink = 0.6 oz pur e alcohol) Sex and Gender Information Value Date Recorded Sex Assigned at Not on file 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 90 tablet 07/29/2017 qmjztykp-mit-hwf ic-vit K-lycop (ONE-A-DAY MEN'S MULTIVITAMIN) 400-20-300 mcg [...] Name Priority Date/Time Associated Diagnosis Comments CT UROGRAM W 3D Schedule Routine, Read Routine (OP Routine) 04/15/2018 12:41 PM CDT Other microscopic hematuria documented in this encounter Results * CT Urogram W 3D (04/15/2018 12:41 PM CDT) Anatomical Region Laterality Modality Computed Tomogra phy 04/15/2018 1:30 PM CDT Impressions 04/15/2018 2:07 PM CDT INCREASED SIZE OF 17 MM LEFT RENAL EXOPHYTIC ENHANCING MASS CONSISTENT WITH CARCINOMA. NO RETROPERITONEAL LYMPHADENOPATHY. IVC AND RENAL VEINS ARE PATENT. BILATERAL RENAL CYSTS SOME HYPERDENSE. NO HYDRONEPHROSIS OR NEPHROLITHIASIS. URINARY BLADDER MURAL THICKENING , QUERY NONDISTENTION OR CHRONIC OUTLET OBSTRUCTION. EXTRINSIC COMPRESSION AT BLADDER NECK FROM MODERATE ENLARGED PROSTATE. DISTENDED COMMON DUCT. ??SUGGEST CORRELATION CLINICALLY AND MRCP IF WARRANTED. 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 Electronically signed by: Radha Schultz M.D. Narrative 04/15/2018 2:07 PM CDT RESULT: EXAMINATION: CT UROGRAM W 3D CT UROGRAPHY PROTOCOL. HISTORY: Hematuria. ??History of prostate CVA. TECHNIQUE: Transaxial computed tomographic images of the abdomen and pelvis were obtained before and after the uneventful intravenous administration of 121 mL Optiray [address] urography protocol. 3-D reconstructions were performed by the technologist on a separate workstation and submitted for review as part of this examination. COMPARISON: CT urogram 06/14/2015 FINDINGS: Urographic findings: Right kidney: No hydronephrosis or nephrolithiasis is seen. ??Renal enhancement is noted. ??A right lower pole 8mm hypodensity axial image 69 series 4 is increased size demonstrating average attenuation of 6 Hounsfield units on the nephrographic phase 9 on the delayed images consistent with a cyst. ??A right lower pole anterior cortex 9 mm hypodensity image 74 series 4 is seen only minimal increased with average attenuation of 214 and 11 Hounsfield unit is patent from the pre-contrast to nephrographic and excretory phase probably pseudo-enhancement in a cyst. ??A few minute hypodensities also present which cannot be characterize. ??Contrast excretion is seen with extrarenal pelvis. ??No collecting system filling defect is seen. The ureter is normal in caliber and course. Left kidney: There is no hydronephrosis or nephrolithiasis. ??A posterior cortical lower pole exophytic 13 x 14 x 17 mm mildly heterogeneously enhancing mass has increased from 11 x 12 x 15 mm. This measures 16, 91, and 15 Hounsfield units on the precontrast to nephrographic and excretory phase consistent with enhancing mass. ??A 10 mm ovoid hyperdense lower renal pole lesion 65 series 3 with attenuation of 57 Hounsfield units measure 63 Hounsfield units on the nephrographic phase though not well seen and excretory phase but likely hyperdense cyst. ??A left upper pole exophytic 3.6 cm lesion again seen with attenuation of 30, 31, and 30 Hounsfield units on the precontrast to nephrographic and excretory phase consistent with hyperdense cyst. ??A posterior cortical 12 mm hypodense lesion in image 653 series 4 with average attenuation of 11 Hounsfield units on the precontrast, nephrographic and excretory phase is seen consistent with a cyst. ??Excretion is seen with collecting system filling defect. ??The left ureter is normal in caliber and course without filling defect. The urinary bladder is under distended with mild mural thickening probably from nondistention or chronic outlet obstruction. ??Exophytic appearing extrinsic mass is seen bulging bladder base probably enlarged median lobe of the prostate. ??Incomplete opacification noted but there is no filling defect otherwise seen. Non-urographic findings: Visualized lung bases are clear. The liver, pancreas, adrenals, and gallbladder not remarkable. Calcified splenic granulomas noted. ??Mild common duct distention measuring up to 12 mm is unchanged. ??No radiopaque calculus is noted. However ampullary stenosis or other pathology should be excluded. Ectatic atherosclerotic aorta measuring 3 x 3.3 cm with mild irregular partially calcified plaque increased from 2.9 x 3.1 cm previously.. ??There is mild dilatation of the iliacs. ??Mild celiac ostial calcification is present. ??The SMA is patent with mild calcification and distortion and soft plaque with moderate proximal stenosis. Moderate retained colonic debris is seen with diverticulosis of the descending and sigmoid colon. ??No small bowel obstruction is seen. The stomach is nondistended. ??A small hiatal hernia is noted. ??There is no free fluid. Moderate enlarged 5 cm diameter heterogeneous enhancing prostate is seen. No enlarged retroperitoneal nodes noted. ??The IVC and renal veins are patent. Mild dextroscoliosis is seen. ??There is multilevel moderate to marked disc degeneration and vacuum phenomenon at L2-L3 to L5-S1. ??L4-L5 laminectomy is noted. ??No osseous lytic or osteoblastic lesions noted. Procedure Note Radha Schultz MD - 04/15/2018 RESULT: EXAMINATION: CT UROGRAM W 3D CT UROGRAPHY PROTOCOL. HISTORY: Hematuria. History of prostate CVA. TECHNIQUE: Transaxial computed tomographic images of the abdomen and pelvis were obtained before and after the uneventful intravenous administration of 121 mL Optiray [address] urography protocol. 3-D reconstructions were performed by the technologist on a separate workstation and submitted for review as part of this examination. COMPARISON: CT urogram 06/14/2015 FINDINGS: Urographic findings: Right kidney: No hydronephrosis or nephrolithiasis is seen. Renal enhancement is noted. A right lower pole 8mm hypodensity axial image 69 series 4 is increased size demonstrating average attenuation of 6 Hounsfield units on the nephrographic phase 9 on the delayed images consistent with a cyst. A right lower pole anterior cortex 9 mm hypodensity image 74 series 4 is seen only minimal increased with average attenuation of 214 and 11 Hounsfield unit is patent from the pre-contrast to nephrographic and excretory phase probably pseudo-enhancement in a cyst. A few minute hypodensities also present which cannot be characterize. Contrast excretion is seen with extrarenal pelvis. No collecting system filling defect is seen. The ureter is normal in caliber and course. Left kidney: There is no hydronephrosis or nephrolithiasis. A posterior cortical lower pole exophytic 13 x 14 x 17 mm mildly heterogeneously enhancing mass has increased from 11 x 12 x 15 mm. This measures 16, 91, and 15 Hounsfield units on the precontrast to nephrographic and excretory phase consistent with enhancing mass. A 10 mm ovoid hyperdense lower renal pole lesion 65 series 3 with attenuation of 57 Hounsfield units measure 63 Hounsfield units on the nephrographic phase though not well seen and excretory phase but likely hyperdense cyst. A left upper pole exophytic 3.6 cm lesion again seen with attenuation of 30, 31, and 30 Hounsfield units on the precontrast to nephrographic and excretory phase consistent with hyperdense cyst. A posterior cortical 12 mm hypodense lesion in image 653 series 4 with average attenuation of 11 Hounsfield units on the precontrast, nephrographic and excretory phase is seen consistent with a cyst. Excretion is seen with collecting system filling defect. The left ureter is normal in caliber and course without filling defect. The urinary bladder is under distended with mild mural thickening probably from nondistention or chronic outlet obstruction. Exophytic appearing extrinsic mass is seen bulging bladder base probably enlarged median lobe of the prostate. Incomplete opacification noted but there is no filling defect otherwise seen. Non-urographic findings: Visualized lung bases are clear. The liver, pancreas, adrenals, and gallbladder not remarkable. Calcified splenic granulomas noted. Mild common duct distention measuring up to 12 mm is unchanged. No radiopaque calculus is noted. However ampullary stenosis or other pathology should be excluded. Ectatic atherosclerotic aorta measuring 3 x 3.3 cm with mild irregular partially calcified plaque increased from 2.9 x 3.1 cm previously.. There is mild dilatation of the iliacs. Mild celiac ostial calcification is present. The SMA is patent with mild calcification and distortion and soft plaque with moderate proximal stenosis. Moderate retained colonic debris is seen with diverticulosis of the descending and sigmoid colon. No small bowel obstruction is seen. The stomach is nondistended. A small hiatal hernia is noted. There is no free fluid. Moderate enlarged 5 cm diameter heterogeneous enhancing prostate is seen. No enlarged retroperitoneal nodes noted. The IVC and renal veins are patent. Mild dextroscoliosis is seen. There is multilevel moderate to marked disc degeneration and vacuum phenomenon at L2-L3 to L5-S1. L4-L5 laminectomy is noted. No osseous lytic or osteoblastic lesions noted. IMPRESSION: INCREASED SIZE OF 17 MM LEFT RENAL EXOPHYTIC ENHANCING MASS CONSISTENT WITH CARCINOMA. NO RETROPERITONEAL LYMPHADENOPATHY. IVC AND RENAL VEINS ARE PATENT. BILATERAL RENAL CYSTS SOME HYPERDENSE. NO HYDRONEPHROSIS OR NEPHROLITHIASIS. URINARY BLADDER MURAL THICKENING , QUERY NONDISTENTION OR CHRONIC OUTLET OBSTRUCTION. EXTRINSIC COMPRESSION AT BLADDER NECK FROM MODERATE ENLARGED PROSTATE. DISTENDED COMMON DUCT. SUGGEST CORRELATION CLINICALLY AND MRCP IF WARRANTED. 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 Electronically signed by: Radha Schultz M.D. Yadiel Quezada MD IM CT PROCEDURES Final Resu lt documented in this encounter Visit Diagnoses Diagnosis Other microscopic hematuria documented in this encounter Administered Medications Inactive Administered Medications - up to 3 most recent administrations Medication Order MAR Action Action Date Dose Rate Site ioversol (OPTIRAY 240) injection 125 mL 125 mL, intravenous, Once in imaging, contrast, Starting on Liv 04/15/18 at 1222, For 1 dose Given 04/15/2018 12:24 PM CDT 121 mL Left Antecubital documented in this encounter Care Teams Ferris Wheel Operator Relationship Specialty Start Date End Date Cassius London MD [address] [place] [address] PCP - General 02/06/17 documented as of this encounter
--- OUTSIDE RECORDS SUMMARY | 2024-10-26 01:18 | XMS_ITS | Encounter Summary ---
Author Organization [facility] Healthcare Address [address] [place] [address] Care Team Providers Care Housekeeping Director Name Role Phone Cassius London MD Primary Care Provider + Encounter Details Date Type Department Care Team (Late st Contact Info) Description 08/12/2016 9:22 AM CDT - 08/12/2016 11:30 AM CDT Hospital Encounter [facility] Jay Jay Gutierrez MD [address] [place] [address] [facility] [address] [place] [address] Encounter for screening for malignant neoplasm of colon; History of colonic polyps; Diverticulosis of large intestine without perforation or abscess without bleeding; Third degree hemorrhoids Social History Tobacco Use Types Packs/Day Years Used Date Smoking Tobacco: Former Alcohol Use Standard Drinks/Week Comments No 0 (1 standard drink = 0.6 oz pur e alcohol) Sex and Gender Information Value Date Recorded Sex Assigned at Not on file 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 Gender Identity Not on file Sexual Orientation Not on file documented as of this encounter Medications at Time of Discharge albuterol HFA (PROAIR HFA) 90 mcg/actuation inhaler inhale 2 puff by inhalation route every 4 - 6 hours as needed 1 Inhaler 1 09/25/2015 gzicbeuy-atp-set ic-vit K-lycop (ONE-A-DAY MEN'S MULTIVITAMIN) 400-20-300 mcg [...] 08/06/2016 4 documented as of this encounter Procedure Notes * Provider, MD Shilo - 08/12/2016 12:00 AM CDTAssociated Order(s): COLONOSCOPY PROCEDURE REPORT Patient: CLARITA JUAN Service Date: 08/12/2016 Account: [id number] Room No: : 1940 Patient Type: [facility] Attend.: Jay Jay Flor M.D. Admit Date: 08/12/2016 Dict.: Jay Jay Flor M.D. Disch. Date: 08/12/2016 SURGEON Jay Jay Flor MD HISTORY He is a 75-year-old male with a prior history of colonic polyps presents for screening for malignant neoplasm. PHYSICAL EXAM Well-developed male. Lungs are clear. Cardiovascular exam is unremarkable. PROCEDURE Colonoscopy was performed with the Olympus video endoscope. Patient was premedicated by Anesthesia. On digital exam, there is grade 3 hemorrhoids. We inserted the endoscope and advanced it to the cecum. Colonic prep was adequate. We carefully searched the mucosa. Could find no evidence of inflammation or neoplasia. There is significant sigmoid diverticulosis involved in the colon, although no other abnormalities are noted. He tolerated the procedure without difficulty. POSTOPERATIVE DIAGNOSIS Sigmoid diverticulosis, hemorrhoidal disease. PLAN Surveillance 5 years if clinically indicated. Electronically Authenticated by: Jay Jay Flor MD On 08/12/2016 02:04 PM CDT Jay Jay Flor M.D. DR/don TD: 08/12/2016 11:18 CC: Cassius London M.D. documented in this encounter Plan of Treatment Not on file documented as of this encounter Procedures Procedure Name Priority Date/Time Associated Diagnosis Comments COLONOSCOPY IMAGES 08/12/2016 COLONOSCOPY 08/12/2016 12:00 AM CDT documented in this encounter Results * COLONOSCOPY (08/12/2016 12:00 AM CDT) Anatomical Region Laterality Modality Other Narrative 08/12/2016 12:00 AM CDT Ordered by an unspecified provider. Procedure Note Provider, MD Shilo - 08/12/2016 12:00 AM CDT PROCEDURE REPORT Patient: CLARITA JUAN Service Date: 08/12/2016 Account: [id number] Room No: : 1940 Patient Type: SDS Attend.: Jay Jay Flor M.D. Admit Date: 08/12/2016 Dict.: Jay Jay Flor M.D. Disch. Date: 08/12/2016 SURGEON Jay Jay Flor MD HISTORY He is a 75-year-old male with a prior history of colonic polyps presentsfor screening for malignant neoplasm. PHYSICAL EXAM Well-developed male. Lungs are clear. Cardiovascular exam isunremarkable. PROCEDURE Colonoscopy was performed with the Olympus video endoscope. Patient was premedicated by Anesthesia. On digital exam, there is grade 3hemorrhoids. We inserted the endoscope and advanced it to the cecum. Colonic prepwas adequate. We carefully searched the mucosa. Could find no evidence of inflammation or neoplasia. There is significant sigmoid diverticulosis involved in the colon, although no other abnormalities are noted. He tolerated the procedure without difficulty. POSTOPERATIVE DIAGNOSIS Sigmoid diverticulosis, hemorrhoidal disease. PLAN Surveillance 5 years if clinically indicated. Electronically Authenticated by: Jay Jay Flor MD On 08/12/2016 02:04 PM CDT Jay Jay Flor M.D. /don TD: 08/12/2016 11:18 CC: Cassius London M.D. us Historical Provider ENDOSCOPY PROCEDURES Marah l Result * COLONOSCOPY IMAGES (08/12/2016) Anatomical Region Laterality Modality Other Narrative 08/12/2016 Ordered by an unspecified provider. us Historical Provider GI PROCEDURE ORDERABLES F inal Result documented in this encounter Visit Diagnoses Diagnosis Encounter for screening for malignant neoplasm of colon History of colonic polyps Personal history of colonic polyps Diverticulosis of large intestine without perforation or abscess without bleeding Third degree hemorrhoids documented in this encounter Care Teams Housekeeping Director Relationship Specialty Start Date End Date Cassius London MD [address] [place] [id number] PCP - General 01/24/13 01/20/17 documented as of this encounter
--- OUTSIDE RECORDS SUMMARY | 2024-10-26 01:18 | XMS_ITS | Encounter Summary ---
Author Organization [facility] Healthcare Address [address] [place] [address] Care Team Providers Care Flight Simulator Teacher Name Role Phone Cassius London MD Primary Care Provider + Encounter Details Date Type Department Care Team (Late st Contact Info) Description 08/06/2016 12:13 PM CDT - 08/06/2016 11:59 PM CDT Hospital Encounter [facility] Cassius Duarte MD [address] [place] [address] Other specified diseases of blood and blood-forming organs Social History Tobacco Use Types Packs/Day Years Used Date Smoking Tobacco: Former Alcohol Use Standard Drinks/Week Comments No 0 (1 standard drink = 0.6 oz pur e alcohol) Sex and Gender Information Value Date Recorded Sex Assigned at Not on file 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 Gender Identity Not on file Sexual Orientation Not on file documented as of this encounter Medications at Time of Discharge albuterol HFA (PROAIR HFA) 90 mcg/actuation inhaler inhale 2 puff by inhalation route every 4 - 6 hours as needed 1 Inhaler 1 09/25/2015 [id number]-mub-qsj ic-vit K-lycop (ONE-A-DAY MEN'S MULTIVITAMIN) 400-20-300 mcg [...] as of this encounter Visit Diagnoses Diagnosis Other specified diseases of blood and blood-forming organs documented in this encounter Care Teams Flight Simulator Teacher Relationship Specialty Start Date End Date Cassius London MD [address] [place] [address] PCP - General 01/24/13 01/20/17 documented as of this encounter
--- OUTSIDE RECORDS SUMMARY | 2024-10-26 01:18 | XMS_ITS | Encounter Summary ---
Author Organization [facility] Address [address] [place] [address] Care Team Providers Care Press Tender Incendiary Grenade Name Role Phone Cassius London MD Primary Care Provider + Reason for Referral * Diagnostic Imaging (Routine) - Closed Specialty Diagnoses / Procedures Referred By Contac t Referred To Contact Radiology Diagnoses Other specified disorders of kidney and ureter Procedures CT Abdomen W WO Contrast Yadiel Quezada MD Phone: tel: fax: [address] [phone] Referral ID Status Reason Start Date Expiration Date Visits Re quested Visits Authorized [id number] Closed 02/14/2019 08/25/2020 1 1 Reason for Visit * Diagnostic Imaging (Routine) - Closed Specialty Diagnoses / Procedures Referred By Contac t Referred To Contact Radiology Diagnoses Other specified disorders of kidney and ureter Procedures CT Abdomen W WO Contrast Yadiel Quezada MD Phone: tel: fax: [address] [phone] Referral ID Status Reason Start Date Expiration Date Visits Re quested Visits Authorized [id number] Closed 02/14/2019 08/25/2020 1 1 Encounter Details Date Type Department Care Team (Latest Contact Info) Description 03/03/2019 9:36 AM CDT - 03/03/2019 11:59 PM CDT Hospital Encounter [facility] Imaging and Radiology [address] [place] [address] [place] [address] 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 90 tablet 07/29/2017 mophcxff-mve-uvc ic-vit K-lycop (ONE-A-DAY MEN'S MULTIVITAMIN) 400-20-300 mcg [...] Schedule Routine, Read Routine (OP Routine) 03/03/2019 10:27 AM CDT Other specified disorders of kidney and ureter POCT CREATININE FOR CONTRAST EVALUATION Routine 03/03/2019 10:03 AM CDT documented in this encounter Results * CT Abdomen W WO Contrast (03/03/2019 10:27 AM CDT) Anatomical Region Laterality Modality Body N/A Computed Tomogra phy 03/03/2019 11:0 0 AM CDT Impressions 03/03/2019 11:21 AM CDT 1. ??Bilateral renal cysts. ??Some of the cysts in the left kidney are hyperdense. 2. ??Enhancing exophytic mass in the lower pole of the left kidney which has increased in size from 1.6 cm to 1.7 cm. 3. ??No evidence retroperitoneal adenopathy. 4. ??Aortic atherosclerosis. Electronically signed by: Ab Riddle M.D. Narrative 03/03/2019 11:21 AM CDT RESULT: HISTORY: Left renal mass. EXAMINATION: CT ABDOMEN W WO CONTRAST DATE: 03/03/2019 3:00 PM COMPARISON: 04/15/2018 TECHNIQUE: CT of the abdomen was performed prior to and following the intravenous administration of 98 mL Optiray 350. ??Postcontrast images were obtained in arterial and nephrographic phases. ??Coronal reconstructions were obtained. FINDINGS: Scans through the lung bases are unremarkable. ??The heart size is normal. ??No evidence of a pleural effusion. ??The liver, gallbladder, pancreas and spleen appear normal. ??No evidence of free air or free fluid in the abdomen. ?? There are several small cysts in the lower pole of the right kidney which are unchanged from previous. ??There are 2 hyperdense cysts in the mid left kidney which measure 3.6 cm and 1.6 cm. ??There is an enhancing exophytic mass in the lower pole the left kidney which measures 1.7 cm. ??On the previous study, this lesion measured 1.6 cm. There is also a small cyst in the lower pole the left kidney. ??No evidence of hydronephrosis. No evidence of retroperitoneal adenopathy. ??There are atherosclerotic changes in the abdominal aorta. ??No evidence of bowel obstruction. Procedure Note Ab Riddle MD - 03/03/2019 RESULT: HISTORY: Left renal mass. EXAMINATION: CT ABDOMEN W WO CONTRAST DATE: 03/03/2019 3:00 PM COMPARISON: 04/15/2018 TECHNIQUE: CT of the abdomen was performed prior to and following the intravenous administration of 98 mL Optiray 350. Postcontrast images were obtained in arterial and nephrographic phases. Coronal reconstructions were obtained. FINDINGS: Scans through the lung bases are unremarkable. The heart size is normal. No evidence of a pleural effusion. The liver, gallbladder, pancreas and spleen appear normal. No evidence of free air or free fluid in the abdomen. There are several small cysts in the lower pole of the right kidney which are unchanged from previous. There are 2 hyperdense cysts in the mid left kidney which measure 3.6 cm and 1.6 cm. There is an enhancing exophytic mass in the lower pole the left kidney which measures 1.7 cm. On the previous study, this lesion measured 1.6 cm. There is also a small cyst in the lower pole the left kidney. No evidence of hydronephrosis. No evidence of retroperitoneal adenopathy. There are atherosclerotic changes in the abdominal aorta. No evidence of bowel obstruction. IMPRESSION: 1. Bilateral renal cysts. Some of the cysts in the left kidney are hyperdense. 2. Enhancing exophytic mass in the lower pole of the left kidney which has increased in size from 1.6 cm to 1.7 cm. 3. No evidence retroperitoneal adenopathy. 4. Aortic atherosclerosis. Electronically signed by: Ab Riddle M.D. us Yadiel Quezada MD IMG CT PROCEDURES Final Resu lt * POCT creatinine for contrast evaluation (03/03/2019 10:03 AM CDT) Creatinine, POC 1.3 0.6 - 1.3 mg/dL Blood specimen (specimen) 03/03/2019 10:03 AM CDT Yadiel Quezada MD POINT OF CARE TEST ORDERABLE S Final Result documented in this encounter Visit Diagnoses Diagnosis Other specified disorders of kidney and ureter documented in this encounter Administered Medications Inactive Administered Medications - up to 3 most recent administrations Medication Order MAR Action Action Date Dose Rate Site ioversol (OPTIRAY 350) syringe syringe 100 mL 100 mL, intravenous, Once in imaging, contrast, Starting on Liv 03/03/19 at 0945, For 1 dose Given 03/03/2019 10:27 AM CDT 98 mL documented in this encounter Care Teams Press Tender Incendiary Grenade Relationship Specialty Start Date End Date Cassius London MD [address] [place] [address] PCP - General 02/06/17 documented as of this encounter
--- OUTSIDE RECORDS SUMMARY | 2024-10-26 01:18 | XMS_ITS | Encounter Summary ---
Author Organization [facility] Healthcare Address [address] [place] [address] Care Team Providers Care Package Dyer Name Role Phone Cassius London MD Primary Care Provider + Encounter Details Date Type Department Care Team (Late st Contact Info) Description 04/15/2018 12:15 PM CDT Lab [address] [address] Social History Tobacco Use Types Packs/Day Years Used Date Smoking Tobacco: Former Cigarettes Q uit: 2012 Smokeless Tobacco: Never Alcohol Use Standard Drinks/Week Comments No 0 (1 standard drink = 0.6 oz pur e alcohol) Sex and Gender Information Value Date Recorded Sex Assigned at Not on file 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 [address] PCP - General 02/06/17 documented as of this encounter
--- OUTSIDE RECORDS SUMMARY | 2024-10-26 01:18 | XMS_ITS | Encounter Summary ---
Author Organization [facility] Address [address] [place] [address] Care Team Providers Care Junior Legal Secretary Name Role Phone Cassius London MD Primary Care Provider + Encounter Details Date Type Department Care Team (Late st Contact Info) Description 07/30/2017 Telephone [facility] [address] [facility] [address] [place] [address] Cassius London MD [address] [facility] [place] [address] Social History Tobacco Use Types Packs/Day Years Used Date Smoking Tobacco: Former Alcohol Use Standard Drinks/Week Comments No 0 (1 standard drink = 0.6 oz pur e alcohol) Sex and Gender Information Value Date Recorded Sex Assigned at Not on file 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 Notes Recorded by Leticia Null on 07/29/2017 at 3:12 PM CDT Lab ??12-02-17 10:15 pt aware. ??Sent to lab ------ Notes Recorded by Cassius oLndon MD on 07/25/2017 at 10:49 AM CDT Vit d protocol Ref Range & Units 6d ago Vitamin D, 25-hydroxy 30 - 80 ng/mL 22 Resulting Agency [facility] documented in this encounter Plan of Treatment Not on file documented as of this encounter Visit Diagnoses Not on filedocumented in this encounter Care Teams Junior Legal Secretary Relationship Specialty Start Date End Date Cassius London MD [address] [place] [address] PCP - General 02/06/17 documented as of this encounter
--- OUTSIDE RECORDS SUMMARY | 2024-10-26 01:18 | XMS_ITS | Encounter Summary ---
Author Organization [facility] Address [address] [place] [address] Care Team Providers Care Bee Farmer Name Role Phone Cassius London MD Primary Care Provider + Reason for Visit * Reason Comments R eye sensitivity Encounter Details Date Type Department Care Team (Late st Contact Info) Description 04/29/2017 11:00 AM CDT Office Visit [facility] [address] [facility] [address] [place] [id number] Rain Isaac NP [address] [facility] [address] [place] [address] Acute pain in right eye (Primary Dx) Social History Tobacco Use Types Packs/Day Years Used Date Smoking Tobacco: Former Alcohol Use Standard Drinks/Week Comments No 0 (1 standard drink = 0.6 oz pur e alcohol) Sex and Gender Information Value Date Recorded Sex Assigned at Not on file 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 Gender Identity Not on file Sexual Orientation Not on file documented as of this encounter Last Filed Vital Signs Vital Sign Reading Time Taken Comments Blood Pressure 106/72 04/29/2017 11:10 AM CDT Pulse 76 04/29/2017 11:10 AM CDT Temperature 36.9 ??C (98.4 ??F) 04/29/2017 11:10 AM C DT Respiratory Rate 16 04/29/2017 11:10 AM CDT Oxygen Saturation - - Inhaled Oxygen Concentration - - Weight 86.8 kg (191 lb 6.4 oz) 04/29/2017 11:10 AM CDT Height 168.3 cm (5' 6.26 ) 04/29/2017 11:10 AM C DT Body Mass Index 30.65 04/29/2017 11:10 AM CDT documented in this encounter Patient Instructions * Patient Instructions* Rain Isaac NP - 04/29/2017 11:00 AM CDT CALL YOUR OPTHOMOLOGIST, DR. APARICIO, IF YOUR SYMPTOMS DO NOT IMPROVE WITHIN 1-2 DAYS! documented in this encounter Ordered Prescriptions Prescription Sig Dispense Quantity Refills Last Filled Start Date End Date trimethoprim-polym yxin B (POLYTRIM) ophthalmic solution Administer 2 drops into the right eye 4 (four) times a day. 10 mL 04/29/2017 7 documented in this encounter Progress Notes * Rain Isaac NP - 04/29/2017 11:00 AM CDT Subjective/Objective Patient ID: Xavier Clarke is a 76 y.o. male. Chief Complaint R eye sensitivity R eye. Onset yesterday am. Itchy and irritated. Burning and watering. [place] better with sunglasses on. Light sensitive. Right eye discomfort persists described as scratchy irritated and painful. Denies any recent trauma or injury. No recent yard work ordered cutting etc. He states this started afterhe rubbed his eye. The left eye is unaffected. He did not have any matting or crusting noted to theeye upon arising this morning. Review of Systems Constitutional: Negative. HENT: Negative. Eyes: Positive for photophobia, pain, discharge, redness and itching. Negative for visual disturbance. Respiratory: Negative. Cardiovascular: Negative. Neurological: Negative. Physical Exam Constitutional: He is oriented to person, place, and time. He appears well- developed and well-nourished. No distress. HENT: Head: Normocephalic and atraumatic. Mouth/Throat: Oropharynx is clear and moist. Eyes: EOM and lids are normal. Pupils are equal, round, and reactive to light. Right eye exhibits no exudate and no hordeolum. No foreign body present in the right eye. Right conjunctiva is injected.Right conjunctiva has no hemorrhage. Right eye exhibits normal extraocular motion. Alcaine drop x2 to the right eye provided along with floursein stain. Black light exam completed which revealed very small corneal abrasion at approximately 5 o'clock. no additional acute abnormalityidentified. Patient noted symptom improvement with Alcaine drops alone. Neck: Neck supple. Cardiovascular: Normal rate and regular rhythm. Pulmonary/Chest: Effort normal and breath sounds normal. Abdominal: Soft. Bowel sounds are normal. Neurological: He is alert and oriented to person, place, and time. Skin: Skin is warm and dry. Psychiatric: He has a normal mood and affect. His behavior is normal. Assessment/Plan Diagnoses and all orders for this visit: 1. Acute pain in right eye (Primary) Assessment & Plan: Small corneal abrasion noted to right eye. Recommend Polytrim ophthalmology drops. Recommend close follow-up with master plumber if he does not the rapid improvement within 1-2 days. He has an master plumber, Dr. Aparicio. He verbalized understanding and was in agreement with the plan of care. He offered no further complaints. Other orders - trimethoprim-polymyxin B (POLYTRIM) ophthalmic solution; Administer 2 drops into the right eye 4 (four) times a day. Cosigned by Cassius London MD at 04/29/2017 12:51 PM CDT documented in this encounter Miscellaneous Notes * Assessment & Plan Note - Rain Isaac NP - 04/29/2017 11:44 AM CDT Associated Problem(s): Acute pain in right eye (Resolved 08/12/2017) Small corneal abrasion noted to right eye. Recommend Polytrim ophthalmology drops. Recommend close follow-up with master plumber if he does not the rapid improvement within 1-2 days. He has an master plumber, Dr. Aparicio. He verbalized understanding and was in agreement with the plan of care. He offered no further complaints. documented in this encounter Plan of Treatment Not on file documented as of this encounter Visit Diagnoses Diagnosis Acute pain in right eye- Primary documented in this encounter Discontinued Medications Medication Sig Discontinue Reason Start Date End Da te methylPREDNISolone (MEDROL, CHANEL,) 4 mg tablet take by Oral route as directed 03/24/2017 04/29/2017 documented as of this encounter Care Teams Bee Farmer Relationship Specialty Start Date End Date Cassius London MD [address] [place] [address] PCP - General 02/06/17 documented as of this encounter
--- OUTSIDE RECORDS SUMMARY | 2024-10-26 01:18 | XMS_ITS | Encounter Summary ---
Author Organization [facility] Address [address] [place] [address] Care Team Providers Care Silver Miner Name Role Phone Cassius London MD Primary Care Provider + Encounter Details Date Type Department Care Team (Late st Contact Info) Description 09/23/2017 Orders Only [facility] Health Information Management [address] [place] [id number] Scanning, Provider Social History Tobacco Use Types Packs/Day Years Used Date Smoking Tobacco: Former Cigarettes Q uit: 2012 Smokeless Tobacco: Never Alcohol Use Standard Drinks/Week Comments No 0 (1 standard drink = 0.6 oz pur e alcohol) Sex and Gender Information Value Date Recorded Sex Assigned at Not on file 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 Gender Identity Not on file Sexual Orientation Not on file documented as of this encounter Plan of Treatment Not on file documented as of this encounter Procedures Procedure Name Priority Date/Time Associated Diagnosis Comments CREATININE, WHOLE BLOOD STAT 09/24/2017 7:15 AM TIRE SPOTTER SCAN - LABS 09/23/2017 11:30 AM TIRE SPOTTER documented in this encounter Results * Creatinine, whole blood (09/24/2017 7:15 AM TIRE SPOTTER) Creatinine, bld 1.20 0.60 - 1.30 mg/dL [facility] ([place]) Blood specimen (specimen) 09/24/2017 7:15 AM TIRE SPOTTER 09/24/2017 7:32 AM TIRE SPOTTER us Yadiel Quezada MD LAB BLOOD ORDERABLES Final R esult [facility] ([place]) [address] [facility] [place] [address] * SCAN - LABS (09/23/2017 11:30 AM TIRE SPOTTER) us Provider Scanning Final Result documented in this encounter Visit Diagnoses Not on filedocumented in this encounter Care Teams Silver Miner Relationship Specialty Start Date End Date Cassius London MD [address] [place] [address] PCP - General 02/06/17 documented as of this encounter
--- OUTSIDE RECORDS SUMMARY | 2024-10-26 01:18 | XMS_ITS | Encounter Summary ---
Author Organization [facility] Healthcare Address [address] [place] [address] Care Team Providers Care Multimedia Technician Name Role Phone Cassius London MD Primary Care Provider + Encounter Details Date Type Department Care Team (Late st Contact Info) Description 06/05/2016 7:36 AM CDT - 06/05/2016 11:59 PM T Hospital Encounter [facility] Cassius Duarte MD [address] [place] [address] Encounter for general adult medical examination without abnormal findings; Encounter for screening for malignant neoplasm of prostate; Vitamin D deficiency Social History Tobacco Use Types Packs/Day Years Used Date Smoking Tobacco: Former Alcohol Use Standard Drinks/Week Comments No 0 (1 standard drink = 0.6 oz pur e alcohol) Sex and Gender Information Value Date Recorded Sex Assigned at Not on file 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 Gender Identity Not on file Sexual Orientation Not on file documented as of this encounter Medications at Time of Discharge albuterol HFA (PROAIR HFA) 90 mcg/actuation inhaler inhale 2 puff by inhalation route every 4 - 6 hours as needed 1 Inhaler 1 09/25/2015 kbosxdbh-hay-ria ic-vit K-lycop (ONE-A-DAY MEN'S MULTIVITAMIN) 400-20-300 mcg [...] IN THE EVENING 90 5 08/28/2008 2 documented as of this encounter Plan of Treatment Not on file documented as of this encounter Visit Diagnoses Diagnosis Encounter for general adult medical examination without abnormal findings Encounter for screening for malignant neoplasm of prostate Vitamin D deficiency documented in this encounter Care Teams Multimedia Technician Relationship Specialty Start Date End Date Cassius London MD [address] [place] [address] PCP - General 01/24/13 01/20/17 documented as of this encounter
--- OUTSIDE RECORDS SUMMARY | 2024-10-26 01:18 | XMS_ITS | Encounter Summary ---
Author Organization [facility] Healthcare Address [address] [place] [address] Care Team Providers Care Sas Sql Developer Name Role Phone Cassius London MD Primary Care Provider + Encounter Details Date Type Department Care Team (Late st Contact Info) Description 02/08/2016 12:20 PM CDT - 02/08/2016 11:59 PM CDT Hospital Encounter [place] [id number] [address] [place] [address] [address] Chronic obstructive pulmonary disease (CMS/HCC); Other disorders of lung Social History Tobacco Use Types Packs/Day Years Used Date Smoking Tobacco: Former Alcohol Use Standard Drinks/Week Comments No 0 (1 standard drink = 0.6 oz pur e alcohol) Sex and Gender Information Value Date Recorded Sex Assigned at Not on file 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 Gender Identity Not on file Sexual Orientation Not on file documented as of this encounter Medications at Time of Discharge albuterol HFA (PROAIR HFA) 90 mcg/actuation inhaler inhale 2 puff by inhalation route every 4 - 6 hours as needed 1 Inhaler 1 09/25/2015 mlrcrhbx-vpu-ifd ic-vit K-lycop (ONE-A-DAY MEN'S MULTIVITAMIN) 400-20-300 mcg [...] Procedure Name Priority Date/Time Associated Diagnosis Comments CHEST RADIOGRAPHY, FRONTAL (AP), LATERAL Routine 02/08/2016 12:34 PM CDT PULMONARY FUNCTION TEST (PFT) 02/08/2016 PULMONARY FUNCTION TEST (PFT) Routine 02/08/2016 12:00 AM CDT documented in this encounter Results * CHEST RADIOGRAPHY, FRONTAL (AP), LATERAL (02/08/2016 12:34 PM CDT) Anatomical Region Laterality Modality N/A Radiographic Meseret ging 02/08/2016 12:3 4 PM CDT Narrative 02/08/2016 5:35 PM CDT DATE OF EXAM: ??Apr ??2015 12:34PM Acc#: ??[id number] ??EDX [id number] - XR Chest 2 Views ?? DIAGNOSIS: ??CXR ? PFT CLINICAL HISTORY: ?? COPD RESULT: CHEST, TWO VIEWS, 02/08/2016: INDICATION: Shortness of breath. History of chronic obstructive pulmonary disease. PA and lateral radiographs of the chest were obtained. The heart and mediastinum are within normal limits. The lungs are hyperexpanded, consistent with chronic obstructive pulmonary disease. There is mild apical pleural scarring. The lungs are clear. IMPRESSION: ? 1. HYPEREXPANDED LUNGS, CONSISTENT WITH CHRONIC OBSTRUCTIVE PULMONARY DISEASE. 2. MILD BIAPICAL PLEURAL SCARRING. 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 ??READ ON: ??Apr ??2015 12:38P ORDERING DR: GUY CORDOBA ([facility]) Pascual ? THIS DOCUMENT HAS BEEN ELECTRONICALLY SIGNED BY: ??BHARATH Garner, FERMÍN ??ON: ??Apr ??1 2015 ??5:35P Attending: ??BERYL ([facility]), ??GUY Requesting: ??BERYL ([facility]), ??GUY Requesting Fax: ??[phone] Attending Fax: ??[phone] Attending ID: ??[id number] Requesting ID: ??[id number] Report To 1 ID: ?? Report To 1 Name: ??, ?? Report To 1 FAX: ??-- Report To 2 ID: ?? Report To 2 Name: ??, ?? Report To 2 FAX: ??-- NextGen Order #: ?? Procedure Note Provider, MD Shilo - 03/03/2017 DATE OF EXAM: Feb 08 2016 12:34PM Acc#: [id number] EDX [id number] - XR Chest 2 Views DIAGNOSIS: CXR PFT CLINICAL HISTORY: COPD RESULT: CHEST, TWO VIEWS, 02/08/2016: INDICATION: Shortness of breath. History of chronic obstructive pulmonary disease. PA and lateral radiographs of the chest were obtained. The heart and mediastinum are within normal limits. The lungs are hyperexpanded, consistent with chronic obstructive pulmonary disease. There is mild apical pleural scarring. The lungs are clear. IMPRESSION: 1. HYPEREXPANDED LUNGS, CONSISTENT WITH CHRONIC OBSTRUCTIVE PULMONARY DISEASE. 2. MILD BIAPICAL PLEURAL SCARRING. OPTICAL GOODS DRILLING MACHINE OPERATOR: ALEXANDER TRANSCRIBE DATE/TIME: Feb 08 2016 2:41P RADIOLOGIST: FERMÍN SINHA M.D. READ ON: Feb 08 2016 12:38P ORDERING DR: GUY CORDOBA ([facility]) Pascual THIS DOCUMENT HAS BEEN ELECTRONICALLY SIGNED BY: FERMÍN SINHA M.D. ON: Feb 08 2016 5:35P Attending: BERYL ([facility])GUY Requesting: BERYL ([facility])GUY Requesting Attending Attending ID: [id number] Requesting ID: [id number] Report To 1 ID: Report To 1 Name: , Report To 1 FAX: -- Report To 2 ID: Report To 2 Name: , Report To 2 FAX: -- NextGen Order #: Historical Provider IMG XR PROCEDURES Final R esult * PULMONARY FUNCTION TEST (02/08/2016) Anatomical Region Laterality Modality PFT Narrative 02/08/2016 Ordered by an unspecified provider. Historical Provider PFT ORDERABLES Final Res ult * Pulmonary function test (02/08/2016 12:00 AM CDT) Anatomical Region Laterality Modality PFT 02/08/2016 Narrative 02/08/2016 5:03 PM CDT ? PULMONARY FUNCTION REPORT - NE Patient: ??CLARITA JUAN Account: ??[id number] ?Room No: : ?1940 ?Patient Type: ??ANC Attend.: ??Manuel Lipscomb M.D. ?Admit Date: ?02/08/2016 Dict.: ?Brandon Nicholson M.D. ?Disch. Date: DATE OF TESTING: ??02/08/2016. The patient is 5'7 , 192 pounds, 55 years of age. ??The patient has spirometry that demonstrates moderately severe airflow limitation that improves dramatically after inhaled bronchodilator. ??The patient's FEV1 improves from 1.44 liters, 56% of predicted to 1.66 liters, 65% of predicted. ??The patient's forced vital capacity improves from 2.34, 61% of predicted to 3.05 liters, 30% improvement. ??The patient in addition has static lung volumes that demonstrate gas trapping with residual of 135% of predicted with thoracic gas volume of 122% of predicted. ??Slow vital capacity is 70% predicted and total lung capacity is 94%. ??The patient's gas transfer is decreased. ??The patient's airway resistance is borderline increased. IMPRESSION: ??Moderately severe airflow obstruction with improvement following inhaled bronchodilator. ??Gas trapping is present. ??02 sat at 97% at rest is noted. Electronically Authenticated by: Brandon Nicholson MD On 02/08/2016 04:50 PM CDT Dictated by: ??Brandon Nicholson M.D. GEAR CHANGER/sherlyn Job #: ??[id number] DD: ??02/08/2016 14:23 TD: ??02/08/2016 14:58 us Historical Provider PFT ORDERABLES Final Res ult documented in this encounter Visit Diagnoses Diagnosis Chronic obstructive pulmonary disease (HCC) Other disorders of lung documented in this encounter Care Teams Sas Sql Developer Relationship Specialty Start Date End Date Cassius London MD [address] [place] [address] PCP - General 01/24/13 01/20/17 documented as of this encounter
--- OUTSIDE RECORDS SUMMARY | 2024-10-26 01:18 | XMS_ITS | Encounter Summary ---
Author Organization [facility] Healthcare Address [address] [place] [address] Care Team Providers Care Railroad Police Name Role Phone Cassius London MD Primary Care Provider + Encounter Details Date Type Department Care Team (Late st Contact Info) Description 07/24/2017 7:27 AM CDT - 07/24/2017 11:59 PM T Hospital Encounter [facility] OP INTERIM Cassius London MD [address] [address] Discharge Disposition: Discharge to home or self care Social History Tobacco Use Types Packs/Day Years Used Date Smoking Tobacco: Former Alcohol Use Standard Drinks/Week Comments No 0 (1 standard drink = 0.6 oz pur e alcohol) Sex and Gender Information Value Date Recorded Sex Assigned at Not on file 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 Gender Identity Not on file Sexual Orientation Not on file documented as of this encounter Medications at Time of Discharge albuterol HFA (PROAIR HFA) 90 mcg/actuation inhaler inhale 2 puff by inhalation route every 4 - 6 hours as needed 1 Inhaler 1 09/25/2015 sypuncoo-fra-zbs ic-vit K-lycop (ONE-A-DAY MEN'S MULTIVITAMIN) 400-20-300 mcg [...] Priority Date/Time Associated Diagnosis Comments EGFR Routine 07/24/2017 7:27 AM CDT DIFFERENTIAL AUTO Routine 07/24/2017 7:2 7 AM CDT URINALYSIS, MICROSCOPIC ONLY Routine 07/24/2017 7:27 AM CDT DISCHARGE LABORATORY CUMULATIVE REPORT 07/24/2017 12:00 AM CDT documented in this encounter Results * (ABNORMAL) Urinalysis, microscopic only (07/24/2017 7:27 AM CDT) RBC, ur 9(H) 0 - 3 /HPF [facility] WBC, ur 2 0 - 5 /HPF [facility] Bacteria, ur 0 [facility] Epithelial cells, renal, ur 0 0 - 0 /HPF [facility] Epithelial cells, squamous, ur <1 /LPF [facility] Mucus, ur Present [facility] Urine 07/24/2017 7:27 AM CDT 07/24/2017 5:25 PM CDT us Cassius London MD LAB URINE ORDERABLES Fin al Result Performing Organization Address [facility] Phone Number NNEKA [address] Department [place] [address] * eGFR (07/24/2017 7:27 AM CDT) eGFR 56 mL/min/1.7 3 m2 [facility] Comment: Interpretive Data Reference Interval Normal ?>/= 90 mL/min/1.73m2 Mildly decreased* ? 60 - 89 mL/min/1.73m2 Mildly to moderately decreased ?45 - 59 mL/min/1.73m2 Moderately to severely decreased ??30 - 44 mL/min/1.73m2 Severely decreased ?15 - 29 mL/min/1.73m2 Kidney Failure ?< 15 ??mL/min/1.73m2 *Relative to young adult level If -Sudanese multiply value by 1.16. Estimated glomerular filtration [...] was last reviewed 2016. Blood specimen (specimen) 07/24/2017 7:27 AM CDT 07/24/2017 5:34 PM CDT Cassius London MD LAB BLOOD ORDERABLES Fin al Result Performing Organization Address [facility] Co de Phone Number NNEKA CARDENAS [phone] Department [place] [address] * (ABNORMAL) Differential, auto (07/24/2017 7:27 AM CDT) Neutrophil pct 69.5 % [facility] Imm gran pct 0.2 % [facility] Lymphocyte pct 21.1 % [facility] Monocyte pct 5.8 % [facility] Eosinophil pct 0.3 % [facility] Basophil pct 0.6 % [facility] Neutrophil abs 7.32(H) 1.70 - 6.50 K/cumm [facility] Imm gran abs 0.02 0.00 - 0.10 K/cumm [facility] Lymphocyte abs 2.22 0.80 - 3.30 K/cumm [facility] Monocyte abs 0.61 0.20 - 0.80 K/cumm [facility] Eosinophil abs 0.30 0.00 - 0.50 K/cumm [facility] Basophil abs 0.06 0.00 - 0.10 K/cumm [facility] Blood specimen (specimen) 07/24/2017 7:27 AM CDT 07/24/2017 5:25 PM CDT Cassius London MD LAB BLOOD ORDERABLES Fin al Result Performing Organization Address [facility] Co de Phone Number NNEKA CARDENAS [phone] Department [place] [address] * DISCHARGE LABORATORY CUMULATIVE REPORT (07/24/2017 12:00 AM CDT) Narrative 07/24/2017 12:00 AM CDT Ordered by an unspecified provider. Historical Provider LAB BLOOD ORDERABLES Marah l Result documented in this encounter Visit Diagnoses Not on filedocumented in this encounter Care Teams Railroad Police Relationship Specialty Start Date End Date Cassius London MD [address] [place] [address] PCP - General 02/06/17 documented as of this encounter
--- OUTSIDE RECORDS SUMMARY | 2024-10-26 01:18 | XMS_ITS | Encounter Summary ---
Author Organization [facility] Address [address] [place] [address] Care Team Providers Care Stem Setter Name Role Phone Cassius London MD Primary Care Provider + Reason for Visit * Reason Comments Cyst epidermoid cyst on b ack * Surgical (Routine) - Closed Specialty Diagnoses / Procedures Referred By [place] t Referred To Contact General Surgery Diagnoses Sebaceous cyst Cassius London MD Phone: tel: fax: Cassius Gutierrez MD Phone: tel: fax: Referral ID Status Reason Start Date Expiration Date V isits Requested Visits Authorized [id number] Closed Specialty Services Required 08/27/2017 08/27/2018 12 12 Encounter Details Date Type Department Care Team (Late st Contact Info) Description 08/27/2017 2:00 PM CDT Office Visit [facility] [address] [place] [phone] EyeSherrill rosales NP [address] [facility] [place], [place] [id number] Sebaceous cyst Social History Tobacco Use Types Packs/Day Years Used Date Smoking Tobacco: Former Cigarettes Q uit: 2011 Smokeless Tobacco: Never Alcohol Use Standard Drinks/Week Comments No 0 (1 standard drink = 0.6 oz pur e alcohol) Sex and Gender Information Value Date Recorded Sex Assigned at Not on file 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 Subjective/Objective Patient ID: Xavier Clarke is a 76 y.o. male. Chief Complaint Cyst (epidermoid cyst on back) Other This is a new problem. The current episode started 1 to 4 weeks ago. The problem occurs daily. The problem has been gradually improving. Associated symptoms include coughing. Pertinent negatives include no change in bowel habit, chills, diaphoresis, fever or rash. Exacerbated by: friction from clothing and laying in bed. Treatments tried: Patient was seen by PCP and given antibiotics which he hasfinished. The treatment provided significant relief. Review of Systems Constitutional: Negative. Negative for chills, diaphoresis and fever. HENT: Negative. Eyes: Negative. Respiratory: Positive for cough and wheezing. Cardiovascular: Negative. Gastrointestinal: Negative. Negative for change in bowel habit. Endocrine: Negative. Genitourinary: Positive for difficulty urinating and enuresis. Musculoskeletal: Negative. Skin: Negative for rash. Frequent skin lesions, which he sees dermatology for every 6 months Allergic/Immunologic: Negative. Neurological: Negative. Hematological: Bruises/bleeds easily. Psychiatric/Behavioral: Negative. Breast: Negative. Physical Exam Constitutional: He is oriented to person, place, and time. He appears well- developed and well-nourished. HENT: Head: Normocephalic and atraumatic. Eyes: No scleral icterus. Neck: Neck supple. Cardiovascular: Normal rate. Pulmonary/Chest: Effort normal. He has wheezes. He exhibits no tenderness. Abdominal: Soft. There is no tenderness. Neurological: He is alert and oriented to person, place, and time. Skin: Skin is warm and dry. Psychiatric: He has a normal mood and affect. His behavior is normal. Judgment and thought content normal. Assessment/Plan Diagnoses and all orders for this visit: 1. Sebaceous cyst Assessment & Plan: Plan for excision of epidermoid cyst with local anesthesia by Orders: - Ambulatory referral to General Surgery Cosigned by Cassius Gutierrez MD at 08/31/2017 3:06 PM CDT documented in this encounter Miscellaneous Notes * Assessment & Plan Note - Sherrill Lewis NP - 08/27/2017 3:09 PM CDT Associated Problem(s): Sebaceous cyst Plan for excision of epidermoid cyst with local anesthesia by documented in this encounter Plan of Treatment Not on file documented as of this encounter Visit Diagnoses Diagnosis Sebaceous cyst documented in this encounter Orders Outpatient Referral Count Last Ordered Date Fir st Ordered Date AMB REFERRAL TO GENERAL SURGERY 1 7 documented in this encounter Care Teams Stem Setter Relationship Specialty Start Date End Date Cassius London MD [address] [place] [address] PCP - General 02/06/17 documented as of this encounter
--- OUTSIDE RECORDS SUMMARY | 2024-10-26 01:18 | XMS_ITS | Encounter Summary ---
Author Organization [facility] Address [address] [place] [address] Care Team Providers Care Associate Professor Of Sociology Name Role Phone Cassius London MD Primary Care Provider + Encounter Details Date Type Department Care Team (Late st Contact Info) Description 09/02/2017 Transcribe Orders [facility] [address] [place] [phone] Cassius London MD [address] [place] [address] Renal mass (Primary Dx) Social History Tobacco Use Types Packs/Day Years Used Date Smoking Tobacco: Former Cigarettes Q uit: 2012 Smokeless Tobacco: Never Alcohol Use Standard Drinks/Week Comments No 0 (1 standard drink = 0.6 oz pur e alcohol) Sex and Gender Information Value Date Recorded Sex Assigned at Not on file 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
--- OUTSIDE RECORDS SUMMARY | 2024-10-26 01:19 | XMS_ITS | Encounter Summary ---
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 Gender Identity Not on file Sexual Orientation Not on file documented as of this encounter Medications at Time of Discharge tpdtxdgv-zmz-ehfe c-vit K-lycop (ONE-A-DAY MEN'S MULTIVITAMIN) 400-20-300 mcg tablet Take one by mouth one time per day 0 0 08/23/2008 simvastatin (ZOCOR) 40 mg tablet TAKE ONE TABLET BY MOUTH ONCE DAILY IN THE EVENING 90 5 08/28/2008 02/06/2022 documented as of this encounter Plan of Treatment Not on file documented as of this encounter Visit Diagnoses Not on filedocumented in this encounter Care Teams Line Construction Superintendent Relationship Specialty Start Date End Date Cassius London MD [address] [place] [address] PCP - General 01/17/08 01/23/13 documented as of this encounter
--- OUTSIDE RECORDS SUMMARY | 2024-10-26 01:19 | XMS_ITS | Encounter Summary ---
Author Organization [facility] Healthcare Address [address] [place] [address] Care Team Providers Care Dynamic Balancer Set Up Worker Name Role Phone Cassius London MD Primary Care Provider + Encounter Details Date Type Department Care Team (Late st Contact Info) Description 05/28/2015 9:39 AM CDT - 05/28/2015 11:59 PM T Hospital Encounter CH Cassius Duarte MD [address] [place] [address] Routine general medical examination at a health care facility; Vitamin D deficiency; Screening for thyroid disorder; Screening for lipoid disorders; Special screening for malignant neoplasm of prostate Social History Tobacco Use Types Packs/Day Years Used Date Smoking Tobacco: Former Alcohol Use Standard Drinks/Week Comments No 0 (1 standard drink = 0.6 oz pur e alcohol) Sex and Gender Information Value Date Recorded Sex Assigned at Not on file 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 Gender Identity Not on file Sexual Orientation Not on file documented as of this encounter Medications at Time of Discharge mwuisiex-vbe-jfqs c-vit K-lycop (ONE-A-DAY MEN'S MULTIVITAMIN) 400-20-300 mcg tablet Take one by mouth one time per day 0 0 08/23/2008 amLODIPine-valsar mg-hcthiazid (EXFORGE HCT) 5-160-12.5 mg tablet TAKE ONE TABLET BY MOUTH ONCE DAILY 90 2 09/18/2011 08/12/2017 calcium carbonate-vitamin D3 (OS-PINEDA 500 + D3) 500mg (1,250mg) -600 unit tablet take 1 tablet twice a day 0 09/10/2011 08/12/2017 simvastatin (ZOCOR) 40 mg tablet TAKE ONE TABLET BY MOUTH ONCE DAILY IN THE EVENING 90 5 08/28/2008 02/06/2022 documented as of this encounter Plan of Treatment Not on file documented as of this encounter Visit Diagnoses Diagnosis Routine general medical examination at a health care facility Vitamin D deficiency Screening for thyroid disorder Screening for lipoid disorders Special screening for malignant neoplasm of prostate documented in this encounter Care Teams Dynamic Balancer Set Up Worker Relationship Specialty Start Date End Date Cassius London MD [address] [place] [address] PCP - General 01/24/13 01/20/17 documented as of this encounter
--- OUTSIDE RECORDS SUMMARY | 2024-10-26 01:19 | XMS_ITS | Encounter Summary ---
Author Organization [facility] Healthcare Address [address] [place] [address] Care Team Providers Care Mixer Operator Name Role Phone Cassius London MD Primary Care Provider + Encounter Details Date Type Department Care Team (Late st Contact Info) Description 12/05/2015 1:58 PM TOBACCO EDUCATOR - 12/05/2015 11:59 PM TOBACCO EDUCATOR Hospital Encounter [facility] Cassius Duarte MD [address] [place] [address] Rain Isaac NP [address] [place] [address] [address] [place] [address] Cough Social History Tobacco Use Types Packs/Day Years Used Date Smoking Tobacco: Former Alcohol Use Standard Drinks/Week Comments No 0 (1 standard drink = 0.6 oz pur e alcohol) Sex and Gender Information Value Date Recorded Sex Assigned at Not on file Legal Sex Male 1:17 PM TOBACCO EDUCATOR Gender Identity Not on file Sexual Orientation Not on file documented as of this encounter Medications at Time of Discharge albuterol HFA (PROAIR HFA) 90 mcg/actuation inhaler inhale 2 puff by inhalation route every 4 - 6 hours as needed 1 Inhaler 1 09/25/2015 tjijregw-czb-ebc ic-vit K-lycop (ONE-A-DAY MEN'S MULTIVITAMIN) 400-20-300 mcg tablet Take one by mouth one time per day 0 0 08/23/2008 amLODIPine-valsa rtan-hcthiazid (EXFORGE HCT) 5-160-12.5 mg tablet TAKE ONE TABLET BY MOUTH ONCE DAILY 90 2 09/18/2011 7 calcium carbonate-vitami n D3 (OS-PINEDA 500 + D3) 500mg (1,250mg) -600 unit tablet take 1 tablet twice a day 0 09/10/2011 7 fluticasone (FLONASE) 50 mcg/actuation nasal spray [...] Procedure Name Priority Date/Time Associated Diagnosis Comments RESPIRATORY MICROBIOLOGY Routine 12/05/2015 12:00 AM TOBACCO EDUCATOR documented in this encounter Results * Respiratory Microbiology (12/05/2015 12:00 AM TOBACCO EDUCATOR) 12/05/2015 Narrative HISTORICAL RESULTS - 2015 5:48 AM TOBACCO EDUCATOR [facility] ?Patient Name: ?CLARITA JUAN ?Med. Rec#: ?? [id number] ?Pt. Acct.#: ??[id number] ?Birthdate: ?? 1940 ?Age / Sex: ?? 75Y / M ?Location: ?[facility] ([facility] ?Admit Date: ??12/05/2015 ?Discharge Date: ? 12/05/2015 ?Doctor: ?Patient Type: ?CH Ref Lab - Insuran Culture, Respiratory ? Collected: 12/05/2015 13:58 Specimen: Sputum ?? Specimen Source: Status: Final ??Last Update: 12/08/2015 11:16 Gram Stain ?? Many neutrophils seen ?? Many Gram positive diplococci resembling Strep. pneumoniae ?? seen ?? Few Gram positive cocci seen ?? Few Gram positive coccobacilli seen Culture Result ?? Light growth of ?? normal oral priyank Organism ?? Moderate growth of ?? Streptococcus pneumoniae ? High doses of IV penicillins or ampicillin are ?? effective in treating PNEUMONIA due to strains in the ?? 'Intermediate' category. ?$$'s REPRESENT ?- ?IN-PATIENT COST ? - ?- ?Amoxicillin ? <=0.25 ?S ?$ ?Ceftriaxone Mening ?S ? $ ?Ceftriaxone Nonmeng ? S ?? $ ?Erythromycin ?>4 ?R ?? $$$ ?Levofloxacin ?1 ? S ?? $$ ?Penicillin Mening ? S ?? $$ ?Penicillin Nonmeng ?S ?? $$ ?Tetracycline ?0.5 ? S ? $ ?Trimeth/Sulfa ? <=0.25/ ?? S ?$ ?4.75 ?Vancomycin ?0.5 ? S ?? $$ Sputum Screen ?? Specimen meets criteria for sputum. us Historical Provider LAB MICROBIOLOGY - GENERA L ORDERABLES Final Result HISTORICAL RESULTS documented in this encounter Visit Diagnoses Diagnosis Cough documented in this encounter Care Teams Mixer Operator Relationship Specialty Start Date End Date Cassius London MD [address] [place] [address] PCP - General 01/24/13 01/20/17 documented as of this encounter
--- OUTSIDE RECORDS SUMMARY | 2024-10-26 01:19 | XMS_ITS | Encounter Summary ---
Author Organization [facility] Healthcare Address [address] [place] [address] Care Team Providers Care Technical Healthcare Consultant Name Role Phone Cassius London MD Primary Care Provider + Encounter Details Date Type Department Care Team (Late st Contact Info) Description 04/30/2009 12:01 AM CDT - 04/30/2009 11:59 PM CDT Hospital Encounter [facility] Cassius London MD [address] [place] [address] Hematuria Social History Tobacco Use Types Packs/Day Years Used Date Smoking Tobacco: Never Assessed Sex and Gender Information Value Date Recorded Sex Assigned at Not on file Legal Sex Male 1:17 PM QUALITY ASSURANCE INSPECTOR Gender Identity Not on file Sexual Orientation Not on file documented as of this encounter Medications at Time of Discharge mzmbjdox-cob-lhfc c-vit K-lycop (ONE-A-DAY MEN'S MULTIVITAMIN) 400-20-300 mcg tablet Take one by mouth one time per day 0 0 08/23/2008 simvastatin (ZOCOR) 40 mg tablet TAKE ONE TABLET BY MOUTH ONCE DAILY IN THE EVENING 90 5 08/28/2008 02/06/2022 documented as of this encounter Plan of Treatment Not on file documented as of this encounter Visit Diagnoses Diagnosis Hematuria Hematuria, unspecified documented in this encounter Care Teams Technical Healthcare Consultant Relationship Specialty Start Date End Date Cassius London MD [address] [place] [address] PCP - General 01/17/08 01/23/13 documented as of this encounter
--- OUTSIDE RECORDS SUMMARY | 2024-10-26 01:19 | XMS_ITS | Encounter Summary ---
Author Organization [facility] Address [address] [place] [address] Care Team Providers Care Supply Chain Vice President Name Role Phone Cassius London MD Primary Care Provider + Encounter Details Date Type Department Care Team (Late st Contact Info) Description 01/22/2010 12:01 AM CDT - 01/22/2010 11:59 PM CDT Hospital Encounter [facility] Follow-up examination, following other surgery; Benign neoplasm of rectum and anal canal; Internal hemorrhoids; Essential hypertension; Tobacco use disorder Social History Tobacco Use Types Packs/Day Years Used Date Smoking Tobacco: Never Assessed Sex and Gender Information Value Date Recorded Sex Assigned at Not on file Legal Sex Male 1:17 PM NITROGEN OPERATOR Gender Identity Not on file Sexual Orientation Not on file documented as of this encounter Medications at Time of Discharge zihkkvht-jsg-cbyz c-vit K-lycop (ONE-A-DAY MEN'S MULTIVITAMIN) 400-20-300 mcg tablet Take one by mouth one time per day 0 0 08/23/2008 simvastatin (ZOCOR) 40 mg tablet TAKE ONE TABLET BY MOUTH ONCE DAILY IN THE EVENING 90 5 08/28/2008 02/06/2022 documented as of this encounter Plan of Treatment Not on file documented as of this encounter Visit Diagnoses Diagnosis Follow-up examination, following other surgery Benign neoplasm of rectum and anal canal Internal hemorrhoids Internal hemorrhoids without mention of complication Essential hypertension Unspecified essential hypertension Tobacco use disorder documented in this encounter Care Teams Supply Chain Vice President Relationship Specialty Start Date End Date Cassius London MD [address] [address] PCP - General 01/17/08 01/23/13 documented as of this encounter
--- OUTSIDE RECORDS SUMMARY | 2024-10-26 01:19 | XMS_ITS | Encounter Summary ---
Author Organization [facility] Healthcare Address [address] [place] [address] Care Team Providers Care Dispensary Technician Name Role Phone Cassius London MD Primary Care Provider + Encounter Details Date Type Department Care Team (Late st Contact Info) Description 01/17/2008 12:01 AM CDT - 01/17/2008 11:59 PM CDT Hospital Encounter [facility] Cassius London MD [address] [place] [address] Social History Tobacco Use Types Packs/Day Years Used Date Smoking Tobacco: Never Assessed Sex and Gender Information Value Date Recorded Sex Assigned at Not on file Legal Sex Male 1:17 PM AUTOMOTIVE SALES ASSOCIATE Gender Identity Not on file Sexual Orientation Not on file documented as of this encounter Plan of Treatment Not on file documented as of this encounter Visit Diagnoses Not on filedocumented in this encounter Care Teams Dispensary Technician Relationship Specialty Start Date End Date Cassius London MD [address] [place] [address] PCP - General 01/17/08 01/23/13 documented as of this encounter
--- OUTSIDE RECORDS SUMMARY | 2024-10-26 01:19 | XMS_ITS | Encounter Summary ---
Author Organization [facility] Healthcare Address [address] [place] [address] Care Team Providers Care Nursing Director Name Role Phone Cassius London MD Primary Care Provider + Encounter Details Date Type Department Care Team (Late st Contact Info) Description 07/04/2015 8:22 AM CDT - 07/04/2015 11:59 PM CDT Hospital [place] [address] [address] Congenital cystic kidney disease Social History Tobacco Use Types Packs/Day Years Used Date Smoking Tobacco: Former Alcohol Use Standard Drinks/Week Comments No 0 (1 standard drink = 0.6 oz pur e alcohol) Sex and Gender Information Value Date Recorded Sex Assigned at Not on file Legal Sex Male 1:17 PM BUTTON TUFTER Gender Identity Not on file Sexual Orientation Not on file documented as of this encounter Medications at Time of Discharge qyeeyecc-nyp-rfuw c-vit K-lycop (ONE-A-DAY MEN'S MULTIVITAMIN) 400-20-300 mcg [...] Procedure Name Priority Date/Time Associated Diagnosis Comments RENAL SONOGRAPHY Routine 07/04/2015 9:04 AM CDT documented in this encounter Results * RENAL SONOGRAPHY (07/04/2015 9:04 AM CDT) Anatomical Region Laterality Modality N/A Ultrasound 07/04/2015 9:04 AM CDT Narrative 07/04/2015 3:50 PM CDT MR US Kidney(s) [id number] ??Acc#: ??[id number] DATE OF EXAM: ??Jul 04 2015 CLINICAL HISTORY: Hematuria. RESULT: A renal ultrasound was performed and compared with the prior study of 05/22/09. ??Correlation with a CT of the abdomen and pelvis from 06/14/15 is also made. ??The right kidney measures 11.5 x 5.0 x 4.9cm, previously 12.0 x 4.4 x 6.0cm. ??The left kidney measures 10.2 x 5.7 x 5.1cm, previously 12.5 x 5.1 x 6.8cm. ??Multiple left renal cysts are again seen with the largest measuring 3.5 x 2.9 x 3.9cm. ??On the prior study, this cyst measured 2.2 x 1.8 x 2.5cm. ??A second new cyst is seen from the superior aspect of the left kidney measuring 1.5 x 1.4 x 1.5cm. ??No suspicious solid renal lesions are identified. ??The kidneys demonstrate normal parenchymal thickness and cortical echogenicity. ??No hydronephrosis is noted. ??Views of the bladder are unremarkable. IMPRESSION: TWO SIMPLE LEFT RENAL CYSTS WHICH AT LEAST ONE HAS INCREASED IN SIZE. ??NO SOLID COMPONENTS ARE SEEN ON THE CURRENT EXAM TO INDICATE A SUSPICIOUS MALIGNANT PROCESS ALTHOUGH ENHANCEMENT WAS REPORTED ON THE RECENT CT SCAN. Interpreting Physician: ??MARLENA DHILLON M.D. ??Read on: ??Jul 04 2015 10:03A Transcribed by: ??mrr ??On: Jul 04 2015 ??3:37P Approved Electronically by: ??MARLENA DHILLON M.D. ??on: ??Jul 04 2015 3:50P Attending: ??RASTA MAC Requesting: ??DR RASTA MAC Requesting Fax: ??-- Attending Fax: ??-- Attending ID: ??[id number] Requesting ID: ??[id number] Report To 1 ID: ??[id number] Report To 1 Name: ??RASTA MAC Report To 1 FAX: ??-- NextGen Order #: Procedure Note Provider, MD Shilo - 03/03/2017 MR US Kidney(s) [id number] Acc#: [id number] DATE OF EXAM: Jul 04 2015 CLINICAL HISTORY: Hematuria. RESULT: A renal ultrasound was performed and compared with the prior study of05/22/09. Correlation with a CT of the abdomen and pelvis from 06/14/15 isalso made. The right kidney measures 11.5 x 5.0 x 4.9cm, previously 12.0x 4.4 x 6.0cm. The left kidney measures 10.2 x 5.7 x 5.1cm, previously 12.5 x 5.1 x 6.8cm. Multiple left renal cysts are again seen with thelargest measuring 3.5 x 2.9 x 3.9cm. On the prior study, this cystmeasured 2.2 x 1.8 x 2.5cm. A second new cyst is seen from the superioraspect of the left kidney measuring 1.5 x 1.4 x 1.5cm. No suspicioussolid renal lesions are identified. The kidneys demonstrate normalparenchymal thickness and cortical echogenicity. No hydronephrosis isnoted. Views of the bladder are unremarkable. IMPRESSION: TWO SIMPLE LEFT RENAL CYSTS WHICH AT LEAST ONE HAS INCREASED IN SIZE. NOSOLID COMPONENTS ARE SEEN ON THE CURRENT EXAM TO INDICATE A SUSPICIOUSMALIGNANT PROCESS ALTHOUGH ENHANCEMENT WAS REPORTED ON THE RECENT CTSCAN. Interpreting Physician: MARLENA DHILLON M.D. Read on: Jul 04 201510:03A Transcribed by: mrr On: Jul 04 2015 3:37P Approved Electronically by: MARLENA DHILLON M.D. 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
--- OUTSIDE RECORDS SUMMARY | 2024-10-26 01:19 | XMS_ITS | Encounter Summary ---
Author Organization [facility] Healthcare Address [address] [place] [address] Care Team Providers Care Account Underwriter Name Role Phone Cassius London MD Primary Care Provider + Encounter Details Date Type Department Care Team (Late st Contact Info) Description 12/21/2006 12:01 AM ASSOCIATE TEAM PHYSICIAN - 12/21/2006 11:59 PM ASSOCIATE TEAM PHYSICIAN Hospital Encounter [facility] Cassius London MD [address] [place] [address] [place] [address] Social History Tobacco Use Types Packs/Day Years Used Date Smoking Tobacco: Never Assessed Sex and Gender Information Value Date Recorded Sex Assigned at Not on file Legal Sex Male 1:17 PM ASSOCIATE TEAM PHYSICIAN Gender Identity Not on file Sexual Orientation Not on file documented as of this encounter Plan of Treatment Not on file documented as of this encounter Visit Diagnoses Not on filedocumented in this encounter Care Teams Account Underwriter Relationship Specialty Start Date End Date Cassius London MD [address] [place] [address] PCP - General 11/30/06 04/25/07 documented as of this encounter
--- OUTSIDE RECORDS SUMMARY | 2024-10-26 01:19 | XMS_ITS | Encounter Summary ---
Author Organization [facility] Healthcare Address [address] [place] [address] Care Team Providers Care Medical Certification Specialist Name Role Phone Cassius London MD Primary Care Provider + Encounter Details Date Type Department Care Team (Late st Contact Info) Description 12/29/2006 12:01 AM HOG SLAUGHTERER - 12/29/2006 11:59 PM HOG SLAUGHTERER Hospital Encounter [facility] Social History Tobacco Use Types Packs/Day Years Used Date Smoking Tobacco: Never Assessed Sex and Gender Information Value Date Recorded Sex Assigned at Not on file Legal Sex Male 1:17 PM HOG SLAUGHTERER Gender Identity Not on file Sexual Orientation Not on file documented as of this encounter Plan of Treatment Not on file documented as of this encounter Visit Diagnoses Not on filedocumented in this encounter Care Teams Medical Certification Specialist Relationship Specialty Start Date End Date Cassius London MD [address] [facility] [place] [address] PCP - General 11/30/06 04/25/07 documented as of this encounter
--- OUTSIDE RECORDS SUMMARY | 2024-10-26 01:19 | XMS_ITS | Encounter Summary ---
Author Organization [facility] Healthcare Address [address] [place] [address] Care Team Providers Care Delivery Driver/Supervisor Name Role Phone Cassius London MD Primary Care Provider + Encounter Details Date Type Department Care Team (Late st Contact Info) Description 11/20/2014 7:51 AM ORNAMENTAL MACHINE OPERATOR - 11/20/2014 11:59 PM RUST Hospital Encounter [facility] Cassius Duarte MD [address] [place] [address] Other and unspecified hyperlipidemia; Essential hypertension Social History Tobacco Use Types Packs/Day Years Used Date Smoking Tobacco: Former Alcohol Use Standard Drinks/Week Comments No 0 (1 standard drink = 0.6 oz pur e alcohol) Sex and Gender Information Value Date Recorded Sex Assigned at Not on file Legal Sex Male 1:17 PM ORNAMENTAL MACHINE OPERATOR Gender Identity Not on file Sexual Orientation Not on file documented as of this encounter Medications at Time of Discharge wdzujend-arm-ycxz c-vit K-lycop (ONE-A-DAY MEN'S MULTIVITAMIN) 400-20-300 mcg [...] of this encounter Visit Diagnoses Diagnosis Other and unspecified hyperlipidemia Essential hypertension Unspecified essential hypertension documented in this encounter Care Teams Delivery Driver/Supervisor Relationship Specialty Start Date End Date Cassius London MD [address] [place] [address] PCP - General 01/24/13 01/20/17 documented as of this encounter
--- OUTSIDE RECORDS SUMMARY | 2024-10-26 01:19 | XMS_ITS | Encounter Summary ---
Author Organization [facility] Healthcare Address [address] [place] [address] Care Team Providers Care Leather Crafter Name Role Phone Cassius London MD Primary Care Provider + Encounter Details Date Type Department Care Team (Late st Contact Info) Description 05/05/2007 12:01 AM CDT - 05/05/2007 11:59 PM CDT Hospital Encounter [facility] Cassius London MD [address] [place] [address] Social History Tobacco Use Types Packs/Day Years Used Date Smoking Tobacco: Never Assessed Sex and Gender Information Value Date Recorded Sex Assigned at Not on file Legal Sex Male 1:17 PM 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
--- OUTSIDE RECORDS SUMMARY | 2024-10-26 01:19 | XMS_ITS | Encounter Summary ---
Author Organization [facility] Healthcare Address [address] [place] [address] Care Team Providers Care Design Engineering Intern Name Role Phone Cassius London MD Primary Care Provider + Encounter Details Date Type Department Care Team (Late st Contact Info) Description 03/18/2008 12:01 AM CDT - 03/18/2008 11:59 PM CDT Hospital Encounter [facility] Cassius London MD [address] [place] [address] Social History Tobacco Use Types Packs/Day Years Used Date Smoking Tobacco: Never Assessed Sex and Gender Information Value Date Recorded Sex Assigned at Not on file Legal Sex Male 1:17 PM REFRIGERATION SPECIALIST Gender Identity Not on file Sexual Orientation Not on file documented as of this encounter Plan of Treatment Not on file documented as of this encounter Visit Diagnoses Not on filedocumented in this encounter Care Teams Design Engineering Intern Relationship Specialty Start Date End Date Cassius London MD [address] [place] [address] PCP - General 01/17/08 01/23/13 documented as of this encounter
--- OUTSIDE RECORDS SUMMARY | 2024-10-26 01:19 | XMS_ITS | Encounter Summary ---
Author Organization [facility] Healthcare Address [address] [place] [address] Care Team Providers Care Documentation Manager Name Role Phone Cassius London MD Primary Care Provider + Encounter Details Date Type Department Care Team (Late st Contact Info) Description 05/22/2009 12:01 AM CDT - 05/22/2009 11:59 PM T Hospital Encounter [facility] Cassius Duarte MD [address] [place] [address] [place] [address] Abdominal pain; Hematuria Social History Tobacco Use Types Packs/Day Years Used Date Smoking Tobacco: Never Assessed Sex and Gender Information Value Date Recorded Sex Assigned at Not on file Legal Sex Male 1:17 PM ZIG ZAG STITCHER Gender Identity Not on file Sexual Orientation Not on file documented as of this encounter Medications at Time of Discharge xibsmoau-dfp-cmnt c-vit K-lycop (ONE-A-DAY MEN'S MULTIVITAMIN) 400-20-300 mcg tablet Take one by mouth one time per day 0 0 08/23/2008 simvastatin (ZOCOR) 40 mg tablet TAKE ONE TABLET BY MOUTH ONCE DAILY IN THE EVENING 90 5 08/28/2008 02/06/2022 documented as of this encounter Plan of Treatment Not on file documented as of this encounter Visit Diagnoses Diagnosis Abdominal pain Abdominal pain, unspecified site Hematuria Hematuria, unspecified documented in this encounter Care Teams Documentation Manager Relationship Specialty Start Date End Date Cassius London MD [address] [place] [address] [address] [place], [place] [address] PCP - General 01/17/08 01/23/13 documented as of this encounter
--- OUTSIDE RECORDS SUMMARY | 2024-10-26 01:19 | XMS_ITS | Encounter Summary ---
Author Organization [facility] Healthcare Address [address] [place] [address] Care Team Providers Care Flipping Machine Operator Name Role Phone Cassius London MD Primary Care Provider + Encounter Details Date Type Department Care Team (Late st Contact Info) Description 03/27/2008 12:01 AM CDT - 03/27/2008 11:59 PM CDT Hospital Encounter [facility] Cassius London MD [address] [place] [address] Social History Tobacco Use Types Packs/Day Years Used Date Smoking Tobacco: Never Assessed Sex and Gender Information Value Date Recorded Sex Assigned at Not on file Legal Sex Male 1:17 PM DAIRY EQUIPMENT REPAIRER Gender Identity Not on file Sexual Orientation Not on file documented as of this encounter Plan of Treatment Not on file documented as of this encounter Visit Diagnoses Not on filedocumented in this encounter Care Teams Flipping Machine Operator Relationship Specialty Start Date End Date Cassius London MD [address] [place] [address] PCP - General 01/17/08 01/23/13 documented as of this encounter
--- OUTSIDE RECORDS SUMMARY | 2024-10-26 01:19 | XMS_ITS | Encounter Summary ---
Author Organization [facility] Healthcare Address [address] [place] [address] Care Team Providers Care Roller Shop Utility Worker Name Role Phone Cassius London MD Primary Care Provider + Encounter Details Date Type Department Care Team (Late st Contact Info) Description 12/03/2015 7:16 AM MECHANICAL EQUIPMENT SALES ENGINEER - 12/03/2015 11:59 PM MECHANICAL EQUIPMENT SALES ENGINEER Hospital Encounter [facility] Cassius Duarte MD [address] [place] [address] Mixed hyperlipidemia Social History Tobacco Use Types Packs/Day Years Used Date Smoking Tobacco: Former Alcohol Use Standard Drinks/Week Comments No 0 (1 standard drink = 0.6 oz pur e alcohol) Sex and Gender Information Value Date Recorded Sex Assigned at Not on file Legal Sex Male 1:17 PM MECHANICAL EQUIPMENT SALES ENGINEER Gender Identity Not on file Sexual Orientation Not on file documented as of this encounter Medications at Time of Discharge albuterol HFA (PROAIR HFA) 90 mcg/actuation inhaler inhale 2 puff by inhalation route every 4 - 6 hours as needed 1 Inhaler 1 09/25/2015 nwkggdgd-rwl-qnr ic-vit K-lycop (ONE-A-DAY MEN'S MULTIVITAMIN) 400-20-300 mcg [...] as of this encounter Visit Diagnoses Diagnosis Mixed hyperlipidemia documented in this encounter Care Teams Roller Shop Utility Worker Relationship Specialty Start Date End Date Cassius London MD [address] [place] [address] PCP - General 01/24/13 01/20/17 documented as of this encounter
--- OUTSIDE RECORDS SUMMARY | 2024-10-26 01:19 | XMS_ITS | Encounter Summary ---
Author Organization [facility] Healthcare Address [address] [place] [address] Care Team Providers Care Cylinder Press Operator Name Role Phone Cassius London MD Primary Care Provider + Encounter Details Date Type Department Care Team (Late st Contact Info) Description 01/10/2016 1:00 PM CORONER TRANSPORT TECHNICIAN - 01/10/2016 11:59 PM [facility] Hospital Encounter [place] [address] [address] Encounter for screening for other bacterial diseases; Elevated prostate specific antigen (PSA) Social History Tobacco Use Types Packs/Day Years Used Date Smoking Tobacco: Former Alcohol Use Standard Drinks/Week Comments No 0 (1 standard drink = 0.6 oz pur e alcohol) Sex and Gender Information Value Date Recorded Sex Assigned at Not on file Legal Sex Male 1:17 PM CORONER TRANSPORT TECHNICIAN Gender Identity Not on file Sexual Orientation Not on file documented as of this encounter Medications at Time of Discharge albuterol HFA (PROAIR HFA) 90 mcg/actuation inhaler inhale 2 puff by inhalation route every 4 - 6 hours as needed 1 Inhaler 1 09/25/2015 pvydmoyt-hux-vkk ic-vit K-lycop (ONE-A-DAY MEN'S MULTIVITAMIN) 400-20-300 mcg [...] Procedure Name Priority Date/Time Associated Diagnosis Comments CIPRO RESISTANT BACILLI SCREEN, CULTURE Routine 01/10/2016 12:00 AM CORONER TRANSPORT TECHNICIAN documented in this encounter Results * Cipro Resistant Bacilli Screen, Culture (01/10/2016 12:00 AM CORONER TRANSPORT TECHNICIAN) 01/10/2016 Narrative HISTORICAL RESULTS - 01/12/2016 4:50 PM CORONER TRANSPORT TECHNICIAN [facility] ?Patient Name: ?CLARITA JUAN ?Med. Rec#: ?? [id number] ?Pt. Acct.#: ??[id number] ?Birthdate: ?? 1940 ?Age / Sex: ?? 75Y / M ?Location: ?[facility] ([facility] ?Admit Date: ??01/10/2016 ?Discharge Date: ? 01/10/2016 ?Doctor: ?Yadiel Quezada M.D. ?Patient Type: ?[facility] Ref Lab - Insuran Culture, Cipro Resistant Bacilli Screen Collected: 01/10/2016 13:00 Specimen: CRBS Rectal Swab ?? Specimen Source: Status: Final ??Last Update: 01/12/2016 10:56 Culture Result ?? No Ciprofloxacin Resistant Gram Negative Bacilli isolated us Historical Provider LAB MICROBIOLOGY - GENERA L ORDERABLES Final Result HISTORICAL RESULTS documented in this encounter Visit Diagnoses Diagnosis Encounter for screening for other bacterial diseases Elevated prostate specific antigen (PSA) documented in this encounter Care Teams Cylinder Press Operator Relationship Specialty Start Date End Date Cassius London MD [address] [address] PCP - General 01/24/13 01/20/17 documented as of this encounter
--- OUTSIDE RECORDS SUMMARY | 2024-10-26 01:19 | XMS_ITS | Encounter Summary ---
Author Organization [facility] Healthcare Address [address] [place] [address] Care Team Providers Care Button Clamper Name Role Phone Cassius London MD Primary Care Provider + Encounter Details Date Type Department Care Team (Late st Contact Info) Description 08/26/2010 12:01 AM CDT - 08/26/2010 11:59 PM CDT Hospital Encounter [facility] Cassius Duarte MD [address] [place] [address] Procedure not carried out for other reasons Social History Tobacco Use Types Packs/Day Years Used Date Smoking Tobacco: Never Assessed Sex and Gender Information Value Date Recorded Sex Assigned at Not on file Legal Sex Male 1:17 PM TRAFFIC DIRECTOR Gender Identity Not on file Sexual Orientation Not on file documented as of this encounter Medications at Time of Discharge poptvhvp-sbl-gdgd c-vit K-lycop (ONE-A-DAY MEN'S MULTIVITAMIN) 400-20-300 mcg tablet Take one by mouth one time per day 0 0 08/23/2008 simvastatin (ZOCOR) 40 mg tablet TAKE ONE TABLET BY MOUTH ONCE DAILY IN THE EVENING 90 5 08/28/2008 02/06/2022 documented as of this encounter Plan of Treatment Not on file documented as of this encounter Visit Diagnoses Diagnosis Procedure not carried out for other reasons documented in this encounter Care Teams Button Clamper Relationship Specialty Start Date End Date Cassius London MD [address] [place], [place] [address] PCP - General 01/17/08 01/23/13 documented as of this encounter
--- OUTSIDE RECORDS SUMMARY | 2024-10-26 01:19 | XMS_ITS | Encounter Summary ---
Author Organization [facility] Healthcare Address [address] [place] [address] Care Team Providers Care Tow Car Driver Name Role Phone Cassius Blanton MD Primary Care Provider + Encounter Details Date Type Department Care Team (Late st Contact Info) Description 06/14/2015 7:32 AM CDT - 06/14/2015 11:59 PM T Hospital Encounter [facility] Cassius Duarte MD [address] [place] [address] Acquired cyst of kidney; Disorder of kidney and ureter; Unspecified hyperplasia of prostate without urinary obstruction and other lower urinary tract symptoms (LUTS); Diverticulosis of colon Social History Tobacco Use Types Packs/Day Years Used Date Smoking Tobacco: Former Alcohol Use Standard Drinks/Week Comments No 0 (1 standard drink = 0.6 oz pur e alcohol) Sex and Gender Information Value Date Recorded Sex Assigned at Not on file Legal Sex Male 1:17 PM 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 Historical Provider LAB BLOOD ORDERABLES Marah l Result * XR Urogram W WO Kub W WO Tomogram (06/14/2015 8:25 AM CDT) Anatomical Region Laterality Modality Body, Abdomen N/A Radiographic Meseret ging 06/14/2015 8:25 AM CDT Narrative 06/14/2015 2:[address] IVP Urogram W/WO [id number] ??Acc#: ??[id number] DATE OF EXAM: ??Jun ??2014 CLINICAL HISTORY: Microscopic hematuria. RESULT: PROTOCOL: ??Helically acquired axial images were obtained from the dome of the diaphragm to the pubic symphysis before and after the administration of IV contrast. ??Delayed coronal CT urogram images were also performed. FINDINGS: ??Precontrast images demonstrate no evidence of renal or ureteral calculus or urinary tract dilatation. ??Diffuse vascular calcification is seen. Post contrast images demonstrate a large left midpole renal cyst which is mildly hyperdense. ??There is an exophytic enhancing lesion in the lower pole of the left kidney which is indeterminate and may represent a small renal cell carcinoma. ??An additional smaller posterior cyst of the midpole is noted. ??The right kidney contains several scattered small cortical cysts. The liver, spleen, pancreas and adrenal glands are normal. ??The small and large bowel are nondilated. ??Sigmoid diverticulosis is present. ??There is no evidence of mass or lymphadenopathy. ??The pelvic contents are normal apart from prostatic enlargement. ??The lung bases are clear. Delayed coronal CT urogram images demonstrate normal caliber urinary tracts. ??There is no evidence of mass lesion, filling defect or stricture. ??The urinary bladder fills normally with inferior indentation from enlarged prostate. IMPRESSION: 1. NO EVIDENCE OF URINARY TRACT CALCULUS OR OBSTRUCTION. 2. BILATERAL RENAL CYSTS. 3. 15 MM ENHANCING EXOPHYTIC LESION FROM THE POSTERIOR MID TO LOWER POLE OF THE LEFT KIDNEY WHICH IS INDETERMINATE AND MAY REPRESENT A SMALL RENAL CELL CARCINOMA. 4. PROSTATIC HYPERTROPHY. 5. SIGMOID DIVERTICULOSIS. Interpreting Physician: ??DR RON JENSEN M.D. ??Read on: ??Jun ??2014 8:57A Transcribed by: ??va ??On: Jun ??2014 ??2:31P Approved Electronically by: ??MIKEY Garner, DR VELASQUEZ ??on: ??Jun ??2014 2:57P Attending: ??CASSIUS BLANTON Requesting: ??DR CASSIUS BLANTON Requesting Fax: ??-- Attending Fax: ??-- Attending ID: ??[id number] Requesting ID: ??[id number] Report To 1 ID: ??[id number] Report To 1 Name: ??CASSIUS BLANTON Report To 1 FAX: ??-- NextGen Order #: Procedure Note Provider, MD Shilo - 03/03/2017 CT IVP Urogram W/WO [id number] Acc#: [id number] DATE OF EXAM: Jun 14 2015 CLINICAL HISTORY: Microscopic hematuria. RESULT: PROTOCOL: Helically acquired axial images were obtained from the dome ofthe diaphragm to the pubic symphysis before and after the administrationof IV contrast. Delayed coronal CT urogram images were also performed. FINDINGS: Precontrast images demonstrate no evidence of renal or ureteralcalculus or urinary tract dilatation. Diffuse vascular calcification isseen. Post contrast images demonstrate a large left midpole renal cystwhich is mildly hyperdense. There is an exophytic enhancing lesion in thelower pole of the left kidney which is indeterminate and may represent asmall renal cell carcinoma. An additional smaller posterior cyst of themidpole is noted. The right kidney contains several scattered smallcortical cysts. The liver, spleen, pancreas and adrenal glands are normal.The small and large bowel are nondilated. Sigmoid diverticulosis ispresent. There is no evidence of mass or lymphadenopathy. The pelviccontents are normal apart from prostatic enlargement. The lung bases areclear. Delayed coronal CT urogram images demonstrate normal caliberurinary tracts. There is no evidence of mass lesion, filling defect orstricture. The urinary bladder fills normally with inferior indentation from enlarged prostate. IMPRESSION: 1. NO EVIDENCE OF URINARY TRACT CALCULUS OR OBSTRUCTION. 2. BILATERAL RENAL CYSTS. 3. 15 MM ENHANCING EXOPHYTIC LESION FROM THE POSTERIOR MID TO LOWER POLEOF THE LEFT KIDNEY WHICH IS INDETERMINATE AND MAY REPRESENT A SMALL RENALCELL CARCINOMA. 4. PROSTATIC HYPERTROPHY. 5. SIGMOID DIVERTICULOSIS. Interpreting Physician: DR RON JENSEN M.D. Read on: Jun 14 20158:57A Transcribed by: bre On: Jun 14 2015 2:31P Approved Electronically by: MIKEY Garner, DR VELASQUEZ on: Jun 14 20152:57P Attending: CASSIUS BLANTON Requesting: DR CASSIUS BLANTON Requesting Fax: -- Attending Fax: -- Attending ID: [id number] Requesting ID: [id number] Report To 1 ID: [id number] Report To 1 Name: CASSIUS BLANTON Report To 1 FAX: -- NextGen Order #: us Historical Provider IMG FLUOROSCOPY PROCEDURE S Final Result * Serum creatinine (06/14/2015 2:41 AM CDT) Creatinine, bld 1.12 0.60 - 1.30 mg/dl HISTORICAL RESULTS Serum 06/14/2015 2:41 AM CDT Narrative HISTORICAL RESULTS - 06/14/2015 2:[address] us Cassius Blanton MD LAB BLOOD ORDERABLES Fin al Result HISTORICAL RESULTS documented in this encounter Visit Diagnoses Diagnosis Acquired cyst of kidney Disorder of kidney and ureter Unspecified disorder of kidney and ureter Unspecified hyperplasia of prostate without urinary obstruction and other lower urinary tract symptoms (LUTS) Diverticulosis of colon Diverticulosis of colon (without mention of hemorrhage) documented in this encounter Care Teams Tow Car Driver Relationship Specialty Start Date End Date Cassius Blanton MD [address] [place] [address] PCP - General 01/24/13 01/20/17 documented as of this encounter
--- OUTSIDE RECORDS SUMMARY | 2024-10-26 01:19 | XMS_ITS | Encounter Summary ---
Author Organization [facility] Healthcare Address [address] [place] [address] Care Team Providers Care Scheduling Clerk Name Role Phone Cassius London MD Primary Care Provider + Encounter Details Date Type Department Care Team (Late st Contact Info) Description 09/01/2010 7:00 PM CDT - 09/01/2010 11:59 PM CDT Hospital Encounter [facility] Cassius Duarte MD [address] [place] [address] Narcolepsy without cataplexy(347.00) Social History Tobacco Use Types Packs/Day Years Used Date Smoking Tobacco: Never Assessed Sex and Gender Information Value Date Recorded Sex Assigned at Not on file Legal Sex Male 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 Gender Identity Not on file Sexual Orientation Not on file documented as of this encounter Medications at Time of Discharge oyiuxbvz-rtc-xdhu c-vit K-lycop (ONE-A-DAY MEN'S MULTIVITAMIN) 400-20-300 mcg tablet Take one by mouth one time per day 0 0 08/23/2008 simvastatin (ZOCOR) 40 mg tablet TAKE ONE TABLET BY MOUTH ONCE DAILY IN THE EVENING 90 5 08/28/2008 02/06/2022 documented as of this encounter Plan of Treatment Not on file documented as of this encounter Visit Diagnoses Diagnosis 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
--- OUTSIDE RECORDS SUMMARY | 2024-10-26 01:19 | XMS_ITS | Encounter Summary ---
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
--- OUTSIDE RECORDS SUMMARY | 2024-10-26 01:19 | XMS_ITS | Encounter Summary ---
Author Organization [facility] Healthcare Address [address] [place] [address] Care Team Providers Care Bulk Plant Agent Name Role Phone Cassius Blanton MD Primary Care Provider + Encounter Details Date Type Department Care Team (Late st Contact Info) Description 12/10/2015 12:32 PM PHOTOGRAPH MOUNTER - 12/10/2015 11:59 PM [facility] Hospital Encounter [facility] Cassius Duarte MD [address] [facility] [address] [place] [address] Greta Isaac NP [address] [place] [address] [address] [place] [address] Chronic obstructive pulmonary disease with acute exacerbation (CMS/HCC) Social History Tobacco Use Types Packs/Day Years Used Date Smoking Tobacco: Former Alcohol Use Standard Drinks/Week Comments No 0 (1 standard drink = 0.6 oz pur e alcohol) Sex and Gender Information Value Date Recorded Sex Assigned at Not on file Legal Sex Male 1:17 PM PHOTOGRAPH MOUNTER Gender Identity Not on file Sexual Orientation Not on file documented as of this encounter Medications at Time of Discharge albuterol HFA (PROAIR HFA) 90 mcg/actuation inhaler inhale 2 puff by inhalation route every 4 - 6 hours as needed 1 Inhaler 1 09/25/2015 bodvnddx-lkj-uci ic-vit K-lycop (ONE-A-DAY MEN'S MULTIVITAMIN) 400-20-300 mcg [...] Associated Diagnosis Comments CT CHEST W CONTRAST Routine 12/10/2015 1 :07 PM PHOTOGRAPH MOUNTER documented in this encounter Results * CT Chest W Contrast (12/10/2015 1:07 PM PHOTOGRAPH MOUNTER) Anatomical Region Laterality Modality Body N/A Computed Tomogra phy 12/10/2015 1:07 PM PHOTOGRAPH MOUNTER Narrative 12/10/2015 5:18 PM PHOTOGRAPH MOUNTER CC: ??DR Jennifer BLANTON CT Chest W ?[id number] ??Acc#: ??[id number] DATE OF EXAM: ??Dec ??2015 CLINICAL HISTORY: COPD exacerbation, persistent cough. RESULT: Helically acquired axial images were obtained from the lung apices to the base of the diaphragm following the administration of 75 ml of Optiray 320. Comparison is made with the prior study dated 03/27/08. ??Apical scarring and bullous change remains present. ??This is stable compared to the previous study. ??Mild dependent subsegmental atelectasis is seen. ??There is no evidence of suspicious pulmonary nodule, focal consolidation or pleural effusion. Images of the mediastinal structures demonstrate diffuse vascular calcification. ??There is no evidence of mass or lymphadenopathy. The axillary structures appear normal. ??Sections through the upper abdomen are unremarkable. IMPRESSION: 1. ??APICAL PULMONARY SCARRING AND MILD BULLOUS CHANGE, STABLE COMPARED TO 2008. 2. ??NO NEW NODULES OR INFILTRATES. 3. ??DIFFUSE VASCULAR CALCIFICATION. Interpreting Physician: ??DR RON JENSEN M.D. ??Read on: ??Feb ??1 2015 1:56P Transcribed by: ??tony ??On: Dec ??1 2016 ??3:21P Approved Electronically by: ??MIKEY Garner, DR VELASQUEZ ??on: ??Feb ??1 2016 5:18P Attending: ??GRETA ISAAC Requesting: ??GRETA ISAAC Requesting Fax: ??[phone] Attending Fax: ??[phone] Attending ID: ??[id number] Requesting ID: ??[id number] Report To 1 ID: ??[id number] Report To 1 Name: ??GRETA ISAAC Report To 1 FAX: ??[phone] NextGen Order #: Procedure Note Provider, MD Shilo - 03/03/2017 CC: DR Jennifer BLANTON CT Chest W [id number] Acc#: [id number] DATE OF EXAM: Dec 10 2015 CLINICAL HISTORY: COPD exacerbation, persistent cough. RESULT: Helically acquired axial images were obtained from the lung apices to thebase of the diaphragm following the administration of 75 ml of Kzeamxy142. Comparison is made with the prior study dated 03/27/08. Apicalscarring and bullous change remains present. This is stable compared tothe previous study. Mild dependent subsegmental atelectasis is seen.There is no evidence of suspicious pulmonary nodule, focal consolidationor pleural effusion. Images of the mediastinal structures demonstratediffuse vascular calcification. There is no evidence of mass orlymphadenopathy. The axillary structures appear normal. Sections throughthe upper abdomen are unremarkable. IMPRESSION: 1. APICAL PULMONARY SCARRING AND MILD BULLOUS CHANGE, STABLE COMPARED [id number]. 2. NO NEW NODULES OR INFILTRATES. 3. DIFFUSE VASCULAR CALCIFICATION. Interpreting Physician: DR RON JENSEN M.D. Read on: Dec 10 20151:56P Transcribed by: tony On: Dec 10 2015 3:21P Approved Electronically by: MIKEY Garner, DR VELASQUEZ on: Dec 10 20155:18P Attending: GRETA ISAAC Requesting: GRETA ISAAC Requesting Attending Attending ID: [id number] Requesting ID: [id number] Report To 1 ID: [id number] Report To 1 Name: GRETA ISAAC Report To 1 FAX: [phone] NextGen Order #: us Historical Provider MD BARR CT PROCEDURES Final R esult documented in this encounter Visit Diagnoses Diagnosis Chronic obstructive pulmonary disease with acute exacerbation (HCC) documented in this encounter Care Teams Bulk Plant Agent Relationship Specialty Start Date End Date Cassius Blanton MD [address] [facility] [facility] [address] [address] PCP - General 01/24/13 01/20/17 documented as of this encounter
--- OUTSIDE RECORDS SUMMARY | 2024-10-26 01:19 | XMS_ITS | Encounter Summary ---
Author Organization [facility] Healthcare Address [address] [place] [address] Care Team Providers Care Channeler Name Role Phone Cassius London MD Primary Care Provider + Encounter Details Date Type Department Care Team (Late st Contact Info) Description 05/15/2009 12:01 AM CDT - 05/15/2009 11:59 PM CDT Hospital Encounter [facility] Cassius [place] MD [address] [place] [address] Hematuria Social History Tobacco Use Types Packs/Day Years Used Date Smoking Tobacco: Never Assessed Sex and Gender Information Value Date Recorded Sex Assigned at Not on file Legal 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
--- OUTSIDE RECORDS SUMMARY | 2024-10-26 01:19 | XMS_ITS | Encounter Summary ---
Author Organization [facility] Healthcare Address [address] [place] [address] Care Team Providers Care Filling Winder Name Role Phone Cassius London MD Primary Care Provider + Encounter Details Date Type Department Care Team (Late st Contact Info) Description 06/19/2015 9:18 AM CDT - 06/19/2015 11:40 AM CDT Hospital Encounter [facility] Jay Jay Gutierrez MD [address] [place] [address] [facility] [address] [place] [address] Special screening for malignant neoplasms, colon; Benign neoplasm of colon; Diverticulosis of colon; Hemorrhoids Social History Tobacco Use Types Packs/Day Years Used Date Smoking Tobacco: Former Alcohol Use Standard Drinks/Week Comments No 0 (1 standard drink = 0.6 oz pur e alcohol) Sex and Gender Information Value Date Recorded Sex Assigned at Not on file 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 Admit Date: 06/19/2015 Dict.: Jay Jay Flor M.D. Disch. Date: 06/19/2015 NAME OF PROCEDURE: Colonoscopy with polypectomy. HISTORY This is a 74-year-old male with a prior history of colonic polyps. PHYSICAL EXAMINATION Well-developed male. Lungs are clear. Cardiovascular exam is unremarkable. PROCEDURE Colonoscopy with polyps was performed with the Olympus videoendoscope. The patient was premedicated by anesthesia. On digital exam, he has got grade III hemorrhoids. We inserted the endoscope and advanced through a diverticular latent sigmoid. In the proximal transverse, we found a 2 x 1 cm sessile serrated adenoma. We advanced from there to the cecum. The colon prep was excellent. We carefully searched the colon. On withdrawal of the proximal transverse, we biopsied and coagulated the SSA. We then carefully searched the remainder of the colon. No other abnormalities were noted. He tolerated the procedure without difficulty. POSTOPERATIVE DIAGNOSES 1. A 2 X 1 cm sessile serrated adenoma proximal transverse, biopsied and coagulated. 2. Sigmoid diverticulosis. 3. Hemorrhoidal disease. PLAN Surveillance in one year. Pascual Moore TD: 06/20/2015 07:04 CC: Cassius London M.D. Electronically Authenticated by: Jay Jay Flor MD On 06/21/2015 07:43 AM CDT documented in this encounter Plan of Treatment Not on file documented as of this encounter Procedures Procedure Name Priority Date/Time Associated Diagnosis Comments COLONOSCOPY IMAGES 06/19/2015 COLONOSCOPY 06/19/2015 12:00 AM CDT SURGICAL PATHOLOGY 06/19/2015 documented in this encounter Results * Surgical pathology (06/19/2015) Narrative 06/19/2015 Ordered by an unspecified provider. Historical Provider LAB PATHOLOGY ORDERABLES Final Result * COLONOSCOPY (06/19/2015 12:00 AM CDT) Anatomical Region Laterality Modality Other Narrative 06/19/2015 12:00 AM CDT Ordered by an unspecified provider. Procedure Note ProviderShilo MD - 06/19/2015 12:00 AM CDT PROCEDURE REPORT Patient: CLARITA JUAN Account: [id number] Room No: : 1940 Patient Type: [facility] Attend.: Jay Jay Flor M.D. Admit Date: 06/19/2015 Dict.: Jay Jay Flor M.D. Disch. Date: 06/19/2015 NAME OF PROCEDURE: Colonoscopy with polypectomy. HISTORY This is a 74-year-old male with a prior history of colonic polyps. PHYSICAL EXAMINATION Well-developed male. Lungs are clear. Cardiovascular exam isunremarkable. PROCEDURE Colonoscopy with polyps was performed with the Olympus videoendoscope.The patient was premedicated by anesthesia. On digital exam, he has got grade III hemorrhoids. We inserted theendoscope and advanced through a diverticular latent sigmoid. In the proximaltransverse, we found a 2 x 1 cm sessile serrated adenoma. We advanced from there tothe cecum. The colon prep was excellent. We carefully searched the colon. On withdrawal of the proximal transverse, we biopsied and coagulated the SSA.We then carefully searched the remainder of the colon. No other abnormalitieswere noted. He tolerated the procedure without difficulty. POSTOPERATIVE DIAGNOSES 1. A 2 X 1 cm sessile serrated adenoma proximal transverse, biopsiedand coagulated. 2. Sigmoid diverticulosis. 3. Hemorrhoidal disease. PLAN Surveillance in one year. Jay Jay Flor M.D. /jossy TD: 06/20/2015 07:04 CC: Cassius London M.D. Electronically Authenticated by: Jay Jay Flor MD On 06/21/2015 07:43 AM CDT us Historical Provider ENDOSCOPY PROCEDURES Marah l Result * COLONOSCOPY IMAGES (06/19/2015) Anatomical Region Laterality Modality Other Narrative 06/19/2015 Ordered by an unspecified provider. us Historical Provider GI PROCEDURE ORDERABLES F inal Result documented in this encounter Visit Diagnoses Diagnosis Special screening for malignant neoplasms, colon Benign neoplasm of colon Diverticulosis of colon Diverticulosis of colon (without mention of hemorrhage) Hemorrhoids documented in this encounter Care Teams Filling Winder Relationship Specialty Start Date End Date Cassius London MD [address] [address] PCP - General 01/24/13 01/20/17 documented as of this encounter
--- OUTSIDE RECORDS SUMMARY | 2024-10-26 01:19 | XMS_ITS | Encounter Summary ---
Author Organization [facility] Healthcare Address [address] [place] [address] Care Team Providers Care Cell Repairer Name Role Phone Cassius London MD Primary Care Provider + Encounter Details Date Type Department Care Team (Late st Contact Info) Description 09/24/2009 12:01 AM NEUROSURGERY PHYSICIAN - 09/24/2009 11:59 PM NEUROSURGERY PHYSICIAN Hospital Encounter [facility] Cassius Duarte MD [address] [place] [address] [place] [address] Disturbance of skin sensation Social History Tobacco Use Types Packs/Day Years Used Date Smoking Tobacco: Never Assessed Sex and Gender Information Value Date Recorded Sex Assigned at Not on file 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 Gender Identity Not on file Sexual Orientation Not on file documented as of this encounter Medications at Time of Discharge [id number] c-vit K-lycop (ONE-A-DAY MEN'S MULTIVITAMIN) 400-20-300 mcg tablet Take one by mouth one time per day 0 0 08/23/2008 simvastatin (ZOCOR) 40 mg tablet TAKE ONE TABLET BY MOUTH ONCE DAILY IN THE EVENING 90 5 08/28/2008 02/06/2022 documented as of this encounter Plan of Treatment Not on file documented as of this encounter Visit Diagnoses Diagnosis Disturbance of skin sensation documented in this encounter Care Teams Cell Repairer Relationship Specialty Start Date End Date Cassius London MD [address] [place] [address] [place] [address] PCP - General 01/17/08 01/23/13 documented as of this encounter
--- OUTSIDE RECORDS SUMMARY | 2024-10-26 01:26 | XMS_ITS | Continuity of Care Document ---
Author Organization [facility] Address [address] [facility] [address] Sexton [address] [place] [phone] Phone Care Team Providers Care Gl Accountant Name Role Phone Corwin TOBI, Krys Unavailable Unavailable Allergies, Adverse Reactions, Alerts Substance Reaction Status Criticality HYDROCODONE BITARTRATE Active No In formation acetaminophen Active No Information Medications Medication Instructions Dosage Effective Dates (start - stop) Status Comments metoprolol tartrate 25 mg tablet take 1 tablet by oral route 2 times every day 25 MG - Active Eliquis 2.5 mg tablet take 1 tablet by oral route 2 times every day 2.5 MG - Active amlodipine 5 mg tablet take 1 tablet by oral route every day 5 MG - Active montelukast 10 mg tablet take 1 tablet by oral route every day in the evening 10 MG - Active albuterol sulfate HFA 90 mcg/actuation aerosol inhaler inhale 2 puff by inhalation route every 4 - 6 hours as needed 180 MCG - Active aspirin 81 mg tablet,delayed release take 1 tablet by oral route every day 81 MG - Active calcium citrate 200 mg calcium-vitamin D3 3.125 mcg (125 unit) tablet take one tablet daily - Active multivitamin tablet take 1 tablet by oral route every day 1 tablet - Active simvastatin 10 mg tablet take 1 tablet by oral route every day in the evening 10 MG - Active Klor-Con M10 mEq tablet,extended release take 2 tablet by oral route every day with food 20 MEQ - Active irbesartan 150 mg-hydrochlorothiazi de 12.5 mg tablet take 1 tablet by oral route every day 1.00 tablet - Active Trelegy Ellipta 100 mcg-62.5 mcg-25 mcg powder for inhalation inhale 1 puff by inhalation route every day at the same time each day 1.00 puff - Active tamsulosin 0.4 mg capsule take 1 capsule by oral route every day 1/2 hour following the same meal each day 0.4 MG - Active Procedures Procedure Date Fundus Photography W/ Report Office/outpatient Visit, Est Fundus Photography W/ Report Eye Exam & Treatment No Charge Refraction Post-op Follow-up Visit Post-op Follow-up Visit Remove Cataract, Insert Lens IOLMaster-Professional No Charge Refraction Post-op Follow-up Visit Post-op Follow-up Visit Remove Cataract, Insert Lens IOLMaster-Professional Corneal Topography No Charge GDX Retina IOLMaster-Technical No Charge Refraction Office/outpatient Visit, Est Fundus Photography W/ Report Eye Exam & Treatment Refraction No Charge Optomap Fundus Photos 022 Eye Exam & Treatment Fundus Photography W/ Report Eye Exam & Treatment Probe Nasolacrimal Duct Probe Nasolacrimal Duct Office/outpatient Visit, Est Office/outpatient Visit, New Advance Directives Directive Yes / No Effective Date File Name Other Directive No N/A N/A WARNING:The information contained in this section is historical and is provided for information only and does not constitute a legal document or any assurance that the information is still accurate. Please verify the information with the hays of the legal document before using it for clinical purposes. Encounters Encounter Description Practice Location Reason(s) For Visit Diagnoses Date Provider Providers Copied on Encounter Office/outpa tient Visit, [facility], [address], [place], [place], [id number], [place] tel:[phone] SEC [place] Professional Follow up visit (chief complaint) Hypertensive retinopathy of both eyesMechanic al ectropion of lower eyelids of both eyesEpiphora due to insufficient drainage, bilateral Oct-1 6-202 4 Corwin OD Krys. [address] [place] [address] [employer] [facility], [address], [place], [place], [id number], [place]. tel:[phone] Referring Provider: Cassius Stevens, [address] [place] [address], [address]. tel:[phone] [facility], [address] [place] [address] [address], [place], [place], [id number], [place] tel:[phone] SEC Erick [facility] Professional Complete Exam (chief complaint) PCO (posterior capsular opacificatio n), bilateralVit reous degeneration , bilateralCWS (cotton wool spots)Periph eral reticular retinal degeneration [place] retinal degeneration , bilateralPre sence of intraocular lensDry eye syndrome of bilateral lacrimal glands Apr-1 6-202 4 Corwin OD Krys. [address] [place] [address] [employer] [facility], [address], [place], [place], [id number], [place]. tel:[phone] Referring Provider: Cassius Stevens, [address] [place] [address], [address]. tel:[phone] [facility], [address] [place] [address] [address], [place], [place], [id number], [place] tel:[phone] SEC [facility] Professional Post-Op (chief complaint) Post op visit Oct-0 4-202 3 Corwin OD Krys. [address] [place] [address] [employer] [facility], [address], [place], [place], [id number], [place]. tel:[phone] Referring Provider: Cassius Stevens, [address] [place] [address], [address]. tel:[phone] [facility], [address] [place] [address] [address], [place], [place], [id number], [place] tel:[phone] SEC Erick [facility]AM[facility] Professional Post-Op (chief complaint) Post op visit Sep-2 0 3 Corwin OD Krys. [address] [place] [address] [employer] [facility], [address], [place], [place], [id number], . tel:[phone] Referring Provider: Cassius Stevens, [address] [place] [address], [address]. tel:[phone] [facility], [address] [place] [address] [address], [place], [place], [id number], tel:[phone] [facility] No Information Sep- 3 Umm Louie. [address] [place] [address] [employer] [facility], [address], [place], [place], [id number], . tel:[phone] Referring Provider: Cassius Stevens, [address] [place] [address], [address]. tel:[phone] [facility], [address] [place] [address] [address], [place], [place], [address], tel:[phone] SEC [place] No Information Sep- [address] [facility] [address] [employer] [facility], [address], [place], [place], [address], [place]. tel:[phone] Referring Provider: Cassius Stevens, [address] [place] [address], [address]. tel:[phone] [facility], [address] [place] [address] [address], [place], [place], [id number], tel:[phone] SEC Erick [facility] Professional Post-Op (chief complaint) Post op visit Sep-0 3 Corwin OD Krys. [address] [place] [address] [employer] [facility], [address], [place], [place], [id number], [place]. tel:[phone] Referring Provider: Cassius Stevens, [address] [place] [address], [address]. tel:[phone] [facility], [address] [place] [address] [address], [place], [place], [address], [place] tel:[phone] SEC Erick [facility] Professional 1 day CE/IOL PO (chief complaint) Post op visit 3 Ursula OD Emelina. [address] [place] [address] [address], [address], [place], [place], [address], [place]. tel:[phone] Referring Provider: Cassius Stevens, [address] [place] [address], [address]. tel:[phone] [facility], [address] [place] [address] [address], [place], [place], [id number], [place] tel:[phone] [facility] No Information 3 Umm Palma. [address] [place], [place] [address], [address], [place], [place], [address], [place]. tel:[phone] Referring Provider: Cassius Stevens, [address] [place] [address], [address]. tel:[phone] [facility], [address] [place] [address] [address], [place], [place], [address], [place] tel:[phone] SEC [place] No Information [address] [facility], [address], [place], [place], [address], [place]. tel:[phone] Referring Provider: Cassius Stevens, [address] [place] [address], [address]. tel:[phone] Office/outpa tient Visit, [facility], [address] [place] [address] [address], [place], [place], [id number], [place] tel:[phone] SEC E[facility] Professional Cataract evaluation (chief complaint) Combined forms of age-related cataract, bilateralMin or opacity of cornea, left eye [address] [facility], [address], [place], [place], [address], . tel:[phone] Referring Provider: Cassius Stevens, [address] [place] [address], [address]. tel:[phone] [facility], [address] [place] [address] [address], [place], [place], [address], [place] tel:[phone] SEC [facility] Professional Complete Exam (chief complaint) Age-related nuclear cataract, right eyeCombined forms of age-related cataract, left eyeLattice degeneration of both retinasMecha nical ectropion of lower eyelids of both eyes 3 Basim Huynh. [address] [facility] [place], [address], [place]. tel:[phone] Referring Provider: Cassius Stevens, [address] [place] [address], [address]. tel:[phone] [facility], [address] [place] [address] [address], [place], [place], [id number], [place] tel:[phone] SEC [facility] Professional Complete Exam (chief complaint) Age-related nuclear cataract, right eyeCombined forms of age-related cataract, left eyeMechanica l ectropion of lower eyelids of both eyes 2 Basim Huynh. [address] [facility] [place], [address], [place]. tel:[phone] Referring Provider: Cassius Stevens, [address] [place] [address], [address]. tel:[phone] [facility], [address] [place] [address] [address], [place], [place], [address], [place] tel:[phone] SEC [facility] Professional 6 wk Complete exam (chief complaint) Age-related nuclear cataract, bilateralVit reous degeneration , bilateralPin guecula, left eyeHistory of iritisLattic e degeneration of both retinasMecha nical ectropion of lower eyelids of both eyesBilatera l epiphora 0 Basim Huynh. [address] [employer], [address] [place], [address], [place]. tel:[phone] Referring Provider: Cassius Stevens, [address] [place] [address], [address]. tel:[phone] Office/outpa tient Visit, [facility], [address] [place] [address] [address], [place], [place], [address], tel:[phone] SEC Erick [facility] Professional 1 week Iritis f/u (chief complaint) Iritis of right eye 0 Basim Huynh. [address] [employer] [facility] [address], [facility] [place], [address], . tel:[phone] Referring Provider: Cassius Stevens, [address] [place] [address], [address]. tel:[phone] Office/outpa tient Visit, [facility], [address] [place] [address] [address], [place], [place], [address], [place] tel:[phone] SEC Erick [facility] Professional WIE: Pain/Photop hobia OD (chief complaint) Iritis of right eye 0 Basim Huynh. [address] [employer] [address], [facility] [place], [address], . tel:[phone] Referring Provider: Cassius Stevens, [address] [place] [address], [address]. tel:[phone] Family History Family Member Type Diagnosis Age At Onset No Information Payers Payer name Insurance type Covered alliance party ID Zinaa ellieshaye(s) [employer] Medicare CI [id number] Social History Type Description Quantity Date Captured Comments Alcohol Use Details No Caffeine Use Details Tobacco Use Status Ex-cigarette smoker 024 Smoking Status Former smoker Smoking Tobacco Use Details Cigarette: Age Started: 22, Age Stopped: 74, Years Used 53 Cigarette: No Details Available Sex Male Chief Complaint And Reason For Visit From encounter dated '08/24/2024 10:30'. Follow up visit (chief complaint). Description: The 83 year old patient presents for evaluation of Follow up visit in the right eye and left eye. Monitoring HTN Retinopathy OU. Pt states eyes are still feeling pretty dry but no change to vision OU. Pt states eyes are watering all the time. Reason For Referral Reason For Referral No Information Plan Of Treatment Date Type Action Status Goal Tobacco cessation counseling completed Goal Tobacco cessation counseling completed Goal Tobacco cessation counseling completed Appointment Xavier Clarke BOOKED Patient Education Learning About Ectropio n completed Patient Education Learning About YAG Lase r Capsulotomy completed Patient Education Cataract Surgery: What to Expect at Home completed Patient Education The Eye: Anatomy Sketch completed Patient Education Cataracts: Care Instruc tions completed Patient Education Cataracts: Care Instruc tions completed Patient Education Iritis: Care Instructio ns completed Patient Education Iritis: Care Instructio ns completed History Of Present Illness Encounter Date Complaint History Of Prese nt Illness Follow up visit The 83 year old patient presents for evaluation of Follow up visit in the right eye and left eye. Monitoring HTN Retinopathy OU. Pt states eyes are still feeling pretty dry but no change to vision OU. Pt states eyes are watering all the time. Complete Exam The 83 year old patient presents for evaluation of Complete Exam in the right eye and left eye. Patient is pseudo ou. Patient denies any changes in vision ou. Patient wears reading glasses only. Patient states his eyes have been itching and watering. Medication module gone over with patient. Patient is wearing a heart monitor for 30 days. Post-Op The 82 year old patient presents for a 2 week post op CE OD. Patient is using Pred bid OD. Patient states OD is doing good. Post-Op The 82 year old patient presents for a 1 day post op CE OD. Patient to begin Pred and Poly qid OD. Patient states OD is blurry and it feels like something is in it. Post-Op The 82 year old patient presents for a 2 week post op CE OS. Patient is using Pred bid OS. Patient states OS is doing good but still a little blurry. Patient wishes to proceed with CE OD. Patient is bothered by glare around lights at night. Patient has a hard time seeing the TV and seeing road signs. 1 day CE/IOL PO The 82 year old patient presents for evaluation of 1 day CE/IOL PO in the left eye. Pt states there felt like something small in his eye. Pt states vision is still a little blurry. Pt has all gtts and knows how to take them as instructed. Cataract evaluation The 82 year old patient presents for a cataract evaluation ou per Dr. Stallworth. Patient is bothered by glare around lights at night. Patient has a hard time seeing road signs and watching TV. Complete Exam The 82 year old patient presents for evaluation of Complete Exam in the right eye and left eye. Patient states he is aware of any changes with eyes. VA seems stable OU. Patient states eyes water. Complete Exam The 81 year old patient presents for evaluation of Complete Exam in the right eye and left eye. Hx of CAT OU, THELMA OU, Arcus OU, Iritis OD, PVD OU, Ectropion OU, Lattice degeneration OU, and NDL Irrigation OU. Pt reports he doesn't use any gtts, OU. Pt reports he has trouble reading street signs while driving, trouble watching tv, and he is bothered by glare from bright lights, OU, x 1 yr. Pt wears OTC readers but didn't bring any today. Pt reports he doesn't want CE but he would like new gls. 6 wk Complete exam The 79 year o ld male presents for evaluation of 6 wk Complete exam in the right eye and left eye. Hx of CAT OU, THELMA OU, Arcus OU, and Iritis OD. Pt reports VA, OU, DV, without gls is good. Pt reports he wears OTC readers, left them at home, and does well with those for NV, but he does have to get a magnifier for tiny print like on medicine bottles. Pt reports OD has cleared up but OU are dry, x 2-3 yrs. Pt reports he isn't using any gtts, OU. Pt deferred MRX. 1 week Iritis f/u The 79 year ol d male presents for evaluation of 1 week Iritis f/u in the right eye. Patient states OD is much better. Patient using Cyclogyl TID OD and Pred every hour in the right eye. WIE: Pain/Photophobia OD The 79 year old male presents for evaluation of WIE: Pain/Photophobia OD. Pt reports pain, light sensitivity, and tearing OD since yesterday morning. Pt has had this about 3 times in the past 10 years. Pt does not use gtts. Pt does not use Rx glasses. Pt declines decreased vision OD. 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
--- OUTSIDE RECORDS SUMMARY | 2024-10-26 01:27 | XMS_ITS | Continuity of Care Document ---
Author Organization [facility] Address [address] [place] [id number] Phone Care Team Providers Care Optical Element Coater Name Role Phone Corwin TOBI, Krys Unavailable [...] Copied on Encounter Office/outpa tient Visit, Est [facility], [address], [place], [place], [address], [place] tel:[phone] SEC [place] Professional Follow up visit (chief complaint) Hypertensive retinopathy of both eyesMechanic al ectropion of lower eyelids of both eyesEpiphora due to insufficient drainage, bilateral Oct-1 6-202 4 Corwin OD Krys. [address] [place] [address] [facility], [address], [place], [place], [address], [place]. tel:[phone] Referring Provider: Cassius Stevens, [address] [place] [address], [address]. tel:[phone] [facility], [address] [place] [address] [address], [place], [place], [address], [place] tel:[phone] SEC Erick ND Professional Complete Exam (chief complaint) PCO (posterior capsular opacificatio n), bilateralVit reous degeneration , bilateralCWS (cotton wool spots)Periph eral reticular retinal degeneration [place] retinal degeneration , bilateralPre sence of intraocular lensDry eye syndrome of bilateral lacrimal glands Apr-1 6-202 4 Corwin OD Krys. [address] [place] [address] [facility], [address], [place], [place], [address], [place]. tel:[phone] Referring Provider: Cassius Stevens, [address] [place] [address], [address]. tel:[phone] [facility], [address] [place] [address] [address], [place], [place], [address], [place] tel:[phone] SEC [place] Professional Post-Op (chief complaint) Post op visit Oct-0 4-202 3 Corwin OD Krys. [address] [place] [address] [facility], [address], [place], [place], [address], [place]. tel:[phone] Referring Provider: Cassius Stevens, [address] [place] [address], [address]. tel:[phone] [facility], [address] [place] [address] [address], [place], [place], [address], [place] tel:[phone] SEC Erick OCAMPO Professional Post-Op (chief complaint) Post op visit Sep-2 0 3 Corwin OD Krys. [address] [place] [address] [facility], [address], [place], [place], [address], . tel:[phone] Referring Provider: Cassius Stevens, [address] [place] [address], [address]. tel:[phone] [facility], [address] [place] [address] [address], [place], [place], [address], tel:[phone] [facility] No Information Sep- 3 Mum Louie. [address] [place] [address] [facility], [address], [place], [place], [address], . tel:[phone] Referring Provider: Cassius Stevens, [address] [place] [address], [address]. tel:[phone] [facility], [address] [place] [address] [address], [place], [place], [address], tel:[phone] [place] No Information Sep- 3 Umm Louie. [facility] [place] [facility], [address], [place], [place], [address], [place]. tel:[phone] Referring Provider: Cassius Stevens, [address] [place] [address], [address]. tel:[phone] [facility], [address] [place] [address] [address], [place], [place], [address], tel:[phone] SEC Erick [facility]AM[facility] Professional Post-Op (chief complaint) Post op visit Sep-0 3 Corwin OD Krys. [address] [place] [address] [facility], [address], [place], [place], [address], [place]. tel:[phone] Referring Provider: Cassius Stevens, [address] [place] [address], [address]. tel:[phone] [facility], [id number] [place] [address] [address], [place], [place], [address], [place] tel:[phone] SEC Erick [place] Professional 1 day CE/IOL PO (chief complaint) Post op visit 3 Ursula OD Emelina. [address] [place] [address] [facility], [address], [place], [place], [address], [place]. tel:[phone] Referring Provider: Cassius Stevens, [address] [place] [address], [address]. tel:[phone] [facility], [address] [place] [address] [address], [place], [place], [address], [place] tel:[phone] [facility] No Information 3 Umm Palma. [address] [place], [place] [address], [address], [place], [place], [address], [place]. tel:[phone] Referring Provider: Cassius Stevens, [address] [place] [address], [address]. tel:[phone] [facility], [address] [place] [address] [address], [place], [place], [address], [place] tel:[phone] [place] No Information 3 Umm Louie. [facility] [employer], [address], [place], [place], [address], [place]. tel:[phone] Referring Provider: Cassius Stevens, [address] [place] [address], [address]. tel:[phone] Office/outpa tient Visit, [facility], [address] [place] [address] [address], [place], [place], [address], [place] tel:[phone] SEC Erick [place] Professional Cataract evaluation (chief complaint) Combined forms of age-related cataract, bilateralMin or opacity of cornea, left eye 3 Austin Louie. [facility] [employer], [address], [place], [place], [address], . tel:[phone] Referring Provider: Cassius Stevens, [address] [place] [address], [address]. tel:[phone] [facility], [address] [place] [address] [address], [place], [place], [address], [place] tel:[phone] SEC [facility] Professional Complete Exam (chief complaint) Age-related nuclear cataract, right eyeCombined forms of age-related cataract, left eyeLattice degeneration of both retinasMecha nical ectropion of lower eyelids of both eyes 3 Basim Huynh. [address] [facility] [place], [address], [place]. tel:[phone] Referring Provider: Cassius Stevens, [address] [place] [address], [address]. tel:[phone] [facility], [address] [place] [address] [address], [place], [place], [address], [place] tel:[phone] SEC [facility] Professional Complete Exam (chief complaint) Age-related nuclear cataract, right eyeCombined forms of age-related cataract, left eyeMechanica l ectropion of lower eyelids of both eyes 2 Basim Huynh. [address] [facility] [place], [address], [place]. tel:[phone] Referring Provider: Cassius Stevens, [address] [place] [address], [address]. tel:[phone] [facility], [address] [place] [address] [address], [place], [place], [address], [place] tel:[phone] SEC [facility] Professional 6 wk Complete exam (chief complaint) Age-related nuclear cataract, bilateralVit reous degeneration , bilateralPin guecula, left eyeHistory of iritisLattic e degeneration of both retinasMecha nical ectropion of lower eyelids of both eyesBilatera l epiphora 0 Basim Huynh. [address] [employer], [address] [place], [address], [place]. tel:[phone] Referring Provider: Cassius Stevens, [address] [place] [address], [address]. tel:[phone] Office/outpa tient Visit, [facility], [address] [place] [address] [address], [place], [place], [address], tel:[phone] SEC Erick [facility] Professional 1 week Iritis f/u (chief complaint) Iritis of right eye 0 Basim Huynh. [address] [facility] [employer], [facility] [place], [address], . tel:[phone] Referring Provider: Cassius Stevens, [address] [place] [address], [address]. tel:[phone] Office/outpa tient Visit, [facility], [address] [place] [address] [address], [place], [place], [address], [place] tel:[phone] SEC Erick [facility] Professional WIE: Pain/Photop hobia OD (chief complaint) Iritis of right eye 0 Basim Huynh. [address] [employer], [facility] [place], [address], . tel:[phone] Referring Provider: Cassius Stevens, [address] [place] [address], [address]. tel:[phone] Family History Family Member Type Diagnosis Age At Onset No Information Payers Payer name Insurance type Covered republican ID Zinaa ellieshaye(s) [employer] CI [id number] Social History Type Description Quantity Date Captured [...]
== END 2024-10-22 10:57 | disposition home or self-care (01) ==
PROVIDERS: Emergency Provider Nurse Practitioner Family; PCP Internal Medicine
DX: J44.1 Chronic obstructive pulmonary disease with (acute) exacerbation (principal); F17.210 Nicotine dependence, cigarettes, uncomplicated; I48.91 Unspecified atrial fibrillation; I10 Essential (primary) hypertension; E78.5 Hyperlipidemia, unspecified; Z79.01 Long term (current) use of anticoagulants
CPT/HCPCS: 71046; 94640; 96372; 99213; G0463; J2919